=== PATIENT | male | born 1955 | race Caucasian/White ===

== ENCOUNTER → 2019-12-05 08:36 | Outpatient (BNVA) | payer OTHER, SELFPAY | PROVIDERS: PCP Nurse Practitioner Family; Visit Provider Student in an Organized Health Care Education/Training Program | DX: M06.00 Rheumatoid arthritis without rheumatoid factor, unspecified site (principal); E27.40 Unspecified adrenocortical insufficiency; M70.61 Trochanteric bursitis, right hip; M70.62 Trochanteric bursitis, left hip; Z79.899 Other long term (current) drug therapy | CPT/HCPCS: 20610; 99213 ==

== ENCOUNTER 2019-12-22 06:04 | Outpatient (REF) | payer OTHER, SELFPAY ==
[2019-12-22 08:16] LABS: Albumin Level 4.3 g/dL (3.5-5.0)
[2019-12-22 08:46] LABS: Vitamin D 25-OH Total 58.1 ng/mL (>30)
[2019-12-25 12:12] LABS: Calcitonin 9 pg/mL (<=10)
== END 2019-12-22 06:05 | disposition home or self-care (01) ==
LOC: HO.LAB 06:04
PROVIDERS: PCP Nurse Practitioner Family; Visit Provider Internal Medicine Endocrinology, Diabetes & Metabolism
DX: M85.88 Other specified disorders of bone density and structure, other site (principal)
CPT/HCPCS: 82040; 82306; 82308

== ENCOUNTER → 2020-01-21 07:39 | Outpatient (BNVA) | payer OTHER, SELFPAY | PROVIDERS: PCP Nurse Practitioner Family; Referring Provider Nurse Practitioner Family; Visit Provider Internal Medicine Endocrinology, Diabetes & Metabolism | DX: Z13.89 Encounter for screening for other disorder (principal) | CPT/HCPCS: Q3014 ==

== ENCOUNTER 2020-01-25 20:35 | Emergency (ER) | payer OTHER, SELFPAY ==
--- NOTE | 2020-01-25 20:43 | ED_ITS ---
HPI - Allergic Reaction General Chief complaint: Allergic Reaction Stated complaint: Allergic Reaction Time Seen by Provider: 01/25/20 20:41 Source: patient Mode of arrival: ambulatory Limitations: no limitations History of Present Illness HPI narrative: patient's history of frequent allergic reactions from multiple agents today just prior to arrival patient noticed similar allergic reaction with rash on his face difficulty in breathing tingling on his hands and tongue, his gave him 1 epi IM and he took 4 tablets of Benadryl prior to arrival now is feeling better but is still feel short of breath. Patient denies any throat swelling at this time no tongue swelling MD complaint: allergic reaction Onset (ago): minute(s) (30) Exposure: unknown Symptoms: rash, itching, facial swelling and difficulty breathing Severity: moderate Treatment prior to arrival: benadryl and epinephrine Previous Allergic Reaction History: anaphylaxis Related Data Home Medications Medication Instructions Recorded Confirmed denosumab 60 mg/mL subcutaneous 60 mg SUBCUT [id number] 12/03/19 01/21/20 syringe epinephrine 0.3 mg/0.3 mL 0.3 mg IM Q10M PRN 12/03/19 01/21/20 injection, auto-injector folic acid 1 mg tablet 1 mg PO DAILY 12/03/19 01/21/20 pravastatin 40 mg tablet 40 mg PO DAILY 12/03/19 01/21/20 blood sugar diagnostic #10 ea 01/21/20 01/21/20 lancets 28 gauge #100 ea 01/21/20 01/21/20 ropinirole 0.5 mg tablet 0.5 mg PO BEDTIME 01/21/20 01/21/20 Previous Rx's Medication Instructions Recorded aspirin 81 mg tablet,delayed 81 mg PO DAILY #90 tab 12/09/19 release methotrexate sodium 2.5 mg tablet See Rx Instructions PO QWEEK #120 12/18/19 tab tamsulosin 0.4 mg capsule 0.4 mg PO DAILY #90 cap 01/12/20 venlafaxine 75 mg capsule,extended 75 mg PO DAILY #90 cap 01/12/20 release 24 hr ketoconazole 2 % shampoo 1 applic TOPICAL 2XW 30 Days #120 01/14/20 ml cholecalciferol (vitamin D3) 50 50 mcg PO DAILY 90 Days #90 cap 01/21/20 mcg (2,000 unit) capsule metformin 500 mg tablet 500 mg PO BID 90 Days #180 tab 01/21/20 prednisone 1 mg tablet 5 mg PO DAILY 90 Days #450 tab 01/21/20 prednisone 5 mg tablet 5 mg PO DAILY 90 Days #90 tab 01/21/20 Allergies Allergy/AdvReac Type Severity Reaction Status Date / Time ibuprofen [From MOTRIN] Allergy Unknown ANAPHYLAXIS Unverified 11/20/19 15:38 methadone Allergy Unknown Verified 07/15/19 00:00 dogs/cats Allergy Unknown Uncoded 11/11/19 00:00 dust mites Allergy Unknown Uncoded 11/11/19 00:00 mice Allergy Unknown Uncoded 11/11/19 00:00 Motrin Allergy Unknown anaphylaxis Uncoded 07/15/19 00:00 NSAID Allergy Unknown Uncoded 11/11/19 00:00 NSAIDS Allergy Unknown Uncoded 07/15/19 00:00 Review of Systems Review of Systems: REVIEW OF SYSTEMS: Pertinent positives and negatives are stated above in the history. GEN: no fevers, chills, fatigue HEENT: no nasal congestion, sore throat, ear pain NEURO: no headache, dizziness, focal weakness PULM: no cough, shortness of breath CV: no chest pain, palpitations, LE edema ABD: no abdominal pain, nausea, vomiting, diarrhea : no dysuria, urgency, frequency SKIN: rash on the face and upper chest ROS otherwise negative x 10 PMFSH Past Medical History Medical History Adrenal 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 Diabetes type 2, controlled Obesity (BMI 30-39.9) Osteopenia Painful total knee replacement, right Vitamin D deficiency Surgical History History of knee replacement procedure of left knee History of knee replacement procedure of right knee Hx of cardiac cath Social History Social History Household Members: Spouse Housing: House Alcohol intake: current Alcohol intake frequency: a few times a month Alcohol type: beer and hard liquor Smoking Status: Former smoker Advance Directives: No Advance Directives Information Provided: No service: No Current occupational status: retired Physical Exam 2 Vital Signs: Vital Signs: Last Vital Signs Temp 98 F 01/25/20 20:45 Pulse 74 01/25/20 21:30 Resp 16 01/25/20 21:30 BP 136/62 01/25/20 21:30 Pulse Ox 95 01/25/20 20:45 Body Mass Index 39.0 Appearance: Alert. Oriented X3. No acute distress. anxious Eyes: Pupils equal, round and reactive to light. ENT: Pharynx normal. no swelling of tongue uvula or lips Neck: Normal inspection. Neck supple. CVS: Normal heart rate and rhythm. Pulses normal. Respiratory: No respiratory distress. decreased air entry bilateral Abdomen: Soft and nontender. Skin: Skin warm and dry. Normal skin color. Normal skin turgor. Extremities: No lower extremity edema. Good range of movement Neuro: Oriented X 3. No motor deficit. No sensory deficit. Course Reevaluation(s) Reevaluation #1: patient feeling much better now tingling since she has since gone no shortness of breath no rash at this time will discharge him home patient received IV Solu-Medrol IV Pepcid and albuterol treatment in the ER and already had EpiPen at home and took 4 Benadryl at home prior to arrival Time: 21:36 Discharge Plan Discharge Clinical Impression: Allergic reaction Patient Disposition: Home, Self-Care Instructions: Anaphylaxis (ED) Additional Instructions: continue your EpiPen as needed for severe allergic reactions, take Benadryl as advised. Prescriptions: No Action aspirin 81 mg tablet,delayed release (DR/EC) 81 mg PO DAILY Qty: 90 RF: 4 methotrexate sodium 2.5 mg tablet See Rx Instructions PO QWEEK Qty: 120 RF: 0 venlafaxine 75 mg capsule,extended release 24hr 75 mg PO DAILY Qty: 90 RF: 0 tamsulosin 0.4 mg capsule 0.4 mg PO DAILY Qty: 90 RF: 0 ketoconazole 2 % shampoo 1 applic topical 2XW 30 Days Qty: 120 RF: 0 epinephrine [EpiPen] 0.3 mg/0.3 mL auto-injector 0.3 mg IM Q10M PRNRF: 0 folic acid 1 mg tablet 1 mg PO DAILY RF: 0 pravastatin 40 mg tablet 40 mg PO DAILY RF: 0 Prolia 60 mg/mL syringe 60 mg subcut [id number] RF: 0 (DME) FreeStyle Lite Strips Strip See Rx Instructions ea Not Applicable .MEDSUPPLY Qty: 10 RF: 0 ropinirole 0.5 mg tablet 0.5 mg PO BEDTIME RF: 0 (DME) lancets 28 gauge misc See Rx Instructions ea topical DAILY Qty: 100 RF: 0 prednisone 5 mg tablet 5 mg PO DAILY 90 Days Qty: 90 RF: 1 prednisone 1 mg tablet 5 mg PO DAILY 90 Days Qty: 450 RF: 1 cholecalciferol (vitamin D3) 50 mcg (2,000 unit) capsule 50 mcg PO DAILY 90 Days Qty: 90 RF: 1 metformin 500 mg tablet 500 mg PO BID 90 Days Qty: 180 RF: 1 Interventions: ED Discharge Assessment Last Done: 01/25/20 21:50 Discharge Date/Time: 01/25/20 21:52
[2020-01-25 20:45] VITALS: BP 181/86; PULSE 70; RESP 16; TEMP 36.6; O2SAT 95; BMI 39.0
[2020-01-25] MEDS: Albuterol Sulfate 90 MCG 8 GM INHALER 4 PUFF INHALE (20:54)
[2020-01-25] MEDS: methylPREDNISolone Sod Succ/PF 125 MG/2 ML VIAL IVPUSH ×2 (20:54)
[2020-01-25] MEDS: Famotidine/PF 20 MG/2 ML VIAL IVPUSH (20:55)
--- NOTE | 2020-01-25 21:29 | PC.NURSE ---
SPOKE WITH IN WR FOR UPDATE. PT STATES IM FEELING BETTER . PT REMAINS ALERT, RESPIRATIONS EASY, N/L. SKIN W/D.
[2020-01-25 21:30] VITALS: BP 136/62; PULSE 74; RESP 16
--- NOTE | 2020-01-25 21:34 | PC.NURSE ---
IN ROOM FOR RE-EVAL.
== END 2020-01-25 21:52 | disposition home or self-care (01) ==
PROVIDERS: Emergency Provider Internal Medicine; PCP Nurse Practitioner Family
DX: L23.9 Allergic contact dermatitis, unspecified cause (principal); Z79.899 Other long term (current) drug therapy; Z87.891 Personal history of nicotine dependence
CPT/HCPCS: 96374; 96375; 99284; J2930

== ENCOUNTER → 2020-03-11 09:26 | Outpatient (BNVA) | payer OTHER, SELFPAY | PROVIDERS: PCP Nurse Practitioner Family; Visit Provider Student in an Organized Health Care Education/Training Program | DX: M06.00 Rheumatoid arthritis without rheumatoid factor, unspecified site (principal); M70.61 Trochanteric bursitis, right hip; M70.62 Trochanteric bursitis, left hip; E27.3 Drug-induced adrenocortical insufficiency; Z79.899 Other long term (current) drug therapy | CPT/HCPCS: 20610; 99212 ==

== ENCOUNTER 2020-03-11 10:24 | Outpatient (REF) | payer OTHER, SELFPAY ==
[2020-03-11 14:27] LABS: MANUAL DIFF FLAG NO
[2020-03-11 14:32] LABS: Basophils Percent Auto 0.5 % (0-2); Eosinophils Absolute Auto 0.2 X10*3/uL (0.0-0.4); Eosinophils Percent Auto 2.1 % (0-4); Hematocrit 42.2 % (42-52); Imm Gran Abs Auto 0.07 X10*3/uL (0.00-0.03); Imm Gran Pct Auto 0.8 % (0.0-0.4); Lymphocytes Percent Auto 22.7 % (20-40); Mean Corpuscular HGB Conc 33.2 g/dl (31.0-36.0); Mean Corpuscular Hemoglobin 33.1 pg (27.0-33.0); Mean Corpuscular Volume 99.8 fL (80-98); Mean Platelet Volume 10.6 fL (9.4-12.4); Monocytes Absolute Auto 0.8 X10*3/uL (0.1-1.2); Monocytes Percent Auto 9.5 % (2-11); Neutrophils Absolute Auto 5.7 X10*3/uL (2.0-8.3); Neutrophils Percent Auto 64.4 % (45-73); Platelet Count 154 X10*3/uL (160-400); Red Blood Count 4.23 X10*6/uL (4.60-5.80); Red Cell Distribution Width 13.8 % (11.0-16.0); White Blood Count 8.8 X10*3/uL (4.8-10.8)
[2020-03-11 15:07] LABS: Alanine Aminotransferase 23 U/L (0-40); Albumin Level 4.2 g/dL (3.5-5.0); Alkaline Phosphatase 44 U/L (39-117); Anion Gap 15 (12-20); Aspartate Amino Transferase 14 U/L (5-37); Bilirubin Total 0.8 mg/dL (0.0-1.0); Blood Urea Nitrogen 16 mg/dL (9-16); C Reactive Protein 0.38 mg/dL (< or = 0.50); Carbon Dioxide 25 mmol/L (22-29); Chloride 104 mmol/L (96-108); Estimated Glomerular Filt Rate > 60; Glucose Random 97 mg/dL (60-115); Potassium 3.9 mmol/l (3.3-5.1); Sodium 140 mmol/L (135-145); Total Protein 6.2 g/dL (6.5-8.0)
[2020-03-11 15:42] LABS: Erythrocyte Sedimentation Rate 7 MM/HR (0-15)
== END 2020-03-11 10:25 | disposition home or self-care (01) ==
LOC: HO.10HDL 10:24
PROVIDERS: Visit Provider Student in an Organized Health Care Education/Training Program
DX: M06.00 Rheumatoid arthritis without rheumatoid factor, unspecified site (principal)
CPT/HCPCS: 36415; 80053; 85025; 85652; 86140

== ENCOUNTER 2020-05-19 10:04 | Outpatient (REF) | payer OTHER, SELFPAY ==
[2020-05-19 10:27] LABS: Basophils Percent Auto 0.4 % (0-2); Eosinophils Absolute Auto 0.1 X10*3/uL (0.0-0.4); Eosinophils Percent Auto 1.2 % (0-4); Hematocrit 41.4 % (42-52); Hemoglobin 13.9 g/dl (14.0-18.0); Imm Gran Abs Auto 0.07 X10*3/uL (0.00-0.03); Lymphocytes Absolute Auto 0.8 X10*3/uL (1.2-4.9); Lymphocytes Percent Auto 12.6 % (20-40); MANUAL DIFF FLAG NO; Mean Corpuscular HGB Conc 33.6 g/dl (31.0-36.0); Mean Corpuscular Hemoglobin 32.2 pg (27.0-33.0); Mean Corpuscular Volume 95.8 fL (80-98); Mean Platelet Volume 9.2 fL (9.4-12.4); Monocytes Absolute Auto 0.5 X10*3/uL (0.1-1.2); Monocytes Percent Auto 7.2 % (2-11); Neutrophils Absolute Auto 5.2 X10*3/uL (2.0-8.3); Neutrophils Percent Auto 77.6 % (45-73); Platelet Count 186 X10*3/uL (160-400); Red Blood Count 4.32 X10*6/uL (4.60-5.80); Red Cell Distribution Width 13.2 % (11.0-16.0); White Blood Count 6.7 X10*3/uL (4.8-10.8)
[2020-05-19 11:11] LABS: Alanine Aminotransferase 27 U/L (0-40); Albumin Level 4.3 g/dL (3.5-5.0); Alkaline Phosphatase 49 U/L (39-117); Anion Gap 13 (12-20); Aspartate Amino Transferase 19 U/L (5-37); Blood Urea Nitrogen 16 mg/dL (9-16); C Reactive Protein 0.44 mg/dL (< or = 0.50); Calcium 9.2 mg/dL (8.4-10.2); Carbon Dioxide 24 mmol/L (22-29); Chloride 104 mmol/L (96-108); Estimated Glomerular Filt Rate > 60; Glucose Fasting 127 mg/dL (60-99); Potassium 4.2 mmol/L (3.3-5.1); Sodium 137 mmol/L (135-145); Total Protein 6.4 g/dL (6.5-8.0)
[2020-05-19 11:18] LABS: Vitamin D 25-OH Total 42.3 ng/mL (>30)
[2020-05-25 14:47] LABS: N-Telopeptide 21 (see note); NTXCreaRU 70 mg/dL (20-320)
== END 2020-05-19 10:05 | disposition home or self-care (01) ==
LOC: HO.10HDL 10:04
PROVIDERS: Absent Provider Student in an Organized Health Care Education/Training Program; Visit Provider Internal Medicine Endocrinology, Diabetes & Metabolism
DX: E27.3 Drug-induced adrenocortical insufficiency (principal); T38.0X5A Adverse effect of glucocorticoids and synthetic analogues, initial encounter; M13.80 Other specified arthritis, unspecified site; Z79.899 Other long term (current) drug therapy
CPT/HCPCS: 36415; 80053; 82306; 82523; 85025; 86140

== ENCOUNTER → 2020-06-02 07:26 | Outpatient (BNVA) | payer OTHER, SELFPAY | PROVIDERS: PCP Nurse Practitioner Family; Visit Provider Internal Medicine Endocrinology, Diabetes & Metabolism | DX: E27.3 Drug-induced adrenocortical insufficiency (principal); M85.80 Other specified disorders of bone density and structure, unspecified site; E11.9 Type 2 diabetes mellitus without complications; E55.9 Vitamin D deficiency, unspecified; E66.9 Obesity, unspecified; E11.40 Type 2 diabetes mellitus with diabetic neuropathy, unspecified | CPT/HCPCS: 96402; 99212; J0897 ==

== ENCOUNTER 2020-06-17 10:16 | Outpatient (REF) | payer OTHER, SELFPAY ==
--- NOTE | ~2020-06-17 | XR_ITS ---
EXAMINATION: XR CHEST CLINICAL INFORMATION: Shortness of breath COMPARISON: None TECHNIQUE: 2 views of the chest were obtained. FINDINGS: The lungs are well-expanded and clear of acute process. The heart size and pulmonary vascularity is normal. There is mild ventral spondylosis dorsal spine. No lytic process. XR/XR chest 2V IMPRESSION: Unremarkable chest exam.
== END 2020-06-17 10:17 | disposition home or self-care (01) ==
LOC: HO.HMGCX 10:16
PROVIDERS: PCP Nurse Practitioner Family; Visit Provider Nurse Practitioner Family
DX: R06.02 Shortness of breath (principal)
CPT/HCPCS: 71046

== ENCOUNTER 2020-06-22 07:33 | Outpatient (REF) | payer OTHER, SELFPAY ==
[2020-06-22 10:42] LABS: Alanine Aminotransferase 28 U/L (0-40); Albumin Level 4.6 g/dL (3.5-5.0); Alkaline Phosphatase 45 U/L (39-117); Anion Gap 15 (12-20); Aspartate Amino Transferase 18 U/L (5-37); Bilirubin Total 1.4 mg/dL (0.0-1.0); Blood Urea Nitrogen 20 mg/dL (9-16); Calcium 9.1 mg/dL (8.4-10.2); Carbon Dioxide 25 mmol/L (22-29); Chloride 105 mmol/L (96-108); Cholesterol 179 mg/dL; Estimated Glomerular Filt Rate > 60; Glucose Fasting 96 mg/dL (60-99); HDL Cholesterol 57 mg/dL; LDL Cholesterol Calculated 95 mg/dl; Potassium 4.3 mmol/L (3.3-5.1); Sodium 141 mmol/L (135-145); Total Protein 6.7 g/dL (6.5-8.0); Triglycerides 137 mg/dL
[2020-06-22 10:43] LABS: Estimated Average Glucose 126 mg/dL
[2020-06-22 10:53] LABS: Prostate Specific Antigen Scr 2.22 ng/mL (<0.05-4.0); TSH reflex Free T4 0.99 uIU/mL (0.32-4.0)
[2020-06-22 11:08] LABS: Vitamin B12 337 pg/mL (200-900)
[2020-06-22 12:29] LABS: Creatinine Urine 178.88 mg/dL; Microalbum/Creatinine Ratio Ur 12.2 ug/mg cr
== END 2020-06-22 07:34 | disposition home or self-care (01) ==
LOC: HO.10HDL 07:33
PROVIDERS: Absent Provider Nurse Practitioner Family; Referring Provider Internal Medicine; Visit Provider Internal Medicine Endocrinology, Diabetes & Metabolism
DX: Z00.00 Encounter for general adult medical examination without abnormal findings (principal); E11.40 Type 2 diabetes mellitus with diabetic neuropathy, unspecified; Z12.5 Encounter for screening for malignant neoplasm of prostate; M85.80 Other specified disorders of bone density and structure, unspecified site
CPT/HCPCS: 36415; 80053; 80061; 82043; 82607; 83036; 84153; 84443

== ENCOUNTER → 2020-07-05 12:57 | Outpatient (BNVA) | payer OTHER, SELFPAY | PROVIDERS: PCP Nurse Practitioner Family; Referring Provider Nurse Practitioner Family; Visit Provider Internal Medicine | DX: I25.10 Atherosclerotic heart disease of native coronary artery without angina pectoris (principal); R06.02 Shortness of breath; E66.01 Morbid (severe) obesity due to excess calories; Z68.41 Body mass index [BMI] 40.0-44.9, adult; Z71.3 Dietary counseling and surveillance; Z87.891 Personal history of nicotine dependence; Z79.899 Other long term (current) drug therapy | CPT/HCPCS: 99212 ==

== ENCOUNTER → 2020-07-08 09:46 | Outpatient (BNVA) | payer OTHER, SELFPAY | PROVIDERS: PCP Nurse Practitioner Family; Visit Provider Student in an Organized Health Care Education/Training Program | DX: M06.00 Rheumatoid arthritis without rheumatoid factor, unspecified site (principal); M70.61 Trochanteric bursitis, right hip; M70.62 Trochanteric bursitis, left hip; Z79.899 Other long term (current) drug therapy; E27.3 Drug-induced adrenocortical insufficiency | CPT/HCPCS: 20610; 99212 ==

== ENCOUNTER → 2020-08-06 07:36 | Outpatient (REF) | payer OTHER, SELFPAY ==
--- NOTE | 2020-08-06 07:38 | CA_ITS ---
Transthoracic Echocardiogram Patient (Last, First, Middle): Lino Nayak K Gender: Male Date of : 1955 Age: 65 Procedure Date: 08/06/2020 Procedure Type: Transthoracic Echocardiogram Location: OP Height: 175.26 cm Weight: 125.19 kg BSA: 2.37 m2 Heart Rate: bpm BP: 130 / 80 mmHg Assistant Teaching Professor: ANIBAL Referring MD: Ari Orta MD Symptoms: R06.02 - Shortness of breath Study Quality: Technically Difficult/contrast Conclusions: - Normal left ventricular size and systolic function. - Diastolic function is normal for age. - Normal right ventricular cavity size and systolic function. - The left atrium is mildly dilated. - Mildly elevated right atrial pressure. - There is mild dilatation of the ascending aorta. Findings Procedure Information Contrast agent, definity, is being given per protocol without apparent complications. Left Ventricle Normal left ventricular size and systolic function. There is mildly increased left ventricular wall thickness. The visually estimated ejection fraction is between 55-60%. There is no evidence of regional wall motion abnormalities. Diastolic function is normal for age. Right Ventricle Normal right ventricular cavity size and systolic function. Atria The left atrium is mildly dilated. The right atrium is normal in size. Aortic Valve There is a normal trileaflet aortic valve. There is mild calcification of the aortic valve. There is no aortic valve stenosis. There is no aortic valve regurgitation. Mitral Valve Normal mitral valve structure and function. There is trace mitral valve regurgitation. There is no mitral valve stenosis. Pulmonic Valve The pulmonic valve is likely normal. Tricuspid Valve Normal tricuspid valve structure and function. There is trace tricuspid valve regurgitation. Mildly elevated right atrial pressure. There is no evidence of pulmonary hypertension. Great Vessels There is mild dilatation of the ascending aorta. Venous The inferior vena cava is dilated and collapses greater than 50% with inspiration. Pericardium/Pleural There is no evidence of pericardial effusion. Prior Study Comparison No significant change compared to prior study dated: 08/27/2018. Measurements 2D Linear Measurements IVSd: 1.17 0.6-0.9/0.6-1.0 cm LVIDd: 5.89 3.9-5.3/4.2-5.9 cm LVIDd Index: 2.49 2.4-3.2/2.2-3.1 cm/m2 LVIDs: 4.14 2.0-3.6 cm LVPWd: 1.14 0.7-1.1 cm Ao Root: 3.30 2.1-3.5 cm LA Diam: 4.50 2.7-3.8/3.0-4.0 cm LAIDs Index: 1.90 1.5-2.3 cm/m2 LV Mass: 360.91 67-162/88-224 g LV Mass Index: 152.28 43-95/49-115 g/m2 LVOT Diam: 2.50 3.0+(-)1.3 cm 2D Systolic Function EF 4C: 58.50 >55% EF 2C: 62.20 >55% EF BiP: 58.80 >55% Mitral Valve MV Pk E: 0.79 MV PK A: 0.56 MV Decel Time: 248.00 E/A: 1.40 E'Lateral: 10.40 E'Medial: 8.70 E/E' Med: 9.10 E/E' Lat: 7.60 PHT: 73.00 MVA PHT: 3.01 Decel [place]: 3.18 Aortic Valve AoV Pk [place]: 1.82 AoV Mn [place]: 1.19 AoV VTI: 0.44 AoV Pk Grad: 13.00 Aov Mn Grad: 7.00 CALEB Cont.VTI: 2.99 LVOT LVOT Pk [place]: 1.01 LVOT Mn [place]: 0.67 LVOT VTI: 0.27 LVOT Pk Grad: 4.00 LVOT Mn Grad: 2.00 LVOT Diam: 2.50 LVOT Area: 4.91 Diastolic Function MV Pk E: 0.79 MV Pk A: 0.56 E/A: 1.40 E'Medial: 8.70 E/E' Med: 9.10 E' Laterial: 10.40 E/E' Lat: 7.60 Tricuspid Valve TR Pk [place]: 1.72 TR Pk Grad: 12.00 RA Press: 8.00 RVSP: 20.00 Great Vessels Aorta Ao Root-2D: 3.30 2.0-3.7 cm Ao Asc: 3.90 2.1-3.4 cm Updated in Other Vendor System with Status of Final Rohith Escamilla MD electronically signed on 08/08/2020 9:28:57 PM with status of Final
== END ==
LOC: HO.CARD 07:36
PROVIDERS: Visit Provider Internal Medicine
DX: R06.02 Shortness of breath (principal)
CPT/HCPCS: 93306; Q9957

== ENCOUNTER 2020-08-25 07:35 | Outpatient (REF) | payer OTHER, SELFPAY ==
[2020-08-25 10:43] LABS: Bilirubin Direct 0.2 mg/dL (0.0-0.5); Bilirubin Total 0.8 mg/dL (0.0-1.0)
== END 2020-08-25 07:36 | disposition home or self-care (01) ==
LOC: HO.10HDL 07:35
PROVIDERS: Visit Provider Nurse Practitioner Family
DX: R17 Unspecified jaundice (principal)
CPT/HCPCS: 36415; 82247; 82248

== ENCOUNTER 2020-09-02 09:18 | Outpatient (REF) | payer OTHER, SELFPAY ==
--- NOTE | ~2020-09-02 | XR_ITS ---
EXAMINATION: XR BILATERAL HIPS CLINICAL INFORMATION: Prior radiographs, most recently 05/08/2019. COMPARISON: None TECHNIQUE: AP and frog-leg lateral views of each hip were obtained. FINDINGS: There is bony demineralization. The bilateral acetabular joint spaces are well-maintained. There is mild subchondral sclerosis and peripheral osteophyte formation of the bilateral acetabular roofs. The femoral heads appear smooth. This no fracture or dislocation. Multiple pelvic phleboliths are seen. There is no foreign body or soft tissue gas. XR/XR hips BRYNN min 3V IMPRESSION: Mild osteoarthritic change is seen of the bilateral hips. There is no fracture or dislocation seen.
== END 2020-09-02 09:19 | disposition home or self-care (01) ==
LOC: HO.HMGCX 09:18
PROVIDERS: PCP Nurse Practitioner Family; Visit Provider Nurse Practitioner Family
DX: M25.551 Pain in right hip (principal); M25.552 Pain in left hip
CPT/HCPCS: 73522

== ENCOUNTER 2020-09-30 10:34 | Outpatient (REF) | payer OTHER, SELFPAY ==
[2020-09-30 13:41] LABS: MANUAL DIFF FLAG NO
[2020-09-30 13:59] LABS: Alanine Aminotransferase 25 U/L (0-40); Albumin Level 4.2 g/dL (3.5-5.0); Alkaline Phosphatase 40 U/L (39-117); Anion Gap 13 (12-20); Aspartate Amino Transferase 17 U/L (5-37); Bilirubin Total 1.2 mg/dL (0.0-1.0); Blood Urea Nitrogen 14 mg/dL (9-16); C Reactive Protein 0.27 mg/dL (< or = 0.50); Calcium 9.3 mg/dL (8.4-10.2); Carbon Dioxide 25 mmol/L (22-29); Chloride 107 mmol/L (96-108); Estimated Glomerular Filt Rate > 60; Glucose Random 101 mg/dL (60-115); Potassium 4.1 mmol/L (3.3-5.1); Sodium 141 mmol/L (135-145); Total Protein 6.1 g/dL (6.5-8.0)
[2020-09-30 14:00] LABS: Basophils Percent Auto 0.3 % (0-2); Eosinophils Absolute Auto 0.2 X10*3/uL (0.0-0.4); Eosinophils Percent Auto 2.7 % (0-4); Hematocrit 42.2 % (42-52); Hemoglobin 13.8 g/dl (14.0-18.0); Imm Gran Abs Auto 0.05 X10*3/uL (0.00-0.03); Imm Gran Pct Auto 0.7 % (0.0-0.4); Lymphocytes Absolute Auto 1.5 X10*3/uL (1.2-4.9); Lymphocytes Percent Auto 20.4 % (20-40); Mean Corpuscular HGB Conc 32.7 g/dl (31.0-36.0); Mean Corpuscular Hemoglobin 32.5 pg (27.0-33.0); Mean Corpuscular Volume 99.3 fL (80-98); Mean Platelet Volume 10.1 fL (9.4-12.4); Monocytes Absolute Auto 0.8 X10*3/uL (0.1-1.2); Monocytes Percent Auto 11.1 % (2-11); Neutrophils Absolute Auto 4.6 X10*3/uL (2.0-8.3); Neutrophils Percent Auto 64.8 % (45-73); Platelet Count 185 X10*3/uL (160-400); Red Blood Count 4.25 X10*6/uL (4.60-5.80); Red Cell Distribution Width 14.3 % (11.0-16.0); White Blood Count 7.1 X10*3/uL (4.8-10.8)
== END 2020-09-30 10:35 | disposition home or self-care (01) ==
LOC: HO.10HDL 10:34
PROVIDERS: Visit Provider Student in an Organized Health Care Education/Training Program
DX: M06.00 Rheumatoid arthritis without rheumatoid factor, unspecified site (principal)
CPT/HCPCS: 36415; 80053; 85025; 86140

== ENCOUNTER 2020-10-08 10:46 | Outpatient (REF) | payer OTHER, SELFPAY ==
[2020-10-08 12:08] LABS: MANUAL DIFF FLAG NO
[2020-10-08 12:17] LABS: Basophils Percent Auto 0.4 % (0-2); Eosinophils Absolute Auto 0.1 X10*3/uL (0.0-0.4); Eosinophils Percent Auto 0.7 % (0-4); Hematocrit 43.5 % (42-52); Hemoglobin 14.4 g/dl (14.0-18.0); Imm Gran Abs Auto 0.05 X10*3/uL (0.00-0.03); Imm Gran Pct Auto 0.6 % (0.0-0.4); Lymphocytes Absolute Auto 0.7 X10*3/uL (1.2-4.9); Lymphocytes Percent Auto 8.1 % (20-40); Mean Corpuscular HGB Conc 33.1 g/dl (31.0-36.0); Mean Corpuscular Volume 99.5 fL (80-98); Mean Platelet Volume 9.4 fL (9.4-12.4); Monocytes Absolute Auto 0.5 X10*3/uL (0.1-1.2); Monocytes Percent Auto 6.6 % (2-11); Neutrophils Absolute Auto 6.8 X10*3/uL (2.0-8.3); Neutrophils Percent Auto 83.6 % (45-73); Platelet Count 187 X10*3/uL (160-400); Red Blood Count 4.37 X10*6/uL (4.60-5.80); Red Cell Distribution Width 14.2 % (11.0-16.0); White Blood Count 8.1 X10*3/uL (4.8-10.8)
[2020-10-08 12:30] LABS: Alanine Aminotransferase 28 U/L (0-40); Albumin Level 4.3 g/dL (3.5-5.0); Alkaline Phosphatase 48 U/L (39-117); Anion Gap 13 (12-20); Aspartate Amino Transferase 20 U/L (5-37); Bilirubin Total 1.2 mg/dL (0.0-1.0); Blood Urea Nitrogen 14 mg/dL (9-16); C Reactive Protein 0.34 mg/dL (< or = 0.50); Calcium 10.3 mg/dL (8.4-10.2); Carbon Dioxide 30 mmol/L (22-29); Chloride 104 mmol/L (96-108); Estimated Glomerular Filt Rate > 60; Glucose Random 135 mg/dL (60-115); Potassium 5.2 mmol/L (3.3-5.1); Sodium 142 mmol/L (135-145); Total Protein 6.6 g/dL (6.5-8.0)
[2020-10-08 12:55] LABS: HBS Num1 0.26 mIU/mL (0-7.99); ~Hepatitis B Surface Antibody NONREACTIVE (Nonreactive)
[2020-10-08 13:01] LABS: HBc Num1 0.05 S/CO (0.00-0.79); HBsAGNum1 0.16 S/CO (0.00-0.99); Hepatitis A Antibody IgM 0.13 Index (0-0.79); Hepatitis B Core Antibody Nonreactive (Nonreactive); Hepatitis B Surface Antigen Negative (Negative); ~HepC Num1 0.07 S/CO (0.00-0.79); ~Hepatitis A Antibody IgM Nonreactive (Nonreactive); ~Hepatitis C Antibody Nonreactive (Nonreactive)
[2020-10-08 13:02] LABS: Erythrocyte Sedimentation Rate 2 MM/HR (0-15)
[2020-10-10 18:51] LABS: TS Negative Control Passed; TS Panel A 1; TS Panel B 0; TS Positive Control Passed; TSpotTB Negative (SeeBelow)
== END 2020-10-08 10:47 | disposition home or self-care (01) ==
LOC: HO.LAB 10:46
PROVIDERS: PCP Nurse Practitioner Family; Visit Provider Student in an Organized Health Care Education/Training Program
DX: M70.61 Trochanteric bursitis, right hip (principal); M70.62 Trochanteric bursitis, left hip; M06.00 Rheumatoid arthritis without rheumatoid factor, unspecified site; E27.3 Drug-induced adrenocortical insufficiency; T38.0X5A Adverse effect of glucocorticoids and synthetic analogues, initial encounter; Z79.899 Other long term (current) drug therapy
CPT/HCPCS: 20610; 36415; 80053; 85025; 85652; 86140; 86481; 86704; 86706; 86709; 86803; 87340; 99212

== ENCOUNTER 2020-10-26 10:49 | Outpatient (REF) | payer OTHER, SELFPAY ==
[2020-10-26 13:16] LABS: Hematocrit 42.8 % (42-52); Hemoglobin 14.1 g/dl (14.0-18.0); Mean Corpuscular HGB Conc 32.9 g/dl (31.0-36.0); Mean Corpuscular Hemoglobin 32.7 pg (27.0-33.0); Mean Corpuscular Volume 99.3 fL (80-98); Platelet Count 177 X10*3/uL (160-400); Red Blood Count 4.31 X10*6/uL (4.60-5.80); Red Cell Distribution Width 13.9 % (11.0-16.0); White Blood Count 8.7 X10*3/uL (4.8-10.8)
[2020-10-26 13:47] LABS: Alanine Aminotransferase 21 U/L (0-40); Albumin Level 4.4 g/dL (3.5-5.0); Alkaline Phosphatase 45 U/L (39-117); Anion Gap 13 (12-20); Aspartate Amino Transferase 12 U/L (5-37); Bilirubin Total 0.9 mg/dL (0.0-1.0); Blood Urea Nitrogen 10 mg/dL (9-16); Calcium 9.7 mg/dL (8.4-10.2); Carbon Dioxide 26 mmol/L (22-29); Chloride 105 mmol/L (96-108); Estimated Glomerular Filt Rate > 60; Glucose Random 128 mg/dL (60-115); Iron 70 mcg/dL (45-160); Potassium 4.3 mmol/L (3.3-5.1); Sodium 140 mmol/L (135-145); Total Protein 6.4 g/dL (6.5-8.0)
[2020-10-26 14:10] LABS: TSH reflex Free T4 0.64 uIU/mL (0.32-4.0)
[2020-10-26 14:21] LABS: Ferritin 151 ng/mL (20-250)
[2020-10-26 14:26] LABS: Folate > 20.0 ng/mL (> or = 4.0); Vitamin B12 302 pg/mL (200-900)
[2020-10-27 14:58] LABS: Percent Iron Saturation 22 % (15-50); Total Iron Binding Capacity 319 mcg/dL (228-428); Unsaturated Iron Binding 249 ug/dL
[2020-10-27 21:21] LABS: Lyme Abs Screen <0.90 index
[2020-11-02 14:57] LABS: Testosterone, Free 42.1 pg/mL (35.0-155.0); Testosterone, Total 290 ng/dL (250-1100)
== END 2020-10-26 10:50 | disposition home or self-care (01) ==
LOC: HO.10HDL 10:49
PROVIDERS: Visit Provider Nurse Practitioner Family
DX: Z01.84 Encounter for antibody response examination (principal); R53.83 Other fatigue
CPT/HCPCS: 36415; 80053; 82607; 82728; 82746; 83540; 84402; 84403; 84443; 85027; 86617; 86618

== ENCOUNTER → 2020-11-10 12:51 | Outpatient (BNVA) | payer OTHER, SELFPAY | PROVIDERS: PCP Nurse Practitioner Family; Referring Provider Nurse Practitioner Family; Visit Provider Internal Medicine | DX: I25.10 Atherosclerotic heart disease of native coronary artery without angina pectoris (principal); E66.01 Morbid (severe) obesity due to excess calories; E11.8 Type 2 diabetes mellitus with unspecified complications | CPT/HCPCS: 99212 ==

== ENCOUNTER → 2020-12-06 09:18 | Outpatient (BNVA) | payer OTHER, SELFPAY | PROVIDERS: PCP Nurse Practitioner Family; Visit Provider Internal Medicine | DX: E27.3 Drug-induced adrenocortical insufficiency (principal); T38.0X5A Adverse effect of glucocorticoids and synthetic analogues, initial encounter; E24.2 Drug-induced Cushing's syndrome; E55.9 Vitamin D deficiency, unspecified | CPT/HCPCS: 99212 ==

== ENCOUNTER 2020-12-06 10:20 | Outpatient (REF) | payer OTHER, SELFPAY ==
[2020-12-06 11:49] LABS: Estimated Average Glucose 123 mg/dL; Hemoglobin A1c % 5.9 %
[2020-12-06 11:59] LABS: Alanine Aminotransferase 33 U/L (0-40); Albumin Level 4.3 g/dL (3.5-5.0); Alkaline Phosphatase 40 U/L (39-117); Anion Gap 11 (12-20); Aspartate Amino Transferase 19 U/L (5-37); Bilirubin Total 0.8 mg/dL (0.0-1.0); Blood Urea Nitrogen 13 mg/dL (9-16); Calcium 9.7 mg/dL (8.4-10.2); Carbon Dioxide 26 mmol/L (22-29); Chloride 106 mmol/L (96-108); Cholesterol 174 mg/dL; Estimated Glomerular Filt Rate > 60; Glucose Random 128 mg/dL (60-115); HDL Cholesterol 60 mg/dL; LDL Cholesterol Calculated 87 mg/dl; Potassium 4.1 mmol/L (3.3-5.1); Sodium 139 mmol/L (135-145); Total Protein 6.3 g/dL (6.5-8.0); Triglycerides 138 mg/dL
[2020-12-06 12:21] LABS: Vitamin D 25-OH Total 49.7 ng/mL (>30)
[2020-12-06 12:57] LABS: Creatinine Urine 139.21 mg/dL; Microalbum/Creatinine Ratio Ur 12.9 ug/mg cr
[2020-12-07 10:12] LABS: LDL Cholesterol Direct 94 mg/dL (<100)
[2020-12-08 18:25] LABS: Adrenocorticotropic Hormone <5 pg/mL (6-50)
== END 2020-12-06 10:21 | disposition home or self-care (01) ==
LOC: HO.10HDL 10:20
PROVIDERS: Visit Provider Internal Medicine
DX: E24.2 Drug-induced Cushing's syndrome (principal); E55.9 Vitamin D deficiency, unspecified
CPT/HCPCS: 36415; 80053; 80061; 82043; 82306; 82533; 83036; 83721

== ENCOUNTER 2020-12-07 08:04 | Outpatient (REF) | payer OTHER, SELFPAY | END 2020-12-07 08:05 | disposition home or self-care (01) | LOC: HO.LAB 08:04 | PROVIDERS: PCP Nurse Practitioner Family; Visit Provider Internal Medicine | DX: E24.2 Drug-induced Cushing's syndrome (principal) | CPT/HCPCS: 82024 ==

== ENCOUNTER → 2021-01-10 13:30 | Outpatient (BNVA) | payer OTHER, SELFPAY | PROVIDERS: PCP Nurse Practitioner Family; Visit Provider Internal Medicine | DX: E24.2 Drug-induced Cushing's syndrome (principal); E55.9 Vitamin D deficiency, unspecified; E27.3 Drug-induced adrenocortical insufficiency; T38.0X5A Adverse effect of glucocorticoids and synthetic analogues, initial encounter; Z79.899 Other long term (current) drug therapy | CPT/HCPCS: 82947; 99212 ==

== ENCOUNTER 2021-01-24 07:05 | Outpatient (REF) | payer OTHER, SELFPAY ==
[2021-01-24 07:53] LABS: Alanine Aminotransferase 24 U/L (0-40); Albumin Level 4.1 g/dL (3.5-5.0); Alkaline Phosphatase 41 U/L (39-117); Anion Gap 12 (12-20); Aspartate Amino Transferase 15 U/L (5-37); Bilirubin Total 1.2 mg/dL (0.0-1.0); Blood Urea Nitrogen 17 mg/dL (9-16); Calcium 9.3 mg/dL (8.4-10.2); Carbon Dioxide 26 mmol/L (22-29); Chloride 106 mmol/L (96-108); Estimated Glomerular Filt Rate > 60; Glucose Fasting 106 mg/dL (60-99); Potassium 4.2 mmol/L (3.3-5.1); Sodium 140 mmol/L (135-145); Total Protein 6.3 g/dL (6.5-8.0)
[2021-01-24 08:15] LABS: Thyroid Stimulating Hormone 1.16 uIU/mL (0.32-4.0); Vitamin D 25-OH Total 39.8 ng/mL (>30)
[2021-01-24 08:59] LABS: Cortisol Random 2.5 ug/dL
[2021-01-26 15:16] LABS: Adrenocorticotropic Hormone 6 pg/mL (6-50)
[2021-01-27 13:01] LABS: N-Telopeptide 17 (see note); NTXCreaRU 142 mg/dL (20-320)
== END 2021-01-24 07:06 | disposition home or self-care (01) ==
LOC: HO.LAB 07:05
PROVIDERS: Internal Medicine Endocrinology, Diabetes & Metabolism; PCP Nurse Practitioner Family; Visit Provider Internal Medicine
DX: E24.2 Drug-induced Cushing's syndrome (principal); E55.9 Vitamin D deficiency, unspecified; E27.3 Drug-induced adrenocortical insufficiency; T38.0X5A Adverse effect of glucocorticoids and synthetic analogues, initial encounter
CPT/HCPCS: 36415; 80048; 80053; 82024; 82306; 82523; 82533; 84439; 84443

== ENCOUNTER 2021-03-10 10:28 | Outpatient (REF) | payer OTHER, SELFPAY ==
--- NOTE | ~2021-03-10 | MR_ITS ---
EXAMINATION: MR FOOT WITHOUT AND WITH CONTRAST, LEFT CLINICAL INFORMATION: Dorsal left foot pain across the metatarsals and forefoot. Evaluate for synovitis, tenosynovitis. COMPARISON: Most recent left foot radiographs dated 05/08/2019. TECHNIQUE: Multisequence MR imaging of the left foot was obtained before and after the administration of 10 mL Gadavist IV contrast on a high-field strength scanner. FINDINGS: BONE: Articular cartilage thinning with areas of full-thickness loss and subchondral cystic change at the second tarsometatarsal joint as well as to a lesser degree at the third tarsometatarsal joint. There is adjacent edema within the proximal diaphyses, which may be degenerative or represent stress reactions. No associated fracture line. Mild articular cartilage thinning with small marginal osteophytes at the first metatarsophalangeal joint. MUSCLES/TENDONS: The visualized flexor and extensor tendons are intact. Minimal edema within the intrinsic musculature of the foot without a measurable defect. LIGAMENTS: Intact Lisfranc ligament. The plantar plates are intact. SOFT TISSUES: Small second and third tarsometatarsal joint effusions with mild adjacent soft tissue edema and postcontrast enhancement. Dorsal subcutaneous edema without organized fluid collection or abscess formation. MR/MR foot LT wo/w con IMPRESSION: 1. 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 Small joint effusions with mild soft tissue edema and postcontrast enhancement. Findings may be degenerative or represent a superimposed inflammatory arthropathy. 2. Mild edema within the proximal diaphysis of the second and third metatarsals which could be related to the adjacent arthropathy or indicate mild stress reactions. No associated fracture line. 3. No acute tendon or ligamentous injury. 4. Dorsal subcutaneous edema.
== END 2021-03-10 10:29 | disposition home or self-care (01) ==
LOC: HO.MRI 10:28
PROVIDERS: Visit Provider Internal Medicine
DX: M79.672 Pain in left foot (principal)
CPT/HCPCS: 73720; A9585

== ENCOUNTER 2021-04-05 07:35 | Outpatient (REF) | payer OTHER, SELFPAY ==
[2021-04-05 08:30] LABS: Anion Gap 9 (12-20); Blood Urea Nitrogen 18 mg/dL (9-16); Calcium 9.4 mg/dL (8.4-10.2); Carbon Dioxide 31 mmol/L (22-29); Chloride 106 mmol/L (96-108); Estimated Glomerular Filt Rate > 60; Glucose Random 110 mg/dL (60-115); Potassium 4.6 mmol/L (3.3-5.1); Sodium 141 mmol/L (135-145)
[2021-04-05 08:50] LABS: Vitamin D 25-OH Total 31.5 ng/mL (>30)
[2021-04-06 20:37] LABS: Adrenocorticotropic Hormone 16 pg/mL (6-50)
== END 2021-04-05 07:36 | disposition home or self-care (01) ==
LOC: HO.LAB 07:35
PROVIDERS: Internal Medicine Endocrinology, Diabetes & Metabolism; PCP Nurse Practitioner Family; Visit Provider Internal Medicine
DX: E24.2 Drug-induced Cushing's syndrome (principal); E27.3 Drug-induced adrenocortical insufficiency; T38.0X5A Adverse effect of glucocorticoids and synthetic analogues, initial encounter; M85.80 Other specified disorders of bone density and structure, unspecified site
CPT/HCPCS: 36415; 80048; 82024; 82040; 82306; 82533

== ENCOUNTER → 2021-04-14 11:07 | Outpatient (BNVA) | payer OTHER, SELFPAY | PROVIDERS: PCP Nurse Practitioner Family; Visit Provider Internal Medicine | DX: E24.2 Drug-induced Cushing's syndrome (principal); E55.9 Vitamin D deficiency, unspecified; E27.3 Drug-induced adrenocortical insufficiency; T38.0X5D Adverse effect of glucocorticoids and synthetic analogues, subsequent encounter | CPT/HCPCS: 99212 ==

== ENCOUNTER → 2021-04-28 09:47 | Outpatient (BNVA) | payer OTHER, SELFPAY | PROVIDERS: PCP Nurse Practitioner Family; Visit Provider Nurse Practitioner Family | DX: M96.1 Postlaminectomy syndrome, not elsewhere classified (principal); E11.40 Type 2 diabetes mellitus with diabetic neuropathy, unspecified; M13.80 Other specified arthritis, unspecified site; M35.3 Polymyalgia rheumatica; M47.26 Other spondylosis with radiculopathy, lumbar region | CPT/HCPCS: 99202 ==

== ENCOUNTER → 2021-05-12 09:48 | Outpatient (BNVA) | payer OTHER, SELFPAY | PROVIDERS: PCP Nurse Practitioner Family; Visit Provider Nurse Practitioner Family | DX: M96.1 Postlaminectomy syndrome, not elsewhere classified (principal); M35.3 Polymyalgia rheumatica; M47.26 Other spondylosis with radiculopathy, lumbar region; I25.10 Atherosclerotic heart disease of native coronary artery without angina pectoris; E11.40 Type 2 diabetes mellitus with diabetic neuropathy, unspecified; I73.9 Peripheral vascular disease, unspecified; E66.01 Morbid (severe) obesity due to excess calories; Z79.891 Long term (current) use of opiate analgesic; Z68.41 Body mass index [BMI] 40.0-44.9, adult | CPT/HCPCS: 99212 ==

== ENCOUNTER → 2021-06-09 12:57 | Outpatient (BNVA) | payer OTHER, SELFPAY | PROVIDERS: PCP Nurse Practitioner Family; Visit Provider Nurse Practitioner Family | DX: Z51.81 Encounter for therapeutic drug level monitoring (principal); M79.672 Pain in left foot; M47.26 Other spondylosis with radiculopathy, lumbar region; I73.9 Peripheral vascular disease, unspecified; M35.3 Polymyalgia rheumatica; M96.1 Postlaminectomy syndrome, not elsewhere classified; M06.00 Rheumatoid arthritis without rheumatoid factor, unspecified site; Z79.891 Long term (current) use of opiate analgesic | CPT/HCPCS: 99212 ==

== ENCOUNTER → 2021-06-13 08:43 | Outpatient (BNVA) | payer OTHER, SELFPAY | PROVIDERS: PCP Nurse Practitioner Family; Visit Provider Surgery Vascular Surgery | DX: I73.9 Peripheral vascular disease, unspecified (principal) | CPT/HCPCS: 99202 ==

== ENCOUNTER 2021-06-30 13:46 | Outpatient (REF) | payer OTHER, SELFPAY ==
--- NOTE | ~2021-06-30 | US_ITS ---
EXAMINATION: NONINVASIVE ASSESSMENT OF THE ARTERIES OF BOTH LOWER EXTREMITIES INCLUDING PVR EXAM AND BILATERAL LOWER EXTREMITY DUPLEX CLINICAL INFORMATION: Peripheral vascular disease, unspecified COMPARISON: 02/12/2014 TECHNIQUE: Ankle pulse volume recordings, ankle pressure measurements and ankle brachial indices were obtained of the lower extremity arterial system bilaterally in addition to duplex Doppler techniques with wave form analysis and measurement of velocities in the common femoral, profunda femoral, superficial femoral, popliteal, tibial and peroneal arteries. The study was performed only at rest. FINDINGS: RIGHT LEG 1. Right Ankle-Brachial Index: 1.14 (higher of the DP/PT) >0.97-1.25 = normal - no significant arterial disease 0.75-0.96 = mild peripheral arterial disease 0.5-0.74 = moderate peripheral arterial disease <0.50 = severe peripheral arterial disease <0.30 = critical arterial disease 2. Segmental Pressures (mmHg): Brachial: 167 Ankle: PT 200, DP 200 3. PVR Waveforms: Ankle: Abnormal, low amplitude, no dicrotic notch 4. Direct Duplex: Common femoral artery: There is plaque within the common femoral artery. At/just proximal to the plaque. Systolic velocity is 154 cm/s and flow is multiphasic. Just beyond the region of plaque peak systolic velocity is 179 cm/s with subtle, though preserved diastolic flow reversal Profunda femoris artery: 259 cm/s, Multiphasic Superficial femoral artery (proximal): 225 cm/s, monophasic Superficial femoral artery (mid): There is occlusion of the mid and distal portion of the superficial femoral artery. Several collateral vessels are visualized. Proximal Popliteal artery: 54.5 cm/s, monophasic tardus parvus Distal popliteal artery: 60.4 cm/s, monophasic Distal posterior tibial artery: 46 cm/s, monophasic Peroneal artery: 51.9 cm/s, monophasic LEFT LE. Left Ankle-Brachial Index: 1.14 (higher of the DP/PT) >0.97-1.25 = normal - no significant arterial disease 0.75-0.96 = mild peripheral arterial disease 0.5-0.74 = moderate peripheral arterial disease <0.50 = severe peripheral arterial disease <0.30 = critical arterial disease 2. Segmental Pressures: Brachial: 176 Ankle: PT 200, DP 50 3. PVR Waveforms: Ankle: Abnormal, low ankle. Comment of dicrotic notch 4. Direct Duplex: Common femoral artery: 60.9 cm/s, monophasic Profunda femoris artery: 55 cm/s, monophasic Superficial femoral artery (proximal): 96.7 cm/s, monophasic Superficial femoral artery (mid): Occluded Superficial femoral artery (distal): 34.3 cm/s, monophasic Proximal Popliteal artery: 28.3 cm/s, monophasic Distal popliteal artery: 42.6 cm/s, monophasic Distal posterior tibial artery: 38.6 cm/s, monophasic Peroneal artery: 53.4 cm/s, monophasic US/US LAUREN complete IMPRESSION: ABIs are unreliable secondary to calcified, noncompressible vessels. Nevertheless, the right LAUREN is 1.14 and the left is 1.14. On the right there is monophasic flow within the proximal SFA suggesting disease at the level of the common femoral and there is occlusion at the mid and distal SFA with restorationism of flow distally via collaterals. The runoff vessels have monophasic flow. On the left there is monophasic flow throughout suggesting inflow disease at the iliacs. There is occlusion at the midportion of the SFA with restorationism of flow distally.
--- NOTE | ~2021-06-30 | US_ITS ---
EXAMINATION: NONINVASIVE ASSESSMENT OF THE ARTERIES OF BOTH LOWER EXTREMITIES INCLUDING PVR EXAM AND BILATERAL LOWER EXTREMITY DUPLEX CLINICAL INFORMATION: Peripheral vascular disease, unspecified COMPARISON: 02/12/2014 TECHNIQUE: Ankle pulse volume recordings, ankle pressure measurements and ankle brachial indices were obtained of the lower extremity arterial system bilaterally in addition to duplex Doppler techniques with wave form analysis and measurement of velocities in the common femoral, profunda femoral, superficial femoral, popliteal, tibial and peroneal arteries. The study was performed only at rest. FINDINGS: RIGHT LEG 1. Right Ankle-Brachial Index: 1.14 (higher of the DP/PT) >0.97-1.25 = normal - no significant arterial disease 0.75-0.96 = mild peripheral arterial disease 0.5-0.74 = moderate peripheral arterial disease <0.50 = severe peripheral arterial disease <0.30 = critical arterial disease 2. Segmental Pressures (mmHg): Brachial: 167 Ankle: PT 200, DP 200 3. PVR Waveforms: Ankle: Abnormal, low amplitude, no dicrotic notch 4. Direct Duplex: Common femoral artery: There is plaque within the common femoral artery. At/just proximal to the plaque. Systolic velocity is 154 cm/s and flow is multiphasic. Just beyond the region of plaque peak systolic velocity is 179 cm/s with subtle, though preserved diastolic flow reversal Profunda femoris artery: 259 cm/s, Multiphasic Superficial femoral artery (proximal): 225 cm/s, monophasic Superficial femoral artery (mid): There is occlusion of the mid and distal portion of the superficial femoral artery. Several collateral vessels are visualized. Proximal Popliteal artery: 54.5 cm/s, monophasic tardus parvus Distal popliteal artery: 60.4 cm/s, monophasic Distal posterior tibial artery: 46 cm/s, monophasic Peroneal artery: 51.9 cm/s, monophasic LEFT LE. Left Ankle-Brachial Index: 1.14 (higher of the DP/PT) >0.97-1.25 = normal - no significant arterial disease 0.75-0.96 = mild peripheral arterial disease 0.5-0.74 = moderate peripheral arterial disease <0.50 = severe peripheral arterial disease <0.30 = critical arterial disease 2. Segmental Pressures: Brachial: 176 Ankle: PT 200, DP 50 3. PVR Waveforms: Ankle: Abnormal, low ankle. Comment of dicrotic notch 4. Direct Duplex: Common femoral artery: 60.9 cm/s, monophasic Profunda femoris artery: 55 cm/s, monophasic Superficial femoral artery (proximal): 96.7 cm/s, monophasic Superficial femoral artery (mid): Occluded Superficial femoral artery (distal): 34.3 cm/s, monophasic Proximal Popliteal artery: 28.3 cm/s, monophasic Distal popliteal artery: 42.6 cm/s, monophasic Distal posterior tibial artery: 38.6 cm/s, monophasic Peroneal artery: 53.4 cm/s, monophasic US/US arterial duplex LE BI IMPRESSION: ABIs are unreliable secondary to calcified, noncompressible vessels. Nevertheless, the right LAUREN is 1.14 and the left is 1.14. On the right there is monophasic flow within the proximal SFA suggesting disease at the level of the common femoral and there is occlusion at the mid and distal SFA with methodist of flow distally via collaterals. The runoff vessels have monophasic flow. On the left there is monophasic flow throughout suggesting inflow disease at the iliacs. There is occlusion at the midportion of the SFA with methodist of flow distally.
== END 2021-06-30 13:47 | disposition home or self-care (01) ==
LOC: HO.US 13:46
PROVIDERS: PCP Nurse Practitioner Family; Visit Provider Surgery Vascular Surgery
DX: I73.9 Peripheral vascular disease, unspecified (principal)
CPT/HCPCS: 93923; 93925

== ENCOUNTER → 2021-07-05 13:57 | Outpatient (BNVA) | payer OTHER, SELFPAY | PROVIDERS: PCP Nurse Practitioner Family; Visit Provider Surgery Vascular Surgery | DX: I73.9 Peripheral vascular disease, unspecified (principal) | CPT/HCPCS: 99212 ==

== ENCOUNTER 2021-07-06 05:52 | Outpatient (REF) | payer OTHER, SELFPAY | END 2021-07-06 05:53 | disposition home or self-care (01) | LOC: HO.RADIR 05:52 | PROVIDERS: Visit Provider Internal Medicine | DX: M79.672 Pain in left foot (principal) | CPT/HCPCS: 20600; J1020 ==

== ENCOUNTER → 2021-07-07 12:53 | Outpatient (BNVA) | payer OTHER, SELFPAY | PROVIDERS: PCP Nurse Practitioner Family; Visit Provider Nurse Practitioner Family | DX: Z51.81 Encounter for therapeutic drug level monitoring (principal); F11.20 Opioid dependence, uncomplicated | CPT/HCPCS: 99211 ==

== ENCOUNTER 2021-07-13 06:06 | Day surgery (SDC) | payer OTHER, SELFPAY ==
[2021-07-13] VITALS (10 sets, daily range): BP systolic 107–156; BP diastolic 44–81; PULSE 55–66; RESP 11–18; TEMP 36.4–36.5; O2SAT 95–98; BMI 44.3
[2021-07-13] MEDS: 0.9 % Sodium Chloride 1,000 ML 100 ML IVCONT (06:54)
[2021-07-13 07:07] LABS: MANUAL DIFF FLAG NO
[2021-07-13 07:09] LABS: Basophils Percent Auto 0.4 % (0-2); Eosinophils Absolute Auto 0.2 X10*3/uL (0.0-0.4); Eosinophils Percent Auto 4.6 % (0-4); Hematocrit 39.1 % (42.0-52.0); Hemoglobin 13.3 g/dl (14.0-18.0); Imm Gran Abs Auto 0.03 X10*3/uL (0.00-0.03); Imm Gran Pct Auto 0.7 % (0.0-0.4); Lymphocytes Absolute Auto 1.5 X10*3/uL (1.2-4.9); Lymphocytes Percent Auto 32.5 % (20-40); Mean Corpuscular Hemoglobin 32.7 pg (27.0-33.0); Mean Corpuscular Volume 96.1 fL (80.0-98.0); Mean Platelet Volume 9.1 fL (9.4-12.4); Monocytes Absolute Auto 0.6 X10*3/uL (0.1-1.2); Monocytes Percent Auto 13.3 % (2-11); Neutrophils Absolute Auto 2.2 x10*3/uL (2.0-8.3); Neutrophils Percent Auto 48.5 % (45-73); Platelet Count 164 X10*3/uL (160-400); Red Blood Count 4.07 X10*6/uL (4.60-5.80); Red Cell Distribution Width 13.3 % (11.0-16.0); White Blood Count 4.5 X10*3/uL (4.8-10.8)
[2021-07-13 07:25] LABS: Anion Gap 11 (12-20); Blood Urea Nitrogen 21 mg/dL (9-16); Calcium 9.4 mg/dL (8.4-10.2); Carbon Dioxide 26 mmol/L (22-29); Chloride 106 mmol/L (96-108); Creatinine Clr Calc Pharmacy 106.4; Estimated Glomerular Filt Rate > 60; Glucose Random 131 mg/dL (60-115); Potassium 4.2 mmol/L (3.3-5.1); Sodium 139 mmol/L (135-145)
--- NOTE | 2021-07-13 09:26 | W.PM.OPN ---
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 Ultrasound-guided right common femoral access 2. Aortogram with bilateral lower extremity runoff Surgeon:Chiki Cortes M.D., FACS, RPVI Microfiche Camera Operator:None Anesthesia: Local with moderate conscious sedation. Total intraservice moderate sedation time was 53 minutes. I monitored the patient's level of consciousness and physiologic status continuously throughout the procedure. Specimens:none Drains:none Estimated blood loss: Less than 10 ml Implant: None Indications: Complex 66 year old gentleman with a history activity limiting claudication. It has progressed for some some time and has been causing him pain and discomfort. He has had noninvasive testing which was concerning for SFA disease. He now presents to us for endovascular intervention. The patient has signed the informed consent after reviewing risks, complications, benefits, and alternatives previously discussed with the patient. The patient was given the opportunity to ask any additional questions or voice any concerns. All questions were answered to the patient's satisfaction. Procedure in detail: Patient was brought to the angiography suite prior to which a time-out was called for patient identification and site verification. Bilateral groins were prepped and draped in the standard surgical fashion. Under ultrasound guidance right common femoral was punctured with micro puncture needle and wire. Subsequently a precision 5 Swedish sheath was then placed. Bentson wire was advanced to the level of the aorta. 5 Swedish Flush catheter was brought up and parked at the level of the renal arteries. Aortogram was then undertaken. Catheter was brought down to the level of the iliac bifurcation. Iliacs were subsequently imaged. Catheter was then brought in up and over to the left side SFA. Runoff study was then undertaken. There was an occlusion noted into the mid to distal SFA. We tried to traverse this with an 035 glidewire Advantage. We subsequently downsized to an 014 advantage wire. We tried to follow with a now be cross and trail Blazer catheter. We were on able to traverse this lesion. Cath catheter and wire were removed. Through the 5 Swedish sheath we shot down the right lower extremity which was the ipsilateral side. At this point no intervention was possible. Catheter wire sheath were removed. 10 minutes of direct pressure was held. Patient tolerated the procedure well. Returned to recovery with stable vitals Interpretation of films: 1. Ultrasound demonstrates appropriate femoral puncture. Image of which was saved. 2. Aortogram demonstrates appropriate caliber aorta. Minimal disease. Appropriate take-off of the renals. 3. Iliac images demonstrate some disease at the origin. Disease at the left iliac origin as well. 4. Left Leg Common femoral artery: No significant disease Profundus Femoris: No significant disease Superficial femoral artery: Disease noted at the origin of the SFA and extremely calcific disease total occlusion at Misael's canal reconstitution at the above knee popliteal Popliteal artery (p1,p2,p3): Patent with no significant disease Anterior tibial artery: Patent Peroneal artery: Patent Posterior tibial artery: Patent Dorsalis pedis/plantar arch: Appears to be complete was difficult to visualize 5. Right Leg Common femoral artery: No significant disease Profundus Femoris: No significant disease Superficial femoral artery: Near occlusion at Misael's canal calcified Popliteal artery (p1,p2,p3): Patent with no significant disease Anterior tibial artery: Patent Peroneal artery: Patent Posterior tibial artery: Patent Dorsalis pedis/plantar arch: Near complete arch Conclusion: 1. Successful diagnostic angiogram with bilateral runoff 2. Anticoagulation status: No change This note is constructed using voice recognition software. While every effort has been made to ensure accuracy, station installation supervisor errors may have been included. Thank you for allowing me to participate in the care of your patient. Yours sincerely, Chiki Cortes MD, FACS, R.P.V.I.
== END 2021-07-13 13:53 | disposition home or self-care (01) ==
PROVIDERS: PCP Nurse Practitioner Family; Visit Provider Surgery Vascular Surgery
DX: E11.51 Type 2 diabetes mellitus with diabetic peripheral angiopathy without gangrene (principal); E11.40 Type 2 diabetes mellitus with diabetic neuropathy, unspecified; I70.213 Atherosclerosis of native arteries of extremities with intermittent claudication, bilateral legs; E27.3 Drug-induced adrenocortical insufficiency; T38.0X5A Adverse effect of glucocorticoids and synthetic analogues, initial encounter; Y92.9 Unspecified place or not applicable; E66.01 Morbid (severe) obesity due to excess calories; Z68.41 Body mass index [BMI] 40.0-44.9, adult; Z79.84 Long term (current) use of oral hypoglycemic drugs; Z79.52 Long term (current) use of systemic steroids; Z88.8 Allergy status to other drugs, medicaments and biological substances; Z87.891 Personal history of nicotine dependence
CPT/HCPCS: 36247; 36415; 75630; 76937; 80048; 85025; 99152; 99153; C1769; C1887; J2250; J3010; Q9967

== ENCOUNTER 2021-07-19 07:26 | Outpatient (REF) | payer OTHER, SELFPAY ==
[2021-07-19 08:01] LABS: Basophils Percent Auto 0.5 % (0-2); Eosinophils Absolute Auto 0.2 X10*3/uL (0.0-0.4); Eosinophils Percent Auto 4.6 % (0-4); Hematocrit 39.9 % (42.0-52.0); Hemoglobin 13.4 g/dl (14.0-18.0); Imm Gran Abs Auto 0.02 X10*3/uL (0.00-0.03); Imm Gran Pct Auto 0.5 % (0.0-0.4); Lymphocytes Absolute Auto 1.3 X10*3/uL (1.2-4.9); Lymphocytes Percent Auto 30.3 % (20-40); MANUAL DIFF FLAG SCAN; Mean Corpuscular HGB Conc 33.6 g/dl (31.0-36.0); Mean Corpuscular Hemoglobin 32.2 pg (27.0-33.0); Mean Corpuscular Volume 95.9 fL (80.0-98.0); Mean Platelet Volume 9.1 fL (9.4-12.4); Monocytes Absolute Auto 0.9 X10*3/uL (0.1-1.2); Monocytes Percent Auto 20.4 % (2-11); Neutrophils Absolute Auto 1.9 x10*3/uL (2.0-8.3); Neutrophils Percent Auto 43.7 % (45-73); Platelet Count 161 X10*3/uL (160-400); Red Blood Count 4.16 X10*6/uL (4.60-5.80); Red Cell Distribution Width 13.4 % (11.0-16.0); SCAN SMEAR FLAG 1; White Blood Count 4.3 X10*3/uL (4.8-10.8)
[2021-07-19 08:21] LABS: Alanine Aminotransferase 40 U/L (0-40); Alkaline Phosphatase 58 U/L (39-117); Anion Gap 10 (12-20); Aspartate Amino Transferase 26 U/L (5-37); Blood Urea Nitrogen 16 mg/dL (9-16); Calcium 9.5 mg/dL (8.4-10.2); Carbon Dioxide 26 mmol/L (22-29); Chloride 108 mmol/L (96-108); Cholesterol 163 mg/dL; Estimated Glomerular Filt Rate > 60; Glucose Fasting 115 mg/dL (60-99); HDL Cholesterol 48 mg/dL; LDL Cholesterol Calculated 95 mg/dl; Potassium 4.4 mmol/L (3.3-5.1); Sodium 140 mmol/L (135-145); Total Protein 6.3 g/dL (6.5-8.0); Triglycerides 101 mg/dL
[2021-07-19 08:22] LABS: Estimated Average Glucose 128 mg/dL; Hemoglobin A1c % 6.1 %; SLIDE REVIEW VERIFIED
[2021-07-19 08:41] LABS: Vitamin D 25-OH Total 36.3 ng/mL (>30)
[2021-07-19 08:42] LABS: Prostate Specific Antigen Scr 1.27 ng/mL (<0.05-4.0); TSH reflex Free T4 1.55 uIU/mL (0.32-4.0)
[2021-07-19 08:54] LABS: Appearance Urine CLEAR; Color Urine YELLOW; Glucose Urine UA NEG (NEG); Leukocyte Esterase Urine NEG (NEG); Nitrite Urine NEG (NEG); PH 5.5 (5.0-8.0); Specific Gravity - Urine 1.025 (1.005-1.025); Urine Blood NEG (NEG); Urine Ketones NEG (NEG); Urine Protein NEG (NEG-TRACE)
[2021-07-19 09:15] LABS: Cortisol Random 21.9 ug/dL
[2021-07-20 19:35] LABS: Adrenocorticotropic Hormone 9 pg/mL (6-50)
== END 2021-07-19 07:27 | disposition home or self-care (01) ==
LOC: HO.LAB 07:26
PROVIDERS: Absent Provider Internal Medicine; PCP Nurse Practitioner Family; Visit Provider Nurse Practitioner Family
DX: Z00.00 Encounter for general adult medical examination without abnormal findings (principal); Z12.5 Encounter for screening for malignant neoplasm of prostate; E24.2 Drug-induced Cushing's syndrome; E55.9 Vitamin D deficiency, unspecified; E11.8 Type 2 diabetes mellitus with unspecified complications
CPT/HCPCS: 36415; 80053; 80061; 81003; 82024; 82306; 82533; 83036; 84153; 84443; 85025

== ENCOUNTER → 2021-07-27 09:43 | Outpatient (BNVA) | payer OTHER, SELFPAY | PROVIDERS: PCP Nurse Practitioner Family; Visit Provider Internal Medicine | DX: E24.2 Drug-induced Cushing's syndrome (principal); E55.9 Vitamin D deficiency, unspecified; E27.3 Drug-induced adrenocortical insufficiency; T38.0X5D Adverse effect of glucocorticoids and synthetic analogues, subsequent encounter | CPT/HCPCS: Q3014 ==

== ENCOUNTER → 2021-08-11 08:54 | Outpatient (BNVA) | payer OTHER, SELFPAY | PROVIDERS: PCP Nurse Practitioner Family; Visit Provider Nurse Practitioner Family | DX: M47.26 Other spondylosis with radiculopathy, lumbar region (principal); M35.3 Polymyalgia rheumatica; M96.1 Postlaminectomy syndrome, not elsewhere classified; M79.672 Pain in left foot; I73.9 Peripheral vascular disease, unspecified; E11.40 Type 2 diabetes mellitus with diabetic neuropathy, unspecified; E66.01 Morbid (severe) obesity due to excess calories; Z79.891 Long term (current) use of opiate analgesic; Z68.41 Body mass index [BMI] 40.0-44.9, adult | CPT/HCPCS: 99212 ==

== ENCOUNTER → 2021-09-01 08:48 | Outpatient (BNVA) | payer OTHER, SELFPAY | PROVIDERS: PCP Nurse Practitioner Family; Visit Provider Nurse Practitioner Family | DX: E11.40 Type 2 diabetes mellitus with diabetic neuropathy, unspecified (principal); M35.3 Polymyalgia rheumatica; M96.1 Postlaminectomy syndrome, not elsewhere classified; M47.26 Other spondylosis with radiculopathy, lumbar region; M06.00 Rheumatoid arthritis without rheumatoid factor, unspecified site; I73.9 Peripheral vascular disease, unspecified; E66.01 Morbid (severe) obesity due to excess calories; Z68.41 Body mass index [BMI] 40.0-44.9, adult; Z79.891 Long term (current) use of opiate analgesic; Z79.899 Other long term (current) drug therapy | CPT/HCPCS: 99212 ==

== ENCOUNTER 2021-09-20 07:08 | Outpatient (REF) | payer OTHER, SELFPAY ==
[2021-09-20 07:54] LABS: Anion Gap 11 (12-20); Blood Urea Nitrogen 19 mg/dL (9-16); Calcium 9.3 mg/dL (8.4-10.2); Carbon Dioxide 27 mmol/L (22-29); Chloride 106 mmol/L (96-108); Estimated Glomerular Filt Rate > 60; Glucose Random 118 mg/dL (60-115); Potassium 4.5 mmol/L (3.3-5.1); Sodium 139 mmol/L (135-145)
[2021-09-20 13:17] LABS: Cortisol Random 8.2 ug/dL
[2021-09-21 19:21] LABS: Adrenocorticotropic Hormone 21 pg/mL (6-50)
== END 2021-09-20 07:09 | disposition home or self-care (01) ==
LOC: HO.LAB 07:08
PROVIDERS: PCP Nurse Practitioner Family; Visit Provider Internal Medicine
DX: E24.2 Drug-induced Cushing's syndrome (principal)
CPT/HCPCS: 36415; 80048; 82024; 82533

== ENCOUNTER 2021-09-21 12:22 | Outpatient (REF) | payer OTHER, SELFPAY ==
[2021-09-21 13:37] LABS: MANUAL DIFF FLAG NO
[2021-09-21 13:40] LABS: Basophils Percent Auto 0.7 % (0-2); Eosinophils Absolute Auto 0.2 X10*3/uL (0.0-0.4); Eosinophils Percent Auto 5.6 % (0-4); Hematocrit 38.5 % (42.0-52.0); Hemoglobin 13.1 g/dl (14.0-18.0); Imm Gran Abs Auto 0.02 X10*3/uL (0.00-0.03); Imm Gran Pct Auto 0.5 % (0.0-0.4); Lymphocytes Absolute Auto 1.4 X10*3/uL (1.2-4.9); Lymphocytes Percent Auto 31.3 % (20-40); Mean Corpuscular Hemoglobin 33.3 pg (27.0-33.0); Mean Platelet Volume 9.3 fL (9.4-12.4); Monocytes Absolute Auto 0.6 X10*3/uL (0.1-1.2); Monocytes Percent Auto 13.4 % (2-11); Neutrophils Absolute Auto 2.1 x10*3/uL (2.0-8.3); Neutrophils Percent Auto 48.5 % (45-73); Platelet Count 197 X10*3/uL (160-400); Red Blood Count 3.93 X10*6/uL (4.60-5.80); Red Cell Distribution Width 14.8 % (11.0-16.0); White Blood Count 4.3 X10*3/uL (4.8-10.8)
[2021-09-21 13:57] LABS: Alanine Aminotransferase 30 U/L (0-40); Aspartate Amino Transferase 22 U/L (5-37); C Reactive Protein 0.22 mg/dL (< or = 0.50); Estimated Glomerular Filt Rate > 60
[2021-09-21 14:13] LABS: Erythrocyte Sedimentation Rate 4 MM/HR (0-15)
== END 2021-09-21 12:23 | disposition home or self-care (01) ==
LOC: HO.10HDL 12:22
PROVIDERS: Visit Provider Internal Medicine Rheumatology
DX: M70.61 Trochanteric bursitis, right hip (principal); M70.62 Trochanteric bursitis, left hip; M19.041 Primary osteoarthritis, right hand; M19.042 Primary osteoarthritis, left hand; M06.00 Rheumatoid arthritis without rheumatoid factor, unspecified site; M47.26 Other spondylosis with radiculopathy, lumbar region; E27.40 Unspecified adrenocortical insufficiency; E11.40 Type 2 diabetes mellitus with diabetic neuropathy, unspecified; Z79.899 Other long term (current) drug therapy
CPT/HCPCS: 20610; 36415; 82565; 84450; 84460; 85025; 85652; 86140; 99212

== ENCOUNTER → 2021-09-29 08:58 | Outpatient (BNVA) | payer OTHER, SELFPAY | PROVIDERS: PCP Nurse Practitioner Family; Visit Provider Nurse Practitioner Family | DX: M96.1 Postlaminectomy syndrome, not elsewhere classified (principal); E11.40 Type 2 diabetes mellitus with diabetic neuropathy, unspecified; M35.3 Polymyalgia rheumatica; M47.26 Other spondylosis with radiculopathy, lumbar region; E66.01 Morbid (severe) obesity due to excess calories; Z68.41 Body mass index [BMI] 40.0-44.9, adult; Z79.891 Long term (current) use of opiate analgesic | CPT/HCPCS: 99212 ==

== ENCOUNTER → 2021-10-03 09:52 | Outpatient (BNVA) | payer OTHER, SELFPAY | PROVIDERS: PCP Nurse Practitioner Family; Visit Provider Internal Medicine | DX: E24.2 Drug-induced Cushing's syndrome (principal); T38.0X5A Adverse effect of glucocorticoids and synthetic analogues, initial encounter; E27.3 Drug-induced adrenocortical insufficiency; E55.9 Vitamin D deficiency, unspecified | CPT/HCPCS: 99212 ==

== ENCOUNTER → 2021-10-27 09:24 | Outpatient (BNVA) | payer OTHER, SELFPAY | PROVIDERS: PCP Nurse Practitioner Family; Visit Provider Nurse Practitioner Family | DX: M35.3 Polymyalgia rheumatica (principal); M96.1 Postlaminectomy syndrome, not elsewhere classified; M47.26 Other spondylosis with radiculopathy, lumbar region; E11.40 Type 2 diabetes mellitus with diabetic neuropathy, unspecified; E66.01 Morbid (severe) obesity due to excess calories; Z68.41 Body mass index [BMI] 40.0-44.9, adult; Z79.891 Long term (current) use of opiate analgesic | CPT/HCPCS: 99212 ==

== ENCOUNTER 2021-11-03 07:36 | Outpatient (REF) | payer OTHER, SELFPAY ==
[2021-11-03 07:48] LABS: MANUAL DIFF FLAG NO
[2021-11-03 08:11] LABS: Basophils Percent Auto 0.8 % (0-2); Eosinophils Absolute Auto 0.4 X10*3/uL (0.0-0.4); Eosinophils Percent Auto 6.6 % (0-4); Hematocrit 40.9 % (42.0-52.0); Hemoglobin 14.3 g/dl (14.0-18.0); Imm Gran Abs Auto 0.05 X10*3/uL (0.00-0.03); Imm Gran Pct Auto 0.9 % (0.0-0.4); Lymphocytes Absolute Auto 1.7 X10*3/uL (1.2-4.9); Lymphocytes Percent Auto 31.3 % (20-40); Monocytes Absolute Auto 0.8 X10*3/uL (0.1-1.2); Monocytes Percent Auto 14.1 % (2-11); Neutrophils Absolute Auto 2.5 x10*3/uL (2.0-8.3); Neutrophils Percent Auto 46.3 % (45-73); Platelet Count 160 X10*3/uL (160-400); Red Blood Count 4.09 X10*6/uL (4.60-5.80); Red Cell Distribution Width 14.4 % (11.0-16.0); White Blood Count 5.3 X10*3/uL (4.8-10.8)
[2021-11-03 08:35] LABS: Alanine Aminotransferase 37 U/L (0-40); Anion Gap 14 (12-20); Aspartate Amino Transferase 18 U/L (5-37); Blood Urea Nitrogen 22 mg/dL (9-16); C Reactive Protein 0.26 mg/dL (< or = 0.50); Calcium 9.2 mg/dL (8.4-10.2); Carbon Dioxide 24 mmol/L (22-29); Chloride 106 mmol/L (96-108); Estimated Glomerular Filt Rate > 60; Glucose Random 115 mg/dL (60-115); Potassium 4.3 mmol/L (3.3-5.1); Sodium 140 mmol/L (135-145)
[2021-11-03 08:49] LABS: Erythrocyte Sedimentation Rate 2 MM/HR (0-15)
[2021-11-03 09:58] LABS: Cortisol Random 2.7 ug/dL
[2021-11-04 21:12] LABS: Adrenocorticotropic Hormone 6 pg/mL (6-50)
== END 2021-11-03 07:37 | disposition home or self-care (01) ==
LOC: HO.LAB 07:36
PROVIDERS: Internal Medicine Rheumatology; PCP Nurse Practitioner Family; Visit Provider Internal Medicine
DX: E24.2 Drug-induced Cushing's syndrome (principal); M06.00 Rheumatoid arthritis without rheumatoid factor, unspecified site; Z79.899 Other long term (current) drug therapy
CPT/HCPCS: 36415; 80048; 82024; 82533; 84450; 84460; 85025; 85652; 86140

== ENCOUNTER → 2021-11-14 08:50 | Outpatient (BNVA) | payer OTHER, SELFPAY | PROVIDERS: PCP Nurse Practitioner Family; Referring Provider Nurse Practitioner Family; Visit Provider Internal Medicine | DX: I25.10 Atherosclerotic heart disease of native coronary artery without angina pectoris (principal); E11.8 Type 2 diabetes mellitus with unspecified complications; E66.01 Morbid (severe) obesity due to excess calories; Z68.41 Body mass index [BMI] 40.0-44.9, adult | CPT/HCPCS: 93005; 99212 ==

== ENCOUNTER → 2021-11-23 09:20 | Outpatient (BNVA) | payer OTHER, SELFPAY | PROVIDERS: PCP Nurse Practitioner Family; Visit Provider Nurse Practitioner Family | DX: M06.00 Rheumatoid arthritis without rheumatoid factor, unspecified site (principal); M19.041 Primary osteoarthritis, right hand; M19.042 Primary osteoarthritis, left hand; E11.40 Type 2 diabetes mellitus with diabetic neuropathy, unspecified; Z79.899 Other long term (current) drug therapy | CPT/HCPCS: 99211; 99212 ==

== ENCOUNTER → 2021-12-06 08:52 | Outpatient (BNVA) | payer OTHER, SELFPAY | PROVIDERS: PCP Nurse Practitioner Family; Visit Provider Nurse Practitioner Family | DX: M96.1 Postlaminectomy syndrome, not elsewhere classified (principal); M35.3 Polymyalgia rheumatica; M47.26 Other spondylosis with radiculopathy, lumbar region; E11.40 Type 2 diabetes mellitus with diabetic neuropathy, unspecified; M79.671 Pain in right foot; M79.672 Pain in left foot | CPT/HCPCS: 99212; J7336 ==

== ENCOUNTER → 2021-12-27 09:56 | Outpatient (BNVA) | payer OTHER, SELFPAY | PROVIDERS: PCP Nurse Practitioner Family; Visit Provider Nurse Practitioner Family | DX: Z51.81 Encounter for therapeutic drug level monitoring (principal) | CPT/HCPCS: 99211 ==

== ENCOUNTER 2022-01-03 10:38 | Outpatient (REF) | payer OTHER, SELFPAY ==
[2022-01-03 14:13] LABS: MANUAL DIFF FLAG NO
[2022-01-03 14:20] LABS: Basophils Absolute Auto 0.1 X10*3/uL (0.0-0.2); Basophils Percent Auto 0.9 % (0-2); Eosinophils Absolute Auto 0.2 X10*3/uL (0.0-0.4); Hematocrit 39.7 % (42.0-52.0); Hemoglobin 13.5 g/dl (14.0-18.0); Imm Gran Abs Auto 0.02 X10*3/uL (0.00-0.03); Imm Gran Pct Auto 0.3 % (0.0-0.4); Lymphocytes Absolute Auto 1.6 X10*3/uL (1.2-4.9); Lymphocytes Percent Auto 27.2 % (20-40); Mean Corpuscular Hemoglobin 33.3 pg (27.0-33.0); Mean Platelet Volume 11.2 fL (9.4-12.4); Monocytes Absolute Auto 0.6 X10*3/uL (0.1-1.2); Neutrophils Absolute Auto 3.3 x10*3/uL (2.0-8.3); Neutrophils Percent Auto 57.6 % (45-73); Platelet Count 131 X10*3/uL (160-400); Red Blood Count 4.05 X10*6/uL (4.60-5.80); Red Cell Distribution Width 13.2 % (11.0-16.0); White Blood Count 5.7 X10*3/uL (4.8-10.8)
[2022-01-03 14:46] LABS: Alanine Aminotransferase 35 U/L (0-40); Aspartate Amino Transferase 22 U/L (5-37); C Reactive Protein 0.13 mg/dL (< or = 0.50)
[2022-01-03 14:52] LABS: TSH reflex Free T4 0.47 uIU/mL (0.32-4.0)
[2022-01-03 14:58] LABS: Erythrocyte Sedimentation Rate 2 MM/HR (0-15)
[2022-01-06 12:47] LABS: TS Negative Control Passed; TS Panel A 0; TS Panel B 2; TS Positive Control Passed; TSpotTB Negative (Negative)
== END 2022-01-03 10:39 | disposition home or self-care (01) ==
LOC: HO.10HDL 10:38
PROVIDERS: Visit Provider Internal Medicine Rheumatology
DX: Z11.1 Encounter for screening for respiratory tuberculosis (principal); E11.40 Type 2 diabetes mellitus with diabetic neuropathy, unspecified; M06.00 Rheumatoid arthritis without rheumatoid factor, unspecified site; R53.83 Other fatigue; Z79.899 Other long term (current) drug therapy
CPT/HCPCS: 36415; 84443; 84450; 84460; 85025; 85652; 86140; 86481; 99212

== ENCOUNTER 2022-01-19 13:09 | Outpatient (REF) | payer OTHER, SELFPAY ==
--- NOTE | 2022-01-19 09:00 | EMG_ITS ---
Right tibial and peroneal motor studies were performed. Right superficial peroneal and sural sensory studies were performed. Tibial H-reflex was obtained and paraspinal muscles were tested with a needle. IMPRESSION: Moderately severe axonal sensory motor peripheral neuropathy. MD RIYA Camarillo/MIKAYLA / [id number]
== END 2022-01-19 13:10 | disposition home or self-care (01) ==
LOC: HO.NEURO 13:09
PROVIDERS: PCP Nurse Practitioner Family; Visit Provider Nurse Practitioner Family
DX: E11.40 Type 2 diabetes mellitus with diabetic neuropathy, unspecified (principal)
CPT/HCPCS: 95886; 95909

== ENCOUNTER → 2022-01-31 14:38 | Outpatient (BNVA) | payer OTHER, SELFPAY | PROVIDERS: PCP Nurse Practitioner Family; Visit Provider Nurse Practitioner Family | DX: Z51.81 Encounter for therapeutic drug level monitoring (principal); F11.20 Opioid dependence, uncomplicated | CPT/HCPCS: 99211 ==

== ENCOUNTER → 2022-02-01 08:32 | Outpatient (BNVA) | payer OTHER, SELFPAY | PROVIDERS: PCP Nurse Practitioner Family; Visit Provider Internal Medicine Rheumatology | DX: M35.3 Polymyalgia rheumatica (principal); M96.1 Postlaminectomy syndrome, not elsewhere classified; M19.041 Primary osteoarthritis, right hand; M19.042 Primary osteoarthritis, left hand; E11.40 Type 2 diabetes mellitus with diabetic neuropathy, unspecified; Z79.899 Other long term (current) drug therapy | CPT/HCPCS: 99202 ==

== ENCOUNTER 2022-03-07 07:21 | Outpatient (REF) | payer OTHER, SELFPAY ==
[2022-03-07 07:34] LABS: MANUAL DIFF FLAG NO
[2022-03-07 07:52] LABS: Basophils Percent Auto 0.5 % (0-2); Eosinophils Absolute Auto 0.1 X10*3/uL (0.0-0.4); Hematocrit 43.6 % (42.0-52.0); Hemoglobin 14.6 g/dl (14.0-18.0); Imm Gran Abs Auto 0.05 X10*3/uL (0.00-0.03); Imm Gran Pct Auto 0.8 % (0.0-0.4); Lymphocytes Absolute Auto 1.9 X10*3/uL (1.2-4.9); Lymphocytes Percent Auto 28.3 % (20-40); Mean Corpuscular HGB Conc 33.5 g/dl (31.0-36.0); Mean Corpuscular Hemoglobin 33.3 pg (27.0-33.0); Mean Corpuscular Volume 99.5 fL (80.0-98.0); Mean Platelet Volume 9.4 fL (9.4-12.4); Monocytes Absolute Auto 0.7 X10*3/uL (0.1-1.2); Monocytes Percent Auto 10.1 % (2-11); Neutrophils Absolute Auto 3.9 x10*3/uL (2.0-8.3); Neutrophils Percent Auto 58.3 % (45-73); Platelet Count 167 X10*3/uL (160-400); Red Blood Count 4.38 X10*6/uL (4.60-5.80); Red Cell Distribution Width 13.2 % (11.0-16.0); White Blood Count 6.7 X10*3/uL (4.8-10.8)
[2022-03-07 08:18] LABS: Alanine Aminotransferase 32 U/L (0-40); Anion Gap 14 (12-20); Aspartate Amino Transferase 17 U/L (5-37); Blood Urea Nitrogen 19 mg/dL (9-16); C Reactive Protein 0.11 mg/dL (< or = 0.50); Calcium 9.5 mg/dL (8.4-10.2); Carbon Dioxide 27 mmol/L (22-29); Chloride 104 mmol/L (96-108); Estimated Glomerular Filt Rate > 60; Glucose Random 107 mg/dL (60-115); Potassium 4.8 mmol/L (3.3-5.1); Sodium 140 mmol/L (135-145)
[2022-03-07 08:37] LABS: Cortisol Random 3.9 ug/dL
[2022-03-07 08:38] LABS: Erythrocyte Sedimentation Rate 3 MM/HR (0-15)
[2022-03-08 21:43] LABS: Adrenocorticotropic Hormone 6 pg/mL (6-50)
== END 2022-03-07 07:22 | disposition home or self-care (01) ==
LOC: HO.LAB 07:21
PROVIDERS: Internal Medicine; Internal Medicine Rheumatology; PCP Nurse Practitioner Family; Visit Provider Nurse Practitioner Family
DX: E24.2 Drug-induced Cushing's syndrome (principal); M35.3 Polymyalgia rheumatica; Z79.899 Other long term (current) drug therapy
CPT/HCPCS: 36415; 80048; 82024; 82533; 84450; 84460; 85025; 85652; 86140

== ENCOUNTER → 2022-03-09 08:57 | Outpatient (BNVA) | payer OTHER, SELFPAY | PROVIDERS: PCP Nurse Practitioner Family; Visit Provider Nurse Practitioner Family | DX: E11.42 Type 2 diabetes mellitus with diabetic polyneuropathy (principal); M79.671 Pain in right foot; M79.672 Pain in left foot; M96.1 Postlaminectomy syndrome, not elsewhere classified; M35.3 Polymyalgia rheumatica; M47.26 Other spondylosis with radiculopathy, lumbar region; Z79.899 Other long term (current) drug therapy | CPT/HCPCS: 99212; J7336 ==

== ENCOUNTER → 2022-04-05 10:27 | Outpatient (BNVA) | payer OTHER, SELFPAY | PROVIDERS: PCP Nurse Practitioner Family; Visit Provider Nurse Practitioner Family | DX: Z13.89 Encounter for screening for other disorder (principal) ==

== ENCOUNTER → 2022-05-04 10:28 | Outpatient (BNVA) | payer OTHER, SELFPAY | PROVIDERS: PCP Nurse Practitioner Family; Visit Provider Nurse Practitioner Family | DX: Z51.81 Encounter for therapeutic drug level monitoring (principal); F11.20 Opioid dependence, uncomplicated; E11.42 Type 2 diabetes mellitus with diabetic polyneuropathy; E11.40 Type 2 diabetes mellitus with diabetic neuropathy, unspecified; E08.40 Diabetes mellitus due to underlying condition with diabetic neuropathy, unspecified; M79.671 Pain in right foot; M79.672 Pain in left foot; M35.3 Polymyalgia rheumatica; M96.1 Postlaminectomy syndrome, not elsewhere classified; Z79.891 Long term (current) use of opiate analgesic | CPT/HCPCS: 99212 ==

== ENCOUNTER → 2022-06-08 09:38 | Outpatient (BNVA) | payer OTHER, SELFPAY | PROVIDERS: PCP Nurse Practitioner Family; Visit Provider Nurse Practitioner Family | DX: E11.40 Type 2 diabetes mellitus with diabetic neuropathy, unspecified (principal); Z51.81 Encounter for therapeutic drug level monitoring; F11.20 Opioid dependence, uncomplicated; M79.671 Pain in right foot; M79.672 Pain in left foot | CPT/HCPCS: 99212; J7336 ==

== ENCOUNTER → 2022-06-12 12:52 | Outpatient (BNVA) | payer OTHER, SELFPAY | PROVIDERS: PCP Nurse Practitioner Family; Visit Provider Urology | DX: N40.1 Benign prostatic hyperplasia with lower urinary tract symptoms (principal); N13.8 Other obstructive and reflux uropathy; R33.8 Other retention of urine; R39.15 Urgency of urination; R39.198 Other difficulties with micturition; N32.81 Overactive bladder | CPT/HCPCS: 51798; 99202 ==

== ENCOUNTER → 2022-07-06 10:00 | Outpatient (BNVA) | payer OTHER, SELFPAY | PROVIDERS: PCP Nurse Practitioner Family; Visit Provider Nurse Practitioner Family ==

== ENCOUNTER 2022-07-25 07:49 | Outpatient (REF) | payer OTHER, SELFPAY ==
[2022-07-25 10:42] LABS: MANUAL DIFF FLAG NO
[2022-07-25 10:49] LABS: Basophils Percent Auto 0.6 % (0-2); Eosinophils Absolute Auto 0.1 X10*3/uL (0.0-0.4); Eosinophils Percent Auto 1.5 % (0-4); Hematocrit 40.6 % (42.0-52.0); Hemoglobin 13.6 g/dl (14.0-18.0); Imm Gran Abs Auto 0.06 X10*3/uL (0.00-0.03); Imm Gran Pct Auto 0.9 % (0.0-0.4); Lymphocytes Absolute Auto 0.9 X10*3/uL (1.2-4.9); Lymphocytes Percent Auto 13.1 % (20-40); Mean Corpuscular HGB Conc 33.5 g/dl (31.0-36.0); Mean Corpuscular Hemoglobin 33.6 pg (27.0-33.0); Mean Corpuscular Volume 100.2 fL (80.0-98.0); Monocytes Absolute Auto 0.5 X10*3/uL (0.1-1.2); Monocytes Percent Auto 7.2 % (2-11); Neutrophils Absolute Auto 5.2 x10*3/uL (2.0-8.3); Neutrophils Percent Auto 76.7 % (45-73); Platelet Count 165 X10*3/uL (160-400); Red Blood Count 4.05 X10*6/uL (4.60-5.80); Red Cell Distribution Width 13.6 % (11.0-16.0); White Blood Count 6.8 X10*3/uL (4.8-10.8)
[2022-07-25 10:57] LABS: Estimated Average Glucose 128 mg/dL; Hemoglobin A1c % 6.1 %
[2022-07-25 11:08] LABS: Alanine Aminotransferase 35 U/L (0-40); Aspartate Amino Transferase 18 U/L (5-37); C Reactive Protein 0.22 mg/dL (< or = 0.50); Cholesterol 169 mg/dL; Estimated Glomerular Filt Rate > 60; HDL Cholesterol 60 mg/dL; LDL Cholesterol Calculated 84 mg/dl; Triglycerides 125 mg/dL
[2022-07-25 11:16] LABS: Creatinine Urine 250.87 mg/dL; Microalbum/Creatinine Ratio Ur 8.3 ug/mg cr
[2022-07-25 11:22] LABS: PSA,Total (Free>4and<10) 2.11 ng/mL (0.00-4.00)
[2022-07-25 11:30] LABS: Erythrocyte Sedimentation Rate 3 MM/HR (0-15)
== END 2022-07-25 07:50 | disposition home or self-care (01) ==
LOC: HO.10HDL 07:49
PROVIDERS: Internal Medicine Rheumatology; Urology; Visit Provider Nurse Practitioner Family
DX: E11.8 Type 2 diabetes mellitus with unspecified complications (principal); M35.3 Polymyalgia rheumatica; Z12.5 Encounter for screening for malignant neoplasm of prostate; Z79.899 Other long term (current) drug therapy
CPT/HCPCS: 36415; 80061; 82043; 82565; 83036; 84153; 84443; 84450; 84460; 85025; 85652; 86140

== ENCOUNTER 2022-07-27 12:28 | Outpatient (REF) | payer OTHER, SELFPAY ==
--- NOTE | ~2022-07-27 | US_ITS ---
EXAMINATION: US RETROPERITONEAL LIMITED (RENAL ONLY) CLINICAL INFORMATION: Benign prostatic hyperplasia. COMPARISON: None available. TECHNIQUE: Real-time imaging of the kidneys. FINDINGS: RIGHT KIDNEY: 12.3 x 7.6 x 5.4 cm (SAG x AP x TRV). The kidney is normal in size, contour, and echogenicity. Renal cortical thickness is normal. No renal calculi or hydronephrosis. 5 mm benign-appearing renal cyst, no imaging follow-up recommended. LEFT KIDNEY: 12.0 x 6.2 x 4.9 cm (SAG x AP x TRV). The kidney is normal in size, contour, and echogenicity. Renal cortical thickness is normal. No focal parenchymal lesions or hydronephrosis. 4 mm nonobstructing lower pole renal stone. US/US renal BI IMPRESSION: 4 mm nonobstructing left lower pole renal stone.
== END 2022-07-27 12:29 | disposition home or self-care (01) ==
LOC: HO.US 12:28
PROVIDERS: PCP Nurse Practitioner Family; Visit Provider Urology
DX: N40.1 Benign prostatic hyperplasia with lower urinary tract symptoms (principal)
CPT/HCPCS: 76775

== ENCOUNTER → 2022-08-03 09:26 | Outpatient (BNVA) | payer OTHER, SELFPAY | PROVIDERS: PCP Nurse Practitioner Family; Visit Provider Urology | DX: R39.15 Urgency of urination (principal); R33.9 Retention of urine, unspecified; N32.81 Overactive bladder; N20.0 Calculus of kidney | CPT/HCPCS: 52000; 99212 ==

== ENCOUNTER → 2022-08-10 10:24 | Outpatient (BNVA) | payer OTHER, SELFPAY | PROVIDERS: PCP Nurse Practitioner Family; Visit Provider Nurse Practitioner Family | DX: M96.1 Postlaminectomy syndrome, not elsewhere classified (principal); M47.26 Other spondylosis with radiculopathy, lumbar region; M35.3 Polymyalgia rheumatica; E11.40 Type 2 diabetes mellitus with diabetic neuropathy, unspecified; M79.671 Pain in right foot; M79.672 Pain in left foot; Z79.891 Long term (current) use of opiate analgesic | CPT/HCPCS: 99212 ==

== ENCOUNTER 2022-08-10 11:08 | Outpatient (REF) | payer OTHER, SELFPAY ==
[2022-08-10 13:10] LABS: MANUAL DIFF FLAG NO
[2022-08-10 13:28] LABS: Basophils Percent Auto 0.2 % (0-2); Eosinophils Absolute Auto 0.1 X10*3/uL (0.0-0.4); Eosinophils Percent Auto 0.7 % (0-4); Hematocrit 42.7 % (42.0-52.0); Hemoglobin 14.3 g/dl (14.0-18.0); Imm Gran Abs Auto 0.09 X10*3/uL (0.00-0.03); Imm Gran Pct Auto 1.1 % (0.0-0.4); Lymphocytes Absolute Auto 0.9 X10*3/uL (1.2-4.9); Lymphocytes Percent Auto 10.8 % (20-40); Mean Corpuscular HGB Conc 33.5 g/dl (31.0-36.0); Mean Corpuscular Hemoglobin 34.3 pg (27.0-33.0); Mean Corpuscular Volume 102.4 fL (80.0-98.0); Monocytes Absolute Auto 0.6 X10*3/uL (0.1-1.2); Monocytes Percent Auto 7.3 % (2-11); Neutrophils Absolute Auto 6.7 x10*3/uL (2.0-8.3); Neutrophils Percent Auto 79.9 % (45-73); Platelet Count 152 X10*3/uL (160-400); Red Blood Count 4.17 X10*6/uL (4.60-5.80); White Blood Count 8.4 X10*3/uL (4.8-10.8)
[2022-08-10 14:21] LABS: Folate > 20.0 ng/mL (> or = 4.0); Vitamin B12 445 pg/mL (200-900)
[2022-08-11 08:12] LABS: HBS Num1 0.36 mIU/mL (0-7.99); HBc Num1 0.05 S/CO (0.00-0.79); HBsAGNum1 0.28 S/CO (0.00-0.99); Hepatitis A Antibody IgM 0.15 Index (0-0.79); Hepatitis B Core Antibody Nonreactive (Nonreactive); Hepatitis B Surface Antigen Negative (Negative); ~HepC Num1 0.05 S/CO (0.00-0.79); ~Hepatitis A Antibody IgM Nonreactive (Nonreactive); ~Hepatitis B Surface Antibody NONREACTIVE (Nonreactive); ~Hepatitis C Antibody Nonreactive (Nonreactive)
[2022-08-12 16:08] LABS: TS Negative Control Passed; TS Panel A 2; TS Panel B 0; TS Positive Control Passed; TSpotTB Negative (Negative)
== END 2022-08-10 11:09 | disposition home or self-care (01) ==
LOC: HO.10HDL 11:08
PROVIDERS: Internal Medicine Rheumatology; Visit Provider Nurse Practitioner Family
DX: M35.3 Polymyalgia rheumatica (principal); M19.041 Primary osteoarthritis, right hand; M19.042 Primary osteoarthritis, left hand; E11.42 Type 2 diabetes mellitus with diabetic polyneuropathy; D64.9 Anemia, unspecified; Z79.899 Other long term (current) drug therapy; Z79.60 Long term (current) use of unspecified immunomodulators and immunosuppressants
CPT/HCPCS: 36415; 82607; 82746; 85025; 86481; 86704; 86706; 86709; 86803; 87340; 99212

== ENCOUNTER → 2022-09-07 08:47 | Outpatient (BNVA) | payer OTHER, SELFPAY | PROVIDERS: Visit Provider Nurse Practitioner Family | DX: E11.40 Type 2 diabetes mellitus with diabetic neuropathy, unspecified (principal); M79.671 Pain in right foot; M79.672 Pain in left foot; M35.3 Polymyalgia rheumatica; M96.1 Postlaminectomy syndrome, not elsewhere classified; Z79.891 Long term (current) use of opiate analgesic | CPT/HCPCS: 17999; 99212; J7336 ==

== ENCOUNTER 2022-09-11 09:42 | Emergency (ER) | payer OTHER, SELFPAY ==
--- NOTE | ~2022-09-11 | XR_ITS ---
EXAMINATION: XR CHEST CLINICAL INFORMATION: Recurrent vomiting COMPARISON: 06/17/2020 TECHNIQUE: 2 views of the chest were obtained. FINDINGS: Lungs are well-inflated and clear. Trachea is midline in position. No interstitial disease, consolidation or mass. No pleural effusion or pneumothorax. Cardiac silhouette and pulmonary vessels are normal in size. The mediastinum and shayy have normal contour. There is mild spondylosis of the thoracic spine. XR/XR chest 2V IMPRESSION: No acute cardiopulmonary abnormality.
[2022-09-11 10:53] VITALS: BP 139/78; PULSE 62; RESP 14; O2SAT 95; BMI 44.3
--- NOTE | 2022-09-11 13:49 | ED.GENADULT ---
HPI - General Adult General Chief complaint: General Medical Stated complaint: UNABLE TO SWALLOW Time Seen by Provider: 09/11/22 13:39 Source: patient and family Mode of arrival: ambulatory Limitations: no limitations History of Present Illness HPI narrative: 67-year-old presents to the emergency department complaining difficulty swallowing. He states this is going for several weeks he had his worst episode 3 days ago and since has been spitting up everything. He states he was able to take his pills this morning. He states he has [place]'s disease and was out in [place] when he had the episode. Patient states that he came here for further evaluation he denies any fevers chills he denies cough or shortness of breath. Patient states he has no history of acid reflux is not take anything for GERD or gastritis. He and his are expecting to get emergent endoscopy to look at the reason also want to understand why he has a diastasis recti. He has been told it was due to stretching of his abdominal muscles which I explained to him as well. It is non tender and only there when he sits up. Related Data Home Medications Medication Instructions Recorded Confirmed olopatadine 0.1 % eye drops 0 drp ophthalmic (eye) 09/01/21 08/10/22 capsaicin-skin cleanser 8 % See Rx Instructions topical 12/06/21 08/10/22 topical kit (Qutenza) .COMPLEX ketoconazole 2 % shampoo topical 2XW 09/07/22 Previous Rx's Medication Instructions Recorded blood sugar diagnostic (FreeStyle 1 strip miscellaneous DAILY 30 04/07/20 Lite Strips) days #50 strips lancets 28 gauge (FreeStyle 1 gauge topical DAILY 90 days #100 05/11/20 Lancets) ea epinephrine 0.3 mg/0.3 mL 0.3 mg (0.3 mL) IM Q10M PRN 04/20/21 injection, auto-injector (EpiPen) anaphylaxis #2 ea naloxone 4 mg/actuation nasal 4 mg intranasal Q2M PRN opioid 05/12/21 spray (Narcan) overdose #2 ea aspirin 81 mg tablet,delayed 81 mg PO DAILY #90 tabs 12/28/21 release pravastatin 40 mg tablet 40 mg PO DAILY #90 tabs 01/16/22 gabapentin 100 mg capsule 100 mg PO TID 30 days #90 caps 02/08/22 venlafaxine 150 mg 150 mg PO DAILY 90 days #90 caps 03/29/22 capsule,extended release 24 hr CPAP Machine/Device (CPAP) #1 ea 04/11/22 cholecalciferol (vitamin D3) 50 50 mcg PO DAILY 90 days #90 caps 05/08/22 mcg (2,000 unit) capsule diclofenac sodium 1 % topical gel 4 g topical QID PRN for pain #100 05/08/22 grams oxybutynin chloride 5 mg 5 mg PO DAILY 30 days #30 tabs 06/13/22 tablet,extended release 24 hr tamsulosin 0.4 mg capsule 0.4 mg PO BID 30 days #60 caps 06/13/22 ropinirole 0.5 mg tablet 0.5 mg PO BEDTIME #90 tabs 07/17/22 amoxicillin 500 mg capsule 2,000 mg PO ONCE 1 day #4 caps 08/02/22 methotrexate sodium 2.5 mg tablet 25 mg PO QWEEK #120 tabs 08/02/22 folic acid 1 mg tablet 1 mg PO DAILY #90 tabs 08/10/22 prednisone 2.5 mg tablet See Rx Instructions .Route 08/11/22 .COMPLEX #180 tabs oxybutynin chloride 10 mg 10 mg PO DAILY #30 tabs 08/15/22 tablet,extended release 24 hr metformin 500 mg tablet,extended 500 mg PO BID 90 days #180 tabs 08/24/22 release 24 hr metoprolol succinate 25 mg 25 mg PO DAILY #90 tabs 09/01/22 tablet,extended release 24 hr sarilumab 200 mg/1.14 mL 200 mg (1.14 mL) subcut Q2W #2.28 09/01/22 subcutaneous pen injector (Flaco) mL acetaminophen 300 mg-codeine 30 mg 1 tab PO QID PRN pain 30 days #120 09/07/22 tablet tabs famotidine 20 mg tablet (Pepcid) 20 mg PO BID PRN GERD #60 tabs 09/11/22 omeprazole 20 mg capsule,delayed 20 mg PO BID #60 caps 09/11/22 release Allergies Allergy/AdvReac Type Severity Reaction Status Date / Time methadone Allergy Intermediate Vomiting Verified 09/07/22 09:23 ibuprofen [From MOTRIN] AdvReac Severe ANAPHYLAXIS Verified 09/07/22 09:23 NSAID AdvReac Severe Anaphylaxis Uncoded 08/10/22 11:25 Review of Systems Review of Systems: Review of systems: General: Patient denies any fever chills recent illness or falls Musculoskeletal: Denies back pain or body aches or other injuries HEENT: denies headache, runny nose, ear pain Respiratory: denies shortness of breath, cough Cardiovascular: no chest pain or palpitations : denies dysuria, frequency Abdomen: no nausea vomiting denies abdominal pain Extremities: no swelling, no pain Skin: no diaphoresis Yes all other systems are reviewed and are negative [facility] Past Medical History Medical History Adrenal 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 Arterial insufficiency Atherosclerotic cardiovascular disease Diabetes mellitus due to underlying condition with diabetic neuropathy, without long-term current use of insulin Diabetes type 2, controlled 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 Morbid obesity Obesity (BMI 30-39.9) Osteopenia Painful total knee replacement, right Seronegative rheumatoid arthritis Type 2 diabetes mellitus with peripheral neuropathy Vitamin D deficiency Surgical History History of back surgery History of knee replacement procedure of left knee History of knee replacement procedure of right knee Hx of cardiac cath Hx of coronary angiogram Family History Family History Father Angina pectoris Mother Stroke Social History Social History Household Members: Spouse Housing: House Are you a primary manager home healthcare to a significant other at home: No Do you presently have visiting nurse or other home services: No Alcohol intake: current Alcohol intake frequency: holidays/special occasions only Alcohol type: beer and hard liquor Patient Tobacco Use Status: Former Tobacco user Quit Date: 1998 Years Smoked: 20 years ago Smoked in Last 30 Days: No e-Cigarette/Vaping Use: Never Used Second Hand Smoke Exposure: No Use of substances other than those prescribed or required for medical reasons: Yes Substance Use Type: Marijuana Substance Use Frequency: Occasionally Advance Directives: No Advance Directives Information Provided: No service: No Current occupational status: retired Cognitive needs: No Hearing needs: No Vision needs: No Physical Exam ED Vital Signs: Vital Signs - 24 hr 09/11/22 10:53 09/11/22 14:07 09/11/22 14:54 Temperature 98.6 F 98.1 F Pulse Rate 62 71 60 Respiratory Rate 14 16 18 Blood Pressure 139/78 179/76 H 171/87 H Pulse Oximetry 95 93 96 Oxygen Delivery Method Room Air Room Air Room Air BMI result Body Mass Index 44.3 General: Well-appearing well-nourished in no signs of distress HEENT: Normocephalic atraumatic Neck: No signs of JVD, no masses no tenderness or lymphadenopathy Cardiovascular: Regular rate and rhythm Respiratory: Clear to auscultation bilaterally Abdomen: Soft nontender no masses distasis recti non tender Extremities: Normal pedal pulses no signs of edema Skin: Dry warm no rashes Back: No tenderness full ROM Course Reevaluation(s) Reevaluation #1: 1520 patient was reassessed after getting medicated the patient is feeling much better I will send patient home with [facility] and have the patient follow up his doctor. Medications Administered Discontinued Medications Generic Name Dose Route Start Last Admin Trade Name Jennifer PRN Reason Stop Dose Admin Famotidine 20 mg 09/11/22 13:48 09/11/22 14:30 Famotidine/Pf 20 Mg/2 Ml Vial IVPUSH 09/11/22 13:49 20 mg ONCE ONE Administration Sodium Chloride 1,000 mls @ 999 mls/hr 09/11/22 13:45 09/11/22 14:30 Ns IV 09/11/22 14:45 999 mls/hr .Q1H1M ASHLEY Administration Omeprazole 20 mg 09/11/22 13:48 09/11/22 14:30 Omeprazole 20 Mg Capsule.Dr PO 09/11/22 13:49 20 mg ONCE ONE Administration Medical Decision Making Medical Decision Making [facility] Narrative: Patient here with likely onset gastritis I did educate the patient on smaller meals as well as fluid replacement therapies he continues have issues eating drinking I will check electrolytes to make sure there is other concerning signs the duration the patient up outpatient likely endoscopy in the future I will start patient on omeprazole Pepcid here. Differential Diagnosis Differential Diagnoses: The differential diagnosis associated with the presentation includes Gastritis acid reflux esophageal spasm Admission/Observation Consideration of admission/observation: Escalation of care including admission/observation considered Lab Data [facility] Lab Attestation statement: I reviewed the patient's lab results. 09/11/22 14:20 09/11/22 14:20 Labs: Lab Results 09/11/22 09/11/22 Range/Units 14:20 14:20 WBC 7.7 (4.8-10.8) X10*3/uL RBC 4.32 L (4.60-5.80) X10*6/uL Hgb 14.7 (14.0-18.0) g/dl Hct 43.2 (42.0-52.0) % MCV 100.0 H (80.0-98.0) fL MCH 34.0 H (27.0-33.0) pg MCHC 34.0 (31.0-36.0) g/dl RDW 13.7 (11.0-16.0) % Plt Count 177 (160-400) X10*3/uL MPV 9.0 L (9.4-12.4) fL Immature Gran % (Auto) 0.8 H (0.0-0.4) % Neut % (Auto) 78.2 H (45-73) % Lymph % (Auto) 11.7 L (20-40) % Kerr % (Auto) 7.2 (2-11) % Eos % (Auto) 1.8 (0-4) % Baso % (Auto) 0.3 (0-2) % Lymph # (Auto) 0.9 L (1.2-4.9) X10*3/uL Kerr # (Auto) 0.6 (0.1-1.2) X10*3/uL Eos # (Auto) 0.1 (0.0-0.4) X10*3/uL Baso # (Auto) 0.0 (0.0-0.2) X10*3/uL Abs Immat Gran (auto) 0.06 H (0.00-0.03) X10*3/uL Absolute Neuts (auto) 6.0 (2.0-8.3) x10*3/uL Absolute Nucleated RBC 0.000 (0.0-0.012) X10*3/uL Nucleated RBC % (auto) 0.0 (0.0-0.2) /100WBC Sodium 138 (135-145) mmol/L Potassium 4.2 (3.3-5.1) mmol/L Chloride 104 (96-108) mmol/L Carbon Dioxide 23 (22-29) mmol/L Anion Gap 15 (12-20) BUN 13 (9-16) mg/dL Creatinine 0.90 (0.5-1.4) mg/dL Estim Creat Clear Calc 106.1 Estimated GFR > 60 Random Glucose 156 H (60-115) mg/dL Calcium 9.7 (8.4-10.2) mg/dL Magnesium 2.0 (1.6-2.6) mg/dL Total Bilirubin 1.9 H (0.0-1.0) mg/dL Direct Bilirubin 0.5 (0.0-0.5) mg/dL AST 16 (5-37) U/L ALT 30 (0-40) U/L Alkaline Phosphatase 46 (39-117) U/L Total Protein 7.0 (6.5-8.0) g/dL Albumin 4.4 (3.5-5.0) g/dL Lipase 15 (8-78) U/L Independent Historian Clinical information obtained from an independent historian. History obtained from or confirmed by: Spouse External Record Review External record reviewed: Inpatient record Discharge Plan Discharge Clinical Impression: Gastritis, Persistent recurrent vomiting Patient Disposition: Home, Self-Care Instructions: Gastritis (ED), Diet for Stomach Ulcers and Gastritis (ED) Additional Instructions: He was seen today for current vomiting and gastritis. Please call follow-up with GI if you have worsening trouble swallowing worsening pain or any other concerns please do not hesitate to come back to the emergency department. Prescriptions: New omeprazole 20 mg capsule,delayed release(DR/EC) 20 mg PO BID Qty: 60 0RF famotidine [Pepcid] 20 mg tablet 20 mg PO BID PRN (Reason: GERD) Qty: 60 0RF No Action blood sugar diagnostic [FreeStyle Lite Strips] Strip 1 strip miscellaneous DAILY 30 Days Qty: 50 6RF lancets [FreeStyle Lancets] 28 gauge misc 1 gauge topical DAILY 90 Days Qty: 100 1RF epinephrine [EpiPen] 0.3 mg/0.3 mL auto-injector 0.3 mg IM Q10M PRN (Reason: anaphylaxis) Qty: 2 3RF Rx Instructions: for 2 doses aspirin 81 mg tablet,delayed release (DR/EC) 81 mg PO DAILY Qty: 90 3RF pravastatin 40 mg tablet 40 mg PO DAILY Qty: 90 3RF gabapentin 100 mg capsule 100 mg PO TID 30 Days Qty: 90 0RF Rx Instructions: first day take 1 tab only. Second day go to 1 tab twice a day, third day, and thereafter, go to 1 tab three times a day venlafaxine 150 mg capsule,extended release 24hr 150 mg PO DAILY 90 Days Qty: 90 2RF (DME) CPAP Machine/Device Device See Rx Instructions .Route Qty: 1 0RF Rx Instructions: use daily cholecalciferol (vitamin D3) 50 mcg (2,000 unit) capsule 50 mcg PO DAILY 90 Days Qty: 90 2RF diclofenac sodium 1 % gel 4 g topical QID PRN (Reason: for pain) Qty: 100 3RF oxybutynin chloride 5 mg tablet extended release 24hr 5 mg PO DAILY 30 Days Qty: 30 1RF tamsulosin 0.4 mg capsule 0.4 mg PO BID 30 Days Qty: 60 1RF ropinirole 0.5 mg tablet 0.5 mg PO BEDTIME Qty: 90 1RF Rx Instructions: administer 1-3 hours before bedtime methotrexate sodium 2.5 mg tablet 25 mg PO QWEEK Qty: 120 0RF folic acid 1 mg tablet 1 mg PO DAILY Qty: 90 3RF prednisone 2.5 mg tablet See Rx Instructions .ROUTE .COMPLEX Qty: 180 2RF Rx Instructions: take 4 tab in AM and 2 tab in PM daily oxybutynin chloride 10 mg tablet extended release 24hr 10 mg PO DAILY Qty: 30 1RF metformin 500 mg tablet extended release 24 hr 500 mg PO BID 90 Days Qty: 180 1RF metoprolol succinate 25 mg tablet extended release 24 hr 25 mg PO DAILY Qty: 90 1RF Kevzara 200 mg/1.14 mL pen injector 200 mg subcut Q2W Qty: 2.28 4RF amoxicillin 500 mg capsule 2,000 mg PO ONCE 1 Days Qty: 4 2RF Rx Instructions: take 1 hr before dental procedure naloxone [Narcan] 4 mg/actuation spray,non-aerosol 4 mg intranasal Q2M PRN (Reason: opioid overdose) Qty: 2 0RF Rx Instructions: spray 1 dose into ONE nostril; alternate nostrils w each dose until help arrives Qutenza 8 % kit See Rx Instructions topical .COMPLEX Rx Instructions: apply up to 4 (four) CAPSAICIN PATCHES to affected area; remove patch(es) after 30-60 minutes and apply SKIN CLEANSER gel as directed topical olopatadine 0.1 % drops 0 drp ophthalmic (eye) ketoconazole 2 % shampoo topical 2XW acetaminophen-codeine 300-30 mg tablet 1 tab PO QID PRN (Reason: pain) 30 Days Qty: 120 0RF Rx Instructions: Partial Fill upon patient request. ciprofloxacin HCl 500 mg tablet 500 mg PO ONCE Qty: 1 0RF
[2022-09-11 14:07] VITALS: BP 179/76; PULSE 71; RESP 16; TEMP 37; O2SAT 93
[2022-09-11 14:44] LABS: Alanine Aminotransferase 30 U/L (0-40); Albumin Level 4.4 g/dL (3.5-5.0); Alkaline Phosphatase 46 U/L (39-117); Anion Gap 15 (12-20); Aspartate Amino Transferase 16 U/L (5-37); Bilirubin Direct 0.5 mg/dL (0.0-0.5); Bilirubin Total 1.9 mg/dL (0.0-1.0); Blood Urea Nitrogen 13 mg/dL (9-16); Calcium 9.7 mg/dL (8.4-10.2); Carbon Dioxide 23 mmol/L (22-29); Chloride 104 mmol/L (96-108); Creatinine Clr Calc Pharmacy 106.1; Estimated Glomerular Filt Rate > 60; Glucose Random 156 mg/dL (60-115); Lipase 15 U/L (8-78); Potassium 4.2 mmol/L (3.3-5.1); Sodium 138 mmol/L (135-145)
--- NOTE | 2022-09-11 14:50 | PC.NURSE ---
pt a&ox3, respirations equal and unlabored. skin warm pink and dry. pt reporting hard time swallowing water and food since sunday,, no n/v reported. upper epigastric pain reported. pt speaking in full clear sentences, able to tolerate prilosec orally without difficulty.
[2022-09-11 14:54] VITALS: BP 171/87; PULSE 60; RESP 18; TEMP 36.7; O2SAT 96
== END 2022-09-11 16:37 | disposition home or self-care (01) ==
PROVIDERS: Emergency Provider Student in an Organized Health Care Education/Training Program; PCP Nurse Practitioner Family
DX: R13.10 Dysphagia, unspecified (principal); K29.70 Gastritis, unspecified, without bleeding; R11.2 Nausea with vomiting, unspecified; R07.89 Other chest pain; Z87.891 Personal history of nicotine dependence; Z79.899 Other long term (current) drug therapy
CPT/HCPCS: 36415; 71046; 80048; 80076; 83690; 83735; 85025; 96374; 99284

== ENCOUNTER 2022-09-18 12:54 | Outpatient (AMB) | payer OTHER, SELFPAY ==
[2022-09-18 13:03] VITALS: BP 137/66; PULSE 58; BMI 43.7
--- NOTE | 2022-09-18 13:03 | A.OFFVIS_ITS ---
Intake Vital Signs 09/18/22 13:03 Height 5 ft 8 in Weight 287 lb 7.724 oz BMI 43.7 BP 137/66 Blood Pressure Location Lt brachial Position Sitting Pulse 58 Intake Visit Reasons: Dysphagia Intake Note: Patient presents to in office visit today as a new patient for dysphasia. CC: Patient reports that he feels that his food does not go all the way down to his stomach and builds up until it comes up. He was seen in the ER last weekend. Denies other GI symptoms. Coil Inspector Required: No Allergies methadone Allergy (Intermediate, Verified 09/18/22 13:06) Vomiting ibuprofen [From MOTRIN] Adverse Reaction (Severe, Verified 09/18/22 13:06) ANAPHYLAXIS NSAID Adverse Reaction (Severe, Uncoded 08/10/22 11:25) Anaphylaxis Medication List - Last Reconciled 09/18/22 by Chiara Carson PA-C acetaminophen-codeine 300-30 mg 1 tab PO QID PRN 30 days amoxicillin 2,000 mg (4 x 500 mg) PO ONCE 1 day aspirin 81 mg PO DAILY blood sugar diagnostic (FreeStyle Lite Strips) 1 strip miscellaneous DAILY 30 days capsaicin-skin cleanser 8 % (Qutenza) apply up to 4 (four) CAPSAICIN PATCHES to affected area; remove patch(es) after 30-60 minutes and apply SKIN CLEANSER gel as directed topical cholecalciferol (vitamin D3) 50 mcg PO DAILY 90 days CPAP Machine/Device (CPAP) use daily NS diclofenac sodium 1% 4 grams topical QID PRN epinephrine (EpiPen) 0.3 mg (0.3 mL) IM Q10M PRN famotidine (Pepcid) 20 mg PO BID PRN folic acid 1 mg PO DAILY ketoconazole 2% topical 2XW lancets (FreeStyle Lancets) 1 gauge topical DAILY 90 days metformin ER 500 mg PO BID 90 days methotrexate sodium 10 mg PO QWEEK metoprolol succinate ER 25 mg PO DAILY naloxone 4 mg/actuation (Narcan) 4 mg intranasal Q2M PRN olopatadine 0.1% 0 drps ophthalmic (eye) omeprazole 20 mg PO BID oxybutynin chloride ER 10 mg PO BID Pepcid (famotidine) 20 mg PO BID PRN NS pravastatin 40 mg PO DAILY prednisone take 4 tab in AM and 2 tab in PM daily ropinirole 0.5 mg PO BEDTIME sarilumab (Kevzara) 200 mg (1.14 mL) subcut Q2W tamsulosin 0.4 mg PO BID 30 days venlafaxine ER 150 mg PO DAILY 90 days HPI HPI Comments History of Present Illness Details present- A 67 y/o male intermittent dysphagia to solids- he does not have a hx of acid reflux-however he does describe symptoms of acid reflux-ongoing for years. He had not been taking any acid suppression Seems at the end of the meal food seems to get caught up - not frequently-he has not show See cardioology anually- due Sept Vascular- [place]- Annually Cpap- pcp- Normal bowel pattern up to date on colonoscopy due next year Is not having any nausea, vomiting hematemesis, hematochezia fevers PFSH Medical History Adrenal 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 Arterial insufficiency Atherosclerotic cardiovascular disease Diabetes mellitus due to underlying condition with diabetic neuropathy, without long-term current use of insulin Diabetes type 2, controlled Diabetic neuropathy associated with type 2 diabetes mellitus 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 Morbid obesity Obesity (BMI 30-39.9) Osteopenia Painful total knee replacement, right Seronegative rheumatoid arthritis Type 2 diabetes mellitus with peripheral neuropathy Vitamin D deficiency Surgical History H/O colonoscopy History of back surgery History of knee replacement procedure of left knee History of knee replacement procedure of right knee Hx of cardiac cath Hx of coronary angiogram Family History Father Angina pectoris Mother Stroke Social History Household Members: Spouse Housing: House Are you a primary animal caretaker to a significant other at home: No Do you presently have visiting nurse or other home services: No Alcohol intake: current Alcohol intake frequency: holidays/special occasions only Alcohol type: beer and hard liquor Patient Tobacco Use Status: Former Tobacco user Quit Date: 1998 Years Smoked: 20 years ago e-Cigarette/Vaping Use: Never Used Second Hand Smoke Exposure: No Substance Use Type: Marijuana service: No Current occupational status: retired Cognitive needs: No Hearing needs: No Vision needs: No Review of Systems Const All systems reviewed & are unremarkable except as noted in HPI and below ENT Reports dysphagia Card Denies chest pain and Denies dyspnea Resp Denies dyspnea GI Reports dysphagia and Denies heartburn Physical Exam Vital Signs: Last Vital Signs Pulse 58 09/18/22 13:03 BP 137/66 09/18/22 13:03 BMI result Body Mass Index 43.7 Const General: cooperative, comfortable and no acute distress Nutritional Appearance: obese Orientation/consciousness: patient oriented x3 Limitations: no limitations Eyes Sclerae: sclerae normal Resp Effort & Inspection: normal respiratory effort and able to speak in complete sentences Auscultation: clear to auscultation bilaterally and no wheezes Cardio Rate: regular rate Rhythm: regular rhythm Heart sounds: S1 normal heart sound present and S2 normal heart sound present GI Palpation (GI): Soft to palpation and nontender Auscultation: normal bowel sounds Skin General skin exam: no rashes or lesions noted Neuro General: patient oriented x3 Extrem General: Yes full ROM Psych Appearance: grossly normal Mental Status: mental status grossly normal Speech and movement: Normal speech and movement present and Clear speech present Affect: normal affect Attitude: cooperative Thought process: Normal thought process present Thought content: Normal thought content present Results Reviewed Results Reviewed: 2014-Nigel- hyperplastic polyp= Assessment & Plan Assessment & Plan (1) Dysphagia: Comment: EGD r/o stricture, pud, nonulcer dyspepsia, esophagitis other endoscopic findings to come for symptom Acid reflux, reviewed precautions, not previously been taking acid suppression- encouraged Code(s): R13.10 - Dysphagia, unspecified Plan: EGD, Chew well eat slow (2) Long-term use of immunosuppressant medication: Code(s): Z79.60 - [facility] (current) use of unspecified immunomodulators and immunosuppressants Plan EGD anesthesia consult multiple comorbidities Orders: Orders FL barium swallow 09/18/22 R13.10 - Dysphagia, unspecified EDG - GI Use Only 09/18/22 R13.10 - Dysphagia, unspecified Patient Instructions: 67-year-old obese, male multiple comorbidities referred with dysphagia to solids-symptoms of acid reflux encourage PPI Depending on scheduling Ordered for barium swallow to assess for stricture, as well EGD recommended , depends on where they are scheduling out-he will need anesthesia consult. Discussed procedure, risks, medications, need for escort due to anesthesia Reflux precautions reviewed He is agreeable with the plan Recommend he Eat slowly, chew well Coding Level of Care Code New Pt Level 4 (49500) Diagnoses Dysphagia R13.10 Long-term use of immunosuppressant medication Z79.60 Time Spent (min) 35
== END 2022-09-18 14:47 | disposition home or self-care (01) ==
PROVIDERS: PCP Nurse Practitioner Family; Visit Provider Physician Assistant
DX: R13.10 Dysphagia, unspecified (principal); Z79.60 Long term (current) use of unspecified immunomodulators and immunosuppressants
CPT/HCPCS: 99204

== ENCOUNTER → 2022-09-18 12:54 | Outpatient (BNVA) | payer OTHER, SELFPAY | PROVIDERS: PCP Nurse Practitioner Family; Visit Provider Physician Assistant | DX: R13.10 Dysphagia, unspecified (principal); Z79.60 Long term (current) use of unspecified immunomodulators and immunosuppressants | CPT/HCPCS: 99202 ==

== ENCOUNTER 2022-10-03 11:22 | Outpatient (AMB) | payer OTHER, SELFPAY ==
--- NOTE | 2022-10-03 11:40 | A.OFFVIS_ITS ---
Intake Vital Signs 10/03/22 11:57 Height 5 ft 8 in Weight 287 lb BMI 43.6 BP 140/73 H Blood Pressure Location Lt brachial Position Sitting Pulse 59 Pulse Source Pulse Oximeter Pulse Oximetry (%) 97 Oxygen Delivery Method Room Air Intake Visit Reasons: Pill count Intake Note: Lino comes in today for a pill count to tylenol #3, patient should have 104 tablets and presents with a total of 131.5 tablet, 11.5 tablets from last script and 120 tablets that was just picked up. Patient last took today 10/03/22 at 10am. Pain today 5.10 Casework Manager Required: No Accompanied by: Spouse Allergies methadone Allergy (Intermediate, Verified 10/03/22 11:58) Vomiting ibuprofen [From MOTRIN] Adverse Reaction (Severe, Verified 10/03/22 11:58) ANAPHYLAXIS NSAID Adverse Reaction (Severe, Uncoded 08/10/22 11:25) Anaphylaxis HPI HPI Comments History of Present Illness Details Patient presents for pill count. He is supposed to have #104 pills, in his possession has #131.5 pills. This demonstrates a responsible attitude in regards to the medication regimen. Patient reports adequate pain relief without noted side effects on his regime of acetaminophen-codeine 300-30 mg 1 tab QID prn and reports using medication only for severe pain. Denies any fever, chills, headache, dyspnea, constipation, nausea, sedation, dizziness, bowel/bladder dysfunction or saddle anesthesia. Patient reports anterior and lateral shoulder tenderness and is interested to receive subacromial bursa injection with steroid. He attributes pain due to recent heavy lifting and moving objects. His range of motions of both shoulders are preserved but has pain with overhead reaches or reaching his back side pocket. Denies numbness or tingling in his left upper extremity. 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 Morbid obesity Obesity (BMI 30-39.9) Osteopenia Painful total knee replacement, right Seronegative rheumatoid arthritis Type 2 diabetes mellitus with peripheral neuropathy Vitamin D deficiency Surgical History H/O colonoscopy History of back surgery History of knee replacement procedure of left knee History of knee replacement procedure of right knee Hx of cardiac cath Hx of coronary angiogram Family History Father Angina pectoris Mother Stroke Social History Household Members: Spouse Housing: House Are you a primary laboratory animal care veterinarian to a significant other at home: No Do you presently have visiting nurse or other home services: No 75 years or older and lives alone: No Alcohol intake: current Alcohol intake frequency: holidays/special occasions only Alcohol type: beer and hard liquor Patient Tobacco Use Status: Former Tobacco user Quit Date: 1998 Years Smoked: 20 years ago e-Cigarette/Vaping Use: Never Used Second Hand Smoke Exposure: No Substance Use Type: Marijuana service: No Current occupational status: retired Cognitive needs: No Hearing needs: No Vision needs: No Review of Systems Const All systems reviewed & are unremarkable except as noted in HPI and below Physical Exam Vital Signs: Last Vital Signs Pulse 59 10/03/22 11:57 BP 140/73 H 10/03/22 11:57 Pulse Ox 97 10/03/22 11:57 Oxygen Delivery Method Room Air 10/03/22 11:57 BMI result Body Mass Index 43.6 General: Appears afebrile. Alert and oriented. Mood and affect appropriate. Follows and participates in conversation appropriately. Respiratory effort is unlabored. Able to transition from sit to stand unassisted. Neck Neck: Yes full ROM, Yes no lymphadenopathy, Yes supple and No anterior neck swelling Extrem General: Yes capillary refill normal, Yes no clubbing, cyanosis or edema and Yes no pedal edema Left upper extremity: shoulder/upper arm Details: tenderness Location: over the subacromial bursa, normal ROM (pain with overhead and backside pocket reaches) and crepitus; no swelling, no ecchymosis and no unsual warmth Assessment & Plan Assessment & Plan (1) Chronic painful diabetic neuropathy: Code(s): E11.40 - Type 2 diabetes mellitus with diabetic neuropathy, unspecified (2) Bilateral foot pain: Code(s): M79.671 - Pain in right foot; M79.672 - Pain in left foot (3) Failed back syndrome of lumbar spine: Code(s): M96.1 - Postlaminectomy syndrome, not elsewhere classified (4) Subacromial bursitis of left shoulder joint: Code(s): M75.52 - Bursitis of left shoulder Plan Patient has shown accountability for his medication regimen and the pill count was accurate. There is no evidence of misuse, abuse or diversion at this time. MassPat reviewed. I will hold off on refilling his opioid medication due to surplus medication. Patient will call us to let us know when he is down to 10 pills, and I will send a refill at that time. Will try to arrange left shoulder subacromial bursa injection with Dr. Mead. Follow up for a pill count as scheduled and sooner if needed. Coding Level of Care Code Est Pt Level 4 (98508) Diagnoses Chronic painful diabetic neuropathy E11.40 Bilateral foot pain M79.671; M79.672 Failed back syndrome of lumbar spine M96.1 Subacromial bursitis of left shoulder joint M75.52
[2022-10-03 11:57] VITALS: BP 140/73; PULSE 59; O2SAT 97; BMI 43.6
== END 2022-10-03 12:14 | disposition home or self-care (01) ==
PROVIDERS: PCP Nurse Practitioner Family; Visit Provider Nurse Practitioner Family
DX: E11.40 Type 2 diabetes mellitus with diabetic neuropathy, unspecified (principal); M79.671 Pain in right foot; M79.672 Pain in left foot; M96.1 Postlaminectomy syndrome, not elsewhere classified; M75.52 Bursitis of left shoulder
CPT/HCPCS: 99214

== ENCOUNTER → 2022-10-03 11:22 | Outpatient (BNVA) | payer OTHER, SELFPAY | PROVIDERS: PCP Nurse Practitioner Family; Visit Provider Nurse Practitioner Family | DX: M75.52 Bursitis of left shoulder (principal); M79.672 Pain in left foot; M79.671 Pain in right foot; M35.3 Polymyalgia rheumatica; M96.1 Postlaminectomy syndrome, not elsewhere classified; E11.40 Type 2 diabetes mellitus with diabetic neuropathy, unspecified; Z79.899 Other long term (current) drug therapy | CPT/HCPCS: 99212 ==

== ENCOUNTER 2022-10-11 12:28 | Day surgery (SDC) | payer OTHER, SELFPAY ==
--- NOTE | 2022-10-10 11:01 | HO.ANESPROP2 ---
Documented by User: Donna Chow NP 10/10/22 11:05 HPI - Anesthesia Eval Consult details Narrative: 67yo M for Upper Endoscopy PMR and RA on chronic steroids 11/2021 cardiac office visit - stable CAD with 1 year f/u. [facility] Active Problems Active Problems: All Active Problems (Updated 10/03/22 @ 12:50 by LOUIS Aden) Subacromial bursitis of left shoulder joint (Acute) Dysphagia (Acute) Long-term use of immunosuppressant medication (Acute) Kidney stone on left side (Acute) Enlarged prostate (Acute) Anemia (Acute) OAB (overactive bladder) (Acute) Urinary urgency (Acute) Slowing of urinary stream (Acute) BPH loc w urin obs/LUTS (Acute) Incomplete bladder emptying (Acute) Sleep apnea (Acute) HTN (hypertension) (Acute) Type 2 diabetes mellitus with peripheral neuropathy (Acute) Diabetes mellitus due to underlying condition with diabetic neuropathy, without long-term current use of insulin (Acute) Polymyalgia rheumatica (Acute) Osteoarthritis of hands, bilateral (Acute) Chronic painful diabetic neuropathy (Acute) PAD (peripheral artery disease) (Acute) Opioid use agreement exists (Acute) Other spondylosis with radiculopathy, lumbar region (Acute) Failed back syndrome of lumbar spine (Acute) Iatrogenic Dennys's disease (Acute) Type 2 diabetes mellitus with unspecified complications (Acute) Bilateral hip pain (Acute) Morbid obesity (Acute) Atherosclerotic cardiovascular disease (Acute) 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 (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) Seronegative rheumatoid arthritis (Acute) Vitamin D deficiency (Acute) Osteopenia (Acute) Trochanteric bursitis of both hips (Acute) 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 (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) Adrenal insufficiency (Acute) Past Medical History Medical History Adrenal 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 Arterial insufficiency Atherosclerotic cardiovascular disease Diabetes mellitus due to underlying condition with diabetic neuropathy, without long-term current use of insulin Diabetes type 2, controlled 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 [facility] methotrexate user Morbid obesity Obesity (BMI 30-39.9) Osteopenia Painful total knee replacement, right Seronegative rheumatoid arthritis Type 2 diabetes mellitus with peripheral neuropathy Vitamin D deficiency Family History Family History Father Angina pectoris Mother Stroke Surgical History Surgical History H/O colonoscopy History of back surgery History of knee replacement procedure of left knee History of knee replacement procedure of right knee Hx of cardiac cath Hx of coronary angiogram Social History Social History Household Members: Spouse Housing: House Are you a primary personal care assistant to a significant other at home: No Do you presently have visiting nurse or other home services: No Alcohol intake: current Alcohol intake frequency: holidays/special occasions only Alcohol type: beer and hard liquor Patient Tobacco Use Status: Former Tobacco user Quit Date: 1998 Years Smoked: 20 years ago e-Cigarette/Vaping Use: Never Used Second Hand Smoke Exposure: No Use of substances other than those prescribed or required for medical reasons: No Substance Use Type: Marijuana Are you DNR?: No Advance Directives: No Advance Directives Information Provided: Yes Advance Directives on File: No service: No Current occupational status: retired Cognitive needs: No Hearing needs: No Vision needs: No Meds Allergies Allergy/AdvReac Type Severity Reaction Status Date / Time methadone Allergy Intermediate Vomiting Verified 10/03/22 11:58 ibuprofen [From MOTRIN] AdvReac Severe ANAPHYLAXIS Verified 10/03/22 11:58 NSAID AdvReac Severe Anaphylaxis Uncoded 08/10/22 11:25 Home Medications Medication Instructions Recorded Confirmed Last Taken Type olopatadine 0.1 % eye drops 0 drp ophthalmic (eye) 09/01/21 08/10/22 Unknown History capsaicin-skin cleanser 8 % See Rx Instructions topical 12/06/21 10/11/22 Unknown History topical kit (Qutenza) .COMPLEX ketoconazole 2 % shampoo topical 2XW 09/07/22 Unknown History oxybutynin chloride 10 mg 10 mg PO BID 09/18/22 10/11/22 Unknown History tablet,extended release 24 hr Exam Exam Date and Time: October 10, 2022 1101 Pertinent Lab Results Pertinent Lab Results: Laboratory Tests 09/11/22 09/11/22 14:20 14:20 WBC 7.7 Hgb 14.7 Hct 43.2 Plt Count 177 Sodium 138 Potassium 4.2 Chloride 104 Carbon Dioxide 23 BUN 13 Creatinine 0.90 Narrative Narrative: EKG 11/2021 sinus rhythm at 65/Min; no significant ST-T changes and otherwise unremarkable.? Normal GA and corrected QT.? Isolated PVC Echocardiogram with normal LVEF, 55-60% and no significant valvular pathology.? No evidence of pulmonary hypertension. Myocardial perfusion imaging showed no definitive ischemia or infarction, but there was a small inferior apical fixed defect.? Calcium scoring was very high at 1835.? There was dense calcification in the LAD.? CT angio portion was not performed.? Cardiac catheterization then showed 50% stenosis in the mid LAD, but IFR itself was not significant.? Minor irregularities in the circumflex and right coronary arteries and left main was normal. Assessment and Plan Assessment Anesthesia Assessment: Chart Reviewed Documented by User: Emperatriz Rodriguez MD 10/11/22 13:26 [facility] Active Problems Active Problems: All Active Problems (Updated 10/11/22 @ 12:55 by Emperatriz Rodriguez MD Subacromial bursitis of left shoulder joint (Acute) Dysphagia (Acute) Long-term use of immunosuppressant medication (Acute) Kidney stone on left side (Acute) Enlarged prostate (Acute) Anemia (Acute) OAB (overactive bladder) (Acute) Urinary urgency (Acute) Slowing of urinary stream (Acute) BPH loc w urin obs/LUTS (Acute) Incomplete bladder emptying (Acute) Sleep apnea (Acute). On CPAP HTN (hypertension) (Acute) Type 2 diabetes mellitus with peripheral neuropathy (Acute) feet and sometimes with numbness in hands Diabetes mellitus due to underlying condition with diabetic neuropathy, without long-term current use of insulin (Acute) Polymyalgia rheumatica (Acute) Osteoarthritis of hands, bilateral (Acute) Chronic painful diabetic neuropathy (Acute) PAD (peripheral artery disease) (Acute) Opioid use agreement exists (Acute) Other spondylosis with radiculopathy, lumbar region (Acute) Failed back syndrome of lumbar spine (Acute) Iatrogenic Dennys's disease (Acute) Type 2 diabetes mellitus with unspecified complications (Acute) Bilateral hip pain (Acute) Morbid obesity (Acute) Atherosclerotic cardiovascular disease (Acute) 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 (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) Seronegative rheumatoid arthritis (Acute) Vitamin D deficiency (Acute) Osteopenia (Acute) Trochanteric bursitis of both hips (Acute) 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 (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) Adrenal insufficiency (Acute) Past Medical History Medical History Adrenal 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 Arterial insufficiency Atherosclerotic cardiovascular disease Diabetes mellitus due to underlying condition with diabetic neuropathy, without long-term current use of insulin Diabetes type 2, controlled 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 Morbid obesity Obesity (BMI 30-39.9) Osteopenia Painful total knee replacement, right Seronegative rheumatoid arthritis Type 2 diabetes mellitus with peripheral neuropathy Vitamin D deficiency Family History Family History Father Angina pectoris Mother Stroke Family history of problems with anesthesia: No Surgical History Surgical History H/O colonoscopy History of back surgery History of knee replacement procedure of left knee History of knee replacement procedure of right knee Hx of cardiac cath Hx of coronary angiogram History of Problems with Anesthesia: No Social History Social History Household Members: Spouse Housing: House Are you a primary personal care assistant to a significant other at home: No Do you presently have visiting nurse or other home services: No Alcohol intake: current Alcohol intake frequency: holidays/special occasions only Alcohol type: beer and hard liquor Patient Tobacco Use Status: Former Tobacco user Quit Date: 1998 Years Smoked: 20 years ago e-Cigarette/Vaping Use: Never Used Second Hand Smoke Exposure: No Use of substances other than those prescribed or required for medical reasons: No Substance Use Type: Marijuana Are you DNR?: No Advance Directives: No Advance Directives Information Provided: Yes Advance Directives on File: No service: No Current occupational status: retired Cognitive needs: No Hearing needs: No Vision needs: No Meds Allergies Allergy/AdvReac Type Severity Reaction Status Date / Time methadone Allergy Intermediate Vomiting Verified 10/03/22 11:58 ibuprofen [From MOTRIN] AdvReac Severe ANAPHYLAXIS Verified 10/03/22 11:58 NSAID AdvReac Severe Anaphylaxis Uncoded 08/10/22 11:25 Home Medications Medication Instructions Recorded Confirmed Last Taken Type olopatadine 0.1 % eye drops 0 drp ophthalmic (eye) 09/01/21 08/10/22 Unknown History capsaicin-skin cleanser 8 % See Rx Instructions topical 12/06/21 10/11/22 Unknown History topical kit (Qutenza) .COMPLEX ketoconazole 2 % shampoo topical 2XW 09/07/22 Unknown History oxybutynin chloride 10 mg 10 mg PO BID 09/18/22 10/11/22 Unknown History tablet,extended release 24 hr Exam Height,Weight and Vital Signs: Height 5 ft 8 in Weight 130.181 kg Vital Signs Temp Pulse Resp BP Pulse Ox O2 Del Method 10/11/22 12:53 97.9 F 52 18 162/70 H 95 Room Air Narrative Narrative: EKG 11/2021 Sinus rhythm at 65/Min; no significant ST-T changes and otherwise unremarkable.? Normal GA and corrected QT.? Isolated PVC Echocardiogram with normal LVEF, 55-60% and no significant valvular pathology.? No evidence of pulmonary hypertension. Myocardial perfusion imaging showed no definitive ischemia or infarction, but there was a small inferior apical fixed defect.? Calcium scoring was very high at 1835.? There was dense calcification in the LAD.? CT angio portion was not performed.? Cardiac catheterization then showed 50% stenosis in the mid LAD, but IFR itself was not significant.? Minor irregularities in the circumflex and right coronary arteries and left main was normal. Airway Mallampati Class: II TM Dist: >3cm Neck ROM: Full Loose/Missing/Broken Teeth: Yes (Missing tooth bottom left) Heart: RRR Lungs: CTAB Assessment and Plan Assessment Anesthesia Assessment: Anesthesia Plan Discussed Final Anesthetic Review Family History of Problems with Anesthesia: No History of Problems with Anesthesia: No NPO: Yes ASA Class: III Final Preanesthetic Review: No Changes in Pt Med Stat, Meds/Allgs Chart Reviewed, Consent Obtained/Reviewed and Anes Risks/Benef Reviewed Patient Risk: Intermediate Procedure Risk: Low Assessment/Block/Sedation in SS: Assess/Block/Sedation-SS Anesthetic Plan Anesthetic Plan: GA and MAC: Disposition: Standard PACU
[2022-10-11] VITALS (7 sets, daily range): BP systolic 120–162; BP diastolic 62–89; PULSE 52–94; RESP 14–18; TEMP 36.1–36.6; O2SAT 94–98; BMI 43.6
[2022-10-11] MEDS: Lactated Ringers 1,000 ML 100 ML IVCONT (12:59)
[2022-10-11 13:12] LABS: Glucose, Whole Blood 159 mg/dL (60-115)
--- NOTE | 2022-10-11 14:09 | P.OP_ITS ---
Operative Note Operative Note Date of Service: 10/11/22 Narrative: Procedure: Esophagogastroduodenoscopy Endoscopist: Jacklyn Rivas MD Indication: Dysphagia Anesthesia Provider: Maribel Lockhart CRNA Anesthesia Type: GEA ?? EGD Procedure:?? The procedure, indications, preparation and potential complications were rev iewed with the patient, who indicated understanding and gave written informed consent to proceed. A physical exam was performed. The patient was electively intubated for airway protection the anesthesiologist. The endoscope was introduced through the mouth, and advanced to the second part of duodenum. The mucosa was carefully examined on slow withdrawal of the endoscope. The patient tolerated the procedure well. There were no immediate complications.? ? EGD Findings:? * Larynx: Small pale nodule on epiglottis * Esophagus:? Normal mucosa noted in the entire esophagus. The Z line was at 46 cm. No obvious narrowing or stricture was noted. Middle and lower esophagus forceps biopsies were obtained to rule out eosinophilic esophagitis. * Stomach:? Normal mucosa was noted in the stomach. * Duodenum:? Normal mucosa was noted in the whole of the examined duodenum. Additional interventions: A Soft tipped Savary wire was introduced through the biopsy channel and advanced to the antrum. Esophagus was incrementally dilated from 17-18 mm without any resistance. On relook, no tear or heme was noted. ? EGD Impressions:? * Normal esophagus (biopsy, dilation) * Normal stomach * Normal duodenum ?? Recommendations:?? * Follow biopsy results. Our office will call or send a letter with results with in 7-10 days. * If negative for eosinophilic esophagitis, consider testing for alpha gal syndrome as sx are mostly with red meat. * Barium swallow pending * Consider ENT referral for incidental nodule seen on epiglottis * Avoid NSAIDs.
== END 2022-10-11 15:28 | disposition home or self-care (01) ==
PROVIDERS: PCP Nurse Practitioner Family; Visit Provider Internal Medicine
PROC: 0DJ08ZZ Inspection of Upper Intestinal Tract, Via Natural or Artificial Opening Endoscopic (ICD-10-PCS; CPT 43235; principal; 2022-10-11 14:10)
DX: K22.9 Disease of esophagus, unspecified (principal); R13.10 Dysphagia, unspecified; K21.9 Gastro-esophageal reflux disease without esophagitis; E11.9 Type 2 diabetes mellitus without complications; I10 Essential (primary) hypertension; D64.9 Anemia, unspecified; F12.90 Cannabis use, unspecified, uncomplicated; E66.9 Obesity, unspecified; Z68.41 Body mass index [BMI] 40.0-44.9, adult; G47.33 Obstructive sleep apnea (adult) (pediatric); Z99.89 Dependence on other enabling machines and devices; Z87.891 Personal history of nicotine dependence; Z79.82 Long term (current) use of aspirin; Z79.60 Long term (current) use of unspecified immunomodulators and immunosuppressants; Z79.891 Long term (current) use of opiate analgesic; Z79.899 Other long term (current) drug therapy
CPT/HCPCS: 43239; 43249; 82947; 88305; C1769; J0330

== ENCOUNTER → 2022-10-11 12:28 | Outpatient (BNV) | payer OTHER, SELFPAY | PROVIDERS: PCP Nurse Practitioner Family; Visit Provider Internal Medicine | DX: R13.10 Dysphagia, unspecified (principal) | CPT/HCPCS: 43239; 43248 ==

== ENCOUNTER 2022-10-16 09:26 | Outpatient (AMB) | payer OTHER, SELFPAY ==
[2022-10-16 09:36] VITALS: BP 147/90; PULSE 70; RESP 14; BMI 42.1
--- NOTE | 2022-10-16 09:36 | A.OFFVIS_ITS ---
Intake Vital Signs 10/16/22 09:36 Height 5 ft 9 in Weight 285 lb BMI 42.1 BP 147/90 H Blood Pressure Location Lt brachial Position Sitting Respiration 14 Pulse 70 Pulse Source Pulse Oximeter Intake Visit Reasons: Left subacromial bursa injection Allergies methadone Allergy (Intermediate, Verified 10/03/22 11:58) Vomiting ibuprofen [From MOTRIN] Adverse Reaction (Severe, Verified 10/03/22 11:58) ANAPHYLAXIS NSAID Adverse Reaction (Severe, Uncoded 08/10/22 11:25) Anaphylaxis HPI Left subacromial bursa injection HPI Details 67-year-old male presenting today for a left subacromial bursa injection. The patient was referred by LOUIS Aden. Denies any recent cough, cold, infection, fever or other significant changes in medical history since last office visit. 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 Morbid obesity Obesity (BMI 30-39.9) Osteopenia Painful total knee replacement, right Seronegative rheumatoid arthritis Type 2 diabetes mellitus with peripheral neuropathy Vitamin D deficiency Surgical History H/O colonoscopy History of back surgery History of knee replacement procedure of left knee History of knee replacement procedure of right knee Hx of cardiac cath Hx of coronary angiogram Family History Father Angina pectoris Mother Stroke Social History Household Members: Spouse Housing: House Are you a primary infant caregiver to a significant other at home: No Do you presently have visiting nurse or other home services: No 75 years or older and lives alone: No Alcohol intake: current Alcohol intake frequency: holidays/special occasions only Alcohol type: beer and hard liquor Patient Tobacco Use Status: Former Tobacco user Quit Date: 1998 Years Smoked: 20 years ago e-Cigarette/Vaping Use: Never Used Second Hand Smoke Exposure: No Substance Use Type: Marijuana service: No Current occupational status: retired Cognitive needs: No Hearing needs: No Vision needs: No Review of Systems Const All systems reviewed & are unremarkable except as noted in HPI and below Physical Exam Vital Signs: Last Vital Signs Pulse 70 10/16/22 09:36 Resp 14 10/16/22 09:36 BP 147/90 H 10/16/22 09:36 BMI result Body Mass Index 42.1 General: Appears afebrile. Alert and oriented. Mood and affect appropriate. Follows and participates in conversation appropriately. Respiratory effort is unlabored. Able to transition from sit to stand unassisted. Ambulates with bilaterally normal heel strike and toe off. Office Procedures Joint Injection/Drain Joint Injection/Drain Details: Left subacromial bursa injection. Primary Site: left shoulder Prep: site was prepped using aseptic technique and site was prepped using sterile technique Injected: 40 mg of, Kenalog, with 3 mL of, 0.25% bupivacaine and in the subcromial space (on left side) Approach Used: posterolateral Procedure: The patient tolerated the procedure well Coding 53015 - Acromioclavicular with ultrasound guidance Procedure code (CPT) selection complete Results Reviewed Results Reviewed: No imaging is available for review. Assessment & Plan Assessment & Plan (1) Subacromial bursitis of left shoulder joint: Code(s): M75.52 - Bursitis of left shoulder Plan Patient is status post left subacromial bursa injection. Patient tolerated procedure well and was discharged home in stable condition with discharge instructions. All questions were answered. We will follow-up in two weeks via telephone or in clinic to assess response to therapy. A follow-up appointment was made during today's visit. Scribed for Dr. Mead by Jan Up, medical information officer, on 10/16/2022. I, Dr. Mead, have personally reviewed and agree with the information entered by the scribe. Coding Level of Care Code Procedure Only Diagnoses Subacromial bursitis of left shoulder joint M75.52 CPT Codes Coding - Joint 6: 62817 - Acromioclavicular with ultrasound guidance ([id number])
== END 2022-10-16 09:54 | disposition home or self-care (01) ==
PROVIDERS: PCP Nurse Practitioner Family; Visit Provider Internal Medicine
DX: M75.52 Bursitis of left shoulder (principal)
CPT/HCPCS: 20610

== ENCOUNTER → 2022-10-16 09:26 | Outpatient (BNVA) | payer OTHER, SELFPAY | PROVIDERS: PCP Nurse Practitioner Family; Visit Provider Internal Medicine | DX: M75.52 Bursitis of left shoulder (principal); M35.3 Polymyalgia rheumatica; Z79.899 Other long term (current) drug therapy | CPT/HCPCS: 20606; 20610; J3301 ==

== ENCOUNTER 2022-10-18 13:25 | Outpatient (AMB) | payer OTHER, SELFPAY ==
--- NOTE | 2022-10-18 14:04 | MHC.OFFVIS ---
Intake Intake Visit Reasons: cysto Intake Note: Patient is present for Cystoscopy Urology Med: Oxybutynin, Tamsulosin Antibiotic Allergy: None Blood Thinner: Aspirin Pharmacy: [email or web address] Disposable Cystoscope used during Procedure LOT#: [id number] EXP: 07/24/2024 Allergies methadone Allergy (Intermediate, Verified 10/18/22 14:07) Vomiting ibuprofen [From MOTRIN] Adverse Reaction (Severe, Verified 10/18/22 14:07) ANAPHYLAXIS NSAID Adverse Reaction (Severe, Uncoded 10/18/22 14:07) Anaphylaxis HPI HPI Comments History of Present Illness Details Lino is a pleasant male. He is a patient of Dr. Modesto duenas. He seen for the following urologic conditions - lower urinary tract symptoms - detrusor hyperactivity Cystoscopy today Grade 2 trabeculation. Incomplete bladder emptying. Trial evening bethanechol to assist bladder emptying Good response to combination oxybutynin tamsulosin Recommend pelvic floor exercise for leakage Lower urinary tract symptoms Good response to urgency with oxybutynin Detrusor hyperactivity with impaired contractility - good stabilization with oxybutynin, and bethanechol Cystoscopy 10/2523 grade 2 trabeculation PFSH Medical History Adrenal 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 Arterial insufficiency Atherosclerotic cardiovascular disease Diabetes mellitus due to underlying condition with diabetic neuropathy, without long-term current use of insulin Diabetes type 2, controlled 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 Morbid obesity Obesity (BMI 30-39.9) Osteopenia Painful total knee replacement, right Seronegative rheumatoid arthritis Type 2 diabetes mellitus with peripheral neuropathy Vitamin D deficiency Surgical History H/O colonoscopy History of back surgery History of knee replacement procedure of left knee History of knee replacement procedure of right knee Hx of cardiac cath Hx of coronary angiogram Family History Father Angina pectoris Mother Stroke Social History Household Members: Spouse Housing: House Are you a primary manager intensive care unit to a significant other at home: No Do you presently have visiting nurse or other home services: No 75 years or older and lives alone: No Alcohol intake: current Alcohol intake frequency: holidays/special occasions only Alcohol type: beer and hard liquor Patient Tobacco Use Status: Former Tobacco user Quit Date: 1998 Years Smoked: 20 years ago e-Cigarette/Vaping Use: Never Used Second Hand Smoke Exposure: No Substance Use Type: Marijuana service: No Current occupational status: retired Cognitive needs: No Hearing needs: No Vision needs: No Review of Systems Const Denies chills and Denies fever(s) Card Reports no additional complaints and Denies syncope Resp Denies cough GI Denies abdominal pain and Denies heartburn Reports as per HPI and Denies change in libido Neuro Denies syncope Psych Denies change in libido Endo Denies change in libido Physical Exam Const General: cooperative, healthy appearing, comfortable and no acute distress Orientation/consciousness: patient oriented x3 HEENT Face and sinus: Yes normal facial exam Mouth: moist mucous membranes Neck Neck: Yes normal visual inspection, Yes full ROM and Yes trachea midline Chest Chest palpation & inspection: normal inspection of the chest Resp Effort & Inspection: normal respiratory effort, able to speak in complete sentences and no respiratory distress GI Inspection: Yes normal to inspection Back/Spine/Pelvis Cervical Spine: normal cervical lordosis Thoracic/Lumbar Spine: thoracic and lumbar spine normal to inspection Skin General skin exam: no rashes or lesions noted Neuro General: patient oriented x3, gait normal, tone normal and moves all extremities Extrem General: Yes normal to inspection and Yes capillary refill normal Office Procedures Cystoscopy Consent Discussed risk and benefit or proposed procedure with the patient. Information consent for procedure given to the patient. Discussed technical aspects, risks, benefits and alternatives in full. Addressed all of the patient's questions and concerns regarding the procedure. The patient demonstrated knowledge and understanding. They wish to proceed with this procedure. Preparation The patient was prepped in the usual manner. A professional sports scout was present and in the room. Genitalia was prepped with betadine solution in a sterile manner. Lidocaine Jelly 2% was placed into the urethra and 16Fr flexible Olympus cystoscope was inserted into the meatus after adequate lubrication. Procedure Meatus circumcised Urethra anterior posterior urethra normal Prostatic Urethra unremarkable Bladder examination with retroflexion of cystoscope Bladder Orifices normal shape and position Bladder Capacity medium Trabeculations grade 2 trabeculation Cellule Formation - Diverticulum Formation - Mucosal Erythema - Bladder Tumor - 15682-[id number] DISPOSABLE SCOPE URO-G FLEXIBLE SCOPE Procedure code (CPT) selection complete Office Meds lidocaine HCl Performing Provider: Bishop Uribe MD Administered by: FELIPA Martino on 10/18/22 14:18 Dose Route Admin Location Lot Number Expiration Date [place] Hvac Project Engineer 10 mL intra-urethral Comments: Administered by Dr Uribe nitrofurantoin monohyd/m-cryst 100 mg Performing Provider: Bishop Uribe MD Administered by: FELIPA Martino on 10/18/22 14:18 Dose Route Admin Location Lot Number Expiration Date [place] Hvac Project Engineer 100 mg PO Comments: Administered by Dr Uribe Results AMB Urinalysis, Automated UA Leukoctes 0 Eddie/uL Last Edit by FELIPA Martino on 10/18/22 14:14 UA Nitrite Negative Last Edit by Raquel Onofre A on 10/18/22 14:14 UA Urobilinogen 0.2 mg/dL Last Edit by Raquel Onofre A on 10/18/22 14:14 UA Protein 15 mg/dL Last Edit by Raquel Onofre [facility] on 10/18/22 14:14 UA pH 5.5 Last Edit by Raquel Onofre A on 10/18/22 14:14 UA Blood 0 Jason/uL Last Edit by Raquel Onofre [facility] on 10/18/22 14:14 UA Specific [place] 1.025 Last Edit by Raquel Onofre A on 10/18/22 14:14 UA Ketone Negative Last Edit by Raquel Onofre [facility] on 10/18/22 14:14 UA Bilirubin 0 mg/dL Last Edit by Raquel Onofre [facility] on 10/18/22 14:14 UA Glucose 15 mg/dL Last Edit by Raquel Onofre [facility] on 10/18/22 14:14 Results Reviewed Results Reviewed: Laboratory Last Values Urine pH (Auto) 5.5 10/18/22 14:08 Specific [place] (Auto) 1.025 10/18/22 14:08 Urine Protein (Auto) 15 mg/dL 10/18/22 14:08 Glucose (UA)(Auto) 15 mg/dL 10/18/22 14:08 Urine Ketones (Auto) Negative 10/18/22 14:08 Urine Blood (Auto) 0 Jason/uL 10/18/22 14:08 Urine Nitrite (Auto) Negative 10/18/22 14:08 Urine Bilirubin (Auto) 0 mg/dL 10/18/22 14:08 Urine Urobilinogen (Auto) 0.2 mg/dL 10/18/22 14:08 Leukocyte Esterase (Auto) 0 Eddie/uL 10/18/22 14:08 Assessment & Plan Assessment & Plan (1) Diabetes mellitus due to underlying condition with diabetic neuropathy, without long-term current use of insulin: Code(s): E08.40 - Diabetes mellitus due to underlying condition with diabetic neuropathy, unspecified (2) OAB (overactive bladder): Code(s): N32.81 - Overactive bladder (3) Incomplete bladder emptying: Code(s): R33.9 - Retention of urine, unspecified Plan Bethanechol trial Orders: Orders AMB Cystoscopy Today N40.1 - Benign prostatic hyperplasia with lower urinary tract symptoms AMB Urinalysis Automated Today Z13.9 - Encounter for screening, unspecified Medications: New bethanechol chloride 50 mg PO BEDTIME 30 tabs 2RF 30 days R33.9 - Retention of urine, unspecified Patient Instructions: Imaging studies, laboratory and physical exam results were discussed and reviewed in detail. No major barriers to patient understanding were identified. An opportunity to ask questions regarding the treatment plan was provided. All questions were answered. The patient expressed understanding and agreement with the above treatment plan. The patient is aware they should contact our office by phone for worsening of their current condition or the appearance of new urologic symptoms. Compliance is encouraged with any medications and followup testing that is ordered. It is a privilege to participate in the urologic care of your patient. If you have any questions or concerns regarding treatment for the above conditions, or other urologic issues, please do not hesitate to contact me. The office telephone contact is [phone]. This note is constructed using voice recognition software. While every effort has been made to ensure accuracy office system analyst errors may have been included. Yours sincerely, Dr Bishop Uribe MD, [facility] - Urology Providers of Expert, Compassionate Care for the Genitourinary System Coding Level of Care Code Est Pt Level 4 (73499) Diagnoses Diabetes mellitus due to underlying condition with diabetic neuropathy, without long-term current use of insulin E08.40 OAB (overactive bladder) N32.81 Incomplete bladder emptying R33.9 CPT Codes Cystoscopy - CPT: 77722-[id number] ([id number]) Cystoscopy - CPT: DISPOSABLE SCOPE URO-G FLEXIBLE SCOPE ([id number])
== END 2022-10-18 14:48 | disposition home or self-care (01) ==
PROVIDERS: Visit Provider Urology
DX: N32.81 Overactive bladder (principal); E08.40 Diabetes mellitus due to underlying condition with diabetic neuropathy, unspecified; R33.9 Retention of urine, unspecified; N40.1 Benign prostatic hyperplasia with lower urinary tract symptoms
CPT/HCPCS: 52000

== ENCOUNTER → 2022-10-18 13:25 | Outpatient (BNVA) | payer OTHER, SELFPAY | PROVIDERS: Visit Provider Urology | DX: R33.9 Retention of urine, unspecified (principal); E08.40 Diabetes mellitus due to underlying condition with diabetic neuropathy, unspecified; N32.81 Overactive bladder | CPT/HCPCS: 52000; 81003; C1747 ==

== ENCOUNTER 2022-10-19 08:42 | Outpatient (REF) | payer OTHER, SELFPAY ==
[2022-10-19 08:56] LABS: MANUAL DIFF FLAG NO
[2022-10-19 10:03] LABS: Basophils Percent Auto 0.4 % (0-2); Eosinophils Absolute Auto 0.5 X10*3/uL (0.0-0.4); Eosinophils Percent Auto 9.6 % (0-4); Hematocrit 46.4 % (42.0-52.0); Hemoglobin 15.8 g/dl (14.0-18.0); Imm Gran Abs Auto 0.03 X10*3/uL (0.00-0.03); Imm Gran Pct Auto 0.6 % (0.0-0.4); Lymphocytes Percent Auto 20.2 % (20-40); Mean Corpuscular HGB Conc 34.1 g/dl (31.0-36.0); Mean Corpuscular Hemoglobin 34.1 pg (27.0-33.0); Mean Platelet Volume 10.5 fL (9.4-12.4); Monocytes Absolute Auto 0.7 X10*3/uL (0.1-1.2); Monocytes Percent Auto 15.2 % (2-11); Neutrophils Absolute Auto 2.6 x10*3/uL (2.0-8.3); Platelet Count 140 X10*3/uL (160-400); Red Blood Count 4.64 X10*6/uL (4.60-5.80); White Blood Count 4.8 X10*3/uL (4.8-10.8)
[2022-10-19 10:49] LABS: Erythrocyte Sedimentation Rate 1 MM/HR (0-15)
[2022-10-19 11:03] LABS: Alanine Aminotransferase 41 U/L (0-40); Aspartate Amino Transferase 20 U/L (5-37); C Reactive Protein < 0.10 mg/dL (< or = 0.50); Estimated Glomerular Filt Rate > 60
== END 2022-10-19 08:43 | disposition home or self-care (01) ==
LOC: HO.LAB 08:42
PROVIDERS: PCP Nurse Practitioner Family; Visit Provider Internal Medicine Rheumatology
DX: M35.3 Polymyalgia rheumatica (principal); Z79.899 Other long term (current) drug therapy
CPT/HCPCS: 36415; 82565; 84450; 84460; 85025; 85652; 86140

== ENCOUNTER 2022-10-23 10:52 | Outpatient (AMB) | payer OTHER, SELFPAY ==
--- NOTE | 2022-10-23 10:56 | A.OFFVIS_ITS ---
Intake Vital Signs 10/23/22 11:09 Height 5 ft 9 in Weight 280 lb BMI 41.3 BP 141/82 H Blood Pressure Location Lt brachial Position Sitting Pulse 62 Intake Visit Reasons: S/p egd- Rob Intake Note: Patient follow up for EGD results. Patient denies any GI issues. Semaphore Operator Required: No Accompanied by: Self / Same As Patient Allergies methadone Allergy (Intermediate, Verified 10/23/22 11:07) Vomiting ibuprofen [From MOTRIN] Adverse Reaction (Severe, Verified 10/23/22 11:07) ANAPHYLAXIS NSAID Adverse Reaction (Severe, Uncoded 10/18/22 14:07) Anaphylaxis Medication List - Last Reconciled 10/23/22 by Chiara Carson PA-C acetaminophen-codeine 300-30 mg 1 tab PO QID PRN 30 days amoxicillin 2,000 mg (4 x 500 mg) PO ONCE 1 day aspirin 81 mg PO DAILY bethanechol chloride 50 mg PO BEDTIME 30 days blood sugar diagnostic (FreeStyle Lite Strips) 1 strip miscellaneous DAILY 30 days capsaicin-skin cleanser 8 % (Qutenza) apply up to 4 (four) CAPSAICIN PATCHES to affected area; remove patch(es) after 30-60 minutes and apply SKIN CLEANSER gel as directed topical cholecalciferol (vitamin D3) 50 mcg PO DAILY 90 days CPAP Machine/Device (CPAP) use daily NS diclofenac sodium 1% 4 grams topical QID PRN epinephrine (EpiPen) 0.3 mg (0.3 mL) IM Q10M PRN famotidine (Pepcid) 20 mg PO BID PRN folic acid 1 mg PO DAILY ketoconazole 2% topical 2XW lancets (FreeStyle Lancets) 1 gauge topical DAILY 90 days metformin ER 500 mg PO BID 90 days methotrexate sodium 25 mg (10 x 2.5 mg) PO QWEEK metoprolol succinate ER 25 mg PO DAILY naloxone 4 mg/actuation (Narcan) 4 mg intranasal Q2M PRN olopatadine 0.1% 0 drps ophthalmic (eye) omeprazole 20 mg PO BID oxybutynin chloride ER 10 mg PO DAILY Pepcid (famotidine) 20 mg PO BID PRN NS pravastatin 40 mg PO DAILY prednisone take 4 tab in AM and 2 tab in PM daily ropinirole 0.5 mg PO BEDTIME sarilumab (Kevzara) 200 mg (1.14 mL) subcut Q2W tamsulosin 0.4 mg PO BID venlafaxine ER 150 mg PO DAILY 90 days HPI HPI Comments History of Present Illness Details A 67-year-old male follows up after recent EGD for dysphagia. He is accompanied by his . His says issues probably are because he eats fast, has kind of been an issue ongoing Patient states he tolerated procedure well however few days after he did have a lot of gas however symptoms have completely resolved. He has not had any difficulty swallowing. He has no GI complaints today. 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 Morbid obesity Obesity (BMI 30-39.9) Osteopenia Painful total knee replacement, right Seronegative rheumatoid arthritis Type 2 diabetes mellitus with peripheral neuropathy Vitamin D deficiency Surgical History H/O colonoscopy History of back surgery History of esophagogastroduodenoscopy (EGD) History of knee replacement procedure of left knee History of knee replacement procedure of right knee Hx of cardiac cath Hx of coronary angiogram Family History Father Angina pectoris Mother Stroke Social History Household Members: Spouse Housing: House Are you a primary ambulatory care to a significant other at home: No Do you presently have visiting nurse or other home services: No 75 years or older and lives alone: No Alcohol intake: current Alcohol intake frequency: holidays/special occasions only Alcohol type: beer and hard liquor Patient Tobacco Use Status: Former Tobacco user Quit Date: 1998 Years Smoked: 20 years ago e-Cigarette/Vaping Use: Never Used Second Hand Smoke Exposure: No Substance Use Type: Marijuana service: No Current occupational status: retired Cognitive needs: No Hearing needs: No Vision needs: No Review of Systems Const All systems reviewed & are unremarkable except as noted in HPI and below ENT Denies dysphagia Card Denies chest pain and Denies dyspnea Resp Denies dyspnea GI Denies abdominal pain, Denies hematochezia, Denies change in bowel habits, Denies dysphagia, Denies dyspepsia, Denies heartburn, Denies diarrhea, Denies nausea and Denies vomiting Physical Exam Vital Signs: Last Vital Signs Pulse 62 10/23/22 11:09 BP 141/82 H 10/23/22 11:09 BMI result Body Mass Index 41.3 Const General: cooperative and healthy appearing Nutritional Appearance: obese Orientation/consciousness: patient oriented x3 Limitations: no limitations Eyes Sclerae: sclerae normal Resp Effort & Inspection: normal respiratory effort and able to speak in complete sentences Neuro General: patient oriented x3 Extrem General: Yes full ROM Psych Speech and movement: Normal speech and movement present and Clear speech present Affect: normal affect Attitude: cooperative Thought process: Normal thought process present Thought content: Normal thought content present Insight: Good insight present (Psych) Judgement: Good judgement present (Psych) Results Reviewed Results Reviewed: EGD Impressions:? * Normal esophagus (biopsy, dilation) * Normal stomach * Normal duodenum?? Recommendations:?? * Follow biopsy results. Our office will call or send a letter with results within 7-10 days. * If negative for eosinophilic esophagitis, consider testing for alpha gal syndrome as sx are mostly with red meat. * Barium swallow pending * Consider ENT referral for incidental nodule seen on epiglottis * Avoid NSAIDs. * * Name:?Lino Nayak Age/Sex: 67/MAttending: Jacklyn Rivas MD : 1955Submitted by: Jacklyn Rivas MD to: Jas Casarez [facility] MR #: [id number]? Status: DEP SDCCollected: 10/11/22 [facility]: [facility] Diagnosis A.? Esophagus, lower, biopsy:? Squamous mucosa with no specific change; no columnar mucosa present; no evidence of eosinophilic esophagitis.? B.? Esophagus, middle, biopsy:? Squamous mucosa with no specific change; no columnar mucosa present; no evidence of eosinophilic esophagitis.? Clinical History Pre-Op Dx:? Dysphagia Post-Op Dx: Nodule epiglottis Assessment & Plan Assessment & Plan (1) Disorder of epiglottis: Comment: will call after 03/2023 to schedule screening colon- Code(s): J38.7 - Other diseases of larynx Plan: ENT referral placed- Pt agrees (2) Dysphagia: Comment: EGD with dilation, no further dysphagia-no issues with solids or liquids No heartburn, not using H2 jordan or PPI Code(s): R13.10 - Dysphagia, unspecified Plan: Monitor for any change in symptoms Plan Continue to monitor for any change in symptoms any further dysphagia he will notify us ENT referral placed Will be due for screening colonoscopy Orders: Referrals Ear/Nose/Throat Referral J38.7 - Other diseases of larynx Patient Instructions: Pleasant 67-year-old Gent seeing after EGD for dysphagia-reviewed procedure report and pathology EGD with dilation he has had no further dysphagia-encouraged to eat slower ENT referral for nodule on epiglottis Reviewed reflux precautions however he denies any symptoms he has discontinued PPI as well as H2 jordan Coding Level of Care Code Est Pt Level 3 (52628) Diagnoses Disorder of epiglottis J38.7 Dysphagia R13.10 Time Spent (min) 30
[2022-10-23 11:09] VITALS: BP 141/82; PULSE 62; BMI 41.3
== END 2022-10-23 12:08 | disposition home or self-care (01) ==
PROVIDERS: PCP Nurse Practitioner Family; Visit Provider Physician Assistant
DX: J38.7 Other diseases of larynx (principal); R13.10 Dysphagia, unspecified
CPT/HCPCS: 99213

== ENCOUNTER → 2022-10-23 10:52 | Outpatient (BNVA) | payer OTHER, SELFPAY | PROVIDERS: PCP Nurse Practitioner Family; Visit Provider Physician Assistant | DX: R13.10 Dysphagia, unspecified (principal); J38.7 Other diseases of larynx | CPT/HCPCS: 99212 ==

== ENCOUNTER 2022-10-25 10:25 | Outpatient (AMB) | payer OTHER, SELFPAY ==
--- NOTE | 2022-10-25 10:35 | MHC.OFFVIS ---
Intake Vital Signs 10/25/22 10:36 Height 5 ft 9 in Weight 286 lb 13.142 oz BMI 42.4 BP 148/84 H Blood Pressure Location Lt brachial Position Sitting Pulse 69 Pulse Source Pulse Oximeter Temp 97.4 F Temp Source Skin Pulse Oximetry (%) 96 Oxygen Delivery Method Room Air Intake Visit Reasons: PMR Intake Note: Here for PMR follow up. Portable Irrigation Operator Required: No Accompanied by: Spouse Allergies methadone Allergy (Intermediate, Verified 10/25/22 10:42) Vomiting ibuprofen [From MOTRIN] Adverse Reaction (Severe, Verified 10/25/22 10:42) ANAPHYLAXIS NSAID Adverse Reaction (Severe, Uncoded 10/25/22 10:42) Anaphylaxis HPI HPI Comments History of Present Illness Details The patient presents with his for evaluation of his PMR. We had started him on Kevzara 200 mg every 2 weeks. He has taken about 4 doses so far. There have been no adverse effects. He remains on 25 mg weekly methotrexate, folic acid 1 mg daily, prednisone 10 mg in the morning and 5 mg in the afternoon. He says he feels pretty good in terms of his muscle and bone pains. He did do some home repairs this past week spending 9 hours each day working on a floor. That resulted in some increased muscle pain. He does not have any headache, jaw claudication or visual disturbance. He did have a left shoulder injection for tendinitis a few weeks ago and that has improved. He did see urology about frequent urination and is on another medicine for his bladder, bethanecol. 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 Morbid obesity Obesity (BMI 30-39.9) Osteopenia Painful total knee replacement, right Seronegative rheumatoid arthritis Type 2 diabetes mellitus with peripheral neuropathy Vitamin D deficiency Surgical History H/O colonoscopy History of back surgery History of esophagogastroduodenoscopy (EGD) History of knee replacement procedure of left knee History of knee replacement procedure of right knee Hx of cardiac cath Hx of coronary angiogram Family History Father Angina pectoris Mother Stroke Social History Household Members: Spouse Housing: House Are you a primary adult care provider to a significant other at home: No Do you presently have visiting nurse or other home services: No 75 years or older and lives alone: No Alcohol intake: current Alcohol intake frequency: holidays/special occasions only Alcohol type: beer and hard liquor Patient Tobacco Use Status: Former Tobacco user Quit Date: 1998 Years Smoked: 20 years ago e-Cigarette/Vaping Use: Never Used Second Hand Smoke Exposure: No Substance Use Type: Marijuana service: No Current occupational status: retired Cognitive needs: No Hearing needs: No Vision needs: No Review of Systems Const Details: Negative for appetite change, weight change, fever, chills, malaise and fatigue Eyes Details: Negative for vision change, dry eyes,headaches and dizziness ENT Details: Negative for hearing change, tinnitus, oral ulcer, nose bleeds and oral dryness. Card Details: Negative chest pain, edema and syncope Resp Details: Negative for SOB, cough and wheezing GI Details: He recently had some dilation of his esophagus because of some dysphagia. That did improve his symptoms. Negative indigestion/heartburn, nausea, abdominal pain, bowel changes, diarrhea, constipation and bloody stool. Details: Urinary frequency is a bit less bothersome with recent addition of medications. Negative for dysuria, hematuria, nocturia, decreased force/flow and genital discharge Skin/Breast Details: Negative for itching, rash, hives, Raynaud's symptoms, sun sensitivity, and skin cancer Endo Details: Negative for polyuria and polydypsia Memo/Lymph Details: Negative for excessive bruising or bleeding. Physical Exam Vital Signs: Last Vital Signs Temp 97.4 F 10/25/22 10:36 Pulse 69 10/25/22 10:36 BP 148/84 H 10/25/22 10:36 Pulse Ox 96 10/25/22 10:36 Oxygen Delivery Method Room Air 10/25/22 10:36 BMI result Body Mass Index 42.4 APPEARANCE: Patient in no acute distress EYES no redness, pupils equal and reactive to light, eyelids normal; no temporal artery tenderness, redness or swelling. EXTREMITIES:? no?edema.?no calf tenderness JOINT EXAM: Cervical Spine:.? Full range of motion without pain; no tenderness. Thoracic Spine:.? No scoliosis.? No tenderness on palpation. Lumbar Spine:.? Alignment normal.? Slight pain with flexion of 60 degrees.? There is no paraspinal muscle tenderness. Chest Wall:.? No tenderness, swelling, increased warmth or erythema. Hands:.? Both hands have moderate bony enlargement at the thumb IP and in all the PIP joints.? Today the PIP are not tender.? There is also no? soft tissue swelling, redness or warmth.? There is also nontender bony enlargement at the 2nd through 5th DIP? bilaterally.? There is no thenar atrophy or sensory loss.? Normal pain-free range of motion without soft tissue swelling, increased warmth or erythema. Wrists:.? pain-free range of motion with flexion extension to about 60 degrees.? There is no tenderness, swelling, increased warmth or erythema. Elbows:. Normal pain-free range of motion without tenderness, swelling, increased warmth or erythema. Shoulders:.? Right:? Slight discomfort with extremes of range of motion and some minimal anterior tenderness.? No abductor weakness or adenopathy.? Left:? Full range of motion with no discomfort at the extremes.? No tenderness, weakness, swelling, increased warmth or erythema. Hips:.? Full range of motion with some lumbar pain at the extremes of normal internal external rotation.? No groin pain with motion.. Hip bursa:.? Bilateral trochanteric tenderness. Knees:.?? Normal pain-free range of motion with evidence for well-healed anterior scars from his knee replacements.? No tenderness, swelling, increased warmth or erythema.? Ankles:.? Normal pain-free range of motion without tenderness, swelling, increased warmth or erythema. Feet:.? There is mild bony enlargement at the 1st MTP joints bilaterally.? The right is slightly tender.? There is also some bony prominence over the dorsum of the feet in the instep regions.? This is mildly tender on the left.? However I do not see any soft tissue swelling, redness or warmth.? There is decreased sensation over the soles of the feet and the toes.? No breaks in the skin. Tender points: Slight tenderness to digital palpation at the trapezius, greater trochanter area bilaterally. ? ? 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 Acute phase reactants remain normal. Now that he has been on the Actemra for a couple of months we could attempt another taper of the prednisone. He will cut down to 12.5 mg in the morning and 5 mg in the evening for one week and then 10 mg the morning and 5 mg in the evening for a week then 2 weeks later go to 7.5 mg in the morning and 5 mg in the evening. I told in if those tapers go okay he could go to 5 mg twice a day two weeks after the 7.5 mg dose has started. We will recheck his liver enzymes before his next visit as he had some elevation of the transaminase. This could have been due to the methotrexate so we will have to keep an eye on that. I told him that as he tapers the prednisone he may feel some fatigue and decreased stamina but that would not be a reason to push the dose of prednisone dose higher. We will aim for follow-up in 2 months. Review his recent medical evaluation, today's history, today's exam and treatment planning took 32 minutes. Orders: Orders Alanine Aminotransferase Today M35.3 - Polymyalgia rheumatica, Z79.899 - Other prison (current) drug therapy Aspartate Amino Transferase Today M35.3 - Polymyalgia rheumatica, Z79.899 - Other voice over artist (current) drug therapy Creatinine Today M35.3 - Polymyalgia rheumatica, Z79.899 - Other prison (current) drug therapy C Reactive Protein Today M35.3 - Polymyalgia rheumatica Complete Blood Count Auto Diff Today M35.3 - Polymyalgia rheumatica, Z79.899 - Other voice over artist (current) drug therapy Erythrocyte Sedimentation Rate Today M35.3 - Polymyalgia rheumatica Coding Level of Care Code Est Pt Level 4 (37964) Diagnoses Osteoarthritis of hands, bilateral M19.041; M19.042 Other spondylosis with radiculopathy, lumbar region M47.26 clothes marker 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
[2022-10-25 10:36] VITALS: BP 148/84; PULSE 69; TEMP 36.3; O2SAT 96; BMI 42.4
== END 2022-10-25 11:23 | disposition home or self-care (01) ==
PROVIDERS: PCP Nurse Practitioner Family; Visit Provider Internal Medicine Rheumatology
DX: M19.041 Primary osteoarthritis, right hand (principal); M19.042 Primary osteoarthritis, left hand; M47.26 Other spondylosis with radiculopathy, lumbar region; Z79.899 Other long term (current) drug therapy; M35.3 Polymyalgia rheumatica
CPT/HCPCS: 99214

== ENCOUNTER → 2022-10-25 10:25 | Outpatient (BNVA) | payer OTHER, SELFPAY | PROVIDERS: PCP Nurse Practitioner Family; Visit Provider Internal Medicine Rheumatology | DX: M19.041 Primary osteoarthritis, right hand (principal); M19.042 Primary osteoarthritis, left hand; M47.26 Other spondylosis with radiculopathy, lumbar region; M35.3 Polymyalgia rheumatica; Z79.899 Other long term (current) drug therapy | CPT/HCPCS: 99212 ==

== ENCOUNTER 2022-11-07 08:56 | Outpatient (AMB) | payer OTHER, SELFPAY ==
--- NOTE | 2022-11-07 08:58 | MHC.OFFVIS ---
Intake Vital Signs 11/07/22 09:11 Height 5 ft 9 in Weight 286 lb 4 oz BMI 42.3 BP 157/78 H Blood Pressure Location Lt brachial Position Sitting Pulse 66 Pulse Source Pulse Oximeter Pulse Oximetry (%) 97 Oxygen Delivery Method Room Air Intake Visit Reasons: Pill count/F.U. Left shoulder injection Intake Note: Lino comes in today for a pill count to acetaminophen-cod #3. Patient should have 92 tablets and presents with 130 tablets, 120 from this script plus 10 from last script. Lino last took 2 days ago sunday11/05/22, pain today 4/10. 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 He is supposed to have #92 pills, in his possession has #130 pills. This demonstrates a responsible attitude in regards to the medication regimen. Patient reports adequate pain relief without noted side effects on his regime of acetaminophen-codeine 300-30 mg 1 tab QID prn and reports using medication only for moderate to severe pain, mostly bilateraly foot pain, left worse than right. Patient denies any back pain or radicular symptoms. He reports seeing Dr. Hernández at [facility] and was told his back ok and previous back surgery was successful. Patient attributes chronic foot pain to neuropathy and is scheduled for another round of Qutenza application on 12/05/22. We also returned briefly to topic of neuromodulation with Nevro SCS trial if patient continues with minimal effects from current treatments. Patient reports he is titrating down on Prednisone per Rheumatology and continues to take Methotrexate 25 mg weekly, folic acid 1 mg daily, prednisone 10 mg daily, and Kevzara 200 mg every 2 weeks without any side effects. Patient also underwent recent left subacromial bursa steroid injection on 10/16/[address] Mead and denies any shoulder pain today. Denies any fever, chills, headache, dyspnea, visual disturbances, constipation, nausea, sedation, dizziness, bowel/bladder dysfunction or saddle anesthesia. 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 Morbid obesity Obesity (BMI 30-39.9) Osteopenia Painful total knee replacement, right Seronegative rheumatoid arthritis Type 2 diabetes mellitus with peripheral neuropathy Vitamin D deficiency Surgical History H/O colonoscopy History of back surgery History of esophagogastroduodenoscopy (EGD) History of knee replacement procedure of left knee History of knee replacement procedure of right knee Hx of cardiac cath Hx of coronary angiogram Family History Father Angina pectoris Mother Stroke Social History Household Members: Spouse Housing: House Are you a primary healthcare management consultant to a significant other at home: No Do you presently have visiting nurse or other home services: No 75 years or older and lives alone: No Alcohol intake: current Alcohol intake frequency: holidays/special occasions only Alcohol type: beer and hard liquor Patient Tobacco Use Status: Former Tobacco user Quit Date: 1998 Years Smoked: 20 years ago e-Cigarette/Vaping Use: Never Used Second Hand Smoke Exposure: No Substance Use Type: Marijuana service: No Current occupational status: retired Cognitive needs: No Hearing needs: No Vision needs: No Review of Systems Const All systems reviewed & are unremarkable except as noted in HPI and below Physical Exam General: Appears afebrile. Alert and oriented. Mood and affect appropriate. Follows and participates in conversation appropriately. Respiratory effort is unlabored. Able to transition from sit to stand unassisted. Neck Neck: Yes full ROM, Yes no lymphadenopathy, Yes supple and No anterior neck swelling Back/Spine/Pelvis Other: Lumbar extension is intact and does not reproduce pain. Flexion reproduces mild pain. Cervical Spine: cervical ROM normal and No Cervical spine tenderness Thoracic/Lumbar Spine: Thoracic/lumbar spine scar(s), Lasegue's sign negative, pain with thoraco-lumbar ROM, thoraco-lumbar ROM limited, No Thoracic/lumbar scoliosis, No thoracic spinal tenderness and No lumbar spinal tenderness Extrem General: Yes capillary refill normal, Yes no clubbing, cyanosis or edema and Yes no pedal edema Psych Appearance: grossly normal Mental Status: mental status grossly normal Speech and movement: Normal speech and movement present and Clear speech present Affect: normal affect Attitude: cooperative Thought process: Normal thought process present Thought content: Normal thought content present, suicidality (none), no hallucinations and No Depressive thoughts present Insight: Good insight present (Psych) Judgement: Good judgement present (Psych) Results Reviewed Results Reviewed: [facility] 02/07/22 EMG and Nerve Conduction study 01/19/22 Assessment & Plan Assessment & Plan (1) Chronic painful diabetic neuropathy: Code(s): E11.40 - Type 2 diabetes mellitus with diabetic neuropathy, unspecified (2) Bilateral foot pain: Code(s): M79.671 - Pain in right foot; M79.672 - Pain in left foot (3) Polymyalgia rheumatica: Code(s): M35.3 - Polymyalgia rheumatica (4) Opioid use agreement exists: Code(s): Z79.891 - long term care phlebotomist (current) use of opiate analgesic (5) Chronic pain syndrome: Code(s): G89.4 - Chronic pain syndrome Plan Patient has shown accountability for his medication regimen and the pill count was accurate. There is no evidence of misuse, abuse or diversion at this time. [employer] reviewed. I will hold off on refilling his opioid medication due to surplus medication today. Patient will call us to let us know when he is down to 10 pills, and I will send a refill at that time. EMLA cream is sent to patient's pharmacy for upcoming Qutenza application on 12/05/22. Script for diclofenac gel provided as well at patient's request. Follow up for a pill count/Qutenza as scheduled and sooner if needed. Medications: New lidocaine-prilocaine 2.5-2.5 % Apply 15-30 min prior to Qutenza application in office 1 appl topical ONCE 1 day 30 grams 1RF neuropathy E11.40 - Type 2 diabetes mellitus with diabetic neuropathy, unspecified Refilled diclofenac sodium 1% 4 grams topical QID PRN 100 grams 3RF for pain M79.671 - Pain in right foot, M79.672 - Pain in left foot Coding Level of Care Code Est Pt Level 4 (42094) Diagnoses Chronic painful diabetic neuropathy E11.40 Bilateral foot pain M79.671; M79.672 Polymyalgia rheumatica M35.3 Opioid use agreement exists Z79.891 Chronic pain syndrome G89.4
[2022-11-07 09:11] VITALS: BP 157/78; PULSE 66; O2SAT 97; BMI 42.3
== END 2022-11-07 09:43 | disposition home or self-care (01) ==
PROVIDERS: PCP Nurse Practitioner Family; Visit Provider Nurse Practitioner Family
DX: E11.40 Type 2 diabetes mellitus with diabetic neuropathy, unspecified (principal); M79.671 Pain in right foot; M79.672 Pain in left foot; M35.3 Polymyalgia rheumatica; Z79.891 Long term (current) use of opiate analgesic; G89.4 Chronic pain syndrome
CPT/HCPCS: 99214

== ENCOUNTER → 2022-11-07 08:56 | Outpatient (BNVA) | payer OTHER, SELFPAY | PROVIDERS: PCP Nurse Practitioner Family; Visit Provider Nurse Practitioner Family | DX: G89.4 Chronic pain syndrome (principal); E11.40 Type 2 diabetes mellitus with diabetic neuropathy, unspecified; M35.3 Polymyalgia rheumatica; Z79.891 Long term (current) use of opiate analgesic | CPT/HCPCS: 99212 ==

== ENCOUNTER 2022-12-05 09:03 | Outpatient (AMB) | payer OTHER, SELFPAY ==
--- NOTE | 2022-12-05 09:04 | MHC.OFFVIS ---
Intake Vital Signs 12/05/22 09:18 12/05/22 09:31 12/05/22 10:17 12/05/22 10:47 Height 5 ft 9 in Weight 287 lb 6 oz BMI 42.4 BP 192/89 H 176/66 H 142/80 H 142/80 H Blood Pressure Location Lt brachial Rt brachial Lt brachial Lt brachial Position Sitting Sitting Sitting Sitting Pulse 56 Pulse Source Pulse Oximeter Pulse Oximetry (%) 97 Oxygen Delivery Method Room Air Comment Manual BP cuff 20 mins after qutenza application Intake Visit Reasons: Qutenza/ Medication Count/Confirmed Intake Note: Lino comes in today for a pill count to acetaminophen-cod #3, patient should have 0 tablets and presents with 19 tablets which he last took today 12/05/22 at 7:30am. Pain today 07/12. Qutenza application to bilateral feet Lot # [id number], exp Mixing Technician Required: No Accompanied by: Spouse Allergies methadone Allergy (Intermediate, Verified 12/05/22 09:17) Vomiting ibuprofen [From MOTRIN] Adverse Reaction (Severe, Verified 12/05/22 09:17) ANAPHYLAXIS NSAID Adverse Reaction (Severe, Uncoded 10/25/22 10:42) Anaphylaxis HPI HPI Comments History of Present Illness Details Patient presents for application of Qutenza (capsaicin 8%) topical patch for his ongoing chronic painful diabetic neuropathy in both of his feet and pill count. Patient is supposed to have #0 pills, in his possession has #19 pills. This demonstrates a responsible attitude in regards to the medication regimen. Patient reports mild to moderate pain relief without noted side effects on his regime of acetaminophen-codeine 300-30 mg 1 tab QID prn and reports using medication only for severe pain. Patient reports increase in his pain levels as his prednisone has been decreased to 2.5 mg BID. Denies any fever, chills, headache, dyspnea, chest pain, shortness of breaths, headaches, visual changes, constipation, nausea, sedation, dizziness, bowel/bladder dysfunction or saddle anesthesia. 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 Seronegative rheumatoid arthritis Obesity (BMI 30-39.9) Vitamin D deficiency Diabetes type 2, controlled Osteopenia Adrenal 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 Painful total knee replacement, right Surgical History History of esophagogastroduodenoscopy (EGD) H/O colonoscopy Hx of coronary angiogram History of back surgery History of knee replacement procedure of right knee History of knee replacement procedure of left knee Hx of cardiac cath Family History Father Angina pectoris Mother Stroke Social History Household Members: Spouse Housing: House Are you a primary home care attendant to a significant other at home: No Do you presently have visiting nurse or other home services: No 75 years or older and lives alone: No Alcohol intake: current Alcohol intake frequency: holidays/special occasions only Alcohol type: beer and hard liquor Patient Tobacco Use Status: Former Tobacco user Quit Date: 1998 Years Smoked: 20 years ago e-Cigarette/Vaping Use: Never Used Second Hand Smoke Exposure: No Substance Use Type: Marijuana service: No Current occupational status: retired Cognitive needs: No Hearing needs: No Vision needs: No Review of Systems Const All systems reviewed & are unremarkable except as noted in HPI and below Physical Exam Vital Signs: Last Vital Signs Pulse 56 12/05/22 09:18 BP 142/80 H 12/05/22 10:47 Pulse Ox 97 12/05/22 09:18 Oxygen Delivery Method Room Air 12/05/22 09:18 BMI result Body Mass Index 42.4 General: Appears afebrile. Alert and oriented. Mood and affect appropriate. Follows and participates in conversation appropriately. Respiratory effort is unlabored. Able to transition from sit to stand unassisted. Ambulates with bilaterally normal heel strike and toe off. Bilateral feet: Skin intact, no calluses, no redness, swelling or erythema. Decreased sensation over soles of feet and toes bilaterally, numbness left great toe. Right foot pale comparing to left foot, skin temperature is warm to touch and equal bilaterally. Affected areas were identified and marked in the distribution of the bilateral dorsal and plantar surfaces of both feet based on patient report and palpation. Cardio Jugular venous distension: no JVD Rate: regular rate Bruits: no carotid bruits Peripheral pulses: radial pulses present, posterior tibial pulses present (+2 left, +1 right) bilateral and dorsalis pedis present (+2) bilateral Extrem General: Yes capillary refill normal, Yes no clubbing, cyanosis or edema and Yes no pedal edema Psych Appearance: grossly normal Mental Status: mental status grossly normal Speech and movement: Normal speech and movement present Affect: normal affect Attitude: cooperative Thought process: Normal thought process present Thought content: Normal thought content present, suicidality (none), no hallucinations and No Depressive thoughts present Insight: Good insight present (Psych) Judgement: Good judgement present (Psych) Office Procedures Topical Capsaicin Date 1:: 12/06/21 Date 2:: 03/09/22 Date 3:: 06/08/22 Date 4:: 09/07/22 Laterality: Bilateral Location of left foot pain: Plantar and Dorsal Location of right foot pain: Plantar and Dorsal Quality of pain: Aching, Stabbing, Burning, Numb-like and Tiring Details:: Two patches, 560 cm2 were utilized per each foot. Patient apply lidocaine cream prior to arriving for application of the patch and reports good tolerance of Qutenza patch previously. The patient tolerated the procedure well. His vitals signs remained stable throughout the procedure. Patient was able to complete the stipulated 30 minutes of the therapeutic application without any discomfort. Office Meds capsaicin-skin cleanser 8 % topical kit Performing Provider: LOUIS Aden Performing Location: [facility] Administered by: LOUIS Aden on 12/05/22 09:42 Dose Route Admin Location Dispensed Lot Number Expiration Date [facility] Testboard Operator 4 ea topical [facility] 4 ea [id number] 03/05/25 61727-069-87 [employer] Assessment & Plan Assessment & Plan (1) Chronic painful diabetic neuropathy: Code(s): E11.40 - Type 2 diabetes mellitus with diabetic neuropathy, unspecified (2) Diabetes mellitus due to underlying condition with diabetic neuropathy, without long-term current use of insulin: Code(s): E08.40 - Diabetes mellitus due to underlying condition with diabetic neuropathy, unspecified (3) Bilateral foot pain: Code(s): M79.671 - Pain in right foot; M79.672 - Pain in left foot (4) Polymyalgia rheumatica: Code(s): M35.3 - Polymyalgia rheumatica (5) Failed back syndrome of lumbar spine: Code(s): M96.1 - Postlaminectomy syndrome, not elsewhere classified Plan Patient is status post 5th round of application of Qutenza, topical capsaicin 8% for diabetic neuropathy in bilateral feet. He is also suffering from PMR and failed back syndrome. Reports increase in his pain with recent decrease in prednisone intake to 2.5 mg BID. Patient tolerated the procedure without significant discomfort without application of EMLA cream prior to the procedure. He was discharged home in stable condition with discharge instructions. Next Qutenza application procedure scheduled in 3 months. Patient has shown accountability for his medication regimen and the pill count was accurate. There is no evidence of misuse, abuse or diversion at this time. [facility] reviewed. Next script sent with advanced date of 12/09/22. Follow up for a pill count as scheduled and sooner if needed. Greater than 45 minutes were spent in therapeutic application and in coordination of the care. Orders: Orders AMB Capsaicin Patch - Practice Supplied Today E11.40 - Type 2 diabetes mellitus with diabetic neuropathy, unspecified Medications: Refilled acetaminophen-codeine 300-30 mg Partial Fill upon patient request. 1 tab PO QID PRN 120 tabs 0RF pain 30 days M35.3 - Polymyalgia rheumatica, M47.26 - Other spondylosis with radiculopathy, lumbar region, M96.1 - Postlaminectomy syndrome, not elsewhere classified Coding Level of Care Code Est Pt Level 5 (90333) Diagnoses Chronic painful diabetic neuropathy E11.40 Diabetes mellitus due to underlying condition with diabetic neuropathy, without long-term current use of insulin E08.40 Bilateral foot pain M79.671; M79.672 Polymyalgia rheumatica M35.3 Failed back syndrome of lumbar spine M96.1
[2022-12-05 09:18] VITALS: BP 192/89; PULSE 56; O2SAT 97; BMI 42.4
[2022-12-05 09:31] VITALS: BP 176/66
[2022-12-05 10:17] VITALS: BP 142/80
[2022-12-05 10:47] VITALS: BP 142/80
== END 2022-12-05 10:35 | disposition home or self-care (01) ==
PROVIDERS: PCP Nurse Practitioner Family; Visit Provider Nurse Practitioner Family
DX: E11.40 Type 2 diabetes mellitus with diabetic neuropathy, unspecified (principal); M79.671 Pain in right foot; M79.672 Pain in left foot; M35.3 Polymyalgia rheumatica; M96.1 Postlaminectomy syndrome, not elsewhere classified
CPT/HCPCS: 17999; 99215

== ENCOUNTER → 2022-12-05 09:03 | Outpatient (BNVA) | payer OTHER, SELFPAY | PROVIDERS: PCP Nurse Practitioner Family; Visit Provider Nurse Practitioner Family | DX: E11.40 Type 2 diabetes mellitus with diabetic neuropathy, unspecified (principal); M79.671 Pain in right foot; M79.672 Pain in left foot; M35.3 Polymyalgia rheumatica; M96.1 Postlaminectomy syndrome, not elsewhere classified | CPT/HCPCS: 17999; 99212; J7336 ==

== ENCOUNTER 2022-12-05 10:38 | Outpatient (REF) | payer OTHER, SELFPAY ==
[2022-12-05 13:14] LABS: MANUAL DIFF FLAG NO
[2022-12-05 13:39] LABS: Basophils Percent Auto 0.8 % (0-2); Eosinophils Absolute Auto 0.1 X10*3/uL (0.0-0.4); Eosinophils Percent Auto 2.8 % (0-4); Hematocrit 41.9 % (42.0-52.0); Hemoglobin 14.5 g/dl (14.0-18.0); Imm Gran Abs Auto 0.02 X10*3/uL (0.00-0.03); Imm Gran Pct Auto 0.6 % (0.0-0.4); Lymphocytes Absolute Auto 1.3 X10*3/uL (1.2-4.9); Mean Corpuscular HGB Conc 34.6 g/dl (31.0-36.0); Mean Corpuscular Hemoglobin 35.1 pg (27.0-33.0); Mean Corpuscular Volume 101.5 fL (80.0-98.0); Mean Platelet Volume 11.4 fL (9.4-12.4); Monocytes Absolute Auto 0.6 X10*3/uL (0.1-1.2); Monocytes Percent Auto 17.4 % (2-11); Neutrophils Absolute Auto 1.5 x10*3/uL (2.0-8.3); Neutrophils Percent Auto 42.4 % (45-73); Red Blood Count 4.13 X10*6/uL (4.60-5.80); Red Cell Distribution Width 13.7 % (11.0-16.0); White Blood Count 3.6 X10*3/uL (4.8-10.8)
[2022-12-05 13:53] LABS: Alanine Aminotransferase 42 U/L (0-40); Aspartate Amino Transferase 22 U/L (5-37); C Reactive Protein < 0.10 mg/dL (< or = 0.50); Estimated Glomerular Filt Rate > 60
[2022-12-05 14:26] LABS: Erythrocyte Sedimentation Rate 1 MM/HR (0-15)
== END 2022-12-05 10:39 | disposition home or self-care (01) ==
LOC: HO.10HDL 10:38
PROVIDERS: Visit Provider Internal Medicine Rheumatology
DX: M35.3 Polymyalgia rheumatica (principal); Z79.899 Other long term (current) drug therapy
CPT/HCPCS: 36415; 82565; 84450; 84460; 85025; 85652; 86140

== ENCOUNTER 2022-12-14 11:01 | Outpatient (AMB) | payer OTHER, SELFPAY ==
--- NOTE | 2022-12-14 11:02 | MHC.OFFVIS ---
Intake Vital Signs 12/14/22 11:03 Height 5 ft 9 in Weight 287 lb 0.67 oz BMI 42.4 BP 112/60 Blood Pressure Location Lt brachial Position Sitting Pulse 73 Pulse Source Pulse Oximeter Temp 97.2 F Temp Source Skin Pulse Oximetry (%) 96 Oxygen Delivery Method Room Air Intake Visit Reasons: PMR Intake Note: Patient presents today to follow up on PMR. c/o fare up for last 4 days. Currentl on Prednisone 2.5 mg BID. Supply And Distribution Manager Required: No Accompanied by: Spouse Allergies methadone Allergy (Intermediate, Verified 12/14/22 11:07) Vomiting ibuprofen [From MOTRIN] Adverse Reaction (Severe, Verified 12/14/22 11:07) ANAPHYLAXIS NSAID Adverse Reaction (Severe, Uncoded 12/14/22 11:07) Anaphylaxis Medication List - Last Reconciled 12/14/22 by Moy Bustillo MD acetaminophen-codeine 300-30 mg 1 tab PO QID PRN 30 days amoxicillin 2,000 mg (4 x 500 mg) PO ONCE 1 day aspirin 81 mg PO DAILY bethanechol chloride 50 mg PO BEDTIME 30 days blood sugar diagnostic (FreeStyle Lite Strips) 1 strip miscellaneous DAILY 30 days capsaicin-skin cleanser 8 % (Qutenza) apply up to 4 (four) CAPSAICIN PATCHES to affected area; remove patch(es) after 30-60 minutes and apply SKIN CLEANSER gel as directed topical cholecalciferol (vitamin D3) 50 mcg PO DAILY 90 days CPAP Machine/Device (CPAP) use daily NS diclofenac sodium 1% 4 grams topical QID PRN epinephrine (EpiPen) 0.3 mg (0.3 mL) IM Q10M PRN folic acid 1 mg PO DAILY ketoconazole 2% topical 2XW lancets (FreeStyle Lancets) 1 gauge topical DAILY 90 days lidocaine-prilocaine 2.5-2.5 % 1 appl topical ONCE 1 day metformin ER 500 mg PO BID 90 days methotrexate sodium 20 mg PO QWEEK metoprolol succinate ER 25 mg PO DAILY naloxone 4 mg/actuation (Narcan) 4 mg intranasal Q2M PRN olopatadine 0.1% 0 drps ophthalmic (eye) oxybutynin chloride ER 10 mg PO DAILY pravastatin 40 mg PO DAILY prednisone 2.5 mg PO BID prednisone 2.5 mg PO BID ropinirole 0.5 mg PO BEDTIME sarilumab (Josephzara) 200 mg (1.14 mL) subcut Q2W tamsulosin 0.4 mg PO BID venlafaxine ER 150 mg PO DAILY 90 days HPI HPI Comments History of Present Illness Details The patient presents today for evaluation of his PMR. He is here with his . His prednisone dose is down to 2.5 b.i.d. He is also on the 162 mg Actemra every 2 weeks, 25 mg weekly methotrexate, and folic acid 1 mg daily. He takes Tylenol with codeine, mostly for neuropathic pain in the feet. He does say he did fine with recucing the prednisone dose until he got to this 2.5 b.i.d. dose. At the dose of 5 mg in the morning prednisone with 2.5 in the afternoon he was doing okay. This is the lowest he has been on the prednisone dose in quite a long time. He has no headache, jaw claudication or visual disturbance. When he got to this lower dose he felt more pain in the shoulders, knees, hands, as well as overall fatigue and low energy. 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 Seronegative rheumatoid arthritis Obesity (BMI 30-39.9) Vitamin D deficiency Diabetes type 2, controlled Osteopenia Adrenal 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 Painful total knee replacement, right Surgical History History of esophagogastroduodenoscopy (EGD) H/O colonoscopy Hx of coronary angiogram History of back surgery History of knee replacement procedure of right knee History of knee replacement procedure of left knee Hx of cardiac cath Family History Father Angina pectoris Mother Stroke Social History Household Members: Spouse Housing: House Are you a primary home care nurse to a significant other at home: No Do you presently have visiting nurse or other home services: No 75 years or older and lives alone: No Alcohol intake: current Alcohol intake frequency: holidays/special occasions only Alcohol type: beer and hard liquor Patient Tobacco Use Status: Former Tobacco user Quit Date: 1998 Years Smoked: 20 years ago e-Cigarette/Vaping Use: Never Used Second Hand Smoke Exposure: No Substance Use Type: Marijuana service: No Current occupational status: retired Cognitive needs: No Hearing needs: No Vision needs: No Review of Systems Const Details: Some return of fatigue and low energy with the reduction in daily prednisone below 7.5 mg. Negative for appetite change, weight change, fever, chills, malaise Eyes Details: Negative for vision change, dry eyes,headaches and dizziness ENT Details: Negative for hearing change, tinnitus, oral ulcer, nose bleeds and oral dryness. Card Details: Negative chest pain, edema and syncope Resp Details: Negative for SOB, cough and wheezing GI Details: Negative indigestion/heartburn, nausea, abdominal pain, bowel changes, diarrhea, constipation and bloody stool. Endo Details: Negative for polyuria and polydypsia Memo/Lymph Details: Negative for excessive bruising or bleeding. Physical Exam Vital Signs: Last Vital Signs Temp 97.2 F 12/14/22 11:03 Pulse 73 12/14/22 11:03 BP 112/60 12/14/22 11:03 Pulse Ox 96 12/14/22 11:03 Oxygen Delivery Method Room Air 12/14/22 11:03 BMI result Body Mass Index 42.4 APPEARANCE: Patient in no acute distress JOINT EXAM: Cervical Spine:? Full range of motion with mild discomfort; no tenderness. Thoracic Spine: No scoliosis.? No tenderness on palpation. Lumbar Spine:? Alignment normal.? Full range of motion without pain, no tenderness. Hands:? LEFT:? No MCP swelling or tenderness.? There is some thickening and tenderness at the 2nd and 3rd PIP joints.? Otherwise no swelling, tenderness, erythema or warmth throughout the hand.? RIGHT:? No MCP swelling or tenderness.? There is some slight thickening at the 2nd and 3rd PIP joint, the 3rd PIP has mild tenderness.? Otherwise no other swelling, tenderness, erythema or warmth throughout the hand. Wrists:? Right:? Mild pain with flexion or extension at 75 degrees but no tenderness or swelling.? Left:? Slight pain with flexion or extension at 75 degrees.? Mild tenderness without swelling.? Elbows: Normal pain-free range of motion without tenderness, swelling, increased warmth or erythema. Shoulders:? LEFT: Full range of motion, with slight discomfort at the extremes of normal range of motion.? There is no tenderness, weakness, swelling, increased warmth or erythema. ? RIGHT: Full range of motion, slight pain reported with abduction more than 120 degrees, he is able to complete range of motion fully despite slight pain. ? No tenderness, weakness, swelling, increased warmth or erythema. Hips:? Full range of motion with some mild lumbar discomfort with extremes of rotation. No groin pain with motion. Hip bursa: No tenderness. Knees:? Right:? Normal pain-free range of motion without tenderness, swelling, increased warmth or erythema.? There is no effusion or crepitation.? Left:? Pain-free range of motion with no effusion, tenderness, redness or warmth. Ankles:? Normal pain-free range of motion without tenderness, swelling, increased warmth or erythema. Feet:? Normal pain-free range of motion without tenderness, swelling, increased warmth or erythema. ? 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 This presumably is from the PMR. At least at this point we have been able to get his prednisone dose lower with the help of the Actemra. There may be some degree of adrenal insufficiency that is occurring that will limit our the speed of reduction in prednisone dose at this point and/or he could have some flare of his inflammatory disease. We will go back to prednisone 5 mg in the morning and 2.5 mg in the afternoon, his last effective dose. He will start with an extra 5 mg dose this afternoon. We will continue with the methotrexate but reduce the dose to 20 mg in light of the LFT abnormalities. He will also need further monitoring as the white count is a bit lower on the Actemra. We will repeat lab work again before his next visit in about 2 months. Orders: Orders Erythrocyte Sedimentation Rate Today M35.3 - Polymyalgia rheumatica Alanine Aminotransferase Today M35.3 - Polymyalgia rheumatica, Z79.899 - Other intermission coordinator (current) drug therapy Creatinine Today M35.3 - Polymyalgia rheumatica, Z79.899 - Other alf (current) drug therapy Aspartate Amino Transferase Today M35.3 - Polymyalgia rheumatica, Z79.899 - Other intermission coordinator (current) drug therapy C Reactive Protein Today M35.3 - Polymyalgia rheumatica Complete Blood Count Auto Diff Today M35.3 - Polymyalgia rheumatica, Z79.899 - Other intermission coordinator (current) drug therapy Medications: Changed From prednisone 2.5 mg PO BID M35.3 - Polymyalgia rheumatica To prednisone take 2 tab in AM and one in PM; 90 tabs 4RF M35.3 - Polymyalgia rheumatica Coding Level of Care Code Est Pt Level 4 (40431) Diagnoses Osteoarthritis of hands, bilateral M19.041; M19.042 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
[2022-12-14 11:03] VITALS: BP 112/60; PULSE 73; TEMP 36.2; O2SAT 96; BMI 42.4
== END 2022-12-14 11:44 | disposition home or self-care (01) ==
PROVIDERS: PCP Nurse Practitioner Family; Visit Provider Internal Medicine Rheumatology
DX: M19.041 Primary osteoarthritis, right hand (principal); M19.042 Primary osteoarthritis, left hand; Z79.899 Other long term (current) drug therapy; R74.01 Elevation of levels of liver transaminase levels; Z79.60 Long term (current) use of unspecified immunomodulators and immunosuppressants; M35.3 Polymyalgia rheumatica; D72.819 Decreased white blood cell count, unspecified
CPT/HCPCS: 99214

== ENCOUNTER → 2022-12-14 11:01 | Outpatient (BNVA) | payer OTHER, SELFPAY | PROVIDERS: PCP Nurse Practitioner Family; Visit Provider Internal Medicine Rheumatology | DX: M19.041 Primary osteoarthritis, right hand (principal); M19.042 Primary osteoarthritis, left hand; R74.01 Elevation of levels of liver transaminase levels; M35.3 Polymyalgia rheumatica; D72.819 Decreased white blood cell count, unspecified; Z79.60 Long term (current) use of unspecified immunomodulators and immunosuppressants; Z79.899 Other long term (current) drug therapy | CPT/HCPCS: 99212 ==

== ENCOUNTER 2022-12-18 08:53 | Outpatient (REF) | payer OTHER, SELFPAY ==
--- NOTE | ~2022-12-18 | FL_ITS ---
EXAMINATION: FL BARIUM SWALLOW CLINICAL INFORMATION: Dysphagia COMPARISON: None available. TECHNIQUE: Barium swallow examination is performed using fluoroscopic evaluation in addition to multiple fluoroscopic spot views. The patient is imaged both upright and prone and using both thick and thin sulfate along with effervescent granules. Barium tablet was also administered Fluoroscopy time: 49 seconds minutes DAP: [id number] uGym2. Total dose 50 mgy. Images: 27 FINDINGS: There is mild aspiration seen with thick liquid barium. There is a small sliding hiatal hernia. There is gastroesophageal reflux. Esophageal motility is normal. No mass or stricture is seen. Barium tablet passed freely into the stomach. FL/FL barium swallow IMPRESSION: Mild aspiration. Small sliding-type hiatal hernia. Gastroesophageal reflux. Findings will be communicated by the [place] work flow client care representative
== END 2022-12-18 08:54 | disposition home or self-care (01) ==
LOC: HO.XRAY 08:53
PROVIDERS: PCP Nurse Practitioner Family; Visit Provider Physician Assistant
DX: R13.10 Dysphagia, unspecified (principal)
CPT/HCPCS: 74220

== ENCOUNTER 2023-01-02 09:00 | Outpatient (AMB) | payer OTHER, SELFPAY ==
--- NOTE | 2023-01-02 09:00 | A.OFFVIS_ITS ---
Intake Vital Signs 01/02/23 09:15 01/02/23 09:15 Height 5 ft 9 in Weight 288 lb 2 oz BMI 42.5 BP 204/89 H 140/70 H Blood Pressure Location Lt brachial Lt brachial Position Sitting Sitting Pulse 60 Pulse Source Pulse Oximeter Pulse Oximetry (%) 97 Oxygen Delivery Method Room Air Comment bp recheck manually done Intake Visit Reasons: Medication Count/ CONFIRMED Intake Note: Lino comes in today for a pill count to acetaminophen-cod, patient should have 24 tablets and presents with 24 tablets which he last took yesterday 01/01/23 at 6:30am. 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 He is supposed to have #24 pills, in his possession has #24 pills. This demonstrates a responsible attitude in regards to the medication regimen. Patient reports inadequate pain relief without noted side effects on his regime of acetaminophen-codeine 300-30 mg 1 tab QID prn. He suffers from chronic multiple joint pain with PMR and rheumatoid arthritis, post laminectomy syndrome, and significant neuropathy in both his feet. Patient rates his current pain 8/10 with current opioid regime. He is interested in opioid rotation. His prednisone has been recently increased to previous effective dose of 5 mg in am and 2.5 mg in the afternoon. Patient also reports abdominal discomfort due to umbilical hernia and was recently noted to have small hiatal hernia per recent Barium Swallow studies. We returned to the topic of Spinal Cord Stimulator for his chronic neuropathy in his feet and post laminectomy syndrome. Reports previous decompressive surgery at L3-L4 in 2018 by RANJIT Swift. He has gained small benefit of 5 rounds of Qutenza application. Patient would like to proceed with this as pain negatively affects his daily activities, functioning, sleep, social activities and quality of life. I will submit referral for Behavioral Evaluation. Denies any fever, chills, headache, dyspnea, visual disturbances, constipation, nausea, sedation, dizziness, bowel or bladder dysfunction or saddle anesthesia. 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 Seronegative rheumatoid arthritis Obesity (BMI 30-39.9) Vitamin D deficiency Diabetes type 2, controlled Osteopenia Adrenal 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 Painful total knee replacement, right Surgical History (Updated 01/02/23 @ 12:14 by LOUIS Aden) History of esophagogastroduodenoscopy (EGD) H/O colonoscopy Hx of coronary angiogram History of back surgery (~2018) History of knee replacement procedure of right knee History of knee replacement procedure of left knee Hx of cardiac cath Family History Father Angina pectoris Mother Stroke Social History Household Members: Spouse Housing: House Are you a primary healthcare receptionist to a significant other at home: No Do you presently have visiting nurse or other home services: No 75 years or older and lives alone: No Alcohol intake: current Alcohol intake frequency: holidays/special occasions only Alcohol type: beer and hard liquor Patient Tobacco Use Status: Former Tobacco user Quit Date: 1998 Years Smoked: 20 years ago e-Cigarette/Vaping Use: Never Used Second Hand Smoke Exposure: No Substance Use Type: Marijuana service: No Current occupational status: retired Cognitive needs: No Hearing needs: No Vision needs: No Review of Systems Const All systems reviewed & are unremarkable except as noted in HPI and below Physical Exam Vital Signs: Last Vital Signs Pulse 60 01/02/23 09:15 BP 140/70 H 01/02/23 09:15 Pulse Ox 97 01/02/23 09:15 Oxygen Delivery Method Room Air 01/02/23 09:15 BMI result Body Mass Index 42.5 General: Appears afebrile. Alert and oriented. Mood and affect appropriate. Follows and participates in conversation appropriately. Respiratory effort is unlabored. Able to transition from sit to stand unassisted. GI Inspection: Yes normal to inspection, Yes obesity and Yes visible herniation Palpation (GI): Soft to palpation, nontender and no guarding Back/Spine/Pelvis Cervical Spine: cervical ROM normal Thoracic/Lumbar Spine: thoracic and lumbar spine normal to inspection, Thoracic/lumbar spine scar(s), Lasegue's sign negative, pain with thoraco-lumbar ROM, thoraco-lumbar ROM limited, No thoracic spinal tenderness and No lumbar spinal tenderness Extrem General: Yes capillary refill normal and Yes no clubbing, cyanosis or edema Psych Appearance: grossly normal Mental Status: mental status grossly normal Speech and movement: Normal speech and movement present Affect: normal affect Attitude: cooperative Thought process: Normal thought process present Thought content: Normal thought content present, suicidality (none), no hallucinations and No Depressive thoughts present Insight: Good insight present (Psych) Judgement: Good judgement present (Psych) Results Reviewed Results Reviewed: XR LUMBOSACRAL SPINE 05/08/2019 CLINICAL INFORMATION: Lower back pain status-post injury. COMPARISON: MRI lumbar spine dated 02/05/2018 and radiographs dated 03/12/2017. TECHNIQUE: 3 views of the lumbosacral spine were obtained. FINDINGS: Bone mineralization is normal. There is a stable slight anterior wedge compression fracture of the L1 vertebral body. There is a mild disc space narrowing and vacuum disc phenomenon extending from T12-L1 through L5-S1. There is a multilevel mild to moderate lower thoracic and lumbar spondylosis. The posterior elements are intact. There are aortoiliac atherosclerotic calcifications. No foreign body is seen. IMPRESSION: 1. There is a very mild anterior wedge compression fracture of the L1 vertebral body, unchanged from the MRI examination of 02/05/2018. 2. There is multilevel lower thoracic and lumbar degenerative disc disease and spondylosis. MR LUMBAR SPINE WITHOUT CONTRAST 02/05/2018 CLINICAL INFORMATION: Low back pain with bilateral hip soreness. COMPARISON: None TECHNIQUE: MRI of the lumbar spine was obtained using routine sequences without contrast. FINDINGS: VERTEBRAL BODIES AND PARASPINAL STRUCTURES: Marrow signal is mildly heterogeneous. There are no compression fractures or subluxations. Mild to moderate multilevel disc space narrowing noted with degenerative endplate Schmorl's nodes. Mild endplate edematous changes noted at the L1 level superiorly, at L5 superiorly and inferiorly, and superiorly at the S1 level. The paraspinal soft tissues appear normal. There are mild degenerative changes of the SI joints. CONUS MEDULLARIS AND CAUDA EQUINA: Normal, terminating at the level of L1. No lower cord signal abnormality is seen. The cauda equina nerve roots are normal. SPINAL LEVELS: L1-L2: Moderate loss of disc height with a diffuse disc bulge and small central protrusion. No central canal stenosis or foraminal narrowing. L2-L3: Mild loss of disc height with a broad-based right subarticular to right foraminal disc protrusion resulting in moderate encroachment. Diffuse disc bulge and mild central canal stenosis. Moderate left foraminal narrowing. L3-L4: Broad-based disc bulge present with bilateral foraminal disc protrusions distorting the exiting L3 nerve roots, right greater than left side. Additional small central disc protrusion contributing to thecal sac deformity. Severe central canal stenosis and thecal sac compression with a generalized disc bulge and hypertrophic facet arthropathy. L4-L5: Central disc protrusion mildly distorting the ventral thecal sac. Hypertrophic facet arthropathy and disc bulge encroach upon the subarticular zones at the site of the traversing L5 nerve roots. Mild central canal stenosis. Mild to moderate foraminal narrowing, worse on the left side. L5-S1: Focal central disc protrusion with mild mass effect upon the right S1 nerve root. No central canal stenosis. Hypertrophic facet arthropathy present. R ight foraminal disc protrusion distorts the right L5 nerve root with [id number] encroachment. Bulging disc also abuts the left L5 nerve root in the foramen. IMPRESSION: Multilevel, multifactorial degenerative changes in the lumbar spine, most severe at L3-L4 where there is severe central canal stenosis and thecal sac compression with bilateral foraminal disc protrusions distorting the exiting L3 nerve roots. Small central disc protrusion as well. 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 opiate analgesic (5) Chronic pain syndrome: Code(s): G89.4 - Chronic pain syndrome (6) Failed back syndrome of lumbar spine: Code(s): M96.1 - Postlaminectomy syndrome, not elsewhere classified (7) Hiatal hernia: Code(s): K44.9 - Diaphragmatic hernia without obstruction or gangrene (8) Umbilical hernia: Code(s): K42.9 - Umbilical hernia without obstruction or gangrene (9) Diabetes mellitus due to underlying condition with diabetic neuropathy, without long-term current use of insulin: Code(s): E08.40 - Diabetes mellitus due to underlying condition with diabetic neuropathy, unspecified Plan General Surgeon referral for evaluation of umbilical hernia as well as recent findings of small hiatal hernia. Behavioral evaluation for potential Nevro SCS trial for chronic painful neuropathy and post laminectomy syndrome. Patient has shown accountability for his medication regimen and the pill count was accurate. There is no evidence of misuse, abuse or diversion at this time. [employer] reviewed. Will stop Tylenol #3 and start Vicodin 7.5-325 mg TID prn. Patient is aware to monitor for any side effects. Follow up for a pill count as scheduled and sooner if needed. Orders: Referrals General Surgery Referral K42.9 - Umbilical hernia without obstruction or gangrene, K44.9 - Diaphragmatic hernia without obstruction or gangrene Medications: New hydrocodone-acetaminophen 7.5-325 mg Partial Fill upon patient request. 1 tab PO TID PRN 90 tabs 0RF pain 30 days E11.40 - Type 2 diabetes mellitus with diabetic neuropathy, unspecified, G89.4 - Chronic pain syndrome, M35.3 - Polymyalgia rheumatica, M96.1 - Postlaminectomy syndrome, not elsewhere classified, Z79.891 - skilled nursing (current) use of opiate analgesic Discontinued acetaminophen-codeine 300-30 mg Partial Fill upon patient request. Discontinued Reason: Doctor's Order 1 tab PO QID 30 days PRN 120 tabs 0RF pain M35.3 - Polymyalgia rheumatica, M47.26 - Other spondylosis with radiculopathy, lumbar region, M96.1 - Postlaminectomy syndrome, not elsewhere classified Coding Level of Care Code Est Pt Level 4 (82510) Diagnoses Chronic painful diabetic neuropathy E11.40 Bilateral foot pain M79.671; M79.672 Polymyalgia rheumatica M35.3 Opioid use agreement exists Z79.891 Chronic pain syndrome G89.4 Failed back syndrome of lumbar spine M96.1 Hiatal hernia K44.9 Umbilical hernia K42.9 Diabetes mellitus due to underlying condition with diabetic neuropathy, without long-term current use of insulin E08.40
[2023-01-02 09:15] VITALS: BP 140/70; BP 204/89; PULSE 60; O2SAT 97; BMI 42.5
== END 2023-01-02 09:50 | disposition home or self-care (01) ==
PROVIDERS: PCP Nurse Practitioner Family; Visit Provider Nurse Practitioner Family
DX: M35.3 Polymyalgia rheumatica (principal); E11.40 Type 2 diabetes mellitus with diabetic neuropathy, unspecified; Z79.891 Long term (current) use of opiate analgesic; M79.671 Pain in right foot; M79.672 Pain in left foot; G89.4 Chronic pain syndrome; M96.1 Postlaminectomy syndrome, not elsewhere classified; K44.9 Diaphragmatic hernia without obstruction or gangrene; K42.9 Umbilical hernia without obstruction or gangrene; E08.40 Diabetes mellitus due to underlying condition with diabetic neuropathy, unspecified
CPT/HCPCS: 99214

== ENCOUNTER → 2023-01-02 09:00 | Outpatient (BNVA) | payer OTHER, SELFPAY | PROVIDERS: PCP Nurse Practitioner Family; Visit Provider Nurse Practitioner Family | DX: M79.671 Pain in right foot (principal); M79.672 Pain in left foot; M96.1 Postlaminectomy syndrome, not elsewhere classified; M35.3 Polymyalgia rheumatica; G89.4 Chronic pain syndrome; K44.9 Diaphragmatic hernia without obstruction or gangrene; K42.9 Umbilical hernia without obstruction or gangrene; E08.40 Diabetes mellitus due to underlying condition with diabetic neuropathy, unspecified; E11.40 Type 2 diabetes mellitus with diabetic neuropathy, unspecified; Z79.891 Long term (current) use of opiate analgesic | CPT/HCPCS: 99212 ==

== ENCOUNTER 2023-01-10 12:58 | Outpatient (AMB) | payer OTHER, SELFPAY ==
--- NOTE | 2023-01-10 13:07 | MHC.OFFVIS ---
Intake Vital Signs 01/10/23 13:15 Height 5 ft 6.5 in Weight 288 lb 12.889 oz BMI 45.9 BP 148/82 H Blood Pressure Location Rt brachial Position Sitting Pulse 68 Pulse Source Pulse Oximeter Temp 96.9 F Temp Source Tympanic Pulse Oximetry (%) 96 Oxygen Delivery Method Room Air Intake Visit Reasons: diaphragmatic and umbilical hernia Allergies methadone Allergy (Intermediate, Verified 01/10/23 13:15) Vomiting ibuprofen [From MOTRIN] Adverse Reaction (Severe, Verified 01/10/23 13:15) ANAPHYLAXIS NSAID Adverse Reaction (Severe, Uncoded 01/10/23 13:15) Anaphylaxis HPI HPI Comments History of Present Illness Details The patient is a 67-year-old gentleman who is accompanied by his with a complex medical history including adrenal insufficiency, obesity with the presenting weight of 288.8 lb/BMI 45.9 who was having dysphagia related to eating certain foods. He describes rice as the original problem and notes that he seldom choose and has a tendency to eat quickly and gulp unchewed food. 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 The patient had biopsies that were negative for eosinophilic esophagitis and no other significant pathology identified. Patient was sent for an upper GI in a small hiatal hernia was identified. Normal esophageal motility was noted. Patient reports no heartburn symptoms and notes only difficulty with swallowing when he is not showing food, rice or meat. The patient states that he was previously told by his PCP, Dr. Konstantin Reyes, years ago that he has a diastasis recti which is not a hernia, but states that he was told he needed to be evaluated for a possible abdominal wall/umbilical hernia. Patient denies any prior abdominal operations or hernia repairs. Patient notes he is at the heaviest of his adult life secondary to prednisone. He notes that when he is previously cut out carbohydrates, sugar sweetened beverages he has lost 50-60 lb but is not interested in bariatric or weight loss procedures at this time. 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 Seronegative rheumatoid arthritis Obesity (BMI 30-39.9) Vitamin D deficiency Diabetes type 2, controlled Osteopenia Adrenal 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 Painful total knee replacement, right Surgical History History of esophagogastroduodenoscopy (EGD) H/O colonoscopy Hx of coronary angiogram History of back surgery (~2018) History of knee replacement procedure of right knee History of knee replacement procedure of left knee Hx of cardiac cath Family History Father Angina pectoris Mother Stroke Social History Household Members: Spouse Housing: House Are you a primary child care centre manager to a significant other at home: No Do you presently have visiting nurse or other home services: No 75 years or older and lives alone: No Alcohol intake: current Alcohol intake frequency: holidays/special occasions only Alcohol type: beer and hard liquor Patient Tobacco Use Status: Former Tobacco user Quit Date: 1998 Years Smoked: 20 years ago e-Cigarette/Vaping Use: Never Used Second Hand Smoke Exposure: No Substance Use Type: Marijuana service: No Current occupational status: retired Cognitive needs: No Hearing needs: No Vision needs: No Review of Systems Const All systems reviewed & are unremarkable except as noted in HPI and below Reports as per HPI Physical Exam On exam, the patient is elderly but nontoxic He is having no respiratory distress No cervical masses or adenopathy is present Heart is regular but distant, lungs are clear and equal Abdomen is obese but nontender. A prominent diastasis recti is noted on Valsalva with sitting up but no umbilical hernia is present Skin has decreased turgor as to be expected with his age Results Reviewed Results Reviewed: Labs 12/05/2022 Hemoglobin 14.5 with normochromic/normocytic indices White blood cell count is low at 3.6, platelet count 140 ALT elevated at 42, otherwise LFTs are normal EGD report biopsies dated 10/11/2022 demonstrating concern for epiglottic anomaly and recommendation for ENT referral noted; biopsies are negative for eosinophilic esophagitis Upper GI report dated 12/18/2022 shows mild aspiration in a small hiatal hernia with no motility disorders or overt masses. I cannot view the images in the EMR, only the report is reviewed Assessment & Plan Assessment & Plan (1) Diastasis recti: Code(s): M62.08 - Separation of muscle (nontraumatic), other site (2) Morbid obesity: Code(s): E66.01 - Morbid (severe) obesity due to excess calories (3) Adrenal insufficiency: Code(s): E27.40 - Unspecified adrenocortical insufficiency (4) Type 2 diabetes mellitus with unspecified complications: Code(s): E11.8 - Type 2 diabetes mellitus with unspecified complications (5) Polymyalgia rheumatica: Code(s): M35.3 - Polymyalgia rheumatica (6) Diabetes mellitus due to underlying condition with diabetic neuropathy, without long-term current use of insulin: Code(s): E08.40 - Diabetes mellitus due to underlying condition with diabetic neuropathy, unspecified (7) Long-term use of immunosuppressant medication: Code(s): Z79.60 - care home (current) use of unspecified immunomodulators and immunosuppressants (8) Disorder of epiglottis: Comment: will call after 03/2023 to schedule screening colon- Code(s): J38.7 - Other diseases of larynx (9) HTN (hypertension): Code(s): I10 - Essential (primary) hypertension (10) Sleep apnea: Code(s): G47.30 - Sleep apnea, unspecified Plan I reassured the patient and his that the diastasis recti that is present is not a hernia. I alyssa out an explanation regarding the diastasis and I have recommended the patient consider medical weight loss given his ongoing obesity related issues. He was not interested in bariatric surgery discussion because of his comorbidities. Nutritional handouts regarding diet were provided. Patient also notes no GERD and is currently not on any PPI nor H2 jordan regarding the small hiatal hernia diagnosed on upper GI. Given his lack of symptoms as well as operative risk for recurrence given his obesity, I would not recommend operative correction since he is asymptomatic. Patient states he has not heard from ENT regarding the epiglottis concern and consultation. Will make GI aware and have included Dr. Rivas in this note since f/u re: ENT is needed. His spent 51 minutes with the patient and his answering their questions. I will see him again if needed. Coding Level of Care Code New Pt Level 4 (76011) Diagnoses Diastasis recti M62.08 Morbid obesity E66.01 Adrenal insufficiency E27.40 Type 2 diabetes mellitus with unspecified complications E11.8 Polymyalgia rheumatica M35.3 Diabetes mellitus due to underlying condition with diabetic neuropathy, without long-term current use of insulin E08.40 Long-term use of immunosuppressant medication Z79.60 Disorder of epiglottis J38.7 HTN (hypertension) I10 Sleep apnea G47.30
[2023-01-10 13:15] VITALS: BP 148/82; PULSE 68; TEMP 36.1; O2SAT 96; BMI 45.9
== END 2023-01-10 14:00 | disposition home or self-care (01) ==
PROVIDERS: PCP Nurse Practitioner Family; Visit Provider Surgery
DX: M62.08 Separation of muscle (nontraumatic), other site (principal); E66.01 Morbid (severe) obesity due to excess calories; E27.40 Unspecified adrenocortical insufficiency; E11.8 Type 2 diabetes mellitus with unspecified complications; M35.3 Polymyalgia rheumatica; E08.40 Diabetes mellitus due to underlying condition with diabetic neuropathy, unspecified; Z79.60 Long term (current) use of unspecified immunomodulators and immunosuppressants; J38.7 Other diseases of larynx; I10 Essential (primary) hypertension; G47.30 Sleep apnea, unspecified
CPT/HCPCS: 99204

== ENCOUNTER → 2023-01-10 12:58 | Outpatient (BNVA) | payer OTHER, SELFPAY | PROVIDERS: PCP Nurse Practitioner Family; Visit Provider Surgery | DX: M62.08 Separation of muscle (nontraumatic), other site (principal); M35.3 Polymyalgia rheumatica; E27.40 Unspecified adrenocortical insufficiency; E11.8 Type 2 diabetes mellitus with unspecified complications; E08.40 Diabetes mellitus due to underlying condition with diabetic neuropathy, unspecified; G47.30 Sleep apnea, unspecified; J38.7 Other diseases of larynx; I10 Essential (primary) hypertension; Z79.60 Long term (current) use of unspecified immunomodulators and immunosuppressants; E66.01 Morbid (severe) obesity due to excess calories; Z68.42 Body mass index [BMI] 45.0-49.9, adult | CPT/HCPCS: 99202 ==

== ENCOUNTER → 2023-01-11 08:55 | Outpatient (BNVA) | payer OTHER, SELFPAY | PROVIDERS: PCP Nurse Practitioner Family; Visit Provider Nurse Practitioner Family ==

== ENCOUNTER → 2023-01-18 13:01 | Outpatient (BNVA) | payer OTHER, SELFPAY | PROVIDERS: PCP Nurse Practitioner Family; Visit Provider Nurse Practitioner Family | DX: Z01.89 Encounter for other specified special examinations (principal) | CPT/HCPCS: 99211 ==

== ENCOUNTER 2023-01-23 09:11 | Outpatient (AMB) | payer OTHER, SELFPAY ==
--- NOTE | 2023-01-23 09:17 | A.OFFVIS_ITS ---
Intake Intake Visit Reasons: 3m/PVR Intake Note: Patient is Present for Follow Up Urology Medication: Bethenachol, Oxybutynin, Tamsulosin Antibiotic Allergies: None Blood Thinners: Aspirin PVR: 0 Compliants: Patient confirms that he is currently taking bethenachol, Oxybutynin and tamsulosin. He states the medication is working well. He would like to discuss if he should still be on both Bethanechol and Oxybutynin Allergies methadone Allergy (Intermediate, Verified 01/23/23 09:20) Vomiting ibuprofen [From MOTRIN] Adverse Reaction (Severe, Verified 01/23/23 09:20) ANAPHYLAXIS NSAID Adverse Reaction (Severe, Uncoded 01/23/23 09:20) Anaphylaxis HPI HPI Comments History of Present Illness Details Lino is a pleasant male. He is a patient of Dr. Beck. He seen for the following urologic conditions - lower urinary tract symptoms - detrusor hyperactivity Follow-up from trial of bethanechol PVR 0 Good response to combination oxybutynin tamsulosin and bethanechol Happy with current emptying Background diabetes developed secondary to prednisone for p.m. 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 Seronegative rheumatoid arthritis Obesity (BMI 30-39.9) Vitamin D deficiency Diabetes type 2, controlled Osteopenia Adrenal 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 Painful total knee replacement, right Surgical History History of esophagogastroduodenoscopy (EGD) H/O colonoscopy Hx of coronary angiogram History of back surgery (~2017) History of knee replacement procedure of right knee History of knee replacement procedure of left knee Hx of cardiac cath Family History Father Angina pectoris Mother Stroke Household Members: Spouse Housing: House Are you a primary career orientation teacher to a significant other at home: No Do you presently have visiting nurse or other home services: No 75 years or older and lives alone: No Alcohol intake: current Alcohol intake frequency: holidays/special occasions only Alcohol type: beer and hard liquor Patient Tobacco Use Status: Former Tobacco user Quit Date: 1998 Years Smoked: 20 years ago e-Cigarette/Vaping Use: Never Used Second Hand Smoke Exposure: No Substance Use Type: Marijuana service: No Current occupational status: retired Cognitive needs: No Hearing needs: No Vision needs: No Review of Systems Const Denies chills and Denies fever(s) Card Reports no additional complaints and Denies syncope Resp Denies cough GI Denies abdominal pain and Denies heartburn Reports as per HPI and Denies change in libido Neuro Denies syncope Psych Denies change in libido Endo Denies change in libido Physical Exam Const General: cooperative, healthy appearing, comfortable and no acute distress Orientation/consciousness: patient oriented x3 HEENT Face and sinus: Yes normal facial exam Mouth: moist mucous membranes Neck Neck: Yes normal visual inspection, Yes full ROM and Yes trachea midline Chest Chest palpation & inspection: normal inspection of the chest Resp Effort & Inspection: normal respiratory effort, able to speak in complete sentences and no respiratory distress GI Inspection: Yes normal to inspection Back/Spine/Pelvis Cervical Spine: normal cervical lordosis Thoracic/Lumbar Spine: thoracic and lumbar spine normal to inspection Skin General skin exam: no rashes or lesions noted Neuro General: patient oriented x3, gait normal, tone normal and moves all extremities Extrem General: Yes normal to inspection and Yes capillary refill normal Office Procedures Post Void Residual Post Residual Void Post Void Residual (PVR): 0 23168-[id number] Void Residual by ultrasound Assessment & Plan Assessment & Plan (1) Enlarged prostate: Code(s): N40.0 - Benign prostatic hyperplasia without lower urinary tract symptoms (2) Kidney stone on left side: Code(s): N20.0 - Calculus of kidney (3) Urinary urgency: Code(s): R39.15 - Urgency of urination (4) Slowing of urinary stream: Code(s): R39.198 - Other difficulties with micturition (5) BPH loc w urin obs/LUTS: Code(s): N40.1 - Benign prostatic hyperplasia with lower urinary tract symptoms Plan Continue combination medications Orders: Orders AMB Urinalysis Automated Today Z13.9 - Encounter for screening, unspecified AMB Post Void Residual by ultrasound Today N40.1 - Benign prostatic hyperplasia with lower urinary tract symptoms Medications: Changed From oxybutynin chloride ER 10 mg PO DAILY 30 tabs 3RF To oxybutynin chloride ER 10 mg PO DAILY 90 days 90 tabs 1RF From bethanechol chloride 50 mg PO BEDTIME 30 days 30 tabs 2RF R33.9 - Retention of urine, unspecified To bethanechol chloride 50 mg PO BEDTIME 90 days 90 tabs 1RF R33.9 - Retention of urine, unspecified From tamsulosin 0.4 mg PO BID 180 caps 1RF To tamsulosin 0.4 mg PO BID 90 days 180 caps 1RF Patient Instructions: Imaging studies, laboratory and physical exam results were discussed and reviewed in detail. No major barriers to patient understanding were identified. An opportunity to ask questions regarding the treatment plan was provided. All questions were answered. The patient expressed understanding and agreement with the above treatment plan. The patient is aware they should contact our office by phone for worsening of their current condition or the appearance of new urologic symptoms. Compliance is encouraged with any medications and followup testing that is ordered. It is a privilege to participate in the urologic care of your patient. If you have any questions or concerns regarding treatment for the above conditions, or other urologic issues, please do not hesitate to contact me. The office telephone contact is [phone]. This note is constructed using voice recognition software. While every effort has been made to ensure accuracy laminated plastics assembler and gluer errors may have been included. Yours sincerely, Dr Bishop Uribe MD, [facility] - Urology Providers of Expert, Compassionate Care for the Genitourinary System Coding Level of Care Code Est Pt Level 3 (68573) Diagnoses Enlarged prostate N40.0 Kidney stone on left side N20.0 Urinary urgency R39.15 Slowing of urinary stream R39.198 BPH loc w urin obs/LUTS N40.1 CPT Codes Post Residual Void - PVR CPT Code: 09181-Enbc Void Residual by ultrasound ([id number])
== END 2023-01-23 09:41 | disposition home or self-care (01) ==
PROVIDERS: PCP Nurse Practitioner Family; Visit Provider Urology
DX: N40.0 Benign prostatic hyperplasia without lower urinary tract symptoms (principal); N20.0 Calculus of kidney; R39.15 Urgency of urination; R39.198 Other difficulties with micturition; N40.1 Benign prostatic hyperplasia with lower urinary tract symptoms
CPT/HCPCS: 99213

== ENCOUNTER → 2023-01-23 09:11 | Outpatient (BNVA) | payer OTHER, SELFPAY | PROVIDERS: PCP Nurse Practitioner Family; Visit Provider Urology | DX: N40.1 Benign prostatic hyperplasia with lower urinary tract symptoms (principal); N13.8 Other obstructive and reflux uropathy; N20.0 Calculus of kidney; R39.198 Other difficulties with micturition; R39.15 Urgency of urination | CPT/HCPCS: 51798; 99212 ==

== ENCOUNTER 2023-01-30 09:17 | Outpatient (AMB) | payer OTHER, SELFPAY ==
--- NOTE | 2023-01-30 09:23 | A.OFFVIS_ITS ---
Intake Vital Signs 01/30/23 09:37 Height 5 ft 9 in Weight 283 lb BMI 41.8 BP 158/75 H Blood Pressure Location Rt brachial Position Sitting Pulse 63 Pulse Source Pulse Oximeter Pulse Oximetry (%) 97 Oxygen Delivery Method Room Air Intake Visit Reasons: Medication Count/lvm Intake Note: Lino comes in today for a pill count to hydrocodone-acetaminophen, patient should have 6 tablets and presents with 47 tablets which he last took yesterday 01/29/23. Pain today 5/10. Patient also requested to have hydrocodone-acetaminophen destroyed and would l grisel to go back to tylenol #3. #47 tablets destroyed in office today. Insulator Tester Required: No Accompanied by: Spouse Allergies methadone Allergy (Intermediate, Verified 01/30/23 09:37) Vomiting ibuprofen [From MOTRIN] Adverse Reaction (Severe, Verified 01/30/23 09:37) ANAPHYLAXIS NSAID Adverse Reaction (Severe, Uncoded 01/23/23 09:20) Anaphylaxis HPI HPI Comments History of Present Illness Details Patient presents for pill count. He is supposed to have #6 pills, in his possession has #47 pills. This demonstrates a responsible attitude in regards to the medication regimen. Patient reports he stopped taking Vicodin yesterday due to constipation. He is requesting to return back to Tylenol #3. Patient hopes to eventually titrate off opioid medication if he has good r esponse with SCS trial. He passed behavioral evaluation and awaits insurance approval for SCS trial. He suffers from chronic multiple joint pain with PMR and rheumatoid arthritis, post laminectomy syndrome, and significant neuropathy in both his feet. Denies any fever, chills, shortness of breaths, headache, visual disturbances, constipation, nausea, sedation, dizziness, bowel or bladder dysfunction or saddle anesthesia. Patient reports productive cough with yellow secrtions for over one week that has been worsening. 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 Seronegative rheumatoid arthritis Obesity (BMI 30-39.9) Vitamin D deficiency Diabetes type 2, controlled Osteopenia Adrenal 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 Painful total knee replacement, right Surgical History History of esophagogastroduodenoscopy (EGD) H/O colonoscopy Hx of coronary angiogram History of back surgery (~2018) History of knee replacement procedure of right knee History of knee replacement procedure of left knee Hx of cardiac cath Family History Father Angina pectoris Mother Stroke Household Members: Spouse Housing: House Are you a primary critical care cns to a significant other at home: No Do you presently have visiting nurse or other home services: No 75 years or older and lives alone: No Alcohol intake: current Alcohol intake frequency: holidays/special occasions only Alcohol type: beer and hard liquor Patient Tobacco Use Status: Former Tobacco user Quit Date: 1998 Years Smoked: 20 years ago e-Cigarette/Vaping Use: Never Used Second Hand Smoke Exposure: No Substance Use Type: Marijuana service: No Current occupational status: retired Cognitive needs: No Hearing needs: No Vision needs: No Review of Systems Const All systems reviewed & are unremarkable except as noted in HPI and below Denies headache(s) ENT Denies dental pain, Denies dysphagia, Denies dry mouth, Denies headache(s), Denies nasal discharge, Denies post nasal drip, Reports sore throat and Denies throat swelling Card Denies dyspnea on exertion Resp Reports as per HPI, Denies chest congestion, Reports cough, Denies hemoptysis, Denies pain with cough, Denies dyspnea on exertion, Denies stridor and Denies wheezing GI Denies dysphagia Neuro Denies headache(s) Aller/Immun Denies throat swelling and Denies wheezing Physical Exam Vital Signs: Last Vital Signs Pulse 63 01/30/23 09:37 BP 158/75 H 01/30/23 09:37 Pulse Ox 97 01/30/23 09:37 Oxygen Delivery Method Room Air 01/30/23 09:37 BMI result Body Mass Index 41.8 General: Appears afebrile. Alert and oriented. Mood and affect appropriate. Follows and participates in conversation appropriately. Respiratory effort is unlabored. Able to transition from sit to stand unassisted. Resp Effort & Inspection: able to speak in complete sentences, no audible wheezes, Actively coughing and symmetric chest movement GI Inspection: Yes normal to inspection, Yes obesity and Yes visible herniation Palpation (GI): Soft to palpation, nontender and no guarding Back/Spine/Pelvis Cervical Spine: cervical ROM normal and No Cervical spine tenderness Thoracic/Lumbar Spine: thoracic and lumbar spine normal to inspection, Th oracic/lumbar spine scar(s), Lasegue's sign negative, pain with thoraco-lumbar ROM, thoraco-lumbar ROM limited, No thoracic spinal tenderness and No lumbar spinal tenderness Extrem General: Yes capillary refill normal, Yes no clubbing, cyanosis or edema and Yes no calf tenderness Psych Appearance: grossly normal and well kempt Mental Status: mental status grossly normal Speech and movement: Normal speech and movement present and Clear speech present Affect: normal affect Attitude: cooperative Thought process: Normal thought process present Thought content: Normal thought content present, suicidality (none), no hallucinations and No Depressive thoughts present Insight: Good insight present (Psych) Judgement: Good judgement present (Psych) Assessment & Plan Assessment & Plan (1) Pharyngitis: Code(s): J02.9 - Acute pharyngitis, unspecified (2) Chronic painful diabetic neuropathy: Code(s): E11.40 - Type 2 diabetes mellitus with diabetic neuropathy, unspecified (3) Bilateral foot pain: Code(s): M79.671 - Pain in right foot; M79.672 - Pain in left foot (4) Opioid use agreement exists: Code(s): Z79.891 - shelter (current) use of opiate analgesic (5) Chronic pain syndrome: Code(s): G89.4 - Chronic pain syndrome (6) Failed back syndrome of lumbar spine: Code(s): M96.1 - Postlaminectomy syndrome, not elsewhere classified Plan Patient has passed Behavioral evaluation, awaiting insurance approval for [id number] SCS trial for chronic painful neuropathy and post laminectomy syndrome. Patient has shown accountability for his medication regimen and the pill count was accurate. There is no evidence of misuse, abuse or diversion at this time. [employer] reviewed. Will stop Vicodin due to constipation and restart Tylenol #3 today. Vicodin #47 pills were destroyed today per opioid policy. Script provided for Yony for pharyngitis symptoms, patient is aware to follow up with his PCP is cough symptoms worsens. All questions and concerns have been answered and patient agreed with the plan. Follow up for a pill count in one month and sooner if needed. Medications: New azithromycin (Zithromax Z-Melchor) For 250 mg dose pack: take 500 mg today (day 1), then 250 mg for 4 days (days 2-5) PO 18 tabs 0RF J02.9 - Acute pharyngitis, unspecified Refilled acetaminophen-codeine 300-30 mg Partial Fill upon patient request. 1 tab PO QID 30 days PRN 120 tabs 0RF pain M35.3 - Polymyalgia rheumatica, M47.26 - Other spondylosis with radiculopathy, lumbar region, M96.1 - Postlaminectomy syndrome, not elsewhere classified Discontinued hydrocodone-acetaminophen 7.5-325 mg Partial Fill upon patient request. Discontinued Reason: Patient no longer taking 1 tab PO TID 30 days PRN 90 tabs 0RF pain E11.40 - Type 2 diabetes mellitus with diabetic neuropathy, unspecified, G89.4 - Chronic pain syndrome, M35.3 - Polymyalgia rheumatica, M96.1 - Postlaminectomy syndrome, not elsewhere classified, Z79.891 - shelter (current) use of opiate analgesic Coding Level of Care Code Est Pt Level 4 (14466) Diagnoses Pharyngitis J02.9 Chronic painful diabetic neuropathy E11.40 Bilateral foot pain M79.671; M79.672 Opioid use agreement exists Z79.891 Chronic pain syndrome G89.4 Failed back syndrome of lumbar spine M96.1
[2023-01-30 09:37] VITALS: BP 158/75; PULSE 63; O2SAT 97; BMI 41.8
== END 2023-01-30 10:04 | disposition home or self-care (01) ==
PROVIDERS: PCP Nurse Practitioner Family; Visit Provider Nurse Practitioner Family
DX: G89.4 Chronic pain syndrome (principal); E11.40 Type 2 diabetes mellitus with diabetic neuropathy, unspecified; J02.9 Acute pharyngitis, unspecified; Z79.891 Long term (current) use of opiate analgesic; M79.671 Pain in right foot; M79.672 Pain in left foot; M96.1 Postlaminectomy syndrome, not elsewhere classified
CPT/HCPCS: 99214

== ENCOUNTER → 2023-01-30 09:17 | Outpatient (BNVA) | payer OTHER, SELFPAY | PROVIDERS: PCP Nurse Practitioner Family; Visit Provider Nurse Practitioner Family | DX: Z51.81 Encounter for therapeutic drug level monitoring (principal); M79.671 Pain in right foot; M79.672 Pain in left foot; M96.1 Postlaminectomy syndrome, not elsewhere classified; G89.4 Chronic pain syndrome; J02.9 Acute pharyngitis, unspecified; E11.40 Type 2 diabetes mellitus with diabetic neuropathy, unspecified; Z79.891 Long term (current) use of opiate analgesic | CPT/HCPCS: 99212 ==

== ENCOUNTER 2023-02-07 10:32 | Outpatient (REF) | payer OTHER, SELFPAY ==
[2023-02-07 13:43] LABS: Basophils Percent Auto 1.2 % (0-2); Eosinophils Percent Auto 1.2 % (0-4); Hematocrit 42.2 % (42.0-52.0); Hemoglobin 14.2 g/dl (14.0-18.0); Imm Gran Abs Auto 0.02 X10*3/uL (0.00-0.03); Imm Gran Pct Auto 0.8 % (0.0-0.4); Lymphocytes Absolute Auto 0.5 X10*3/uL (1.2-4.9); Lymphocytes Percent Auto 22.2 % (20-40); MANUAL DIFF FLAG SCAN; Mean Corpuscular HGB Conc 33.6 g/dl (31.0-36.0); Mean Corpuscular Hemoglobin 35.1 pg (27.0-33.0); Mean Corpuscular Volume 104.5 fL (80.0-98.0); Monocytes Absolute Auto 0.3 X10*3/uL (0.1-1.2); Monocytes Percent Auto 13.2 % (2-11); Neutrophils Absolute Auto 1.5 x10*3/uL (2.0-8.3); Neutrophils Percent Auto 61.4 % (45-73); Red Blood Count 4.04 X10*6/uL (4.60-5.80); Red Cell Distribution Width 13.1 % (11.0-16.0); SCAN SMEAR FLAG 1; White Blood Count 2.4 X10*3/uL (4.8-10.8)
[2023-02-07 13:46] LABS: Alanine Aminotransferase 45 U/L (0-40); Aspartate Amino Transferase 25 U/L (5-37); C Reactive Protein < 0.04 mg/dL (< or = 0.50); Estimated Glomerular Filt Rate > 60
[2023-02-07 14:15] LABS: Platelet Count 138 X10*3/uL (160-400)
[2023-02-07 14:16] LABS: Mean Platelet Volume 10.3 fL (9.4-12.4); SLIDE REVIEW VERIFIED
[2023-02-07 14:43] LABS: Erythrocyte Sedimentation Rate 1 MM/HR (0-15)
== END 2023-02-07 10:33 | disposition home or self-care (01) ==
LOC: HO.10HDL 10:32
PROVIDERS: Visit Provider Internal Medicine Rheumatology
DX: M35.3 Polymyalgia rheumatica (principal); Z79.899 Other long term (current) drug therapy
CPT/HCPCS: 36415; 82565; 84450; 84460; 85025; 85652; 86140

== ENCOUNTER 2023-02-13 11:06 | Outpatient (AMB) | payer OTHER, SELFPAY ==
[2023-02-13 11:20] VITALS: BP 112/76; PULSE 78; BMI 41.7
--- NOTE | 2023-02-13 11:20 | A.OFFVIS_ITS ---
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 Required: No Accompanied by: Spouse Allergies methadone Allergy (Intermediate, Verified 02/13/23 11:21) Vomiting ibuprofen [From MOTRIN] Adverse Reaction (Severe, Verified 02/13/23 11:21) ANAPHYLAXIS NSAID Adverse Reaction (Severe, Uncoded 02/13/23 11:21) Anaphylaxis Medication List - Last Reconciled 02/13/23 by Ari Orta MD acetaminophen-codeine 300-30 mg 1 tab PO QID PRN 30 days aspirin 81 mg PO DAILY bethanechol chloride 50 mg PO BEDTIME blood sugar diagnostic (FreeStyle Lite Strips) 1 strip miscellaneous DAILY 30 days capsaicin-skin cleanser 8 % (Qutenza) apply up to 4 (four) CAPSAICIN PATCHES to affected area; remove patch(es) after 30-60 minutes and apply SKIN CLEANSER gel as directed topical cholecalciferol (vitamin D3) 50 mcg PO DAILY 90 days CPAP Machine/Device (CPAP) use daily NS diclofenac sodium 1% 4 grams topical QID PRN epinephrine (EpiPen) 0.3 mg (0.3 mL) IM Q10M PRN folic acid 1 mg PO DAILY ketoconazole 2% topical 2XW lancets (FreeStyle Lancets) 1 gauge topical DAILY 90 days lidocaine-prilocaine 2.5-2.5 % 1 appl topical ONCE 1 day metformin ER 500 mg PO BID 90 days methotrexate sodium 20 mg (8 x 2.5 mg) PO QWEEK metoprolol succinate ER 25 mg PO DAILY naloxone 4 mg/actuation (Narcan) 4 mg intranasal Q2M PRN olopatadine 0.1% 0 drps ophthalmic (eye) oxybutynin chloride ER 10 mg PO DAILY pravastatin 40 mg PO DAILY prednisone 10 mg (2 x 5 mg) PO DAILY ropinirole 0.5 mg PO BEDTIME sarilumab (Kevzara) 200 mg (1.14 mL) subcut Q2W tamsulosin 0.4 mg PO BID 90 days venlafaxine ER 150 mg PO DAILY 90 days HPI HPI Comments History of Present Illness Details Lino is here for follow-up regarding coronary artery disease. He has morbid obesity, polymyalgia rheumatica, rheumatoid arthritis on chronic steroids. In the past, he underwent cardiac workup due to shortness of breath. He had nonobstructive disease in the LAD which is being treated medically. Overall, his weight is just about the same as before. He believes that his shortness of breath is a bit more than usual. Otherwise, he does not have any clear-cut angina. Due to some back issues he is going to go for a spinal cord stimulator trial later this month. 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 Seronegative rheumatoid arthritis Obesity (BMI 30-39.9) Vitamin D deficiency Diabetes type 2, controlled Osteopenia Adrenal 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 Painful total knee replacement, right Surgical History History of esophagogastroduodenoscopy (EGD) H/O colonoscopy Hx of coronary angiogram History of back surgery (~2018) History of knee replacement procedure of right knee History of knee replacement procedure of left knee Hx of cardiac cath Family History Father Angina pectoris Mother Stroke Social History Household Members: Spouse Housing: House Are you a primary clinical care coordinator to a significant other at home: No Do you presently have visiting nurse or other home services: No 75 years or older and lives alone: No Alcohol intake: current Alcohol intake frequency: holidays/special occasions only Alcohol type: beer and hard liquor Patient Tobacco Use Status: Former Tobacco user Quit Date: 1998 Years Smoked: 20 years ago e-Cigarette/Vaping Use: Never Used Second Hand Smoke Exposure: No Substance Use Type: Marijuana service: No Current occupational status: retired Cognitive needs: No Hearing needs: No Vision needs: No Review of Systems Const Denies weakness ENT Denies dizziness Card Denies chest pain, Denies chest pain with activity, Denies syncope, Denies rapid heart rate, Denies pedal edema, Denies edema, Denies leg edema, Denies lightheadedness, Denies palpitations, Denies dyspnea and Denies orthopnea Resp Denies cough and Denies dyspnea GI Denies hematochezia and Denies change in stool character Musc Denies abnormal gait, Denies muscle cramps, Denies muscle weakness, Denies numbness, Denies radiating pain into limb and Denies tingling Neuro Denies abnormal gait, Denies dizziness, Denies syncope, Denies numbness, Denies tingling and Denies weakness Endo Denies palpitations Physical Exam Vital Signs: Last Vital Signs Pulse 78 02/13/23 11:20 BP 112/76 02/13/23 11:20 BMI result Body Mass Index 41.7 Const General: comfortable and no acute distress Orientation/consciousness: patient oriented x3 HEENT Other: Unremarkable Head: Yes normal to inspection Neck Neck: Yes normal visual inspection Chest Chest palpation & inspection: normal inspection of the chest Resp Auscultation: clear to auscultation bilaterally Cardio Palpation: normal PMI Heart sounds: S1 normal heart sound present, S2 normal heart sound present, no gallops, no murmurs and no rubs GI Palpation (GI): Soft to palpation Back/Spine/Pelvis Other: unremarkable Skin General skin exam: no rashes or lesions noted Neuro General: patient oriented x3 Extrem General: Yes normal to inspection Psych Mental Status: mental status grossly normal Office Procedures EKG Details: EKG with sinus rhythm at 78/Min; frequent PACs in a bigeminal pattern. [id number], Complete Assessment & Plan Assessment & Plan (1) Atherosclerotic cardiovascular disease: Code(s): I25.10 - Atherosclerotic heart disease of [place] coronary artery without angina pectoris (2) Morbid obesity: Code(s): E66.01 - Morbid (severe) obesity due to excess calories (3) Atrial arrhythmia: Code(s): I49.8 - Other specified cardiac arrhythmias Plan: Frequent PACs on EKG likely from his obesity as well as MAGDALENA. Increased risk of atrial fibrillation in the future. (4) Preoperative cardiovascular examination: Code(s): Z01.810 - Encounter for preprocedural cardiovascular examination Plan Cardiac catheterization from 2019 showed 50% stenosis in the mid LAD, but IFR itself was not significant. Minor irregularities in the circumflex and right coronary arteries and left main was normal. With regard to his perception of more shortness of breath than usual, more likely from body habitus than anything else. However, as it has been many years since his catheterization and he has numerous risk factors, we can reassess ischemic status. We can do an echocardiogram and stress test. With regard to medications, continue aspirin and statins. He has tried high-dose atorvastatin but could not tolerate and hence he is on a smaller dose of pravastatin. LDL cholesterols 70s to 90s. Lot of his issues come from obesity and he is well aware of that. However, has not been able to lose weight. With regard to upcoming procedure, will await the test results before making ad dendum. Orders: Orders CA lexiscan stress w radha Today I20.9 - Angina pectoris, unspecified NM cardiolite stress test Today R07.2 - Precordial pain CA echo transthoracic complete Today I25.10 - Atherosclerotic heart disease of [place] coronary artery without angina pectoris Medications: Changed From bethanechol chloride 50 mg PO BEDTIME 90 days 90 tabs 1RF R33.9 - Retention of urine, unspecified To bethanechol chloride 50 mg PO BEDTIME R33.9 - Retention of urine, unspecified From oxybutynin chloride ER 10 mg PO DAILY 90 days 90 tabs 1RF To oxybutynin chloride ER 10 mg PO DAILY Coding Level of Care Code Est Pt Level 4 (54045) Diagnoses Atherosclerotic cardiovascular disease I25.10 Morbid obesity E66.01 Atrial arrhythmia I49.8 Preoperative cardiovascular examination Z01.810 CPT Codes EKG - CPT: 37690-Rsvtrvezkreccsgvj, Complete ([id number])
== END 2023-02-13 11:52 | disposition home or self-care (01) ==
PROVIDERS: PCP Nurse Practitioner Family; Visit Provider Internal Medicine
DX: I25.10 Atherosclerotic heart disease of native coronary artery without angina pectoris (principal); E66.01 Morbid (severe) obesity due to excess calories; I49.8 Other specified cardiac arrhythmias; Z01.810 Encounter for preprocedural cardiovascular examination
CPT/HCPCS: 93010; 99214

== ENCOUNTER → 2023-02-13 11:06 | Outpatient (BNVA) | payer OTHER, SELFPAY | PROVIDERS: PCP Nurse Practitioner Family; Visit Provider Internal Medicine | DX: Z01.810 Encounter for preprocedural cardiovascular examination (principal); I25.10 Atherosclerotic heart disease of native coronary artery without angina pectoris; I49.8 Other specified cardiac arrhythmias; E66.01 Morbid (severe) obesity due to excess calories; Z68.41 Body mass index [BMI] 40.0-44.9, adult | CPT/HCPCS: 93005; 99212 ==

== ENCOUNTER → 2023-02-14 14:46 | Outpatient (REF) | payer OTHER, SELFPAY ==
--- NOTE | 2023-02-14 14:52 | CA_ITS ---
Transthoracic Echocardiogram Patient (Last, First, Middle): Lino Nayak K Gender: Male Date of : 1955 Age: 67 Procedure Date: 02/14/2023 Procedure Type: Transthoracic Echocardiogram Location: OP Height: 175.26 cm Weight: 127.01 kg BSA: 2.38 m2 Heart Rate: bpm BP: 132 / 80 mmHg Creative Strategist: Referring MD: Ari Orta MD Solid Fiber Paster Operator: Burak Bruce MD Symptoms: I25.10 - Atherosclerotic heart disease of [place] coronary artery without... Study Quality: Adequate w Contrast ECG Rhythm: Sinus Conclusions: - 1. Normal LV ejection fraction 55 his 3% with moderate LVH with grade 1 diastolic dysfunction 2. Early mild aortic stenosis 3. [id number] enlargement of ascending aorta at 4.4 cm 4. Normal RV systolic pressure 5. No gross pericardial effusion Findings Procedure Information Contrast agent, definity, is being given per protocol without apparent complications. Left Ventricle Normal left ventricular size and systolic function. There is moderately increased left ventricular wall thickness. The visually estimated ejection fraction is between 55-60%. Regional wall motion abnormalities can not be excluded due to suboptimal endocardial definition. Spectral Doppler is indicative of an impaired relaxation filling pattern. E/E prime ratio is <8, consistent with normal filling pressures. Evidence suggests grade I (mild) diastolic dysfunction. Right Ventricle The right ventricle was not well visualized. Atria The left atrium is likely dilated. Interatrial shunt cannot be excluded. The right atrium was not well visualized. Aortic Valve The aortic valve was not well visualized. There is mild calcification of the aortic valve. There is mild aortic valve stenosis. The peak aortic gradient is 19 mmHg.The mean gradient is 7 mmHg. The aortic valve area is 2.05 cm2. There is no aortic valve regurgitation. Mitral Valve The mitral valve was not well visualized. There is no mitral valve regurgitation. There is no mitral valve stenosis. Pulmonic Valve The pulmonic valve was not well visualized. Tricuspid Valve Likely normal tricuspid valve structure and function. There is trace tricuspid valve regurgitation. The right ventricular systolic pressure is normal. The right ventricular systolic pressure is 17 mmHg. Normal right atrial pressure. There is no evidence of pulmonary hypertension. Great Vessels The pulmonary artery was not well visualized. There is mild dilatation of the ascending aorta measuring 4.40 cm. Venous The inferior vena cava is normal in size and collapses greater than 50% with inspiration. Pericardium/Pleural There is no evidence of pericardial effusion. Prior Study Comparison No significant change compared to prior study dated: 08/06/2020. Measurements 2D Linear Measurements IVSd: 1.62 0.6-0.9/0.6-1.0 cm LVIDd: 5.30 3.9-5.3/4.2-5.9 cm LVIDd Index: 2.23 2.4-3.2/2.2-3.1 cm/m2 LVIDs: 3.32 2.0-3.6 cm LVPWd: 1.56 0.7-1.1 cm Ao Root: 2.90 2.1-3.5 cm LA Diam: 4.20 2.7-3.8/3.0-4.0 cm LAIDs Index: 1.76 1.5-2.3 cm/m2 LV Mass: 479.36 67-162/88-224 g LV Mass Index: 201.41 43-95/49-115 g/m2 LVOT Diam: 2.30 3.0+(-)1.3 cm 2D Systolic Function EF 4C: 59.10 >55% EF 2C: 51.50 >55% EF BiP: 54.60 >55% Mitral Valve MV Pk E: 0.58 MV PK A: 0.78 MV Decel Time: 309.00 E/A: 0.70 E'Lateral: 9.46 E'Medial: 4.79 E/E' Med: 12.10 E/E' Lat: 6.10 PHT: 90.00 MVA PHT: 2.44 Decel [place]: 1.87 Aortic Valve AoV Pk [place]: 2.19 AoV Mn [place]: 1.18 AoV VTI: 0.50 AoV Pk Grad: 19.00 Aov Mn Grad: 7.00 CALEB Cont.VTI: 2.05 LVOT LVOT Pk [place]: 0.98 LVOT Mn [place]: 0.63 LVOT VTI: 0.24 LVOT Pk Grad: 4.00 LVOT Mn Grad: 2.00 LVOT Diam: 2.30 LVOT Area: 4.15 Diastolic Function MV Pk E: 0.58 MV Pk A: 0.78 E/A: 0.70 E'Medial: 4.79 E/E' Med: 12.10 E' Laterial: 9.46 E/E' Lat: 6.10 Right Ventricle TAPSE (mm): 26.00 TVS' [place]: 16.00 Tricuspid Valve TR Pk [place]: 1.85 TR Pk Grad: 14.00 RA Press: 3.00 RVSP: 17.00 Great Vessels Aorta Ao Root-2D: 2.90 2.0-3.7 cm Ao Asc: 4.40 2.1-3.4 cm Pulmonary Valve PV Pk [place]: 1.07 Peak PV Grad: 5.00 Updated in Other Vendor System with Status of Final Burak Bruce MD electronically signed on 02/14/2023 4:41:47 PM with status of Final
== END ==
LOC: HO.CARD 14:46
PROVIDERS: PCP Nurse Practitioner Family; Visit Provider Internal Medicine
DX: I25.10 Atherosclerotic heart disease of native coronary artery without angina pectoris (principal)
CPT/HCPCS: 93306; Q9957

== ENCOUNTER → 2023-02-14 14:52 | Outpatient (BNV) | payer OTHER, SELFPAY | PROVIDERS: PCP Nurse Practitioner Family; Visit Provider Internal Medicine Cardiovascular Disease | DX: I25.10 Atherosclerotic heart disease of native coronary artery without angina pectoris (principal) | CPT/HCPCS: 93306 ==

== ENCOUNTER 2023-02-19 08:06 | Outpatient (REF) | payer OTHER, SELFPAY ==
[2023-02-19 10:48] LABS: MANUAL DIFF FLAG NO
[2023-02-19 10:51] LABS: Basophils Percent Auto 0.9 % (0-2); Eosinophils Absolute Auto 0.1 X10*3/uL (0.0-0.4); Eosinophils Percent Auto 3.2 % (0-4); Hematocrit 41.4 % (42.0-52.0); Hemoglobin 13.7 g/dl (14.0-18.0); Imm Gran Abs Auto 0.01 X10*3/uL (0.00-0.03); Imm Gran Pct Auto 0.2 % (0.0-0.4); Lymphocytes Absolute Auto 1.5 X10*3/uL (1.2-4.9); Lymphocytes Percent Auto 35.3 % (20-40); Mean Corpuscular HGB Conc 33.1 g/dl (31.0-36.0); Mean Corpuscular Hemoglobin 34.4 pg (27.0-33.0); Mean Platelet Volume 10.4 fL (9.4-12.4); Monocytes Absolute Auto 0.6 X10*3/uL (0.1-1.2); Monocytes Percent Auto 13.8 % (2-11); Neutrophils Percent Auto 46.6 % (45-73); Platelet Count 124 X10*3/uL (160-400); Red Blood Count 3.98 X10*6/uL (4.60-5.80); Red Cell Distribution Width 12.9 % (11.0-16.0); White Blood Count 4.3 X10*3/uL (4.8-10.8)
== END 2023-02-19 08:07 | disposition home or self-care (01) ==
LOC: HO.10HDL 08:06
PROVIDERS: Visit Provider Internal Medicine Rheumatology
DX: Z79.899 Other long term (current) drug therapy (principal)
CPT/HCPCS: 36415; 85025

== ENCOUNTER 2023-02-21 09:54 | Outpatient (AMB) | payer OTHER, SELFPAY ==
--- NOTE | 2023-02-21 10:02 | A.OFFVIS_ITS ---
Intake Vital Signs 02/21/23 10:04 Height 5 ft 9 in Weight 285 lb 11.505 oz BMI 42.2 BP 110/72 Blood Pressure Location Lt brachial Position Sitting Pulse 87 Pulse Source Pulse Oximeter Temp 97.2 F Temp Source Skin Pulse Oximetry (%) 98 Oxygen Delivery Method Room Air Intake Visit Reasons: pmr Intake Note: Patient last seen 12/14/22, presents today for follow up and test results. Shipper Receiver Required: No Accompanied by: Spouse Allergies methadone Allergy (Intermediate, Verified 02/21/23 10:10) Vomiting ibuprofen [From MOTRIN] Adverse Reaction (Severe, Verified 02/21/23 10:10) ANAPHYLAXIS NSAID Adverse Reaction (Severe, Uncoded 02/21/23 10:10) Anaphylaxis HPI HPI Comments History of Present Illness Details The patient returns with his for evaluation of his PMR. He remains on prednisone at 10 mg once a day, methotrexate 20 mg weekly, folic acid 1 mg daily. We had him hold the Kevzara that he was taking 200 mg every 2 weeks because of a low white count. He has not noticed any change in symptoms but I do not think he has missed a dose of the Kevzara yet. We did repeat the blood work and the white count came back to normal. He reports the joints are doing well with current regimen of though he admits that most of the improvement is from the prednisone. He has plans for a nerve stimulator to be implanted in his back for his neuropathic pain in the legs. 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 Seronegative rheumatoid arthritis Obesity (BMI 30-39.9) Vitamin D deficiency Diabetes type 2, controlled Osteopenia Adrenal 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 Painful total knee replacement, right Surgical History History of esophagogastroduodenoscopy (EGD) H/O colonoscopy Hx of coronary angiogram History of back surgery (~2017) History of knee replacement procedure of right knee History of knee replacement procedure of left knee Hx of cardiac cath Family History Father Angina pectoris Mother Stroke Social History Household Members: Spouse Housing: House Are you a primary career services officer to a significant other at home: No Do you presently have visiting nurse or other home services: No 75 years or older and lives alone: No Alcohol intake: current Alcohol intake frequency: holidays/special occasions o nly Alcohol type: beer and hard liquor Patient Tobacco Use Status: Former Tobacco user Quit Date: 1998 Years Smoked: 20 years ago e-Cigarette/Vaping Use: Never Used Second Hand Smoke Exposure: No Substance Use Type: Marijuana service: No Current occupational status: retired Cognitive needs: No Hearing needs: No Vision needs: No Review of Systems Const Details: Negative for appetite change, weight change, fever, chills, malaise and fatigue Eyes Details: Negative for vision change, dry eyes,headaches and dizziness ENT Details: Negative for hearing change, tinnitus, oral ulcer, nose bleeds and oral dryness. Card Details: Negative chest pain, edema and syncope Resp Details: Negative for SOB, cough and wheezing GI Details: Negative indigestion/heartburn, nausea, abdominal pain, bowel changes, diarrhea, constipation and bloody stool. Endo Details: Negative for polyuria and polydypsia Memo/Lymph Details: Negative for excessive bruising or bleeding. Physical Exam Vital Signs: Last Vital Signs Temp 97.2 F 02/21/23 10:04 Pulse 87 02/21/23 10:04 BP 110/72 02/21/23 10:04 Pulse Ox 98 02/21/23 10:04 Oxygen Delivery Method Room Air 02/21/23 10:04 BMI result Body Mass Index 42.2 APPEARANCE: Patient in no acute distress JOINT EXAM: Cervical Spine:? Full range of motion with mild discomfort; no tenderness. Thoracic Spine: No scoliosis.? No tenderness on palpation. Lumbar Spine:? Alignment normal.? Full range of motion without pain, no tenderness. Hands:? LEFT:? No MCP swelling or tenderness.? There is some thickening and tenderness at the 2nd and 3rd PIP joints.? Otherwise no swelling, tenderness, erythema or warmth throughout the hand.? RIGHT:? No MCP swelling or tenderness.? There is some slight thickening at the 2nd and 3rd PIP joint, the 3rd PIP has mild tenderness.? Otherwise no other swelling, tenderness, erythema or warmth throughout the hand. Wrists:? Right:? Mild pain with flexion or extension at 75 degrees but no tenderness or swelling.? Left:? Slight pain with flexion or extension at 75 degrees.? Mild tenderness without swelling.? Elbows: Normal pain-free range of motion without tenderness, swelling, increased warmth or erythema. Shoulders:? LEFT: Full range of motion, with slight discomfort at the extremes of normal range of motion.? There is no tenderness, weakness, swelling, increased warmth or erythema. ? RIGHT: Full range of motion, slight pain reported with abduction more than 120 degrees, he is able to complete range of motion fully despite sl ight pain. ? No tenderness, weakness, swelling, increased warmth or erythema. Hips:? Full range of motion with some mild lumbar discomfort with extremes of rotation. No groin pain with motion. Hip bursa: No tenderness. Knees:? Right:? Normal pain-free range of motion without tenderness, swelling, increased warmth or erythema.? There is no effusion or crepitation.? Left:? Pain-free range of motion with no effusion, tenderness, redness or warmth. Ankles:? Normal pain-free range of motion without tenderness, swelling, increased warmth or erythema. Feet:? Normal pain-free range of motion without tenderness, swelling, increased warmth or erythema. ?? 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 prednisone and eventually methotrexate added. 2020 Humira added with ? improvmenet 10/[address] Humira Code(s): M35.3 - Polymyalgia rheumatica Plan The patient today says he feels pretty good without significant joint pains. The white count did return to normal after about 10 days. The leukopenia could be from the methotrexate, the Kevzara or both. I do not think he had missed a dose of the Kevzara but I think it could restarted and I will decrease the methotrexate to 15 mg weekly. The transaminases were also elevated suggesting that that could be related to methotrexate. We will see him back in about 5 weeks with lab work before that visit. I warned him that a low white count could predispose him to infection and he should promptly seek medical evaluation if he gets fever. He will for now keep with the 10 mg daily prednisone. One might consider further taper the prednisone 1 mg steps in another month or 2. Orders: Orders Erythrocyte Sedimentation Rate Today M35.3 - Polymyalgia rheumatica Comprehensive Met. 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 (current) use of unspecified immunomodulators and immunosuppressants C Reactive Protein Today M35.3 - Polymyalgia rheumatica Medications: Changed From methotrexate sodium 20 mg (8 x 2.5 mg) PO QWEEK 96 tabs 1RF M06.00 - Rheumatoid arthritis without rheumatoid factor, unspecified site To methotrexate sodium 15 mg (6 x 2.5 mg) PO QWEEK 72 tabs 1RF M06.00 - Rh eumatoid arthritis without rheumatoid factor, unspecified site Coding Level of Care Code Est Pt Level 4 (14271) Diagnoses Long-term use of immunosuppressant medication Z79.60 Osteoarthritis of hands, bilateral M19.041; M19.042 Polymyalgia rheumatica M35.3
[2023-02-21 10:04] VITALS: BP 110/72; PULSE 87; TEMP 36.2; O2SAT 98; BMI 42.2
== END 2023-02-21 10:45 | disposition home or self-care (01) ==
PROVIDERS: PCP Nurse Practitioner Family; Visit Provider Internal Medicine Rheumatology
DX: Z79.60 Long term (current) use of unspecified immunomodulators and immunosuppressants (principal); M19.041 Primary osteoarthritis, right hand; M19.042 Primary osteoarthritis, left hand; M35.3 Polymyalgia rheumatica
CPT/HCPCS: 99214

== ENCOUNTER → 2023-02-21 09:54 | Outpatient (BNVA) | payer OTHER, SELFPAY | PROVIDERS: PCP Nurse Practitioner Family; Visit Provider Internal Medicine Rheumatology | DX: M35.3 Polymyalgia rheumatica (principal); M19.041 Primary osteoarthritis, right hand; M19.042 Primary osteoarthritis, left hand; Z79.60 Long term (current) use of unspecified immunomodulators and immunosuppressants | CPT/HCPCS: 99212 ==

== ENCOUNTER → 2023-02-22 07:54 | Outpatient (REF) | payer OTHER, SELFPAY ==
--- NOTE | ~2023-02-22 | NM_ITS ---
Myocardial perfusion study Indication: Precordial chest pain to evaluate for myocardial ischemia Technique: The patient was brought in for a Lexiscan perfusion study on 02/22/2023. Patient performed low-level exercise and was injected 0.4 mg of Lexiscan intravenously. Within a minute of injection, 45 mCi of sestamibi was given intravenously. Images were obtained using the SPECT gamma camera interlaced with the gating device. Images were obtained in supine position. Resting perfusion study was performed on 02/23/2023. Patient was administered 45 mCi of sestamibi intravenously at rest. Images were then obtained in supine position. Images obtained with and without CT attenuation. Total DLP 192 mGy-cm. Images were processed with the software and compared side to side in short axis, horizontal long axis and vertical long axis views. Findings: The stress perfusion study showed non attenuated images show mildly reduced uptake in the basal inferior and apical wall of the LV myocardium. Remainder of the LV myocardium is normally perfused. Attenuation corrected images show moderately reduced uptake in the apex of the LV myocardium.. The gated study shows reduced LV systolic function with calculated LVEF of 39%. LV cavity is mildly dilated size. The gated study shows normal systolic wall thickening and contraction of segments. Resting study shows no change in perfusion pattern compared to stress perfusion. Gating at rest reveals normal systolic wall motion with ejection fraction at 34%. The findings are consistent with no clear reversible defect suggestive of ischemia. NM/NM cardiolite stress test Impression: 1. Myocardial perfusion imaging study shows likely normal myocardial perfusion 2. Gated LVEF is 39% with stress although visually appears to be normal, consider echocardiogram 3. Transient ischemic dilatation not present but LV cavity is dilated EKG is nondiagnostic for ischemia
--- NOTE | 2023-02-22 07:56 | CA_ITS ---
Acquisition Time: 2023-02-22 07:58:15 Total Exercise Time: 00:02:00 Test Indications: Chest Pain Medications: SEE H Protocol: LEXISCAN Max HR: 082 BPM 54% of Pred: 151 BPM Max BP: 154/074 mmHG Max Work Load: 1.0 METS Pharmacological stress test with lexiscan injection while sitting and marching, with mild SOB, no chest discomfort, with isolated PACs, with normotensive response to injection, with nondiagnoisitic EKGs. Aminophylline 75mg IVP given to reverse Lexiscan. Nuclear images pending. Test reviewed with Dr. Bruce Referred By: Ari Orta Overread By: Barb Soto
== END ==
LOC: HO.CARD 07:54
PROVIDERS: PCP Nurse Practitioner Family; Visit Provider Internal Medicine
DX: R07.2 Precordial pain (principal); I20.9 Angina pectoris, unspecified
CPT/HCPCS: 78452; 93017; A9500; J0280; J2785

== ENCOUNTER → 2023-02-22 07:56 | Outpatient (BNV) | payer OTHER, SELFPAY | PROVIDERS: PCP Nurse Practitioner Family; Visit Provider Nurse Practitioner | DX: R07.2 Precordial pain (principal) | CPT/HCPCS: 78452; 93016; 93018 ==

== ENCOUNTER 2023-02-28 11:22 | Day surgery (SDC) | payer OTHER, SELFPAY ==
[2023-02-22 14:19] VITALS: BMI 41.6
--- NOTE | ~2023-02-28 | FL_ITS ---
EXAMINATION: XR FLUOROSCOPY WITH IMAGES CLINICAL INFORMATION: Lumbar spinal cord stim trial. COMPARISON: None available. TECHNIQUE: Fluoroscopy Supervised By: Dr. Shaka Mead. Fluoroscopy Time: 4.7 minutes. Cumulative Dose: 186 mGy. DAP: 23.1 Gycm2. Images: 8. FINDINGS: Images demonstrate leads projecting over the lower thoracic spinal canal FL/FL guidance in OR IMPRESSION: Fluoroscopy guidance for spinal cord stim trial.
[2023-02-28 11:41] VITALS: BP 144/52; PULSE 57; RESP 18; TEMP 36.8; O2SAT 98
[2023-02-28 13:04] LABS: MRSA Nasal PCR NEGATIVE (Negative); SA Nasal PCR NEGATIVE (Negative)
--- NOTE | 2023-02-28 13:42 | P.BOP_ITS ---
Brief Operative Note Date of Service: 02/28/23 Pre-op diagnosis: Painful diabetic neuropathy, post-laminectomy syndrome Post-op diagnosis: same Procedure: Lumbar spinal cord stimulation trial Implants: Nevro SCS trial leads Surgeon: Shaka Mead MD Anesthesia: MAC Was an Singing Telegram Performer used for this Procedure?: No Estimated blood loss (mL): 5 Pathology: none sent Condition: stable Disposition: PACU
--- NOTE | 2023-02-28 13:42 | MHC.SHP ---
Pre-Procedural Eval Section A Date of Service: 02/28/23 The patient is an INPATIENT: No Changes since office visit: Yes Patient answered all questions The History & Physical has been completed within 30 days and I have reviewed it.: Yes Section B Chief Complaint: Type 2 diabetes mellitus,Postlaminectomy syndrome, Relevant Family History (Specify if Yes): No Relevant Social History: None Present Medications: see Short Stay Collaborative assessment Medical History: No relevant PMH History of Previous Operations: No relevant previous surgery Allergies: Allergies Allergy/AdvReac Type Severity Reaction Status Date / Time NSAIDS (Non-Steroidal Allergy Severe Anaphylaxis Verified 02/22/23 14:00 Anti-Inflamma methadone Allergy Intermediate Vomiting Verified 02/21/23 10:10 Review of Systems Sugical H&P ROS: Negative: Constitution, Cardiovascular and Respiratory Exam Surgical H&P Exam: Normal: HEENT, Normal: Heart and Normal: Lungs Plan Diagnosis/Plan: Unchanged I have reviewed the history and physical and performed a pertinent physical examination on my patient. No changes have occurred unless specified. Time Spent With Patient Time: Total time managing care of this patient today ____ minutes.
--- NOTE | 2023-02-28 13:42 | W.PM.OPN ---
Operative Note Operative Note Date of Service: 02/28/23 Narrative: Percutaneous Spinal Cord Stimulator Trial, Thoracolumbar After obtaining written consent, pre-procedure blood pressure and heart rate were recorded and are in the nursing record for review. A peripheral IV was started. Antibiotics, cefazolin 2 gram, were given intraoperatively. The patient was placed in a prone position.? The patient was sedated by the anesthesiologist. The thoracolumbar area was widely prepped with ChloraPrep, allowed to dry and draped in sterile fashion. Fluoroscopy was used to identify the target interlaminar spaces and appropriate needle insertion sites. The skin and subcutaneous tissue was anesthetized with 0.5% lidocaine. Two separate 14 gauge epi med epidural needles were then advanced from this point in a paramedian approach to the epidural space opening at T12/L1 interspace. There was a equivocal loss of resistance in the left parasagittal position so the needle was probed with a flexible guidewire. Upon inserting the guidewire into the epidural space, a pop was felt followed by a retrograde flow of clear fluid likely indicating a potential dural puncture. The wire and the needle was subsequently withdrawn. The loss of resistance to saline in the right parasagittal position was unremarkable. No paresthesias were elicited with needle placement. The 1x8 stimulator lead wire was then threaded to the top of T8 in the right parasagittal position. The lead advanced midline and dorsal.? For the left side, the L1/L2 interspace was then targeted and a 14 gauge epi med needle was advanced using loss of resistance to saline technique. Once successful loss of resistance to saline was achieved without evidence of dural puncture, the 1x8 stimulator lead was threaded to the top of T9 in the left parasagittal position. The lead advanced midline and dorsal. The needles were then completely removed under live fluoroscopy. The stimulator wires were then secured steri strips, gauze and tegaderm for skin dressing. The patient tolerated the procedure well. Following the procedure the patient's vital signs were stable. He denied any abnormal paresthesias in his legs. Lower extremity strength was preserved. The patient was counseled regarding watching for potential postdural puncture headache. He was encouraged to increase oral fluid intake and use caffeine and acetaminophen as needed. The patient was discharged home in good condition after being given discharge instructions. Time Out: Immediately prior to the procedure, the following was verbally confirmed that there is a signed consent form and that the correct patient, planned procedure, site and side are consistent with documentation and that necessary equipment and/or blood products are available prior to the start of the case. Complications: Possible inadvertent lumbar dural puncture EBL: <5 cc
--- NOTE | 2023-02-28 13:50 | P.CONAN_ITS ---
[facility] Active Problems Active Problems: All Active Problems (Updated 02/22/23 @ 14:16 by Thi Sutton RN) Atrial arrhythmia (Acute) Diastasis recti (Acute) Hiatal hernia (Acute) Chronic pain syndrome (Acute) Disorder of epiglottis (Acute) Subacromial bursitis of left shoulder joint (Acute) Dysphagia (Acute) Long-term use of immunosuppressant medication (Acute) Kidney stone on left side (Acute) OAB (overactive bladder) (Acute) BPH loc w urin obs/LUTS (Acute) Sleep apnea (Acute) HTN (hypertension) (Acute) Polymyalgia rheumatica (Acute) Osteoarthritis of hands, bilateral (Acute) Chronic painful diabetic neuropathy (Acute) PAD (peripheral artery disease) (Acute) Opioid use agreement exists (Acute) Other spondylosis with radiculopathy, lumbar region (Acute) Failed back syndrome of lumbar spine (Acute) Type 2 diabetes mellitus with unspecified complications (Acute) Trochanteric bursitis of both hips (Acute) Adrenal insufficiency (Acute) Type 2 diabetes mellitus with peripheral neuropathy (Acute) Diabetes mellitus due to underlying condition with diabetic neuropathy, without long-term current use of insulin (Acute) Iatrogenic [place]'s disease (Acute) Morbid obesity (Acute) Atherosclerotic cardiovascular disease (Acute) 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) Seronegative rheumatoid arthritis (Acute) Vitamin D deficiency (Acute) Osteopenia (Acute) Past Medical History Medical History Polymyalgia rheumatica PAD (peripheral artery disease) Ascending aorta dilatation Sleep apnea Type 2 diabetes mellitus with peripheral neuropathy Diabetes mellitus due to underlying condition with diabetic neuropathy, without long-term current use of insulin Arterial insufficiency Iatrogenic Dennys's disease Morbid obesity Atherosclerotic cardiovascular disease Diabetic neuropathy associated with type 2 diabetes mellitus 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 Seronegative rheumatoid arthritis Obesity (BMI 30-39.9) Vitamin D deficiency Diabetes type 2, controlled Osteopenia Adrenal 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 Painful total knee replacement, right Family History Family History Father Angina pectoris Mother Stroke Family history of problems with anesthesia: No Surgical History Surgical History History of esophagogastroduodenoscopy (EGD) H/O colonoscopy Hx of coronary angiogram History of back surgery (~2018) History of knee replacement procedure of right knee History of knee replacement procedure of left knee Hx of cardiac cath History of Problems with Anesthesia: No Social History Social History Household Members: Spouse Housing: House Are you a primary career and guidance counselor to a significant other at home: No Do you presently have visiting nurse or other home services: No Alcohol intake: current Alcohol intake frequency: does not drink Alcohol type: beer and hard liquor Patient Tobacco Use Status: Former Tobacco user Quit Date: 1998 Years Smoked: 20 years ago e-Cigarette/Vaping Use: Never Used Second Hand Smoke Exposure: No Use of substances other than those prescribed or required for medical reasons: No Substance Use Type: Marijuana Are you DNR?: No Advance Directives: No Advance Directives Information Provided: Yes Advance Directives on File: No service: No Current occupational status: retired Cognitive needs: No Hearing needs: No Vision needs: No Meds Allergies Allergy/AdvReac Type Severity Reaction Status Date / Time NSAIDS (Non-Steroidal Allergy Severe Anaphylaxis Verified 02/22/23 14:00 Anti-Inflamma methadone Allergy Intermediate Vomiting Verified 02/21/23 10:10 Home Medications Medication Instructions Recorded Confirmed Last Taken Type olopatadine 0.1 % eye drops 1 drp ophthalmic (eye) DAILY 09/01/21 02/22/23 Unknown History bethanechol chloride 50 mg tablet 50 mg PO BEDTIME 02/13/23 02/22/23 Unknown History oxybutynin chloride 10 mg 10 mg PO DAILY 02/13/23 02/22/23 Unknown History tablet,extended release 24 hr lidocaine-prilocaine 2.5 %-2.5 % 1 appl topical DAILY neuropathy 02/22/23 02/22/23 Unknown History topical cream Exam Height,Weight and Vital Signs: Height 5 ft 9 in Weight 127.913 kg Last Vital Signs Temp 98.2 F 02/28/23 11:41 Pulse 57 02/28/23 11:41 Resp 18 02/28/23 11:41 BP 144/52 H 02/28/23 11:41 Pulse Ox 98 02/28/23 11:41 O2 Del Method Room Air 02/28/23 11:41 Pertinent Lab Results Pertinent Lab Results: Laboratory Tests 02/28/23 11:31 Nasal Screen MRSA (PCR) NEGATIVE Nasal S. aureus Screen NEGATIVE Nasal MRSA/S.aureus Interp SEE NOTE Airway Mallampati Class: III TM Dist: >3cm Neck ROM: Full Heart: rrr Lungs: cleaar Assessment and Plan Final Anesthetic Review Family History of Problems with Anesthesia: No History of Problems with Anesthesia: No NPO: Yes ASA Class: IV Final Preanesthetic Review: No Changes in Pt Med Stat, Meds/Allgs Chart Reviewed, Consent Obtained/Reviewed and Anes Risks/Benef Reviewed Patient Risk: High Procedure Risk: Low Anesthetic Plan Anesthetic Plan: MAC: Disposition: Standard PACU
[2023-02-28 14:09] LABS: Glucose, Whole Blood 118 mg/dL (60-115)
[2023-02-28 15:33] VITALS: BP 130/63; PULSE 75; RESP 10; TEMP 36.8; O2SAT 96
[2023-02-28 15:48] VITALS: BP 142/61; PULSE 65; RESP 20; TEMP 36.3; O2SAT 96
== END 2023-02-28 16:10 | disposition home or self-care (01) ==
PROVIDERS: Registered Nurse Emergency; PCP Nurse Practitioner Family; Visit Provider Internal Medicine
PROC: (CPT 63650; principal; 2023-02-28 13:10)
DX: M96.1 Postlaminectomy syndrome, not elsewhere classified (principal); E11.40 Type 2 diabetes mellitus with diabetic neuropathy, unspecified; G89.4 Chronic pain syndrome; M79.671 Pain in right foot; M79.672 Pain in left foot; Z79.891 Long term (current) use of opiate analgesic; I10 Essential (primary) hypertension; J02.9 Acute pharyngitis, unspecified; M35.3 Polymyalgia rheumatica; M06.00 Rheumatoid arthritis without rheumatoid factor, unspecified site; I25.10 Atherosclerotic heart disease of native coronary artery without angina pectoris; Z68.41 Body mass index [BMI] 40.0-44.9, adult; E66.01 Morbid (severe) obesity due to excess calories; I77.1 Stricture of artery; Z79.631 Long term (current) use of antimetabolite agent; Z79.899 Other long term (current) drug therapy; Z88.5 Allergy status to narcotic agent; Z87.891 Personal history of nicotine dependence; Z88.8 Allergy status to other drugs, medicaments and biological substances; Z98.890 Other specified postprocedural states
CPT/HCPCS: 63650 ×2; 82947; 87640; 87641; C1897; J0690; J2250; J2704; J2795

== ENCOUNTER → 2023-02-28 11:22 | Outpatient (BNV) | payer OTHER, SELFPAY | PROVIDERS: PCP Nurse Practitioner Family; Visit Provider Internal Medicine | DX: M96.1 Postlaminectomy syndrome, not elsewhere classified (principal); E11.40 Type 2 diabetes mellitus with diabetic neuropathy, unspecified | CPT/HCPCS: 63650 ==

== ENCOUNTER 2023-03-06 09:22 | Outpatient (AMB) | payer OTHER, SELFPAY ==
[2023-03-06 09:29] VITALS: PULSE 58; RESP 12; O2SAT 95; BMI 41.3
--- NOTE | 2023-03-06 09:29 | A.OFFVIS_ITS ---
Intake Vital Signs 03/06/23 09:29 Height 5 ft 9 in Weight 280 lb BMI 41.3 Blood Pressure Location Lt brachial Position Sitting Respiration 12 Pulse 58 Pulse Source Pulse Oximeter Pulse Oximetry (%) 95 Oxygen Delivery Method Room Air Intake Visit Reasons: S/p Nevro SCS Trial 02/28/23/confirmed Allergies NSAIDS (Non-Steroidal Anti-Inflamma Allergy (Severe, Verified 02/22/23 14:00) Anaphylaxis methadone Allergy (Intermediate, Verified 02/21/23 10:10) Vomiting HPI HPI Comments History of Present Illness Details Patient presents today 1 week status post lumbar SCS trial on 02/28/[address] Mead. Patient is accompanied by his . Rickie spring from [facility] is present during this visit as well. Patient reports 100% pain relief for one week of trial with significant improvement in his daily activities and functioning, mobility, and improved tolerance for prolonged standing and walking, better movements and improved sleep. Patient reports he was able to tolerate longer walking and walk faster. He was able to sleep through the night as well. Reports no pain in his bilateral lower legs, no pain in his right foot, and 1.5/10 left foot pain, and no pain in his low back. Reports 50% numbness reductions in his legs and feet and able to curl his toes and feel his arches. Patient's reports patient did not complain of pain for the week of SCS trial at all. Patient was hesitant for SCS leads removal as SCS trial has provided him significant pain relief which he have not had for a very long time and was not able to obtain this much of pain relief with his opioid therapy. Patient would like to proceed with [facility] SCS implant for a permanent pain management of his chronic low back and bilateral leg/foot pain. Denies any recent cough, cold, infection, fever or other significant changes in medical history since last office visit. The tape was removed. The stimulating battery pad was disconnected from the epidural leads. These sites of the insertion were cleansed with ChloraPrep and steri-strips were removed. The epidural leads were removed and the tips were intact. No erythema, swelling, tenderness or pathological discharge was noted. Bacitracin ointment and dry sterile dressing were applied. Patient also had pill count done today. He is supposed to have #0 pills, in his possession has #101 pills. This demonstrates a responsible attitude in regards to the medication regimen. Patient plans to titrate off opiods completely after SCS implant. He reports not taking opiod medication during SCS trial. Past Procedures: 02/28/23: Lumbar SCS trial with Nevro SC S trial-100% pain 12/06/21-12/05/22: Qutenza every 3 month s-minimal pain relief [facility] Medical History Polymyalgia rheumatica PAD (peripheral artery disease) Ascending aorta dilatation Sleep apnea Type 2 diabetes mellitus with peripheral neuropathy Diabetes mellitus due to underlying condition with diabetic neuropathy, without long-term current use of insulin Arterial insufficiency Iatrogenic Dennys's disease Morbid obesity Atherosclerotic cardiovascular disease Diabetic neuropathy associated with type 2 diabetes mellitus 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 Seronegative rheumatoid arthritis Obesity (BMI 30-39.9) Vitamin D deficiency Diabetes type 2, controlled Osteopenia Adrenal 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 Painful total knee replacement, right Surgical History History of esophagogastroduodenoscopy (EGD) H/O colonoscopy Hx of coronary angiogram History of back surgery (~2018) History of knee replacement procedure of right knee History of knee replacement procedure of left knee Hx of cardiac cath Family History Father Angina pectoris Mother Stroke Social History Household Members: Spouse Housing: House Are you a primary neurocritical care physician to a significant other at home: No Do you presently have visiting nurse or other home services: No 75 years or older and lives alone: No Alcohol intake: current Alcohol intake frequency: does not drink Alcohol type: beer and hard liquor Patient Tobacco Use Status: Former Tobacco user Quit Date: 1998 Years Smoked: 20 years ago e-Cigarette/Vaping Use: Never Used Second Hand Smoke Exposure: No Substance Use Type: Marijuana service: No Current occupational status: retired Cognitive needs: No Hearing needs: No Vision needs: No Review of Systems Const All systems reviewed & are unremarkable except as noted in HPI and below Physical Exam Vital Signs: Last Vital Signs Pulse 58 03/06/23 09:29 Resp 12 03/06/23 09:29 Pulse Ox 95 03/06/23 09:29 Oxygen Delivery Method Room Air 03/06/23 09:29 BMI result Body Mass Index 41.3 General: Appears afebrile. Alert and oriented. Mood and affect appropriate. Follows and participates in conversation appropriately. Respiratory effort is unlabored. No cough. Able to transition from sit to stand unassisted. GI Inspection: Yes normal to inspection, Yes obesity and Yes visible herniation Palpation (GI): Soft to palpation, nontender and no guarding Back/Spine/Pelvis Other: Nevro SCS leads removed with tips intact. Cervical Spine: cervical ROM normal and No Cervical spine tenderness Thoracic/Lumbar Spine: thoracic and lumbar spine normal to inspection, Thoracic/lumbar spine scar(s), thoraco-lumbar ROM normal, Lasegue's sign negative, straight leg raise negative bilaterally, No thoracic spinal tenderness and No lumbar spinal tenderness Pelvis: no buttock tenderness Extrem General: Yes capillary refill normal, Yes no clubbing, cyanosis or edema and Yes no calf tenderness Psych Appearance: grossly normal and well kempt Mental Status: mental status grossly normal Speech and movement: Normal speech and movement present and Clear speech present Affect: normal affect Attitude: cooperative Thought process: Normal thought process present Thought content: Normal thought content present, suicidality (none), no hallucinations and No Depressive thoughts present Insight: Good insight present (Psych) Judgement: Good judgement present (Psych) Results Reviewed Results Reviewed: XR LUMBOSACRAL SPINE 05/08/2019 CLINICAL INFORMATION: Lower back pain status-post injury. COMPARISON: MRI lumbar spine dated 02/05/2018 and radiographs dated 03/12/2017. TECHNIQUE: 3 views of the lumbosacral spine were obtained. FINDINGS: Bone mineralization is normal. There is a stable slight anterior wedge compression fracture of the L1 vertebral body. There is a mild disc space narrowing and vacuum disc phenomenon extending from T12-L1 through L5-S1. There is a multilevel mild to moderate lower thoracic and lumbar spondylosis. The posterior elements are intact. There are aortoiliac atherosclerotic calcifications. No foreign body is seen. IMPRESSION: 1. There is a very mild anterior wedge compression fracture of the L1 vertebral body, unchanged from the MRI examination of 02/05/2018. 2. There is multilevel lower thoracic and lumbar degenerative disc disease and spondylosis. MR LUMBAR SPINE WITHOUT CONTRAST 02/05/2018 CLINICAL INFORMATION: Low back pain with bilateral hip soreness. COMPARISON: None TECHNIQUE: MRI of the lumbar spine was obtained using routine sequences without contrast. FINDINGS: VERTEBRAL BODIES AND PARASPINAL STRUCTURES: Marrow signal is mildly heterogeneous. There are no compression fractures or subluxations. Mild to moderate multilevel disc space narrowing noted with degenerative endplate Schmorl's nodes. Mild endplate edematous changes noted at the L1 level superiorly, at L5 superiorly and inferiorly, and superiorly at the S1 level. The paraspinal soft tissues appear normal. There are mild degenerative changes of the SI joints. CONUS MEDULLARIS AND CAUDA EQUINA: Normal, terminating at the level of L1. No lower cord signal abnormality is seen. The cauda equina nerve roots are normal. SPINAL LEVELS: L1-L2: Moderate loss of disc height with a diffuse disc bulge and small central protrusion. No central canal stenosis or foraminal narrowing. L2-L3: Mild loss of disc height with a broad-based right subarticular to right foraminal disc protrusion resulting in moderate encroachment. Diffuse disc bulge and mild central canal stenosis. Moderate left foraminal narrowing. L3-L4: Broad-based disc bulge present with bilateral foraminal disc protrusions distorting the exiting L3 nerve roots, right greater than left side. Additional small central disc protrusion contributing to thecal sac deformity. Severe central canal stenosis and thecal sac compression with a generalized disc bulge and hypertrophic facet arthropathy. L4-L5: Central disc protrusion mildly distorting the ventral thecal sac. Hypertrophic facet arthropathy and disc bulge encroach upon the subarticular zones at the site of the traversing L5 nerve roots. Mild central canal stenosis. Mild to moderate foraminal narrowing, worse on the left side. L5-S1: Focal central disc protrusion with mild mass effect upon the right S1 nerve root. No central canal stenosis. Hypertrophic facet arthropathy present. Right foraminal disc protrusion distorts the right L5 nerve root with [id number] encroachment. Bulging disc also abuts the left L5 nerve root in the foramen. IMPRESSION: Multilevel, multifactorial degenerative changes in the lumbar spine, most severe at L3-L4 where there is severe central canal stenosis and thecal sac compression with bilateral foraminal disc protrusions distorting the exiting L3 nerve roots. Small central disc protrusion as well. 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 Schedule for Nevro SCS Implant with sedation and fluoroscopy given good relief seen from trial. Justification for interventional therapy: ? Patient with average pain > 6/10 ? Patient has exhausted conservative therapy ? Lumbar SCS trial-100% back pain and bilateral leg pain relief for 1 week The risks, consequences, alternatives, and benefits of various treatment options were discussed with the patient in great detail, including conservative management, injections and procedures. 2. Patient has shown accountability for his medication regimen and the pill count was accurate. There is no evidence of misuse, abuse or diversion at this time. MassPat reviewed. I will hold off on refilling his opioid medication for now as patient has been using it infrequently and did not use it all during SCS 1-week trial. Patient will call us to let us know when he is down to 5-10 pills, and I will send a refill at that time depending on his usage if needed. Plan to titrate off opioids once SCS implant procedure. All questions and concerns have been answered and patient agreed with the plan. Follow up for a pill count in one month and sooner if needed. Coding Level of Care Code Est Pt Level 4 (82714) Diagnoses Chronic painful diabetic neuropathy E11.40 Bilateral foot pain M79.671; M79.672 Opioid use agreement exists Z79.891 Chronic pain syndrome G89.4 Failed back syndrome of lumbar spine M96.1
== END 2023-03-06 10:00 | disposition home or self-care (01) ==
PROVIDERS: PCP Nurse Practitioner Family; Visit Provider Nurse Practitioner Family
DX: E11.40 Type 2 diabetes mellitus with diabetic neuropathy, unspecified (principal); M79.671 Pain in right foot; M79.672 Pain in left foot; Z79.891 Long term (current) use of opiate analgesic; G89.4 Chronic pain syndrome; M96.1 Postlaminectomy syndrome, not elsewhere classified
CPT/HCPCS: 99024

== ENCOUNTER → 2023-03-06 09:22 | Outpatient (BNVA) | payer OTHER, SELFPAY | PROVIDERS: PCP Nurse Practitioner Family; Visit Provider Nurse Practitioner Family | DX: E11.40 Type 2 diabetes mellitus with diabetic neuropathy, unspecified (principal); M96.1 Postlaminectomy syndrome, not elsewhere classified; G89.4 Chronic pain syndrome; M79.671 Pain in right foot; M79.672 Pain in left foot; Z79.891 Long term (current) use of opiate analgesic | CPT/HCPCS: 99212 ==

== ENCOUNTER 2023-03-22 09:50 | Outpatient (REF) | payer OTHER, SELFPAY ==
[2023-03-22 10:22] LABS: MANUAL DIFF FLAG NO
[2023-03-22 10:39] LABS: Basophils Percent Auto 0.5 % (0-2); Eosinophils Absolute Auto 0.1 X10*3/uL (0.0-0.4); Hematocrit 42.1 % (42.0-52.0); Hemoglobin 14.2 g/dl (14.0-18.0); Imm Gran Abs Auto 0.01 X10*3/uL (0.00-0.03); Imm Gran Pct Auto 0.3 % (0.0-0.4); Mean Corpuscular HGB Conc 33.7 g/dl (31.0-36.0); Mean Corpuscular Hemoglobin 34.5 pg (27.0-33.0); Mean Corpuscular Volume 102.2 fL (80.0-98.0); Mean Platelet Volume 10.5 fL (9.4-12.4); Monocytes Absolute Auto 0.4 X10*3/uL (0.1-1.2); Monocytes Percent Auto 11.9 % (2-11); Neutrophils Absolute Auto 2.2 x10*3/uL (2.0-8.3); Neutrophils Percent Auto 58.3 % (45-73); Platelet Count 113 X10*3/uL (160-400); Red Blood Count 4.12 X10*6/uL (4.60-5.80); Red Cell Distribution Width 12.7 % (11.0-16.0); White Blood Count 3.7 X10*3/uL (4.8-10.8)
[2023-03-22 11:00] LABS: Alanine Aminotransferase 30 U/L (0-40); Albumin Level 4.2 g/dL (3.5-5.0); Alkaline Phosphatase 41 U/L (39-117); Anion Gap 14 (12-20); Aspartate Amino Transferase 18 U/L (5-37); Bilirubin Total 1.1 mg/dL (0.0-1.0); Blood Urea Nitrogen 19 mg/dL (9-16); C Reactive Protein < 0.04 mg/dL (< or = 0.50); Calcium 9.5 mg/dL (8.4-10.2); Carbon Dioxide 27 mmol/L (22-29); Chloride 104 mmol/L (96-108); Estimated Glomerular Filt Rate > 60; Glucose Random 154 mg/dL (60-115); Potassium 4.1 mmol/L (3.3-5.1); Sodium 141 mmol/L (135-145); Total Protein 6.2 g/dL (6.5-8.0)
[2023-03-22 11:54] LABS: Erythrocyte Sedimentation Rate 1 MM/HR (0-15)
== END 2023-03-22 09:51 | disposition home or self-care (01) ==
LOC: HO.10HDL 09:50
PROVIDERS: Visit Provider Internal Medicine Rheumatology
DX: M35.3 Polymyalgia rheumatica (principal); Z79.60 Long term (current) use of unspecified immunomodulators and immunosuppressants
CPT/HCPCS: 36415; 80053; 85025; 85652; 86140

== ENCOUNTER 2023-03-28 14:21 | Outpatient (AMB) | payer OTHER, SELFPAY ==
--- NOTE | 2023-03-28 14:27 | A.OFFVIS_ITS ---
Intake Vital Signs 03/28/23 14:37 Height 5 ft 9 in Weight 294 lb 12.128 oz BMI 43.5 BP 162/60 H Blood Pressure Location Rt brachial Position Sitting Pulse 57 Pulse Source Pulse Oximeter Temp 97.2 F Temp Source Skin Pulse Oximetry (%) 96 Oxygen Delivery Method Room Air Intake Visit Reasons: PMR Intake Note: Patient last seen by Dr Bustillo on 02/21/23 presents today for follow up and test results. Reports rachael shoulder clicking. Would like shoulder injections today. [facility] Director Required: No Accompanied by: Spouse Allergies NSAIDS (Non-Steroidal Anti-Inflamma Allergy (Severe, Verified 03/28/23 14:38) Anaphylaxis methadone Allergy (Intermediate, Verified 03/28/23 14:38) Vomiting Medication List - Last Reconciled 03/28/23 by Jamir Sandhu MD acetaminophen-codeine 300-30 mg 1 tab PO QID PRN 30 days aspirin 81 mg PO DAILY bethanechol chloride 50 mg PO BEDTIME blood sugar diagnostic (FreeStyle Lite Strips) 1 strip miscellaneous DAILY 30 days cholecalciferol (vitamin D3) 50 mcg PO DAILY 90 days CPAP Machine/Device (CPAP) use daily NS diclofenac sodium 1% 4 grams topical QID PRN epinephrine (EpiPen) 0.3 mg (0.3 mL) IM Q10M PRN folic acid 1 mg PO DAILY ketoconazole 2% 1 appl topical 2XW lancets (FreeStyle Lancets) 1 gauge topical DAILY 90 days lidocaine-prilocaine 2.5-2.5 % 1 appl topical DAILY metformin ER 500 mg PO BID 90 days methotrexate sodium 15 mg (6 x 2.5 mg) PO QWEEK metoprolol succinate ER 25 mg PO DAILY naloxone 4 mg/actuation (Narcan) 4 mg intranasal Q2M PRN olopatadine 0.1% 1 drp ophthalmic (eye) DAILY oxybutynin chloride ER 10 mg PO DAILY pravastatin 40 mg PO DAILY prednisone 10 mg (2 x 5 mg) PO DAILY ropinirole 0.5 mg PO BEDTIME sarilumab (Kevzara) 200 mg (1.14 mL) subcut Q2W tamsulosin 0.4 mg PO BID 90 days venlafaxine ER 150 mg PO DAILY 90 days HPI HPI Comments History of Present Illness Details 68-year-old male with PMR returns to [facility] with his for evaluation of PMR. He is currently on Kevzara every other week, methotrexate 15 mg weekly and prednisone 10 mg daily. States that he has been doing relatively stable overall except for recently has been having bilateral shoulder pain, stiffness and clicking, symptoms are a little worse on the left. Requesting injections. States that he had shoulder injections back in October of 2022 with good results. Recently had a spinal cord stimulator trial that worked quite well. He is scheduled for stimulator placement May 02. Most recent history by Dr. Bustillo 02/2023: The patient returns with his for evaluation of his PMR. He remains on prednisone at 10 mg once a day, methotrexate 20 mg weekly, folic acid 1 mg daily. We had him hold the Kevzara that he was taking 200 mg every 2 weeks because of a low white count. He has not noticed any change in symptoms but I do not think he has missed a dose of the Kevzara yet. We did repeat the blood work and the white count came back to normal. He reports the joints are doing well with current regimen of though he admits that most of the improvement is from the prednisone. He has plans for a nerve stimulator to be implanted in his back for his neuropathic pain in the legs. COUNTS INCLUDE 234 BEDS AT THE [facility] Medical History Polymyalgia rheumatica PAD (peripheral artery disease) Ascending aorta dilatation Sleep apnea Type 2 diabetes mellitus with peripheral neuropathy Diabetes mellitus due to underlying condition with diabetic neuropathy, without long-term current use of insulin Arterial insufficiency Iatrogenic Dennys's disease Morbid obesity Atherosclerotic cardiovascular disease Diabetic neuropathy associated with type 2 diabetes mellitus longterm methotrexate user Seronegative rheumatoid arthritis Obesity (BMI 30-39.9) Vitamin D deficiency Diabetes type 2, controlled Osteopenia Adrenal 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 Painful total knee replacement, right Surgical History History of esophagogastroduodenoscopy (EGD) H/O colonoscopy Hx of coronary angiogram History of back surgery (~2018) History of knee replacement procedure of right knee History of knee replacement procedure of left knee Hx of cardiac cath Family History Father Angina pectoris Mother Stroke Social History Household Members: Spouse Housing: House Are you a primary career discovery teacher to a significant other at home: No Do you presently have visiting nurse or other home services: No 75 years or older and lives alone: No Alcohol intake: current Alcohol intake frequency: does not drink Alcohol type: beer and hard liquor Patient Tobacco Use Status: Former Tobacco user Quit Date: 1998 Years Smoked: 20 years ago e-Cigarette/Vaping Use: Never Used Second Hand Smoke Exposure: No Substance Use Type: Marijuana service: No Current occupational status: retired Cognitive needs: No Hearing needs: No Vision needs: No Review of Systems Musc Reports arthralgias, Reports joint swelling and Reports numbness (Feet) Neuro Reports numbness (Feet) Physical Exam Vital Signs: Last Vital Signs Temp 97.2 F 03/28/23 14:37 Pulse 57 03/28/23 14:37 BP 162/60 H 03/28/23 14:37 Pulse Ox 96 03/28/23 14:37 Oxygen Delivery Method Room Air 03/28/23 14:37 BMI result Body Mass Index 43.5 Const General: cooperative, healthy appearing and comfortable Nutritional Appearance: obese morbidly obese Orientation/consciousness: patient oriented x3 Limitations: no limitations HEENT Head: Yes normocephalic and Yes atraumatic Mouth: moist mucous membranes Resp Effort & Inspection: normal respiratory effort and able to speak in complete sentences Auscultation: clear to auscultation bilaterally Cardio Rate: regular rate Skin General skin exam: dry skin Neuro General: patient oriented x3 Extrem Other: Osteoarthritic changes of both hands with no active synovitis Positive empty can test on the left Office Procedures Joint Injection/Drain Joint Injection/Drain Primary Site: left shoulder Prep: site was prepped using sterile technique and ethochloride spray was applied Injected: 40 mg of, Kenalog and other (2 mL of 1% lidocaine) Approach Used: posterolateral Procedure: The patient tolerated the procedure well Coding Details: With the patient's consent the left shoulder was prepped with ChloraPrep and alcohol. Under a topical ethyl chloride spray the left subacromial space was injected with 40 mg of triamcinolone and 2 cc of 1% lidocaine. The patient tolerated the procedure without any acute adverse effects. 60084 - Large joint Procedure code (CPT) selection complete Assessment & Plan Assessment & Plan (1) Polymyalgia rheumatica: Comment: Initially diagnosed as RA?onset 2019. prednisone and eventually methotrexate added. 2020 Humira added with ? improvmenet 10/[address] of Humira Code(s): M35.3 - Polymyalgia rheumatica Plan: This is a 68-year-old male with PMR who returns for follow-up. On methotrexate 15 mg weekly, prednisone 10 mg daily and Kevzara every other week. Symptoms are rather stable. Has been having bilateral shoulder pain, little worse on the left, which is likely due to subacromial bursitis/glenohumeral osteoarthritis. This was injected in clinic with Kenalog today. Continue with Kevzara the other week, methotrexate 15 mg weekly, prednisone 10 mg daily. Continue with folic acid daily. Patient states that he is going for spinal cord stimulator procedure 05/02 Labs before next visit in 2 months. Will attempt to taper prednisone next visit. (2) Long-term use of immunosuppressant medication: Code(s): Z79.60 - longterm (current) use of unspecified immunomodulators and immunosuppressants Plan: Neutropenia and transaminitis improved with reducing methotrexate dose. His white count could also fluctuate due to Kevzara. Will continue to monitor safety labs periodically. Plan I spent 35 minutes reviewing patient's chart, evaluating patient, ordering diag nostic workup, counseling patient and documenting in the chart Orders: Orders Erythrocyte Sedimentation Rate 2 Months M06.9 - Rheumatoid arthritis, unspecified TITO Reflex Titer and Pattern 2 Months M06.9 - Rheumatoid arthritis, unspecified AMB Joint Injection/Aspiration Today M75.52 - Bursitis of left shoulder Complete Blood Count Auto Diff 2 Months M06.9 - Rheumatoid arthritis, unspecified Comprehensive Met. Panel 2 Months M06.9 - Rheumatoid arthritis, unspecified C Reactive Protein 2 Months M06.9 - Rheumatoid arthritis, unspecified Protein Electrophoresis, Serum 2 Months M06.9 - Rheumatoid arthritis, unspecified Rheumatoid Factor 2 Months M06.9 - Rheumatoid arthritis, unspecified Cyclic Citrullinated Peptide 2 Months M06.9 - Rheumatoid arthritis, unspecified Coding Level of Care Code Est Pt Level 4 (07152) Diagnoses Polymyalgia rheumatica M35.3 Long-term use of immunosuppressant medication Z79.60 CPT Codes Coding - 26885 Large joint: 76066 - Large joint ([id number])
[2023-03-28 14:37] VITALS: BP 162/60; PULSE 57; TEMP 36.2; O2SAT 96; BMI 43.5
== END 2023-03-28 15:16 | disposition home or self-care (01) ==
PROVIDERS: PCP Nurse Practitioner Family; Visit Provider Student in an Organized Health Care Education/Training Program
DX: M35.3 Polymyalgia rheumatica (principal); Z79.60 Long term (current) use of unspecified immunomodulators and immunosuppressants; M25.512 Pain in left shoulder
CPT/HCPCS: 20610; 99214

== ENCOUNTER → 2023-03-28 14:21 | Outpatient (BNVA) | payer OTHER, SELFPAY | PROVIDERS: PCP Nurse Practitioner Family; Visit Provider Student in an Organized Health Care Education/Training Program | DX: M35.3 Polymyalgia rheumatica (principal); Z79.60 Long term (current) use of unspecified immunomodulators and immunosuppressants | CPT/HCPCS: 20610; 99212 ==

== ENCOUNTER 2023-05-02 09:18 | Day surgery (SDC) | payer OTHER, SELFPAY ==
--- NOTE | 2023-05-01 08:53 | HO.ANESPROP2 ---
Documented by User: Donna Chow NP 05/01/23 09:15 HPI - Anesthesia Eval Consult details Narrative: 68yo M for Lumbar Spinal Cord Stimulation Implant s/p trial 02/2023 with MAC Cardiac cleared prior to trial PMR. Prednisone 10mg daily, methotrexate weekly, PMFSH Active Problems Active Problems: All Active Problems (Updated 03/28/23 @ 15:45 by Jamir Sandhu MD) Atrial arrhythmia (Acute) Diastasis recti (Acute) Hiatal hernia (Acute) Chronic pain syndrome (Acute) Disorder of epiglottis (Acute) Subacromial bursitis of left shoulder joint (Acute) Dysphagia (Acute) Long-term use of immunosuppressant medication (Acute) Kidney stone on left side (Acute) OAB (overactive bladder) (Acute) BPH loc w urin obs/LUTS (Acute) Sleep apnea (Acute) HTN (hypertension) (Acute) Polymyalgia rheumatica (Acute) Osteoarthritis of hands, bilateral (Acute) Chronic painful diabetic neuropathy (Acute) PAD (peripheral artery disease) (Acute) Opioid use agreement exists (Acute) Other spondylosis with radiculopathy, lumbar region (Acute) Failed back syndrome of lumbar spine (Acute) Type 2 diabetes mellitus with unspecified complications (Acute) Trochanteric bursitis of both hips (Acute) Adrenal insufficiency (Acute) Type 2 diabetes mellitus with peripheral neuropathy (Acute) Diabetes mellitus due to underlying condition with diabetic neuropathy, without long-term current use of insulin (Acute) Iatrogenic Dennys's disease (Acute) Morbid obesity (Acute) Atherosclerotic cardiovascular disease (Acute) 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 (Acute) Seronegative rheumatoid arthritis (Acute) Vitamin D deficiency (Acute) Osteopenia (Acute) Past Medical History Medical History Polymyalgia rheumatica PAD (peripheral artery disease) Ascending aorta dilatation Sleep apnea Type 2 diabetes mellitus with peripheral neuropathy Diabetes mellitus due to underlying condition with diabetic neuropathy, without long-term current use of insulin Arterial insufficiency Iatrogenic Dennys's disease Morbid obesity Atherosclerotic cardiovascular disease Diabetic neuropathy associated with type 2 diabetes mellitus 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 Seronegative rheumatoid arthritis Obesity (BMI 30-39.9) Vitamin D deficiency Diabetes type 2, controlled Osteopenia Adrenal 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 Painful total knee replacement, right Family History Family History Father Angina pectoris Mother Stroke Family history of problems with anesthesia: No Surgical History Surgical History History of esophagogastroduodenoscopy (EGD) H/O colonoscopy Hx of coronary angiogram History of back surgery (~2018) History of knee replacement procedure of right knee History of knee replacement procedure of left knee Hx of cardiac cath History of Problems with Anesthesia: No Social History Social History Household Members: Spouse Housing: House Are you a primary nurse behavioral health care to a significant other at home: No Do you presently have visiting nurse or other home services: No Alcohol intake: current Alcohol intake frequency: does not drink Alcohol type: beer and hard liquor Patient Tobacco Use Status: Former Tobacco user Quit Date: 1998 Years Smoked: 20 years ago e-Cigarette/Vaping Use: Never Used Second Hand Smoke Exposure: No Substance Use Type: Marijuana Advance Directives: No Advance Directives Information Provided: Yes service: No Current occupational status: retired Cognitive needs: No Hearing needs: No Vision needs: No Meds Allergies Allergy/AdvReac Type Severity Reaction Status Date / Time NSAIDS (Non-Steroidal Allergy Severe Anaphylaxis Verified 03/28/23 14:38 Anti-Inflamma methadone Allergy Intermediate Vomiting Verified 03/28/23 14:38 Home Medications Medication Instructions Recorded Confirmed Last Taken Type olopatadine 0.1 % eye drops 1 drp ophthalmic (eye) DAILY 09/01/21 02/22/23 Unknown History bethanechol chloride 50 mg tablet 50 mg PO BEDTIME 02/13/23 02/22/23 Unknown History oxybutynin chloride 10 mg 10 mg PO DAILY 02/13/23 02/22/23 Unknown History tablet,extended release 24 hr lidocaine-prilocaine 2.5 %-2.5 % 1 appl topical DAILY neuropathy 02/22/23 02/22/23 Unknown History topical cream Exam Pertinent Lab Results Pertinent Lab Results: Laboratory Tests 03/22/23 09:55 WBC 3.7 L Hgb 14.2 Hct 42.1 Plt Count 113 L Sodium 141 Potassium 4.1 Chloride 104 Carbon Dioxide 27 BUN 19 H Creatinine 1.07 Narrative Narrative: EKG 02/2023 sinus rhythm at 78/Min; frequent PACs in a bigeminal pattern ECHO 02/2023 Conclusions: - 1. Normal LV ejection fraction 55 his 3% with moderate LVH with grade 1 diastolic dysfunction 2. Early mild aortic stenosis 3. Sizl-aj-owqiutdi enlargement of ascending aorta at 4.4 cm 4. Normal RV systolic pressure 5. No gross pericardial effusion NM cardiolite stress test 02/2023 Impression: 1. Myocardial perfusion imaging study shows likely normal myocardial perfusion 2. Gated LVEF is 39% with stress although visually appears to be normal, consider echocardiogram 3. Transient ischemic dilatation not present but LV cavity is dilated EKG is nondiagnostic for ischemia Assessment and Plan Assessment Anesthesia Assessment: Chart Reviewed Final Anesthetic Review Family History of Problems with Anesthesia: No History of Problems with Anesthesia: No Documented by User: Mele Lin MD 05/02/23 10:11 [facility] Past Medical History Medical History Polymyalgia rheumatica PAD (peripheral artery disease) Ascending aorta dilatation Sleep apnea Type 2 diabetes mellitus with peripheral neuropathy Diabetes mellitus due to underlying condition with diabetic neuropathy, without long-term current use of insulin Arterial insufficiency Iatrogenic [place]'s disease Morbid obesity Atherosclerotic cardiovascular disease Diabetic neuropathy associated with type 2 diabetes mellitus 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 Seronegative rheumatoid arthritis Obesity (BMI 30-39.9) Vitamin D deficiency Diabetes type 2, controlled Osteopenia Adrenal 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 Painful total knee replacement, right Functional capacity: independent ambulation Family History Family History Father Angina pectoris Mother Stroke Surgical History Surgical History History of esophagogastroduodenoscopy (EGD) H/O colonoscopy Hx of coronary angiogram History of back surgery (~2018) History of knee replacement procedure of right knee History of knee replacement procedure of left knee Hx of cardiac cath Social History Social History Household Members: Spouse Housing: House Are you a primary nurse behavioral health care to a significant other at home: No Do you presently have visiting nurse or other home services: No Alcohol intake: current Alcohol intake frequency: does not drink Alcohol type: beer and hard liquor Patient Tobacco Use Status: Former Tobacco user Quit Date: 1998 Years Smoked: 20 years ago e-Cigarette/Vaping Use: Never Used Second Hand Smoke Exposure: No Substance Use Type: Marijuana Advance Directives: No Advance Directives Information Provided: Yes service: No Current occupational status: retired Cognitive needs: No Hearing needs: No Vision needs: No Meds Allergies Allergy/AdvReac Type Severity Reaction Status Date / Time NSAIDS (Non-Steroidal Allergy Severe Anaphylaxis Verified 03/28/23 14:38 Anti-Inflamma methadone Allergy Intermediate Vomiting Verified 03/28/23 14:38 Home Medications Medication Instructions Recorded Confirmed Last Taken Type olopatadine 0.1 % eye drops 1 drp ophthalmic (eye) DAILY 09/01/21 02/22/23 Unknown History bethanechol chloride 50 mg tablet 50 mg PO BEDTIME 02/13/23 02/22/23 Unknown History oxybutynin chloride 10 mg 10 mg PO DAILY 02/13/23 02/22/23 Unknown History tablet,extended release 24 hr lidocaine-prilocaine 2.5 %-2.5 % 1 appl topical DAILY neuropathy 02/22/23 02/22/23 Unknown History topical cream Exam Airway Mallampati Class: III TM Dist: >3cm Neck ROM: Full Loose/Missing/Broken Teeth: No (rrr) Lungs: ccta b/l Assessment and Plan Final Anesthetic Review NPO: Yes ASA Class: III Final Preanesthetic Review: No Changes in Pt Med Stat, Meds/Allgs Chart Reviewed, Consent Obtained/Reviewed and Anes Risks/Benef Reviewed Patient Risk: Intermediate Procedure Risk: Intermediate Anesthetic Plan Anesthetic Plan: GA Disposition: Standard PACU
[2023-05-02] VITALS (9 sets, daily range): BP systolic 130–178; BP diastolic 65–92; PULSE 61–84; RESP 14–18; TEMP 36.4–36.6; O2SAT 93–99; BMI 43.0
--- NOTE | ~2023-05-02 | FL_ITS ---
EXAMINATION: XR FLUOROSCOPY WITH IMAGES CLINICAL INFORMATION: Fluoroscopic assistance for spinal cord stimulation implant COMPARISON: 02/28/2023 TECHNIQUE: Fluoroscopy Supervised By: Shaka Mead Fluoroscopy Time: 3 minutes. Cumulative Dose: 175 mGy. DAP: 18.3 Gycm2. Images: 4 FINDINGS: 4 images obtained by C-arm camera 4 fluoroscopic assistance during placement of STIM implant by Dr. Shaka Mead FL/FL guidance in OR IMPRESSION: Fluoroscopic assistance
[2023-05-02 10:38] LABS: Glucose, Whole Blood 141 mg/dL (60-115)
[2023-05-02] MEDS: Lactated Ringers 1,000 ML 100 ML IVCONT (10:44)
--- NOTE | 2023-05-02 11:52 | MHC.SHP ---
Pre-Procedural Eval Section A - 24 Hr Update-Section A only Date of Service: 05/02/23 The patient is an INPATIENT: No Changes since office visit: Yes Patient answered all questions The patient has been examined within 24 hours of the surgical procedure. The History & Physical has been completed within 30 days and I have reviewed it.: No Section B - Complete if H&P > 30 days Chief Complaint: Postlaminectomy syndrome,type 2 mellitus Relevant Family History (Specify if Yes): No Relevant Social History: None Present Medications: see Short Stay Collaborative assessment Medical History: No relevant PMH History of Previous Operations: Relevant previous surgery/procedure and date(s) (lumbar surgery) Allergies: Allergies Allergy/AdvReac Type Severity Reaction Status Date / Time NSAIDS (Non-Steroidal Allergy Severe Anaphylaxis Verified 05/02/23 10:14 Anti-Inflamma methadone Allergy Intermediate Vomiting Verified 05/02/23 10:14 Review of Systems Sugical H&P ROS: Negative: Constitution, Cardiovascular and Respiratory Exam Surgical H&P Exam: Normal: HEENT, Normal: Heart and Normal: Lungs Plan Diagnosis/Plan: Unchanged I have reviewed the history and physical and performed a pertinent physical examination on my patient. No changes have occurred unless specified. Time Spent With Patient Time: Total time managing care of this patient today ____ minutes.
[2023-05-02 15:12] LABS: MRSA Nasal PCR NEGATIVE (Negative); SA Nasal PCR NEGATIVE (Negative)
--- NOTE | 2023-05-02 16:24 | PM.OP ---
Brief Operative Note Date of Service: 05/02/23 Pre-op diagnosis: Painful diabetic neuropathy Post-op diagnosis: same Procedure: Spinal cord stimulation implant Implants: Nevro HFX spinal cord stimulation system Surgeon: Shaka Meda MD Anesthesia: GETA Was an Telephone Lines Repairer used for this Procedure?: No Estimated blood loss (mL): 20 Pathology: none sent Condition: stable Disposition: PACU
--- NOTE | 2023-05-02 16:26 | W.PM.OPN ---
Operative Note Operative Note Date of Service: 05/02/23 Narrative: Lumbar SCS Implant After proper identification, the patient was brought to the operating room. After induction of general anesthesia, the patient was placed in the prone position with appropriate support and bolstering. Care was taken during positioning to protect and pad all pressure points. Cefazolin 3 gm was given as preoperative antibiotic prophylaxis. The back was prepped and draped in the usual sterile fashion using Chloroprep. The fluoroscope unit was sterilely draped and brought into field, the vertebral target and the L1/L2 interspace was localized with fluoroscopy. An 8 cm incision was then made in the midline back with a 15 blade between the L2 and L3 spinous processes. Electrocautery was used to dissect down to the prevertebral fascia. Two sets of 0 Tycron sutures per electrode were placed for the anchor stitches. Two 14-gauge introducer epimed needles were then advanced using AP and contralateral oblique fluoroscopy views to the target interspace on either side of the inferior spinous process. Upon loss of resistance, the leads were easily threaded into the dorsal epidural space.?The left electrode was then threaded up to the top of T9 vertebral body. The right electrode was threaded to the top of T8 vertebral body. We then backed out the needle under live fluoroscopy, verifying that the electrodes were in the correct position and we then used the locking anchors to secure the electrodes down to the prevertebral fascia, tying them down with the Tycron sutures. At this point, a pocket for the generator was made in the right iliac fossa. A horizontal 2-inch incision was made using a 15 blade and combination of sharp dissection, blunt dissection and electrocautery was used. A pocket was created about half an inch below the skin. The pocket was then irrigated with normal saline containing vancomycin. Hemostasis was attained with electrocautery. We then tunneled the electrodes from the back into the pocket using the tunneling device. The electrodes were then connected to the generator. A single Tycron suture was thrown across the floor of the pocket and through the medial anchor hold of the generator. After interrogation with impedance check the generator was placed into the subcutaneous pocket and the anchoring suture tied. Care was taken not to get fluid in the generator connector block. The neurostimulator generator was placed parallel to the skin at a depth of half an inch along for successful telemetry and impedence. The pocket was reirrigated and closed with the generator name facing out. Final electronic analysis was performed to ensure proper functioning. Positioning of the leads were rechecked and confirmed with fluoroscopy and images saved. Both incisions were closed with a deep layer of running 2-0 Vicryl sutures, the deep dermal layer with 3-0 Vicryl sutures, simple interrupted and a running 4-0 Monocryl for the subcutaneous layer. We then secured the incision with Dermabond, steristrips and OpSites over both incisions. The patient tolerated the procedure well. The patient was then flipped back into the supine position, woken up and brought to the PACU in stable condition. Complications: None EBL: 20 mL
== END 2023-05-02 17:30 | disposition home or self-care (01) ==
PROVIDERS: Registered Nurse Emergency; PCP Nurse Practitioner Family; Visit Provider Internal Medicine
PROC: (CPT 63685; principal; 2023-05-02 11:30)
DX: M96.1 Postlaminectomy syndrome, not elsewhere classified (principal); E11.40 Type 2 diabetes mellitus with diabetic neuropathy, unspecified; G89.4 Chronic pain syndrome; M79.672 Pain in left foot; M79.671 Pain in right foot; M35.3 Polymyalgia rheumatica; M06.00 Rheumatoid arthritis without rheumatoid factor, unspecified site; E24.2 Drug-induced Cushing's syndrome; E27.49 Other adrenocortical insufficiency; I73.9 Peripheral vascular disease, unspecified; I25.10 Atherosclerotic heart disease of native coronary artery without angina pectoris; E66.01 Morbid (severe) obesity due to excess calories; Z68.41 Body mass index [BMI] 40.0-44.9, adult; Z79.84 Long term (current) use of oral hypoglycemic drugs; Z79.891 Long term (current) use of opiate analgesic; Z79.1 Long term (current) use of non-steroidal anti-inflammatories (NSAID); Z79.899 Other long term (current) drug therapy; Z88.8 Allergy status to other drugs, medicaments and biological substances; Z87.891 Personal history of nicotine dependence
CPT/HCPCS: 63685; 63650 ×2; 82947; 87640; 87641; C1713; C1778; C1787; C1816; J0330; J0690; J2405; J2704; J3010; J3370

== ENCOUNTER → 2023-05-02 09:18 | Outpatient (BNV) | payer OTHER, SELFPAY | PROVIDERS: PCP Nurse Practitioner Family; Visit Provider Internal Medicine | DX: E11.40 Type 2 diabetes mellitus with diabetic neuropathy, unspecified (principal); M96.1 Postlaminectomy syndrome, not elsewhere classified | CPT/HCPCS: 63650; 63685 ==

== ENCOUNTER 2023-05-07 09:24 | Outpatient (AMB) | payer OTHER, SELFPAY ==
--- NOTE | 2023-05-07 09:25 | A.OFFVIS_ITS ---
Intake Vital Signs 05/07/23 09:39 Height 5 ft 9 in Weight 291 lb 8 oz BMI 43.0 BP 192/84 H Blood Pressure Location Rt brachial Position Sitting Pulse 56 Pulse Source Pulse Oximeter Pulse Oximetry (%) 98 Oxygen Delivery Method Room Air Intake Visit Reasons: S/p NEVRO SCS Implant 05/02/23/ pill count Intake Note: Lino comes in today for a pill count to Tylenol #3, patient should have 0 tablets and presents with 66 tablets which he last took yesterday 05/06/23 at 5am. Pain today 2/10. Chief Sales Officer Required: No Accompanied by: Spouse Allergies NSAIDS (Non-Steroidal Anti-Inflamma Allergy (Severe, Verified 05/07/23 09:40) Anaphylaxis methadone Allergy (Intermediate, Verified 05/07/23 09:40) Vomiting HPI HPI Comments History of Present Illness Details Patient presents today 1 week status post lumbar SCS Nevro Implant on 05/02/[address] Mead. Patient is accompanied by his . Patient reports 80% pain relief since procedure with significant improvement in his daily activities and functioning, mobility, and improved tolerance for prolonged standing and walking, better movements and improved sleep. Patient reports his bilateral foot pain is improved but he continues to experience numbness and tingling sensations. Unfortunately, Kailee Damian was not present today but easily reachable via phone to update with patient's current status. Rickie will be in contact with patient later this afternoon to go over device programming that has been already set up in place. Patient reports current pain at 2/10. He reports taking Tylenol #3 post-operatively for few days with good relief. Patient reports he is able to tolerate longer walking and improved sleep. Denies any recent cough, cold, infection, fever or other significant changes in medical history since last office visit. The tape was removed. The wound sites were cleansed with ChloraPrep, dermabond skin glue and Steri-strips are intact. No erythema, swelling, redness, tenderness or pathological discharge was noted. Bacitracin ointment and dry sterile dressing were applied. Patient also had pill count done today. He is supposed to have #0 pills, in his possession has #66 pills. This demonstrates a responsible attitude in regards to the medication regimen. Patient plans to titrate off opiods once SCS device will be adjusted to a full programming. Past Procedures: 05/02/23: Lumbar SCS Implant with Nevro- 80% pain relief, 1st week post op 02/28/23: Lumbar SCS Trial with Nevro-10 0% pain relief 12/06/21-12/05/22: Qutenza every 3 month s-minimal pain relief [facility] Medical History Polymyalgia rheumatica PAD (peripheral artery disease) Ascending aorta dilatation Sleep apnea Type 2 diabetes mellitus with peripheral neuropathy Diabetes mellitus due to underlying condition with diabetic neuropathy, without long-term current use of insulin Arterial insufficiency Iatrogenic Winfield's disease Morbid obesity Atherosclerotic cardiovascular disease Diabetic neuropathy associated with type 2 diabetes mellitus 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 Seronegative rheumatoid arthritis Obesity (BMI 30-39.9) Vitamin D deficiency Diabetes type 2, controlled Osteopenia Adrenal 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 Painful total knee replacement, right Surgical History History of esophagogastroduodenoscopy (EGD) H/O colonoscopy Hx of coronary angiogram History of back surgery (~2017) History of knee replacement procedure of right knee History of knee replacement procedure of left knee Hx of cardiac cath Family History Father Angina pectoris Mother Stroke Social History Household Members: Spouse Housing: House Are you a primary infant childcare provider to a significant other at home: No Do you presently have visiting nurse or other home services: No 75 years or older and lives alone: No Alcohol intake: current Alcohol intake frequency: does not drink Alcohol type: beer and hard liquor Patient Tobacco Use Status: Former Tobacco user Quit Date: 1998 Years Smoked: 20 years ago e-Cigarette/Vaping Use: Never Used Second Hand Smoke Exposure: No Substance Use Type: Marijuana service: No Current occupational status: retired Cognitive needs: No Hearing needs: No Vision needs: No Review of Systems Const All systems reviewed & are unremarkable except as noted in HPI and below Physical Exam Vital Signs: Last Vital Signs Pulse 56 05/07/23 09:39 BP 192/84 H 05/07/23 09:39 Pulse Ox 98 05/07/23 09:39 Oxygen Delivery Method Room Air 05/07/23 09:39 BMI result Body Mass Index 43.0 General: Appears afebrile. Alert and oriented. Mood and affect appropriate. Follows and participates in conversation appropriately. Respiratory effort is unlabored. No cough. Able to transition from sit to stand unassisted. Ambulates with bilaterally normal heel strike and toe off. All incisions are clean dry and intact.?Steri-Strips are intact. Dressings were changed in the office today. Psych Appearance: grossly normal and well kempt Mental Status: mental status grossly normal Speech and movement: Normal speech and movement present and Clear speech present Affect: normal affect Attitude: cooperative Thought process: Normal thought process present Thought content: Normal thought content present, suicidality (none), no hallucinations and No Depressive thoughts present Insight: Good insight present (Psych) Judgement: Good judgement present (Psych) Results Reviewed Results Reviewed: XR LUMBOSACRAL SPINE 05/08/2019 CLINICAL INFORMATION: Lower back pain status-post injury. COMPARISON: MRI lumbar spine dated 02/05/2018 and radiographs dated 03/12/2017. TECHNIQUE: 3 views of the lumbosacral spine were obtained. FINDINGS: Bone mineralization is normal. There is a stable slight anterior wedge compression fracture of the L1 vertebral body. There is a mild disc space narrowing and vacuum disc phenomenon extending from T12-L1 through L5-S1. There is a multilevel mild to moderate lower thoracic and lumbar spondylosis. The posterior elements are intact. There are aortoiliac atherosclerotic calcifications. No foreign body is seen. IMPRESSION: 1. There is a very mild anterior wedge compression fracture of the L1 vertebral body, unchanged from the MRI examination of 02/05/2018. 2. There is multilevel lower thoracic and lumbar degenerative disc disease and spondylosis. MR LUMBAR SPINE WITHOUT CONTRAST 02/05/2018 CLINICAL INFORMATION: Low back pain with bilateral hip soreness. COMPARISON: None TECHNIQUE: MRI of the lumbar spine was obtained using routine sequences without contrast. FINDINGS: VERTEBRAL BODIES AND PARASPINAL STRUCTURES: Marrow signal is mildly heterogeneous. There are no compression fractures or subluxations. Mild to moderate multilevel disc space narrowing noted with degenerative endplate Schmorl's nodes. Mild endplate edematous changes noted at the L1 level superiorly, at L5 superiorly and inferiorly, and superiorly at the S1 level. The paraspinal soft tissues appear normal. There are mild degenerative changes of the SI joints. CONUS MEDULLARIS AND CAUDA EQUINA: Normal, terminating at the level of L1. No lower cord signal abnormality is seen. The cauda equina nerve roots are normal. SPINAL LEVELS: L1-L2: Moderate loss of disc height with a diffuse disc bulge and small central protrusion. No central canal stenosis or foraminal narrowing. L2-L3: Mild loss of disc height with a broad-based right subarticular to right foraminal disc protrusion resulting in moderate encroachment. Diffuse disc bulge and mild central canal stenosis. Moderate left foraminal narrowing. L3-L4: Broad-based disc bulge present with bilateral foraminal disc protrusions distorting the exiting L3 nerve roots, right greater than left side. Additional small central disc protrusion contributing to thecal sac deformity. Severe central canal stenosis and thecal sac compression with a generalized disc bulge and hypertrophic facet arthropathy. L4-L5: Central disc protrusion mildly distorting the ventral thecal sac. Hypertrophic facet arthropathy and disc bulge encroach upon the subarticular zones at the site of the traversing L5 nerve roots. Mild central canal stenosis. Mild to moderate foraminal narrowing, worse on the left side. L5-S1: Focal central disc protrusion with mild mass effect upon the right S1 nerve root. No central canal stenosis. Hypertrophic facet arthropathy present. Right foraminal disc protrusion distorts the right L5 nerve root with [id number] encroachment. Bulging disc also abuts the left L5 nerve root in the foramen. IMPRESSION: Multilevel, multifactorial degenerative changes in the lumbar spine, most severe at L3-L4 where there is severe central canal stenosis and thecal sac compression with bilateral foraminal disc protrusions distorting the exiting L3 nerve roots. Small central disc protrusion as well. 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 The dressings were changed today in the office. The patient will follow up in one week for wound check. Continue abdominal binder. Patient may remove dressing in 48-72 hours and start showering. Activity restrictions and precautions reviewed with patient. 2. Patient has shown accountability for his medication regimen and the pill count was accurate. There is no evidence of misuse, abuse or diversion at this time. MassPat reviewed. I will hold off on refilling his opioid medication for now as patient has been using it infrequently. Patient will call us to let us know when he is down to 5-10 pills, and I will send a refill at that time depending on his usage if needed. Plan to titrate off opioids once SCS implant device will in full program mode. All questions and concerns have been answered and patient agreed with the plan. Follow up in 1 week for wound chekc and pill count in one month and sooner if needed. Coding Level of Care Code Est Pt Level 4 (55580) Diagnoses Chronic painful diabetic neuropathy E11.40 Bilateral foot pain M79.671; M79.672 Opioid use agreement exists Z79.891 Chronic pain syndrome G89.4 Failed back syndrome of lumbar spine M96.1
[2023-05-07 09:39] VITALS: BP 192/84; PULSE 56; O2SAT 98; BMI 43.0
== END 2023-05-07 10:03 | disposition home or self-care (01) ==
PROVIDERS: PCP Nurse Practitioner Family; Visit Provider Nurse Practitioner Family
DX: G89.4 Chronic pain syndrome (principal); E11.40 Type 2 diabetes mellitus with diabetic neuropathy, unspecified; M79.671 Pain in right foot; Z79.891 Long term (current) use of opiate analgesic; M79.672 Pain in left foot; M96.1 Postlaminectomy syndrome, not elsewhere classified
CPT/HCPCS: 99024

== ENCOUNTER → 2023-05-07 09:24 | Outpatient (BNVA) | payer OTHER, SELFPAY | PROVIDERS: PCP Nurse Practitioner Family; Visit Provider Nurse Practitioner Family | DX: Z51.81 Encounter for therapeutic drug level monitoring (principal); M79.671 Pain in right foot; M79.672 Pain in left foot; M96.1 Postlaminectomy syndrome, not elsewhere classified; G89.4 Chronic pain syndrome; E11.40 Type 2 diabetes mellitus with diabetic neuropathy, unspecified; Z79.891 Long term (current) use of opiate analgesic | CPT/HCPCS: 99212 ==

== ENCOUNTER 2023-05-15 09:23 | Outpatient (AMB) | payer OTHER, SELFPAY ==
--- NOTE | 2023-05-15 09:25 | MHC.OFFVIS ---
Intake Vital Signs 05/15/23 09:28 Height 5 ft 9 in Weight 290 lb BMI 42.8 BP 170/80 H Blood Pressure Location Lt brachial Position Sitting Pulse 98 Pulse Source Pulse Oximeter Pulse Oximetry (%) 97 Oxygen Delivery Method Room Air Intake Visit Reasons: S/p NEVRO SCS Implant 05/02/23 Intake Note: Pain today 07/12 Top Frame Maker Required: No Accompanied by: Spouse Allergies NSAIDS (Non-Steroidal Anti-Inflamma Allergy (Severe, Verified 05/15/23 09:29) Anaphylaxis methadone Allergy (Intermediate, Verified 05/15/23 09:29) Vomiting HPI HPI Comments History of Present Illness Details Patient presents today 2 weeks status post lumbar SCS Nevro Implant on 05/02/[address] Mead. Patient is accompanied by his . Kailee Damian fuels sales representative is also present during today's visit. Patient reports ongoing 80% pain relief for his back and hip pain and 50% pain relief for his bilateral foot and lower legs pain since procedure. Patient reports improvement in his daily activities and functioning, mobility, and improved tolerance for prolonged standing and walking, and improved sleep. He continues to experience numbness and tingling sensations in his feet, left worse than right. Denies any recent cough, cold, infection, fever or other significant changes in medical history since last office visit. The wounds were examined today, both are open to air, dry and intact. The wound sites were cleansed with ChloraPrep, dermabond skin glue and Steri-strips are intact. No erythema, swelling, redness, tenderness or pathological discharge was noted. Past Procedures: 05/02/23: Lumbar SCS Implant with Nevro-80% pain relief back/hip, 50% pain relief bilateral feet 02/28/23: Lumbar SCS Trial with Nevro-100% pain relief 12/06/21-12/05/22: Qutenza every 3 months-minimal pain relief [facility] Medical History Polymyalgia rheumatica PAD (peripheral artery disease) Ascending aorta dilatation Sleep apnea Type 2 diabetes mellitus with peripheral neuropathy Diabetes mellitus due to underlying condition with diabetic neuropathy, without long-term current use of insulin Arterial insufficiency Iatrogenic Dennys's disease Morbid obesity Atherosclerotic cardiovascular disease Diabetic neuropathy associated with type 2 diabetes mellitus 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 Seronegative rheumatoid arthritis Obesity (BMI 30-39.9) Vitamin D deficiency Diabetes type 2, controlled Osteopenia Adrenal 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 Painful total knee replacement, right Surgical History History of esophagogastroduodenoscopy (EGD) H/O colonoscopy Hx of coronary angiogram History of back surgery (~2018) History of knee replacement procedure of right knee History of knee replacement procedure of left knee Hx of cardiac cath Family History Father Angina pectoris Mother Stroke Social History Household Members: Spouse Housing: House Are you a primary career development manager to a significant other at home: No Do you presently have visiting nurse or other home services: No 75 years or older and lives alone: No Alcohol intake: current Alcohol intake frequency: does not drink Alcohol type: beer and hard liquor Patient Tobacco Use Status: Former Tobacco user Quit Date: 1998 Years Smoked: 20 years ago e-Cigarette/Vaping Use: Never Used Second Hand Smoke Exposure: No Substance Use Type: Marijuana service: No Current occupational status: retired Cognitive needs: No Hearing needs: No Vision needs: No Review of Systems Const All systems reviewed & are unremarkable except as noted in HPI and below Physical Exam Vital Signs: Last Vital Signs Pulse 98 05/15/23 09:28 BP 170/80 H 05/15/23 09:28 Pulse Ox 97 05/15/23 09:28 Oxygen Delivery Method Room Air 05/15/23 09:28 BMI result Body Mass Index 42.8 General: Appears afebrile. Alert and oriented. Mood and affect appropriate. Follows and participates in conversation appropriately. Respiratory effort is unlabored. No cough. Able to transition from sit to stand unassisted. Ambulates with bilaterally normal heel strike and toe off. All incisions are clean dry and intact.?Steri-Strips are intact. Results Reviewed Results Reviewed: XR LUMBOSACRAL SPINE 05/08/2019 CLINICAL INFORMATION: Lower back pain status-post injury. COMPARISON: MRI lumbar spine dated 02/05/2018 and radiographs dated 03/12/2017. TECHNIQUE: 3 views of the lumbosacral spine were obtained. FINDINGS: Bone mineralization is normal. There is a stable slight anterior wedge compression fracture of the L1 vertebral body. There is a mild disc space narrowing and vacuum disc phenomenon extending from T12-L1 through L5-S1. There is a multilevel mild to moderate lower thoracic and lumbar spondylosis. The posterior elements are intact. There are aortoiliac atherosclerotic calcifications. No foreign body is seen. IMPRESSION: 1. There is a very mild anterior wedge compression fracture of the L1 vertebral body, unchanged from the MRI examination of 02/05/2018. 2. There is multilevel lower thoracic and lumbar degenerative disc disease and spondylosis. MR LUMBAR SPINE WITHOUT CONTRAST 02/05/2018 CLINICAL INFORMATION: Low back pain with bilateral hip soreness. COMPARISON: None TECHNIQUE: MRI of the lumbar spine was obtained using routine sequences without contrast. FINDINGS: VERTEBRAL BODIES AND PARASPINAL STRUCTURES: Marrow signal is mildly heterogeneous. There are no compression fractures or subluxations. Mild to moderate multilevel disc space narrowing noted with degenerative endplate Schmorl's nodes. Mild endplate edematous changes noted at the L1 level superiorly, at L5 superiorly and inferiorly, and superiorly at the S1 level. The paraspinal soft tissues appear normal. There are mild degenerative changes of the SI joints. CONUS MEDULLARIS AND CAUDA EQUINA: Normal, terminating at the level of L1. No lower cord signal abnormality is seen. The cauda equina nerve roots are normal. SPINAL LEVELS: L1-L2: Moderate loss of disc height with a diffuse disc bulge and small central protrusion. No central canal stenosis or foraminal narrowing. L2-L3: Mild loss of disc height with a broad-based right subarticular to right foraminal disc protrusion resulting in moderate encroachment. Diffuse disc bulge and mild central canal stenosis. Moderate left foraminal narrowing. L3-L4: Broad-based disc bulge present with bilateral foraminal disc protrusions distorting the exiting L3 nerve roots, right greater than left side. Additional small central disc protrusion contributing to thecal sac deformity. Severe central canal stenosis and thecal sac compression with a generalized disc bulge and hypertrophic facet arthropathy. L4-L5: Central disc protrusion mildly distorting the ventral thecal sac. Hypertrophic facet arthropathy and disc bulge encroach upon the subarticular zones at the site of the traversing L5 nerve roots. Mild central canal stenosis. Mild to moderate foraminal narrowing, worse on the left side. L5-S1: Focal central disc protrusion with mild mass effect upon the right S1 nerve root. No central canal stenosis. Hypertrophic facet arthropathy present. Right foraminal disc protrusion distorts the right L5 nerve root with [id number] encroachment. Bulging disc also abuts the left L5 nerve root in the foramen. IMPRESSION: Multilevel, multifactorial degenerative changes in the lumbar spine, most severe at L3-L4 where there is severe central canal stenosis and thecal sac compression with bilateral foraminal disc protrusions distorting the exiting L3 nerve roots. Small central disc protrusion as well. Assessment & Plan Assessment & Plan (1) Chronic painful diabetic neuropathy: Code(s): E11.40 - Type 2 diabetes mellitus with diabetic neuropathy, unspecified (2) Bilateral foot pain: Code(s): M79.671 - Pain in right foot; M79.672 - Pain in left foot (3) Chronic pain syndrome: Code(s): G89.4 - Chronic pain syndrome (4) Failed back syndrome of lumbar spine: Code(s): M96.1 - Postlaminectomy syndrome, not elsewhere classified Plan Patient is 2 weeks s/p Nevro SCS Implant with good results for back/hip pain and partial improvement in his bilateral feet neuropathy related pain. Device program adjusted today by Kailee Damian. Continue wearing abdominal binder as needed. Activity restrictions and precautions reviewed with patient. All questions were answered and the patient agreed with the plan. Follow up for pill count/wound check as scheduled and sooner as needed. Coding Level of Care Code Est Pt Level 3 (24122) Diagnoses Chronic painful diabetic neuropathy E11.40 Bilateral foot pain M79.671; M79.672 Chronic pain syndrome G89.4 Failed back syndrome of lumbar spine M96.1
[2023-05-15 09:28] VITALS: BP 170/80; PULSE 98; O2SAT 97; BMI 42.8
== END 2023-05-15 10:11 | disposition home or self-care (01) ==
PROVIDERS: PCP Nurse Practitioner Family; Visit Provider Nurse Practitioner Family
DX: E11.40 Type 2 diabetes mellitus with diabetic neuropathy, unspecified (principal); M79.671 Pain in right foot; M79.672 Pain in left foot; G89.4 Chronic pain syndrome; M96.1 Postlaminectomy syndrome, not elsewhere classified
CPT/HCPCS: 99024

== ENCOUNTER → 2023-05-15 09:23 | Outpatient (BNVA) | payer OTHER, SELFPAY | PROVIDERS: PCP Nurse Practitioner Family; Visit Provider Nurse Practitioner Family | DX: E11.40 Type 2 diabetes mellitus with diabetic neuropathy, unspecified (principal); M79.671 Pain in right foot; M79.672 Pain in left foot; M96.1 Postlaminectomy syndrome, not elsewhere classified | CPT/HCPCS: 99212 ==

== ENCOUNTER 2023-05-22 09:27 | Outpatient (REF) | payer OTHER, SELFPAY ==
[2023-05-22 10:52] LABS: Basophils Percent Auto 1.3 % (0-2); Eosinophils Absolute Auto 0.1 X10*3/uL (0.0-0.4); Hemoglobin 14.5 g/dl (14.0-18.0); Imm Gran Abs Auto 0.01 X10*3/uL (0.00-0.03); Imm Gran Pct Auto 0.4 % (0.0-0.4); Lymphocytes Percent Auto 44.8 % (20-40); MANUAL DIFF FLAG SCAN; Mean Corpuscular HGB Conc 34.5 g/dl (31.0-36.0); Mean Corpuscular Hemoglobin 34.9 pg (27.0-33.0); Mean Corpuscular Volume 101.2 fL (80.0-98.0); Monocytes Absolute Auto 0.3 X10*3/uL (0.1-1.2); Monocytes Percent Auto 12.1 % (2-11); Neutrophils Absolute Auto 0.9 x10*3/uL (2.0-8.3); Neutrophils Percent Auto 38.4 % (45-73); Red Blood Count 4.15 X10*6/uL (4.60-5.80); SCAN SMEAR FLAG 1
[2023-05-22 10:59] LABS: White Blood Count 2.3 X10*3/uL (4.8-10.8)
[2023-05-22 11:08] LABS: Rheumatoid Factor < 13.0 IU/mL (<15.0)
[2023-05-22 11:10] LABS: Alanine Aminotransferase 41 U/L (0-40); Albumin Level 4.1 g/dL (3.5-5.0); Alkaline Phosphatase 45 U/L (39-117); Anion Gap 13 (12-20); Aspartate Amino Transferase 20 U/L (5-37); Blood Urea Nitrogen 17 mg/dL (9-16); C Reactive Protein < 0.10 mg/dL (< or = 0.50); Calcium 9.2 mg/dL (8.4-10.2); Carbon Dioxide 24 mmol/L (22-29); Chloride 106 mmol/L (96-108); Estimated Glomerular Filt Rate > 60; Glucose Random 169 mg/dL (60-115); Potassium 3.8 mmol/L (3.3-5.1); Sodium 139 mmol/L (135-145); Total Protein 6.1 g/dL (6.5-8.0)
[2023-05-22 11:22] LABS: Mean Platelet Volume 11.6 fL (9.4-12.4); Platelet Count 74 X10*3/uL (160-400)
[2023-05-22 11:23] LABS: SLIDE REVIEW VERIFIED
[2023-05-22 11:37] LABS: Erythrocyte Sedimentation Rate 1 MM/HR (0-15)
[2023-05-23 21:38] LABS: Prot Elec - Albumin 4.3 g/dL (3.8-4.8); Prot Elec - Alpha1 0.2 g/dL (0.2-0.3); Prot Elec - Alpha2 0.4 g/dL (0.5-0.9); Prot Elec - Beta 1 0.4 g/dL (0.4-0.6); Prot Elec - Beta 2 0.3 g/dL (0.2-0.5); Prot Elec - Gamma 0.5 g/dL (0.8-1.7); Prot Elec - Total Protein 6.1 g/dL (6.1-8.1)
[2023-05-24 09:49] LABS: IgA 173 mg/dL (70-320); IgG 534 mg/dL (600-1540); IgM 77 mg/dL (50-300)
[2023-05-24 14:04] LABS: Cyclic Citrullinated Peptide <16 UNITS
[2023-05-24 15:18] LABS: Anti Nuclear Antibody Screen NEGATIVE (NEGATIVE)
== END 2023-05-22 09:28 | disposition home or self-care (01) ==
LOC: HO.10HDL 09:27
PROVIDERS: Visit Provider Student in an Organized Health Care Education/Training Program
DX: M06.9 Rheumatoid arthritis, unspecified (principal)
CPT/HCPCS: 36415; 80053; 82784; 84165; 85025; 85652; 86038; 86140; 86200; 86334; 86431

== ENCOUNTER 2023-05-24 10:50 | Outpatient (AMB) | payer OTHER, SELFPAY ==
--- NOTE | 2023-05-24 10:55 | MHC.PC.OV ---
Vital Signs 05/24/23 10:56 05/24/23 11:41 Height 5 ft 9 in Weight 296 lb BMI 43.7 BP 152/86 H 150/82 H Blood Pressure Location Lt brachial Lt brachial Position Sitting Sitting Pulse 80 Pulse Source Pulse Oximeter Pulse Oximetry (%) 97 Oxygen Delivery Method Room Air Intake Visit Reasons: Rescheduled PE Intake Note: pt is here for physical exam, DM Coil Tier Required: No Accompanied by: Self / Same As Patient Allergies NSAIDS (Non-Steroidal Anti-Inflamma Allergy (Severe, Verified 05/24/23 10:56) Anaphylaxis methadone Allergy (Intermediate, Verified 05/24/23 10:56) Vomiting Medication List - Last Reconciled 05/24/23 by LOUIS Ordonez- acetaminophen-codeine 300-30 mg 1 tab PO QID PRN 30 days aspirin 81 mg PO DAILY bethanechol chloride 50 mg PO BEDTIME blood sugar diagnostic (FreeStyle Lite Strips) 1 strip miscellaneous DAILY 30 days cholecalciferol (vitamin D3) 50 mcg PO DAILY 90 days CPAP Machine/Device (CPAP) use daily NS [Diabetic shoes with 3 pair of custom orthotics wear daily] diclofenac sodium 1% 4 grams topical QID PRN epinephrine (EpiPen) 0.3 mg (0.3 mL) IM Q10M PRN folic acid 1 mg PO DAILY ketoconazole 2% 1 appl topical 2XW Kevzara (sarilumab) 200 mg (1.14 mL) subcut Q2W NS lancets (FreeStyle Lancets) 1 gauge topical DAILY 90 days metformin ER 500 mg PO BID 90 days methotrexate sodium 15 mg (6 x 2.5 mg) PO QWEEK metoprolol succinate ER 25 mg PO DAILY naloxone 4 mg/actuation (Narcan) 4 mg intranasal Q2M PRN olopatadine 0.1% 1 drp ophthalmic (eye) DAILY oxybutynin chloride ER 10 mg PO DAILY pravastatin 40 mg PO DAILY prednisone 10 mg (2 x 5 mg) PO DAILY ropinirole 0.5 mg PO BEDTIME tamsulosin 0.4 mg PO BID 90 days venlafaxine ER 150 mg PO DAILY 90 days Tobacco use date assessed: 05/24/23 Fall risk assessment: No Falls in past year Last assessed Fall Risk: 05/24/23 Dental Screening Dental Screen Date: 05/24/23 Did you have a dental visit in the last 12 months?: Yes Did you have a dental problem in the last 6 months where you did not have access to dental care?: No Was dental information given to patient?: Patient has dentist HPI Rescheduled PE HPI Details Pt is here for a PE. Will order labs. Due for colon screen, will refer to GI. Due for PSA is the near future, will order. Denies dribbling with urination, weak stream, and frequent nocturia. Pt is a diabetic, on a statin. A1C in office today is 6.3. Due for microlbumin in the near future, will order. Denies polyuria and polydipsia, does report neuropathy. Pt denies any signs and symptoms of hypoglycemia and does know how to correct it. Will start ozempic 0.25mg for weight loss and diabetes. Pt is following up with rheumatology, urology, cardiology, and pain management. HTN: Blood pressure is managed with metoprolol 25mg. Pt reports that his blood pressure at home is in the upper 130s/70s. Will increase metoprolol from 25mg to 50mg. Pt has a script for orthotics/diabetic shoes, which I HIGHLY recommend he gets (diabetes). [facility] Medical History Polymyalgia rheumatica PAD (peripheral artery disease) Ascending aorta dilatation Sleep apnea Type 2 diabetes mellitus with peripheral neuropathy Diabetes mellitus due to underlying condition with diabetic neuropathy, without long-term current use of insulin Arterial insufficiency Iatrogenic [place]'s disease Morbid obesity Atherosclerotic cardiovascular disease Diabetic neuropathy associated with type 2 diabetes mellitus long-term methotrexate user Seronegative rheumatoid arthritis Obesity (BMI 30-39.9) Vitamin D deficiency Diabetes type 2, controlled Osteopenia Adrenal 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 Painful total knee replacement, right Surgical History History of esophagogastroduodenoscopy (EGD) H/O colonoscopy Hx of coronary angiogram History of back surgery (~2018) History of knee replacement procedure of right knee History of knee replacement procedure of left knee Hx of cardiac cath Family History Father Angina pectoris Mother Stroke Social History (Reviewed 05/24/23 @ 12:[address] [facility] Household Members: Spouse Housing: House Are you a primary career development counselor to a significant other at home: No Do you presently have visiting nurse or other home services: No 75 years or older and lives alone: No Alcohol intake: current Alcohol intake frequency: does not drink Alcohol type: beer and hard liquor Patient Tobacco Use Status: Former Tobacco user Quit Date: 1998 Years Smoked: 20 years ago e-Cigarette/Vaping Use: Never Used Second Hand Smoke Exposure: No Substance Use Type: Marijuana service: No Current occupational status: retired Cognitive needs: No Hearing needs: No Vision needs: No Questionnaire PHQ-9 Over the last 2 weeks, how often have you been bothered by any of the following problems? 1. Little interest or pleasure in doing things: not at all 2. Feeling down, depressed, or hopeless: not at all 3. Trouble falling or staying asleep, or sleeping too much: not at all 4. Feeling tired or having little energy: several days 5. Poor appetite or overeating: not at all 6. Feeling bad about yourself - or that you are a failure or have let yourself or your family down: not at all 7. Trouble concentrating on things, such as reading the newspaper or watching television: not at all 8. Moving or speaking so slowly that other people could have noticed. Or the opposite - being so fidgety or restless that you have been moving around a lot more than usual: not at all 9. Thoughts that you would be better off or of hurting yourself in some way: not at all Total score: 1 Depression Screening Interpretation: Negative Depression Screening Done: Yes 70289 - PHQ-9 Billing: Yes Source: Developed by Drs. Sourav Perez, Cyndi Kim, Tino Alvares and colleagues, with an educational melissa from [employer]. Thrive Questionnaire Date Thrive assessed: 05/24/23 I am a: Patient What is your living situation today?: I have a steady place to live Within the past 12 months, did the food you bought not last and you didn't have the money to get more?: Never true Within the past 12 months, did you worry whether your food would run out before you got money to buy more?: Never true Do you have trouble paying for medicines?: No Do you have trouble getting transportation to medical appointments?: No Do you have trouble paying your heating and electricity bill?: No Do you have trouble taking care of your child, family member or friend?: No Do you have trouble with day-to-day activities such as bathing, preparing meals, shopping, managing finances, etc.?: No Are you currently unemployed and looking for a job?: No Are you interested in more education?: No Please select the resources that you would like help with: None Currently or been in a relationship where the following occur: no concerns reported THRIVE Score: 0 AUDIT C Alcohol Use Questionnaire (AUDIT-C) 1. How often do you have a drink containing alcohol?: 2-3 times a week 2. How many drinks containing alcohol do you have on a typical day when you are drinking?: 5 or 6 3. How often do you have six or more drinks on one occasion?: Weekly Total Score: 8 Score Reviewed/Action Taken: Yes AGUSTINA-7 AMB Questionnaire AGUSTINA-7 Date AGUSTINA - 7 assessed: 05/24/23 Feeling nervous, anxious, or on edge: 0 = Not at all Not being able to stop or control worryin = Not at all Worrying too much about different things: 0 = Not at all Trouble relaxin = Not at all Being so restless that it is hard to sit still: 0 = Not at all Becoming easily annoyed or irritable: 0 = Not at all Feeling afraid as if something awful might happen: 0 = Not at all Total AGUSTINA-7 score (0-4 normal; 5-9 mild; 10-14 moderate; 15-21 severe): 0 Source: Developed by Drs. Sourav Perez, Cyndi Kim, Tino Alvares and colleagues, with an educational melissa from [employer]. AGUSTINA-7 Assessment Billing AGUSTINA-7 Assessment Tool: AGUSTINA-7 Assessment 32709 Review of Systems Const Denies chills and Denies fever(s) Eyes Denies blurry vision ENT Denies vertigo, Denies dizziness and Denies sore throat Card Denies chest pain at rest, Denies chest pain with activity, Denies diaphoresis, Denies dyspnea and Denies dyspnea on exertion Resp Denies cough, Denies dyspnea, Denies dyspnea on exertion and Denies wheezing GI Denies abdominal pain, Denies melena, Denies hematochezia, Denies constipation, Denies diarrhea and Denies loose stools Denies hematuria Musc Denies numbness and Denies tingling Skin/Breast Denies lesions Neuro Denies vertigo, Denies dizziness, Denies numbness and Denies tingling Psych Denies anxiety, Denies depression, Denies homicidal ideation, Denies suicidal ideation and Denies other (substance abuse) Aller/Immun Denies wheezing Physical exam (Primary Care) Vital Signs: Last Vital Signs Pulse 80 05/24/23 10:56 BP 152/86 H 05/24/23 10:56 Pulse Ox 97 05/24/23 10:56 Oxygen Delivery Method Room Air 05/24/23 10:56 BMI result Body Mass Index 43.7 Tobacco/Smoking Status: Tobacco use Status Tobacco use date assessed 05/24/23 05/24/23 11:06 Patient Tobacco Use Status Former Tobacco user 05/24/23 11:06 e-Cigarette/Vaping Use Never Used 05/24/23 11:06 PHQ-9: PHQ-9 Score PHQ-9: Total score 1 05/24/23 11:12 Depression Screening Interpretation: Negative Thrive Assessment: Date of Thrive Assessment Date Thrive assessed 05/24/23 05/24/23 11:06 Currently or been in a relationship where the following occur: no concerns reported Const General: cooperative Nutritional Appearance: obese morbidly obese Orientation/consciousness: patient oriented x3 HENMT Head: Yes normal to inspection, Yes normocephalic and Yes atraumatic Ears: TM's normal bilaterally Eyes General: appearance normal, both eyes and all related structures Alignment and Position: alignment normal and position normal Neck Neck: Yes normal visual inspection and Yes no lymphadenopathy Thyroid: Thyroid normal Resp Effort & Inspection: normal respiratory effort Auscultation: clear to auscultation bilaterally Cardio Rate: regular rate Rhythm: regular rhythm Heart sounds: S1 normal heart sound present, S2 normal heart sound present and Murmur heart sound present (faint systolic) GI Palpation (GI): Soft to palpation and nontender Auscultation: normal bowel sounds Male General Exam: Yes normal external exam Penis: normal penis Skin Rashes: no rashes Neuro General: patient oriented x3, moves all extremities, no focal motor deficits and deep tendon reflexes 2+ bilaterally Romberg Test: Negative Extrem Other: right foot + sensation with use of monofilament, left foot no sensation, feet intact Psych Appearance: grossly normal Mental Status: mental status grossly normal Speech and movement: Normal speech and movement present Affect: normal affect Attitude: cooperative Thought process: Normal thought process present Thought content: Normal thought content present Insight: Good insight present (Psych) Judgement: Good judgement present (Psych) Results AMB Hemoglobin A1c AMB Hemoglobin A1c 6.3 % Last Edit by Lalo Bray CMA on 05/24/23 11:18 Results Reviewed Results Reviewed: Laboratory Last Values Hgb A1c (Clinic) 6.3 % (4.0-6.0) H 05/24/23 11:18 Assessment and Plan Assessment & Plan (1) Type 2 diabetes mellitus with peripheral neuropathy: Code(s): E11.42 - Type 2 diabetes mellitus with diabetic polyneuropathy Plan: Labs ordered, starting ozempic (2) Physical exam: Code(s): Z00.00 - Encounter for general adult medical examination without abnormal findings Plan: Labs ordered (3) Screening PSA (prostate specific antigen): Code(s): Z12.5 - Encounter for screening for malignant neoplasm of prostate Plan: PSA ordered (4) Screening for colon cancer: Code(s): Z12.11 - Encounter for screening for malignant neoplasm of colon Plan: Referred to GI (5) HTN (hypertension): Code(s): I10 - Essential (primary) hypertension Plan: increased metoprolol from 25mg to 50mg Plan The patient agreed to the use of a medical records secretary for this encounter. Scribed for HARINI Arreola by Allyson Matute medical records secretary, on 05/24/2023 at 11:15 EST. Orders: Orders Complete Blood Count Auto Diff Today E11.42 - Type 2 diabetes mellitus with diabetic polyneuropathy, Z00.00 - Encounter for general adult medical examination without abnormal findings UA CC w/rflx Micro + Cult Today E11.42 - Type 2 diabetes mellitus with diabetic polyneuropathy, Z00.00 - Encounter for general adult medical examination without abnormal findings Lipid Panel Today E11.42 - Type 2 diabetes mellitus with diabetic polyneuropathy, Z00.00 - Encounter for general adult medical examination without abnormal findings Microalbumin, Random (w Creat) Today E11.42 - Type 2 diabetes mellitus with diabetic polyneuropathy, Z00.00 - Encounter for general adult medical examination without abnormal findings AMB Hemoglobin A1c Today Z13.9 - Encounter for screening, unspecified Comprehensive [place]. Panel Fast Today E11.42 - Type 2 diabetes mellitus with diabetic polyneuropathy, Z00.00 - Encounter for general adult medical examination without abnormal findings TSH reflex Free T4 Today E11.42 - Type 2 diabetes mellitus with diabetic polyneuropathy, Z00.00 - Encounter for general adult medical examination without abnormal findings Prostate Specific Antigen Scr Today Z12.5 - Encounter for screening for malignant neoplasm of prostate Referrals Gastroenterology Referral Z12.11 - Encounter for screening for malignant neoplasm of colon Medications: New semaglutide (Ozempic) for 4 weeks 0.25 mg (0.368 mL) subcut QWEEK 3 mL 0RF Changed From metoprolol succinate ER 25 mg PO DAILY 90 tabs 1RF To metoprolol succinate ER 50 mg PO DAILY 90 tabs 1RF From [Diabetic shoes with 3 pair of custom orthotics] As directed 1 ea 0RF E08.40 - Diabetes mellitus due to underlying condition with diabetic neuropathy, unspecified To [Diabetic shoes with 3 pair of custom orthotics] wear daily 1 ea 0RF E08.40 - Diabetes mellitus due to underlying condition with diabetic neuropathy, unspecified Coding Level of Care Code Est Pt Prev Care >65y(12743) Diagnoses Type 2 diabetes mellitus with peripheral neuropathy E11.42 Physical exam Z00.00 Screening PSA (prostate specific antigen) Z12.5 Screening for colon cancer Z12.11 HTN (hypertension) I10 Additional Codes AGUSTINA-7 Assessment Billing - AGUSTINA-7 Assessment Tool: AGUSTINA-7 Assessment [id number] ([id number])
[2023-05-24 10:56] VITALS: BP 152/86; PULSE 80; O2SAT 97; BMI 43.7
[2023-05-24 11:41] VITALS: BP 150/82
== END 2023-05-24 12:01 | disposition home or self-care (01) ==
PROVIDERS: PCP Nurse Practitioner Family; Visit Provider Nurse Practitioner Family
DX: E11.42 Type 2 diabetes mellitus with diabetic polyneuropathy (principal); Z00.00 Encounter for general adult medical examination without abnormal findings; Z12.5 Encounter for screening for malignant neoplasm of prostate; Z12.11 Encounter for screening for malignant neoplasm of colon; I10 Essential (primary) hypertension; Z13.9 Encounter for screening, unspecified
CPT/HCPCS: 83036; 99397

== ENCOUNTER 2023-05-28 12:52 | Outpatient (AMB) | payer OTHER, SELFPAY ==
--- NOTE | 2023-05-28 12:53 | MHC.OFFVIS ---
Intake Vital Signs 05/28/23 12:54 Height 5 ft 9 in Weight 293 lb 10.491 oz BMI 43.4 BP 128/72 Blood Pressure Location Lt radial Position Sitting Pulse 85 Pulse Source Pulse Oximeter Temp 97.1 F Temp Source Skin Pulse Oximetry (%) 98 Oxygen Delivery Method Room Air Intake Visit Reasons: PMR Intake Note: Patient last seen 03/28/23 presents today for follow up and test results. Accompanied by: Self / Same As Patient Allergies NSAIDS (Non-Steroidal Anti-Inflamma Allergy (Severe, Verified 05/28/23 12:53) Anaphylaxis methadone Allergy (Intermediate, Verified 05/28/23 12:53) Vomiting Medication List - Last Reconciled 05/28/23 by Jamir Sandhu MD acetaminophen-codeine 300-30 mg 1 tab PO QID PRN 30 days aspirin 81 mg PO DAILY bethanechol chloride 50 mg PO BEDTIME blood sugar diagnostic (FreeStyle Lite Strips) 1 strip miscellaneous DAILY 30 days cholecalciferol (vitamin D3) 50 mcg PO DAILY 90 days CPAP Machine/Device (CPAP) use daily NS [Diabetic shoes with 3 pair of custom orthotics wear daily] diclofenac sodium 1% 4 grams topical QID PRN epinephrine (EpiPen) 0.3 mg (0.3 mL) IM Q10M PRN folic acid 1 mg PO DAILY ketoconazole 2% 1 appl topical 2XW Kevzara (sarilumab) 200 mg (1.14 mL) subcut Q2W NS lancets (FreeStyle Lancets) 1 gauge topical DAILY 90 days metformin ER 500 mg PO BID 90 days methotrexate sodium 15 mg (6 x 2.5 mg) PO QWEEK metoprolol succinate ER 50 mg PO DAILY naloxone 4 mg/actuation (Narcan) 4 mg intranasal Q2M PRN olopatadine 0.1% 1 drp ophthalmic (eye) DAILY oxybutynin chloride ER 10 mg PO DAILY pravastatin 40 mg PO DAILY prednisone 10 mg (2 x 5 mg) PO DAILY ropinirole 0.5 mg PO BEDTIME semaglutide (Ozempic) 0.25 mg (0.368 mL) subcut QWEEK tamsulosin 0.4 mg PO BID 90 days venlafaxine ER 150 mg PO DAILY 90 days HPI HPI Comments History of Present Illness Details 68-year-old male with PMR returns to clinic with his for evaluation of PMR. He is currently on Kevzara every other week, methotrexate 15 mg weekly and prednisone 10 mg daily. He is s/p lumbar spinal called stimulator placement last month with good results. States that it has helped his back pain, has also helped his feet but not as much as his back. Has no complaints today Most recent history by Dr. Bustillo 02/2023: The patient returns with his for evaluation of his PMR. He remains on prednisone at 10 mg once a day, methotrexate 20 mg weekly, folic acid 1 mg daily. We had him hold the Kevzara that he was taking 200 mg every 2 weeks because of a low white count. He has not noticed any change in symptoms but I do not think he has missed a dose of the Kevzara yet. We did repeat the blood work and the white count came back to normal. He reports the joints are doing well with current regimen of though he admits that most of the improvement is from the prednisone. He has plans for a nerve stimulator to be implanted in his back for his neuropathic pain in the legs. [facility] Medical History Spinal cord stimulator status Polymyalgia rheumatica PAD (peripheral artery disease) Ascending aorta dilatation Sleep apnea Type 2 diabetes mellitus with peripheral neuropathy Diabetes mellitus due to underlying condition with diabetic neuropathy, without long-term current use of insulin Arterial insufficiency Iatrogenic [place]'s disease Morbid obesity Atherosclerotic cardiovascular disease Diabetic neuropathy associated with type 2 diabetes mellitus long-term methotrexate user Seronegative rheumatoid arthritis Obesity (BMI 30-39.9) Vitamin D deficiency Diabetes type 2, controlled Osteopenia Adrenal 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 Painful total knee replacement, right Surgical History History of esophagogastroduodenoscopy (EGD) H/O colonoscopy Hx of coronary angiogram History of back surgery (~2018) History of knee replacement procedure of right knee History of knee replacement procedure of left knee Hx of cardiac cath Family History Father Angina pectoris Mother Stroke Social History Household Members: Spouse Housing: House Are you a primary home health care physician to a significant other at home: No Do you presently have visiting nurse or other home services: No 75 years or older and lives alone: No Alcohol intake: current Alcohol intake frequency: does not drink Alcohol type: beer and hard liquor Patient Tobacco Use Status: Former Tobacco user Quit Date: 1998 Years Smoked: 20 years ago e-Cigarette/Vaping Use: Never Used Second Hand Smoke Exposure: No Substance Use Type: Marijuana service: No Current occupational status: retired Cognitive needs: No Hearing needs: No Vision needs: No Review of Systems Musc Denies arthralgias, Denies joint swelling and Denies stiffness Physical Exam Vital Signs: Last Vital Signs Temp 97.1 F 05/28/23 12:54 Pulse 85 05/28/23 12:54 BP 128/72 05/28/23 12:54 Pulse Ox 98 05/28/23 12:54 Oxygen Delivery Method Room Air 05/28/23 12:54 BMI result Body Mass Index 43.4 Const General: cooperative, healthy appearing and comfortable Nutritional Appearance: obese morbidly obese Orientation/consciousness: patient oriented x3 Limitations: no limitations HEENT Head: Yes normocephalic and Yes atraumatic Mouth: moist mucous membranes Resp Effort & Inspection: normal respiratory effort and able to speak in complete sentences Auscultation: clear to auscultation bilaterally Cardio Rate: regular rate Skin Other: Few areas of old superficial bruising General skin exam: dry skin Neuro General: patient oriented x3 Extrem Other: Osteoarthritic changes of both hands with no active synovitis Normal range of motion of both shoulders Assessment & Plan Assessment & Plan (1) Polymyalgia rheumatica: Comment: Initially diagnosed as RA?onset 2018. prednisone and eventually methotrexate added. 2020 Humira added with ? improvmenet 10/[address] of Humira Code(s): M35.3 - Polymyalgia rheumatica Plan: This is a 68-year-old male with PMR who returns for follow-up. On methotrexate 15 mg weekly, prednisone 10 mg daily and Kevzara every other week. Doing well overall with no active synovitis. Inflammatory markers normal Continue current meds but alternate prednisone 10 mg daily with 9 mg daily for a few weeks then remain on 9 mg daily. 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 His white count could also fluctuate due to Kevzara. Today patient has mild thrombocytopenia. No bruising. Will increase folic acid dose. Will continue to monitor safety labs periodically. Plan I spent 25 minutes reviewing patient's chart, evaluating patient, ordering diagnostic workup, counseling patient and documenting in the chart Orders: Orders Comprehensive Met. Panel 3 Months M06.00 - Rheumatoid arthritis without rheumatoid factor, unspecified site, Z79.899 - Other rn long term care (current) drug therapy C Reactive Protein 3 Months M06.00 - Rheumatoid arthritis without rheumatoid factor, unspecified site, Z79.899 - Other prison (current) drug therapy Complete Blood Count Auto Diff 3 Months M06.00 - Rheumatoid arthritis without rheumatoid factor, unspecified site, Z79.899 - Other prison (current) drug therapy Erythrocyte Sedimentation Rate 3 Months M06.00 - Rheumatoid arthritis without rheumatoid factor, unspecified site, Z79.899 - Other prison (current) drug therapy Medications: New prednisone 4 mg (4 x 1 mg) PO DAILY 360 tabs 0RF Changed From folic acid 1 mg PO DAILY 90 tabs 3RF 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
[2023-05-28 12:54] VITALS: BP 128/72; PULSE 85; TEMP 36.2; O2SAT 98; BMI 43.4
== END 2023-05-28 13:28 | disposition home or self-care (01) ==
PROVIDERS: PCP Nurse Practitioner Family; Visit Provider Student in an Organized Health Care Education/Training Program
DX: M35.3 Polymyalgia rheumatica (principal); Z79.60 Long term (current) use of unspecified immunomodulators and immunosuppressants
CPT/HCPCS: 99214

== ENCOUNTER → 2023-05-28 12:52 | Outpatient (BNVA) | payer OTHER, SELFPAY | PROVIDERS: PCP Nurse Practitioner Family; Visit Provider Student in an Organized Health Care Education/Training Program | DX: M35.3 Polymyalgia rheumatica (principal); Z79.60 Long term (current) use of unspecified immunomodulators and immunosuppressants | CPT/HCPCS: 99212 ==

== ENCOUNTER 2023-06-04 10:10 | Outpatient (AMB) | payer OTHER, SELFPAY ==
--- NOTE | 2023-06-04 10:11 | MHC.OFFVIS ---
Intake Vital Signs 06/04/23 10:20 Height 5 ft 9 in Weight 283 lb BMI 41.8 Pulse 88 Pulse Source Pulse Oximeter Pulse Oximetry (%) 98 Oxygen Delivery Method Room Air Intake Visit Reasons: PILL COUNT/WOUND CHECK Intake Note: Lino comes in today for a pill count to acetaminophen-cod, patient should have 0 tablets and presents with 19 tabs which he last took about a week ago. Pain today 04/14. Wash Test Checker Required: No Accompanied by: Self / Same As Patient Allergies NSAIDS (Non-Steroidal Anti-Inflamma Allergy (Severe, Verified 06/04/23 10:19) Anaphylaxis methadone Allergy (Intermediate, Verified 06/04/23 10:19) Vomiting HPI HPI Comments History of Present Illness Details Patient presents today for wound check status post lumbar SCS Nevro Implant on 05/02/23 and pill count. Patient is accompanied by his . Kailee Zambrano student services representative is also present during today's visit. Patient reports ongoing 100% pain relief for his back and hip pain and 50% pain relief for his bilateral foot and lower legs pain since procedure. Patient reports improvement in his daily activities and functioning, mobility, and improved tolerance for prolonged standing and walking, and improved sleep. He continues to experience numbness and tingling sensations in his feet, left worse than right. SCS rep has discussed built in programs in SCS device with patient and family to increase pain coverage in legs and feet. Denies any recent cough, cold, infection, fever or other significant changes in medical history since last office visit. The wounds were examined today, both are open to air, dry and intact. No erythema, swelling, redness, tenderness or pathological discharge was noted. Patient is supposed to have #0 pills, in his possession has #19 pills. This demonstrates a responsible attitude in regards to the medication regimen. Patient reports he takes medication mainly for bilateral foot pain and plans to titrate down once SCS program is extended to cover his foot pain as he reports excellent results of his back pain with SCS device. Denies any fever, chills, abdominal dyspnea, constipation, nausea, sedation, dizziness, bowel/bladder dysfunction or saddle anesthesia. Past Procedures: 05/02/23: Lumbar SCS Implant with Nevro-100% pain relief back/hip, 50% pain relief bilateral feet 02/28/23: Lumbar SCS Trial with Nevro-100% pain relief 12/06/21-12/05/22: Qutenza every 3 months-minimal pain relief [facility] Medical History Spinal cord stimulator status Polymyalgia rheumatica PAD (peripheral artery disease) Ascending aorta dilatation Sleep apnea Type 2 diabetes mellitus with peripheral neuropathy Diabetes mellitus due to underlying condition with diabetic neuropathy, without long-term current use of insulin Arterial insufficiency Iatrogenic Dennys's disease Morbid obesity Atherosclerotic cardiovascular disease Diabetic neuropathy associated with type 2 diabetes mellitus 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 Seronegative rheumatoid arthritis Obesity (BMI 30-39.9) Vitamin D deficiency Diabetes type 2, controlled Osteopenia Adrenal 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 Painful total knee replacement, right Surgical History History of esophagogastroduodenoscopy (EGD) H/O colonoscopy Hx of coronary angiogram History of back surgery (~2018) History of knee replacement procedure of right knee History of knee replacement procedure of left knee Hx of cardiac cath Family History Father Angina pectoris Mother Stroke Social History Household Members: Spouse Housing: House Are you a primary rn intensive care unit to a significant other at home: No Do you presently have visiting nurse or other home services: No 75 years or older and lives alone: No Alcohol intake: current Alcohol intake frequency: does not drink Alcohol type: beer and hard liquor Patient Tobacco Use Status: Former Tobacco user Quit Date: 1998 Years Smoked: 20 years ago e-Cigarette/Vaping Use: Never Used Second Hand Smoke Exposure: No Substance Use Type: Marijuana service: No Current occupational status: retired Cognitive needs: No Hearing needs: No Vision needs: No Review of Systems Const All systems reviewed & are unremarkable except as noted in HPI and below Physical Exam Vital Signs: Last Vital Signs Pulse 88 06/04/23 10:20 Pulse Ox 98 06/04/23 10:20 Oxygen Delivery Method Room Air 06/04/23 10:20 BMI result Body Mass Index 41.8 General: Appears afebrile. Alert and oriented. Mood and affect appropriate. Follows and participates in conversation appropriately. Respiratory effort is unlabored. No cough. Able to transition from sit to stand unassisted. Ambulates with bilaterally normal heel strike and toe off. All incisions are clean dry and intact, well healing, no tenderness, no redness or erythema. Psych Appearance: grossly normal Mental Status: mental status grossly normal Speech and movement: Normal speech and movement present Affect: normal affect Attitude: cooperative Thought process: Normal thought process present Thought content: Normal thought content present, suicidality (none), no hallucinations and No Depressive thoughts present Insight: Good insight present (Psych) Judgement: Good judgement present (Psych) Results Reviewed Results Reviewed: XR LUMBOSACRAL SPINE 05/08/2019 CLINICAL INFORMATION: Lower back pain status-post injury. COMPARISON: MRI lumbar spine dated 02/05/2018 and radiographs dated 03/12/2017. TECHNIQUE: 3 views of the lumbosacral spine were obtained. FINDINGS: Bone mineralization is normal. There is a stable slight anterior wedge compression fracture of the L1 vertebral body. There is a mild disc space narrowing and vacuum disc phenomenon extending from T12-L1 through L5-S1. There is a multilevel mild to moderate lower thoracic and lumbar spondylosis. The posterior elements are intact. There are aortoiliac atherosclerotic calcifications. No foreign body is seen. IMPRESSION: 1. There is a very mild anterior wedge compression fracture of the L1 vertebral body, unchanged from the MRI examination of 02/05/2018. 2. There is multilevel lower thoracic and lumbar degenerative disc disease and spondylosis. MR LUMBAR SPINE WITHOUT CONTRAST 02/05/2018 CLINICAL INFORMATION: Low back pain with bilateral hip soreness. COMPARISON: None TECHNIQUE: MRI of the lumbar spine was obtained using routine sequences without contrast. FINDINGS: VERTEBRAL BODIES AND PARASPINAL STRUCTURES: Marrow signal is mildly heterogeneous. There are no compression fractures or subluxations. Mild to moderate multilevel disc space narrowing noted with degenerative endplate Schmorl's nodes. Mild endplate edematous changes noted at the L1 level superiorly, at L5 superiorly and inferiorly, and superiorly at the S1 level. The paraspinal soft tissues appear normal. There are mild degenerative changes of the SI joints. CONUS MEDULLARIS AND CAUDA EQUINA: Normal, terminating at the level of L1. No lower cord signal abnormality is seen. The cauda equina nerve roots are normal. SPINAL LEVELS: L1-L2: Moderate loss of disc height with a diffuse disc bulge and small central protrusion. No central canal stenosis or foraminal narrowing. L2-L3: Mild loss of disc height with a broad-based right subarticular to right foraminal disc protrusion resulting in moderate encroachment. Diffuse disc bulge and mild central canal stenosis. Moderate left foraminal narrowing. L3-L4: Broad-based disc bulge present with bilateral foraminal disc protrusions distorting the exiting L3 nerve roots, right greater than left side. Additional small central disc protrusion contributing to thecal sac deformity. Severe central canal stenosis and thecal sac compression with a generalized disc bulge and hypertrophic facet arthropathy. L4-L5: Central disc protrusion mildly distorting the ventral thecal sac. Hypertrophic facet arthropathy and disc bulge encroach upon the subarticular zones at the site of the traversing L5 nerve roots. Mild central canal stenosis. Mild to moderate foraminal narrowing, worse on the left side. L5-S1: Focal central disc protrusion with mild mass effect upon the right S1 nerve root. No central canal stenosis. Hypertrophic facet arthropathy present. Right foraminal disc protrusion distorts the right L5 nerve root with [id number] encroachment. Bulging disc also abuts the left L5 nerve root in the foramen. IMPRESSION: Multilevel, multifactorial degenerative changes in the lumbar spine, most severe at L3-L4 where there is severe central canal stenosis and thecal sac compression with bilateral foraminal disc protrusions distorting the exiting L3 nerve roots. Small central disc protrusion as well. Assessment & Plan Assessment & Plan (1) Chronic painful diabetic neuropathy: Code(s): E11.40 - Type 2 diabetes mellitus with diabetic neuropathy, unspecified (2) Bilateral foot pain: Code(s): M79.671 - Pain in right foot; M79.672 - Pain in left foot (3) Chronic pain syndrome: Code(s): G89.4 - Chronic pain syndrome (4) Failed back syndrome of lumbar spine: Code(s): M96.1 - Postlaminectomy syndrome, not elsewhere classified Plan Patient continues to report improving pain since Nevro SCS Implant with good results for back/hip pain and partial improvement in his bilateral feet neuropathy related pain. Continue wearing abdominal binder as needed. Activity restrictions and precautions reviewed with patient. Denies untoward effects with SCS implant. Patient has shown accountability for his medication regimen and the pill count was accurate. There is no evidence of misuse, abuse or diversion at this time. MassPat reviewed. I will hold off on refilling his opioid medication for now as patient has been using it infrequently, mostly for bilateral foot pain. Patient will call us to let us know when he is down to 5-10 pills, and I will send a refill at that time depending on his usage if needed. Plan to titrate off opioids once SCS device improves coverage for bilateral foot pain. All questions and concerns have been answered and patient agreed with the plan. Follow up in 8 weeks for pill count and sooner as needed. Coding Level of Care Code Est Pt Level 4 (31604) Diagnoses Chronic painful diabetic neuropathy E11.40 Bilateral foot pain M79.671; M79.672 Chronic pain syndrome G89.4 Failed back syndrome of lumbar spine M96.1
[2023-06-04 10:20] VITALS: PULSE 88; O2SAT 98; BMI 41.8
== END 2023-06-04 11:00 | disposition home or self-care (01) ==
PROVIDERS: PCP Nurse Practitioner Family; Visit Provider Nurse Practitioner Family
DX: E11.40 Type 2 diabetes mellitus with diabetic neuropathy, unspecified (principal); M79.671 Pain in right foot; M79.672 Pain in left foot; G89.4 Chronic pain syndrome; M96.1 Postlaminectomy syndrome, not elsewhere classified
CPT/HCPCS: 99214

== ENCOUNTER → 2023-06-04 10:10 | Outpatient (BNVA) | payer OTHER, SELFPAY | PROVIDERS: PCP Nurse Practitioner Family; Visit Provider Nurse Practitioner Family | DX: Z51.81 Encounter for therapeutic drug level monitoring (principal); E11.40 Type 2 diabetes mellitus with diabetic neuropathy, unspecified; M79.671 Pain in right foot; M79.672 Pain in left foot; M96.1 Postlaminectomy syndrome, not elsewhere classified; G89.4 Chronic pain syndrome | CPT/HCPCS: 99212 ==

== ENCOUNTER → 2023-06-14 14:31 | Outpatient (BNVA) | payer OTHER, SELFPAY | PROVIDERS: PCP Nurse Practitioner Family; Visit Provider Physician Assistant ==

== ENCOUNTER 2023-07-27 09:27 | Outpatient (AMB) | payer OTHER, SELFPAY ==
--- NOTE | 2023-07-27 09:31 | A.OFFVIS_ITS ---
Vital Signs 07/27/23 09:46 Height 5 ft 9 in Weight 295 lb BMI 43.6 BP 178/83 H Blood Pressure Location Lt brachial Position Sitting Pulse 57 Pulse Source Pulse Oximeter Pulse Oximetry (%) 99 Oxygen Delivery Method Room Air Intake Visit Reasons: PILL COUNT Intake Note: Lino comes in today for a pill count to acetaminophen-cod, patient should have 0 tablets and presents with 32 tablets. 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 He is supposed to have #0 pills, in his possession has #32 pills. This demonstrates a responsible attitude in regards to the medication regimen. Patient is status post lumbar SCS implant in April and has been in regular contact with Kailee Damian to readjust his programming to obtain a better pain coverage for right hip pain and lower legs, especially with prolonged ambulation. He plans to titrate off opiods once SCS device will be adjusted to a full programming. Denies any fever, chills, abdominal dyspnea, constipation, nausea, sedation, dizziness, bowel/bladder dysfunction or saddle anesthesia. Patient reports he recently started low dose Ozempic and have slow but steady weight loss without significant side effects. PRIOR: Patient presents today for wound check status post lumbar SCS Nevro Implant on 05/02/23 and pill count. Patient is accompanied by his . Kailee Zambrano internet sales representative is also present during today's visit. Patient reports ongoing 100% pain relief for his back and hip pain and 50% pain relief for his bilateral foot and lower legs pain since procedure. Patient reports improvement in his daily activities and functioning, mobility, and improved tolerance for prolonged standing and walking, and improved sleep. He continues to experience numbness and tingling sensations in his feet, left worse than right. SCS rep has discussed built in programs in SCS device with patient and family to increase pain coverage in legs and feet. Denies any recent cough, cold, infection, fever or other significant changes in medical history since last office visit. The wounds were examined today, both are open to air, dry and intact. No erythema, swelling, redness, tenderness or pathological discharge was noted. Patient is supposed to have #0 pills, in his possession has #19 pills. This demonstrates a responsible attitude in regards to the medication regimen. Patient reports he takes medication mainly for bilateral foot pain and plans to titrate down once SCS program is extended to cover his foot pain as he reports excellent results of his back pain with SCS device. Denies any fever, chills, abdominal dyspnea, constipation, nausea, sedation, dizziness, bowel/bladder dysfunction or saddle anesthesia. Past Procedures: 05/02/23: Lumbar SCS Implant with Nevro-100% pain relief back/hip, 50% pain relief bilateral feet 02/28/23: Lumbar SCS Trial with Nevro-100% pain relief 12/06/21-12/05/22: Qutenza every 3 months-minimal pain relief [facility] Medical History Spinal cord stimulator status Polymyalgia rheumatica PAD (peripheral artery disease) Ascending aorta dilatation Sleep apnea Type 2 diabetes mellitus with peripheral neuropathy Diabetes mellitus due to underlying condition with diabetic neuropathy, without long-term current use of insulin Arterial insufficiency Iatrogenic [place]'s disease Morbid obesity Atherosclerotic cardiovascular disease Diabetic neuropathy associated with type 2 diabetes mellitus 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 Seronegative rheumatoid arthritis Obesity (BMI 30-39.9) Vitamin D deficiency Diabetes type 2, controlled Osteopenia Adrenal 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 Painful total knee replacement, right Surgical History History of esophagogastroduodenoscopy (EGD) H/O colonoscopy Hx of coronary angiogram History of back surgery (~2017) History of knee replacement procedure of right knee History of knee replacement procedure of left knee Hx of cardiac cath Family History Father Angina pectoris Mother Stroke Social History Household Members: Spouse Housing: House Are you a primary home health care coordinator to a significant other at home: No Do you presently have visiting nurse or other home services: No 75 years or older and lives alone: No Alcohol intake: current Alcohol intake frequency: does not drink Alcohol type: beer and hard liquor Patient Tobacco Use Status: Former Tobacco user Quit Date: 1998 Years Smoked: 20 years ago e-Cigarette/Vaping Use: Never Used Second Hand Smoke Exposure: No Substance Use Type: Marijuana service: No Current occupational status: retired Cognitive needs: No Hearing needs: No Vision needs: No Review of Systems Const All systems reviewed & are unremarkable except as noted in HPI and below Physical Exam Vital Signs: Last Vital Signs Pulse 57 07/27/23 09:46 BP 178/83 H 07/27/23 09:46 Pulse Ox 99 07/27/23 09:46 Oxygen Delivery Method Room Air 07/27/23 09:46 BMI result Body Mass Index 43.6 General: Appears afebrile. Alert and oriented. Mood and affect appropriate. Follows and participates in conversation appropriately. Respiratory effort is unlabored. No cough. Able to transition from sit to stand unassisted. Ambulates with bilaterally normal heel strike and toe off. Back/Spine/Pelvis Cervical Spine: cervical ROM normal and No Cervical spine tenderness Thoracic/Lumbar Spine: thoracic and lumbar spine normal to inspection, Thora cic/lumbar spine scar(s), Lasegue's sign negative, pain with thoraco-lumbar ROM, paraspinal muscle tenderness, thoraco-lumbar ROM limited, No thoracic spinal tenderness and No lumbar spinal tenderness Psych Appearance: grossly normal Mental Status: mental status grossly normal Speech and movement: Normal speech and movement present Affect: normal affect Attitude: cooperative Thought process: Normal thought process present Thought content: Normal thought content present, suicidality (none), no hallucinations and No Depressive thoughts present Insight: Good insight present (Psych) Judgement: Good judgement present (Psych) Assessment & Plan Assessment & Plan (1) Chronic painful diabetic neuropathy: Code(s): E11.40 - Type 2 diabetes mellitus with diabetic neuropathy, unspecified Category: Medical (2) Bilateral foot pain: Code(s): M79.671 - Pain in right foot; M79.672 - Pain in left foot Category: Medical (3) Chronic pain syndrome: Code(s): G89.4 - Chronic pain syndrome Category: Medical (4) Failed back syndrome of lumbar spine: Code(s): M96.1 - Postlaminectomy syndrome, not elsewhere classified Category: Medical (5) Right hip pain: Code(s): M25.551 - Pain in right hip Category: Medical Plan Patient continues to report improving pain since Nevro SCS Implant with good results for back pain and partial improvement in his legs and bilateral feet neuropathy related pain. He has reached to Kailee Damian to obtain a better coverage for right hip and leg pain and had some program readjustments done in the office and over the phone over the past few months. Denies untoward effects with SCS implant. Patient has shown accountability for his medication regimen and the pill count was accurate. There is no evidence of misuse, abuse or diversion at this time. MassPat reviewed. I will hold off on refilling his opioid medication for now as patient has been using it infrequently, mostly for bilateral foot pain. Patient will call us to let us know when he is down to 5-10 pills, and I will send a refill at that time depending on his usage if needed. Plan to titrate off opioids once SCS device improves coverage for bilateral foot pain. All questions and concerns have been answered and patient agreed with the plan. Follow up in 8 weeks for pill count and sooner as needed. Coding Level of Care Code Est Pt Level 3 (16899) Diagnoses Chronic painful diabetic neuropathy E11.40 Bilateral foot pain M79.671; M79.672 Chronic pain syndrome G89.4 Failed back syndrome of lumbar spine M96.1 Right hip pain M25.551
[2023-07-27 09:46] VITALS: BP 178/83; PULSE 57; O2SAT 99; BMI 43.6
== END 2023-07-27 10:08 | disposition home or self-care (01) ==
PROVIDERS: PCP Nurse Practitioner Family; Visit Provider Nurse Practitioner Family
DX: G89.4 Chronic pain syndrome (principal); E11.40 Type 2 diabetes mellitus with diabetic neuropathy, unspecified; M79.671 Pain in right foot; M79.672 Pain in left foot; M96.1 Postlaminectomy syndrome, not elsewhere classified; M25.551 Pain in right hip
CPT/HCPCS: 99213

== ENCOUNTER → 2023-07-27 09:27 | Outpatient (BNVA) | payer OTHER, SELFPAY | PROVIDERS: PCP Nurse Practitioner Family; Visit Provider Nurse Practitioner Family | DX: Z51.81 Encounter for therapeutic drug level monitoring (principal); F11.20 Opioid dependence, uncomplicated; M79.671 Pain in right foot; M79.672 Pain in left foot; M25.551 Pain in right hip; M96.1 Postlaminectomy syndrome, not elsewhere classified; E11.40 Type 2 diabetes mellitus with diabetic neuropathy, unspecified; G89.4 Chronic pain syndrome | CPT/HCPCS: 99212 ==

== ENCOUNTER 2023-08-16 12:51 | Outpatient (AMB) | payer OTHER, SELFPAY ==
[2023-08-16 12:54] VITALS: BP 118/60; PULSE 75; BMI 42.1
--- NOTE | 2023-08-16 12:54 | A.OFFVIS_ITS ---
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 Accompanied by: Spouse Allergies NSAIDS (Non-Steroidal Anti-Inflamma Allergy (Severe, Verified 06/14/23 14:35) Anaphylaxis methadone Allergy (Intermediate, Verified 06/14/23 14:35) Vomiting Medication List - Last Reconciled 08/16/23 by Ari Orta MD acetaminophen-codeine 300-30 mg 1 tab PO QID PRN 30 days aspirin 81 mg PO DAILY bethanechol chloride 50 mg PO BEDTIME 90 days blood sugar diagnostic (FreeStyle Lite Strips) 1 strip miscellaneous DAILY 30 days cholecalciferol (vitamin D3) 50 mcg PO DAILY 90 days CPAP Machine/Device (CPAP) use daily NS [Diabetic shoes with 3 pair of custom orthotics wear daily] diclofenac sodium 1% 4 grams topical QID PRN epinephrine (EpiPen) 0.3 mg (0.3 mL) IM Q10M PRN folic acid 3 mg (3 x 1 mg) PO DAILY ketoconazole 2% 1 appl topical 2XW Kevzara (sarilumab) 200 mg (1.14 mL) subcut Q2W NS lancets (FreeStyle Lancets) 1 gauge topical DAILY 90 days metformin ER 500 mg PO BID 90 days methotrexate sodium 15 mg (6 x 2.5 mg) PO QWEEK metoprolol succinate ER 50 mg PO DAILY naloxone 4 mg/actuation (Narcan) 4 mg intranasal Q2M PRN olopatadine 0.1% 1 drp ophthalmic (eye) DAILY oxybutynin chloride ER 10 mg PO DAILY 90 days pravastatin 40 mg PO DAILY prednisone 10 mg PO DAILY ropinirole 0.5 mg PO BEDTIME semaglutide (Ozempic) 0.25 mg (0.368 mL) subcut QWEEK tamsulosin 0.4 mg PO BID 90 days venlafaxine ER 150 mg PO DAILY 90 days HPI Comments Details: Lino is here for follow-up regarding coronary artery disease. He has morbid obesity, polymyalgia rheumatica, rheumatoid arthritis on chronic steroids. In the past, he underwent cardiac workup due to shortness of breath. He had nonobstructive disease in the LAD which is being treated medically. Recently, it seems that he has been able to lose some weight. On Ozempic and that may be of some help. Otherwise, no clear-cut cardiac complaints. 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 Seronegative rheumatoid arthritis Obesity (BMI 30-39.9) Vitamin D deficiency Diabetes type 2, controlled Osteopenia Adrenal 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 Painful total knee replacement, right Surgical History History of esophagogastroduodenoscopy (EGD) H/O colonoscopy Hx of coronary angiogram History of back surgery (~2018) History of knee replacement procedure of right knee History of knee replacement procedure of left knee Hx of cardiac cath Family History Father Angina pectoris Mother Stroke Social History Household Members: Spouse Housing: House Are you a primary caregiver services home to a significant other at home: No Do you presently have visiting nurse or other home services: No 75 years or older and lives alone: No Alcohol intake: current Alcohol intake frequency: does not drink Alcohol type: beer and hard liquor Patient Tobacco Use Status: Former Tobacco user Years Smoked: 20 years ago e-Cigarette/Vaping Use: Never Used Second Hand Smoke Exposure: No Substance Use Type: Marijuana service: No Current occupational status: retired Cognitive needs: No Hearing needs: No Vision needs: No Review of Systems Const Denies chills, Denies fatigue, Denies fever(s), Denies frequent falls, Denies weakness, Denies weight gain and Denies weight loss ENT Denies dizziness Card Denies chest pain, Denies leg edema, Denies lightheadedness, Denies palpitations, Denies dyspnea and Denies dyspnea on exertion Resp Denies cough, Denies dyspnea and Denies dyspnea on exertion GI Denies hematochezia Musc Denies abnormal gait, Denies muscle weakness, Denies numbness, Denies radiating pain into limb and Denies tingling Neuro Denies abnormal gait, Denies dizziness, Denies frequent falls, Denies numbness, Denies tingling and Denies weakness Endo Denies fatigue and Denies palpitations Physical Exam Vital Signs: Last Vital Signs Pulse 75 08/16/23 12:54 BP 118/60 08/16/23 12:54 BMI result Body Mass Index 42.1 Const General: comfortable and no acute distress Orientation/consciousness: patient oriented x3 HEENT Other: Unremarkable Head: Yes normal to inspection Neck Neck: Yes normal visual inspection Chest Chest palpation & inspection: normal inspection of the chest Resp Auscultation: clear to auscultation bilaterally Cardio Palpation: normal PMI Heart sounds: S1 normal heart sound present, S2 normal heart sound present, no gallops, Murmur heart sound present systolic II/ and at the right sternal border and no rubs GI Palpation (GI): Soft to palpation Back/Spine/Pelvis Other: unremarkable Skin General skin exam: no rashes or lesions noted Neuro General: patient oriented x3 Extrem General: Yes normal to inspection Psych Mental Status: mental status grossly normal Assessment & Plan Assessment & Plan (1) Atherosclerotic cardiovascular disease: Comment: follows with [facility] Code(s): I25.10 - Atherosclerotic heart disease of ramona coronary artery without angina pectoris Category: Medical Plan: Cardiac catheterization from 2019 showed 50% stenosis in the mid LAD, but IFR itself was not significant. Minor irregularities in the circumflex and right c oronary arteries and left main was normal. Unremarkable perfusion imaging from 02/2023. Clinically, no overt symptoms. Mainly risk factor modification. Continue statins. He is only on low dose of Pravastatin as he cannot take high dose Atorvastatin. Acceptable lipids. (2) Morbid obesity: Code(s): E66.01 - Morbid (severe) obesity due to excess calories Category: Medical Plan: He has been losing some weight and if he can lose more, that will be of great benefit. He is well aware of that. (3) Atrial arrhythmia: Code(s): I49.8 - Other specified cardiac arrhythmias Category: Medical Plan: Frequent PACs on EKG likely from his obesity as well as MAGDALENA. Increased risk of atrial fibrillation in the future. (4) Ascending aorta enlargement: Code(s): I77.89 - Other specified disorders of arteries and arterioles Category: Medical Plan: Slight increase in size on echocardiogram. We can recheck before his next appointment. Plan Discussed with significant other. Orders: Orders CA echo transthoracic complete 6 Months I77.89 - Other specified disorders of arteries and arterioles Coding Level of Care Code Est Pt Level 4 (09994) Diagnoses Atherosclerotic cardiovascular disease I25.10 Morbid obesity E66.01 Atrial arrhythmia I49.8 Ascending aorta enlargement I77.89
== END 2023-08-16 13:12 | disposition home or self-care (01) ==
PROVIDERS: PCP Nurse Practitioner Family; Visit Provider Internal Medicine
DX: I25.10 Atherosclerotic heart disease of native coronary artery without angina pectoris (principal); E66.01 Morbid (severe) obesity due to excess calories; I49.8 Other specified cardiac arrhythmias; I77.89 Other specified disorders of arteries and arterioles
CPT/HCPCS: 99214

== ENCOUNTER → 2023-08-16 12:51 | Outpatient (BNVA) | payer OTHER, SELFPAY | PROVIDERS: PCP Nurse Practitioner Family; Visit Provider Internal Medicine | DX: I25.10 Atherosclerotic heart disease of native coronary artery without angina pectoris (principal); I10 Essential (primary) hypertension; I49.8 Other specified cardiac arrhythmias; I77.89 Other specified disorders of arteries and arterioles; M79.7 Fibromyalgia; E66.01 Morbid (severe) obesity due to excess calories; Z68.41 Body mass index [BMI] 40.0-44.9, adult | CPT/HCPCS: 99212 ==

== ENCOUNTER 2023-08-23 10:46 | Outpatient (REF) | payer OTHER, SELFPAY ==
[2023-08-23 13:09] LABS: MANUAL DIFF FLAG NO
[2023-08-23 13:10] LABS: Basophils Percent Auto 0.6 % (0-2); Eosinophils Absolute Auto 0.2 X10*3/uL (0.0-0.4); Eosinophils Percent Auto 5.6 % (0-4); Hematocrit 44.1 % (42.0-52.0); Hemoglobin 15.2 g/dl (14.0-18.0); Imm Gran Abs Auto 0.01 X10*3/uL (0.00-0.03); Imm Gran Pct Auto 0.3 % (0.0-0.4); Lymphocytes Absolute Auto 0.7 X10*3/uL (1.2-4.9); Lymphocytes Percent Auto 19.3 % (20-40); Mean Corpuscular HGB Conc 34.5 g/dl (31.0-36.0); Mean Corpuscular Volume 101.6 fL (80.0-98.0); Mean Platelet Volume 12.6 fL (9.4-12.4); Monocytes Absolute Auto 0.5 X10*3/uL (0.1-1.2); Monocytes Percent Auto 14.3 % (2-11); Neutrophils Absolute Auto 2.1 x10*3/uL (2.0-8.3); Neutrophils Percent Auto 59.9 % (45-73); Red Blood Count 4.34 X10*6/uL (4.60-5.80); Red Cell Distribution Width 13.1 % (11.0-16.0); White Blood Count 3.6 X10*3/uL (4.8-10.8)
[2023-08-23 13:15] LABS: Platelet Count 71 X10*3/uL (160-400)
[2023-08-23 13:37] LABS: Alanine Aminotransferase 34 U/L (0-40); Albumin Level 4.4 g/dL (3.5-5.0); Alkaline Phosphatase 50 U/L (39-117); Anion Gap 15 (12-20); Aspartate Amino Transferase 22 U/L (5-37); Bilirubin Total 0.8 mg/dL (0.0-1.0); Blood Urea Nitrogen 21 mg/dL (9-16); C Reactive Protein < 0.10 mg/dL (< or = 0.50); Calcium 10.4 mg/dL (8.4-10.2); Carbon Dioxide 24 mmol/L (22-29); Chloride 107 mmol/L (96-108); Estimated Glomerular Filt Rate > 60; Glucose Random 132 mg/dL (60-115); Potassium 4.3 mmol/L (3.3-5.1); Sodium 142 mmol/L (135-145); Total Protein 6.6 g/dL (6.5-8.0)
[2023-08-23 13:55] LABS: Erythrocyte Sedimentation Rate 1 MM/HR (0-15)
== END 2023-08-23 10:47 | disposition home or self-care (01) ==
LOC: HO.10HDL 10:46
PROVIDERS: Visit Provider Student in an Organized Health Care Education/Training Program
DX: M06.00 Rheumatoid arthritis without rheumatoid factor, unspecified site (principal); Z79.899 Other long term (current) drug therapy
CPT/HCPCS: 36415; 80053; 85025; 85652; 86140

== ENCOUNTER 2023-08-27 14:06 | Outpatient (AMB) | payer OTHER, SELFPAY ==
[2023-08-27 14:21] VITALS: BP 136/70; PULSE 68; O2SAT 95; BMI 41.7
--- NOTE | 2023-08-27 14:21 | MHC.OFFVIS ---
Vital Signs 08/27/23 14:21 Height 5 ft 9 in Weight 282 lb 3.067 oz BMI 41.7 BP 136/70 Blood Pressure Location Rt brachial Position Sitting Pulse 68 Pulse Source Pulse Oximeter Pulse Oximetry (%) 95 Oxygen Delivery Method Room Air Intake Visit Reasons: PMR/CM Intake Note: Pt seen today for follow up. States Josephzara is not helping much. Grommet Man Required: No Accompanied by: Spouse Allergies NSAIDS (Non-Steroidal Anti-Inflamma Allergy (Severe, Verified 08/27/23 14:23) Anaphylaxis methadone Allergy (Intermediate, Verified 08/27/23 14:23) Vomiting Medication List - Last Reconciled 08/27/23 by Jamir Sandhu MD acetaminophen-codeine 300-30 mg 1 tab PO QID PRN 30 days aspirin 81 mg PO DAILY bethanechol chloride 50 mg PO BEDTIME 90 days blood sugar diagnostic (FreeStyle Lite Strips) 1 strip miscellaneous DAILY 30 days cholecalciferol (vitamin D3) 50 mcg PO DAILY 90 days CPAP Machine/Device (CPAP) use daily NS [Diabetic shoes with 3 pair of custom orthotics wear daily] diclofenac sodium 1% 4 grams topical QID PRN 30 days epinephrine (EpiPen) 0.3 mg (0.3 mL) IM Q10M PRN folic acid 3 mg (3 x 1 mg) PO DAILY ketoconazole 2% 1 appl topical 2XW Kevzara (sarilumab) 200 mg (1.14 mL) subcut Q2W NS lancets (FreeStyle Lancets) 1 gauge topical DAILY 90 days metformin ER 500 mg PO BID 90 days methotrexate sodium 15 mg (6 x 2.5 mg) PO QWEEK metoprolol succinate ER 50 mg PO DAILY naloxone 4 mg/actuation (Narcan) 4 mg intranasal Q2M PRN olopatadine 0.1% 1 drp ophthalmic (eye) DAILY oxybutynin chloride ER 10 mg PO DAILY 90 days pravastatin 40 mg PO DAILY prednisone 10 mg PO DAILY ropinirole 0.5 mg PO BEDTIME semaglutide (Ozempic) 0.25 mg (0.368 mL) subcut QWEEK tamsulosin 0.4 mg PO BID 90 days venlafaxine ER 150 mg PO DAILY 90 days HPI Comments Details: 68-year-old male with PMR returns to clinic with his for evaluation of PMR. He is currently on Kevzara every other week, methotrexate 15 mg weekly and prednisone 10 mg daily. Last visit we attempted to lower his prednisone very slowly, he did well for 2 weeks then he had a tick worsening. We had to increase his prednisone back to 10 mg daily. He was started on Ozempic recently and has lost some weight. He gets tingling and numbness of his feet, usually worse with walking. Improved with sitting down. It's not necessarily worse at night. Most recent history by Dr. Bustillo 02/2023: The patient returns with his for evaluation of his PMR. He remains on prednisone at 10 mg once a day, methotrexate 20 mg weekly, folic acid 1 mg daily. We had him hold the Kevzara that he was taking 200 mg every 2 weeks because of a low white count. He has not noticed any change in symptoms but I do not think he has missed a dose of the Kevzara yet. We did repeat the blood work and the white count came back to normal. He reports the joints are doing well with current regimen of though he admits that most of the improvement is from the prednisone. He has plans for a nerve stimulator to be implanted in his back for his neuropathic pain in the legs. 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 Seronegative rheumatoid arthritis Obesity (BMI 30-39.9) Vitamin D deficiency Diabetes type 2, controlled Osteopenia Adrenal 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 Painful total knee replacement, right Surgical History History of esophagogastroduodenoscopy (EGD) H/O colonoscopy Hx of coronary angiogram History of back surgery (~2018) History of knee replacement procedure of right knee History of knee replacement procedure of left knee Hx of cardiac cath Family History Father Angina pectoris Mother Stroke Social History Household Members: Spouse Housing: House Are you a primary chiropractic care to a significant other at home: No Do you presently have visiting nurse or other home services: No 75 years or older and lives alone: No Alcohol intake: current Alcohol intake frequency: does not drink Alcohol type: beer and hard liquor Patient Tobacco Use Status: Former Tobacco user Years Smoked: 20 years ago e-Cigarette/Vaping Use: Never Used Second Hand Smoke Exposure: No Substance Use Type: Marijuana service: No Current occupational status: retired Cognitive needs: No Hearing needs: No Vision needs: No Review of Systems Musc Denies arthralgias, Denies joint swelling, Reports numbness, Denies stiffness and Reports tingling Neuro Reports numbness and Reports tingling Physical Exam Vital Signs: Last Vital Signs Pulse 68 08/27/23 14:21 BP 136/70 08/27/23 14:21 Pulse Ox 95 08/27/23 14:21 Oxygen Delivery Method Room Air 08/27/23 14:21 BMI result Body Mass Index 41.7 Const General: cooperative, healthy appearing and comfortable Nutritional Appearance: obese morbidly obese Orientation/consciousness: patient oriented x3 Limitations: no limitations HEENT Head: Yes normocephalic and Yes atraumatic Mouth: moist mucous membranes Resp Effort & Inspection: normal respiratory effort and able to speak in complete sentences Auscultation: clear to auscultation bilaterally Cardio Rate: regular rate Skin Other: Few areas of old superficial bruising General skin exam: dry skin Neuro Other: Mildly reduced sensation of his feet bilaterally Intact position since both feet General: patient oriented x3 Extrem Other: Osteoarthritic changes of both hands with no active synovitis Normal range of motion of both shoulders Assessment & Plan Assessment & Plan (1) Polymyalgia rheumatica: Comment: Initially diagnosed as RA?onset 2019. prednisone and eventually methotrexate added. 2020 Humira added with ? improvmenet 10/[address] of Humira Code(s): M35.3 - Polymyalgia rheumatica Category: Medical Plan: This is a 68-year-old male with PMR who returns for follow-up. On methotrexate 15 mg weekly, prednisone 10 mg daily and Kevzara every other week. Doing well overall with no active synovitis. Last visit we attempted to lower his prednisone very slowly, he did reasonably well for 2 weeks then had abrupt worsening with significant fatigue and stiffness Continue Kevzara every other week, prednisone 10 mg daily, reduce methotrexate to 0.5 mg weekly, continue folic acid 3 mg daily Labs before next visit in 4 months (2) Long-term use of immunosuppressant medication: Code(s): Z79.60 - nursing home (current) use of unspecified immunomodulators and immunosuppressants Category: Medical Plan: Will continue to monitor safety labs periodically. (3) Chronic painful diabetic neuropathy: Code(s): E11.40 - Type 2 diabetes mellitus with diabetic neuropathy, unspecified Category: Medical Plan: Patient tried and failed gabapentin, can space in was not helpful. He applies topical Voltaren gel with some relief. He is also on venlafaxine. 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 Will check a bone density scan. 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 Weiner. Plan I spent 45 minutes reviewing patient's chart, evaluating patient, ordering diagnostic workup, counseling patient and documenting in the chart Orders: Orders XR DEXA axial skeleton Today Z79.52 - nursing home (current) use of systemic steroids Complete Blood Count Auto Diff 4 Months M35.3 - Polymyalgia rheumatica, Z79.899 - Other shelter (current) drug therapy Comprehensive Met. Panel 4 Months M35.3 - Polymyalgia rheumatica, Z79.899 - Other shelter (current) drug therapy C Reactive Protein 4 Months M35.3 - Polymyalgia rheumatica, Z79.899 - Other shelter (current) drug therapy Erythrocyte Sedimentation Rate 4 Months M35.3 - Polymyalgia rheumatica, Z79.899 - Other terminal makeup operator (current) drug therapy Medications: New alpha lipoic acid 600 mg PO DAILY 30 caps 3RF G62.9 - Polyneuropathy, unspecified Coding Level of Care Code Est Pt Level 5 (69835) Complex EM visit Add On G2211 Diagnoses Polymyalgia rheumatica M35.3 Long-term use of immunosuppressant medication Z79.60 Chronic painful diabetic neuropathy E11.40 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
== END 2023-08-27 14:44 | disposition home or self-care (01) ==
PROVIDERS: PCP Nurse Practitioner Family; Visit Provider Student in an Organized Health Care Education/Training Program
DX: M35.3 Polymyalgia rheumatica (principal); Z79.60 Long term (current) use of unspecified immunomodulators and immunosuppressants; E11.40 Type 2 diabetes mellitus with diabetic neuropathy, unspecified; Z79.52 Long term (current) use of systemic steroids
CPT/HCPCS: 99215; G2211

== ENCOUNTER → 2023-08-27 14:06 | Outpatient (BNVA) | payer OTHER, SELFPAY | PROVIDERS: PCP Nurse Practitioner Family; Visit Provider Student in an Organized Health Care Education/Training Program | DX: M35.3 Polymyalgia rheumatica (principal); E11.40 Type 2 diabetes mellitus with diabetic neuropathy, unspecified; Z79.52 Long term (current) use of systemic steroids; Z79.631 Long term (current) use of antimetabolite agent | CPT/HCPCS: 99212 ==

== ENCOUNTER 2023-09-05 11:06 | Outpatient (AMB) | payer OTHER, SELFPAY ==
--- NOTE | 2023-09-05 11:54 | MHC.OFFVIS ---
Intake Visit Reasons: 6m/PVR Intake Note: Patient is present for 6M/ PVR Urology Medication:Oxybutynin,tamsulosin,bethanechol Antibiotic Allergy:none Blood Thinner:aspirin Last PVR:0ml's Todays PVR:0ml's Staff Accountant Required: No Allergies NSAIDS (Non-Steroidal Anti-Inflamma Allergy (Severe, Verified 11/12/23 10:07) Anaphylaxis methadone Allergy (Intermediate, Verified 11/12/23 10:07) Vomiting HPI Comments Details: Lino is a pleasant male. He is a patient of Dr. Beck. He seen for the following urologic conditions - lower urinary tract symptoms - detrusor hyperactivity Follow-up from trial of bethanechol PVR 0 Good response to combination oxybutynin tamsulosin and bethanechol Happy with current emptying Background diabetes developed secondary to prednisone for p.m. Lower urinary tract symptoms Good response to urgency with oxybutynin Detrusor hyperactivity with impaired contractility - good stabilization with oxybutynin, and bethanechol Cystoscopy 10/2523 grade 2 trabeculation - incomplete bowel emptying [facility] Medical History Cellulitis Dry gangrene Spinal cord stimulator status Polymyalgia rheumatica PAD (peripheral artery disease) Ascending aorta dilatation Sleep apnea Type 2 diabetes mellitus with peripheral neuropathy Diabetes mellitus due to underlying condition with diabetic neuropathy, without long-term current use of insulin Arterial insufficiency Iatrogenic Dennys's disease Morbid obesity Atherosclerotic cardiovascular disease Diabetic neuropathy associated with type 2 diabetes mellitus 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 Seronegative rheumatoid arthritis Obesity (BMI 30-39.9) Vitamin D deficiency Diabetes type 2, controlled Osteopenia Adrenal 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 Painful total knee replacement, right Surgical History History of esophagogastroduodenoscopy (EGD) H/O colonoscopy Hx of coronary angiogram History of back surgery (~2018) History of knee replacement procedure of right knee History of knee replacement procedure of left knee Hx of cardiac cath Family History Father Angina pectoris Mother Stroke Social History (Updated 11/12/23 @ 11:12 by LOUIS Aden) Household Members: Spouse Housing: House Are you a primary long term care pharmacist to a significant other at home: No Do you presently have visiting nurse or other home services: No 75 years or older and lives alone: No Alcohol intake: former Year quit: 2023 Patient Tobacco Use Status: Former Tobacco user Years Smoked: 20 years ago e-Cigarette/Vaping Use: Never Used Second Hand Smoke Exposure: No Substance Use Type: Marijuana service: No Current occupational status: retired Cognitive needs: No Hearing needs: No Vision needs: No Review of Systems Const Denies chills and Denies fever(s) Card Reports no additional complaints and Denies syncope Resp Denies cough GI Denies abdominal pain and Denies heartburn Reports as per HPI and Denies change in libido Neuro Denies syncope Psych Denies change in libido Endo Denies change in libido Physical Exam Const General: cooperative, healthy appearing, comfortable and no acute distress Orientation/consciousness: patient oriented x3 HEENT Face and sinus: Yes normal facial exam Mouth: moist mucous membranes Neck Neck: Yes normal visual inspection, Yes full ROM and Yes trachea midline Chest Chest palpation & inspection: normal inspection of the chest Resp Effort & Inspection: normal respiratory effort, able to speak in complete sentences and no respiratory distress GI Inspection: Yes normal to inspection Back/Spine/Pelvis Cervical Spine: normal cervical lordosis Thoracic/Lumbar Spine: thoracic and lumbar spine normal to inspection Skin General skin exam: no rashes or lesions noted Neuro General: patient oriented x3, gait normal, tone normal and moves all extremities Extrem General: Yes normal to inspection and Yes capillary refill normal Results AMB Urinalysis, Automated UA Leukoctes 0 Eddie/uL Last Edit by PHILLIP Colvin on 09/05/23 12:09 UA Nitrite Negative Last Edit by PHILLIP Colvin on 09/05/23 12:09 UA Urobilinogen 0.2 mg/dL Last Edit by PHILLIP Colvin on 09/05/23 12:09 UA Protein 30 mg/dL Last Edit by PHILLIP Colvin on 09/05/23 12:09 UA pH 5.5 Last Edit by PHLILIP Colvin on 09/05/23 12:09 UA Blood 0 Jason/uL Last Edit by PHILLIP Colvin on 09/05/23 12:09 UA Specific [place] 1.025 Last Edit by PHILLIP Colvin on 09/05/23 12:09 UA Ketone Positive Last Edit by PHILLIP Colvin on 09/05/23 12:09 UA Bilirubin 1 mg/dL Last Edit by PHILLIP Colvin on 09/05/23 12:09 UA Glucose 0 mg/dL Last Edit by PHILLIP Colvin on 09/05/23 12:09 Results Reviewed Results Reviewed: Laboratory Last Values Urine pH (Auto) 5.5 09/05/23 12:08 Specific [place] (Auto) 1.025 09/05/23 12:08 Urine Protein (Auto) 30 mg/dL 09/05/23 12:08 Glucose (UA)(Auto) 0 mg/dL 09/05/23 12:08 Urine Ketones (Auto) Positive 09/05/23 12:08 Urine Blood (Auto) 0 Jason/uL 09/05/23 12:08 Urine Nitrite (Auto) Negative 09/05/23 12:08 Urine Bilirubin (Auto) 1 mg/dL 09/05/23 12:08 Urine Urobilinogen (Auto) 0.2 mg/dL 09/05/23 12:08 Leukocyte Esterase (Auto) 0 Eddie/uL 09/05/23 12:08 Assessment & Plan Assessment & Plan (1) OAB (overactive bladder): Code(s): N32.81 - Overactive bladder Category: Medical (2) BPH loc w urin obs/LUTS: Code(s): N40.1 - Benign prostatic hyperplasia with lower urinary tract symptoms Category: Medical Plan Six-month follow-up Orders: Orders AMB Urinalysis Automated 09/05/23 Z13.9 - Encounter for screening, unspecified Patient Instructions: Imaging studies, laboratory and physical exam results were discussed and reviewed in detail. No major barriers to patient understanding were identified. An opportunity to ask questions regarding the treatment plan was provided. All questions were answered. The patient expressed understanding and agreement with the above treatment plan. The patient is aware they should contact our office by phone for worsening of their current condition or the appearance of new urologic symptoms. Compliance is encouraged with any medications and followup testing that is ordered. It is a privilege to participate in the urologic care of your patient. If you have any questions or concerns regarding treatment for the above conditions, or other urologic issues, please do not hesitate to contact me. The office telephone contact is [phone]. This note is constructed using voice recognition software. While every effort has been made to ensure accuracy labeling machine operator errors may have been included. Yours sincerely, Dr Bishop Uribe MD, [facility] - Urology Providers of Expert, Compassionate Care for the Genitourinary System Coding Level of Care Code Est Pt Level 3 (66315) Diagnoses OAB (overactive bladder) N32.81 BPH loc w urin obs/LUTS N40.1
== END 2023-09-05 12:17 | disposition home or self-care (01) ==
PROVIDERS: PCP Nurse Practitioner Family; Visit Provider Urology
DX: N32.81 Overactive bladder (principal); N40.1 Benign prostatic hyperplasia with lower urinary tract symptoms
CPT/HCPCS: 99213

== ENCOUNTER → 2023-09-05 11:06 | Outpatient (BNVA) | payer OTHER, SELFPAY | PROVIDERS: PCP Nurse Practitioner Family; Visit Provider Urology | DX: N32.81 Overactive bladder (principal); N40.1 Benign prostatic hyperplasia with lower urinary tract symptoms; N13.8 Other obstructive and reflux uropathy | CPT/HCPCS: 81003; 99212 ==

== ENCOUNTER 2023-09-25 09:46 | Outpatient (AMB) | payer OTHER, SELFPAY ==
--- NOTE | 2023-09-25 09:48 | MHC.OFFVIS ---
Vital Signs 09/25/23 09:58 Height 5 ft 9 in Weight 280 lb BMI 41.3 BP 179/85 H Blood Pressure Location Lt brachial Position Sitting Pulse 71 Pulse Source Pulse Oximeter Pulse Oximetry (%) 100 Oxygen Delivery Method Room Air Intake Visit Reasons: PILL COUNT Intake Note: Lino comes in today for a pill count to acetaminophen-cod #3, patient should have 0 tablets and presents with 5 tablets which he last took yesterday 09/24/23 at 12pm. Pain today 07/12 Cocoa Room Operator Required: No Accompanied by: Spouse Allergies NSAIDS (Non-Steroidal Anti-Inflamma Allergy (Severe, Verified 09/25/23 09:58) Anaphylaxis methadone Allergy (Intermediate, Verified 09/25/23 09:58) Vomiting HPI Comments Details: Patient presents today for a pill count. He is supposed to have #0 pills, in his possession has #5 pills. This demonstrates a responsible attitude in regards to the medication regimen. Patient is status post lumbar SCS implant in April,. [employer] Damian rep is present today to readjust patient's programming to obtain a better pain coverage for right hip pain and lower legs, especially left lower extremity. Patient reports he was recently seen by Vascular provider and was told reoccurence of LLE blockage due to calcification. He has upcoming follow up early next month for potential procedure. At this time, he reports increase left leg pain especially with ambulation. He has been taking opioid medication more regularly due to pain but plans to titrate off opiods once he obtains better pain coverage with SCS device and Vascular procedure. Denies any fever, chills, abdominal dyspnea, constipation, nausea, sedation, dizziness, bowel/bladder dysfunction or saddle anesthesia. PRIOR: Patient presents today for wound check status post lumbar SCS Nevro Implant on 05/02/23 and pill count. Patient is accompanied by his . [employer] Zambrano account representative is also present during today's visit. Patient reports ongoing 100% pain relief for his back and hip pain and 50% pain relief for his bilateral foot and lower legs pain since procedure. Patient reports improvement in his daily activities and functioning, mobility, and improved tolerance for prolonged standing and walking, and improved sleep. He continues to experience numbness and tingling sensations in his feet, left worse than right. SCS rep has discussed built in programs in SCS device with patient and family to increase pain coverage in legs and feet. Denies any recent cough, cold, infection, fever or other significant changes in medical history since last office visit. The wounds were examined today, both are open to air, dry and intact. No erythema, swelling, redness, tenderness or pathological discharge was noted. Patient is supposed to have #0 pills, in his possession has #19 pills. This demonstrates a responsible attitude in regards to the medication regimen. Patient reports he takes medication mainly for bilateral foot pain and plans to titrate down once SCS program is extended to cover his foot pain as he reports excellent results of his back pain with SCS device. Denies any fever, chills, abdominal dyspnea, constipation, nausea, sedation, dizziness, bowel/bladder dysfunction or saddle anesthesia. Past Procedures: 05/02/23: Lumbar SCS Implant with Nevro-100% pain relief back/hip, 50% pain relief bilateral feet 02/28/23: Lumbar SCS Trial with Nevro-100% pain relief 12/06/21-12/05/22: Qutenza every 3 months-minimal pain relief [facility] Medical History Spinal cord stimulator status Polymyalgia rheumatica PAD (peripheral artery disease) Ascending aorta dilatation Sleep apnea Type 2 diabetes mellitus with peripheral neuropathy Diabetes mellitus due to underlying condition with diabetic neuropathy, without long-term current use of insulin Arterial insufficiency Iatrogenic [place]'s disease Morbid obesity Atherosclerotic cardiovascular disease Diabetic neuropathy associated with type 2 diabetes mellitus 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 Seronegative rheumatoid arthritis Obesity (BMI 30-39.9) Vitamin D deficiency Diabetes type 2, controlled Osteopenia Adrenal 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 Painful total knee replacement, right Surgical History History of esophagogastroduodenoscopy (EGD) H/O colonoscopy Hx of coronary angiogram History of back surgery (~2018) History of knee replacement procedure of right knee History of knee replacement procedure of left knee Hx of cardiac cath Family History Father Angina pectoris Mother Stroke Social History Household Members: Spouse Housing: House Are you a primary neonatal intensive care unit nurse to a significant other at home: No Do you presently have visiting nurse or other home services: No 75 years or older and lives alone: No Alcohol intake: current Alcohol intake frequency: does not drink Alcohol type: beer and hard liquor Patient Tobacco Use Status: Former Tobacco user Years Smoked: 20 years ago e-Cigarette/Vaping Use: Never Used Second Hand Smoke Exposure: No Substance Use Type: Marijuana service: No Current occupational status: retired Cognitive needs: No Hearing needs: No Vision needs: No Review of Systems Const All systems reviewed & are unremarkable except as noted in HPI and below Physical Exam Vital Signs: Last Vital Signs Pulse 71 09/25/23 09:58 BP 179/85 H 09/25/23 09:58 Pulse Ox 100 09/25/23 09:58 Oxygen Delivery Method Room Air 09/25/23 09:58 BMI result Body Mass Index 41.3 General: Appears afebrile. Alert and oriented. Mood and affect appropriate. Follows and participates in conversation appropriately. Respiratory effort is unlabored. No cough. Able to transition from sit to stand unassisted. Ambulates with bilaterally normal heel strike and toe off. Back/Spine/Pelvis Cervical Spine: cervical ROM normal and No Cervical spine tenderness Thoracic/Lumbar Spine: thoracic and lumbar spine normal to inspection, Thoracic/lumbar spine scar(s), Lasegue's sign negative, pain with thoraco-lumbar ROM, paraspinal muscle tenderness, thoraco-lumbar ROM limited, No thoracic spinal tenderness and No lumbar spinal tenderness Psych Appearance: grossly normal Mental Status: mental status grossly normal Speech and movement: Normal speech and movement present Affect: normal affect Attitude: cooperative Thought process: Normal thought process present Thought content: Normal thought content present, suicidality (none), no hallucinations and No Depressive thoughts present Insight: Good insight present (Psych) Judgement: Good judgement present (Psych) Results Reviewed Results Reviewed: XR LUMBOSACRAL SPINE 05/08/2019 CLINICAL INFORMATION: Lower back pain status-post injury. COMPARISON: MRI lumbar spine dated 02/05/2018 and radiographs dated 03/12/2017. TECHNIQUE: 3 views of the lumbosacral spine were obtained. FINDINGS: Bone mineralization is normal. There is a stable slight anterior wedge compression fracture of the L1 vertebral body. There is a mild disc space narrowing and vacuum disc phenomenon extending from T12-L1 through L5-S1. There is a multilevel mild to moderate lower thoracic and lumbar spondylosis. The posterior elements are intact. There are aortoiliac atherosclerotic calcifications. No foreign body is seen. IMPRESSION: 1. There is a very mild anterior wedge compression fracture of the L1 vertebral body, unchanged from the MRI examination of 02/05/2018. 2. There is multilevel lower thoracic and lumbar degenerative disc disease and spondylosis. MR LUMBAR SPINE WITHOUT CONTRAST 02/05/2018 CLINICAL INFORMATION: Low back pain with bilateral hip soreness. COMPARISON: None TECHNIQUE: MRI of the lumbar spine was obtained using routine sequences without contrast. FINDINGS: VERTEBRAL BODIES AND PARASPINAL STRUCTURES: Marrow signal is mildly heterogeneous. There are no compression fractures or subluxations. Mild to moderate multilevel disc space narrowing noted with degenerative endplate Schmorl's nodes. Mild endplate edematous changes noted at the L1 level superiorly, at L5 superiorly and inferiorly, and superiorly at the S1 level. The paraspinal soft tissues appear normal. There are mild degenerative changes of the SI joints. CONUS MEDULLARIS AND CAUDA EQUINA: Normal, terminating at the level of L1. No lower cord signal abnormality is seen. The cauda equina nerve roots are normal. SPINAL LEVELS: L1-L2: Moderate loss of disc height with a diffuse disc bulge and small central protrusion. No central canal stenosis or foraminal narrowing. L2-L3: Mild loss of disc height with a broad-based right subarticular to right foraminal disc protrusion resulting in moderate encroachment. Diffuse disc bulge and mild central canal stenosis. Moderate left foraminal narrowing. L3-L4: Broad-based disc bulge present with bilateral foraminal disc protrusions distorting the exiting L3 nerve roots, right greater than left side. Additional small central disc protrusion contributing to thecal sac deformity. Severe central canal stenosis and thecal sac compression with a generalized disc bulge and hypertrophic facet arthropathy. L4-L5: Central disc protrusion mildly distorting the ventral thecal sac. Hypertrophic facet arthropathy and disc bulge encroach upon the subarticular zones at the site of the traversing L5 nerve roots. Mild central canal stenosis. Mild to moderate foraminal narrowing, worse on the left side. L5-S1: Focal central disc protrusion with mild mass effect upon the right S1 nerve root. No central canal stenosis. Hypertrophic facet arthropathy present. Right foraminal disc protrusion distorts the right L5 nerve root with [id number] encroachment. Bulging disc also abuts the left L5 nerve root in the foramen. IMPRESSION: Multilevel, multifactorial degenerative changes in the lumbar spine, most severe at L3-L4 where there is severe central canal stenosis and thecal sac compression with bilateral foraminal disc protrusions distorting the exiting L3 nerve roots. Small central disc protrusion as well. Assessment & Plan Assessment & Plan (1) Chronic painful diabetic neuropathy: Code(s): E11.40 - Type 2 diabetes mellitus with diabetic neuropathy, unspecified Category: Medical (2) Bilateral foot pain: Code(s): M79.671 - Pain in right foot; M79.672 - Pain in left foot Category: Medical (3) Chronic pain syndrome: Code(s): G89.4 - Chronic pain syndrome Category: Medical (4) Failed back syndrome of lumbar spine: Code(s): M96.1 - Postlaminectomy syndrome, not elsewhere classified Category: Medical (5) Right hip pain: Code(s): M25.551 - Pain in right hip Category: Medical Plan [employer] SCS device program has been adjusted today with good results for back pain and partial improvement in his legs and bilateral feet neuropathy related pain. Patient and family has been in regular contact with [employer]ilee Zambrano to obtain a better coverage for right hip and leg pain and had some program readjustments done in the office today as well as over the phone over the past few months. Denies untoward effects with SCS implant. Patient has shown accountability for his medication regimen and the pill count was accurate. There is no evidence of misuse, abuse or diversion at this time. MassPat reviewed. Script sent for Tylenol#3 today and refill for diclofenac topical gel per patient's request. Patient has Narcan at home. All questions and concerns have been answered and patient agreed with the plan. Follow up in 8 weeks for pill count and sooner as needed. Medications: Refilled acetaminophen-codeine 300-30 mg Partial Fill upon patient request. 1 tab PO QID 30 days PRN 90 tabs 0RF pain M35.3 - Polymyalgia rheumatica, M47.26 - Other spondylosis with radiculopathy, lumbar region, M96.1 - Postlaminectomy syndrome, not elsewhere classified diclofenac sodium 1% 4 grams topical QID 30 days PRN 100 grams 4RF for pain M79.671 - Pain in right foot, M79.672 - Pain in left foot Coding Level of Care Code Est Pt Level 4 (96647) Diagnoses Chronic painful diabetic neuropathy E11.40 Bilateral foot pain M79.671; M79.672 Chronic pain syndrome G89.4 Failed back syndrome of lumbar spine M96.1 Right hip pain M25.551
[2023-09-25 09:58] VITALS: BP 179/85; PULSE 71; O2SAT 100; BMI 41.3
== END 2023-09-25 10:28 | disposition home or self-care (01) ==
PROVIDERS: PCP Nurse Practitioner Family; Visit Provider Nurse Practitioner Family
DX: E11.40 Type 2 diabetes mellitus with diabetic neuropathy, unspecified (principal); M79.671 Pain in right foot; M79.672 Pain in left foot; G89.4 Chronic pain syndrome; M96.1 Postlaminectomy syndrome, not elsewhere classified; M25.551 Pain in right hip
CPT/HCPCS: 99214

== ENCOUNTER → 2023-09-25 09:46 | Outpatient (BNVA) | payer OTHER, SELFPAY | PROVIDERS: PCP Nurse Practitioner Family; Visit Provider Nurse Practitioner Family | DX: G89.4 Chronic pain syndrome (principal); E11.40 Type 2 diabetes mellitus with diabetic neuropathy, unspecified; M79.671 Pain in right foot; M79.672 Pain in left foot; M96.1 Postlaminectomy syndrome, not elsewhere classified; M25.551 Pain in right hip | CPT/HCPCS: 99212 ==

== ENCOUNTER 2023-11-12 09:55 | Outpatient (AMB) | payer OTHER, SELFPAY ==
--- NOTE | 2023-11-12 10:00 | A.OFFVIS_ITS ---
Vital Signs 11/12/23 10:07 Height 5 ft 9 in Weight 279 lb BMI 41.2 BP 141/79 H Blood Pressure Location Lt brachial Position Sitting Pulse 66 Pulse Source Pulse Oximeter Pulse Oximetry (%) 97 Oxygen Delivery Method Room Air Intake Visit Reasons: PILL COUNT Intake Note: Lino comes in today for a pill count to acetaminophen-cod #3. Patient should have 0 tablets and presents with 4 tablets which he last took 11/10/23. Pain today 10/12 National Business Director Required: No Accompanied by: Spouse Allergies NSAIDS (Non-Steroidal Anti-Inflamma Allergy (Severe, Verified 11/12/23 10:07) Anaphylaxis methadone Allergy (Intermediate, Verified 11/12/23 10:07) Vomiting HPI Comments Details: Patient presents today for a pill count. He is supposed to have #0 pills, in his possession has #4 pills. This demonstrates a responsible attitude in regards to the medication regimen. Patient reports he recently underwent debridement for gangrenous left great toe with Dr. Cramer and completed Keflex for 20 days. He is scheduled for angiogram at [facility] tomorrow with concerns for potential amputation. Patient has lumbar SCS by [employer] since April this year and will reach out to [employer] team to shut off device prior to procedure tomorrow. Patient denies any fever, chills, abdominal dyspnea, constipation, nausea, sedation, dizziness, bowel/bladder dysfunction or saddle anesthesia. PRIOR: Patient presents today for wound check status post lumbar SCS Nevro Implant on 05/02/23 and pill count. Patient is accompanied by his . [employer] Zambrano outside sales representative is also present during today's visit. Patient reports ongoing 100% pain relief for his back and hip pain and 50% pain relief for his bilateral foot and lower legs pain since procedure. Patient reports improvement in his daily activities and functioning, mobility, and improved tolerance for prolonged standing and walking, and improved sleep. He continues to experience numbness and tingling sensations in his feet, left worse than right. SCS rep has discussed built in programs in SCS device with patient and family to increase pain coverage in legs and feet. Denies any recent cough, cold, infection, fever or other significant changes in medical history since last office visit. The wounds were examined today, both are open to air, dry and intact. No erythema, swelling, redness, tenderness or pathological discharge was noted. Patient is supposed to have #0 pills, in his possession has #19 pills. This demonstrates a responsible attitude in regards to the medication regimen. Patient reports he takes medication mainly for bilateral foot pain and plans to titrate down once SCS program is extended to cover his foot pain as he reports excellent results of his back pain with SCS device. Denies any fever, chills, abdominal dyspnea, constipation, nausea, sedation, dizziness, bowel/bladder dysfunction or saddle anesthesia. Past Procedures: 05/02/23: Lumbar SCS Implant with Nevro-100% pain relief back/hip, 50% pain relief bilateral feet 02/28/23: Lumbar SCS Trial with Nevro-100% pain relief 12/06/21-12/05/22: Qutenza every 3 months-minimal pain relief REPLACED BY [facility] Medical History Cellulitis Dry gangrene Spinal cord stimulator status Polymyalgia rheumatica PAD (peripheral artery disease) Ascending aorta dilatation Sleep apnea Type 2 diabetes mellitus with peripheral neuropathy Diabetes mellitus due to underlying condition with diabetic neuropathy, without long-term current use of insulin Arterial insufficiency Iatrogenic [place]'s disease Morbid obesity Atherosclerotic cardiovascular disease Diabetic neuropathy associated with type 2 diabetes mellitus 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 Seronegative rheumatoid arthritis Obesity (BMI 30-39.9) Vitamin D deficiency Diabetes type 2, controlled Osteopenia Adrenal 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 Painful total knee replacement, right Surgical History History of esophagogastroduodenoscopy (EGD) H/O colonoscopy Hx of coronary angiogram History of back surgery (~2017) History of knee replacement procedure of right knee History of knee replacement procedure of left knee Hx of cardiac cath Family History Father Angina pectoris Mother Stroke Social History (Updated 11/12/23 @ 11:12 by LOUIS Aden) Household Members: Spouse Housing: House Are you a primary care manager to a significant other at home: No Do you presently have visiting nurse or other home services: No 75 years or older and lives alone: No Alcohol intake: former Year quit: 2023 Patient Tobacco Use Status: Former Tobacco user Years Smoked: 20 years ago e-Cigarette/Vaping Use: Never Used Second Hand Smoke Exposure: No Substance Use Type: Marijuana service: No Current occupational status: retired Cognitive needs: No Hearing needs: No Vision needs: No Review of Systems Const All systems reviewed & are unremarkable except as noted in HPI and below Physical Exam Vital Signs: Last Vital Signs Pulse 66 11/12/23 10:07 BP 141/79 H 11/12/23 10:07 Pulse Ox 97 11/12/23 10:07 Oxygen Delivery Method Room Air 11/12/23 10:07 BMI result Body Mass Index 41.2 General: Appears afebrile. Alert and oriented. Mood and affect appropriate. Follows and participates in conversation appropriately. Respiratory effort is unlabored. No cough. Able to transition from sit to stand unassisted. Ambulates with bilaterally normal heel strike and toe off. Back/Spine/Pelvis Cervical Spine: cervical ROM normal and No Cervical spine tenderness Thoracic/Lumbar Spine: thoracic and lumbar spine normal to inspection, Thoracic/lumbar spine scar(s), Lasegue's sign negative, pain with thoraco-lumbar ROM, paraspinal muscle tenderness, thoraco-lumbar ROM limited, No thoracic spinal tenderness and No lumbar spinal tenderness Extrem Other: Left foot in offloading shoe, dressing dry and intact. Reports gangrenous left great toe with throbbing pain. Psych Appearance: grossly normal Mental Status: mental status grossly normal Speech and movement: Normal speech and movement present Affect: normal affect Attitude: cooperative Thought process: Normal thought process present Thought content: Normal thought content present, suicidality (none), no hallucinations and No Depressive thoughts present Insight: Good insight present (Psych) Judgement: Good judgement present (Psych) Results Reviewed Results Reviewed: XR LUMBOSACRAL SPINE 05/08/2019 CLINICAL INFORMATION: Lower back pain status-post injury. COMPARISON: MRI lumbar spine dated 02/05/2018 and radiographs dated 03/12/2017. TECHNIQUE: 3 views of the lumbosacral spine were obtained. FINDINGS: Bone mineralization is normal. There is a stable slight anterior wedge compression fracture of the L1 vertebral body. There is a mild disc space narrowing and vacuum disc phenomenon extending from T12-L1 through L5-S1. There is a multilevel mild to moderate lower thoracic and lumbar spondylosis. The posterior elements are intact. There are aortoiliac atherosclerotic calcifications. No foreign body is seen. IMPRESSION: 1. There is a very mild anterior wedge compression fracture of the L1 vertebral body, unchanged from the MRI examination of 02/05/2018. 2. There is multilevel lower thoracic and lumbar degenerative disc disease and spondylosis. MR LUMBAR SPINE WITHOUT CONTRAST 02/05/2018 CLINICAL INFORMATION: Low back pain with bilateral hip soreness. COMPARISON: None TECHNIQUE: MRI of the lumbar spine was obtained using routine sequences without contrast. FINDINGS: VERTEBRAL BODIES AND PARASPINAL STRUCTURES: Marrow signal is mildly heterogeneous. There are no compression fractures or subluxations. Mild to moderate multilevel disc space narrowing noted with degenerative endplate Schmorl's nodes. Mild endplate edematous changes noted at the L1 level superiorly, at L5 superiorly and inferiorly, and superiorly at the S1 level. The paraspinal soft tissues appear normal. There are mild degenerative changes of the SI joints. CONUS MEDULLARIS AND CAUDA EQUINA: Normal, terminating at the level of L1. No lower cord signal abnormality is seen. The cauda equina nerve roots are normal. SPINAL LEVELS: L1-L2: Moderate loss of disc height with a diffuse disc bulge and small central protrusion. No central canal stenosis or foraminal narrowing. L2-L3: Mild loss of disc height with a broad-based right subarticular to right foraminal disc protrusion resulting in moderate encroachment. Diffuse disc bulge and mild central canal stenosis. Moderate left foraminal narrowing. L3-L4: Broad-based disc bulge present with bilateral foraminal disc protrusions distorting the exiting L3 nerve roots, right greater than left side. Additional small central disc protrusion contributing to thecal sac deformity. Severe central canal stenosis and thecal sac compression with a generalized disc bulge and hypertrophic facet arthropathy. L4-L5: Central disc protrusion mildly distorting the ventral thecal sac. Hypertrophic facet arthropathy and disc bulge encroach upon the subarticular zones at the site of the traversing L5 nerve roots. Mild central canal stenosis. Mild to moderate foraminal narrowing, worse on the left side. L5-S1: Focal central disc protrusion with mild mass effect upon the right S1 nerve root. No central canal stenosis. Hypertrophic facet arthropathy present. Right foraminal disc protrusion distorts the right L5 nerve root with [id number] encroachment. Bulging disc also abuts the left L5 nerve root in the foramen. IMPRESSION: Multilevel, multifactorial degenerative changes in the lumbar spine, most severe at L3-L4 where there is severe central canal stenosis and thecal sac compression with bilateral foraminal disc protrusions distorting the exiting L3 nerve roots. Small central disc protrusion as well. Assessment & Plan Assessment & Plan (1) Chronic painful diabetic neuropathy: Code(s): E11.40 - Type 2 diabetes mellitus with diabetic neuropathy, unspecified Category: Medical (2) Bilateral foot pain: Code(s): M79.671 - Pain in right foot; M79.672 - Pain in left foot Category: Medical (3) Chronic pain syndrome: Code(s): G89.4 - Chronic pain syndrome Category: Medical (4) Failed back syndrome of lumbar spine: Code(s): M96.1 - Postlaminectomy syndrome, not elsewhere classified Category: Medical (5) Right hip pain: Code(s): M25.551 - Pain in right hip Category: Medical Plan Patient has shown accountability for his medication regimen and the pill count was accurate. There is no evidence of misuse, abuse or diversion at this time. [employer]Pat reviewed. Script sent for Tylenol#3 today. Patient has Narcan at home. Patient is scheduled for angiogram at [facility] Endovascular services with concerns for potential left great toe amputation due to gangrenous left great toe. All questions and concerns have been answered and patient agreed with the plan. Follow up in 8 weeks for pill count and sooner as needed. Medications: Refilled acetaminophen-codeine 300-30 mg Partial Fill upon patient request. 1 tab PO QID 30 days PRN 90 tabs 0RF pain M35.3 - Polymyalgia rheumatica, M47.26 - Other spondylosis with radiculopathy, lumbar region, M96.1 - Postlaminectomy syndrome, not elsewhere classified Coding Level of Care Code Est Pt Level 4 (38275) Complex EM visit Add On G2211 Diagnoses Chronic painful diabetic neuropathy E11.40 Bilateral foot pain M79.671; M79.672 Chronic pain syndrome G89.4 Failed back syndrome of lumbar spine M96.1 Right hip pain M25.551
[2023-11-12 10:07] VITALS: BP 141/79; PULSE 66; O2SAT 97; BMI 41.2
== END 2023-11-12 10:40 | disposition home or self-care (01) ==
PROVIDERS: PCP Nurse Practitioner Family; Visit Provider Nurse Practitioner Family
DX: E11.40 Type 2 diabetes mellitus with diabetic neuropathy, unspecified (principal); M79.671 Pain in right foot; M79.672 Pain in left foot; G89.4 Chronic pain syndrome; M96.1 Postlaminectomy syndrome, not elsewhere classified; M25.551 Pain in right hip
CPT/HCPCS: 99214; G2211

== ENCOUNTER → 2023-11-12 09:55 | Outpatient (BNVA) | payer OTHER, SELFPAY | PROVIDERS: PCP Nurse Practitioner Family; Visit Provider Nurse Practitioner Family | DX: Z51.81 Encounter for therapeutic drug level monitoring (principal); F11.20 Opioid dependence, uncomplicated; E11.40 Type 2 diabetes mellitus with diabetic neuropathy, unspecified; M79.671 Pain in right foot; M79.672 Pain in left foot; M96.1 Postlaminectomy syndrome, not elsewhere classified; M25.551 Pain in right hip; G89.4 Chronic pain syndrome | CPT/HCPCS: 99212 ==

== ENCOUNTER 2023-12-06 09:53 | Outpatient (AMB) | payer MEDICARE, SELFPAY ==
--- NOTE | 2023-12-06 10:01 | A.OFFVIS_ITS ---
Vital Signs 12/06/23 10:16 Height 5 ft 9 in BP 161/70 H Blood Pressure Location Lt brachial Position Sitting Pulse 65 Pulse Source Pulse Oximeter Pulse Oximetry (%) 98 Oxygen Delivery Method Room Air Intake Visit Reasons: Pill Count Intake Note: Lino comes in today for a pill count to acetaminophen-cod #3, patient should have 21 tablets and presents with 71 tablets which he last took 12/02/23. Pain today 0/10 First Press Operator Required: No Accompanied by: Spouse Allergies NSAIDS (Non-Steroidal Anti-Inflamma Allergy (Severe, Verified 12/06/23 10:17) Anaphylaxis methadone Allergy (Intermediate, Verified 12/06/23 10:17) Vomiting HPI Comments Details: Patient presents today for a pill count. He is supposed to have #21 pills, in his possession has #71 pills. This demonstrates a responsible attitude in regards to the medication regimen. Patient reports he recently underwent left great toe amputation on 11/21/23 and removed blood clots in his left inner thigh. He was told he also had small blood clot in his left toe as well. He has pending Carotid US study per Vascular provider. Patient reports he had COVID on 10/26/23 and is feeling much better after recent surgery. He reports taking dilaudid and oxycodone for post- operative pain control per [facility] Endovascular services and has not taken Tylenol #3 during that time, thus surplus in pill count today. He continues to use SCS device with good relief. Patient denies any fever, chills, abdominal dyspnea, constipation, nausea, sedation, dizziness, bowel/bladder dysfunction or saddle anesthesia. PRIOR: Patient presents today for wound check status post lumbar SCS Nevro Implant on 05/02/23 and pill count. Patient is accompanied by his . Kailee Zambrano care support representative is also present during today's visit. Patient reports ongoing 100% pain relief for his back and hip pain and 50% pain relief for his bilateral foot and lower legs pain since procedure. Patient reports improvement in his daily activities and functioning, mobility, and improved tolerance for prolonged standing and walking, and improved sleep. He continues to experience numbness and tingling sensations in his feet, left worse than right. SCS rep has discussed built in programs in SCS device with patient and family to increase pain coverage in legs and feet. Denies any recent cough, cold, infection, fever or other significant changes in medical history since last office visit. The wounds were examined today, both are open to air, dry and intact. No erythema, swelling, redness, tenderness or pathological discharge was noted. Patient is supposed to have #0 pills, in his possession has #19 pills. This demonstrates a responsible attitude in regards to the medication regimen. Patient reports he takes medication mainly for bilateral foot pain and plans to titrate down once SCS program is extended to cover his foot pain as he reports excellent results of his back pain with SCS device. Denies any fever, chills, abdominal dyspnea, constipation, nausea, sedation, dizziness, bowel/bladder dysfunction or saddle anesthesia. Past Procedures: 05/02/23: Lumbar SCS Implant with Nevro-100% pain relief back/hip, 50% pain relief bilateral feet 02/28/23: Lumbar SCS Trial with Nevro-100% pain relief 12/06/21-12/05/22: Qutenza every 3 months-minimal pain relief [facility] Medical History Amputation of left great toe Cellulitis Dry gangrene Spinal cord stimulator status Polymyalgia rheumatica PAD (peripheral artery disease) Ascending aorta dilatation Sleep apnea Type 2 diabetes mellitus with peripheral neuropathy Diabetes mellitus due to underlying condition with diabetic neuropathy, without long-term current use of insulin Arterial insufficiency Iatrogenic Dennys's disease Morbid obesity Atherosclerotic cardiovascular disease Diabetic neuropathy associated with type 2 diabetes mellitus 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 Seronegative rheumatoid arthritis Obesity (BMI 30-39.9) Vitamin D deficiency Diabetes type 2, controlled Osteopenia Adrenal 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 Painful total knee replacement, right Surgical History History of endarterectomy History of esophagogastroduodenoscopy (EGD) H/O colonoscopy Hx of coronary angiogram History of back surgery (~2018) History of knee replacement procedure of right knee History of knee replacement procedure of left knee Hx of cardiac cath Family History Father Angina pectoris Mother Stroke Social History Household Members: Spouse Housing: House Are you a primary care partner to a significant other at home: No Do you presently have visiting nurse or other home services: No 75 years or older and lives alone: No Alcohol intake: former Year quit: 2023 Patient Tobacco Use Status: Former Tobacco user Years Smoked: 20 years ago e-Cigarette/Vaping Use: Never Used Second Hand Smoke Exposure: No Substance Use Type: Marijuana service: No Current occupational status: retired Cognitive needs: No Hearing needs: No Vision needs: No Review of Systems Const All systems reviewed & are unremarkable except as noted in HPI and below Physical Exam General: Appears afebrile. Alert and oriented. Mood and affect appropriate. Follows and participates in conversation appropriately. Respiratory effort is unlabored. No cough. Able to transition from sit to stand unassisted. Ambulates with bilaterally normal heel strike and toe off. Back/Spine/Pelvis Cervical Spine: cervical ROM normal and No Cervical spine tenderness Thoracic/Lumbar Spine: thoracic and lumbar spine normal to inspection, Thoracic/lumbar spine scar(s), Lasegue's sign negative, pain with thoraco-lumbar ROM, paraspinal muscle tenderness, thoraco-lumbar ROM limited, No thoracic spinal tenderness and No lumbar spinal tenderness Extrem Other: Left foot in offloading shoe, dressing dry and intact. General: Yes capillary refill normal, Yes no calf tenderness, No clubbing and Yes edema (nonpitting LLE) Psych Appearance: grossly normal Mental Status: mental status grossly normal Speech and movement: Normal speech and movement present Affect: normal affect Attitude: cooperative Thought process: Normal thought process present Thought content: Normal thought content present, suicidality (none), no hallucinations and No Depressive thoughts present Insight: Good insight present (Psych) Judgement: Good judgement present (Psych) Assessment & Plan Assessment & Plan (1) Chronic painful diabetic neuropathy: Code(s): E11.40 - Type 2 diabetes mellitus with diabetic neuropathy, unspecified Category: Medical (2) Bilateral foot pain: Code(s): M79.671 - Pain in right foot; M79.672 - Pain in left foot Category: Medical (3) Chronic pain syndrome: Code(s): G89.4 - Chronic pain syndrome Category: Medical (4) Failed back syndrome of lumbar spine: Code(s): M96.1 - Postlaminectomy syndrome, not elsewhere classified Category: Medical (5) Right hip pain: Code(s): M25.551 - Pain in right hip Category: Medical Plan Patient has shown accountability for his medication regimen and the pill count was accurate. There is no evidence of misuse, abuse or diversion at this time. MassPat reviewed. Will hold off on script refill for Tylenol#3. Patient has Narcan at home. Patient will notify our office when he is down to 5-10 pills. Follow up with [facility] Endovascular services as scheduled. All questions and concerns have been answered and patient agreed with the plan. Follow up in 8 weeks for pill count and sooner as needed. Coding Level of Care Code Est Pt Level 4 (79723) Complex EM visit Add On G2211 Diagnoses Chronic painful diabetic neuropathy E11.40 Bilateral foot pain M79.671; M79.672 Chronic pain syndrome G89.4 Failed back syndrome of lumbar spine M96.1 Right hip pain M25.551
[2023-12-06 10:16] VITALS: BP 161/70; PULSE 65; O2SAT 98
== END 2023-12-06 10:55 | disposition home or self-care (01) ==
PROVIDERS: PCP Nurse Practitioner Family; Visit Provider Nurse Practitioner Family
DX: E11.40 Type 2 diabetes mellitus with diabetic neuropathy, unspecified (principal); M79.671 Pain in right foot; M79.672 Pain in left foot; G89.4 Chronic pain syndrome; M96.1 Postlaminectomy syndrome, not elsewhere classified; M25.551 Pain in right hip
CPT/HCPCS: 99214; G2211

== ENCOUNTER → 2023-12-06 09:53 | Outpatient (BNVA) | payer MEDICARE, SELFPAY | PROVIDERS: PCP Nurse Practitioner Family; Visit Provider Nurse Practitioner Family | DX: M79.671 Pain in right foot (principal); M79.672 Pain in left foot; G89.4 Chronic pain syndrome; M96.1 Postlaminectomy syndrome, not elsewhere classified; M25.551 Pain in right hip; E11.40 Type 2 diabetes mellitus with diabetic neuropathy, unspecified; Z79.891 Long term (current) use of opiate analgesic; Z51.81 Encounter for therapeutic drug level monitoring; Z89.412 Acquired absence of left great toe | CPT/HCPCS: 99212 ==

== ENCOUNTER 2023-12-12 13:40 | Outpatient (AMB) | payer OTHER, SELFPAY ==
[2023-12-12 13:45] VITALS: BP 126/80; PULSE 76; O2SAT 94; BMI 40.6
--- NOTE | 2023-12-12 13:45 | A.OFFPC_ITS ---
Vital Signs 12/12/23 13:45 Height 5 ft 9 in Weight 275 lb BMI 40.6 BP 126/80 Blood Pressure Location Rt brachial Position Sitting Pulse 76 Pulse Source Pulse Oximeter Pulse Oximetry (%) 94 Oxygen Delivery Method Room Air Intake Visit Reasons: Followup HTN Intake Note: pt is here for follow up regarding HTN, a1c done in office today Mallet Cutter Required: No Accompanied by: Self / Same As Patient Allergies NSAIDS (Non-Steroidal Anti-Inflamma Allergy (Severe, Verified 12/12/23 15:03) Anaphylaxis methadone Allergy (Intermediate, Verified 12/12/23 15:03) Vomiting Medication List - Last Reconciled 12/12/23 by Jas Casarez, BOAT JOINER- acetaminophen-codeine 300-30 mg 1 tab PO QID PRN 30 days aspirin 81 mg PO DAILY bethanechol chloride 50 mg PO BEDTIME 90 days blood sugar diagnostic (FreeStyle Lite Strips) 1 strip miscellaneous DAILY 30 days cholecalciferol (vitamin D3) 50 mcg PO DAILY 90 days clopidogrel 75 mg PO DAILY CPAP Machine/Device (CPAP) use daily NS [Diabetic shoes with 3 pair of custom orthotics wear daily] diclofenac sodium 1% 4 grams topical QID PRN 30 days epinephrine (EpiPen) 0.3 mg (0.3 mL) IM Q10M PRN folic acid 3 mg (3 x 1 mg) PO DAILY ketoconazole 2% 1 appl topical 2XW Kevzara (sarilumab) 200 mg (1.14 mL) subcut Q2W NS lancets (FreeStyle Lancets) 1 gauge topical DAILY 90 days metformin ER 500 mg PO ONCE 90 days methotrexate sodium 15 mg (6 x 2.5 mg) PO QWEEK metoprolol succinate ER 50 mg PO DAILY naloxone 4 mg/actuation (Narcan) 4 mg intranasal Q2M PRN olopatadine 0.1% 1 drp ophthalmic (eye) DAILY oxybutynin chloride ER 10 mg PO DAILY 90 days pravastatin 40 mg PO DAILY prednisone 10 mg PO DAILY ropinirole 0.5 mg PO BEDTIME semaglutide (Ozempic) 0.5 mg (0.736 mL) subcut QWEEK tamsulosin 0.4 mg PO BID 90 days venlafaxine ER 150 mg PO DAILY 90 days Tobacco use date assessed: 05/24/23 Fall risk assessment: No Falls in past year Last assessed Fall Risk: 10/09/24 Dental Screening Dental Screen Date: 05/24/23 HPI Followup HTN HPI Details Pt is a diabetic, on a statin. A1C in office today is 5.6. Due for microalbumin. Denies polyuria, polydipsia, does report neuropathy. Pt denies any signs and symptoms of hypoglycemia and does know how to correct it. Will decrease metformin from 500mg bid to 500mg daily. Pt recently underwent a left FEA and great toe amputation. He is following up with vascular for this. He reports that pulses were found via doppler. HTN: Blood pressure is stable currently. Denies chest pain, shortness of breath, headache, and blurred vision. Encouraged pt to have labs drawn. 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 Seronegative rheumatoid arthritis Obesity (BMI 30-39.9) Vitamin D deficiency Diabetes type 2, controlled Osteopenia Adrenal 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 Painful total knee replacement, right Surgical History (Updated 12/12/23 @ 14:22 by HARINI Ordonez) Status post amputation History of endarterectomy History of esophagogastroduodenoscopy (EGD) H/O colonoscopy Hx of coronary angiogram History of back surgery (~2017) History of knee replacement procedure of right knee History of knee replacement procedure of left knee Hx of cardiac cath Family History Father Angina pectoris Mother Stroke Social History Household Members: Spouse Housing: House Are you a primary customer care specialist to a significant other at home: No Do you presently have visiting nurse or other home services: No 75 years or older and lives alone: No Alcohol intake: former Year quit: 2023 Patient Tobacco Use Status: Former Tobacco user Years Smoked: 20 years ago e-Cigarette/Vaping Use: Never Used Second Hand Smoke Exposure: No Substance Use Type: Marijuana service: No Current occupational status: retired Cognitive needs: No Hearing needs: No Vision needs: No Questionnaire PHQ-9 Over the last 2 weeks, how often have you been bothered by any of the following problems? 1. Little interest or pleasure in doing things: not at all 2. Feeling down, depressed, or hopeless: not at all 3. Trouble falling or staying asleep, or sleeping too much: not at all 4. Feeling tired or having little energy: not at all 5. Poor appetite or overeating: not at all 6. Feeling bad about yourself - or that you are a failure or have let yourself or your family down: not at all 7. Trouble concentrating on things, such as reading the newspaper or watching television: not at all 8. Moving or speaking so slowly that other people could have noticed. Or the opposite - being so fidgety or restless that you have been moving around a lot more than usual: not at all 9. Thoughts that you would be better off or of hurting yourself in some way: not at all Total score: 0 Depression Screening Interpretation: Negative Depression Screening Done: Yes [id number] - PHQ-9 Billing: Yes Source: Developed by Drs. Sourav Perez, Cyndi Kim, Tino Alvares and colleagues, with an educational melissa from [employer]. Thrive Questionnaire Date Thrive assessed: 12/12/23 I am a: Patient What is your living situation today?: I have a steady place to live Within the past 12 months, did the food you bought not last and you didn't have the money to get more?: Never true Within the past 12 months, did you worry whether your food would run out before you got money to buy more?: Never true Do you have trouble paying for medicines?: No Do you have trouble getting transportation to medical appointments?: No Do you have trouble paying your heating and electricity bill?: No Do you have trouble taking care of your child, family member or friend?: No Do you have trouble with day-to-day activities such as bathing, preparing meals, shopping, managing finances, etc.?: No Are you interested in more education?: No Please select the resources that you would like help with: None Currently or been in a relationship where the following occur: I choose not to answer THRIVE Score: 0 AUDIT C Alcohol Use Questionnaire (AUDIT-C) 1. How often do you have a drink containing alcohol?: Monthly or less 2. How many drinks containing alcohol do you have on a typical day when you are drinking?: 1 or 2 3. How often do you have six or more drinks on one occasion?: Never Total Score: 1 Score Reviewed/Action Taken: Yes AGUSTINA-7 AMB Questionnaire AGUSTINA-7 Date AGUSTINA - 7 assessed: 12/12/23 Feeling nervous, anxious, or on edge: 0 = Not at all Not being able to stop or control worryin = Not at all Worrying too much about different things: 0 = Not at all Trouble relaxin = Not at all Being so restless that it is hard to sit still: 0 = Not at all Becoming easily annoyed or irritable: 0 = Not at all Feeling afraid as if something awful might happen: 0 = Not at all Total AGUSTINA-7 score (0-4 normal; 5-9 mild; 10-14 moderate; 15-21 severe): 0 Source: Developed by Drs. Sourav Perez, Cyndi Kim, Tino Alvares and colleagues, with an educational melissa from [employer]. AGUSTINA-7 Assessment Billing AGUSTINA-7 Assessment Tool: AGUSTINA-7 Assessment 74938 Review of Systems Const Reports as per HPI Physical exam (Primary Care) Vital Signs: Last Vital Signs Pulse 76 12/12/23 13:45 BP 126/80 12/12/23 13:45 Pulse Ox 94 12/12/23 13:45 Oxygen Delivery Method Room Air 12/12/23 13:45 BMI result Body Mass Index 40.6 Tobacco/Smoking Status: Tobacco use Status Tobacco use date assessed 05/24/23 12/12/23 13:46 Patient Tobacco Use Status Former Tobacco user 12/12/23 13:46 e-Cigarette/Vaping Use Never Used 12/12/23 13:46 PHQ-9: PHQ-9 Score PHQ-9: Total score 0 12/12/23 13:46 Depression Screening Interpretation: Negative Thrive Assessment: Date of Thrive Assessment Date Thrive assessed 12/12/23 12/12/23 13:46 Currently or been in a relationship where the following occur: I choose not to answer Const General: cooperative Nutritional Appearance: obese Orientation/consciousness: patient oriented x3 Resp Other: lungs fairly clear Effort & Inspection: normal respiratory effort Cardio Rate: regular rate Rhythm: regular rhythm Heart sounds: S1 normal heart sound present, S2 normal heart sound present and Murmur heart sound present systolic (faint) Neuro General: patient oriented x3 Extrem Other: left big toe with 3/4 open laceration draining SS fluid, area dressed with gauze, velcro boot on, unable to palpate dorsalis pedis and posterior tibial pulse, no sensation with use of monofilament Psych Appearance: grossly normal Mental Status: mental status grossly normal Speech and movement: Normal speech and movement present Affect: normal affect Attitude: cooperative Thought process: Normal thought process present Thought content: Normal thought content present Insight: Good insight present (Psych) Judgement: Good judgement present (Psych) Results AMB Hemoglobin A1c AMB Hemoglobin A1c 5.6 % Last Edit by Lalo Bray CMA on 12/12/23 14: 04 Coding Level of Care Code Est Pt Level 4 (29367) Diagnoses Type 2 diabetes mellitus with unspecified complications E11.8 Amputation of left great toe S98.112A History of endarterectomy Z98.890 HTN (hypertension) I10 Additional Codes AGUSTINA-7 Assessment Billing - AGUSTINA-7 Assessment Tool: AGUSTINA-7 Assessment [id number] ([id number]) Assessment & Plan Assessment & Plan (1) Type 2 diabetes mellitus with unspecified complications: Code(s): E11.8 - Type 2 diabetes mellitus with unspecified complications Category: Medical Plan: Decreasing metformin from 500mg bid to 500mg daily, stable A1c at 5.6 (2) Amputation of left great toe: Comment: and left metatarsal head 11/2023 Code(s): S98.112A - Complete traumatic amputation of left great toe, initial encounter Category: Medical Plan: Following up with vascular (3) History of endarterectomy: Comment: superficial femoral Code(s): Z98.890 - Other specified postprocedural states Category: Surgical Plan: Following up with vascular, wound looks free from infection, continue to daily dress as instructed by vascular (4) HTN (hypertension): Code(s): I10 - Essential (primary) hypertension Category: Medical Plan: BP is stable currently Plan The patient agreed to the use of a nuclear medicine medical director for this encounter. Scribed for HARINI Arreola by joey Junior scribe, on 12/12/2023 at 14:00 EST. Orders: Orders AMB Hemoglobin A1c Today Z13.9 - Encounter for screening, unspecified Medications: Changed From metformin ER 500 mg PO BID 90 days 180 tabs 1RF E11.9 - Type 2 diabetes mellitus without complications To metformin ER 500 mg PO ONCE 90 days 90 tabs 1RF E11.9 - Type 2 diabetes jose a litus without complications
== END 2023-12-12 17:05 | disposition home or self-care (01) ==
PROVIDERS: PCP Nurse Practitioner Family; Visit Provider Nurse Practitioner Family
DX: E11.8 Type 2 diabetes mellitus with unspecified complications (principal); S98.112A Complete traumatic amputation of left great toe, initial encounter; Z98.890 Other specified postprocedural states; I10 Essential (primary) hypertension; Z13.9 Encounter for screening, unspecified

== ENCOUNTER → 2023-12-12 13:40 | Outpatient (BNVA) | payer MEDICARE, SELFPAY | PROVIDERS: PCP Nurse Practitioner Family; Visit Provider Nurse Practitioner Family | DX: I10 Essential (primary) hypertension (principal); E11.8 Type 2 diabetes mellitus with unspecified complications; S98.112D Complete traumatic amputation of left great toe, subsequent encounter; Z98.890 Other specified postprocedural states | CPT/HCPCS: 83036; 96127; 99212 ==

== ENCOUNTER 2023-12-18 13:48 | Outpatient (REF) | payer MEDICARE, SELFPAY ==
--- NOTE | ~2023-12-18 | MM_ITS ---
EXAMINATION: BONE DENSITOMETRY CLINICAL INDICATION: Long-term, current, use of systemic steroids. COMPARISON: Previous BD dated 10/21/2019 and baseline BD dated 06/04/2014. TECHNIQUE: Using a [employer] DXA System (software version: 13.1) manufactured by [employer], dual-energy x-ray absorptiometry was performed of the lumbar spine and left hip. The images are of good technical quality. Summary results are attached. FINDINGS: LEFT FEMUR, NECK: Current: BMD 1.041 g/cm2, Z-score 0.5, T-score -0.2, normal. Prior: BMD 0.973 g/cm2. Baseline: BMD 1.182 g/cm2. LEFT FEMUR, TOTAL: Current: BMD 1.000 g/cm2, Z-score -0.4, T-score -0.7, normal, 7.9% increase from previous, 18.2% decrease from baseline (<5% change is not significant). Prior: BMD 0.927 g/cm2. Baseline: BMD 1.222 g/cm2. AP SPINE L1-L4: Current: BMD 1.231 g/cm2, Z-score -0.1, T-score 0.1, normal, 13.8% increase from previous, 24.6% increase from baseline (<5% change is not significant). Prior: BMD 1.082 g/cm2. Baseline: BMD 0.988 g/cm2. IDENTIFIED RISK FACTORS: Rheumatoid arthritis, osteoporosis, glucocorticoids. HISTORY OF FRACTURE: None listed. MEDICATIONS: Vitamin D. MM/XR DEXA axial skeleton IMPRESSION: 1. DIAGNOSIS: Normal bone density based on the lowest T-score value of -0.7 in the total femur applying World Health Organization criteria. 2. 10-YEAR FRACTURE RISK PREDICTION, FRAX: According to the guidelines, FRAX calculation should only be performed on patients in the osteopenia bone density category. Therefore, FRAX was not performed on this patient. 3. Treatment Recommendations: NOF guidelines recommend consideration for treatment in postmenopausal women and men age 50 and older presenting with the following: -A hip or vertebral (clinical or morphometric) fracture. -T-score less than or equal to -2.5 at the femoral neck or spine after appropriate evaluation to exclude secondary causes. -Low bone mass at the hip or spine and a 10-year fracture probability by FRAX of greater than or equal to 3% for hip fracture or greater than or equal to 20% for major osteoporotic fracture based on the [place] adapted WHO algorithm. 4. Other Recommendations: All treatment decisions require clinical judgment and consideration of individual patient factors, including patient preferences, comorbidities, previous drug use, risk factors not captured in the FRAX model (e.g. frailty, falls, vitamin D deficiency, increased bone turnover, interval significant decline in bone density) and possible under or overestimation of fracture risk by FRAX. FUTURE SCAN RECOMMENDATION: People with diagnosed cases of osteoporosis or at high risk for fracture should have regular bone mineral density tests. For patients eligible for Medicare, routine testing is allowed once every 2 years. The testing frequency can be increased to one year for patients who have rapidly progressing disease, those who are receiving or discontinuing medical therapy to restore bone mass, or have additional risk factors. Electronically signed by: Yasir Garcia MD 12/20/2023 11:07 AM EDT
== END 2023-12-18 13:49 | disposition home or self-care (01) ==
LOC: HO.MAMMO 13:48
PROVIDERS: PCP Nurse Practitioner Family; Visit Provider Student in an Organized Health Care Education/Training Program
DX: Z13.820 Encounter for screening for osteoporosis (principal); Z79.52 Long term (current) use of systemic steroids
CPT/HCPCS: 77080

== ENCOUNTER 2023-12-26 08:00 | Outpatient (REF) | payer MEDICARE, SELFPAY ==
[2023-12-26 08:38] LABS: MANUAL DIFF FLAG NO
[2023-12-26 09:08] LABS: Basophils Percent Auto 0.7 % (0-2); Eosinophils Absolute Auto 0.2 X10*3/uL (0.0-0.4); Hematocrit 37.6 % (42.0-52.0); Hemoglobin 12.8 g/dl (14.0-18.0); Imm Gran Abs Auto 0.08 X10*3/uL (0.00-0.03); Imm Gran Pct Auto 1.3 % (0.0-0.4); Lymphocytes Absolute Auto 1.5 X10*3/uL (1.2-4.9); Mean Corpuscular Hemoglobin 32.7 pg (27.0-33.0); Mean Corpuscular Volume 96.2 fL (80.0-98.0); Mean Platelet Volume 9.5 fL (9.4-12.4); Monocytes Absolute Auto 0.5 X10*3/uL (0.1-1.2); Monocytes Percent Auto 8.6 % (2-11); Neutrophils Absolute Auto 3.6 x10*3/uL (2.0-8.3); Neutrophils Percent Auto 60.4 % (45-73); Platelet Count 212 X10*3/uL (160-400); Red Blood Count 3.91 X10*6/uL (4.60-5.80)
[2023-12-26 09:34] LABS: Appearance Urine Cloudy; Color Urine Yellow; Glucose Urine UA Negative (Negative); Leukocyte Esterase Urine Negative (Negative); Nitrite Urine Negative (Negative); PH 5.5 (5.0-9.0); Specific Gravity - Urine 1.025 (1.005-1.025); Urine Blood Negative (Negative); Urine Ketones Negative (Negative); Urine Protein Negative (Neg-Trace)
[2023-12-26 09:46] LABS: Creatinine Urine 170.64 mg/dL; Microalbum/Creatinine Ratio Ur 4.1 ug/mg cr (<30)
[2023-12-26 09:47] LABS: Erythrocyte Sedimentation Rate 13 MM/HR (0-15)
[2023-12-26 10:08] LABS: Alanine Aminotransferase 20 U/L (0-40); Albumin Level 3.8 g/dL (3.5-5.0); Alkaline Phosphatase 56 U/L (39-117); Anion Gap 10 (12-20); Aspartate Amino Transferase 17 U/L (5-37); Bilirubin Total 0.7 mg/dL (0.0-1.0); Blood Urea Nitrogen 12 mg/dL (9-16); C Reactive Protein 0.56 mg/dL (< or = 0.50); Calcium 9.1 mg/dL (8.4-10.2); Carbon Dioxide 27 mmol/L (22-29); Chloride 109 mmol/L (96-108); Cholesterol 154 mg/dL (<200); Estimated Glomerular Filt Rate > 60; Glucose Fasting 111 mg/dL (60-99); HDL Cholesterol 51 mg/dL (>40); LDL Cholesterol Calculated 83 mg/dL (<100); Potassium 4.1 mmol/L (3.3-5.1); Sodium 142 mmol/L (135-145); Total Protein 6.3 g/dL (6.5-8.0); Triglycerides 103 mg/dL (<150)
[2023-12-26 10:34] LABS: Prostate Specific Antigen Scr 3.13 ng/mL (<0.05-4.0)
[2023-12-26 10:45] LABS: TSH reflex Free T4 0.31 uIU/mL (0.32-4.0)
[2023-12-26 12:15] LABS: Free T4 (Free Thyroxine) 0.82 ng/dL (0.71-1.85)
== END 2023-12-26 08:01 | disposition home or self-care (01) ==
LOC: HO.LAB 08:00
PROVIDERS: Absent Provider Student in an Organized Health Care Education/Training Program; PCP Nurse Practitioner Family; Visit Provider Nurse Practitioner Family
DX: Z00.00 Encounter for general adult medical examination without abnormal findings (principal); E11.42 Type 2 diabetes mellitus with diabetic polyneuropathy; Z12.5 Encounter for screening for malignant neoplasm of prostate; Z79.899 Other long term (current) drug therapy; M35.3 Polymyalgia rheumatica
CPT/HCPCS: 36415; 80053; 80061; 81003; 82043; 82570; 84153; 84439; 84443; 85025; 85652; 86140

== ENCOUNTER 2023-12-27 14:16 | Outpatient (AMB) | payer MEDICARE, SELFPAY ==
[2023-12-27 14:35] VITALS: BP 134/72; PULSE 45; O2SAT 97; BMI 40.0
--- NOTE | 2023-12-27 14:35 | A.OFFVIS_ITS ---
Vital Signs 12/27/23 14:35 Height 5 ft 9 in Weight 271 lb 2.697 oz BMI 40.0 BP 134/72 Blood Pressure Location Lt brachial Position Sitting Pulse 45 L Pulse Source Pulse Oximeter Pulse Oximetry (%) 97 Oxygen Delivery Method Room Air Intake Visit Reasons: PMR/CM Intake Note: Patient last seen by Doctor Jamir Sandhu on 08/27/23. Presents today for PMR follow up and test results.? Allergies NSAIDS (Non-Steroidal Anti-Inflamma Allergy (Severe, Verified 12/27/23 14:37) Anaphylaxis methadone Allergy (Intermediate, Verified 12/27/23 14:37) Vomiting Medication List - Last Reconciled 12/27/23 by Jamir Sandhu MD acetaminophen-codeine 300-30 mg 1 tab PO QID PRN 30 days aspirin 81 mg PO DAILY bethanechol chloride 50 mg PO BEDTIME 90 days blood sugar diagnostic (FreeStyle Lite Strips) 1 strip miscellaneous DAILY 30 days cholecalciferol (vitamin D3) 50 mcg PO DAILY 90 days clopidogrel 75 mg PO DAILY CPAP Machine/Device (CPAP) use daily NS [Diabetic shoes with 3 pair of custom orthotics wear daily] diclofenac sodium 1% 4 grams topical QID PRN 30 days epinephrine (EpiPen) 0.3 mg (0.3 mL) IM Q10M PRN folic acid 3 mg (3 x 1 mg) PO DAILY ketoconazole 2% 1 appl topical 2XW Kevzara (sarilumab) 200 mg (1.14 mL) subcut Q2W NS lancets (FreeStyle Lancets) 1 gauge topical DAILY 90 days metformin ER 500 mg PO DAILY 90 days methotrexate sodium 15 mg (6 x 2.5 mg) PO QWEEK metoprolol succinate ER 50 mg PO DAILY naloxone 4 mg/actuation (Narcan) 4 mg intranasal Q2M PRN olopatadine 0.1% 1 drp ophthalmic (eye) DAILY oxybutynin chloride ER 10 mg PO DAILY 90 days pravastatin 40 mg PO DAILY prednisone 10 mg PO DAILY ropinirole 0.5 mg PO BEDTIME semaglutide (Ozempic) 0.5 mg (0.736 mL) subcut QWEEK tamsulosin 0.4 mg PO BID 90 days venlafaxine ER 150 mg PO DAILY 90 days HPI Comments Details: 68-year-old male with PMR returns to clinic with his for evaluation of PMR. Patient states that back in October he had a COVID infection, afterwards he was admitted to the hospital as of a gangrene of his left big toe. he was found to have clots in both legs, stated that he was evaluated by vascular surgeon, he had 2 stents placed in the left lower extremity and 1 stent in the right lower extremity. He was told that those clots were precipitated by COVID infection. He was started on antibiotics around that time and he held his Kevzara and methotrexate at that time. He had left big toe amputation. He states that he has been doing quite well. On prednisone 10 mg daily. Denies any joint pain swelling or stiffness. For his neuropathy he took alpha lipoic acid as prescribed for 3 months without relief [facility] Medical History Amputation of left great toe Cellulitis Dry gangrene Spinal cord stimulator status Polymyalgia rheumatica PAD (peripheral artery disease) Ascending aorta dilatation Sleep apnea Type 2 diabetes mellitus with peripheral neuropathy Diabetes mellitus due to underlying condition with diabetic neuropathy, without long-term current use of insulin Arterial insufficiency Iatrogenic [place]'s disease Morbid obesity Atherosclerotic cardiovascular disease Diabetic neuropathy associated with type 2 diabetes mellitus 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 Seronegative rheumatoid arthritis Obesity (BMI 30-39.9) Vitamin D deficiency Diabetes type 2, controlled Osteopenia Adrenal 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 Painful total knee replacement, right Surgical History Status post amputation History of endarterectomy History of esophagogastroduodenoscopy (EGD) H/O colonoscopy Hx of coronary angiogram History of back surgery (~2017) History of knee replacement procedure of right knee History of knee replacement procedure of left knee Hx of cardiac cath Family History Father Angina pectoris Mother Stroke Social History Household Members: Spouse Housing: House Are you a primary clinical manager home care to a significant other at home: No Do you presently have visiting nurse or other home services: No 75 years or older and lives alone: No Alcohol intake: former Year quit: 2023 Patient Tobacco Use Status: Former Tobacco user Years Smoked: 20 years ago e-Cigarette/Vaping Use: Never Used Second Hand Smoke Exposure: No Substance Use Type: Marijuana service: No Current occupational status: retired Cognitive needs: No Hearing needs: No Vision needs: No Review of Systems Musc Denies arthralgias, Denies joint swelling, Reports numbness, Denies stiffness and Reports tingling Neuro Reports numbness and Reports tingling Physical Exam Vital Signs: Last Vital Signs Pulse 45 L 12/27/23 14:35 BP 134/72 12/27/23 14:35 Pulse Ox 97 12/27/23 14:35 Oxygen Delivery Method Room Air 12/27/23 14:35 BMI result Body Mass Index 40.0 Const General: cooperative, healthy appearing and comfortable Nutritional Appearance: obese morbidly obese Limitations: no limitations HEENT Head: Yes normocephalic and Yes atraumatic Mouth: moist mucous membranes Resp Effort & Inspection: normal respiratory effort and able to speak in complete sentences Auscultation: clear to auscultation bilaterally Cardio Rate: regular rate Skin Other: Few areas of old superficial bruising General skin exam: dry skin Extrem Other: Osteoarthritic changes of both hands with no active synovitis No knee pain with flexion-extension bilaterally Normal range of motion of both shoulders Assessment & Plan Assessment & Plan (1) Polymyalgia rheumatica: Comment: Initially diagnosed as RA?onset 2018. prednisone and eventually methotrexate added. 2020 Humira added with ? improvmenet 10/[address] of Humira[address] MTX & Kevzara self DC 10/2023 when he had arterial thrombosis and left big toe gangrene Prednisone continued Code(s): M35.3 - Polymyalgia rheumatica Category: Medical Plan: This is a 68-year-old male with PMR who returns for follow-up. He self- discontinued Kevzara and methotrexate when he had left big toe gangrene 10/2023. He has continued his prednisone 10 mg daily. He stated that he did not notice a difference when he discontinued Kevzara and methotrexate. He feels quite well overall. Denies any joint pain swelling or stiffness. There has been numerous attempts to taper his prednisone down. Last time we reduced his prednisone to 8 mg daily and patient flared up with significant fatigue and stiffness. Multiple DMARDs were added in an attempt to taper down his prednisone but were unsuccessful. I think at this time patient likely has developed adrenal insufficiency. 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 Bone density is normal on DEXA 12/2023. Patient follows up regularly with his rn pool Dr. Weiner to evaluate for development of cataracts or glaucoma Plan I spent 25 minutes reviewing patient's chart, evaluating patient, ordering diagnostic workup, counseling patient and documenting in the chart Orders: Orders Complete Blood Count Auto Diff 4 Months M35.3 - Polymyalgia rheumatica C Reactive Protein 4 Months M35.3 - Polymyalgia rheumatica Comprehensive Met. Panel 4 Months M35.3 - Polymyalgia rheumatica Erythrocyte Sedimentation Rate 4 Months M35.3 - Polymyalgia rheumatica Medications: Refilled prednisone 10 mg PO DAILY 90 tabs 1RF M35.3 - Polymyalgia rheumatica Discontinued Kevzara (sarilumab) Discontinued Reason: Doctor's Order 200 mg (1.14 mL) subcut Q2W 2.28 mL 2RF NS M35.3 - Polymyalgia rheumatica folic acid Discontinued Reason: Doctor's Order 3 mg (3 x 1 mg) PO DAILY 270 tabs 1RF Z79.60 - USP (current) use of unspecified immunomodulators and immunosuppressants methotrexate sodium Discontinued Reason: Doctor's Order 15 mg (6 x 2.5 mg) PO QWEEK 72 tabs 1RF M06.00 - Rheumatoid arthritis without rheumatoid factor, unspecified site Coding Level of Care Code Est Pt Level 4 (60910) Complex EM visit Add On G2211 Diagnoses Polymyalgia rheumatica M35.3 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
== END 2023-12-27 15:04 | disposition home or self-care (01) ==
PROVIDERS: PCP Nurse Practitioner Family; Visit Provider Student in an Organized Health Care Education/Training Program
DX: M35.3 Polymyalgia rheumatica (principal); Z79.52 Long term (current) use of systemic steroids
CPT/HCPCS: 99214; G2211

== ENCOUNTER → 2023-12-27 14:16 | Outpatient (BNVA) | payer OTHER, SELFPAY | PROVIDERS: PCP Nurse Practitioner Family; Visit Provider Student in an Organized Health Care Education/Training Program | DX: M35.3 Polymyalgia rheumatica (principal); M06.00 Rheumatoid arthritis without rheumatoid factor, unspecified site; Z79.52 Long term (current) use of systemic steroids | CPT/HCPCS: 99212 ==

== ENCOUNTER 2024-01-03 11:35 | Outpatient (AMB) | payer MEDICARE, SELFPAY ==
[2024-01-03 11:37] VITALS: BP 128/82; PULSE 60; O2SAT 96; BMI 41.1
--- NOTE | 2024-01-03 11:37 | MHC.PC.OV ---
Vital Signs 01/03/24 11:37 Height 5 ft 9 in Intake Visit Reasons: EP SOB, low pulse 45 last couple of days Allergies NSAIDS (Non-Steroidal Anti-Inflamma Allergy (Severe, Verified 12/27/23 14:37) Anaphylaxis methadone Allergy (Intermediate, Verified 12/27/23 14:37) Vomiting Tobacco use date assessed: 05/24/23 Dental Screening Dental Screen Date: 05/24/23 [facility] Medical History Amputation of left great toe Cellulitis Dry gangrene Spinal cord stimulator status Polymyalgia rheumatica PAD (peripheral artery disease) Ascending aorta dilatation Sleep apnea Type 2 diabetes mellitus with peripheral neuropathy Diabetes mellitus due to underlying condition with diabetic neuropathy, without long-term current use of insulin Arterial insufficiency Iatrogenic [place]'s disease Morbid obesity Atherosclerotic cardiovascular disease Diabetic neuropathy associated with type 2 diabetes mellitus 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 Seronegative rheumatoid arthritis Obesity (BMI 30-39.9) Vitamin D deficiency Diabetes type 2, controlled Osteopenia Adrenal 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 Painful total knee replacement, right Surgical History Status post amputation History of endarterectomy History of esophagogastroduodenoscopy (EGD) H/O colonoscopy Hx of coronary angiogram History of back surgery (~2017) History of knee replacement procedure of right knee History of knee replacement procedure of left knee Hx of cardiac cath Family History Father Angina pectoris Mother Stroke Social History Household Members: Spouse Housing: House Are you a primary resident care aid to a significant other at home: No Do you presently have visiting nurse or other home services: No 75 years or older and lives alone: No Alcohol intake: former Year quit: 2023 Patient Tobacco Use Status: Former Tobacco user Years Smoked: 20 years ago e-Cigarette/Vaping Use: Never Used Second Hand Smoke Exposure: No Substance Use Type: Marijuana service: No Current occupational status: retired Cognitive needs: No Hearing needs: No Vision needs: No Questionnaire Thrive Questionnaire Date Thrive assessed: 12/12/23 AGUSTINA-7 AMB Questionnaire AGUSTINA-7 Date AGUSTINA - 7 assessed: 12/12/23 Source: Developed by Drs. Sourav Perez, Cyndi Kim, Tino Alvares and colleagues, with an educational melissa from [employer]. Physical exam (Primary Care) Tobacco/Smoking Status: Tobacco use Status Tobacco use date assessed 05/24/23 12/12/23 13:46 Patient Tobacco Use Status Former Tobacco user 12/12/23 13:46 e-Cigarette/Vaping Use Never Used 12/12/23 13:46 Thrive Assessment: Date of Thrive Assessment Date Thrive assessed 12/05/23 12/21/23 10:44 Coding
--- NOTE | 2024-01-03 11:39 | MHC.OFFWIV ---
Intake Vital Signs 01/03/24 11:37 Height 5 ft 9 in Weight 278 lb 4 oz BMI 41.1 BP 128/82 Blood Pressure Location Lt brachial Position Sitting Pulse 60 Pulse Source Pulse Oximeter Pulse Oximetry (%) 96 Oxygen Delivery Method Room Air Intake Visit Reasons: EP SOB, low pulse 45 last couple of days Patient Tobacco Use Status: Former Tobacco user Allergies NSAIDS (Non-Steroidal Anti-Inflamma Allergy (Severe, Verified 01/03/24 13:15) Anaphylaxis methadone Allergy (Intermediate, Verified 01/03/24 13:15) Vomiting Do you need a note to return to daycare/school/sports/work: No HPI HPI Comments History of Present Illness Details This is a 68-year-old male with a past medical history of diabetes, hyperlipidemia, hypertension, peripheral artery disease and recent left great toe amputation presenting for evaluation of shortness for breath. Patient states he has been increasingly short of breath over the past 1 month and recently has been feeling lightheaded when bending forward. Patient states any amount of activity at home we will make him feel short of breath. Patient denies having any fevers, chills, chest pain, wheezing, abdominal pain, dark or bloody stools. Patient states his metoprolol dose was decreased by his primary care provider from 50 mg to 25 mg approximately 2 weeks ago and since that time he has noted that his heart rate has decreased to anywhere between 40 and 50 beats per minute. Of note, patient had laboratories performed last week which reveal a low TSH, normal T4 and new anemia with an H&H of 12.8 & 37.6. 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 Seronegative rheumatoid arthritis Obesity (BMI 30-39.9) Vitamin D deficiency Diabetes type 2, controlled Osteopenia Adrenal 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 Painful total knee replacement, right Surgical History Status post amputation History of endarterectomy History of esophagogastroduodenoscopy (EGD) H/O colonoscopy Hx of coronary angiogram History of back surgery (~2018) History of knee replacement procedure of right knee History of knee replacement procedure of left knee Hx of cardiac cath Family History Father Angina pectoris Mother Stroke Social History Household Members: Spouse Housing: House Are you a primary adult care provider to a significant other at home: No Do you presently have visiting nurse or other home services: No Alcohol intake: former Year quit: 2023 Patient Tobacco Use Status: Former Tobacco user Years Smoked: 20 years ago e-Cigarette/Vaping Use: Never Used Second Hand Smoke Exposure: No Substance Use Type: Marijuana Do you have a plan to hurt others: No Plan service: No Current occupational status: retired Cognitive needs: No Hearing needs: No Vision needs: No Review of Systems Const All systems reviewed & are unremarkable except as noted in HPI and below Reports as per HPI Eyes Reports as per HPI ENT Reports no additional complaints Card Reports no additional complaints, Denies chest pain, Denies rapid heart rate, Denies leg edema, Reports dyspnea, Reports dyspnea on exertion and Reports slow heart rate Resp Denies cough, Denies hemoptysis, Reports dyspnea, Reports dyspnea on exertion and Denies wheezing GI Reports no additional complaints, Denies melena, Denies coffee ground emesis and Denies nausea Reports no additional complaints Psych Reports no additional complaints Endo Reports no additional complaints Aller/Immun Reports no additional complaints and Denies wheezing Physical Exam Vital Signs: Last Vital Signs Pulse 60 01/03/24 11:37 BP 128/82 01/03/24 11:37 Pulse Ox 96 01/03/24 11:37 Oxygen Delivery Method Room Air 01/03/24 11:37 BMI result Body Mass Index 41.1 HR 58 bpm on examination. Const General: cooperative, comfortable, well developed, alert, awake and Physically active; No acute distress or lethargic Nutritional Appearance: overweight Orientation/consciousness: patient oriented x3 and No lethargic Limitations: no limitations and other limitations (post op shoe left foot) HEENT Head: Yes normal to inspection Ears: hearing grossly normal bilaterally Face and sinus: Yes normal facial exam Resp Effort & Inspection: normal respiratory effort, able to speak in complete sentences, abnormal respiratory pattern, no audible wheezes, no cough, respiratory effort not decreased and no respiratory distress Auscultation: clear to auscultation bilaterally, no wheezes and diminished lung sounds Cardio Rate: bradycardic Rhythm: regular rhythm Neuro General: patient oriented x3 Psych Appearance: grossly normal Mental Status: mental status grossly normal Speech and movement: Normal speech and movement present Affect: normal affect Attitude: cooperative Thought process: Normal thought process present Thought content: Normal thought content present Insight: Good insight present (Psych) Judgement: Good judgement present (Psych) Results Reviewed Results Reviewed: EKG 59 sinus bradycardia; no ischemic changes. Assessment & Plan Assessment & Plan (1) Bradycardia: Comment: In review of previous records this patient's bradycardia appears to be new which is suspicious in light of a decrease in his metoprolol dose. Code(s): R00.1 - Bradycardia, unspecified Plan: Patient will go to [facility] Emergency Department for further evaluation and care. Expect received by ARNULFO Basurto at 12:16pm. (2) Dyspnea: Comment: Given patient's recent change in H&H, patient warrants more urgent laboratories and imaging as related to his worsening symptomology. Code(s): R06.00 - Dyspnea, unspecified Qualifiers: Dyspnea type: shortness of breath Qualified Code(s): R06.02 - Shortness of breath Plan: Patient will go to [facility] Emergency Department for further evaluation and care. Plan C-ED by private vehicle. Coding Level of Care Code Est Pt Level 3 (44395) Diagnoses Bradycardia R00.1 Shortness of breath R06.02 Dyspnea type: shortness of breath Time Spent (min) 25
== END 2024-01-03 14:34 | disposition home or self-care (01) ==
PROVIDERS: PCP Nurse Practitioner Family; Visit Provider Physician Assistant
DX: R00.1 Bradycardia, unspecified (principal); R06.02 Shortness of breath

== ENCOUNTER → 2024-01-03 11:35 | Outpatient (BNVA) | payer MEDICARE, SELFPAY | PROVIDERS: PCP Nurse Practitioner Family; Visit Provider Physician Assistant ==

== ENCOUNTER 2024-01-03 12:34 | Observation (INO) | payer MEDICARE, SELFPAY ==
--- NOTE | ~2024-01-03 | CT_ITS ---
EXAMINATION: CT ANGIOGRAM CHEST CLINICAL INFORMATION: Shortness of breath. COMPARISON: Chest radiograph dated 01/03/2024. TECHNIQUE: Multiple axial images were obtained through the chest after the administration of 85 mL of Omnipaque 350 intravenous contrast. Extensive vascular post-processing including two-dimensional and three-dimensional reformatted images were created and reviewed on an independent workstation. This CT examination was performed using dose optimization techniques as appropriate, variously including the following: *Automated exposure control *Adjustment of mA and/or kV according to patient size (this includes techniques or standardized protocols for targeted exams where dose is matched to indication/reason for exam; i.e. extremities or head) *Use of iterative reconstruction technique DLP: 244 mGy-cm FINDINGS: QUALITY OF STUDY/CONTRAST BOLUS: Satisfactory. PULMONARY ARTERIES: No pulmonary emboli. THORACIC AORTA: No thoracic aortic dilatation or dissection. LUNG: No airspace consolidation. No pulmonary nodule or mass. The central airways are patent. PLEURA: No pleural effusion or pneumothorax. MEDIASTINUM: Normal heart size. No pericardial effusion. No hilar or mediastinal lymphadenopathy. No evidence of septal bowing or right heart strain. CORONARY ARTERY CALCIFICATION: None visualized on this study. CHEST WALL/AXILLA: No axillary or internal mammary lymphadenopathy. OSSEOUS STRUCTURES: No acute or suspicious osseous abnormality. UPPER ABDOMEN: Unremarkable. No reflux of contrast into the hepatic veins to suggest elevated right heart pressures. CT/CT angio chest PE protocol IMPRESSION: 1. No CT angiographic evidence of acute pulmonary embolism. 2. No pulmonary nodule, mass, or airspace consolidation. The central airways are patent. VTE: Negative. Fleischner guidelines were followed. Electronically signed by: Mitesh Doran MD 01/04/2024 03:14 PM EDT
--- NOTE | ~2024-01-03 | XR_ITS ---
EXAMINATION: XR CHEST CLINICAL INFORMATION: Shortness of breath COMPARISON: X-ray dated September 11, 2022 TECHNIQUE: 2 views of the chest were obtained. FINDINGS: No consolidation, effusion or pneumothorax. Cardiomediastinal silhouette demonstrates a round cardiac apex. Calcified plaque thoracic aortic arch. Intraspinal canal stimulator electrodes extending up to T8. Multilevel thoracic spondylosis. XR/XR chest 2V IMPRESSION: No acute airspace disease. Electronically signed by: Gerber Rowan MD 01/03/2024 02:50 PM EDT
--- NOTE | 2024-01-03 13:07 | ED_ITS ---
HPI - General Adult General Chief complaint: Dyspnea Stated complaint: sob Time Seen by Provider: 01/03/24 21:01 Source: patient and family Mode of arrival: ambulatory Limitations: no limitations History of Present Illness ED Provider: Dr. Pichardo HPI narrative: Patient is a 68 yo male with CAD, PVD, DM, bifembypass, recent great toe ampuation, endarterectomy, mid LAD lesion and thoracic aortic aneurysm, presents with increasing shortness of breath for 3 weeks. Unable to exert without panting. Denies chest pain Related Data Home Medications ?Medication ?Instructions ?Recorded ?Confirmed olopatadine 0.1 % eye drops 1 drp ophthalmic (eye) DAILY 09/01/21 12/12/23 clopidogrel 75 mg tablet 75 mg PO DAILY 12/06/23 12/12/23 metoprolol tartrate 25 mg tablet 25 mg PO DAILY 01/03/24 Previous Rx's ?Medication ?Instructions ?Recorded blood sugar diagnostic (FreeStyle 1 strip miscellaneous DAILY 30 04/07/20 Lite Strips) days #50 strips lancets 28 gauge (FreeStyle 1 gauge topical DAILY 90 days #100 05/11/20 Lancets) ea epinephrine 0.3 mg/0.3 mL 0.3 mg (0.3 mL) IM Q10M PRN 04/20/21 injection, auto-injector (EpiPen) anaphylaxis #2 ea naloxone 4 mg/actuation nasal 4 mg intranasal Q2M PRN opioid 05/12/21 spray (Narcan) overdose #2 ea aspirin 81 mg tablet,delayed 81 mg PO DAILY #90 tabs 12/28/21 release CPAP Machine/Device (CPAP) #1 ea 04/11/22 Diabetic shoes with 3 pair of #1 ea 05/24/23 custom orthotics oxybutynin chloride 10 mg 10 mg PO DAILY 90 days #90 tabs 07/04/23 tablet,extended release 24 hr tamsulosin 0.4 mg capsule 0.4 mg PO BID 90 days #180 caps 08/13/23 bethanechol chloride 50 mg tablet 50 mg PO BEDTIME 90 days #90 tabs 08/16/23 diclofenac sodium 1 % topical gel 4 g topical QID PRN for pain 30 09/25/23 days #100 grams pravastatin 40 mg tablet 40 mg PO DAILY #90 tabs 11/09/23 acetaminophen 300 mg-codeine 30 mg 1 tab PO QID PRN pain 30 days #90 11/12/23 tablet tabs cholecalciferol (vitamin D3) 50 50 mcg PO DAILY 90 days #90 caps 12/13/23 mcg (2,000 unit) capsule ketoconazole 2 % shampoo 1 appl topical 2XW #120 mL 12/13/23 metformin 500 mg tablet,extended 500 mg PO DAILY 90 days #90 tabs 12/13/23 release 24 hr ropinirole 0.5 mg tablet 0.5 mg PO BEDTIME #90 tabs 12/13/23 semaglutide 0.25 mg or 0.5 mg (2 0.5 mg (0.736 mL) subcut QWEEK #9 12/13/23 mg/3 mL) subcutaneous pen injector mL (Ozempic) venlafaxine 150 mg 150 mg PO DAILY 90 days #90 caps 12/13/23 capsule,extended release 24 hr prednisone 10 mg tablet 10 mg PO DAILY #90 tabs 12/27/23 Allergies Allergy/AdvReac Type Severity Reaction Status Date / Time NSAIDS (Non-Steroidal Allergy Severe Anaphylaxis Verified 01/03/24 13:15 Anti-Inflamma methadone Allergy Intermediate Vomiting Verified 01/03/24 13:15 Review of Systems 2 Review of Systems: Yes all other systems are reviewed and are negative Neurologic: Denies Sensory deficit (Neuro) PMFSH Past Medical History Medical History Amputation of left great toe Cellulitis Dry gangrene Spinal cord stimulator status Polymyalgia rheumatica PAD (peripheral artery disease) Ascending aorta dilatation Sleep apnea Type 2 diabetes mellitus with peripheral neuropathy Diabetes mellitus due to underlying condition with diabetic neuropathy, without long-term current use of insulin Arterial insufficiency Iatrogenic Broseley's disease Morbid obesity Atherosclerotic cardiovascular disease Diabetic neuropathy associated with type 2 diabetes mellitus 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 Seronegative rheumatoid arthritis Obesity (BMI 30-39.9) Vitamin D deficiency Diabetes type 2, controlled Osteopenia Adrenal 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 Painful total knee replacement, right Surgical History Status post amputation History of endarterectomy History of esophagogastroduodenoscopy (EGD) H/O colonoscopy Hx of coronary angiogram History of back surgery (~2018) History of knee replacement procedure of right knee History of knee replacement procedure of left knee Hx of cardiac cath Family History Family History Father Angina pectoris Mother Stroke Social History Social History Household Members: Spouse Housing: House Are you a primary care center manager to a significant other at home: No Do you presently have visiting nurse or other home services: No Alcohol intake: former Year quit: 2023 Patient Tobacco Use Status: Former Tobacco user Years Smoked: 20 years ago Smoked in Last 30 Days: No e-Cigarette/Vaping Use: Never Used Second Hand Smoke Exposure: No Use of substances other than those prescribed or required for medical reasons: No Substance Use Type: Marijuana Advance Directives: No Advance Directives Information Provided: Yes Do you have a plan to hurt others: No Plan service: No Current occupational status: retired Cognitive needs: No Hearing needs: No Vision needs: No Physical Exam ED Vital Signs: Vital Signs - 24 hr 01/03/24 13:09 01/03/24 17:08 01/03/24 20:32 Temperature 98 F 96.6 F L Pulse Rate 66 57 58 Respiratory Rate 16 16 16 Blood Pressure 149/87 H 133/82 148/76 H Pulse Oximetry 97 98 97 Oxygen Delivery Method Room Air Room Air Room Air 01/03/24 22:24 Temperature Pulse Rate 55 Respiratory Rate 16 Blood Pressure 146/59 H Pulse Oximetry 96 Oxygen Delivery Method Room Air BMI result Body Mass Index 40.9 Const Other: obese male in no acute distress Orientation/consciousness: oriented to person and patient oriented x3 Limitations: no limitations HENMT Head: Yes normal to inspection Ears: external ears normal General nose exam: Normal external nose present Mouth: Normal oral and palatal mucosa present and oropharynx normal Throat: Yes posterior oropharynx normal Eyes General: appearance normal, both eyes and all related structures Neck Neck: Yes normal visual inspection Chest Chest palpation & inspection: normal inspection of the chest Resp Auscultation: clear to auscultation bilaterally Cardio Jugular venous distension: no JVD Rate: regular rate Rhythm: regular rhythm Heart sounds: S1 normal heart sound present and S2 normal heart sound present GI Inspection: Yes normal to inspection Palpation (GI): Soft to palpation, nontender and No hepatosplenomegaly present Auscultation: normal bowel sounds General: Yes no CVA tenderness Back/Spine/Pelvis Back: no CVA tenderness Skin General skin exam: no rashes or lesions noted Neuro General: oriented to person and patient oriented x3 Cranial nerves: Yes CN's II-XII intact bilaterally Motor exam (neuro): 5/5 motor strength present throughout Sensory Exam: No Sensory deficit (Neuro) Extrem Other: well healing left great toe amputation Psych Appearance: grossly normal Course Course Course Narrative: RME, this is a rapid medical exam performed by Audi Diaz please refer to primary provider for complete H&P- 68-year-old male past medical history significant for type 2 diabetes, Dennys's disease, peripheral artery disease, hypertension, sleep apnea, polymyalgia rheumatica on chronic steroids presents for shortness of breath, specifically dyspnea on exertion that he 1st noticed about 3 weeks ago. He also complains of dizziness. Plan for cardiac workup. Patient reports recent left great toe remove all due to ?blood clots in my leg. ? Reevaluation(s) Reevaluation #1: Patient with known mid LAD lesion 2 years ago, had nuclear stress last year with no obvious ischemia. However his symptoms seem to be anginal equivalent discussed with Dr. Orta who states I should admit to observation Time: 22:31 Medical Decision Making Differential Diagnosis Differential Diagnoses: The differential diagnosis associated with the presentation includes (CAD, chf, pneumonia, COPD exacerbation) Admission/Observation Consideration of admission/observation: Escalation of care including admission/observation considered (upon arrival patient considered for admission) Consult Healthcare Provider Management of the patient was discussed with: Hospitalist and Sole Tacker Lab Data 01/03/24 13:24 01/03/24 13:24 Labs: Lab Results 01/03/24 Range/Units 13:24 WBC 6.4 (4.8-10.8) X10*3/uL RBC 4.21 L (4.60-5.80) X10*6/uL Hgb 13.5 L (14.0-18.0) g/dl Hct 40.4 L (42.0-52.0) % MCV 96.0 (80.0-98.0) fL MCH 32.1 (27.0-33.0) pg MCHC 33.4 (31.0-36.0) g/dl RDW 13.2 (11.0-16.0) % Plt Count 215 (160-400) X10*3/uL MPV 9.0 L (9.4-12.4) fL Immature Gran % (Auto) 0.6 H (0.0-0.4) % Neut % (Auto) 76.6 H (45-73) % Lymph % (Auto) 13.1 L (20-40) % [place] % (Auto) 7.6 (2-11) % Eos % (Auto) 1.6 (0-4) % Baso % (Auto) 0.5 (0-2) % Lymph # (Auto) 0.8 L (1.2-4.9) X10*3/uL [place] # (Auto) 0.5 (0.1-1.2) X10*3/uL Eos # (Auto) 0.1 (0.0-0.4) X10*3/uL Baso # (Auto) 0.0 (0.0-0.2) X10*3/uL Abs Immat Gran (auto) 0.04 H (0.00-0.03) X10*3/uL Absolute Neuts (auto) 4.9 (2.0-8.3) x10*3/uL Absolute Nucleated RBC 0.000 (0.0-0.012) X10*3/uL Nucleated RBC % (auto) 0.0 (0.0-0.2) /100WBC PT 12.0 (10.9-12.4) SEC INR 1.0 (0.9-1.1) Sodium 137 (135-145) mmol/L Potassium 4.6 (3.3-5.1) mmol/L Chloride 109 H (96-108) mmol/L Carbon Dioxide 20 L (22-29) mmol/L Anion Gap 13 (12-20) BUN 14 (9-16) mg/dL Creatinine 0.79 (0.5-1.4) mg/dL Estim Creat Clear Calc 113.9 Estimated GFR > 60 Random Glucose 138 H (60-115) mg/dL Calcium 9.8 D (8.4-10.2) mg/dL Total Bilirubin 0.7 (0.0-1.0) mg/dL AST 24 (5-37) U/L ALT 28 (0-40) U/L Alkaline Phosphatase 62 (39-117) U/L Troponin I High Sens < 2.7 (<3.5-35.0) ng/L B-Natriuretic Peptide 22 (<100) pg/mL Total Protein 6.8 (6.5-8.0) g/dL Albumin 4.1 (3.5-5.0) g/dL Lipase 31 (8-78) U/L TSH 0.26 L (0.32-4.0) uIU/mL Free T4 0.82 (0.71-1.85) ng/dL Influenza Type A (PCR) NEGATIVE (Negative) Influenza Type B (PCR) NEGATIVE (Negative) RSV RNA Qual (PCR) NEGATIVE (Negative) SARS-CoV-2 RNA (RT-PCR) NEGATIVE (Negative) Independent Interpretation I performed an independent interpretation of an: EKG (atrial fibrillation rate 75, no st twave changes, poor r wave progression) and Plain X-Ray (no pneumonia or chf) Independent Historian Clinical information obtained from an independent historian. History obtained from or confirmed by: Spouse External Record Review External record reviewed: Outpatient record, Prior outpatient labs and Prior outpatient radiology Prescription Management I considered prescription management with: Antibiotic (no pneumonia on xray) Chronic Conditions Patient?s care impacted by: Diabetes and Hypertension Discharge Plan Discharge Clinical Impression: Equivalent angina, Shortness of breath Patient Disposition: Admitted as Observation Print Language: [place] Leonean
[2024-01-03 13:09] VITALS: BP 149/87; PULSE 66; RESP 16; TEMP 36.6; O2SAT 97; BMI 40.9
--- NOTE | 2024-01-03 13:10 | ECG_ITS ---
Test Reason : PAIN Blood Pressure : / mmHG Vent. Rate : 068 BPM Atrial Rate : 067 BPM P-R Int : 178 ms QRS Dur : 090 ms QT Int : 414 ms P-R-T Axes : 027 055 056 degrees QTc Int : 440 ms Artifact in tracing Sinus rhythm with Premature atrial complexes Otherwise normal ECG When compared with ECG of 02-APR-2016 00:50, Premature atrial complexes are now Present Referred By: Phillip Diaz Electronically Signed By:JOHANA MASSEY
[2024-01-03 13:30] LABS: MANUAL DIFF FLAG NO
[2024-01-03 13:32] LABS: Basophils Percent Auto 0.5 % (0-2); Eosinophils Absolute Auto 0.1 X10*3/uL (0.0-0.4); Eosinophils Percent Auto 1.6 % (0-4); Hematocrit 40.4 % (42.0-52.0); Hemoglobin 13.5 g/dl (14.0-18.0); Imm Gran Abs Auto 0.04 X10*3/uL (0.00-0.03); Imm Gran Pct Auto 0.6 % (0.0-0.4); Lymphocytes Absolute Auto 0.8 X10*3/uL (1.2-4.9); Lymphocytes Percent Auto 13.1 % (20-40); Mean Corpuscular HGB Conc 33.4 g/dl (31.0-36.0); Mean Corpuscular Hemoglobin 32.1 pg (27.0-33.0); Monocytes Absolute Auto 0.5 X10*3/uL (0.1-1.2); Monocytes Percent Auto 7.6 % (2-11); Neutrophils Absolute Auto 4.9 x10*3/uL (2.0-8.3); Neutrophils Percent Auto 76.6 % (45-73); Platelet Count 215 X10*3/uL (160-400); Red Blood Count 4.21 X10*6/uL (4.60-5.80); Red Cell Distribution Width 13.2 % (11.0-16.0); White Blood Count 6.4 X10*3/uL (4.8-10.8)
[2024-01-03 13:51] LABS: Alanine Aminotransferase 28 U/L (0-40); Albumin Level 4.1 g/dL (3.5-5.0); Alkaline Phosphatase 62 U/L (39-117); Anion Gap 13 (12-20); Aspartate Amino Transferase 24 U/L (5-37); Bilirubin Total 0.7 mg/dL (0.0-1.0); Blood Urea Nitrogen 14 mg/dL (9-16); Calcium 9.8 mg/dL (8.4-10.2); Carbon Dioxide 20 mmol/L (22-29); Chloride 109 mmol/L (96-108); Creatinine Clr Calc Pharmacy 113.9; Estimated Glomerular Filt Rate > 60; Glucose Random 138 mg/dL (60-115); Lipase 31 U/L (8-78); Potassium 4.6 mmol/L (3.3-5.1); Sodium 137 mmol/L (135-145); Total Protein 6.8 g/dL (6.5-8.0)
[2024-01-03 13:55] LABS: B Type Natriuretic Peptide 22 pg/mL (<100); Troponin-I High Sensitivity < 2.7 ng/L (<3.5-35.0)
[2024-01-03 14:09] LABS: TSH reflex Free T4 0.26 uIU/mL (0.32-4.0)
[2024-01-03 14:12] LABS: Influenza A PCR NEGATIVE (Negative); Influenza B PCR NEGATIVE (Negative); Resp Syncy Virus RNA Qual PCR NEGATIVE (Negative); SARS COV2 PCR INHOUSE NEGATIVE (Negative)
[2024-01-03 14:47] LABS: Free T4 (Free Thyroxine) 0.82 ng/dL (0.71-1.85)
[2024-01-03 17:08] VITALS: BP 133/82; PULSE 57; RESP 16; TEMP 35.9; O2SAT 98
[2024-01-03 20:32] VITALS: BP 148/76; PULSE 58; RESP 16; O2SAT 97
[2024-01-03 22:24] VITALS: BP 146/59; PULSE 55; RESP 16; O2SAT 96
--- NOTE | 2024-01-03 22:55 | P.HPHOSP_ITS ---
History of Present Illness Date of Service: 01/03/24 Attending physician on admission: Yeimi Fischer Chief Complaint: SOB, LEUNG Pt is a 68-year-old male with a PMH significant for HTN, HLD, CAD, peripheral artery disease s/p recent left great toe amputation 11/21/2023, bilateral fempop bypass, polymyalgia rheumatica, rheumatoid arthritis on chronic steroids, BPH, and mood disorder?among others who presents to the ED with?exertional shortness a breath x2-3 weeks. Patient reports he feels lightheaded and dizzy whenever he bends over. Also becomes short of breath with any physical activity; states he ?feels like a fish out of water? gasping uncontrollably for air. Patient denies chest pain, pressure, or palpitations. No orthopnea. Denies lower leg edema. No cough. Denies fever, chills, nausea, vomiting, abdominal pain. Patient follows with Dr. Orta and reports last cardiac catheterization 2 years ago which showed 50% LAD stenosis and other smaller occlusions. Nuclear stress test 1 year ago was apparently read as normal. ED provider contacted Cardiology who recommended admitting patient to the hospital under observation for echocardiogram and stress test in the morning. In the ED pt was mildly hypothermic at 96.6 and hypertensive up to 149/87. Not hypoxic, satting at 98% on RA. Labs were grossly unremarkable and baseline for patient. No leukocytosis. Stable H&H. No significant electrolyte abnormalities. Renal and hepatic function WNL. Troponin negative. BNP WNL at 22. Tested negative for flu, RSV, COVID. CXR showed no acute cardiopulmonary findings. EKG demonstrated artifact and tracing otherwise showing sinus rhythm with PACs and no significant acute ischemic changes. Pt will be admitted to the hospital under observation for further evaluation exertional SOB and dyspnea concerning for anginal equivalent. Review of Systems 2 Review of Systems: Yes all other systems are reviewed and are negative [facility] Medical History Amputation of left great toe Cellulitis Dry gangrene Spinal cord stimulator status Polymyalgia rheumatica PAD (peripheral artery disease) Ascending aorta dilatation Sleep apnea Type 2 diabetes mellitus with peripheral neuropathy Diabetes mellitus due to underlying condition with diabetic neuropathy, without long-term current use of insulin Arterial insufficiency Iatrogenic Huntington's disease Morbid obesity Atherosclerotic cardiovascular disease Diabetic neuropathy associated with type 2 diabetes mellitus [facility] methotrexate user Seronegative rheumatoid arthritis Obesity (BMI 30-39.9) Vitamin D deficiency Diabetes type 2, controlled Osteopenia Adrenal 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 Painful total knee replacement, right Family History Father Angina pectoris Mother Stroke Surgical History Status post amputation History of endarterectomy History of esophagogastroduodenoscopy (EGD) H/O colonoscopy Hx of coronary angiogram History of back surgery (~2018) History of knee replacement procedure of right knee History of knee replacement procedure of left knee Hx of cardiac cath Social History Household Members: Spouse Housing: House Are you a primary special needs child caregiver to a significant other at home: No Do you presently have visiting nurse or other home services: No Alcohol intake: former Year quit: 2023 Patient Tobacco Use Status: Former Tobacco user Years Smoked: 20 years ago Smoked in Last 30 Days: No e-Cigarette/Vaping Use: Never Used Second Hand Smoke Exposure: No Use of substances other than those prescribed or required for medical reasons: No Substance Use Type: Marijuana Advance Directives: No Advance Directives Information Provided: Yes Do you have a plan to hurt others: No Plan service: No Current occupational status: retired Cognitive needs: No Hearing needs: No Vision needs: No Meds Allergies Allergy/AdvReac Type Severity Reaction Status Date / Time NSAIDS (Non-Steroidal Allergy Severe Anaphylaxis Verified 01/03/24 13:15 Anti-Inflamma methadone Allergy Intermediate Vomiting Verified 01/03/24 13:15 Home Medications ?Medication ?Instructions ?Recorded ?Confirmed ?Last Taken ?Type olopatadine 0.1 % eye drops 1 drp ophthalmic (eye) DAILY 09/01/21 12/12/23 Unknown History clopidogrel 75 mg tablet 75 mg PO DAILY 12/06/23 12/12/23 Unknown History metoprolol tartrate 25 mg tablet 25 mg PO DAILY 01/03/24 Unknown History Physical Exam 2 Vital Signs and Narrative: Vital Signs: Last Vital Signs Temp 96.6 F L 01/03/24 17:08 Pulse 55 01/03/24 22:24 Resp 16 01/03/24 22:24 BP 146/59 H 01/03/24 22:24 Pulse Ox 96 01/03/24 22:24 O2 Del Method Room Air 01/03/24 22:24 BMI result Body Mass Index 40.9 General: AOx3, no acute distress Resp: CTA bilaterally CVS: S1, S2, RRR, 2/6 murmur GI: +BS, NT, no distention, obese Skin: Warm, dry Neuro: Cranial nerves II-XII grossly intact bilaterally. Motor grossly intact bilaterally Extremities: No edema. Open wound at site of left great toe amputation. Not grossly infected. As pictured below. Psych: Appropriate affect Results Labs 01/03/24 13:24 01/03/24 13:24 Labs: Laboratory Results - last 24 hr 01/03/24 13:24 MCV 96.0 MCH 32.1 MCHC 33.4 RDW 13.2 Plt Count 215 MPV 9.0 L Immature Gran % (Auto) 0.6 H Neut % (Auto) 76.6 H Lymph % (Auto) 13.1 L [place] % (Auto) 7.6 Eos % (Auto) 1.6 Baso % (Auto) 0.5 Lymph # (Auto) 0.8 L [place] # (Auto) 0.5 Eos # (Auto) 0.1 Baso # (Auto) 0.0 Abs Immat Gran (auto) 0.04 H Absolute Neuts (auto) 4.9 Absolute Nucleated RBC 0.000 Nucleated RBC % (auto) 0.0 PT 12.0 INR 1.0 Anion Gap 13 Estim Creat Clear Calc 113.9 Estimated GFR > 60 Random Glucose 138 H Calcium 9.8 D Total Bilirubin 0.7 AST 24 ALT 28 Alkaline Phosphatase 62 Troponin I High Sens < 2.7 B-Natriuretic Peptide 22 Total Protein 6.8 Albumin 4.1 Lipase 31 TSH 0.26 L Free T4 0.82 Influenza Type A (PCR) NEGATIVE Influenza Type B (PCR) NEGATIVE RSV RNA Qual (PCR) NEGATIVE SARS-CoV-2 RNA (RT-PCR) NEGATIVE Imaging Radiologist's Impressions: Impressions Chest X-Ray 01/03/24 13:10 IMPRESSION: No acute airspace disease. Electronically signed by: Gerber Rowan MD 01/03/2024 02:50 PM EDT Assessment and Plan (1) Shortness of breath: Status: Acute (2) Equivalent angina: Status: Acute Plan Pt is a 68-year-old male with a PMH significant for HTN, HLD, CAD, peripheral artery disease s/p recent left great toe amputation 11/21/2023, bilateral fempop bypass, polymyalgia rheumatica, rheumatoid arthritis on chronic steroids, BPH, and mood disorder?among others who presents to the ED with?exertional shortness a breath x2-3 weeks. Pt will be admitted to the hospital under observation for further evaluation exertional SOB and dyspnea concerning for anginal equivalent. Exertional SOB, dyspnea Concerning for angina Denies chest pain, serial troponins negative, BNP WNL, CXR negative, EKG nonischemic Cardiac catheterization 2 years ago showed LAD 50% stenosis Echocardiogram Stress test Cardiology consult Monitor on telemetry Left great toe amputation Surgery on 11/21/2023 Open wound at site amputation, not grossly infected Does not follow with wound clinic Wound care consult PVD/CAD/HLD Continue aspirin, Plavix, statin [id number] type 2 diabetes Hold metformin Sliding-scale insulin Diabetic diet PMR Continue chronic steroids BPH Tamsulosin, finasteride MAGDALENA CPAP at night Full Code Attending:?Dr. Arenas DVT Prophylaxis: Lovenox Patient will be admitted to the hospital under observation for additional workup of exertional shortness a breath and dyspnea concerning for anginal equivalent. Quality Stroke Does the patient have a stroke diagnosis?: No VTE Prior VTE?: No VTE Risk Level:: Medical - moderate - high VTE Device Contraindication: Treatment Not Indicated VTE Drug Contraindication: N/A - Med Ordered
[2024-01-03 23:34] LABS: Troponin-I High Sensitivity < 2.7 ng/L (<3.5-35.0)
[2024-01-04] VITALS (9 sets, daily range): BP systolic 116–164; BP diastolic 62–88; PULSE 51–68; RESP 14–20; TEMP 36.1–37.1; O2SAT 94–99
--- NOTE | 2024-01-04 01:18 | PC.NURSE ---
20G IV access established in right AC. No signs of infiltration, no pain reported, and pt tolerated well.
--- NOTE | 2024-01-04 01:20 | MHC.EDTECH ---
This pct assumed care of Patient at 2300 ,Vitals taken ,patient belongings list done ,Patient was hooked to to night monitor by this pct .
[2024-01-04 01:21] LABS: Glucose, Whole Blood 109 mg/dL (60-115)
--- NOTE | 2024-01-04 07:00 | CA_ITS ---
Transthoracic Echocardiogram Patient (Last, First, Middle): Lino Nayak K Gender: Male Date of : 1955 Age: 68 Procedure Date: 01/04/2024 Procedure Type: Transthoracic Echocardiogram Location: [facility] [place] Height: 175.26 cm Weight: 125.19 kg BSA: 2.37 m2 Heart Rate: 59 bpm BP: 162 / 79 mmHg Beef Pusher: SB Referring MD: Elizabeth NGUYỄN Symptoms: SOB, LEUNG Study Quality: Adequate w contrast ECG Rhythm: Bradycardia Conclusions: - The left ventricular systolic function is normal. The calculated ejection fraction is 55% by biplane method. - There is moderate calcification of the aortic valve. - There is mild dilatation of the ascending aorta measuring 4.00 cm. Findings Procedure Information Contrast agent, definity, is being given per protocol without apparent complications. Left Ventricle Normal left ventricular cavity size. The left ventricular systolic function is normal. The calculated ejection fraction is 55% by biplane method. There is no evidence of regional wall motion abnormalities. Diastolic function is normal for age. E/E prime ratio is <8, consistent with normal filling pressures. There is moderate septal asymmetric hypertrophy. Right Ventricle Normal right ventricular cavity size and systolic function. Atria Both atria are normal in size. Aortic Valve There is moderate calcification of the aortic valve. There is no aortic valve stenosis. There is no aortic valve regurgitation. Mitral Valve The mitral valve appears normal. There is trace mitral valve regurgitation. There is no mitral valve stenosis. Pulmonic Valve The pulmonic valve is likely normal. Tricuspid Valve There is trace tricuspid valve regurgitation. Tricuspid regurgitation envelope is inadequate for calculation of right ventricular systolic pressure. Great Vessels There is mild dilatation of the ascending aorta measuring 4.00 cm. Venous The inferior vena cava is mildly dilated and collapses greater than 50% with inspiration. Pericardium/Pleural There is no evidence of pericardial effusion. Prior Study Comparison Changes noted compared to prior study dated: 02/14/2023. Ascending aortic size smaller. Unclear if changes are technical. Measurements 2D Linear Measurements IVSd: 1.32 0.6-0.9/0.6-1.0 cm LVIDd: 5.91 3.9-5.3/4.2-5.9 cm LVIDd Index: 2.49 2.4-3.2/2.2-3.1 cm/m2 LVIDs: 3.82 2.0-3.6 cm LVPWd: 0.78 0.7-1.1 cm LA Diam: 4.60 2.7-3.8/3.0-4.0 cm LAIDs Index: 1.94 1.5-2.3 cm/m2 LV Mass: 319.00 67-162/88-224 g LV Mass Index: 134.60 43-95/49-115 g/m2 LVOT Diam: 2.40 3.0+(-)1.3 cm 2D Systolic Function EF 4C: 57.50 >55% EF 2C: 54.70 >55% EF BiP: 55.00 >55% Mitral Valve MV Pk E: 0.73 MV PK A: 0.67 MV Decel Time: 183.00 E/A: 1.10 E'Lateral: 8.81 E'Medial: 5.22 E/E' Med: 14.00 E/E' Lat: 8.30 PHT: 54.00 MVA PHT: 4.07 Decel [place]: 4.01 Aortic Valve AoV Pk [place]: 1.75 AoV Pk Grad: 12.00 CALEB: 2.77 LVOT LVOT Pk [place]: 1.03 LVOT Mn [place]: 0.75 LVOT VTI: 0.24 LVOT Pk Grad: 4.00 LVOT Mn Grad: 3.00 LVOT Diam: 2.40 LVOT Area: 4.52 Diastolic Function MV Pk E: 0.73 MV Pk A: 0.67 E/A: 1.10 E'Medial: 5.22 E/E' Med: 14.00 E' Laterial: 8.81 E/E' Lat: 8.30 Right Ventricle TAPSE (mm): 17.80 TVS' [place]: 11.70 Tricuspid Valve RA Press: 8.00 Great Vessels Aorta Sinus of Valsalva: 3.10 2.0-3.5 cm Ao Asc: 4.00 2.1-3.4 cm Pulmonary Valve PV Pk [place]: 0.90 Peak PV Grad: 3.00 Updated in Other Vendor System with Status of Final Ari Orta MD electronically signed on 01/04/2024 12:06:24 PM with status of Final
[2024-01-04 07:25] LABS: Glucose, Whole Blood 117 mg/dL (60-115)
--- NOTE | 2024-01-04 09:25 | MHC.CM.PN ---
Addendum entered by Krystal Martinez 01/05/24 12:01: PT HCP WAS LOCATED IN [facility] AND NOW ON CHART Original Note: Paul 01/04/24, Pt lives with spouse, he is independent, no home health services, DME: CPAP machine. HCP is on file from 2007, not in this chart, pt. was asked if he wanted to do a new form, he declined, will bring copy in from home. Family to transport home at DC, PCP confirmed: Jas Casarez. DCP: home, self care. CM to follow for DC needs.
[2024-01-04] MEDS: 0.9 % Sodium Chloride Flush 3 ML SYRINGE IVFLUSH ×2 (09:44→17:03)
--- NOTE | 2024-01-04 10:19 | PHA.MEDREC ---
Addendum entered by Harper Marcano RPh 01/04/24 10:56: reviewed by [facility]. Original Note: Pharmacy Consult ? Medication Reconciliation Pharmacy has completed the medication reconciliation. Confirmed medications with patient spouse at bedside and patient. Patient spouse confirmed he just went to see his Dr about a week ago and was able to confirm and update the medications that were changed. She confirmed the patient and spouse agreed to hold the Bethanechol 50mg tab until further notice because the patient and don't want him being on so much medications. Patient confirmed his doctor stopped the Folic Acid tab last week, the doctor switched him from taking Tamsulosin 0.4mg tabs BID to daily now so they can ween him off that medication. The confirmed he still has the Acetaminophen 300mg-Codeine 30mg and takes it when absolutely needed. The stated with me that she gave her a Prednisone 10mg tab in the hospital around 0900, patient and state nurse was made aware patient was getting Prednisone dose from . Patient confirmed that patient is taking Ropinerol 0.5mg tabs when needed and usually takes 2 tabs when he needs to take it. The patient confirmed he took his medications last yesterday morning around 0600.
--- NOTE | 2024-01-04 10:44 | P.CONCA_ITS ---
History of Present Illness History of Present Illness Date of Service: 01/04/24 Chief complaint: sob, morrison, ?cad Narrative: This is a cardiology consultation regarding shortness of breath. Last seen by me in clinic in August this year. History obesity, polymyalgia rheumatica, rheumatoid arthritis on chronic steroids. In the past, he underwent cardiac workup for shortness of breath and that showed nonobstructive disease in the LAD. Medically treated. Current admissions because of shortness of breath and that has been ongoing for the last 3 weeks or so. It seems that he underwent vascular surgery in November at [facility]. Per discharge summary, he was admitted for claudication and left great toe gangrene for which he underwent left-sided femoral endarterectomy and great toe amputation. At that time, it seems he had supraventricular ectopy on telemetry and an echocardiogram had been completed which showed LVEF of 55% with mild aortic stenosis. Currently, he states exertional shortness of breath for the last 3 weeks or so which led to this hospitalization. He does not have any angina. Review of Systems 2 Review of Systems: Yes all other systems are reviewed and are negative Constitutional: Constitutional: Reports as per HPI and Reports no additional constitutional complaints Eyes: Eyes: Reports as per HPI and Denies no additional eye complaints ENT: Denies system reviewed and no additional complaints, except as documented and Reports as per HPI Cardiovascular: Cardiovascular: Reports as per HPI, Reports no additional cardiovascular complaints, Denies acrocyanosis, Denies cool extremities, Denies chest pain, Denies leg edema, Denies lightheadedness, Denies palpitations and Reports dyspnea Respiratory: Respiratory: Reports as per HPI, Denies no additional respiratory complaints and Reports dyspnea Gastrointestinal: Gastrointestinal: Reports as per HPI and Denies no additional gastrointestinal complaints Genitourinary: Genitourinary: Reports no additional male genitourinary complaints and Reports as per HPI Musculoskeletal: Musculoskeletal: Reports no additional musculoskeletal complaints and Reports as per HPI Integumentary/Breasts: Skin/Breast: Reports system reviewed and no additional complaints, except as docu Neurologic: Reports system reviewed and no additional complaints, except as documented and Reports as per HPI Psychiatric: Psychiatric: Reports no additional psychiatric complaints and Reports as per HPI Endocrine: Endocrine: Reports no additional endocrine complaints, Reports as per HPI and Denies palpitations Hematologic/Lymphatic: Hematologic/Lymphatic: Reports no additional hematologic/lymphatic complaints and Reports as per HPI Allergic/Immunologic: Allergic/Immunologic: Reports no additional allergic/immunologic complaints and Reports as per HPI [facility] Past Medical History Medical History Amputation of left great toe Cellulitis Dry gangrene Spinal cord stimulator status Polymyalgia rheumatica PAD (peripheral artery disease) Ascending aorta dilatation Sleep apnea Type 2 diabetes mellitus with peripheral neuropathy Diabetes mellitus due to underlying condition with diabetic neuropathy, without long-term current use of insulin Arterial insufficiency Iatrogenic Ackley's disease Morbid obesity Atherosclerotic cardiovascular disease Diabetic neuropathy associated with type 2 diabetes mellitus 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 Seronegative rheumatoid arthritis Obesity (BMI 30-39.9) Vitamin D deficiency Diabetes type 2, controlled Osteopenia Adrenal 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 Painful total knee replacement, right Family History Family History Father Angina pectoris Mother Stroke Surgical History Surgical History Status post amputation History of endarterectomy History of esophagogastroduodenoscopy (EGD) H/O colonoscopy Hx of coronary angiogram History of back surgery (~2017) History of knee replacement procedure of right knee History of knee replacement procedure of left knee Hx of cardiac cath Social History Social History Household Members: Spouse Housing: House Are you a primary home day care provider to a significant other at home: No Do you presently have visiting nurse or other home services: No Alcohol intake: former Year quit: 2023 Patient Tobacco Use Status: Former Tobacco user Years Smoked: 20 years ago Smoked in Last 30 Days: No e-Cigarette/Vaping Use: Never Used Second Hand Smoke Exposure: No Use of substances other than those prescribed or required for medical reasons: No Substance Use Type: Marijuana Advance Directives: No Advance Directives Information Provided: Yes Do you have a plan to hurt others: No Plan service: No Current occupational status: retired Cognitive needs: No Hearing needs: No Vision needs: No Meds Allergies Allergy/AdvReac Type Severity Reaction Status Date / Time NSAIDS (Non-Steroidal Allergy Severe Anaphylaxis Verified 01/03/24 13:15 Anti-Inflamma methadone Allergy Intermediate Vomiting Verified 01/03/24 13:15 Active Medications: Current Medications Acetaminophen (Acetaminophen 325 Mg Tablet) 650 mg PO Q6H PRN PRN Reason: Pain, Mild (Pain Scale 1-3), fever or headache Aspirin (Aspirin Enteric Coated 81 Mg Tablet.Dr) 81 mg PO DAILY [facility] Benzonatate (Benzonatate 100 Mg Capsule) 100 mg PO TID PRN PRN Reason: Cough Calcium Carbonate (Calcium Carbonate 750 Mg Tab.Chew) 750 mg PO Q4H PRN PRN Reason: Heartburn Clopidogrel Bisulfate (Clopidogrel Bisulfate 75 Mg Tablet) 75 mg PO DAILY [facility] Enoxaparin Sodium (Enoxaparin Sodium 40 Mg/0.4 Ml Syringe) 40 mg SUBCUT Q24H [facility] Last Admin: 01/04/24 00:46 Dose: Not Given Glucose (Glucose Gel 15 Gm Gel..Gram.) 15 gm PO Q15M PRN; Protocol PRN Reason: per Hypoglycemia Standing Ord. Dextrose (D10) 250 mls @ 750 mls/hr IV Q15M PRN; Protocol PRN Reason: per Hypoglycemia Standing Ord. Insulin Human Lispro (Insulin Lispro 100 Unit/Ml 3 Ml Vial) 0.1 - 10 unit SUBCUT QIDACHS [facility]; Protocol Last Admin: 01/04/24 09:09 Dose: Not Given Magnesium Hydroxide (Milk Of Magnesia 30 Ml Oral.Susp) 30 ml PO DAILY PRN PRN Reason: Constipation Melatonin (Melatonin 3 Mg Tablet) 6 mg PO BEDTIME PRN PRN Reason: Insomnia Metformin HCl (Metformin Hcl Er 500 Mg Tab.Er.24h) 500 mg PO DAILY [facility] Metoprolol Tartrate (Metoprolol Tartrate 25 Mg Tablet) 25 mg PO DAILY [facility]; Protocol Ondansetron HCl (Ondansetron Hcl 4 Mg/2 Ml Vial) 4 mg IVPUSH Q8H PRN PRN Reason: Nausea and Vomiting Oxybutynin Chloride (Oxybutynin Chloride Er 5 Mg Tab.Er.24) 10 mg PO DAILY [facility] Pravastatin Sodium (Pravastatin Sodium 40 Mg Tablet) 40 mg PO DAILY [facility] Prednisone (Prednisone 10 Mg Tablet) 10 mg PO DAILY [facility] Ropinirole HCl (Ropinirole Hcl 1 Mg Tablet) 1 mg PO BEDTIME PRN PRN Reason: Restless Leg(S) Sodium Chloride (0.9 % Sodium Chloride Flush 3 Ml Syringe) 3 ml IVFLUSH QSHIFT [facility] Last Admin: 01/04/24 09:44 Dose: 3 ml Tamsulosin HCl (Tamsulosin Hcl 0.4 Mg Capsule) 0.4 mg PO DAILY [facility] Venlafaxine HCl (Venlafaxine Hcl Er 150 Mg Cap.Er.24h) 150 mg PO DAILY [facility] Vitamin D (Cholecalciferol (Vitamin D3) 25 Mcg Tablet) 50 mcg PO DAILY [facility] Home Medications ?Medication ?Instructions ?Recorded ?Confirmed ?Last Taken ?Type clopidogrel 75 mg tablet 75 mg PO DAILY 12/06/23 01/04/24 01/03/24 06:00 History metoprolol tartrate 25 mg tablet 25 mg PO DAILY 01/03/24 01/04/24 01/03/24 06:00 History ropinirole 0.5 mg tablet 1 mg PO BEDTIME PRN Restless Leg(S) 01/04/24 01/04/24 Unknown History semaglutide 0.25 mg or 0.5 mg (2 0.5 mg subcut SA 01/04/24 01/04/24 12/29/23 History mg/3 mL) subcutaneous pen injector (Ozempic) tamsulosin 0.4 mg capsule 0.4 mg PO DAILY 01/04/24 01/04/24 01/03/24 06:00 History Physical Exam 2 Vital Signs: Vital Signs: Last Vital Signs Temp 98.0 F 01/04/24 08:00 Pulse 62 01/04/24 08:00 Resp 20 01/04/24 08:00 BP 116/63 01/04/24 08:00 Pulse Ox 96 01/04/24 08:00 O2 Del Method Room Air 01/04/24 08:00 BMI result Body Mass Index 40.9 Const: General: comfortable and no acute distress O rientation/consciousness: patient oriented x3 HEENT: Other: Unremarkable Head: Yes normal to inspection Neck: Neck: Yes normal visual inspection Chest: Chest palpation & inspection: normal inspection of the chest Resp: Auscultation: clear to auscultation bilaterally Cardio: Palpation: normal PMI Heart sounds: S1 normal heart sound present, S2 normal heart sound present, no gallops, Murmur heart sound present systolic II/ and at the right sternal border and no rubs GI: Palpation (GI): Soft to palpation Back/Spine/Pelvis: Other: unremarkable Skin: General skin exam: no rashes or lesions noted Neuro: General: patient oriented x3 Extrem: Other: Left great toe amputation Psych: Mental Status: mental status grossly normal Objective Labs and Meds 01/03/24 13:24 01/03/24 13:24 Lab results: Laboratory Results - last 24 hr 01/03/24 01/03/24 01/04/24 13:24 23:08 01:16 WBC 6.4 RBC 4.21 L Hgb 13.5 L Hct 40.4 L MCV 96.0 MCH 32.1 MCHC 33.4 RDW 13.2 Plt Count 215 MPV 9.0 L Immature Gran % (Auto) 0.6 H Neut % (Auto) 76.6 H Lymph % (Auto) 13.1 L [place] % (Auto) 7.6 Eos % (Auto) 1.6 Baso % (Auto) 0.5 Lymph # (Auto) 0.8 L [place] # (Auto) 0.5 Eos # (Auto) 0.1 Baso # (Auto) 0.0 Abs Immat Gran (auto) 0.04 H Absolute Neuts (auto) 4.9 Absolute Nucleated RBC 0.000 Nucleated RBC % (auto) 0.0 PT 12.0 INR 1.0 Sodium 137 Potassium 4.6 Chloride 109 H Carbon Dioxide 20 L Anion Gap 13 BUN 14 Creatinine 0.79 Estim Creat Clear Calc 113.9 Estimated GFR > 60 POC Glucose 109 Random Glucose 138 H Calcium 9.8 D Total Bilirubin 0.7 AST 24 ALT 28 Alkaline Phosphatase 62 Troponin I High Sens < 2.7 < 2.7 B-Natriuretic Peptide 22 Total Protein 6.8 Albumin 4.1 Lipase 31 TSH 0.26 L Free T4 0.82 Influenza Type A (PCR) NEGATIVE Influenza Type B (PCR) NEGATIVE RSV RNA Qual (PCR) NEGATIVE SARS-CoV-2 RNA (RT-PCR) NEGATIVE 01/04/24 07:13 WBC RBC Hgb Hct MCV MCH MCHC RDW Plt Count MPV Immature Gran % (Auto) Neut % (Auto) Lymph % (Auto) [place] % (Auto) Eos % (Auto) Baso % (Auto) Lymph # (Auto) [place] # (Auto) Eos # (Auto) Baso # (Auto) Abs Immat Gran (auto) Absolute Neuts (auto) Absolute Nucleated RBC Nucleated RBC % (auto) PT INR Sodium Potassium Chloride Carbon Dioxide Anion Gap BUN Creatinine Estim Creat Clear Calc Estimated GFR POC Glucose 117 H Random Glucose Calcium Total Bilirubin AST ALT Alkaline Phosphatase Troponin I High Sens B-Natriuretic Peptide Total Protein Albumin Lipase TSH Free T4 Influenza Type A (PCR) Influenza Type B (PCR) RSV RNA Qual (PCR) SARS-CoV-2 RNA (RT-PCR) ECG Interpretation: Artifact and racing. Underlying rhythm is sinus with supraventricular ectopy. No ischemic findings. Imaging Radiologist's impression: Impressions Chest X-Ray 01/03/24 13:10 IMPRESSION: No acute airspace disease. Electronically signed by: Gerber Rowan MD 01/03/2024 02:50 PM EDT RP Assessment and Plan (1) Shortness of breath: Status: Acute (2) Atherosclerotic cardiovascular disease: Status: Acute Plan Unremarkable EKG. Cardiac BNP and high sensitivity troponins are within range. Cardiac catheterization 2019-mid LAD 50% stenosis but otherwise no significant findings. Myocardial perfusion imaging study from 02/2023 showed likely normal perfusion. Overall, no clear cardiac etiology for his symptoms. Does not appear to be acute coronary syndrome or acute heart failure. We will repeat his echocardiogram to assess for cardiac function. Also consider CTA for pulmonary embolism. If there is still no clear etiology, we will consider ischemic workup but that is less in the differential. Discussed with , daughter, Dr. Reyes. Procedures Date of Service Date of Service: 01/04/24
[2024-01-04] MEDS: Tamsulosin HCL 0.4 MG CAPSULE PO (11:21)
[2024-01-04] MEDS: Cholecalciferol (Vitamin D3) 25 MCG TABLET 50 MCG PO (11:21)
[2024-01-04] MEDS: Metoprolol Succinate ER 50 MG TAB.ER.24H PO (11:21)
[2024-01-04] MEDS: oxyBUTYnin chloride ER 5 MG TAB.ER.24 10 MG PO (11:21)
[2024-01-04] MEDS: Pravastatin Sodium 40 MG TABLET PO (11:21)
[2024-01-04] MEDS: Clopidogrel Bisulfate 75 MG TABLET PO (11:21)
[2024-01-04] MEDS: Aspirin Enteric Coated 81 MG TABLET.DR PO (11:21)
[2024-01-04] MEDS: Venlafaxine HCl ER 150 MG CAP.ER.24H PO (11:21)
[2024-01-04] MEDS: metFORMIN HCl ER 500 MG TAB.ER.24H PO (11:21)
[2024-01-04 11:24] LABS: Glucose, Whole Blood 133 mg/dL (60-115)
[2024-01-04] MEDS: iohexoL 350 MG/ML 75 ML INFUS..BTL 85 ML IV (11:42)
[2024-01-04 13:05] LABS: Appearance Urine Clear; Color Urine Yellow; Glucose Urine UA Negative (Negative); Leukocyte Esterase Urine Negative (Negative); Nitrite Urine Negative (Negative); PH 5.5 (5.0-9.0); Specific Gravity - Urine >= 1.030 (1.005-1.025); Urine Blood Negative (Negative); Urine Ketones Negative (Negative); Urine Protein Negative (Neg-Trace)
[2024-01-04 13:07] LABS: Bacteria Urine None Seen (None Seen); Hyaline Casts Urine 0-2 /LPF (0-2); RBC Urine 0-2 /HPF (0-2); Squamous Epithelial Cell Urine 0-2 /HPF (0-2); WBC Urine 0-5 /HPF (0-5)
--- NOTE | 2024-01-04 15:59 | P.PNIM_ITS ---
Subjective Subjective Date of Service: 01/04/24 Interval History: No acute issues overnight. Review of Systems Denies chest pain Admits shortness of breath with movement Denies nausea vomiting diarrhea Denies fever chills Physical Exam 2 Vital Signs: Vital Signs: Last Vital Signs Temp 97.9 F 01/04/24 12:00 Pulse 66 01/04/24 12:00 Resp 20 01/04/24 12:00 BP 145/78 H 01/04/24 12:00 Pulse Ox 96 01/04/24 12:00 O2 Del Method Room Air 01/04/24 12:00 BMI result Body Mass Index 40.9 Const: Other: No acute distress Resp: Other: Clear but diminished all garcia. No rales rhonchi or wheezes Cardio: Other: No S4; positive S1-S2; no S3 murmurs rubs or gallops GI: Other: Soft nontender nondistended normoactive bowel sounds Extrem: Other: No edema bilaterally Objective Data Active Medications Acetaminophen (Acetaminophen 325 Mg Tablet) 650 mg PO Q6H PRN PRN Reason: Pain, Mild (Pain Scale 1-3), fever or headache Aspirin (Aspirin Enteric Coated 81 Mg Tablet.) 81 mg PO DAILY [facility] Last Admin: 01/04/24 11:21 Dose: 81 mg Documented By: LIN Benzonatate (Benzonatate 100 Mg Capsule) 100 mg PO TID PRN PRN Reason: Cough Calcium Carbonate (Calcium Carbonate 750 Mg Tab.Chew) 750 mg PO Q4H PRN PRN Reason: Heartburn Clopidogrel Bisulfate (Clopidogrel Bisulfate 75 Mg Tablet) 75 mg PO DAILY [facility] Last Admin: 01/04/24 11:21 Dose: 75 mg Documented By: LIN Enoxaparin Sodium (Enoxaparin Sodium 40 Mg/0.4 Ml Syringe) 40 mg SUBCUT Q24H [facility] Last Admin: 01/04/24 00:46 Dose: Not Given Documented By: MARK Non-Admin Reason: Patient Refused Glucose (Glucose Gel 15 Gm Gel..Gram.) 15 gm PO Q15M PRN; Protocol PRN Reason: per Hypoglycemia Standing Ord. Dextrose (D10) 250 mls @ 750 mls/hr IV Q15M PRN; Protocol PRN Reason: per Hypoglycemia Standing Ord. Insulin Human Lispro (Insulin Lispro 100 Unit/Ml 3 Ml Vial) 0.1 - 10 unit SUBCUT QIDACHS [facility]; Protocol Last Admin: 01/04/24 11:23 Dose: Not Given Documented By: LIN Non-Admin Reason: No Insulin Coverage Magnesium Hydroxide (Milk Of Magnesia 30 Ml Oral.Susp) 30 ml PO DAILY PRN PRN Reason: Constipation Melatonin (Melatonin 3 Mg Tablet) 6 mg PO BEDTIME PRN PRN Reason: Insomnia Metformin HCl (Metformin Hcl Er 500 Mg Tab.Er.24h) 500 mg PO DAILY [facility] Last Admin: 01/04/24 11:21 Dose: 500 mg Documented By: LIN Metoprolol Succinate (Metoprolol Succinate Er 50 Mg Tab.Er.24h) 50 mg PO DAILY [facility]; Protocol Last Admin: 01/04/24 11:21 Dose: 50 mg Documented By: LIN Ondansetron HCl (Ondansetron Hcl 4 Mg/2 Ml Vial) 4 mg IVPUSH Q8H PRN PRN Reason: Nausea and Vomiting Oxybutynin Chloride (Oxybutynin Chloride Er 5 Mg Tab.Er.24) 10 mg PO DAILY [facility] Last Admin: 01/04/24 11:21 Dose: 10 mg Documented By: LIN Pravastatin Sodium (Pravastatin Sodium 40 Mg Tablet) 40 mg PO DAILY [facility] Last Admin: 01/04/24 11:21 Dose: 40 mg Documented By: LIN Prednisone (Prednisone 10 Mg Tablet) 10 mg PO DAILY [facility] Ropinirole HCl (Ropinirole Hcl 1 Mg Tablet) 1 mg PO BEDTIME PRN PRN Reason: Restless Leg(S) Sodium Chloride (0.9 % Sodium Chloride Flush 3 Ml Syringe) 3 ml IVFLUSH QSHIFT [facility] Last Admin: 01/04/24 09:44 Dose: 3 ml Documented By: LIN Tamsulosin HCl (Tamsulosin Hcl 0.4 Mg Capsule) 0.4 mg PO DAILY [facility] Last Admin: 01/04/24 11:21 Dose: 0.4 mg Documented By: LIN Venlafaxine HCl (Venlafaxine Hcl Er 150 Mg Cap.Er.24h) 150 mg PO DAILY [facility] Last Admin: 01/04/24 11:21 Dose: 150 mg Documented By: LIN Vitamin D (Cholecalciferol (Vitamin D3) 25 Mcg Tablet) 50 mcg PO DAILY [facility] Last Admin: 01/04/24 11:21 Dose: 50 mcg Documented By: LIN Labs 01/03/24 13:24 01/03/24 13:24 Labs: Laboratory Results - last 24 hr 01/03/24 01/04/24 01/04/24 23:08 01:16 07:13 POC Glucose 109 117 H Troponin I High Sens < 2.7 Urine Color Urine Appearance Urine pH Ur Specific [place] Urine Protein Urine Glucose (UA) Urine Ketones Urine Blood Urine Nitrite Ur Leukocyte Esterase Urine RBC Urine WBC Ur Squamous Epith Cells Urine Bacteria Hyaline Casts 01/04/24 01/04/24 11:17 12:51 POC Glucose 133 H Troponin I High Sens Urine Color Yellow Urine Appearance Clear Urine pH 5.5 Ur Specific [place] >= 1.030 H Urine Protein Negative Urine Glucose (UA) Negative Urine Ketones Negative Urine Blood Negative Urine Nitrite Negative Ur Leukocyte Esterase Negative Urine RBC 0-2 Urine WBC 0-5 Ur Squamous Epith Cells 0-2 Urine Bacteria None Seen Hyaline Casts 0-2 Assessment and Plan (1) Shortness of breath: Status: Acute (2) HTN (hypertension): Status: Acute (3) Type 2 diabetes mellitus with unspecified complications: Status: Acute Plan Pt is a 68-year-old male with a PMH significant for HTN, HLD, CAD, peripheral artery disease s/p recent left great toe amputation 11/21/2023, bilateral fempop bypass, polymyalgia rheumatica, rheumatoid arthritis on chronic steroids, BPH, and mood disorder?among others who presents to the ED with?exertional shortness a breath x2-3 weeks. Pt will be admitted to the hospital under observation for further evaluation exertional SOB and dyspnea concerning for anginal equivalent. 1.Exertional SOB, dyspnea -appreciate cardiology input -CTA of chest negative for PE or consolidation -echo pending -continue telemetry 2.Left great toe amputation -Surgery on 11/21/2023 -wound care consult 4.Xto-[id number] type 2 diabetes -hold metformin after CTA -lispro correctional scale -adjust as indicated 5.PMR -stable and well compensated -continue prednisone as ordered Full Code Lovenox Will require ongoing hospitalization to complete workup for shortness of breath along with specialty consultation Quality Stroke Does the patient have a stroke diagnosis?: No VTE Prior VTE?: No VTE Risk Level:: Medical - moderate - high VTE Device Contraindication: Treatment Not Indicated VTE Drug Contraindication: N/A - Med Ordered
[2024-01-04 16:45] LABS: Glucose, Whole Blood 146 mg/dL (60-115)
[2024-01-04 20:31] LABS: Glucose, Whole Blood 105 mg/dL (60-115)
--- NOTE | 2024-01-05 | ECG_ITS ---
Test Reason : a-fib Blood Pressure : / mmHG Vent. Rate : 089 BPM Atrial Rate : 000 BPM P-R Int : 000 ms QRS Dur : 102 ms QT Int : 374 ms P-R-T Axes : 000 083 025 degrees QTc Int : 455 ms Atrial fibrillation Abnormal ECG When compared with ECG of 03-JAN-2024 13:12, Atrial fibrillation has replaced Sinus rhythm Referred By: Yeimi Fischer Electronically Signed By:JOHANA MASSEY
[2024-01-05] MEDS: 0.9 % Sodium Chloride Flush 3 ML SYRINGE IVFLUSH ×2 (00:08→10:04)
[2024-01-05 02:44] VITALS: PULSE 73; RESP 14
[2024-01-05 03:49] VITALS: BP 144/65; PULSE 83; RESP 18; TEMP 36.6; O2SAT 98
--- NOTE | 2024-01-05 04:32 | PC.NURSE ---
Pt AOx4, independent in room. RT placed on CPAP @ HS, pt tolerating well. Approx 0100 pt flipped into AFIB, HR 70-80. MD walters, ekg ordered and done, showed AFIB. No med changes at this time. Frequent safety checks, call mcknight within reach.
[2024-01-05 06:45] LABS: MANUAL DIFF FLAG NO
[2024-01-05 07:05] LABS: Glucose, Whole Blood 96 mg/dL (60-115)
[2024-01-05 07:05] LABS: Basophils Percent Auto 0.5 % (0-2); Eosinophils Absolute Auto 0.2 X10*3/uL (0.0-0.4); Eosinophils Percent Auto 3.8 % (0-4); Imm Gran Abs Auto 0.07 X10*3/uL (0.00-0.03); Imm Gran Pct Auto 1.2 % (0.0-0.4); Lymphocytes Absolute Auto 1.5 X10*3/uL (1.2-4.9); Lymphocytes Percent Auto 25.8 % (20-40); Mean Corpuscular HGB Conc 33.3 g/dl (31.0-36.0); Mean Corpuscular Hemoglobin 32.3 pg (27.0-33.0); Mean Corpuscular Volume 96.8 fL (80.0-98.0); Mean Platelet Volume 9.2 fL (9.4-12.4); Monocytes Absolute Auto 0.7 X10*3/uL (0.1-1.2); Monocytes Percent Auto 11.3 % (2-11); Neutrophils Absolute Auto 3.4 x10*3/uL (2.0-8.3); Neutrophils Percent Auto 57.4 % (45-73); Platelet Count 199 X10*3/uL (160-400); Red Blood Count 4.34 X10*6/uL (4.60-5.80); White Blood Count 5.9 X10*3/uL (4.8-10.8)
[2024-01-05 07:16] LABS: Alanine Aminotransferase 20 U/L (0-40); Albumin Level 3.7 g/dL (3.5-5.0); Alkaline Phosphatase 57 U/L (39-117); Anion Gap 15 (12-20); Aspartate Amino Transferase 18 U/L (5-37); Bilirubin Total 0.8 mg/dL (0.0-1.0); Blood Urea Nitrogen 13 mg/dL (9-16); Calcium 9.1 mg/dL (8.4-10.2); Carbon Dioxide 24 mmol/L (22-29); Chloride 109 mmol/L (96-108); Creatinine Clr Calc Pharmacy 118.4; Estimated Glomerular Filt Rate > 60; Glucose Fasting 98 mg/dL (60-99); Potassium 4.5 mmol/L (3.3-5.1); Sodium 143 mmol/L (135-145); Total Protein 6.1 g/dL (6.5-8.0)
[2024-01-05 07:23] VITALS: BP 130/65; PULSE 89; RESP 20; TEMP 36.4; O2SAT 99
[2024-01-05] MEDS: Pravastatin Sodium 40 MG TABLET PO (09:45)
[2024-01-05] MEDS: Cholecalciferol (Vitamin D3) 25 MCG TABLET 50 MCG PO (09:45)
[2024-01-05] MEDS: Aspirin Enteric Coated 81 MG TABLET.DR PO (09:45)
[2024-01-05] MEDS: Tamsulosin HCL 0.4 MG CAPSULE PO (09:45)
[2024-01-05] MEDS: oxyBUTYnin chloride ER 5 MG TAB.ER.24 10 MG PO (09:45)
[2024-01-05] MEDS: Clopidogrel Bisulfate 75 MG TABLET PO (09:46)
[2024-01-05] MEDS: metFORMIN HCl ER 500 MG TAB.ER.24H PO (09:46)
[2024-01-05] MEDS: Venlafaxine HCl ER 150 MG CAP.ER.24H PO (09:46)
[2024-01-05] MEDS: predniSONE 10 MG TABLET PO (09:46)
--- NOTE | 2024-01-05 10:33 | PM.PNCARD ---
Subjective Subjective Date of Service: 01/05/24 Interval history: He states he is feeling okay. Overnight, he went into atrial fibrillation. That is a new diagnosis for him. He did feel some palpitations. Currently, still in atrial fibrillation but controlled rate. Review of Systems Review of Systems Yes all other systems are reviewed and are negative Constitutional: Reports as per HPI and Reports no additional constitutional complaints Eyes: Reports as per HPI and Denies no additional eye complaints Denies system reviewed and no additional complaints, except as documented and Reports as per HPI Cardiovascular: Reports as per HPI, Reports no additional cardiovascular complaints, Denies acrocyanosis, Denies cool extremities, Denies chest pain, Denies leg edema, Denies lightheadedness, Reports palpitations and Reports dyspnea Respiratory: Reports as per HPI, Denies no additional respiratory complaints and Reports dyspnea Gastrointestinal: Reports as per HPI and Denies no additional gastrointestinal complaints Genitourinary: Reports no additional male genitourinary complaints and Reports as per HPI Musculoskeletal: Reports no additional musculoskeletal complaints and Reports as per HPI Skin/Breast: Reports system reviewed and no additional complaints, except as docu Reports system reviewed and no additional complaints, except as documented and Reports as per HPI Psychiatric: Reports no additional psychiatric complaints and Reports as per HPI Endocrine: Reports no additional endocrine complaints, Reports as per HPI and Reports palpitations Hematologic/Lymphatic: Reports no additional hematologic/lymphatic complaints and Reports as per HPI Allergic/Immunologic: Reports no additional allergic/immunologic complaints and Reports as per HPI Physical Exam Vital Signs: Last Vital Signs Temp 97.6 F 01/05/24 07:23 Pulse 89 01/05/24 07:23 Resp 20 01/05/24 07:23 BP 130/65 01/05/24 07:23 Pulse Ox 99 01/05/24 07:23 O2 Del Method Room Air 01/05/24 07:23 BMI result Body Mass Index 40.9 Const General: comfortable and no acute distress Orientation/consciousness: patient oriented x3 HEENT Other: Unremarkable Head: Yes normal to inspection Neck Neck: Yes normal visual inspection Chest Chest palpation & inspection: normal inspection of the chest Resp Auscultation: clear to auscultation bilaterally Cardio Palpation: normal PMI Heart sounds: S1 normal heart sound present, S2 normal heart sound present, no gallops, Murmur heart sound present systolic II/ and at the right sternal border and no rubs GI Palpation (GI): Soft to palpation Back/Spine/Pelvis Other: unremarkable Skin General skin exam: no rashes or lesions noted Neuro General: patient oriented x3 Extrem Other: Left great toe amputation Psych Mental Status: mental status grossly normal Objective Labs and Meds 01/05/24 06:00 01/05/24 06:00 Lab results: Laboratory Results - last 24 hr 01/04/24 01/04/24 01/04/24 11:17 12:51 16:21 WBC RBC Hgb Hct MCV MCH MCHC RDW Plt Count MPV Immature Gran % (Auto) Neut % (Auto) Lymph % (Auto) [place] % (Auto) Eos % (Auto) Baso % (Auto) Lymph # (Auto) [place] # (Auto) Eos # (Auto) Baso # (Auto) Abs Immat Gran (auto) Absolute Neuts (auto) Absolute Nucleated RBC Nucleated RBC % (auto) Sodium Potassium Chloride Carbon Dioxide Anion Gap BUN Creatinine Estim Creat Clear Calc Estimated GFR POC Glucose 133 H 146 H Fasting Glucose Calcium Total Bilirubin AST ALT Alkaline Phosphatase Total Protein Albumin Urine Color Yellow Urine Appearance Clear Urine pH 5.5 Ur Specific [place] >= 1.030 H Urine Protein Negative Urine Glucose (UA) Negative Urine Ketones Negative Urine Blood Negative Urine Nitrite Negative Ur Leukocyte Esterase Negative Urine RBC 0-2 Urine WBC 0-5 Ur Squamous Epith Cells 0-2 Urine Bacteria None Seen Hyaline Casts 0-2 01/04/24 01/05/24 01/05/24 20:28 06:00 06:55 WBC 5.9 RBC 4.34 L Hgb 14.0 Hct 42.0 MCV 96.8 MCH 32.3 MCHC 33.3 RDW 13.0 Plt Count 199 MPV 9.2 L Immature Gran % (Auto) 1.2 H Neut % (Auto) 57.4 Lymph % (Auto) 25.8 [place] % (Auto) 11.3 H Eos % (Auto) 3.8 Baso % (Auto) 0.5 Lymph # (Auto) 1.5 [place] # (Auto) 0.7 Eos # (Auto) 0.2 Baso # (Auto) 0.0 Abs Immat Gran (auto) 0.07 H Absolute Neuts (auto) 3.4 Absolute Nucleated RBC 0.000 Nucleated RBC % (auto) 0.0 Sodium 143 Potassium 4.5 Chloride 109 H Carbon Dioxide 24 Anion Gap 15 BUN 13 Creatinine 0.76 Estim Creat Clear Calc 118.4 Estimated GFR > 60 POC Glucose 105 96 Fasting Glucose 98 Calcium 9.1 D Total Bilirubin 0.8 AST 18 ALT 20 Alkaline Phosphatase 57 Total Protein 6.1 L Albumin 3.7 Urine Color Urine Appearance Urine pH Ur Specific [place] Urine Protein Urine Glucose (UA) Urine Ketones Urine Blood Urine Nitrite Ur Leukocyte Esterase Urine RBC Urine WBC Ur Squamous Epith Cells Urine Bacteria Hyaline Casts Imaging Radiologist's impression: Impressions Chest CTA 01/04/24 11:35 IMPRESSION: 1. No CT angiographic evidence of acute pulmonary embolism. 2. No pulmonary nodule, mass, or airspace consolidation. The central airways are patent. VTE: Negative. Fleischner guidelines were followed. Electronically signed by: Mitesh Doran MD 01/04/2024 03:14 PM EDT RP Progress Note: A&P Assessment and plan (1) Shortness of breath: Status: Acute (2) Atherosclerotic cardiovascular disease: Status: Acute (3) PAF (paroxysmal atrial fibrillation): Status: Acute Plan Unremarkable EKG. Cardiac BNP and high sensitivity troponins are within range. Cardiac catheterization 2018-mid LAD 50% stenosis but otherwise no significant findings. Myocardial perfusion imaging study from 02/2023 showed likely normal perfusion. Echocardiogram as today shows LVEF of 55%. Moderately calcified aortic valve. CTA shows no evidence of pulmonary embolism. Overall, shortness of breath could be related to COVID infection from November and also deconditioning from major vascular surgery. Less likely it is cardiac in etiology. Also, even though atrial fibrillation is detected now unlikely that played a major role as he was not having any atrial fibrillation from the time of admission but still complaining of shortness of breath. Most likely, it is an additional issue. Plan would be to stop the metoprolol as there is a history of anaphylaxis in the past. EpiPen will be ineffective in that case. Start diltiazem. Start Eliquis. Stop Plavix. We will get a Holter monitor for further evaluation. It seems that he might be going in and out of atrial fibrillation based on [facility] records and hence hoping that he will just go back into sinus rhythm. If not, may need outpatient cardioversion after 4 weeks. Discussed with in detail. In case symptoms do get worse, advised him to come back to the ER. Follow-up will be arranged. d/w . Time Spent With Patient Time: Total time managing care of this patient today ____ minutes. Progress Note: Quality Stroke Does the patient have a stroke diagnosis?: No Procedures Date of Service Date of Service: 01/05/24
[2024-01-05 10:56] LABS: Glucose, Whole Blood 160 mg/dL (60-115)
[2024-01-05 11:15] VITALS: BP 124/56; PULSE 89; RESP 18; TEMP 36.2; O2SAT 99
--- NOTE | 2024-01-05 11:43 | P.DS_ITS ---
DS: Providers Provider Date of Service: 01/05/24 Date of admission: 01/03/24 23:47 Date of discharge: 01/05/24 Primary care physician: MERLIN Floyd Consults: 01/03/24 23:47 Consult to Cardiology Routine Consulting Provider: [facility] Reason for consultation: XOCHITL MERINO, ?angina/worsening CAD 01/03/24 23:53 Consult to Wound Care Routine Reason for consultation: Left great toe amputation DS: Diagnosis Discharge Diagnosis (1) Shortness of breath: Status: Resolved (2) Atherosclerotic cardiovascular disease: Status: Acute (3) PAF (paroxysmal atrial fibrillation): Status: Acute DS: Summary Hospital Course Hospital Course: History of presenting illness. Date of Service: 01/03/24 Attending physician on admission: Yeimi Fischer Chief Complaint: XOCHITL MERINO Pt is a 68-year-old male with a PMH significant for HTN, HLD, CAD, peripheral artery disease s/p recent left great toe amputation 11/21/2023, bilateral fempop bypass, polymyalgia rheumatica, rheumatoid arthritis on chronic steroids, BPH, and mood disorder?among others who presents to the ED with?exertional shortness a breath x2-3 weeks. Patient reports he feels lightheaded and dizzy whenever he bends over. Also becomes short of breath with any physical activity; states he ?feels like a fish out of water? gasping uncontrollably for air. Patient denies chest pain, pressure, or palpitations. No orthopnea. Denies lower leg edema. No cough. Denies fever, chills, nausea, vomiting, abdominal pain. Patient follows with Dr. Orta and reports last cardiac catheterization 2 years ago which showed 50% LAD stenosis and other smaller occlusions. Nuclear stress test 1 year ago was apparently read as normal. ED provider contacted Cardiology who recommended admitting patient to the hospital under observation for echocardiogram and stress test in the morning. In the ED pt was mildly hypothermic at 96.6 and hypertensive up to 149/87. Not hypoxic, satting at 98% on RA. Labs were grossly unremarkable and baseline for patient. No leukocytosis. Stable H&H. No significant electrolyte abnormalities. Renal and hepatic function WNL. Troponin negative. BNP WNL at 22. Tested negative for flu, RSV, COVID. CXR showed no acute cardiopulmonary findings. EKG demonstrated artifact and tracing otherwise showing sinus rhythm with PACs and no significant acute ischemic changes. Pt will be admitted to the hospital under observation for further evaluation exertional SOB and dyspnea concerning for anginal equivalent. Hospital course: 68-year-old male with a PMH significant for HTN, HLD, CAD, peripheral artery disease s/p recent left great toe amputation 11/21/2023, bilateral fempop bypass, polymyalgia rheumatica, rheumatoid arthritis on chronic steroids, BPH, and mood disorder?among others presented to ED with?exertional shortness a breath x2-3 weeks and admitted to hospital with a diagnosis of Exertional SOB, dyspnea, CT of chest showed no PE or consolidation, BNP and high sensitivity troponins were within normal range, patient seen by cushion mat maker and it was felt that likely shortness of breaths related to COVID infection from November and deconditioning from major vascular surgery, less likely cardiac in etiology, patient did converted into atrial fibrillation during course of hospitalization, but was felt less likely to be contributing symptom, patient started on diltiazem and Eliquis, due to history of anaphylaxis on EpiPen ,metoprolol was not chosen, plavix was discontinued, it was noted that patient had episode of atrial fibrillation and UMass, patient recommended outpatient follow-up with Cardiology in 4 weeks. In regard to recent Left great toe amputation on 11/21/2023 recommend outpatient follow-up with wound care [id number] type 2 diabetes recommend to resume home medications and diabetic diet PMR continue prednisone, no acute flare noted Time Attestation Discharge Coordination Time (in mins): 38 Quality: Safe Use of Opioids Does Pt have an Active Cancer Diagnosis on the Problem List?: No Quality: Stroke Does the patient have a stroke diagnosis?: No Physical Exam Vital Signs: Vital Signs: Last Vital Signs Temp 97.1 F 01/05/24 11:15 Pulse 89 01/05/24 11:15 Resp 18 01/05/24 11:15 BP 124/56 L 01/05/24 11:15 Pulse Ox 99 01/05/24 11:15 O2 Del Method Room Air 01/05/24 11:15 BMI result Body Mass Index 40.9 Const: Other: General awake alert x3, in no acute distress. Neck no JVD. CVS irregular rate rhythm, Respiratory lungs clear to auscultation, no respiratory distress, no wheeze, no rhonchi. Gastrointestinal abdomen soft, non tender, bowel sounds audible. Extremities no edema. Neuro non focal Skin left 2nd toe amputation, dressing in place, no drainage noted DS: Data Data Completed and Pending Labs on day of discharge: Laboratory Results - last 24 hr 01/04/24 01/04/24 01/04/24 12:51 16:21 20:28 WBC RBC Hgb Hct MCV MCH MCHC RDW Plt Count MPV Immature Gran % (Auto) Neut % (Auto) Lymph % (Auto) [place] % (Auto) Eos % (Auto) Baso % (Auto) Lymph # (Auto) [place] # (Auto) Eos # (Auto) Baso # (Auto) Abs Immat Gran (auto) Absolute Neuts (auto) Absolute Nucleated RBC Nucleated RBC % (auto) Sodium Potassium Chloride Carbon Dioxide Anion Gap BUN Creatinine Estim Creat Clear Calc Estimated GFR POC Glucose 146 H 105 Fasting Glucose Calcium Total Bilirubin AST ALT Alkaline Phosphatase Total Protein Albumin Urine Color Yellow Urine Appearance Clear Urine pH 5.5 Ur Specific [place] >= 1.030 H Urine Protein Negative Urine Glucose (UA) Negative Urine Ketones Negative Urine Blood Negative Urine Nitrite Negative Ur Leukocyte Esterase Negative Urine RBC 0-2 Urine WBC 0-5 Ur Squamous Epith Cells 0-2 Urine Bacteria None Seen Hyaline Casts 0-2 01/05/24 01/05/24 01/05/24 06:00 06:55 10:47 WBC 5.9 RBC 4.34 L Hgb 14.0 Hct 42.0 MCV 96.8 MCH 32.3 MCHC 33.3 RDW 13.0 Plt Count 199 MPV 9.2 L Immature Gran % (Auto) 1.2 H Neut % (Auto) 57.4 Lymph % (Auto) 25.8 [place] % (Auto) 11.3 H Eos % (Auto) 3.8 Baso % (Auto) 0.5 Lymph # (Auto) 1.5 [place] # (Auto) 0.7 Eos # (Auto) 0.2 Baso # (Auto) 0.0 Abs Immat Gran (auto) 0.07 H Absolute Neuts (auto) 3.4 Absolute Nucleated RBC 0.000 Nucleated RBC % (auto) 0.0 Sodium 143 Potassium 4.5 Chloride 109 H Carbon Dioxide 24 Anion Gap 15 BUN 13 Creatinine 0.76 Estim Creat Clear Calc 118.4 Estimated GFR > 60 POC Glucose 96 160 H Fasting Glucose 98 Calcium 9.1 D Total Bilirubin 0.8 AST 18 ALT 20 Alkaline Phosphatase 57 Total Protein 6.1 L Albumin 3.7 Urine Color Urine Appearance Urine pH Ur Specific [place] Urine Protein Urine Glucose (UA) Urine Ketones Urine Blood Urine Nitrite Ur Leukocyte Esterase Urine RBC Urine WBC Ur Squamous Epith Cells Urine Bacteria Hyaline Casts Discharge Plan Discharge Anticipated Discharge Date/Time: 01/05/24 11:37 Patient Disposition: Home, Self-Care Discharge Diagnosis: Paroxysmal atrial fibrillation Referrals: Jas Casarez, [facility]- [Primary Care Provider] - 1 Week Discharge Medications: New diltiazem HCl [Cardizem CD] 120 mg capsule,extended release 24hr 120 mg PO DAILY Qty: 30 0RF Eliquis 5 mg Tablet 5 mg PO BID Qty: 60 0RF Continued epinephrine [EpiPen] 0.3 mg/0.3 mL auto-injector 0.3 mg IM Q10M PRN (Reason: anaphylaxis) Qty: 2 3RF Rx Instructions: for 2 doses aspirin 81 mg tablet,delayed release (DR/EC) 81 mg PO DAILY Qty: 90 3RF (DME) CPAP Machine/Device Device See Rx Instructions .Route Qty: 1 0RF Rx Instructions: use daily cholecalciferol (vitamin D3) 50 mcg (2,000 unit) capsule 50 mcg PO DAILY 90 Days Qty: 90 1RF ketoconazole 2 % shampoo 1 appl topical 2XW Qty: 120 1RF Rx Instructions: When patient showers. venlafaxine 150 mg capsule,extended release 24hr 150 mg PO DAILY 90 Days Qty: 90 1RF metformin 500 mg tablet extended release 24 hr 500 mg PO DAILY 90 Days Qty: 90 1RF oxybutynin chloride 10 mg tablet extended release 24hr 10 mg PO DAILY 90 Days Qty: 90 1RF tamsulosin 0.4 mg capsule 0.4 mg PO DAILY ropinirole 0.5 mg tablet 1 mg PO BEDTIME PRN (Reason: Restless Leg(S)) Rx Instructions: administer 1-3 hours before bedtime Ozempic 0.25 mg or 0.5 mg (2 mg/3 mL) pen injector 0.5 mg subcut SA methotrexate sodium 2.5 mg tablet 15 mg PO QWEEK (DME) Diabetic shoes with 3 pair of custom orthotics See Rx Instructions .Route .MEDSUPPLY Qty: 1 0RF Rx Instructions: wear daily naloxone [Narcan] 4 mg/actuation spray,non-aerosol 4 mg intranasal Q2M PRN (Reason: opioid overdose) Qty: 2 0RF Rx Instructions: spray 1 dose into ONE nostril; alternate nostrils w each dose until help arrives prednisone 10 mg tablet 10 mg PO DAILY Qty: 90 1RF diclofenac sodium 1 % gel 4 g topical QID PRN (Reason: for pain) 30 Days Qty: 100 4RF acetaminophen-codeine 300-30 mg tablet 1 tab PO QID PRN (Reason: pain) 30 Days Qty: 90 0RF Rx Instructions: Partial Fill upon patient request. Discontinued metoprolol succinate 50 mg tablet extended release 24 hr 50 mg PO DAILY clopidogrel 75 mg tablet 75 mg PO DAILY No Action pravastatin 40 mg tablet 40 mg PO DAILY Qty: 90 3RF Discharge Orders: Discharge Order (Routine); Ordered 01/05/24 Ordered By: Nikolay Mckeon Diet: Diabetic diet Activity on Discharge: As tolerated Stand Alone Forms: Patient Portal Discharge page Print Language: Greenlandic Care Plan Goals: Take Eliquis 1 tablet twice daily Take Cardizem CD 120 mg by mouth daily Discontinue metoprolol and Plavix Continue all other medications as before Health Concerns: Diabetes mellitus Status post left great toe amputation follow up with outpatient surgeon and ambulatory restrictions as recommended Plan of Treatment: Outpatient follow-up with Dr. Orta call for appointment 1-2 weeks,, o utpatient Holter monitor for further evaluation Assessment: As above Discharge Date/Time: 01/05/24 14:34
[2024-01-05] MEDS: dilTIAZem HCL CD 120 MG CAP.ER.DEG PO (11:57)
--- NOTE | 2024-01-05 12:01 | MHC.CM.PN ---
PT WILL DC HOME TODAY WITH NO SERVICES VIA PRIVATE TRANSPORT
== END 2024-01-05 14:34 | disposition home or self-care (01) ==
LOC: HO.ED 22:36 → HO.EDOVER 01-04 00:12 → HO.IMC 01-04 00:55
PROVIDERS: Hospitalist; Internal Medicine; Physician Assistant; Admitting Provider Student in an Organized Health Care Education/Training Program; Emergency Provider Emergency Medicine; PCP Nurse Practitioner Family; Visit Provider Hospitalist
DX: I48.0 Paroxysmal atrial fibrillation (principal); R06.02 Shortness of breath; I25.10 Atherosclerotic heart disease of native coronary artery without angina pectoris; M35.3 Polymyalgia rheumatica; R42 Dizziness and giddiness; R07.9 Chest pain, unspecified; I10 Essential (primary) hypertension; E11.8 Type 2 diabetes mellitus with unspecified complications; I73.9 Peripheral vascular disease, unspecified; Z89.412 Acquired absence of left great toe; Z95.828 Presence of other vascular implants and grafts; Z03.818 Encounter for observation for suspected exposure to other biological agents ruled out; Z79.899 Other long term (current) drug therapy
CPT/HCPCS: 0241U; 36415; 71046; 71275; 80053; 81001; 82947; 83690; 83880; 84439; 84443; 84484; 85025; 85610; 93005; 93306; 94660; 99212; 99222; 99285; Q9957; Q9967

== ENCOUNTER → 2024-01-03 13:10 | Outpatient (BNV) | payer MEDICARE, SELFPAY | PROVIDERS: PCP Nurse Practitioner Family; Visit Provider Internal Medicine | DX: I49.1 Atrial premature depolarization (principal) | CPT/HCPCS: 93010 ==

== ENCOUNTER → 2024-01-03 13:10 | Outpatient (BNV) | payer MEDICARE, SELFPAY | PROVIDERS: PCP Nurse Practitioner Family; Visit Provider Radiology Diagnostic Radiology | DX: R06.02 Shortness of breath (principal) | CPT/HCPCS: 71046 ==

== ENCOUNTER 2024-01-03 23:47 | Outpatient (BNV) | payer MEDICARE, SELFPAY | END 2024-01-04 07:00 | PROVIDERS: Admitting Provider Student in an Organized Health Care Education/Training Program; Emergency Provider Emergency Medicine; PCP Nurse Practitioner Family; Visit Provider Internal Medicine | DX: I42.2 Other hypertrophic cardiomyopathy (principal); I35.8 Other nonrheumatic aortic valve disorders | CPT/HCPCS: 93306 ==

== ENCOUNTER 2024-01-03 23:47 | Outpatient (BNV) | payer MEDICARE, SELFPAY | END 2024-01-05 03:42 | PROVIDERS: Admitting Provider Student in an Organized Health Care Education/Training Program; Emergency Provider Emergency Medicine; PCP Nurse Practitioner Family; Visit Provider Internal Medicine | DX: R94.31 Abnormal electrocardiogram [ECG] [EKG] (principal) | CPT/HCPCS: 93010 ==

== ENCOUNTER → 2024-01-03 23:47 | Outpatient (BNV) | payer MEDICARE, SELFPAY | PROVIDERS: Admitting Provider Student in an Organized Health Care Education/Training Program; Emergency Provider Emergency Medicine; PCP Nurse Practitioner Family; Visit Provider Hospitalist | DX: R06.02 Shortness of breath (principal); I25.10 Atherosclerotic heart disease of native coronary artery without angina pectoris; I48.0 Paroxysmal atrial fibrillation | CPT/HCPCS: 99222; 99232; 99239 ==

== ENCOUNTER → 2024-01-03 23:47 | Outpatient (BNV) | payer MEDICARE, SELFPAY | PROVIDERS: Admitting Provider Student in an Organized Health Care Education/Training Program; Emergency Provider Emergency Medicine; PCP Nurse Practitioner Family; Visit Provider Internal Medicine | DX: R06.02 Shortness of breath (principal); I25.10 Atherosclerotic heart disease of native coronary artery without angina pectoris; I48.0 Paroxysmal atrial fibrillation | CPT/HCPCS: 99223; 99233 ==

== ENCOUNTER → 2024-01-14 10:05 | Outpatient (REF) | payer MEDICARE, SELFPAY ==
--- NOTE | 2024-01-14 10:08 | HM_ITS ---
Conclusion: 1. Patient was monitored for total period of 6 days and 21 hours 2. Baseline was normal sinus rhythm with average heart of 70 beats per minute. 3. Intermittent episodes of atrial fibrillation noted with total burden of about 13% with a maximum heart rate of 195 beats per minute atrial fibrillation 4. No significant pauses noted next 5. Frequent PACs noted with total burden of 7.2% 5. Frequent PVCs noted with total burden of 1.6% with 3 triplets of nonsustained ventricular salvos, fastest 122 beats per minute 6. Patient marked the counter 2 times with symptoms of fluttering correlated 1 time with PAC MTDD
== END ==
LOC: HO.CARD 10:05
PROVIDERS: PCP Nurse Practitioner Family; Visit Provider Internal Medicine
DX: I48.0 Paroxysmal atrial fibrillation (principal)
CPT/HCPCS: 93242

== ENCOUNTER → 2024-01-14 10:08 | Outpatient (BNV) | payer MEDICARE, SELFPAY | PROVIDERS: PCP Nurse Practitioner Family; Visit Provider Internal Medicine Cardiovascular Disease | DX: I48.91 Unspecified atrial fibrillation (principal) | CPT/HCPCS: 93244 ==

== ENCOUNTER 2024-02-04 09:48 | Outpatient (AMB) | payer MEDICARE, SELFPAY ==
--- NOTE | 2024-02-04 09:48 | A.OFFVIS_ITS ---
Vital Signs 02/04/24 10:00 Height 5 ft 9 in BP 179/79 H Blood Pressure Location Lt brachial Position Sitting Pulse 64 Pulse Source Pulse Oximeter Pulse Oximetry (%) 98 Oxygen Delivery Method Room Air Intake Visit Reasons: PILL COUNT Intake Note: Lino comes in today for a pill count to acetaminophen-Cod #3, patient should have 0 tablets and presents with 10.5 tablets which he last took about 1 week ago, pain today 07/12 Animal Sticker Required: No Accompanied by: Spouse Allergies NSAIDS (Non-Steroidal Anti-Inflamma Allergy (Severe, Verified 02/04/24 10:01) Anaphylaxis methadone Allergy (Intermediate, Verified 02/04/24 10:01) Vomiting HPI Comments Details: Patient presents today for a pill count. He is supposed to have #0 pills, in his possession has #10.5 pills. This demonstrates a responsible attitude in regards to the medication regimen. Patient reports he was recently hospitalized for shortness of breaths and was diagnosed with paroxismal Afib. He underwent Holter monitoring, Echo, EKG, chest xray and CTA and was started on Eliquis and diltiazem. Denies any fever, cough, shortness of breaths or chest pain. Patient reports left foot deformities with right deviation since he underwent left great toe amputation on 11/21/23 and removed blood clots in his left inner thigh. He has follow up with [facility] next week and Podiatry services today. Patient denies any fever, chills, abdominal dyspnea, constipation, nausea, sedation, dizziness, bowel/bladder dysfunction or saddle anesthesia. He continues to use SCS device with good relief. PRIOR: Patient presents today for wound check status post lumbar SCS Nevro Implant on 05/02/23 and pill count. Patient is accompanied by his . Kailee Zambrano sales representative sales manager is also present during today's visit. Patient reports ongoing 100% pain relief for his back and hip pain and 50% pain relief for his bilateral foot and lower legs pain since procedure. Patient reports improvement in his daily activities and functioning, mobility, and improved tolerance for prolonged standing and walking, and improved sleep. He continues to experience numbness and tingling sensations in his feet, left worse than right. SCS rep has discussed built in programs in SCS device with patient and family to increase pain coverage in legs and feet. Denies any recent cough, cold, infection, fever or other significant changes in medical history since last office visit. The wounds were examined today, both are open to air, dry and intact. No erythema, swelling, redness, tenderness or pathological discharge was noted. Patient is supposed to have #0 pills, in his possession has #19 pills. This demonstrates a responsible attitude in regards to the medication regimen. Patient reports he takes medication mainly for bilateral foot pain and plans to titrate down once SCS program is extended to cover his foot pain as he reports excellent results of his back pain with SCS device. Denies any fever, chills, abdominal dyspnea, constipation, nausea, sedation, dizziness, bowel/bladder dysfunction or saddle anesthesia. Past Procedures: 05/02/23: Lumbar SCS Implant with Nevro-100% pain relief back/hip, 50% pain relief bilateral feet 02/28/23: Lumbar SCS Trial with Nevro-100% pain relief 12/06/21-12/05/22: Qutenza every 3 months-minimal pain relief [facility] Medical History Amputation of left great toe Cellulitis Dry gangrene Spinal cord stimulator status Polymyalgia rheumatica PAD (peripheral artery disease) Ascending aorta dilatation Sleep apnea Type 2 diabetes mellitus with peripheral neuropathy Diabetes mellitus due to underlying condition with diabetic neuropathy, without long-term current use of insulin Arterial insufficiency Iatrogenic Dennys's disease Morbid obesity Atherosclerotic cardiovascular disease Diabetic neuropathy associated with type 2 diabetes mellitus 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 Seronegative rheumatoid arthritis Obesity (BMI 30-39.9) Vitamin D deficiency Diabetes type 2, controlled Osteopenia Adrenal 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 Painful total knee replacement, right Surgical History Status post amputation History of endarterectomy History of esophagogastroduodenoscopy (EGD) H/O colonoscopy Hx of coronary angiogram History of back surgery (~2018) History of knee replacement procedure of right knee History of knee replacement procedure of left knee Hx of cardiac cath Family History Father Angina pectoris Mother Stroke Social History Household Members: Spouse Housing: House Are you a primary careers counsellor to a significant other at home: No Do you presently have visiting nurse or other home services: No 75 years or older and lives alone: No Alcohol intake: former Year quit: 2023 Patient Tobacco Use Status: Former Tobacco user Years Smoked: 20 years ago e-Cigarette/Vaping Use: Never Used Second Hand Smoke Exposure: No Substance Use Type: Marijuana service: No Current occupational status: retired Cognitive needs: No Hearing needs: No Vision needs: No Review of Systems Const All systems reviewed & are unremarkable except as noted in HPI and below Physical Exam General: Appears afebrile. Alert and oriented. Mood and affect appropriate. Follows and participates in conversation appropriately. Respiratory effort is unlabored. No cough. Able to transition from sit to stand unassisted. Ambulates with bilaterally normal heel strike and toe off. Back/Spine/Pelvis Cervical Spine: cervical ROM normal and No Cervical spine tenderness Thoracic/Lumbar Spine: thoracic and lumbar spine normal to inspection, Thoracic/lumbar spine scar(s), Lasegue's sign negative, pain with thoraco-lumbar ROM, paraspinal muscle tenderness, thoraco-lumbar ROM limited, No thoracic spinal tenderness and No lumbar spinal tenderness Extrem Other: Left foot in offloading shoe, dressing dry and intact. General: Yes capillary refill normal, Yes no calf tenderness, Yes amputation noted (left great toe), No clubbing and Yes edema (nonpitting LLE) Psych Appearance: grossly normal Mental Status: mental status grossly normal Speech and movement: Normal speech and movement present Affect: normal affect Attitude: cooperative Thought process: Normal thought process present Thought content: Normal thought content present, suicidality (none), no hallucinations and No Depressive thoughts present Insight: Good insight present (Psych) Judgement: Good judgement present (Psych) Results Reviewed Results Reviewed: XR LUMBOSACRAL SPINE 05/08/2019 CLINICAL INFORMATION: Lower back pain status-post injury. COMPARISON: MRI lumbar spine dated 02/05/2018 and radiographs dated 03/12/2017. TECHNIQUE: 3 views of the lumbosacral spine were obtained. FINDINGS: Bone mineralization is normal. There is a stable slight anterior wedge compression fracture of the L1 vertebral body. There is a mild disc space narrowing and vacuum disc phenomenon extending from T12-L1 through L5-S1. There is a multilevel mild to moderate lower thoracic and lumbar spondylosis. The posterior elements are intact. There are aortoiliac atherosclerotic calcifications. No foreign body is seen. IMPRESSION: 1. There is a very mild anterior wedge compression fracture of the L1 vertebral body, unchanged from the MRI examination of 02/05/2018. 2. There is multilevel lower thoracic and lumbar degenerative disc disease and spondylosis. MR LUMBAR SPINE WITHOUT CONTRAST 02/05/2018 CLINICAL INFORMATION: Low back pain with bilateral hip soreness. COMPARISON: None TECHNIQUE: MRI of the lumbar spine was obtained using routine sequences without contrast. FINDINGS: VERTEBRAL BODIES AND PARASPINAL STRUCTURES: Marrow signal is mildly heterogeneous. There are no compression fractures or subluxations. Mild to moderate multilevel disc space narrowing noted with degenerative endplate Schmorl's nodes. Mild endplate edematous changes noted at the L1 level superiorly, at L5 superiorly and inferiorly, and superiorly at the S1 level. The paraspinal soft tissues appear normal. There are mild degenerative changes of the SI joints. CONUS MEDULLARIS AND CAUDA EQUINA: Normal, terminating at the level of L1. No lower cord signal abnormality is seen. The cauda equina nerve roots are normal. SPINAL LEVELS: L1-L2: Moderate loss of disc height with a diffuse disc bulge and small central protrusion. No central canal stenosis or foraminal narrowing. L2-L3: Mild loss of disc height with a broad-based right subarticular to right foraminal disc protrusion resulting in moderate encroachment. Diffuse disc bulge and mild central canal stenosis. Moderate left foraminal narrowing. L3-L4: Broad-based disc bulge present with bilateral foraminal disc protrusions distorting the exiting L3 nerve roots, right greater than left side. Additional small central disc protrusion contributing to thecal sac deformity. Severe central canal stenosis and thecal sac compression with a generalized disc bulge and hypertrophic facet arthropathy. L4-L5: Central disc protrusion mildly distorting the ventral thecal sac. Hypertrophic facet arthropathy and disc bulge encroach upon the subarticular zones at the site of the traversing L5 nerve roots. Mild central canal stenosis. Mild to moderate foraminal narrowing, worse on the left side. L5-S1: Focal central disc protrusion with mild mass effect upon the right S1 nerve root. No central canal stenosis. Hypertrophic facet arthropathy present. Right foraminal disc protrusion distorts the right L5 nerve root with [id number] encroachment. Bulging disc also abuts the left L5 nerve root in the foramen. IMPRESSION: Multilevel, multifactorial degenerative changes in the lumbar spine, most severe at L3-L4 where there is severe central canal stenosis and thecal sac compression with bilateral foraminal disc protrusions distorting the exiting L3 nerve roots. Small central disc protrusion as well. Assessment & Plan Assessment & Plan (1) Chronic painful diabetic neuropathy: Code(s): E11.40 - Type 2 diabetes mellitus with diabetic neuropathy, unspecified Category: Medical (2) Bilateral foot pain: Code(s): M79.671 - Pain in right foot; M79.672 - Pain in left foot Category: Medical (3) Chronic pain syndrome: Code(s): G89.4 - Chronic pain syndrome Category: Medical (4) Failed back syndrome of lumbar spine: Code(s): M96.1 - Postlaminectomy syndrome, not elsewhere classified Category: Medical Plan Patient has shown accountability for his medication regimen and the pill count was accurate. There is no evidence of misuse, abuse or diversion at this time. Mass[employer] reviewed. Script provided for Tylenol#3 with decreased dose to 1 tab BID prn for moderate- severe pain. Patient has Narcan at home. Patient continues to use [employer] SCS device and [facility]. Follow up with [facility] Endovascular services as scheduled next week. Patient also has Podiatry follow up today. All questions and concerns have been answered and patient agreed with the plan. Follow up in 8 weeks for pill count and sooner as needed. Medications: Changed From acetaminophen-codeine 300-30 mg Partial Fill upon patient request. 1 tab PO QID 30 days PRN 90 tabs 0RF pain M35.3 - Polymyalgia rheumatica, M47.26 - Other spondylosis with radiculopathy, lumbar region, M96.1 - Postlaminectomy syndrome, not elsewhere classified To acetaminophen-codeine 300-30 mg Partial Fill upon patient request. 1 tab PO BID 30 days PRN 60 tabs 0RF pain M35.3 - Polymyalgia rheumatica, M47.26 - Other spondylosis with radiculopathy, lumbar region, M96.1 - Postlaminectomy syndrome, not elsewhere classified Refilled diclofenac sodium 1% 4 grams topical QID 30 days PRN 100 grams 4RF for pain M79.671 - Pain in right foot, M79.672 - Pain in left foot Coding Level of Care Code Est Pt Level 4 (14000) Complex EM visit Add On G2211 Diagnoses Chronic painful diabetic neuropathy E11.40 Bilateral foot pain M79.671; M79.672 Chronic pain syndrome G89.4 Failed back syndrome of lumbar spine M96.1
[2024-02-04 10:00] VITALS: BP 179/79; PULSE 64; O2SAT 98
== END 2024-02-04 10:20 | disposition home or self-care (01) ==
PROVIDERS: PCP Nurse Practitioner Family; Visit Provider Nurse Practitioner Family
DX: E11.40 Type 2 diabetes mellitus with diabetic neuropathy, unspecified (principal); M79.671 Pain in right foot; M79.672 Pain in left foot; G89.4 Chronic pain syndrome; M96.1 Postlaminectomy syndrome, not elsewhere classified
CPT/HCPCS: 99214; G2211

== ENCOUNTER → 2024-02-04 09:48 | Outpatient (BNVA) | payer MEDICARE, SELFPAY | PROVIDERS: PCP Nurse Practitioner Family; Visit Provider Nurse Practitioner Family | DX: M79.672 Pain in left foot (principal); M79.671 Pain in right foot; G89.4 Chronic pain syndrome; M96.1 Postlaminectomy syndrome, not elsewhere classified; M35.3 Polymyalgia rheumatica; M47.26 Other spondylosis with radiculopathy, lumbar region; E11.40 Type 2 diabetes mellitus with diabetic neuropathy, unspecified; Z51.81 Encounter for therapeutic drug level monitoring; Z79.891 Long term (current) use of opiate analgesic | CPT/HCPCS: 99212 ==

== ENCOUNTER 2024-02-18 15:09 | Outpatient (AMB) | payer OTHER, SELFPAY ==
--- OUTSIDE RECORDS SUMMARY | 2024-02-18 15:11 | XMS_ITS | Patient Health Record ---
Author Organization [facility] Address [address] [place] [address] Care Team Providers Care Continuity Clerk Name Role Phone Jas Stone Primary Care Provider Unav Bryanna Chavarria Unavailable [phone] Barrington Cramer Unavailable [phone] Tono Skinner Unavailable [phone] Allergies Allergen (clinical drug ingredient) Drug/Non Drug Allergy documented on EMR Reaction Allergy Type Onset Date Status Motrin anaphylaxis Drug Allergy Activ e ibuprofen Ibuprofen anaphylaxis Drug Allergy Activ e methadone Methadone vomiting Drug Allergy Active Non-steroidal anti-inflammatory agent (FN) NSAIDs anaphylaxis Drug Allergy Active Results Component Value Reference Range Notes HEMOGLOBIN A1C (GLYCOHEMOGLO BIN) Reviewed date:10/24/2023 08:09:15 AM Interpretation: Performing Lab: Notes/Report: HEMOGLOBIN A1C % (HH) 6.1 HEMOGLOBIN A1C (GLYCOHEMOGLO BIN) Reviewed date:02/04/2024 11:28:13 AM Interpretation: Performing Lab: Notes/Report: TOTAL HEMOGLOBIN (HGBA1C) 5.4 Reason For Referral No Information Medications Medication SIG (Take, Route, Frequency, Duration) Notes Start Date End Date Status Cardizem Active Ropinirole Hydrochloride Not-Taking Venlafaxine HCl 75 MG 1 tablet with food Orally Once a day for 30 day(s) Not-Taking Amoxicillin Not-Taki ng EpiPen Active Ketoconazole Not-Dipesh ing Effexor Active Lidocaine-Prilocaine 2.5-2.5 % as directed Externally Not-T aking Aspirin 81 MG 1 tablet Orally Once a day for 30 day(s) Active Naloxone HCl 4 MG/0.1ML as directed Nasally Not-Taking Acetaminophen-Codeine 300-30 MG 1 tablet as needed Orally every 6 hrs Active Olopatadine HCl 0.1 % 1 drop into affect ed eye Ophthalmic Twice a day Not-Taking Plavix Not-Taking Humira Pen 40 MG/0.4ML as directed Subcutaneous Not-Taking Cephalexin 500 MG 1 capsule Orally neil ry 8 hrs for 10 days Not-Taking Keflex 500 MG 1 capsule Orally neil ry 12 hrs for 10 day(s) 10/24/2023 Not-Taking Extra Depth Diabetic Shoes with 3 Pair Custom heat-molded multi-density innersoles for 1 year Dx: 12/13/2021 Active Eliquis Active Vitamin D Active Metoprolol Succinate ER Not-Taking Methotrexate 2.5 MG as directed Orally Not-Taking Magnesium 400 MG as directed Orally Not-Taking Custom Orthotics as directed A ctive Prednisone Active Pravastatin Sodium 40 MG 1 tablet Orally Once a day for 30 day(s) Active Diclofenac Not-Takin g metFORMIN HCl ER 500 MG 1 tablet with ev ening meal Orally twice a day Active EPINEPHrine 0.3 MG/0.3ML as directed Injection Not-Taking Folic Acid 1 MG 1 tablet Orally Once a day for 30 day(s) Active Hydrocortisone Not-T aking Tamsulosin HCl 0.4 MG 1 capsule Orally O nce a day for 30 day(s) Active Immunizations Vaccine Route Administration Date Status Comme nts Influenza Unknown 11/02/2023 Refused Social History Tobacco Use: Social History Observation Description Date Details (start date - stop date) Former Smoker NA - NA Tobacco Use/Smoking Question Answer Notes Are you a: former smoker Additional Findings: Tobacco Non-User Current no n-smoker Alcohol Screen Question Answer Notes Did you have a drink containing alcohol in the p ast year? Yes Points 0 Interpretation Negative Tobacco use other than smoking: Question Answer Notes Are you an other tobacco user? No Problems Problem Type SNOMED Code ICD Code Onset Dates Problem Status W/U Status Risk Notes Problem Chronic ulcer of foot (191333682) Non-pressure chronic ulcer of other part of left foot with fat layer exposed (L97.522) Active confirmed Problem Localized, primary osteoarthritis of the ankle and/or foot (287823032) Primary osteoarthritis, right ankle and foot (M19.071) Active confirmed Problem Localized, primary osteoarthritis of the ankle and/or foot (671727627) Primary osteoarthritis, left ankle and foot (M19.072) Active confirmed Problem Polyneuropathy due to type 2 diabetes mellitus (170737112) Type 2 diabetes mellitus with diabetic polyneuropathy (E11.42) Active confirmed Problem Acquired hammer toe of right foot (681739682583843 5) Hammer toe of right foot (M20.41) Active confirmed Problem Acquired hammer toe of left foot (939547102871709 3) Hammer toe of left foot (M20.42) Active confirmed Problem Acquired hammer toe of left foot (932037742011885 3) Hammertoe of left foot (M20.42) Active confirmed Problem 590127830 Dry gangrene (I96) Active confirmed Problem Skin ulcer of toe of right foot with fat layer exposed (L97.512) Active confirmed Response to treatment Problem Skin ulcer of toe of left foot with fat layer exposed (L97.522) Active confirmed Response to treatment Unchanged Vital Signs Blood pressure diastolic 70 mm Hg 02/11/2024 Height 5ft9in in 02/11/2024 Blood pressure systolic 130 mm Hg 02/11/2024 Weight 280 lbs 02/11/2024 BMI 41.34 kg/m2 02/11/2024 Procedures Procedure Date Ordered Date Performed Result Body Sit e 34928-[id number] SKIN/TISSUE 10/24/2023 N/A 09804-[id number] SKIN/TISSUE 11/02/2023 N/A 40424-[id number] SKIN/TISSUE 02/04/2024 N/A 01430-[id number] SKIN/TISSUE 02/11/2024 N/A 46616 - Tenotomy, open flexor 02/11/2024 N/A Encounters [facility] [address] [facility]/24/[facility]23 Barrington Cramer Skin disease L98.9 ; 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 ; Cellulitis of left lower limb L03.116 ; Dry gangrene I96 and Type 2 diabetes mellitus with diabetic polyneuropathy E11.42 [facility] [address] 11/02/2023 Tono Susanne Skin ulcer of toe of left foot with fat layer exposed L97.522 ; Cellulitis of toe of left foot L03.032 and Type 2 diabetes mellitus with diabetic polyneuropathy E11.[address] [address] 11/07/2023 Barrington Cramer Skin disease L98.9 ; 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 ; Cellulitis of left lower limb L03.116 ; Dry gangrene I96 and Type 2 diabetes mellitus with diabetic polyneuropathy E11.[address] [address] 02/04/2024 Bryanna Garcia Skin ulcer of toe of left foot with fat layer exposed L97.522 ; Hammertoe of left foot M20.42 ; Type 2 diabetes mellitus with diabetic polyneuropathy E11.42 ; History of amputation Z89.9 and Peripheral vascular disease of extremity I73.[address] [address] 02/11/2024 Bryanna Garcia Hammer toe of left foot M20.42 ; Skin ulcer of toe of left foot with fat layer exposed L97.522 ; Type 2 diabetes mellitus with diabetic polyneuropathy E11.42 ; History of amputation Z89.9 and Peripheral vascular disease of extremity I73.[address] [address] 10/24/[address] [address] 10/24/[address] [address] 11/02/2023 Tono Skinner [address] [address] 11/07/[address] [address] 11/13/[address] [address] 02/04/2024 Bryanna Garcia Assessments Encounter Date Diagnosis (ICD Code) Assessment Notes Treatment Notes Treatment Clinical Notes Section Notes 10/24/2023 Non-pressure chronic ulcer of other part of left foot with fat layer exposed (ICD-10 - L97.522) 10/24/2023 Skin disease (ICD-10 - L98.9) 11/02/2023 Cellulitis of toe of left foot (ICD-10 - L03.032) 11/02/2023 Skin ulcer of toe of left foot with fat layer exposed (ICD-10 - L97.522) Response to treatment,Unresol светлана Patient Educated with: WOUND CARE INSTRUCTIONS. pdf (WOUND CARE INSTRUCTIONS. pdf) 11/07/2023 Non-pressure chronic ulcer of other part of left foot with fat layer exposed (ICD-10 - L97.522) 11/07/2023 Skin disease (ICD-10 - L98.9) 02/04/2024 Hammertoe of left foot (ICD-10 - M20.42) 02/04/2024 Skin ulcer of toe of left foot with fat layer exposed (ICD-10 - L97.522) Response to treatment Nonapplicable Patient Educated with: WOUND CARE INSTRUCTIONS. pdf (WOUND CARE INSTRUCTIONS. pdf) 02/11/2024 Hammer toe of left foot (ICD-10 - M20.42) 02/11/2024 Skin ulcer of toe of left foot with fat layer exposed (ICD-10 - L97.522) Response to treatment Unchanged Patient Educated with: WOUND CARE INSTRUCTIONS. pdf (WOUND CARE INSTRUCTIONS. pdf) 02/04/2024 Type 2 diabetes mellitus with diabetic polyneuropathy (ICD-10 - E11.42) 11/07/2023 Cellulitis of left lower limb (ICD-10 - L03.116) 11/02/2023 Type 2 diabetes mellitus with diabetic polyneuropathy (ICD-10 - E11.42) 10/24/2023 Cellulitis of left lower limb (ICD-10 - L03.116) 02/11/2024 Type 2 diabetes mellitus with diabetic polyneuropathy (ICD-10 - E11.42) 10/24/2023 Dry gangrene (ICD-10 - I96) 11/07/2023 Dry gangrene (ICD-10 - I96) 02/11/2024 History of amputation (ICD-10 - Z89.9) 02/04/2024 History of amputation (ICD-10 - Z89.9) 02/04/2024 Peripheral vascular disease of extremity (ICD-10 - I73.9) 02/11/2024 Peripheral vascular disease of extremity (ICD-10 - I73.9) 11/07/2023 Type 2 diabetes mellitus with diabetic polyneuropathy (ICD-10 - E11.42) 10/24/2023 Type 2 diabetes mellitus with diabetic polyneuropathy (ICD-10 - E11.42) 11/02/2023 Other 02/04/2024 Other Patient Educated with: WOUND CARE INSTRUCTIONS. pdf (WOUND CARE INSTRUCTIONS. pdf) Plan Of Treatment Pending Test Test Name Order Date X ray : Ankle, left 3V 12/13/2021 X ray : Foot, left 3V 12/13/2021 X ray : Foot, left 3V 11/02/2023 X ray : Foot, right 3V 12/13/2021 [id number] SKIN/TISSUE 02/04/2024 68158-[id number] SKIN/TISSUE 10/24/2023 [id number] SKIN/TISSUE 11/02/2023 87647-[id number] SKIN/TISSUE 02/11/2024 X ray : Ankle, right 3V 12/13/2021 79014 - Tenotomy, open flexor 02/11/2024 Next Appt Details Provider Name:Bryanna Hand ian, 02/20/2024 11:45:00 AM, [address] [place], [address], Insurance Providers Payer Name Payer Address Payer Phone Subscriber Number Group Number Insured Name Patient Relationship to Insured Coverage Start Date Coverage End Date [facility] 65 Medicare Preferred [address] [place] [address] [id number] Lino Nayak Self - patient is the insured Medical (General) History Medical History History ICD Code Adrenal insufficiency due to corticoster oid withdrawal Arterial insufficiency Arthritis Atherosclerotic cardiovascular disease Back,Hip,and Knee pain type II diabetes Diabetic nephropathy Joint implants/screws Iatrogenic cushings disease Measles Mumps Numbness Obesity, morbid Osteopenia Osteoporosis Painful total knee replacement, right Poor circulation Seronegative rheumatoid arthritis Stents Vitamin D deficiency Surgical History Surgery Date(Month/Year) back surgery left knee replacement right knee replacement cardiac catheterization coronary angiogram spinal stenosis surgery 2019 bilateral TKR [id number] Stent Hospitalization History Reason Date(Month/Year) Capsasin treatment x30 minutes/4x year 1 [address] dosw 12/04/2021 Stent Right leg 09/13/2021 Stent Left leg 08/09/2021 Ultrasound Bilateral legs, angiogram Lef t leg 06/30/2021 Injection, [facility] 07/06/2021 MRI Left Foot 03/10/2021 Xray left Foot 03/04/2021
--- OUTSIDE RECORDS SUMMARY | 2024-02-18 15:11 | XMS_ITS ---
Author Organization [facility] Address [address] [facility] [place] [place] [address] Care Team Providers Care Lacquer Mixer Name Role Phone Jas Stone Primary Care Provider Unav Bryanna Chavarria Unavailable [phone] Allergies Allergen (clinical drug ingredient) Drug/Non Drug Allergy documented on EMR Reaction Allergy Type Onset Date Status Motrin anaphylaxis Drug Allergy Activ e ibuprofen Ibuprofen anaphylaxis Drug Allergy Activ e methadone Methadone vomiting Drug Allergy Active Non-steroidal anti-inflammatory agent (FN) NSAIDs anaphylaxis Drug Allergy Active REASON FOR VISIT Open sore - Toe Medications Medication SIG (Take, Route, Frequency, Duration) Notes Start Date End Date Status Aspirin 81 MG 1 tablet Orally Once a day for 30 day(s) Active Effexor Active Folic Acid 1 MG 1 tablet Orally Once a day for 30 day(s) Active EpiPen Active Magnesium 400 MG as directed Orally Not-Taking Cardizem Active Eliquis Active Acetaminophen-Codeine 300-30 MG 1 tablet as needed Orally every 6 hrs Active Diclofenac Not-Takin g EPINEPHrine 0.3 MG/0.3ML as directed Injection Not-Taking Olopatadine HCl 0.1 % 1 drop into affect ed eye Ophthalmic Twice a day Not-Taking Lidocaine-Prilocaine 2.5-2.5 % as directed Externally Not-T aking Naloxone HCl 4 MG/0.1ML as directed Nasally Not-Taking Hydrocortisone Not-T aking Ketoconazole Not-Dipesh ing Amoxicillin Not-Taki ng Plavix Not-Taking Ropinirole Hydrochloride Not-Taking Venlafaxine HCl 75 MG 1 tablet with food Orally Once a day for 30 day(s) Not-Taking Humira Pen 40 MG/0.4ML as directed Subcutaneous Not-Taking Extra Depth Diabetic Shoes with 3 Pair Custom heat-molded multi-density innersoles for 1 year Dx: 12/13/2021 Active Vitamin D Active Keflex 500 MG 1 capsule Orally neil ry 12 hrs for 10 day(s) 10/24/2023 Not-Taking Custom Orthotics as directed A ctive Cephalexin 500 MG 1 capsule Orally neil ry 8 hrs for 10 days Not-Taking Metoprolol Succinate ER Not-Taking Methotrexate 2.5 MG as directed Orally Not-Taking Prednisone Active Pravastatin Sodium 40 MG 1 tablet Orally Once a day for 30 day(s) Active Tamsulosin HCl 0.4 MG 1 capsule Orally O nce a day for 30 day(s) Active metFORMIN HCl ER 500 MG 1 tablet with ev ening meal Orally twice a day Active Social History Tobacco Use: Social History Observation [...] Problem Status W/U Status Risk Notes Problem Skin ulcer of toe of right foot with fat layer exposed (L97.512) Active confirmed Response to treatment Problem Acquired hammer toe of left foot ([id number]) Hammertoe of left foot (M20.42) Active confirmed Vital Signs Blood pressure systolic 130 mm Hg 02/04/20 24 Blood pressure diastolic 70 mm Hg 024 Height 5ft9in in 02/04/2024 Weight 280 lbs 02/04/2024 BMI 41.34 kg/m2 02/04/2024 Procedures Procedure Date Ordered Date Performed Result Body Sit e 07517-[id number] SKIN/TISSUE 02/04/2024 N/A Encounters Encounter Location Date Provider Diagnosis [facility] [place] [address] [place] [address] 02/04/2024 Bryanna Garcia Skin ulcer of toe of left foot with fat layer exposed L97.522 ; Hammertoe of left foot M20.42 ; Type 2 diabetes mellitus with diabetic polyneuropathy E11.42 ; History of amputation Z89.9 and Peripheral vascular disease of extremity I73.9 Assessments Encounter Date Diagnosis (ICD Code) Assessment Notes Treatment Notes Treatment Clinical Notes Section Notes 02/04/2024 Skin ulcer of toe of left foot with fat layer exposed (ICD-10 - L97.522) Response to treatment Nonapplicable Patient Educated with: WOUND CARE INSTRUCTIONS. pdf (WOUND CARE INSTRUCTIONS. pdf) 02/04/2024 Hammertoe of left foot (ICD-10 - M20.42) 02/04/2024 Type 2 diabetes mellitus with diabetic polyneuropathy (ICD-10 - E11.42) 02/04/2024 History of amputation (ICD-10 - Z89.9) 02/04/2024 Peripheral vascular disease of extremity (ICD-10 - I73.9) 02/04/2024 Other Patient Educated with: WOUND CARE INSTRUCTIONS. pdf (WOUND CARE INSTRUCTIONS. pdf) Plan Of Treatment Treatment Notes Assessment Notes Skin ulcer of toe of left fo ot with fat layer exposed Patient Educated with: WOUND CARE INSTRUCTIONS.pdf (WOUND CARE INSTRUCTIONS.pdf) Other Patient Educated wit h: WOUND CARE INSTRUCTIONS.pdf (WOUND CARE INSTRUCTIONS.pdf) Pending Test Test Name Order Date [id number] SKIN/TISSUE 02/04/2024 Next Appt Details Follow Up: 1 Week, Reason: Provider Name:Bryanna Nolascotahir sosa, 02/20/2024 11:45:00 AM, [address] [place] [address], [id number], Procedure Notes * Category Sub-Category Detail Notes Debride skin and subQ Open wound Physician of record performed open wound selective debridement of devitalized necrotic/nonviable soft tissue, fibrin, exudate, epidermis, dermis, thru skin and subcutaneous fat tissue, first 20 sq cm or less, using sharp dissection with sterile 15 blade, and/or tissue nippers. ANESTHESIA- was accomplished TOPICALLY with Lidocaine Hydrochloride Jelly 2 percent, Sterile antibiotic dressing applied. Hemostasis was controlled through direct pressure. Post debridement measurements: 22 mm x _12 mm x 3 mm. Character of the wound post debriement is stable (19293) Progress Notes * Lino OLIVEIRA KDOB: [birth year] (68 yo M)Acc No.[id number]:02/04/2024 Progress Note Patient:?Lino OLIVEIRA Provider:?Bryanna Garcia DPM :1955???Age:68 Y???Sex:Male Wei e:02/04/2024 Address:[address] [place] [address], [place], [id number] Pcp:LADONNA Arreola Subjective: * Chief Complaints: * ???Open sore - Toe * HPI: ???Skin problems:?Duration:?several weeks.?Treatments:?Local care consisting of daily distilled water wound cleanse, topical antibiotic as recommended, application of sterile dressing, offloading/pressure reduction via rest, shoe modification, insert modification, accommodative padding, assisted ambulation via cane/ crutch/ walker/ wheel chair/ knee scooter, and surgical debridement, , states adherence to recommended treatment application.?Toe pain:?Nature:?deformity, hammering of second and third toe following hallux amputation.?Duration:?several weeks.?Course:?worse.? * ROS:?General/Constitutional:?Nausea?denies, denies.?Vomiting?denies, denies.?Hunger Thirst?denies, denies.?Loss appetite?denies, denies.?Chills?denies, denies.?Fatigue?denies, denies.?Fever?denies, denies.?Night Sweats denies, denies.?Unexplained weight loss?denies, denies.?Unexplained weight gain?denies.?Ophthalmologic:?Blurred vision?denies.?Red eye?denies.?HEENTM:?Dentures?denies, denies.?Dizziness?denies, denies.?Glasses/contacts?admits, denies.?Retinopathy?denies, denies.?Blurred/double vision?denies, denies.?TMJ?denies, denies.?Discharge/drainage?denies, denies.?Implants?denies, denies.?Sore throat?denies.?Dental implants?denies.?Hard of hearing ?admits, denies.?Difficulty chewing/swallowing/speaking?denies, denies.?Nose bleeds?denies, denies.?Sore mouth?denies, denies.?Swollen glands?denies.?Respiratory:?On Oxygen?denies, denies.?Pneumonia/pleurisy?denies, denies.?Bronchitis?denies, denies.?Emphysema?denies, denies.?Coughing?denies, denies.?Cough blood?denies, denies.?Shortness of breath?denies, denies.?Wheezing?denies, denies.?Cardiovascular:?Pacemaker?denies, denies.?MVP?denies, denies.?WPW?denies, denies.?CHF?denies, denies.?Heart attack?denies, denies.?Septal defect?denies, denies.?Rapid beat?denies, denies.?Chest pain ?denies, denies.?Atrial Fib.?denies, denies.?Murmur/Palpitations?denies, denies.?Gastrointestinal:?Hemorrhoids?denies, denies.?Stomach/Abdominal pain?denies, denies.?Dark blood stool?denies, denies.?Irritable bowel ?denies, denies.?Constipation?denies, denies.?Diarrhea?denies, denies.?Vomiting?denies.?Hematology:?Swelling?denies, denies.?Clots?denies.?Varicose Veins?denies.?Bruising?on aspirin, denies.?Bleeding problem?denies, denies.?Genitourinary:?Blood urine?denies, denies.?Frequent/Painfu/urination/bladder control?denies, denies.?Kidney stones?denies, denies.?Infection (UTI)?denies, denies.?Nephropathy?admits, denies.?sex trans dis (STD)?denies.?Prostate?denies.?Musculoskeletal:?Hammertoes?denies, denies.?Bunions?denies, denies.?Scoliosis/kyphosis?denies.?Back Pain?denies.?Muscle Cramps/ Resting?denies.?Muscle cramps / walking?denies, denies.?Generalized aches and pains?admits, denies.?Weakness?denies, denies.?Integ.:?White?denies, denies.?Scars?denies, denies.?Corns/calluses?denies, denies.?Ingrown nails?denies, denies.?Painful nails?denies, denies.?Open Sores?denies.?Rashes?denies, denies.?Neurologic:?Difficulty sleeping?denies, denies.?Bipolar?denies.?Brain disorder?denies, denies.?Numbness?admits.?Balance trouble?denies, denies.?Confusion?denies, denies.?Fainting/blackouts?denies, denies.?Headache?denies.?Tingling?admits.?Tremors?denies, denies.? * Medical History:? * Surgical History:?back surge ry left knee replacement right knee replacement cardiac catheterization coronary angiogram spinal stenosis surgery 2019bilateral TKR 2007-2008Stent * Hospitalization/Major Diagno stic Procedure:?Xray left Foot 03/04/2021MRI Left Foot 03/10/2021Injection, [facility] 07/06/2021Ultrasound Bilateral legs, angiogram Left leg 06/30/2021tent Left leg 08/09/2021tent Right leg 2Capsasin treatment x30 minutes/4x year 1st dosw 12/04/2021 * Family History:?Mother: dece ased, stroke, diagnosed with Unspecified essential hypertension, Unspecified heart disease, Family history of arthritis.?Father: , diagnosed with Unspecified cerebral artery occlusion with cerebral infarction.? * Social History:?Tobacco Use:?Tobacco Use/Smoking?Are you a:?former smoker ?Additional Findings: Tobacco Non-User?Current non-smoker ?Tobacco use other than smoking?Are you an other tobacco user??No ???Drugs/Alcohol:?Drugs?Have you used drugs other than those for medical reasons in the past 12 months??No ?Alcohol Screen?Did you have a drink containing alcohol in the past year??Yes ?Points?0 ?Interpretation?Negative ???Miscellaneous:?Caffeine: yes, frequency:, 1-2 cups per day. ?Children: yes. ?Exercise: yes. ?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: . 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 * Medications:?TakingEliquis C ardizem Acetaminophen-Codeine 300-30 MG Tablet 1 tablet as needed Orally every 6 hrs Aspirin 81 MG Tablet Chewable 1 tablet Orally Once a day Effexor EpiPen Folic Acid 1 MG Tablet 1 tablet Orally Once a day metFORMIN HCl ER 500 MG Tablet Extended Release 24 Hour 1 tablet with evening meal Orally twice a day Pravastatin Sodium 40 MG Tablet 1 tablet Orally Once a day Prednisone Tamsulosin HCl 0.4 MG Capsule 1 capsule Orally Once a day Vitamin D Extra Depth Diabetic Shoes with 3 Pair Custom heat-molded multi-density innersoles for 1 year Dx: Custom Orthotics as directed Taking Eliquis Taking Cardizem Taking Acetaminophen-Codeine 300-30 MG Tablet 1 tablet as needed Orally every 6 hrs Taking Aspirin 81 MG Tablet Chewable 1 tablet Orally Once a day Taking Effexor Taking EpiPen Taking Folic Acid 1 MG Tablet 1 tablet Orally Once a day Taking metFORMIN HCl ER 500 MG Tablet Extended Release 24 Hour 1 tablet with evening meal Orally twice a day Taking Pravastatin Sodium 40 MG Tablet 1 tablet Orally Once a day Taking Prednisone Taking Tamsulosin HCl 0.4 MG Capsule 1 capsule Orally Once a day Taking Vitamin D Taking Extra Depth Diabetic Shoes with 3 Pair Custom heat-molded multi-density innersoles for 1 year Dx: Taking Custom Orthotics as directed Not-Taking/PRNMagnesium 400 MG Tablet as directed Orally Methotrexate 2.5 MG Tablet as directed Orally Metoprolol Succinate ER Keflex 500 MG Capsule 1 capsule Orally every 12 hrs Cephalexin 500 MG Capsule 1 capsule Orally every 8 hrs Humira Pen 40 MG/0.4ML Pen-injector Kit as directed Subcutaneous Plavix Amoxicillin Venlafaxine HCl 75 MG Tablet 1 tablet with food Orally Once a day Ropinirole Hydrochloride Olopatadine HCl 0.1 % Solution 1 drop into affected eye Ophthalmic Twice a day Naloxone HCl 4 MG/0.1ML Liquid as directed Nasally Lidocaine-Prilocaine 2.5-2.5 % Cream as directed Externally Ketoconazole Hydrocortisone EPINEPHrine 0.3 MG/0.3ML Solution Prefilled Syringe as directed Injection Diclofenac Medication List reviewed and reconciled with the patientNot-Taking/PRN Magnesium 400 MG Tablet as directed Orally Not-Taking/PRN Methotrexate 2.5 MG Tablet as directed Orally Not-Taking/PRN Metoprolol Succinate ER Not-Taking/PRN Keflex 500 MG Capsule 1 capsule Orally every 12 hrs Not- Taking/PRN Cephalexin 500 MG Capsule 1 capsule Orally every 8 hrs Not-Taking/PRN Humira Pen 40 MG/0.4ML Pen-injector Kit as directed Subcutaneous Not-Taking/PRN Plavix Not-Taking/PRN Amoxicillin Not-Taking/PRN Venlafaxine HCl 75 MG Tablet 1 tablet with food Orally Once a day Not-Taking/PRN Ropinirole Hydrochloride Not-Taking/PRN Olopatadine HCl 0.1 % Solution 1 drop into affected eye Ophthalmic Twice a day Not-Taking/PRN Naloxone HCl 4 MG/0.1ML Liquid as directed Nasally Not-Taking/PRN Lidocaine-Prilocaine 2.5-2.5 % Cream as directed Externally Not-Taking/PRN Ketoconazole Not-Taking/PRN Hydrocortisone Not-Taking/PRN EPINEPHrine 0.3 MG/0.3ML Solution Prefilled Syringe as directed Injection Not-Taking/PRN Diclofenac Medication List reviewed and reconciled with the patient * Allergies:?Methadone: vomiti ngIbuprofen: anaphylaxisMotrin: anaphylaxisNSAIDs: anaphylaxis Objective: * Vitals:?Ht:5ft9in, Wt:280, B KY:41.34, Shoe size:12EE, BP:130/70mm Hg, BS:not taken, Ht-cm: 175.26 cm, Wt-k.01 kg. * ???Past Orders: ???Lab:HEMOGLOBIN A1C (GLYCO HEMOGLOBIN) (Order Date - 02/04/2024) (Collection Date & Time - 12/04/2023 11:27 AM) ? Value Reference Range ?TOTAL HEMOGLOBIN (HGBA1C) 5.4 * Examination: ???Ophthalmology Referral: ?DIABETES EYE EXAM?Dermatologic: ?ULCER:?LOCATION, dorsal proximal IPJ T1 SIZE, 20 mm X 10 mm X 3mm, BASE, fibrotic, RIM, hyperkeratotic, UNDERMINING, noneTRACKING, Sub Q with Fat layer exposed, DRAINAGE, serosanguineous, moderate, NECROTIC TISSUE, loosely-adherent, yellow slough, MALODOR, absent, CALOR, absent, ERYTHEMA, absent.?General Examination: ?GENERAL APPEARANCE:?pleasant, alert, well nourished, well developed, well hydrated, with good attention to hygene/body habitus, and in no acute distress.?ORIENTED:?person,place, and time.?Neurological: ?SENSORY:? Neurological exam demonstrates, reduced vibration sensation, 5.07 monofilament test performed at plantar aspects of 5 varied sites per foot shows sensation, reduced , at Forefoot, at Midfoot, B/L.?Vascular: ?AMPUTATION, NON-TRAUMATIC(A):?Hallux amputation, LEFT.?DP PULSES(B):? 0/4, B/L.?PT PULSES(B):? 0/4, B/L.?CAPILLARY FILL TIME:?3 secs. per digit, B/L.?TEMPERTURE GRADIENT(C):?normal, warm to cool, proximal to distal, B/L, B/L.?Orthopedic: ?MUSCLE STRENGTH:?5/5 all groups in a symmetrical fashion , B/L.?DIGITAL DEFORMITIES:?Digital contracture, PIPJ, 2,3 LEFT, incompl- reducible with WB, or to push-up test, no over, nor underlapping.? Assessment: * Assessment: 1.?Hammertoe of left foot - M20.42???Specify :Acute problem, Uncomplicated (3)???2.?Skin ulcer of toe of left foot with fat layer exposed - L97.522 (Primary)???Notes :Response to treatment Nonapplicable???3.?Type 2 diabetes mellitus with diabetic polyneuropathy - E11.42???4.?History of amputation - Z89.9???5.?Peripheral vascular disease of extremity - I73.9??? Plan: * Treatment: 2.?Others? Notes: Patient Educated with: WOUND CARE INSTRUCTIONS.pdf (WOUND CARE INSTRUCTIONS.pdf)?? * Procedures:?Debride skin and subQ:?Open wound?Physician of record performed open wound selective debridement of devitalized necrotic/nonviable soft tissue, fibrin, exudate, epidermis, dermis, thru skin and subcutaneous fat tissue, first 20 sq cm or less, using sharp dissection with sterile 15 blade, and/or tissue nippers. ANESTHESIA- was accomplished TOPICALLY with Lidocaine Hydrochloride Jelly 2 percent, Sterile antibiotic dressing applied. Hemostasis was controlled through direct pressure. Post debridement measurements: 22 mm x _12 mm x 3 mm. Character of the wound post debriement is stable (88765).? * Procedure Codes:?12215 DEBRI DE SKIN/TISSUE * Preventive Medicine:? ??Counseling:?Discussion:?-13: Office or other outpatient visit for the evaluation and management of an established patient, which required a medically appropriate history and/or examination and LOW level of DECISION MAKING for: 1 STABLE ACUTE UNCOMPLICATED PROBLEM, 2 OR MORE MINOR PROBLEMS, OR 1 STABLE CHRONIC PROBLEM, THAT POSE(S) A LOW RISK FOR MORBIDITY/MORTALITY. The visit on the day of the encounter encompassed interpreting the data and educating the patient as to the nature of their condition, treatment options available according to their individual PMH, meds, allergies, and overall health/living conditions, as well as any potential risks or complications that may occur from a failure to adhere to, and participate in, the recommended course of therapy. The discussion included a complete verbal, and/or written explanation of the examination results, any x-rays taken, the proposed diagnosis, and outline of the treatment plan. A schedule for future care needs was also explained. The patient verbalized an understanding of the instructions at this time and agreed to be an active participant in their treatment. If the patient should think of any questions or concerns after the visit, I have encouraged the patient to call the office.?Digital Surgery:?Digital surgery was discussed with the patient, including the risks of surgery(below), vs not having surgery (persistent pain, deformity, risk for skin ulceration/infection, loss of toe), the potential surg complications, the anesthesia, and the usual post-op course. No guarentees were given. We discussed the potential procedure complications including, but not limited to: pain, swelling, bleeding, scarring, numbness, infection, delayed/non healing, floppy/unstable/shorthened toe, recurrence, failure of the procedure, overcorrection leading to plantarflexed/downward positioned toe, recurrence, need for further surgery, as well as the possibility for loss of the toe itself. We discussed the use of local anesthesia, and the usual post-op course for healing. No guarentees were given. The patient verbally indicated a full understanding of the above conversation, and any other of their questions were answered to their satisfaction. Alternatives to the procedure were also discussed, including conservative care. I also discussed the usual post-operative course and gave no guarantees regarding outcome, We elected to try conservative treatment at the present time, due to the patients age, medical history, and circulatory constraints.?Digital Treatment:?HT- I explained to the patient the possible etiologies of Hammertoes, including genetics/foot type/shoegear/activity level/exercise routine and the risks/benefits of all the different treatment options for their pain including: No treatment at all, Rest, Ice, New/supportive/wider/deeper Shoegear, Digital Padding/Strapping/Taping/Bracing/Gel protective sleeves, Foot/Ankle AFO Bracing, Stretching exercises, Deep Tissue Massage, Arch support/shoe inserts with splay metatarsal padding, and Custom orthoses. I insisted that any digital devices be removed daily and not worn overnight for safety. The patient is to carefully examine the toes daily for any skin irritation while using any splinting or padding device. The advantages and disadvantages of each option were discussed and the patients questions re: shoegear, padding, custom vs prefabricated inserts, activity level, and consistency in home treatment regimens for optimal success were answered to their verbally confirmed satisfaction.?Podiatric Counseling:?Discussed with patient and that patient might benefit from flexor tenotomy to reduce some of the stress on his proximal IPJ, T1. Discussed that due to patient tenuous blood supply and wound care under vascular instruction with hallux incision- would like to discuss with patient Vascular Surgeon. Reached out to patient vascular surgeon for notes. Tentative plan to proceed with Flexor tenotomy next visit pending conversation with vascular surgeon, Dr. Palacios.?Ulcer:?A detailed plan of care was reviewed with the patient. We emphasized the fact that the patient takes on an active participating role in the treatment process and emphasized to them that they are an included, valued, and important member of the wound healing team in order to reach an expedient successful outcome. The patient agreed to follow their medically recommended diet while increasing their protein intake if safely able to do so, maintain proper bodily hydaration, abide by weight-bearing restrictions at all times, quit all current smoking habits if any, and diligently follow any/all dressing change instructions. It was clearly made known to the patient that if they fail to do their part, they will likely extend their course of treatment as well as possibly increase their risk of adverse events including amputation. The patient was instructed on importance of proper wound care consisting of pressure reduction, and proper maintainance of a moist wound environment. The patient is to cleanse the wound with wound cleanser BID based on product availability. The patient is to apply Medihoney to the wound and cover with a DSD as directed. The patient was instructed to change dressings according to orders, or PRN saturation, leaks. The patient was instructed to monitor and report any signs or symptoms of infection or any untoward reactions. Precautions Taken: Offloading/Pressure reduction via rest/ limited activity to essential to daily life only, cane, offloading surgical shoe, accommodative padding, sharp debridement, and take/apply medication as directed. THE GOALS of wound debridement to remove devitilized tissue, decrease risk for infection, promote wound healing and prevent further complication were discussed/reviewed. Debridement frequency as indicated.? * Follow Up:?1 Week * Images: * Sign off status: Completed true * Provider:Kika Garcia DPM Date:?04/06/2023 Generated for Merrick alvarado/Pepe/Jasmeet on:?02/18/2024 03:11 PM EST History and Physical Notes * HPI (History of Present Illness) Category Sub-Category Detail Notes Category Not es Toe pain Nature: deformity, hamme ring of second and third toe following hallux amputation Duration: several weeks Course: worse Skin problems Duration: several weeks Treatments: Local care consistin g of daily distilled water wound cleanse, topical antibiotic as recommended, application of sterile dressing, offloading/pressure reduction via rest, shoe modification, insert modification, accommodative padding, assisted ambulation via cane/ crutch/ walker/ wheel chair/ knee scooter, and surgical debridement, , states adherence to recommended treatment application Examination Category Sub-Category Detail Notes Category Not es Neurological SENSORY: Neurological exa m demonstrates, reduced vibration sensation, 5.07 monofilament test performed at plantar aspects of 5 varied sites per foot shows sensation, reduced , at Forefoot, at Midfoot, B/L Dermatologic ULCER: LOCATION, dorsal proximal IPJ T1 SIZE, 20 mm X 10 mm X 3mm, BASE, fibrotic, RIM, hyperkeratotic, UNDERMINING, noneTRACKING, Sub Q with Fat layer exposed, DRAINAGE, serosanguineous, moderate, NECROTIC TISSUE, loosely-adherent, yellow slough, MALODOR, absent, CALOR, absent, ERYTHEMA, absent Orthopedic DIGITAL DEFORMITIES: Digital con tracture, PIPJ, 2,3 LEFT, incompl-reducible with WB, or to push-up test, no over, nor underlapping MUSCLE STRENGTH: 5/5 all groups in a symmetrical fashion , B/L General Examination GENERAL APPEARANCE: pleasant , alert, well nourished, well developed, well hydrated, with good attention to hygene/body habitus, and in no acute distress ORIENTED: person,place, and ti me Ophthalmology Referral DIABETES EYE EXAM Procedure Perform ed:: No Findings of Diabetic Eye Exam:: no retin opathy Vascular DP PULSES(B): 0/4, B/L PT PULSES(B): 0/4, B/L CAPILLARY FILL TIME: 3 secs. per digit, B/L TEMPERTURE GRADIENT(C): normal, warm to cool, proximal to distal, B/L, B/L AMPUTATION, NON-TRAUMATIC(A): Hallux amp utation, LEFT
--- OUTSIDE RECORDS SUMMARY | 2024-02-18 15:11 | XMS_ITS ---
Author Organization [facility] Address [address] [place] [address] Care Team Providers Care Distribution Manager Name Role Phone Jas Stone Primary Care Provider Unav ailable Bryanna Garcia Unavailable [phone] REASON FOR VISIT [facility] Encounters Encounter Location Date Provider Diagnosis [address] [address] 02/04/2024 Bryanna Garcia Plan Of Treatment Next Appt Details Provider Name:Bryanna sosa, 02/20/2024 11:45:00 AM, [address] [place], [address], Progress Notes * Lino OLIVEIRA KDOB: [birth year] (68 yo M)Acc No.[id number]:02/04/2024 Patient:?Lino OLIVEIRA :1955???Age:68 Y???Sex:Male Address:[address] [place] [address], [facility] [place], [address] * true * Date:? Generated for Printi ng/Faharvinderg/eTransmitting on:?02/18/2024 03:10 PM EST
--- OUTSIDE RECORDS SUMMARY | 2024-02-18 15:11 | XMS_ITS ---
Author Organization [facility] Address [address] [facility] [place] [address] Care Team Providers Care Section Beamer Name Role Phone Jas Stone Primary Care Provider Unav Bryanna Chavarria Unavailable [phone] Allergies Allergen (clinical drug ingredient) Drug/Non Drug Allergy documented on EMR Reaction Allergy Type Onset Date Status Motrin anaphylaxis Drug Allergy Activ e ibuprofen Ibuprofen anaphylaxis Drug Allergy Activ e methadone Methadone vomiting Drug Allergy Active Non-steroidal anti-inflammatory agent (FN) NSAIDs anaphylaxis Drug Allergy Active REASON FOR VISIT Painful Toe, Open sore - Toe Medications Medication SIG (Take, Route, Frequency, Duration) Notes Start Date End Date Status Diclofenac Not-Takin g EPINEPHrine 0.3 MG/0.3ML as directed Injection Not-Taking Hydrocortisone Not-T aking Ketoconazole Not-Dipesh ing Lidocaine-Prilocaine 2.5-2.5 % as directed Externally Not-T aking Ropinirole Hydrochloride Not-Taking Venlafaxine HCl 75 MG 1 tablet with food Orally Once a day for 30 day(s) Not-Taking Amoxicillin Not-Taki ng Naloxone HCl 4 MG/0.1ML as directed Nasally Not-Taking Olopatadine HCl 0.1 % 1 drop into affect ed eye Ophthalmic Twice a day Not-Taking Plavix Not-Taking Humira Pen 40 MG/0.4ML as directed Subcutaneous Not-Taking Cephalexin 500 MG 1 capsule Orally neil ry 8 hrs for 10 days Not-Taking Keflex 500 MG 1 capsule Orally neil ry 12 hrs for 10 day(s) 10/24/2023 Not-Taking Metoprolol Succinate ER Not-Taking Extra Depth Diabetic Shoes with 3 Pair Custom heat-molded multi-density innersoles for 1 year Dx: 12/13/2021 Active Vitamin D Active Methotrexate 2.5 MG as directed Orally Not-Taking Magnesium 400 MG as directed Orally Not-Taking Custom Orthotics as directed A ctive Prednisone Active Pravastatin Sodium 40 MG 1 tablet Orally Once a day for 30 day(s) Active metFORMIN HCl ER 500 MG 1 tablet with ev ening meal Orally twice a day Active Folic Acid 1 MG 1 tablet Orally Once a day for 30 day(s) Active Tamsulosin HCl 0.4 MG 1 capsule Orally O nce a day for 30 day(s) Active Cardizem Active EpiPen Active Effexor Active Aspirin 81 MG 1 tablet Orally Once a day for 30 day(s) Active Acetaminophen-Codeine 300-30 MG 1 tablet as needed Orally every 6 hrs Active Eliquis Active Social History Tobacco Use: Social History [...] Problem Status W/U Status Risk Notes Problem Acquired hammer toe of right foot (4699840106097 105) Hammer toe of right foot (M20.41) Active confirmed Problem Acquired hammer toe of left foot (5671029531257 103) Hammer toe of left foot (M20.42) Active confirmed Vital Signs Blood pressure systolic 130 mm Hg 02/11/20 24 Blood pressure diastolic 70 mm Hg 024 Height 5ft9in in 02/11/2024 Weight 280 lbs 02/11/2024 BMI 41.34 kg/m2 02/11/2024 Procedures Procedure Date Ordered Date Performed Result Body Sit e 73289-HKEPGXP SKIN/TISSUE 02/11/2024 N/A 65215 - Tenotomy, open flexor 02/11/2024 N/A Encounters Encounter Location Date Provider Diagnosis [facility] [place] [address] [place] [address] 02/11/2024 Bryanna Garcia Hammer toe of left foot M20.42 ; Skin ulcer of toe of left foot with fat layer exposed L97.522 ; Type 2 diabetes mellitus with diabetic polyneuropathy E11.42 ; History of amputation Z89.9 and Peripheral vascular disease of extremity I73.9 Assessments Encounter Date Diagnosis (ICD Code) Assessment Notes Treatment Notes Treatment Clinical Notes Section Notes 02/11/2024 Hammer toe of left foot (ICD-10 - M20.42) 02/11/2024 Skin ulcer of toe of left foot with fat layer exposed (ICD-10 - L97.522) Response to treatment Unchanged Patient Educated with: WOUND CARE INSTRUCTIONS. pdf (WOUND CARE INSTRUCTIONS. pdf) 02/11/2024 Type 2 diabetes mellitus with diabetic polyneuropathy (ICD-10 - E11.42) 02/11/2024 History of amputation (ICD-10 - Z89.9) 02/11/2024 Peripheral vascular disease of extremity (ICD-10 - I73.9) Plan Of Treatment Treatment Notes Assessment Notes Skin ulcer of toe of left fo ot with fat layer exposed Patient Educated with: WOUND CARE INSTRUCTIONS.pdf (WOUND CARE INSTRUCTIONS.pdf) Pending Test Test Name Order Date [id number] SKIN/TISSUE 02/11/2024 34125 - Tenotomy, open flexor 02/11/2024 Next Appt Details Follow Up: 1 Week, Reason: Provider Name:Bryanna sosa, 02/20/2024 11:45:00 AM, [address] [place] [address], [id number], Procedure Notes * Category Sub-Category Detail Notes Podiatry Procedure Tenotomy - Flexor (88049) LOC ATION : T1 INDICATIONS : a painful non-rigid toe contrature at the PIPJ/DIPJ, Resistant to previous conservative treatment, ANESTHESIA : 3cc of 2 percent Lidocaine/Epi 1:200,000 local anesthesic utilizing aseptic technique administered to each involved toe, PREP : The incision site was made surgically clean by applying betadine to the involved area, PROCEDURE : Once anesthesia was achieved, an incision was made at the flexor crease of the interphalangeal joint. The tendon was then transected in a medial to lateral sweeping motion. Any contracted plantar joint capsule was released as well. Steri-strips and a sterile bandage were applied while splinting the toe in a rectus/corrected position, DISPOSITION : The patient tolerated the procedure and anesthesia well, and left the exam room awake, alert, and stable. The patient was instructed to take Tylenol or Motrin for discomfort, rest, ice for 10-15 minutes per hour, elevate the foot, and walk minimally until the next office visit. A surgical shoe was dispensed for ambulation. The patient is to maintain a clean surgical site, keeping it dry until the next visit. Patient was advised this is an attempt a limb salvage to reduce the stress at the proximal IPJ of the second digit. He is aware he is at a risk for limb loss Debride skin and subQ Open wound Physician [...] of the wound post debriement is stable (07594) Progress Notes * Lino OLIVEIRA KDOB: [birth year] (68 yo M)Acc No.[id number]:02/11/2024 Progress Notes Patient:?Lino OLIVEIRA Provider:?Bryanna Garcia DPM :1955???Age:68 Y???Sex:Male Wei e:02/11/2024 Address:[address] [place], [place] [address] Pcp:LADONNA Arreola Subjective: * Chief Complaints: * ???Painful ToeOpen sore - To e * HPI: ???Skin problems:?Duration:?several weeks.?Treatments:?Local care consisting [...] ?Exercise: yes. ?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: . 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 * Medications:?TakingEliquis C ardizem Acetaminophen-Codeine 300-30 [...] patient * Allergies:?Methadone: vomiti ngIbuprofen: anaphylaxisMotrin: anaphylaxisNSAIDs: anaphylaxisyes[Allergies Verified] Objective: * Vitals:?Ht:5ft9in, Wt:280, B NC:41.34, Shoe size:12EE, BP:130/70mm Hg, Ht-cm: 175.26 cm, Wt-k.01 kg. * ???Past [...] no over, nor underlapping.? Assessment: * Assessment: 1.?Hammer toe of left foot - M20.42???2.?Skin ulcer of toe of left foot with fat layer exposed - L97.522 (Primary)???Notes :Response to treatment Unchanged???3.?Type 2 diabetes mellitus with diabetic polyneuropathy - E11.42???4.?History of amputation - Z89.9???5.?Peripheral vascular disease of extremity - I73.9??? Plan: * Treatment: 2.?Hammer toe of left foot?Procedure: 64625 - Tenotomy, open flexor * Procedures:?Debride skin and subQ:?Open wound?Physician of [...] of the wound post debriement is stable (23986).?Podiatry Procedure:?Tenotomy - Flexor (73836)?LOCATION : T1 INDICATIONS : a painful non-rigid toe contrature at the PIPJ/DIPJ, Resistant to previous conservative treatment, ANESTHESIA : 3cc of 2 percent Lidocaine/Epi 1:200,000 local anesthesic utilizing aseptic technique administered to each involved toe, PREP : The incision site was made surgically clean by applying betadine to the involved area, PROCEDURE : Once anesthesia was achieved, an incision was made at the flexor crease of the interphalangeal joint. The tendon was then transected in a medial to lateral sweeping motion. Any contracted plantar joint capsule was released as well. Steri-strips and a sterile bandage were applied while splinting the toe in a rectus/corrected position, DISPOSITION : The patient tolerated the procedure and anesthesia well, and left the exam room awake, alert, and stable. The patient was instructed to take Tylenol or Motrin for discomfort, rest, ice for 10-15 minutes per hour, elevate the foot, and walk minimally until the next office visit. A surgical shoe was dispensed for ambulation. The patient is to maintain a clean surgical site, keeping it dry until the next visit. Patient was advised this is an attempt a limb salvage to reduce the stress at the proximal IPJ of the second digit. He is aware he is at a risk for limb loss.? * Procedure Codes:?19810 INCIS ION OF FOOT TENDON(S), Modifiers: XS 66675 DEBRIDE SKIN/TISSUE, Modifiers: XS * Preventive Medicine:? ??Counseling:?Discussion:?Vascular office notes were obtained from Dr. Palacios, and reviewed with patient. Patient has monophasic Dorsalis Pedis to left foot and multiphasic Posterior Tibial pulse to left foot. Patient was advised he does remain at a significant risk of toe loss given circulatory restraints and uncontrolled Type II DM..?Digital Surgery:?FLEXOR : Minimal Incision digital procedure consisting of Percutaneous Flexor Release was discussed with the patient, including the risks of the procedure vs and not having the procedure, the potential procedure complications, the anesthesia, and the usual post-op course. No guarentees were given. We discussed with the patient the complications such as delayed/non healing, excessive scarring, excessive swelling, failure of procedure, floppy toe, infection, numbness, chronic pain, recurrence of the condition, shortened toe, joint stiffness, and possible loss of limb/life. Alternatives to the procedure were also discussed, including conservative care, The patient would like to procede with surgical treatment.? * Follow Up:?1 Week * Images: * Sign off status: Completed true * Provider:?Bryanna Garcia DPM Date:?04/13/2023 Generated for Merrick alvarado/Pepe/Onelitting on:?02/18/2024 03:10 PM EST History and Physical Notes * [...]
[2024-02-18 15:17] VITALS: BP 128/68; PULSE 88; BMI 41.7
--- NOTE | 2024-02-18 15:17 | A.OFFVIS_ITS ---
Vital Signs 02/18/24 15:17 Height 5 ft 9 in Weight 282 lb 3.067 oz BMI 41.7 BP 128/68 Blood Pressure Location Lt brachial Position Sitting Pulse 88 Pulse Source Pulse Oximeter Intake Visit Reasons: 6m follow up/dc [facility] Allergies NSAIDS (Non-Steroidal Anti-Inflamma Allergy (Severe, Verified 02/04/24 10:01) Anaphylaxis methadone Allergy (Intermediate, Verified 02/04/24 10:01) Vomiting Medication List - Last Reconciled 02/18/24 by Ari Orta MD acetaminophen-codeine 300-30 mg 1 tab PO BID PRN 30 days apixaban (Eliquis) 5 mg PO BID aspirin 81 mg PO DAILY blood sugar diagnostic (FreeStyle Test strips) Test blood sugar once a day cholecalciferol (vitamin D3) 50 mcg PO DAILY 90 days CPAP Machine/Device (CPAP) use daily NS [Diabetic shoes with 3 pair of custom orthotics wear daily] diclofenac sodium 1% 4 grams topical QID PRN 30 days diltiazem HCl ER 120 mg PO BID epinephrine (EpiPen) 0.3 mg (0.3 mL) IM Q10M PRN ketoconazole 2% 1 appl topical 2XW metformin ER 500 mg PO DAILY 90 days oxybutynin chloride ER 10 mg PO DAILY 90 days pravastatin 40 mg PO DAILY prednisone 10 mg PO DAILY ropinirole 1 mg PO BEDTIME PRN semaglutide (Ozempic) 0.5 mg subcut SA tamsulosin 0.4 mg PO DAILY venlafaxine ER 150 mg PO DAILY 90 days HPI Comments Details: Lino is here for follow-up regarding coronary artery disease. He has morbid obesity, polymyalgia rheumatica, rheumatoid arthritis on chronic steroids. In the past, he underwent cardiac workup due to shortness of breath. He had nonobstructive disease in the LAD which is being treated medically. Recently, hospitalized with complaints of shortness of breath. Prior to that, he had had vascular surgery in [facility]. Per discharge summary, claudications/left great toe gangrene for which she underwent left-sided femoral endarterectomy/great toe amputation. Any case, no clear findings during hospitalization to explain the shortness of breath. Thought to be possibly from deconditioning after recent surgery. Towards the later part of hospital stay he was also found to be in atrial fibrillation which was new diagnosis. However, would not feel that this was actually causing him shortness of breath as he was clearly in sinus rhythm upon admission. Any case, he states that he actually feels great currently. His shortness of breath is essentially resolved which makes me again believe that the initial issue was mostly deconditioning after major vascular surgery. No other cardiac symptoms at this time. It does not really feel any palpitations from the atrial fibrillation either. He has completed a Holter monitor. 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 Seronegative rheumatoid arthritis Obesity (BMI 30-39.9) Vitamin D deficiency Diabetes type 2, controlled Osteopenia Adrenal 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 Painful total knee replacement, right Surgical History Status post amputation History of endarterectomy History of esophagogastroduodenoscopy (EGD) H/O colonoscopy Hx of coronary angiogram History of back surgery (~2017) History of knee replacement procedure of right knee History of knee replacement procedure of left knee Hx of cardiac cath Family History Father Angina pectoris Mother Stroke Social History Household Members: Spouse Housing: House Are you a primary multi care technician to a significant other at home: No Do you presently have visiting nurse or other home services: No 75 years or older and lives alone: No Alcohol intake: former Year quit: 2023 Patient Tobacco Use Status: Former Tobacco user Years Smoked: 20 years ago e-Cigarette/Vaping Use: Never Used Second Hand Smoke Exposure: No Substance Use Type: Marijuana service: No Current occupational status: retired Cognitive needs: No Hearing needs: No Vision needs: No Review of Systems Const Denies weakness ENT Denies dizziness Card Denies chest pain, Denies chest pain with activity, Denies syncope, Denies rapid heart rate, Denies pedal edema, Denies edema, Denies leg edema, Denies lightheadedness, Denies palpitations, Denies dyspnea, Denies dyspnea on exertion and Denies orthopnea Resp Denies cough, Denies dyspnea and Denies dyspnea on exertion GI Denies hematochezia and Denies change in stool character Musc Denies abnormal gait, Denies muscle cramps, Denies muscle weakness, Denies numbness, Denies radiating pain into limb and Denies tingling Neuro Denies abnormal gait, Denies dizziness, Denies syncope, Denies numbness, Denies tingling and Denies weakness Endo Denies palpitations Physical Exam Vital Signs: Last Vital Signs Pulse 88 02/18/24 15:17 BP 128/68 02/18/24 15:17 BMI result Body Mass Index 41.7 Const General: comfortable and no acute distress Orientation/consciousness: patient oriented x3 HEENT Other: Unremarkable Head: Yes normal to inspection Neck Neck: Yes normal visual inspection Chest Chest palpation & inspection: normal inspection of the chest Resp Auscultation: clear to auscultation bilaterally Cardio Palpation: normal PMI Heart sounds: S1 normal heart sound present, S2 normal heart sound present, no gallops, no murmurs and no rubs GI Palpation (GI): Soft to palpation Back/Spine/Pelvis Other: unremarkable Skin General skin exam: no rashes or lesions noted Neuro General: patient oriented x3 Extrem General: Yes normal to inspection Psych Mental Status: mental status grossly normal Assessment & Plan Assessment & Plan (1) Atherosclerotic cardiovascular disease: Comment: follows with [facility] Code(s): I25.10 - Atherosclerotic heart disease of [place] coronary artery without angina pectoris Category: Medical Plan: Cardiac catheterization from 2019 showed 50% stenosis in the mid LAD, but IFR itself was not significant. Minor irregularities in the circumflex and right coronary arteries and left main was normal. Unremarkable perfusion imaging from 02/2023. Clinically, no overt symptoms. Mainly risk factor modification. Continue statins. He is only on low dose of Pravastatin as he cannot take high dose Atorvastatin. Acceptable lipids. (2) PAF (paroxysmal atrial fibrillation): Code(s): I48.0 - Paroxysmal atrial fibrillation Category: Medical Plan: History of frequent PACs. Atrial fibrillation noted during recent hospitalization. In the Holter monitor, he does have intermittent atrial fi brillation but not high burden. Continue diltiazem/anticoagulation. He does not have any clear symptoms from this. (3) Morbid obesity: Code(s): E66.01 - Morbid (severe) obesity due to excess calories Category: Medical Plan: Long-term issue and not clear how much can change. (4) Ascending aorta enlargement: Code(s): I77.89 - Other specified disorders of arteries and arterioles Category: Medical Plan: Ascending aortic size 4 cm on echocardiogram. Prior to this, 4.4 cm. We can follow this on echocardiogram. Plan Discussed with significant other. Orders: Orders ECG 3 day holter monitor 6 Months I48.0 - Paroxysmal atrial fibrillation Coding Level of Care Code Est Pt Level 4 (79768) Diagnoses Atherosclerotic cardiovascular disease I25.10 PAF (paroxysmal atrial fibrillation) I48.0 Morbid obesity E66.01 Ascending aorta enlargement I77.89
== END 2024-02-18 15:38 | disposition home or self-care (01) ==
PROVIDERS: PCP Nurse Practitioner Family; Visit Provider Internal Medicine
DX: I25.10 Atherosclerotic heart disease of native coronary artery without angina pectoris (principal); I48.0 Paroxysmal atrial fibrillation; E66.01 Morbid (severe) obesity due to excess calories; I77.89 Other specified disorders of arteries and arterioles
CPT/HCPCS: 99214

== ENCOUNTER → 2024-02-18 15:09 | Outpatient (BNVA) | payer OTHER, SELFPAY | PROVIDERS: PCP Nurse Practitioner Family; Visit Provider Internal Medicine | DX: I25.10 Atherosclerotic heart disease of native coronary artery without angina pectoris (principal); I48.0 Paroxysmal atrial fibrillation; E66.01 Morbid (severe) obesity due to excess calories; I77.89 Other specified disorders of arteries and arterioles; Z68.41 Body mass index [BMI] 40.0-44.9, adult | CPT/HCPCS: 99212 ==

== ENCOUNTER 2024-03-18 10:59 | Outpatient (AMB) | payer MEDICARE, SELFPAY ==
--- NOTE | 2024-03-18 11:11 | MHC.OFFVIS ---
Intake Visit Reasons: 6M PSA/PVR(set) Intake Note: Patient is present for 6M PSA/PVR Urology Medication:TAMSULOSIN Antibiotic Allergy:NONE Blood Thinner:ASPIRIN,APIXABAN Last PVR:0ML'S Todays PVR:0ML'S Chicken Stuffer Required: No Allergies NSAIDS (Non-Steroidal Anti-Inflamma Allergy (Severe, Verified 03/18/24 11:12) Anaphylaxis methadone Allergy (Intermediate, Verified 03/18/24 11:12) Vomiting HPI Comments Details: Lino is a pleasant male. He is a patient of Dr. Beck. He seen for the following urologic conditions - lower urinary tract symptoms - detrusor hyperactivity Six-month follow-up PVR 0 cc Good response to combination oxybutynin tamsulosin and bethanechol Happy with current emptying, only waking once at night Background diabetes developed secondary to prednisone for p.m. UA leukocyte positive 12 month follow-up Lower urinary tract symptoms Good response to urgency with oxybutynin Detrusor hyperactivity with impaired contractility - good stabilization with oxybutynin, and bethanechol Cystoscopy 10/2523 grade 2 trabeculation - incomplete bowel emptying PFSH Medical History Amputation of left great toe Cellulitis Dry gangrene Spinal cord stimulator status Polymyalgia rheumatica PAD (peripheral artery disease) Ascending aorta dilatation Sleep apnea Type 2 diabetes mellitus with peripheral neuropathy Diabetes mellitus due to underlying condition with diabetic neuropathy, without long-term current use of insulin Arterial insufficiency Iatrogenic [place]'s disease Morbid obesity Atherosclerotic cardiovascular disease Diabetic neuropathy associated with type 2 diabetes mellitus half-way methotrexate user Seronegative rheumatoid arthritis Obesity (BMI 30-39.9) Vitamin D deficiency Diabetes type 2, controlled Osteopenia Adrenal 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 Painful total knee replacement, right Surgical History Status post amputation History of endarterectomy History of esophagogastroduodenoscopy (EGD) H/O colonoscopy Hx of coronary angiogram History of back surgery (~2017) History of knee replacement procedure of right knee History of knee replacement procedure of left knee Hx of cardiac cath Family History Father Angina pectoris Mother Stroke Social History Household Members: Spouse Housing: House Are you a primary care transitions nurse to a significant other at home: No Do you presently have visiting nurse or other home services: No 75 years or older and lives alone: No Alcohol intake: former Year quit: 2023 Patient Tobacco Use Status: Former Tobacco user Years Smoked: 20 years ago e-Cigarette/Vaping Use: Never Used Second Hand Smoke Exposure: No Substance Use Type: Marijuana service: No Current occupational status: retired Cognitive needs: No Hearing needs: No Vision needs: No Review of Systems Const Denies chills and Denies fever(s) Card Reports no additional complaints and Denies syncope Resp Denies cough GI Denies abdominal pain and Denies heartburn Reports as per HPI and Denies change in libido Neuro Denies syncope Psych Denies change in libido Endo Denies change in libido Physical Exam Const General: cooperative, healthy appearing, comfortable and no acute distress Orientation/consciousness: patient oriented x3 HEENT Face and sinus: Yes normal facial exam Mouth: moist mucous membranes Neck Neck: Yes normal visual inspection, Yes full ROM and Yes trachea midline Chest Chest palpation & inspection: normal inspection of the chest Resp Effort & Inspection: normal respiratory effort, able to speak in complete sentences and no respiratory distress GI Inspection: Yes normal to inspection Back/Spine/Pelvis Cervical Spine: normal cervical lordosis Thoracic/Lumbar Spine: thoracic and lumbar spine normal to inspection Skin General skin exam: no rashes or lesions noted Neuro General: patient oriented x3, gait normal, tone normal and moves all extremities Extrem General: Yes normal to inspection and Yes capillary refill normal Office Procedures Post Void Residual Post Residual Void Post Void Residual (PVR): 0 [id number]-[id number] Void Residual by ultrasound Results AMB Urinalysis, Automated UA Leukoctes 125 Eddie/uL Last Edit by PHILLIP Colvin on 03/18/24 11:29 UA Nitrite Negative Last Edit by PHILLIP Colvin on 03/18/24 11:29 UA Urobilinogen 0.2 mg/dL Last Edit by PHILLIP Colvin on 03/18/24 11:29 UA Protein 0 mg/dL Last Edit by PHILLIP Colvin on 03/18/24 11:29 UA pH 7.5 Last Edit by PHILLIP Colvin on 03/18/24 11:29 UA Blood 0 Jason/uL Last Edit by PHILLIP Colvin on 03/18/24 11:29 UA Specific [place] 1.015 Last Edit by PHILLIP Colvin on 03/18/24 11:29 UA Ketone Negative Last Edit by PHILLIP Colvin on 03/18/24 11:29 UA Bilirubin 0 mg/dL Last Edit by PHILLIP Colvin on 03/18/24 11:29 UA Glucose 0 mg/dL Last Edit by PHILLIP Colvin on 03/18/24 11:29 Results Reviewed Results Reviewed: Laboratory Last Values Urine pH (Auto) 7.5 03/18/24 11:29 Specific [place] (Auto) 1.015 03/18/24 11:29 Urine Protein (Auto) 0 mg/dL 03/18/24 11:29 Glucose (UA)(Auto) 0 mg/dL 03/18/24 11:29 Urine Ketones (Auto) Negative 03/18/24 11:29 Urine Blood (Auto) 0 Jason/uL 03/18/24 11:29 Urine Nitrite (Auto) Negative 03/18/24 11:29 Urine Bilirubin (Auto) 0 mg/dL 03/18/24 11:29 Urine Urobilinogen (Auto) 0.2 mg/dL 03/18/24 11:29 Leukocyte Esterase (Auto) 125 Eddie/uL 03/18/24 11:29 Assessment & Plan Assessment & Plan (1) Kidney stone on left side: Code(s): N20.0 - Calculus of kidney Category: Medical (2) OAB (overactive bladder): Code(s): N32.81 - Overactive bladder Category: Medical (3) BPH loc w urin obs/LUTS: Code(s): N40.1 - Benign prostatic hyperplasia with lower urinary tract symptoms Category: Medical Plan Twelve month follow-up Orders: Orders AMB Urinalysis Automated Today Z13.9 - Encounter for screening, unspecified Prostate Specific Antigen 364 Days N40.1 - Benign prostatic hyperplasia with lower urinary tract symptoms Patient Instructions: Imaging studies, laboratory and physical exam results were discussed and reviewed in detail. No major barriers to patient understanding were identified. An opportunity to ask questions regarding the treatment plan was provided. All questions were answered. The patient expressed understanding and agreement with the above treatment plan. The patient is aware they should contact our office by phone for worsening of their current condition or the appearance of new urologic symptoms. Compliance is encouraged with any medications and followup testing that is ordered. It is a privilege to participate in the urologic care of your patient. If you have any questions or concerns regarding treatment for the above conditions, or other urologic issues, please do not hesitate to contact me. The office telephone contact is [phone]. This note is constructed using voice recognition software. While every effort has been made to ensure accuracy building energy retrofit technician errors may have been included. Yours sincerely, Dr Bishop Uribe MD, [facility] - Urology Providers of Expert, Compassionate Care for the Genitourinary System Coding Level of Care Code Est Pt Level 3 (42526) Diagnoses Kidney stone on left side N20.0 OAB (overactive bladder) N32.81 BPH loc w urin obs/LUTS N40.1 CPT Codes Post Residual Void - PVR CPT Code: 88516-Adlg Void Residual by ultrasound ([id number])
--- OUTSIDE RECORDS SUMMARY | 2024-03-18 13:05 | XMS_ITS ---
Author Organization [facility] Address [address] [place] [address] Care Team Providers Care Transplanter Orchid Name Role Phone Jas Stone Primary Care Provider Unav Bryanna Cahvarria Unavailable [phone] Allergies Allergen (clinical drug ingredient) Drug/Non Drug [...] Duration) Notes Start Date End Date Status Ropinirole Hydrochloride Not-Taking Olopatadine HCl 0.1 % 1 drop into affect ed eye Ophthalmic Twice a day Not-Taking Amoxicillin Not-Taki ng Venlafaxine HCl 75 MG 1 tablet with food Orally Once a day for 30 day(s) Not-Taking Naloxone HCl 4 MG/0.1ML as directed Nasally Not-Taking Metoprolol Succinate ER Not-Taking Keflex 500 MG 1 capsule Orally neil ry 12 hrs for 10 day(s) 10/24/2023 Not-Taking Cephalexin 500 MG 1 capsule Orally neil ry 8 hrs for 10 days Not-Taking Humira Pen 40 MG/0.4ML as directed Subcutaneous Not-Taking Plavix Not-Taking Extra Depth Diabetic Shoes with 3 Pair Custom heat-molded multi-density innersoles for 1 year Dx: 12/13/2021 Active Custom Orthotics as directed A ctive Vitamin D Active Magnesium 400 MG as directed Orally Not-Taking Methotrexate 2.5 MG as directed Orally Not-Taking Tamsulosin HCl 0.4 MG 1 capsule Orally O nce a day for 30 day(s) Active Folic Acid 1 MG 1 tablet Orally Once a day for 30 day(s) Active metFORMIN HCl ER 500 MG 1 tablet with ev ening meal Orally twice a day Active Pravastatin Sodium 40 MG 1 tablet Orally Once a day for 30 day(s) Active Prednisone Active Cardizem Active Acetaminophen-Codeine 300-30 MG 1 tablet as needed Orally every 6 hrs Active EpiPen Active Aspirin 81 MG 1 tablet Orally Once a day for 30 day(s) Active Effexor Active Eliquis Active Ketoconazole Not-Dipesh ing Hydrocortisone Not-T aking Diclofenac Not-Takin g EPINEPHrine 0.3 MG/0.3ML as directed Injection Not-Taking Lidocaine-Prilocaine 2.5-2.5 % as directed Externally Not-T aking Social History Tobacco Use: Social History Observation Description Date Details (start date - stop date) Never Smoker NA - NA Alcohol Screen Question Answer Notes Did you have a drink containing alcohol in the p ast year? Yes Points 0 Interpretation Negative Tobacco use other than smoking: Question Answer Notes Are you an other tobacco user? No Tobacco Control (Standard) Question Answer Notes Tobacco use: Nonsmoker Vital Signs Height 5ft9in in 03/17/2024 Weight 273 lbs 03/17/2024 BMI 40.31 kg/m2 03/17/2024 Blood pressure systolic 120 mm Hg 03/17/19 25 Blood pressure diastolic 81 mm Hg 025 Procedures Procedure Date Ordered Date Performed Result Body Sit e 05795-EHHJPOO SKIN/TISSUE 03/17/2024 N/A Encounters Encounter Location Date Provider Diagnosis [facility] [address] [place] [address] 03/17/2024 Bryanna Garcia Skin ulcer of toe of left foot with fat layer exposed L97.522 ; Type 2 diabetes mellitus with diabetic polyneuropathy E11.42 ; History of amputation Z89.9 ; Peripheral vascular disease of extremity I73.9 and Subacute osteomyelitis of left foot M86.272 Assessments Encounter Date Diagnosis (ICD Code) Assessment Notes Treatment Notes Treatment Clinical Notes Section Notes 03/17/2024 Skin ulcer of toe of left foot with fat layer exposed (ICD-10 - L97.522) Response to treatment Unchanged 03/17/2024 Type 2 diabetes mellitus with diabetic polyneuropathy (ICD-10 - E11.42) 03/17/2024 History of amputation (ICD-10 - Z89.9) 03/17/2024 Peripheral vascular disease of extremity (ICD-10 - I73.9) 03/17/2024 Subacute osteomyelitis of left foot (ICD-10 - M86.272) Plan Of Treatment Pending Test Test Name Order Date [id number]-PLRYGAK SKIN/TISSUE 03/17/2024 Next Appt Details Follow Up: 1 Week, Reason: Provider Name:Bryanna sosa, 03/26/2024 09:30:00 AM, [address] [place], [address], Procedure Notes * Category Sub-Category Detail Notes [...] controlled through direct pressure. Post debridement measurements: 12 mm x _12 mm x 3 mm. Sutures placed in second digit. Character of the wound post debriement is stable (68821) Progress Notes * Lino OLIVEIRA KDOB: [birth year] (69 yo M)Acc No.[id number]:03/17/2024 Progress Notes Patient:?Lino OLIVEIRA Provider:?Bryanna Garcia DPM :1955???Age:69 Y???Sex:Male Wei e:03/17/2024 Address:[address] [place] [address], [facility] Pcp:LADONNA Arreola Subjective: * Chief Complaints: * ???Open sore - Toe * HPI: ???Skin problems:?Duration:?several weeks.?Treatments:?Local care consisting of daily distilled water wound cleanse, application of sterile dressing, offloading via surgical shoe.? * ROS:?General/Constitutional:?Nausea?denies, denies.?Vomiting?denies, denies.?Hunger Thirst?denies, denies.?Loss appetite?denies, denies.?Chills?denies, denies.?Fatigue?denies, denies.?Fever?denies, denies.?Night Sweats denies, denies.?Unexplained weight loss?denies, denies.?Unexplained weight gain?denies.?Ophthalmologic:?Blurred vision?denies.?Red eye?denies.?HEENTM:?Dentures?denies, denies.?Dizziness?denies, denies.?Glasses/contacts?admits.?Retinopathy?denies, denies.?Blurred/double vision?denies, denies.?TMJ?denies, denies.?Discharge/drainage?denies, denies. Implants?denies, denies.?Sore throat?denies.?Dental implants?denies.?Hard of hearing ?admits.?Difficulty chewing/swallowing/speaking?denies, denies.?Nose bleeds?denies, denies.?Sore mouth?denies, denies.?Swollen glands?denies.?Respiratory:?On Oxygen?denies, denies.?Pneumonia/pleurisy?denies, denies.?Bronchitis?denies, denies.?Emphysema?denies, denies.?Coughing?denies, denies.?Cough blood?denies, denies.?Shortness of breath?denies, denies.?Wheezing?denies, denies.?Cardiovascular:?Pacemaker?denies, denies.?MVP?denies, denies.?WPW?denies, denies.?CHF?denies, denies.?Heart attack?denies, denies.?Septal defect?denies, denies.?Rapid beat?denies, denies.?Chest pain ?denies, denies.?Atrial Fib.?denies, denies.?Murmur/Palpitations?denies, denies.?Gastrointestinal:?Hemorrhoids?denies, denies.?Stomach/Abdominal pain?denies, denies.?Dark blood stool?denies, denies.?Irritable bowel ?denies, denies.?Constipation?denies, denies.?Diarrhea?denies, denies.?Vomiting?denies.?Hematology:?Swelling?denies, denies.?Clots?denies.?Varicose Veins?denies.?Bruising?on aspirin, denies.?Bleeding problem?denies, denies.?Genitourinary:?Blood urine?denies, denies.?Frequent/Painfu/urination/bladder control?denies, denies.?Kidney stones?denies, denies.?Infection (UTI)?denies, denies.?Nephropathy?admits.?sex trans dis (STD)?denies.?Prostate?denies.?Musculoskeletal:?Hammertoes?denies, denies.?Bunions?denies, denies.?Scoliosis/kyphosis?denies.?Back Pain?denies.?Muscle Cramps/ Resting?denies.?Muscle cramps / walking?denies, denies.?Generalized aches and pains?admits.?Weakness?denies, denies.?Integ.:?White?denies, denies.?Scars?denies, denies.?Corns/calluses?denies, denies.?Ingrown nails?denies, denies.?Painful nails?denies, [...] leg 06/30/2021tent Left leg 08/09/2021tent Right leg 09/13/2021apsasin treatment x30 minutes/4x year 1st dosw 12/04/2021 * Family History:?Mother: dece ased, stroke, diagnosed with Unspecified essential hypertension, Unspecified heart disease, Family history of arthritis.?Father: , diagnosed with Unspecified cerebral artery occlusion with cerebral infarction.? * Social History:?Tobacco Use:?Tobacco use other than smoking?Are you an other tobacco user??No ?Tobacco Control (Standard)?Tobacco use:?Nonsmoker ???Drugs/Alcohol:?Drugs?Have you used drugs other than those for medical reasons in the past 12 months??No ?Alcohol Screen?Did you have a drink containing alcohol in the past year??Yes ?Points?0 ?Interpretation?Negative ???Miscellaneous:?Caffeine: yes, frequency:, 1-2 cups per day. ?Children: yes. ?Exercise: yes. ?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: . 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 * Medications:?TakingEliquis C ardizem Acetaminophen-Codeine 300-30 [...] anaphylaxisMotrin: anaphylaxisNSAIDs: anaphylaxisyes[Allergies Verified] Objective: * Vitals:?Ht:5ft9in, Wt:273, B MA:40.31, Shoe size:12EEE, BP:120/81mm Hg, BS:108, Ht-cm: 175.26 cm, Wt-k.83 kg. * ???Past Orders: ???Lab:HEMOGLOBIN A1C (GLYCO HEMOGLOBIN) (Order Date - 02/04/2024) (Collection Date & Time - 12/04/2023 11:27 AM) ? Value Reference Range ?TOTAL HEMOGLOBIN (HGBA1C) 5.4 * Examination: ???Dermatologic: ?ULCER:?LOCATION, dorsal proximal IPJ T1 SIZE, NOW 9 mm X 8 mm X 5 mm, BASE, fibrotic, RIM, hyperkeratotic, UNDERMINING, noneTRACKING, Sub Q with Fat layer exposed, DRAINAGE, serosanguineous, moderate, NECROTIC TISSUE, loosely-adherent, yellow slough, MALODOR, absent, CALOR, absent, ERYTHEMA, absent Well healed cicatrix to site of previous partial first ray amputation, LEFT.?General Examination: ?GENERAL APPEARANCE:?pleasant, alert, well nourished, well developed, well hydrated, with good attention to hygene/body habitus, and in no acute distress.?ORIENTED:?person,place, and time.? Assessment: * Assessment: 1.?Type 2 diabetes mellitus with diabetic polyneuropathy - E11.42???2.?Skin ulcer of toe of left foot with fat layer exposed - L97.522 (Primary)???Notes :Response to treatment Unchanged???3.?History of amputation - Z89.9???4.?Peripheral vascular disease of extremity - I73.9???5.?Subacute osteomyelitis of left foot - M86.272???Specify :Differential- Unable to exclude??? Plan: * Treatment: * Procedures:?Debride skin and subQ:?Open wound?Physician of [...] controlled through direct pressure. Post debridement measurements: 12 mm x _12 mm x 3 mm. Sutures placed in second digit.? Character of the wound post debriement is stable (11373).? * Procedure Codes:?74204 DEBRI DE SKIN/TISSUE, Modifiers: XS * Preventive Medicine:? ??Counseling:?Ulcer:?Given recent successful results to treatment, The patient is to cont the local wound care as directed. Daily medihoney/ DSD and ambulation in surgical shoe only..? * Follow Up:?1 Week * Images: * Sign off status: Completed true * Provider:?Bryanna Garcia DPM Date:?0 03/17/2024 Generated for Merrick alvarado/Pepe/eTchante on:?03/18/2024 01:05 PM EST History and Physical Notes * HPI (History of Present Illness) Category Sub-Category Detail Notes Category Not es Skin problems Duration: several weeks Treatments: Local care consistin g of daily distilled water wound cleanse, application of sterile dressing, offloading via surgical shoe Examination Category Sub-Category Detail Notes Category Not es Dermatologic ULCER: LOCATION, dorsal proximal IPJ T1 SIZE, NOW 9 mm X 8 mm X 5 mm, BASE, fibrotic, RIM, hyperkeratotic, UNDERMINING, noneTRACKING, Sub Q with Fat layer exposed, DRAINAGE, serosanguineous, moderate, NECROTIC TISSUE, loosely-adherent, yellow slough, MALODOR, absent, CALOR, absent, ERYTHEMA, absentWell healed cicatrix to site of previous partial first ray amputation, LEFT General Examination GENERAL APPEARANCE: pleasant , alert, well nourished, well developed, well hydrated, with good attention to hygene/body habitus, and in no acute distress ORIENTED: person,place, and ti me
--- OUTSIDE RECORDS SUMMARY | 2024-03-18 13:06 | XMS_ITS ---
Author Organization [facility] Address [address] [facility] [address] [place] [address] Care Team Providers Care Coach Mechanic Name Role Phone Jas Stone Primary Care Provider Unav Bryanna Chavarria Unavailable [phone] Allergies Allergen (clinical drug ingredient) Drug/Non Drug [...] Duration) Notes Start Date End Date Status Pravastatin Sodium 40 MG 1 tablet Orally Once a day for 30 day(s) Active Prednisone Active Tamsulosin HCl 0.4 MG 1 capsule Orally O nce a day for 30 day(s) Active Folic Acid 1 MG 1 tablet Orally Once a day for 30 day(s) Active metFORMIN HCl ER 500 MG 1 tablet with ev ening meal Orally twice a day Active Cardizem Active Acetaminophen-Codeine 300-30 MG 1 tablet as needed Orally every 6 hrs Active Aspirin 81 MG 1 tablet Orally Once a day for 30 day(s) Active Effexor Active EpiPen Active Diclofenac Not-Takin g Eliquis Active Ketoconazole Not-Dipesh ing Hydrocortisone Not-T aking EPINEPHrine 0.3 MG/0.3ML as directed Injection Not-Taking Venlafaxine HCl 75 MG 1 tablet with food Orally Once a day for 30 day(s) Not-Taking Ropinirole Hydrochloride Not-Taking Olopatadine HCl 0.1 % 1 drop into affect ed eye Ophthalmic Twice a day Not-Taking Naloxone HCl 4 MG/0.1ML as directed Nasally Not-Taking Lidocaine-Prilocaine 2.5-2.5 % as directed Externally Not-T aking Humira Pen 40 MG/0.4ML as directed Subcutaneous Not-Taking Plavix Not-Taking Amoxicillin Not-Taki ng Keflex 500 MG 1 capsule Orally neil ry 12 hrs for 10 day(s) 10/24/2023 Not-Taking Cephalexin 500 MG 1 capsule Orally neil ry 8 hrs for 10 days Not-Taking Extra Depth Diabetic Shoes with 3 Pair Custom heat-molded multi-density innersoles for 1 year Dx: 12/13/2021 Active Custom Orthotics as directed A ctive Magnesium 400 MG as directed Orally Not-Taking Methotrexate 2.5 MG as directed Orally Not-Taking Metoprolol Succinate ER Not-Taking Vitamin D Active Social History Tobacco Use: Social History [...] use: Nonsmoker Vital Signs Height 5ft9in in 03/10/2024 Weight 280 lbs 03/10/2024 BMI 41.34 kg/m2 03/10/2024 Blood pressure systolic 120 mm Hg 03/10/19 25 Blood pressure diastolic 80 mm Hg 025 Procedures Procedure Date Ordered Date Performed Result Body Sit e 00294-ATMHDIB SKIN/TISSUE 03/10/2024 N/A Encounters Encounter Location Date Provider Diagnosis [facility] [place] [address] [place] [address] 03/10/2024 Bryanna Garcia Skin ulcer of toe of left foot with fat layer exposed L97.522 ; Type 2 diabetes mellitus with diabetic polyneuropathy E11.42 ; History of amputation Z89.9 ; Peripheral vascular disease of extremity I73.9 and Subacute osteomyelitis of left foot M86.272 Assessments Encounter Date Diagnosis (ICD Code) Assessment Notes Treatment Notes Treatment Clinical Notes Section Notes 03/10/2024 Skin ulcer of toe of left foot with fat layer exposed (ICD-10 - L97.522) Response to treatment Unchanged 03/10/2024 Type 2 diabetes mellitus with diabetic polyneuropathy (ICD-10 - E11.42) 03/10/2024 History of amputation (ICD-10 - Z89.9) 03/10/2024 Peripheral vascular disease of extremity (ICD-10 - I73.9) 03/10/2024 Subacute osteomyelitis of left foot (ICD-10 - M86.272) Plan Of Treatment Pending Test Test Name Order Date 55855-MTSQUVA SKIN/TISSUE 03/10/2024 Next Appt Details Follow Up: 1 Week, Reason: Provider Name:Bryanna sosa, 03/26/2024 09:30:00 AM, [address] [place] [address], [phone], Procedure Notes * Category Sub-Category Detail Notes [...] of the wound post debriement is stable (82039) Progress Notes * Lino OLIVEIRA KDOB: [birth year] (69 yo M)Acc No.[id number]:03/10/2024 Progress Notes Patient:?Lino OLIVEIRA Provider:?Bryanna Garcia DPM :1955???Age:69 Y???Sex:Male Wei e:03/10/2024 Address:[address] [place] [address], [facility] Pcp:LADONNA Arreola Subjective: * Chief Complaints: * ???Open sore - Toe * HPI: ???Skin problems:?Duration:?several weeks.?Treatments:?Local care consisting of daily distilled water wound cleanse,medihoney as recommended, Patient and state significant improvement in erythema application of sterile dressing, offloading via surgical shoe..? * ROS:?General/Constitutional:?Nausea?denies, denies.?Vomiting?denies, denies.?Hunger Thirst?denies, denies.?Loss appetite?denies, [...] ?Exercise: yes. ?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: . 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 * Medications:?TakingEliquis C ardizem Acetaminophen-Codeine 300-30 [...] anaphylaxisyes[Allergies Verified] Objective: * Vitals:?Ht:5ft9in, Wt:280, B OK:41.34, Shoe size:12EEE, BP:120/80mm Hg, Ht-cm: 175.26 cm, Wt-k.01 kg. * ???Past Orders: ???Lab:HEMOGLOBIN A1C (GLYCO HEMOGLOBIN) (Order Date - 02/04/2024) (Collection Date & Time - 12/04/2023 11:27 AM) ? Value Reference Range ?TOTAL HEMOGLOBIN (HGBA1C) 5.4 * Examination: ???Dermatologic: ?ULCER:?LOCATION, dorsal proximal IPJ T1 SIZE, NOW 10 mm X 5 mm X 3mm, BASE, fibrotic, RIM, hyperkeratotic, [...] of the wound post debriement is stable (35083).? * Procedure Codes:?11528 DEBRI DE SKIN/TISSUE, Modifiers: XS * Preventive Medicine:? ??Counseling:?Ulcer:?Given recent successful results to treatment, The patient is to cont the local wound care as directed. Daily medihoney/ DSD and ambulation in surgical shoe only..? * Follow Up:?1 Week * Images: * Sign off status: Completed true * Provider:?Bryanna Garcia DPM Date:?0 03/10/2024 Generated for Merrick alvarado/Pepe/eToctavioitting on:?03/18/2024 01:05 PM EST History and Physical Notes * HPI (History of Present Illness) Category Sub-Category Detail Notes Category Not es Skin problems Duration: several weeks Treatments: Local care consistin g of daily distilled water wound cleanse,medihoney as recommended, Patient and state significant improvement in erythema application of sterile dressing, offloading via surgical shoe. Examination Category Sub-Category Detail Notes Category Not es Dermatologic ULCER: LOCATION, dorsal proximal IPJ T1 SIZE, NOW 10 mm X 5 mm X 3mm, BASE, fibrotic, RIM, hyperkeratotic, [...]
--- OUTSIDE RECORDS SUMMARY | 2024-03-18 13:06 | XMS_ITS | Patient Health Record ---
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 Role Phone Jas Stone Primary Care Provider UnaBryanna Angel Unavailable [phone] Barrington Cramer Unavailable [phone] Tono Skinner Unavailable [phone] Allergies Allergen (clinical drug ingredient) Drug/Non Drug [...] Date Status Cardizem Active Ropinirole Hydrochloride Not-Taking Acetaminophen-Codeine 300-30 MG 1 tablet as needed Orally every 6 hrs Active Olopatadine HCl 0.1 % 1 drop into affect ed eye Ophthalmic Twice a day Not-Taking Amoxicillin Not-Taki ng Eliquis Active Venlafaxine HCl 75 MG 1 tablet with food Orally Once a day for 30 day(s) Not-Taking EpiPen Active Ketoconazole Not-Dipesh ing Folic Acid 1 MG 1 tablet Orally Once a day for 30 day(s) Active Hydrocortisone Not-T aking Aspirin 81 MG 1 tablet Orally Once a day for 30 day(s) Active Naloxone HCl 4 MG/0.1ML as directed Nasally Not-Taking Effexor Active Lidocaine-Prilocaine 2.5-2.5 % as directed Externally Not-T aking metFORMIN HCl ER 500 MG 1 tablet with ev ening meal Orally twice a day Active Pravastatin Sodium 40 MG 1 tablet Orally Once a day for 30 day(s) Active Humira Pen 40 MG/0.4ML as directed Subcutaneous Not-Taking Plavix Not-Taking Extra Depth Diabetic Shoes with 3 Pair Custom heat-molded multi-density innersoles for 1 year Dx: 12/13/2021 Active Custom Orthotics as directed A ctive Tamsulosin HCl 0.4 MG 1 capsule Orally O nce a day for 30 day(s) Active Vitamin D Active Metoprolol Succinate ER Not-Taking Keflex 500 MG 1 capsule Orally neil ry 12 hrs for 10 day(s) 10/24/2023 Not-Taking Magnesium 400 MG as directed Orally Not-Taking Methotrexate 2.5 MG as directed Orally Not-Taking Cephalexin 500 MG 1 capsule Orally neil ry 8 hrs for 10 days Not-Taking Diclofenac Not-Takin g Prednisone Active EPINEPHrine 0.3 MG/0.3ML as directed Injection Not-Taking Immunizations Vaccine Route Administration Date Status Comme [...] (Standard) Question Answer Notes Tobacco use: Nonsmoker Problems Problem Type SNOMED Code ICD Code Onset Dates Problem Status W/U Status Risk Notes Problem Polyneuropathy due to type 2 diabetes mellitus (406854274) Type 2 diabetes mellitus with diabetic polyneuropathy (E11.42) Active confirmed Problem Acquired hammer toe of left foot (405978256662722 3) Hammertoe of left foot (M20.42) Active confirmed Problem Subacute osteomyelitis of left foot (941503458212199 07) Subacute osteomyelitis of left foot (M86.272) Active confirmed Problem Ischemic foot ulcer (895737847) Skin ulcer of toe of left foot with fat layer exposed (L97.522) Active confirmed Response to treatment Unchanged Vital Signs Blood pressure diastolic 81 mm Hg 03/17/2024 Height 5ft9in in 03/17/2024 Blood pressure systolic 120 mm Hg 03/17/2024 Weight 273 lbs 03/17/2024 BMI 40.31 kg/m2 03/17/2024 Procedures Procedure Date Ordered Date Performed Result Body Sit e 29704-EEEFSOI SKIN/TISSUE 10/24/2023 N/A 73048-ACHEJGG SKIN/TISSUE 11/02/2023 N/A 91734-JRALGAH SKIN/TISSUE 02/04/2024 N/A 72771-RZCQPEL SKIN/TISSUE 02/11/2024 N/A 47515 - Tenotomy, open flexor 02/11/2024 N/A 10472-MIQCPMY SKIN/TISSUE 02/20/2024 N/A 48324-GPQHYKK SKIN/TISSUE 03/10/2024 N/A 29593-ACBULBG SKIN/TISSUE 03/17/2024 N/A Encounters Encounter Location Date Provider Diagnosis [address] [address] 10/24/2023 Barrington Cramer Skin disease L98.9 ; 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 ; Cellulitis of left lower limb L03.116 ; Dry gangrene I96 and Type 2 diabetes mellitus with diabetic polyneuropathy E11.[address] [address] 11/02/2023 Tono Susanne Skin ulcer of toe of left foot with fat layer exposed L97.522 ; Cellulitis of toe of left foot L03.032 and Type 2 diabetes mellitus with diabetic polyneuropathy E11.[address] [address] 11/07/2023 Barrington Cramer Skin disease L98.9 ; 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 ; Cellulitis of left lower limb L03.116 ; Dry gangrene I96 and Type 2 diabetes mellitus with diabetic polyneuropathy E11.[address] [address] 02/04/2024 Bryanna Garcia Skin ulcer of toe of left foot with fat layer exposed L97.522 ; Hammertoe of left foot M20.42 ; Type 2 diabetes mellitus with diabetic polyneuropathy E11.42 ; History of amputation Z89.9 and Peripheral vascular disease of extremity I73.[address] [address] 02/11/2024 Bryanna Garcia Hammer toe of left foot M20.42 ; Skin ulcer of toe of left foot with fat layer exposed L97.522 ; Type 2 diabetes mellitus with diabetic polyneuropathy E11.42 ; History of amputation Z89.9 and Peripheral vascular disease of extremity I73.[address] [address] 02/20/2024 Bryanna Garcia Hammer toe of left foot M20.42 ; Skin ulcer of toe of left foot with fat layer exposed L97.522 ; Type 2 diabetes mellitus with diabetic polyneuropathy E11.42 ; History of amputation Z89.9 ; Peripheral vascular disease of extremity I73.9 and Subacute osteomyelitis of left foot M86.[address] [address] 03/10/2024 Bryanna Garcia Skin ulcer of toe of left foot with fat layer exposed L97.522 ; Type 2 diabetes mellitus with diabetic polyneuropathy E11.42 ; History of amputation Z89.9 ; Peripheral vascular disease of extremity I73.9 and Subacute osteomyelitis of left foot M86.[address] [address] 03/17/2024 Bryanna Garcia Skin ulcer of toe of left foot with fat layer exposed L97.522 ; Type 2 diabetes mellitus with diabetic polyneuropathy E11.42 ; History of amputation Z89.9 ; Peripheral vascular disease of extremity I73.9 and Subacute osteomyelitis of left foot M86.[address] [address] 10/24/2023 Barrington Cramer [place] [address] [place] [address] 10/24/2023 [facility] [address] [address] 11/02/2023 [facility] Sk[facility] [address] [place] [address] 11/07/2023 [facility] [address] [address] 11/13/2023 [facility] [address] [address] 02/04/2024 [facility] [address] 02/21/2024 Bryanna Garcia Assessments Encounter Date Diagnosis (ICD [...] CARE INSTRUCTIONS. pdf (WOUND CARE INSTRUCTIONS. pdf) 02/20/2024 Hammer toe of left foot (ICD-10 - M20.42) Improvement 03/10/2024 Type 2 diabetes mellitus with diabetic polyneuropathy (ICD-10 - E11.42) 03/10/2024 Skin ulcer of toe of left foot with fat layer exposed (ICD-10 - L97.522) Response to treatment Unchanged 03/17/2024 Type 2 diabetes mellitus with diabetic polyneuropathy (ICD-10 - E11.42) 03/17/2024 Skin ulcer of toe of left foot with fat layer exposed (ICD-10 - L97.522) Response to treatment Unchanged 03/17/2024 History of amputation (ICD-10 - Z89.9) 03/10/2024 History of amputation (ICD-10 - Z89.9) 02/20/2024 Skin ulcer of toe of left foot with fat layer exposed (ICD-10 - L97.522) Response to treatment Unchanged Patient Educated with: WOUND CARE INSTRUCTIONS. pdf (WOUND CARE INSTRUCTIONS. pdf) 02/11/2024 Type 2 diabetes mellitus with diabetic polyneuropathy (ICD-10 - E11.42) 02/20/2024 Type 2 diabetes mellitus with diabetic polyneuropathy (ICD-10 - E11.42) 02/04/2024 Type 2 diabetes mellitus with diabetic polyneuropathy (ICD-10 - E11.42) 11/07/2023 Cellulitis of left lower limb (ICD-10 - L03.116) 11/02/2023 Type 2 diabetes mellitus with diabetic polyneuropathy (ICD-10 - E11.42) 10/24/2023 Cellulitis of left lower limb (ICD-10 - L03.116) 10/24/2023 Dry gangrene (ICD-10 - I96) 11/07/2023 Dry gangrene (ICD-10 - I96) 02/11/2024 History of amputation (ICD-10 - Z89.9) 02/04/2024 History of amputation (ICD-10 - Z89.9) 02/20/2024 History of amputation (ICD-10 - Z89.9) 03/10/2024 Peripheral vascular disease of extremity (ICD-10 - I73.9) 03/17/2024 Peripheral vascular disease of extremity (ICD-10 - I73.9) 03/17/2024 Subacute osteomyelitis of left foot (ICD-10 - M86.272) 02/20/2024 Peripheral vascular disease of extremity (ICD-10 - I73.9) 03/10/2024 Subacute osteomyelitis of left foot (ICD-10 - M86.272) 02/04/2024 Peripheral vascular disease of extremity (ICD-10 - I73.9) 02/11/2024 Peripheral vascular disease of extremity (ICD-10 - I73.9) 11/07/2023 Type 2 diabetes mellitus with diabetic polyneuropathy (ICD-10 - E11.42) 10/24/2023 Type 2 diabetes mellitus with diabetic polyneuropathy (ICD-10 - E11.42) 02/20/2024 Subacute osteomyelitis of left foot (ICD-10 - M86.272) 11/02/2023 Other 02/04/2024 Other Patient Educated with: WOUND CARE INSTRUCTIONS. pdf (WOUND CARE INSTRUCTIONS. pdf) Plan Of Treatment Pending Test Test Name Order Date X ray : Ankle, left 3V 12/13/2021 CBC 02/20/2024 ESR 02/20/2024 X ray : Foot, left 3V 12/13/2021 X ray : Foot, left 3V 11/02/2023 X ray : Foot, right 3V 12/13/2021 64354-MXVIIWB SKIN/TISSUE 02/04/2024 18409-YDWFHWE SKIN/TISSUE 10/24/2023 74511-SGRHOTX SKIN/TISSUE 11/02/2023 65572-PMWZPXC SKIN/TISSUE 03/10/2024 39161-XFFCDRI SKIN/TISSUE 03/17/2024 48998-SWWAQRW SKIN/TISSUE 02/11/2024 13657-TNSZFOY SKIN/TISSUE 02/20/2024 X ray : Ankle, right 3V 12/13/2021 72219 - Tenotomy, open flexor 02/11/2024 Next Appt Details Provider Name:Bryanna sosa, 03/26/2024 09:30:00 AM, [address] [place] [address], [phone], Insurance Providers Payer Name Payer Address Payer Phone Subscriber Number Group Number Insured Name Patient Relationship to Insured Coverage Start Date Coverage End Date [facility] 65 Medicare Preferred [address] [place] [address] [id number] Lino Nayak Self - patient is the [...] angiogram spinal stenosis surgery 2019 bilateral TKR [id number] Stent Hospitalization History Reason Date(Month/Year) Capsasin treatment x30 minutes/4x year 1 [facility] dosw 12/04/2021 Stent Right leg 09/13/2021 Stent Left leg 08/09/2021 Ultrasound Bilateral legs, angiogram Lef t leg 06/30/2021 Injection, [facility] 07/06/2021 MRI Left Foot 03/10/2021 Xray left Foot 03/04/2021
--- OUTSIDE RECORDS SUMMARY | 2024-03-18 13:06 | XMS_ITS ---
Author Organization [facility] Address [address] [place] [address] Care Team Providers Care Toll Line Repairer Name Role Phone Jas Stone Primary Care Provider Unav ailable Bryanna Garcia [phone] Encounters Encounter Location Date Provider Diagnosis [address] [address] 02/21/2024 Bryanna Garcia Plan Of Treatment Next Appt Details Provider Name:Bryanna sosa, 03/26/2024 09:30:00 AM, [address] [place], [address], Progress Notes * Lino OLIVEIRA KDOB: [birth year] (68 yo M)Acc No.[id number]:02/21/2024 Patient:?Lino OLIVEIRA :1955???Age:68 Y???Sex:Male Address:[address] [place] [address], [place], [address] * true * Date:? Generated for Arleeni jenny/Pepe/eTransmitting on:?03/18/2024 01:05 PM EST
== END 2024-03-18 11:44 | disposition home or self-care (01) ==
PROVIDERS: PCP Nurse Practitioner Family; Visit Provider Urology
DX: N20.0 Calculus of kidney (principal); N32.81 Overactive bladder; N40.1 Benign prostatic hyperplasia with lower urinary tract symptoms; Z13.9 Encounter for screening, unspecified
CPT/HCPCS: 99213

== ENCOUNTER → 2024-03-18 10:59 | Outpatient (BNVA) | payer MEDICARE, SELFPAY | PROVIDERS: PCP Nurse Practitioner Family; Visit Provider Urology | DX: N40.1 Benign prostatic hyperplasia with lower urinary tract symptoms (principal); N20.0 Calculus of kidney; N32.81 Overactive bladder | CPT/HCPCS: 51798; 81003; 99212 ==

== ENCOUNTER 2024-04-07 14:10 | Outpatient (AMB) | payer MEDICARE, SELFPAY ==
[2024-04-07 14:16] VITALS: BP 122/74; PULSE 65; O2SAT 97; BMI 41.0
--- NOTE | 2024-04-07 14:16 | A.OFFPC_ITS ---
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 Accompanied by: Self / Same As Patient Allergies NSAIDS (Non-Steroidal Anti-Inflamma Allergy (Severe, Verified 04/07/24 14:16) Anaphylaxis methadone Allergy (Intermediate, Verified 04/07/24 14:16) Vomiting Medication List - Last Reconciled 04/07/24 by Jas Casarez [facility]- acetaminophen-codeine 300-30 mg 1 tab PO BID PRN 30 days apixaban (Eliquis) 5 mg PO BID 90 days aspirin 81 mg PO DAILY blood sugar diagnostic (FreeStyle Test strips) Test blood sugar once a day cholecalciferol (vitamin D3) 50 mcg PO DAILY 90 days CPAP Machine/Device (CPAP) use daily NS [Diabetic shoes with 3 pair of custom orthotics wear daily] diclofenac sodium 1% 4 grams topical QID PRN 30 days diltiazem HCl ER 120 mg PO BID 90 days epinephrine (EpiPen) 0.3 mg (0.3 mL) IM Q10M PRN ketoconazole 2% 1 appl topical 2XW metformin ER 500 mg PO DAILY 90 days pravastatin 40 mg PO DAILY prednisone 10 mg PO DAILY semaglutide 2 mg (0.75 mL) subcut QWEEK 30 days sildenafil 25 mg PO DAILY PRN 10 days tamsulosin 0.4 mg PO DAILY 90 days venlafaxine ER 150 mg PO DAILY 90 days Tobacco use date assessed: 04/07/24 Fall risk assessment: No Falls in past year Last assessed Fall Risk: 04/07/24 Dental Screening Dental Screen Date: 04/07/24 Did you have a dental visit in the last 12 months?: Yes Did you have a dental problem in the last 6 months where you did not have access to dental care?: No Was dental information given to patient?: Patient has dentist HPI 4m follow up HPI Details Chief Complaint Follow-up for diabetes management and recently amputated left first toe. History of Present Illness The patient is a 69-year-old male presenting with a follow-up for diabetes mellitus and concerns related to the amputation of the first toe on his left foot. The patient has been under regular monitoring for his diabetes, and a monofilament test indicated a lack of sensation in the left foot. Post- amputation, the patient has been managing a non-healing sore on the dorsal aspect of the second toe on the left foot. The sore has been under daily attention without signs of infection, and bacitracin has been applied with regular dressing changes. The patient's diabetes management includes the use of Ozempic, which is being adjusted to control blood glucose levels. The patient has a history of significant weight loss in recent months, which has been associated with improved diabetes control, as evidenced by an A1C level of 6.5. He has regular consultations with rheumatology, endocrinology, urology, cardiology, and podiatry. Social History Health Maintenance - A1C level is 6.5, well within the targ et range for diabetes control. - Regular eye examinations are up to min e. Review of Systems - Neurological: Reports lack of sensatio n to the left foot. - Dermatological: Reports a small non-he aling sore on the second toe of the left foot. Physical Exam General: Cooperative, healthy appearing, comfortable, no acute distress and well developed, obese Orientation: Patient oriented x3 Limitations: No limitations Head: Normal to inspection Ears: Hearing grossly normal bilaterally Nose: Normal external nose present Face and sinus: Normal facial exam Eyes: Appearance normal, both eyes and all related structures Neck: Normal visual inspection and Yes full ROM Respiratory: Normal respiratory effort and able to speak in complete sentences. Clear to auscultation bilaterally Cardiovascular: Regular rate and rhythm. Normal S1 and S2, systolic murmur GI: Normal to inspection. Soft to palpation and nontender Skin: No rashes or lesions noted Neuro: Patient oriented x3 Extremities: Lack of sensation to the left foot with monofilament. Small sore on the dorsal aspect of the second toe of the left foot. First toe amputated on the left foot. Normal to inspection otherwise. Results - Labs: A1C level at 6.5. Plan - Increase Ozempic dosage from 1 mg to 2 mg to improve glycemic control. - Continue monitoring the non-healing so re on the left foot with regular dressing changes and apply bacitracin help to prevent infection. - Arrange for follow-up laboratory tests to assess ongoing diabetes management efficacy. - Encourage continued specialist care [facility] rheumatology, endocrinology, urology, and podiatry for comprehensive management. Patient was informed and verbally consented to the use of an ambient scribe for clinic note documentation during this visit. Discussion Notes During the visit, I discussed with the patient the satisfactory control of diabetes as reflected by the A1C level of 6.5. We agreed on increasing the Ozempic dosage to improve his glycemic control further. I emphasized the importance of regular foot care and monitoring of the sore on the second toe to prevent infection. Additionally, we reviewed the need for ongoing specialist consultations to ensure a multi-faceted approach to his diabetes management. The patient appeared motivated by the weight loss and overall treatment goals. We will plan for repeating labs in the near future to assess the efficacy of the treatment adjustments. Patient Instructions - Increase Ozempic dosage to 2 mg as ins tructed. - Continue with daily wound care on the second toe of the left foot. - Monitor for any signs of infection, connelly ch as redness, swelling, or discharge, and seek medical attention if these occur. - Maintain appointments with specialists for comprehensive diabetes management. - Expect communication regarding upcomin g laboratory tests for diabetes monitoring. 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 Seronegative rheumatoid arthritis Obesity (BMI 30-39.9) Vitamin D deficiency Diabetes type 2, controlled Osteopenia Adrenal 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 Painful total knee replacement, right Surgical History Status post amputation History of endarterectomy History of esophagogastroduodenoscopy (EGD) H/O colonoscopy Hx of coronary angiogram History of back surgery (~2018) History of knee replacement procedure of right knee History of knee replacement procedure of left knee Hx of cardiac cath Family History Father Angina pectoris Mother Stroke Social History Household Members: Spouse Housing: House Are you a primary special needs caregiver to a significant other at home: No Do you presently have visiting nurse or other home services: No 75 years or older and lives alone: No Alcohol intake: former Year quit: 2023 Patient Tobacco Use Status: Former Tobacco user Years Smoked: 20 years ago e-Cigarette/Vaping Use: Never Used Second Hand Smoke Exposure: No Substance Use Type: Marijuana service: No Current occupational status: retired Cognitive needs: No Hearing needs: No Vision needs: No Questionnaire PHQ-9 Over the last 2 weeks, how often have you been bothered by any of the following problems? 1. Little interest or pleasure in doing things: not at all 2. Feeling down, depressed, or hopeless: not at all 3. Trouble falling or staying asleep, or sleeping too much: not at all 4. Feeling tired or having little energy: not at all 5. Poor appetite or overeating: not at all 6. Feeling bad about yourself - or that you are a failure or have let yourself or your family down: not at all 7. Trouble concentrating on things, such as reading the newspaper or watching television: not at all 8. Moving or speaking so slowly that other people could have noticed. Or the opposite - being so fidgety or restless that you have been moving around a lot more than usual: not at all 9. Thoughts that you would be better off or of hurting yourself in some way: not at all Total score: 0 Depression Screening Interpretation: Negative Depression Screening Done: Yes 85168 - PHQ-9 Billing: Yes Source: Developed by Drs. Sourav Perez, Cyndi Kim, Tino Alvares and colleagues, with an educational melissa from [employer]. Thrive Questionnaire Date Thrive assessed: 04/07/24 I am a: Patient What is your living situation today?: I have a steady place to live Within the past 12 months, did the food you bought not last and you didn't have the money to get more?: Never true Within the past 12 months, did you worry whether your food would run out before you got money to buy more?: Never true Do you have trouble paying for medicines?: No Do you have trouble getting transportation to medical appointments?: No Do you have trouble paying your heating and electricity bill?: No Do you have trouble taking care of your child, family member or friend?: No Do you have trouble with day-to-day activities such as bathing, preparing meals, shopping, managing finances, etc.?: No Are you currently unemployed and looking for a job?: No Are you interested in more education?: No Please select the resources that you would like help with: None Currently or been in a relationship where the following occur: No concerns reported THRIVE Score: 0 AUDIT C Alcohol Use Questionnaire (AUDIT-C) 1. How often do you have a drink containing alcohol?: Monthly or less 2. How many drinks containing alcohol do you have on a typical day when you are drinking?: 1 or 2 3. How often do you have six or more drinks on one occasion?: Never Total Score: 1 Score Reviewed/Action Taken: Yes AGUSTINA-7 AMB Questionnaire AGUSTINA-7 Date AGUSTINA - 7 assessed: 04/07/24 Feeling nervous, anxious, or on edge: 0 = Not at all Not being able to stop or control worryin = Not at all Worrying too much about different things: 0 = Not at all Trouble relaxin = Not at all Being so restless that it is hard to sit still: 0 = Not at all Becoming easily annoyed or irritable: 0 = Not at all Feeling afraid as if something awful might happen: 0 = Not at all Total AGUSTINA-7 score (0-4 normal; 5-9 mild; 10-14 moderate; 15-21 severe): 0 Source: Developed by Drs. Sourav Perez, Cyndi Kim, Tino Alvares and colleagues, with an educational melissa from [employer]. AGUSTINA-7 Assessment Billing AGUSTINA-7 Assessment Tool: AGUSTINA-7 Assessment 14065 Physical exam (Primary Care) Vital Signs: Last Vital Signs Pulse 65 04/07/24 14:16 BP 122/74 04/07/24 14:16 Pulse Ox 97 04/07/24 14:16 BMI result Body Mass Index 41.0 Tobacco/Smoking Status: Tobacco use Status Tobacco use date assessed 04/07/24 04/07/24 14:17 Patient Tobacco Use Status Former Tobacco user 04/07/24 14:17 e-Cigarette/Vaping Use Never Used 04/07/24 14:17 PHQ-9: PHQ-9 Score PHQ-9: Total score 0 04/07/24 14:17 Depression Screening Interpretation: Negative Thrive Assessment: Date of Thrive Assessment Date Thrive assessed 04/07/24 04/07/24 14:17 Currently or been in a relationship where the following occur: No concerns reported Results AMB Hemoglobin A1c AMB Hemoglobin A1c 6.5 % Last Edit by Lalo Bray CMA on 04/07/24 14: 37 Results Reviewed Results Reviewed: Laboratory Last Values Hgb A1c (Clinic) 6.5 % (4.0-6.0) H 04/07/24 14:36 Coding Level of Care Code Est Pt Level 3 (13650) Diagnoses Type 2 diabetes mellitus with peripheral neuropathy E11.42 Additional Codes AGUSTINA-7 Assessment Billing - AGUSTINA-7 Assessment Tool: AGUSTINA-7 Assessment 54912 ([id number]) PHQ-9 - 72623 - PHQ-9 Billing: Yes ([id number]) Assessment & Plan Assessment & Plan (1) Type 2 diabetes mellitus with peripheral neuropathy: Code(s): E11.42 - Type 2 diabetes mellitus with diabetic polyneuropathy Category: Medical Plan . Orders: Orders AMB Hemoglobin A1c Today Z13.9 - Encounter for screening, unspecified Comprehensive Met. Panel Today E11.42 - Type 2 diabetes mellitus with diabetic polyneuropathy Medications: New sildenafil administer 30 minutes to 4 hours before activity 25 mg PO DAILY 10 days PRN 10 tabs 0RF sexual activity Changed From semaglutide (Ozempic) 1 mg (0.75 mL) subcut QWEEK 3 mL 5RF To semaglutide 2 mg (0.75 mL) subcut QWEEK 30 days 3.75 mL 5RF
--- OUTSIDE RECORDS SUMMARY | 2024-04-07 15:50 | XMS_ITS | Encounter Summary ---
Author Organization [facility] Address [address] [place] [address] Care Team Providers Care Tool And Die Manager Name Role Phone Jas Casarez Moy Primary Care Provider [phone] Encounter Details Date Type Department Care Team (Late st Contact Info) Description 03/11/2024 11:20 AM EST - 03/11/2024 11:59 PM [facility] Hospital Encounter [facility] [address], [place] [id number] Denton Palacios MD [address] [place] [address] Aftercare following surgery of the circulatory system; Peripheral arterial disease (HCC) Discharge Disposition: Home or Self Care () Social History Tobacco Use Types Packs/Day Years Used Date Smoking Tobacco: Former Cigarettes 1.5 25 1 974 - 1998 Smokeless Tobacco: Former Snuff, Chew Quit: 07/03/2021 Alcohol Use Standard Drinks/Week Comments Not Currently 0 (1 standard drink = 0.6 oz pure alcohol) none for last month and a half, previously drank 9 drinks per week [facility] Utilities Answer Date Recorded In the past 12 months has e electric, gas, oil, or water company threatened to shut off services in your home? No 11/22/2023 Hunger Vital Sign Answer Date Recorded Within the past 12 months, y ou worried that your food would run out before you got the money to buy more. Never true 11/22/19 24 Within the past 12 months, t he food you bought just didn't last and you didn't have money to get more. Never true 11/22/2023 Transportation Answer Date Recorded In the past 12 months, has l ack of reliable transportation kept you from medical appointments, meetings, work or from getting things needed for daily living? No 11/22/2023 Housing Answer Date Recorded Housing Risk Low 2 11/22/2023 Housing Risk Medium Not on file 11/22/2023 Housing Risk High Not on file 11/22/2023 What is your living situation today? [facility] 11/22/2023 Sex and Gender Information Value Date Recorded Sex Assigned at Male 09/07/2021 2:22 PM EDT Legal Sex Male 10:32 AM EDT Gender Identity Male 09/07/2021 2:22 PM EDT Sexual Orientation Straight 09/07/2021 2: 22 PM EDT documented as of this encounter Medications at Time of Discharge acetaminophen-co deine (TYLENOL #3) 300-30 mg tablet Take 1 tablet by mouth 4 times a day as needed for pain. 07/13/2021 alpha lipoic acid 600 mg capsule Take 600 mg by mouth once a day. aspirin 81 mg EC tablet Take 81 mg by mouth once a day. 07/06/2021 bethanechol (URECHOLINE) 50 mg tablet Take 50 mg by mouth nightly. cholecalciferol (VITAMIN D3) 2,000 unit capsule Take 2,000 Units by mouth once a day. 07/06/2021 diclofenac (VOLTAREN) 1% gel Apply topically to the affected area 4 times a day as needed (pain). dilTIAZem CD (CARDIZEM CD) 120 mg 24 hr capsule SMARTSI Capsule(s) By Mouth Daily 01/05/2024 doxycycline hyclate (VIBRAMYCIN) 100 mg capsule Take 100 mg by mouth 2 times a day. For 7 days Eliquis 5 mg tablet SMARTSI Tablet(s) By Mouth Twice Daily 01/05/2024 EPINEPHrine (EPIPEN) 0.3 mg/0.3 mL injection syringe Inject 0.3 mg into the outer thigh muscle as directed as needed for anaphylaxis. 09/30/2021 folic acid (FOLVITE) 1 mg tablet Take 3,000 mcg by mouth once a day. 05/29/2021 HYDROmorphone (DILAUDID) 2 mg tablet Take 1 mg by mouth every 6 hours as needed for pain. ketoconazole (NIZORAL) 2% shampoo Apply topically to the affected area 2 times a week. 11/14/2021 metFORMIN ER (GLUCOPHAGE XR) 500 mg tablet Take 500 mg by mouth 2 times a day with meals. methotrexate (TREXALL) 2.5 mg tablet Take 6 tablets (15 mg total) by mouth once a week. You may restart taking this on 12/05/23 11/26/2023 metoprolol succinate XL (TOPROL XL) 50 mg tablet Take 25 mg by mouth once a day. 01/16/2022 naloxone HCl (NARCAN) 4 mg/actuation nasal spray Administer 4 mg into affected nostril(s). Instill the contents of 1 unit intranasally for suspected opioid overdose. Repeat after 3 minutes if no or minimal response. olopatadine (PATANOL) 0.1 % ophthalmic solution Instill 1 drop into both eyes 2 times a day as needed. 08/15/2021 oxybutynin XL (DITROPAN XL) 10 mg tablet Take 10 mg by mouth once a day. 08/06/2022 pravastatin (PRAVACHOL) 40 mg tablet Take 40 mg by mouth once a day. 07/09/2021 predniSONE (DELTASONE) 10 mg tablet Take 10 mg by mouth once a day. rOPINIRole (REQUIP) 0.5 mg tablet Take 0.5 mg by mouth nightly. 1-3 hours before bedtime 10/25/2021 sarilumab (Kevzara) 200 mg/1.14 mL pen injector Inject 200 mg under the skin every 14 days. semaglutide (Ozempic) 0.25 mg or 0.5 mg (2 mg/3 mL) pen injector Inject 0.5 mg under the skin per week. tamsulosin (FLOMAX) 0.4 mg capsule Take 0.4 mg by mouth 2 times a day. 01/13/2022 venlafaxine XR (EFFEXOR XR) 150 mg capsule Take 150 mg by mouth once a day. 07/17/2021 documented as of this encounter Plan of Treatment Upcoming Encounters Date Type Department Care Team (Late st Contact Info) Description 09/09/2024 1:00 PM EDT Appointment [facility] [address] [place] [address] 09/09/2024 1:45 PM EDT Appointment [facility] [address] [place] [address] 09/09/2024 2:30 PM EDT Appointment [facility] [address] [place] [address] 09/09/2024 3:30 PM EDT Follow-Up [facility] [address] [place] [address] Septic Cleaner: Raman Scruggs NP [address] [place] [address] documented as of this encounter Procedures * Due to [facility] law, this organization might not be sharing negative HIV tests. Procedure Name Priority Date/Time Associated Diagnosis Comments LOWER LIMB ARTERIAL DUPLEX, COMPLETE BILATERAL Routine 03/11/2024 1:01 PM EST Aftercare following surgery of the circulatory system Peripheral arterial disease (HCC) documented in this encounter Results * Due to [facility] law, this organization might not be sharing negative HIV tests. * LOWER LIMB ARTERIAL DUPLEX, COMPLETE BILATERAL (03/11/2024 1:01 PM EST) PSV Popliteal Distal Arterial Left 118 cm/s EDV Popliteal Distal Arterial Left 21.2 cm/s PSV Popliteal Proximal Arterial Left 130 cm/s EDV Popliteal Proximal Arterial Left 26.7 cm/s PSV Popliteal Distal Arterial Right 60.4 cm/s PSV Popliteal Proximal Arterial Right 86.4 cm/s PSV Superficial Femoral Distal Arterial Right 87.6 cm/s EDV Superficial Femoral Middle Arterial Left 27.4 cm/s PSV Superficial Femoral Middle Arterial Right 122 cm/s PSV Profunda Femoris Proximal Arterial Left 99.4 cm/s PSV Profunda Femoris Proximal Arterial Right 156 cm/s PSV Popliteal Middle Arterial Left 68.3 cm/s EDV Popliteal Middle Arterial Left 16.7 cm/s PSV Popliteal Middle Arterial Right 59 cm/s PSV Common Femoral Distal Arterial Left 99.4 cm/s EDV Common Femoral Distal Arterial Left 6 cm/s PSV Common Femoral Distal Arterial Right 177 cm/s PSV Superficial Femoral Proximal Arterial Left 134 cm/s EDV Superficial Femoral Proximal Arterial Left 16.5 cm/s PSV Superficial Femoral Proximal Arterial Right 169 cm/s EDV Superficial Femoral Proximal Arterial Right 17.4 cm/s PSV Common Femoral Proximal Arterial Left 111 cm/s EDV Common Femoral Proximal Arterial Left 14.7 cm/s PSV Common Femoral Proximal Arterial Right 132 cm/s EDV Common Femoral Proximal Arterial Right 0.00 cm/s EDV Common Femoral Distal Arterial Right 0.00 cm/s EDV Profunda Femoris Proximal Arterial Right 0.00 cm/s EDV Superficial Femoral Middle Arterial Right 0.00 cm/s EDV Superficial Femoral Distal Arterial Right 0.00 cm/s EDV Popliteal Proximal Arterial Right 0.00 cm/s EDV Popliteal Middle Arterial Right 0.00 cm/s EDV Popliteal Distal Arterial Right 0.00 cm/s EDV Profunda Femoris Proximal Arterial Left 0.00 cm/s PSV Superficial Femoral Middle Arterial Left 230.00 cm/s PSV Superficial Femoral Distal Arterial Left 106.00 cm/s EDV Superficial Femoral Distal Arterial Left 14.00 cm/s Anatomical Region Laterality Modality Lower Extremities Ultrasound Narrative 03/12/2024 2:49 PM EST ?The right common femoral artery, proximal profunda femoris artery, superficial femoral artery, and popliteal artery were widely patent with no evidence of hemodynamically significant stenosis. ?The left common femoral artery, proximal profunda femoris artery, superficial femoral artery, and popliteal artery were widely patent with no evidence of hemodynamically significant stenosis. ?The bilateral superficial femoral artery stents were not appreciated due to technical limitations. This was a technically limited test due to body habitus and calcification with acoustic shadowing. When compared to the study dated 09/04/2023, the previously identified short segment occlusion of the left proximal superficial femoral artery was not appreciated. 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 L SFA stent (2021), L ASIM stent (2023) Lower Arterial - Right (Duplex) Right Common Femoral Artery, Proximal: patent Right Common Femoral Artery, Distal: patent Right Profunda Femoral Artery, Proximal: patent Right Superficial Femoral Artery, Proximal: patent Right Superficial Femoral Artery, Mid: patent Right Superficial Femoral Artery, Distal: patent Right Popliteal, Proximal: patent Right Popliteal, Mid: patent Right Popliteal, Distal: patent Lower Arterial - Left (Duplex) Left Common Femoral Artery, Proximal: patent Left Common Femoral Artery, Distal: patent Left Profunda Femoral Artery, Proximal: patent Left Superficial Femoral Artery, Proximal: patent Left Superficial Femoral Artery, Mid: patent Left Superficial Femoral Artery, Distal: patent Left Popliteal Artery, Proximal: patent Left Popliteal Artery, Distal: patent Denton Palacios MD CV VASCULAR PROCEDURES Fi nal Result documented in this encounter Visit Diagnoses Diagnosis Aftercare following surgery of the circulatory system Aftercare following surgery of the circulatory system, NEC Peripheral arterial disease (HCC) Unspecified peripheral vascular disease documented in this encounter Care Teams Tool And Die Manager Relationship Specialty Start Date End Date Jas Casarez [address] [place] [address] PCP - General 07/19/21 documented as of this encounter
--- OUTSIDE RECORDS SUMMARY | 2024-04-07 15:50 | XMS_ITS | Clinical Summary ---
Author Organization [facility] Address [address] [place] [address] Care Team Providers Care Retail Tire Sales Manager Name Role Phone MohamudJas villegas Moy Primary Care Provider Allergies Active Allergy Reactions Criticality Noted Date Comments Methadone Vomiting 08/02/2021 Nsaids (Non-Steroidal Anti-I nflammatory Drug) Unknown 08/02/2021 Medications folic acid (FOLVITE) 1 mg tablet Take 3,000 mcg by mouth once a day. 2 Active cholecalciferol (VITAMIN D3) 2,000 unit capsule Take 2,000 Units by mouth once a day. 2 Active venlafaxine XR (EFFEXOR XR) 150 mg capsule Take 150 mg by mouth once a day. 2 Active aspirin 81 mg EC tablet Take 81 mg by mouth once a day. 2 Active pravastatin (PRAVACHOL) 40 mg tablet Take 40 mg by mouth once a day. 2 Active acetaminophen-c odeine (TYLENOL #3) 300-30 mg tablet Take 1 tablet by mouth 4 times a day as needed for pain. 2 Active tamsulosin (FLOMAX) 0.4 mg capsule Take 0.4 mg by mouth 2 times a day. 2 Active rOPINIRole (REQUIP) 0.5 mg tablet Take 0.5 mg by mouth nightly. 1-3 hours before bedtime 2 Active olopatadine (PATANOL) 0.1 % ophthalmic solution Instill 1 drop into both eyes 2 times a day as needed. 2 Active metoprolol succinate XL (TOPROL XL) 50 mg tablet Take 25 mg by mouth once a day. 2 Active ketoconazole (NIZORAL) 2% shampoo Apply topically to the affected area 2 times a week. 2 Active EPINEPHrine (EPIPEN) 0.3 mg/0.3 mL injection syringe Inject 0.3 mg into the outer thigh muscle as directed as needed for anaphylaxis. 2 Active oxybutynin XL (DITROPAN XL) 10 mg tablet Take 10 mg by mouth once a day. 3 Active bethanechol (URECHOLINE) 50 mg tablet Take 50 mg by mouth nightly. Active diclofenac (VOLTAREN) 1% gel Apply topically to the affected area 4 times a day as needed (pain). Active predniSONE (DELTASONE) 10 mg tablet Take 10 mg by mouth once a day. Active clopidogreL (PLAVIX) 75 mg tabletIndicatio ns:peripheral stent Take 1 tablet (75 mg total) by mouth once a day Indications: peripheral stent. 30 tablet 2 4 Active Additional Information Patient not taking.Reported on 03/11/2024 doxycycline hyclate (VIBRAMYCIN) 100 mg capsule Take 100 mg by mouth 2 times a day. For 7 days Active alpha lipoic acid 600 mg capsule Take 600 mg by mouth once a day. Active sarilumab (Kevzara) 200 mg/1.14 mL pen injector Inject 200 mg under the skin every 14 days. Active naloxone HCl (NARCAN) 4 mg/actuation nasal spray Administer 4 mg into affected nostril(s). Instill the contents of 1 unit intranasally for suspected opioid overdose. Repeat after 3 minutes if no or minimal response. Active metFORMIN ER (GLUCOPHAGE XR) 500 mg tablet Take 500 mg by mouth 2 times a day with meals. Active semaglutide (Ozempic) 0.25 mg or 0.5 mg (2 mg/3 mL) pen injector Inject 0.5 mg under the skin per week. Active HYDROmorphone (DILAUDID) 2 mg tablet Take 1 mg by mouth every 6 hours as needed for pain. Active methotrexate (TREXALL) 2.5 mg tablet Take 6 tablets (15 mg total) by mouth once a week. You may restart taking this on 12/05/23 4 Active Additional Information Patient not taking.Reported on 03/11/2024 docusate sodium (COLACE) 100 mg capsule Take 1 capsule (100 mg total) by mouth 2 times a day for 7 days. 14 capsule 4 Active Additional Information Patient not taking.Reported on 03/11/2024 senna (SENOKOT) 8.6 mg tablet Take 1 tablet (8.6 mg total) by mouth 2 times a day for 7 days. 14 tablet 4 Active Additional Information Patient not taking.Reported on 03/11/2024 Eliquis 5 mg tablet SMARTSI Tablet(s) By Mouth Twice Daily Active dilTIAZem CD (CARDIZEM CD) 120 mg 24 hr capsule SMARTSI Capsule(s) By Mouth Daily 4 Active Active Problems Problem Noted Date Diagnosed Date Aftercare following surgery of the circulatory s ystem 03/11/2024 Amputation of left great toe 11/23/2023 Atherosclerosis of arteries 11/23/2023 Lower limb ischemia 11/09/2023 Peripheral arterial disease 08/02/2021 Assessment & Plan (08/02/2021 7:33 PM EDT): Mr. Lino Nayak is a 66-year-old male with a past medical history of PMR, TIIDM, obesity, RA, peripheral vascular disease who presents with complaints of intermittent short distance claudication status post prior endovascular attempt at revascularization at OSH. Patient with ABIs that are noncompressible bilaterally however due to the patient's history of diabetes it is possible that these values are falsely elevated. However, he did have significantly decreased toe pressures suggesting possible intrinsic foot disease. We discussed options for revascularization moving forward endovascular versus bypass surgery with plans for LLE angiogram. The risks and benefits of the procedure were described. Patient gave consent to proceed with planning for LLE peripheral angiogram. Resolved Problems Problem Noted Date Diagnosed Date Resolved Date Atherosclerosis of [place] of extremities with gangrene, left leg 11/21/202311/04 Encounters Date Type Department Care Team Description 03/11/2024 2:00 PM EST Follow-Up [facility] Vascular Surgery [address] [place] [id number] Technician Anatomic Pathology: Denton Zuniga MD Smith, Jeffrey, NP Aftercare following surgery of the circulatory system (Primary Dx) 03/11/2024 11:20 AM EST - 03/11/2024 11:59 PM EST Hospital Encounter [facility] [address] [place] [id number] Denton Palacios MD Aftercare following surgery of the circulatory system; Peripheral arterial disease (HCC) Discharge Disposition: Home or Self Care () 03/11/2024 11:20 AM EST - 03/11/2024 11:59 PM EST Hospital Encounter [facility] [address] [place] [address] Denton Palacios MD Aftercare following surgery of the circulatory system; Peripheral arterial disease (HCC) Discharge Disposition: Home or Self Care () 02/15/2024 1:30 PM EST Follow-Up [facility] Vascular Surgery [address] [place] [address] Technician Anatomic Pathology: Raman Scruggs NP Amputation of left great toe (HCC) (Primary Dx) 02/04/2024 Telephone [facility] Vascular Surgery [address] [place] [address] Technician Anatomic Pathology: Denton Zuniga MD 01/08/2024 3:00 PM EST Follow-Up [facility] Vascular Surgery [address] [place] [address] Technician Anatomic Pathology: Denton Zuniga MD Lower limb ischemia (Primary Dx); Amputation of left great toe (HCC) from Last 3 Months Immunizations Name Administration Dates Next Due Influenza, Trivalent, Adjuva nted, PF 11/23/2023(Deferred: Patient Refused - defer outpatient) Family History Medical History Relation Name Comments Heart disease Father angina Stroke Mother Relation Name Status Comments Father Mother Social History Tobacco Use Types Packs/Day Years Used Date Smoking Tobacco: Former Cigarettes 1.5 25 1 974 - 1998 Smokeless Tobacco: Former Snuff, Chew Quit: 07/03/2021 Tobacco Cessation:Counseling Given: Not Answered Alcohol Use Standard Drinks/Week Comments Not Currently 0 (1 standard drink = 0.6 oz pure alcohol) none for last month and a half, previously drank 9 drinks per week [facility] Utilities Answer Date Recorded In the [...] Orientation Straight 09/07/2021 2: 22 PM EDT Last Filed Vital Signs Vital Sign Reading Time Taken Comments Blood Pressure 131/83 03/11/2024 1:11 PM EST Pulse 68 03/11/2024 1:11 PM EST Temperature 36.7 ??C (98.1 ??F) 03/11/2024 1:11 PM ES T Respiratory Rate 18 03/11/2024 1:11 PM EST Oxygen Saturation 97% 03/11/2024 1:11 PM EST Inhaled Oxygen Concentration - - Weight 126.6 kg (279 lb) 03/11/2024 1:11 PM EST Height 175.3 cm (5' 9 ) 03/11/2024 1:11 PM EST Body Mass Index 41.2 03/11/2024 1:11 PM EST Plan of Treatment Upcoming Encounters Date Type Department Care Team (Late st Contact Info) Description 09/09/2024 1:00 PM EDT Appointment [facility] Vascular Lab [address] [place] [address] 09/09/2024 1:45 PM EDT Appointment [facility]ascular Lab [address] [place] [address] 09/09/2024 2:30 PM EDT Appointment [facility]ascular Lab [address] [place] [address] 09/09/2024 3:30 PM EDT Follow-Up [facility] Building Vascular Surgery [address] [place] [address] Technician Anatomic Pathology: Raman Scruggs NP [address] [place] [address] Health Maintenance Due Date Last Done Comments Cologuard 1955 Colon Cancer Screening 1955 Colonoscopy 1955 FOBT / Fit Test 1955 Hepatitis C Screening 1955 Sigmoidoscopy 1955 Zoster Vaccines (1 of 2) 2003 RSV Vaccine (60+ years old and patients) (1 - Risk 60-74 years 1-dose series) 2013 DTaP,Tdap,and Td Vaccines (1 - Tdap) 11/28/2014 11/27/2014 Abdominal Aortic Aneurysm (AAA) Screening 2018 Pneumococcal Vaccine: 65+ Years (2 of 2 - PPSV23 or PCV20) 12/23/2019 12/22/2018 COVID-19 Vaccine ( - season) 2023 03/10/2021, 10/27/2020, 10/06/2020 Influenza Vaccine (#1) 2023 , 12/22/2018, 12/12/2017, Additional history exists Alcohol/Substance Use Screening 03/05/2024 Depression Screening and Follow-Up 03/05/2024 Health Care Proxy Review 03/05/2024 Social Drivers of Health Annual Screening 03/05/2024 11/22/2023 Hepatitis B Vaccines Aged Out No long er eligible based on patient's age to complete this topic Medical Devices Implanted Type Area Manager Case Management Device Identifier Shelf Expiration Date Model / Serial / Lot System Closure And Repair Suture-Mediate d Perclose Prostyle - [id number] Implanted:Qty: 1 on 08/09/2021 by Denton Palacios MD at [facility] Implant Left: Leg [employer] 01/02/2023 [id number] / / System Closure And Repair Suture-Mediate d Perclose Prostyle - S0 - [id number] Implanted:Qty: 1 on 09/13/2021 by Denton Palacios MD at [facility] Implant Left: Leg [employer] [id number] 07/03/2023 [id number] / 0 / [id number] System Closure And Repair Suture-Mediate d Perclose Prostyle - S0 - [id number] Implanted:Qty: 1 on 11/13/2023 by Denton Palacios MD at [facility] Implant N/A: Groin [employer] [id number] 09/01/2025 [id number] / 0 / [id number] Patch Pericardium Bovine .[id number] Photofix - [id number] Implanted:Qty: 1 on 11/21/2023 by Denton Palacios MD at [facility] Implant Left: Arterial [employer] 06/08/2025 PFP0.8X8 / / [id number] Patch Pericardium Bovine .[id number] Photofix - [id number] Implanted:Qty: 1 on 11/21/2023 by Denton Palacios MD at [facility] Implant Left: Arterial [employer] 05/11/2025 PFP0.8X8 / / [id number] Stent System Vascular 7.8s940sx BiomimKingspoke 3d - S0 - [id number] Implanted:Qty: 1 on 08/09/2021 by Denton Palacios MD at [facility] Stent Left: Leg [employer] [id number] 10/21/2022 [id number] -1 1 / 0 / [id number] Stent System Vascular 6.3i062kr BiomimKingspoke 3d - S0 - [id number] Implanted:Qty: 1 on 09/13/2021 by Denton Palacios MD at [facility] Stent Right: Leg [employer] [id number] 02/09/2023 [id number] -1 0 / 0 / [id number] Stent Icast Covered [id number] - [id number] - [id number] Implanted:Qty: 1 on 11/13/2023 by Denton Palacios MD at [facility] Stent Left: Arterial FieldLens [facility] [id number] 12/13/2025 [id number] / [id number] / Procedures * Due to [employer] law, this organization might not be sharing negative HIV tests. Procedure Name Priority Date/Time Associated Diagnosis Comments LOWER LIMB ARTERIAL DUPLEX, COMPLETE BILATERAL Routine 03/11/2024 1:01 PM EST Aftercare following surgery of the circulatory system Peripheral arterial disease (HCC) TOES PRESSURES AND WAVEFORM ANALYSIS Routine 03/11/2024 12:54 PM EST Aftercare following surgery of the circulatory system Peripheral arterial disease (HCC) XR FOOT 3+ VW LEFT Routine 02/15/2024 2: 04 PM EST Amputation of left great toe (HCC) from Last 3 Months Results * Due to [employer] law, this organization might not be sharing [...] Proximal: patent Left Popliteal Artery, Distal: patent us Denton Palacios MD CV VASCULAR PROCEDURES Fi nal Result * Toes Pressures and Waveform Analysis (03/11/2024 12:54 PM EST) Pressure Brachial Right 166 mmHg Pressure Toe 1 Right 72 mmHg Index Toe 1 Right 0.42 Pressure Brachial Left 173 mmHg Pressure 2 Toe Left 62 mmHg Index Toe 2 Left 0.36 Pressure Brachial all 173.00 mmHg Anatomical Region Laterality Modality Vascular Ultrasound Narrative 03/12/2024 2:49 PM EST ?The right toe/brachial index and absolute toe pressure were consistent with peripheral arterial disease when correlated with relevant clinical symptoms. ?The left toe/brachial index and absolute toe pressure were consistent with peripheral arterial disease when correlated with relevant clinical symptoms. When compared to the study dated 11/20/2023, the right toe pressure has increased from 53 mmHg (TBI 0.37) to 72 mmHg (TBI 0.42). The left toe pressure was previously obtained from the great toe, which was amputated 11/21/2023. DIGITAL PRESSURES AND WAVEFORM ANALYSIS Right Lower Extremity: Doppler waveform: abnormal Left Lower Extremity: Doppler waveform: abnormal 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 L SFA stent (2021), L ASIM stent (2023) L second toe wound us Denton Palacios MD CV VASCULAR PROCEDURES Fi nal Result * X-Ray Foot Left 3+ Views (02/15/2024 2:04 PM EST) Anatomical Region Laterality Modality Lower Extremities, Foot Left Computed Radiography 02/18/2024 6:36 PM EST Impressions 02/18/2024 6:39 PM EST FINDINGS/IMPRESSION: Prior amputation of the great toe at the level of the first metatarsal distal diaphysis. There is mild osseous irregularity involving the amputation margins, for which erosion secondary to osteomyelitis cannot be excluded. MRI may provide more optimal assessment. Superimposed mild periosteal bone formation along the distal aspect of the metatarsal. There is lateral dislocation of the second metatarsophalangeal joint. No radiographic evidence of acute displaced fracture. 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 Small calcaneal spurs. Vascular atherosclerotic calcifications. A(n) Yellow actionable finding has been communicated to the ordering or responsible provider via the JAYS system on 02/18/2024 6:39 PM. ??Receipt of this communication by the responsible provider will be documented in JAYS upon receiving acknowledgement if applicable, Message ID [id number]. If this radiology report contains a blank impression section, it is an incomplete radiology report. ??Please contact the interpreting radiologist or applicable radiology division as soon as possible to obtain the completed interpretation. ? Workstation ID: [id number] Narrative 02/18/2024 6:39 PM EST COMPARISON: There are no prior studies available for comparison at this time. Resulting Agency Comment [id number] Procedure Note Donato Torres MD - 02/18/2024 COMPARISON: There are no prior studies available for comparison at thistime. IMPRESSION: FINDINGS/IMPRESSION: Prior amputation of the great toe at the level of the first metatarsaldistal diaphysis. There is mild osseous irregularity involving theamputation margins, for which erosion secondary to osteomyelitis cannot beexcluded. MRI may provide more optimal assessment. Superimposed mildperiosteal bone formation along the distal aspect of the metatarsal. There is lateral dislocation of the second metatarsophalangeal joint. No radiographic evidence of acute displaced fracture. Congenitalnonsegmentation of the fifth distal interphalangeal joint. Small calcanealspurs. Vascular atherosclerotic calcifications. A(n) Yellow actionable finding has been communicated to the ordering orresponsible provider via the JAYS system on02/18/2024 6:39 PM. Receipt of this communication by the responsibleprovider will be documented in JAYS uponreceiving acknowledgement if applicable, Message ID [id number]. If this radiology report contains a blank impression section, it is anincomplete radiology report. Please contact the interpreting radiologistor applicable radiology division as soon as possible to obtain thecompleted interpretation. Workstation ID: [id number] Raman Lin NP IMG XR PROCEDURES Edited Result - Final from Last 3 Months Insurance [employer] M[employer] REPLACE PPO Advance Directives * Full Code (Latest Code Status on File) Date Activated Date Inactivated Comments 11/21/2023 3:39 PM 11/23/2023 6:01 PM * Full Code Date Activated Date Inactivated Comments 11/13/2023 7:45 AM 11/13/2023 3:15 PM * Full Code Date Activated Date Inactivated Comments 09/13/2021 9:31 AM 09/13/2021 2:20 PM * Full Code Date Activated Date Inactivated Comments 09/13/2021 7:38 AM 09/13/2021 9:31 AM * Full Code Date Activated Date Inactivated Comments 09/06/2021 8:48 AM 09/06/2021 4:36 PM Care Teams Retail Tire Sales Manager Relationship Specialty Start Date End Date Jas Casarez [address] [place] [address] PCP - General 07/19/21
--- OUTSIDE RECORDS SUMMARY | 2024-04-07 15:50 | XMS_ITS | Encounter Summary ---
Author Organization [facility] Address [address] [place] [address] Care Team Providers Care Manager Environmental Health Name Role Phone Jas Casarez Moy Primary Care Provider [phone] Encounter Details Date Type Department Care Team (Late st Contact Info) Description 03/11/2024 11:20 AM EST - 03/11/2024 11:59 PM [facility] Hospital Encounter [facility] Vascular Lab [address] [place], [place] [phone] Denton Palacios MD [address] [place] [address] Aftercare following surgery of the circulatory system; [...] half, previously drank 9 drinks per week [facility] Utilities Answer Date Recorded In the [...] Info) Description 09/09/2024 1:00 PM EDT Appointment [facility] Lab [address] [place] [address] 09/09/2024 1:45 PM EDT Appointment [facility] [address] [place] [address] 09/09/2024 2:30 PM EDT Appointment [facility] [address] [place] [address] 09/09/2024 3:30 PM EDT Follow-Up [facility] Building Vascular Surgery [address] [place] [address] Emu Farmer: Raman Scruggs NP [address] [place] [address] documented as of this encounter Procedures * Due to [facility] law, this organization might not be sharing negative HIV tests. Procedure Name Priority Date/Time Associated Diagnosis Comments TOES PRESSURES AND WAVEFORM ANALYSIS Routine 03/11/2024 12:54 PM EST Aftercare following surgery of the circulatory system Peripheral arterial disease (HCC) documented in this encounter Results * Due to [facility] law, this organization might not be sharing negative HIV tests. * Toes Pressures and Waveform Analysis (03/11/2024 [...] disease documented in this encounter Care Teams Manager Environmental Health Relationship Specialty Start Date End Date Jas Casarez [address] [place] [address] PCP - General 07/19/21 documented as of this encounter
--- OUTSIDE RECORDS SUMMARY | 2024-04-07 15:50 | XMS_ITS | Referral Summary ---
Author Organization [facility] Address [address] [place] [address] Care Team Providers Care Java Swing Developer Name Role Phone Jas Casarez Primary Care Provider Encounters Date Type Department Care Team Description 03/11/2024 2:00 PM EST Follow-Up [facility] ACC Building Vascular Surgery [address] [place] [address] Research Director: Denton Zuniga MD Smith, Jeffrey, NP Aftercare following surgery of the circulatory system (Primary Dx) 03/11/2024 11:20 AM EST - 03/11/2024 11:59 PM EST Hospital Encounter [facility] ACC Vascular Lab [address] [place] [address] Denton Palacios MD Aftercare following surgery of the circulatory system; Peripheral arterial disease (HCC) Discharge Disposition: Home or Self Care () 03/11/2024 11:20 AM EST - 03/11/2024 11:59 PM EST Hospital Encounter [facility] ACC Vascular Lab [address] [place] [address] Denton Palacios MD Aftercare following surgery of the circulatory system; Peripheral arterial disease (HCC) Discharge Disposition: Home or Self Care () 02/15/2024 1:30 PM EST Follow-Up [facility] Vascular Surgery [address] [place] [address] Research Director: Raman Scruggs NP Amputation of left great toe (HCC) (Primary Dx) 02/04/2024 Telephone [facility] Vascular Surgery [address] [place] [address] Research Director: Denton Zuniga MD 01/08/2024 3:00 PM EST Follow-Up [facility] Vascular Surgery [address] [place] [address] Research Director: Denton Zuniga MD Lower limb ischemia (Primary Dx); Amputation of left great toe (HCC) from Last 3 Months Allergies Active Allergy Reactions Criticality Noted Date [...] Date Diagnosed Date Resolved Date Atherosclerosis of [place]ies of extremities with gangrene, left leg 11/21/202311/04 Immunizations Name Administration Dates Next Due Influenza, Trivalent, Adjuva nted, PF 11/23/2023(Deferred: Patient Refused - defer outpatient) Social History Tobacco Use Types Packs/Day Years Used Date Smoking Tobacco: Former Cigarettes 1.5 25 1 974 - 1998 Smokeless Tobacco: Former Snuff, Chew Quit: 07/03/2021 Tobacco Cessation:Counseling Given: Not Answered Alcohol Use Standard Drinks/Week Comments Not Currently 0 (1 standard drink = 0.6 oz pure alcohol) none for last month and a half, previously drank 9 drinks per week [facility] Utilities Answer Date Recorded In the past 12 months has th e [employer], gas, oil, or water [employer] threatened to shut off services in your [...] Info) Description 09/09/2024 1:00 PM EDT Appointment [facility] ACC Vascular Lab [address] [place] [address] 09/09/2024 1:45 PM EDT Appointment [facility] ACC Vascular Lab [address] [place] [address] 09/09/2024 2:30 PM EDT Appointment [facility] ACC Vascular Lab [address] [place] [address] 09/09/2024 3:30 PM EDT Follow-Up [facility] ACC Building Vascular Surgery [address] [place] [address] Research Director: Raman Scruggs NP [address] [place] [address] Medical Devices Implanted Type Area Evp [employer] Experience Strategy Device Identifier Shelf Expiration Date Model / Serial / Lot System Closure And Repair Suture-Mediate d Perclose Prostyle - [id number] Implanted:Qty: 1 on 08/09/2021 by Denton Palacios MD at [facility] Implant Left: Leg [employer] 01/02/2023 [id number] / / System Closure And Repair Suture-Mediate d Perclose Prostyle - S0 - [id number] Implanted:Qty: 1 on 09/13/2021 by Denton Palacios MD at [facility] Implant Left: Leg [employer] [id number] 07/03/2023 [id number] / 0 / [id number] System Closure And Repair Suture-Mediate d Perclose Prostyle - S0 - [id number] Implanted:Qty: 1 on 11/13/2023 by Denton Palacios MD at [facility] Implant N/A: Groin [employer] [id number] 09/01/2025 [id number] / 0 / [id number] Patch Pericardium Bovine .9qse6ae Photofix - [id number] Implanted:Qty: 1 on 11/21/2023 by Denton Palacios MD at [facility] Implant Left: Arterial [employer] 06/08/2025 PFP0.8X8 / / [id number] Patch Pericardium Bovine .8yob1wg Photofix - [id number] Implanted:Qty: 1 on 11/21/2023 by Denton Palacios MD at [facility] Implant Left: Arterial [employer] 05/11/2025 PFP0.8X8 / / [id number] Stent System Vascular [id number] Biomim[employer] Reality 3d - S0 - [id number] Implanted:Qty: 1 on 08/09/2021 by Denton Palacios MD at [facility] Stent Left: Leg [facility] [id number] 10/21/2022 334340 -1 1 / 0 / [id number] Stent System Vascular 6.1r463uu HistoryFile 3d - S0 - [id number] Implanted:Qty: 1 on 09/13/2021 by Denton Palacios MD at [facility] Stent Right: Leg [facility] [id number] 02/09/2023 [id number] -1 0 / 0 / [id number] Stent Icast Covered [id number] - [id number] - [id number] Implanted:Qty: 1 on 11/13/2023 by Denton Palacios MD at [facility] Stent Left: Arterial [employer] [facility] [id number] 12/13/2025 [id number] / [id number] / Procedures * Due to [place] state law, this organization might not be sharing [...] Last 3 Months Results * Due to [place] state law, this organization might not be sharing [...] the ordering or responsible provider via the [employer] system on 02/18/2024 6:39 PM. ??Receipt of this communication by the responsible provider will be documented in [employer] upon receiving acknowledgement if applicable, Message ID [id number]. If this radiology report contains a blank impression section, it is an incomplete radiology report. ??Please contact the interpreting radiologist or applicable radiology division as soon as possible to obtain the completed interpretation. ? Workstation ID: [id number] Narrative 02/18/2024 6:39 PM EST COMPARISON: There are no prior studies available for comparison at this time. Resulting Agency Comment [id number] Procedure Note Donato Torres MD - 02/18/2024 [...] to the ordering orresponsible provider via the [employer] system on02/18/2024 6:39 PM. Receipt of this communication by the responsibleprovider will be documented in [employer] uponreceiving acknowledgement if applicable, Message ID [id number]. If this radiology report contains a blank impression section, it is anincomplete radiology report. Please contact the interpreting radiologistor applicable radiology division as soon as possible to obtain thecompleted interpretation. Workstation ID: [id number] Raman Lin AUTO BODY PAINTER IMG XR PROCEDURES Edited Result - Final [...] 8:48 AM 09/06/2021 4:36 PM Care Teams Java Swing Developer Relationship Specialty Start Date End Date Jas Casarez [address] [place] [address] PCP - General 07/19/21
--- OUTSIDE RECORDS SUMMARY | 2024-04-07 15:50 | XMS_ITS | Encounter Summary ---
Author Organization [facility] Address [address] [place] [address] Care Team Providers Care Advertising Account Executive Name Role Phone Jas Casarez Primary Care Provider [phone] Reason for Visit * Consultation (Routine) - Authorized Specialty Diagnoses / Procedures Referred By Soni atkins Referred To Contact Vascular Surgery Diagnoses 1 week IP F/U Procedures FOLLOW UP Jas Casarez [address] [place] [address] Phone: tel: fax: Fely Freeman NP [address] [place] [address] Phone: tel: fax: Referral ID Status Reason Start Date Expiration Date V isits Requested Visits Authorized [id number] Authorized 11/29/2023 05/30/2025 6 6 Encounter Details Date Type Department Care Team (Late st Contact Info) Description 03/11/2024 2:00 PM EST Follow-Up [facility] Vascular Surgery [address] [place] [address] Crew Director: Denton Zuniga MD [address] [place] [phone] Raman Lin NP [address] [place] [phone] Aftercare following surgery of the circulatory system (Primary Dx) Social History Tobacco Use Types Packs/Day Years Used Date Smoking Tobacco: Former Cigarettes 1.5 25 1 974 - 1998 Smokeless Tobacco: Former Snuff, Chew Quit: 07/03/2021 Alcohol Use Standard Drinks/Week Comments Not Currently 0 (1 standard drink = 0.6 oz pure alcohol) none for last month and a half, previously drank 9 drinks per week [facility] Utilities Answer Date Recorded In the past 12 months has th e electric, gas, oil, or water [employer] threatened to shut off services in your [...] PM EDT documented as of this encounter Last Filed Vital Signs Vital Sign Reading [...] Mass Index 41.2 03/11/2024 1:11 PM EST documented in this encounter Progress Notes * Raman Lin NP - 03/11/2024 1:42 PM EST Subsequent vascular surgery visit Note 03/11/2024 LINO OLIVEIRA [id number] Attending::Sid Palacios MD Subjective Chief Complaint: Follow up s/p L FEA with left great toe amputation on 11/21/[address] Palacios History of present illness: Titus Oliveira is a 68 yo male who comes to clinic for a follow up. PMH significant for HTN, HLD, BPH, PMR, T2DM, morbid obesity, adrenal insufficiency (on chronic steroids),MAGDALENA, CAD, PAD s/p R SFA stent (09/13/2021; Suzanne), L SFA stent (08/09/2021; Suzanne), L ASIM stent (11/13/2023; Suzanne). He presented with worsening LLE claudication and left great toe gangrene ultimately requiring a L FEA with left great toe amputation which was performed on 11/21/[address] Palacios. Unfortunately his left great toe incision dehisced and he had some delayed wound healing. He also recently had a bout of a-fib and was placed on anticoagulation in place of his plavix. He is on aspirin, Eliquis 5mg, and a statin. He was doing daily dressing changes with with the assistance of his . He is followed by a pre billing specialist in [place] (Dr. Bryanna Garcia of [facility]) and was using Medihoney on the openwound on his second toe. He saw his pre billing specialist yesterday who did suture his dorsal left second toe and placed a dressing to be left in place for a week until follow-up. He notes that all of his otherwounds to his left foot have healed up including his great toe tuft and plantar second toe. He notes that all of his other foot wounds have healed. An xray was performed at our last visit andhis pre billing specialist did not feel there was any concerns for osteo at this time so no further intervention or antibiotics were recommended. He has no significant pain due to neuropathy. He denies any claudication-like symptoms, rest pain, night pain. Denies any fevers or chills. Denies any N/V/D. Past Medical History: Diagnosis Date Adrenal insufficiency (Mukilteo's disease) ([facility]) Benign prostatic hyperplasia Cataract monitoring Hyperlipidemia Hypertension Osteomyelitis ([facility]) left great toe, on abx Peripheral artery disease ([facility]) bilateral, s/p bilateral stenting Polymyalgia rheumatica (CMS/HCC) ([facility]) Sleep apnea uses CPAP Type 2 diabetes mellitus ([facility]) Checks BGs intermittently (run 100-120), A1C 6.1 Past Surgical History: Procedure Laterality Date BACK SURGERY 2018 for spinal stenosis, back stimulator implant CARDIAC CATHETERIZATION CARPAL TUNNEL RELEASE COLONOSCOPY INVASIVE VASCULAR PROCEDURE Left 08/09/2021 Procedure: Peripheral Angiogram with possible use of Moderate Sedation; Surgeon: Denton Palacios MD; Location: [facility] Heart Vasc Int Lab; Service: Invasive Vascular INVASIVE VASCULAR PROCEDURE Left 08/09/2021 Procedure: Peripheral Vascular Intervention (Possible); Surgeon: Denton Palacios MD; Location:[facility] Heart Vasc Int Lab; Service: Invasive Vascular INVASIVE VASCULAR PROCEDURE Right 09/06/2021 Procedure: Peripheral Angiogram with possible use of Moderate Sedation; Surgeon: Denton Palacios MD; Location: [facility] Heart Vasc Int Lab; Service: Invasive Vascular INVASIVE VASCULAR PROCEDURE Right 09/13/2021 Procedure: Peripheral Angiogram with possible use of Moderate Sedation; Surgeon: Denton Palacios MD; Location: [facility] Heart Vasc Int Lab; Service: Invasive Vascular INVASIVE VASCULAR PROCEDURE Right 09/13/2021 Procedure: Peripheral Vascular Intervention (Possible); Surgeon: Denton Palacios MD; Location:[facility] Heart Vasc Int Lab; Service: Invasive Vascular INVASIVE VASCULAR PROCEDURE Left 11/13/2023 Procedure: Peripheral Angiogram with possible use of Moderate Sedation; Surgeon: Denton Palacios MD; Location: [facility] Heart Vasc Int Lab; Service: Invasive Vascular INVASIVE VASCULAR PROCEDURE Left 11/13/2023 Procedure: Peripheral Vascular Intervention (Possible); Surgeon: Denton Palacios MD; Location:[facility] Heart Vasc Int Lab; Service: Invasive Vascular JOINT REPLACEMENT bilateral knee replacement UT AMPUTATION TOE,MT-P JT Left 11/21/2023 Procedure: AMPUTATION, TOE AND JOINT, METATARSOPHALANGEAL; Surgeon: Denton Palacios MD; Location: [facility] OR; Service: Vascular UT THROMBOENDARTECTMY SUPERFICIAL FEM ARTERY Left 11/21/2023 Procedure: SUPERFICIAL FEMORAL ENDARTERECTOMY; Surgeon: Denton Palacios MD; Location: [facility] OR; Service: Vascular Current Outpatient Medications on File Prior to Visit Medication Sig Dispense Refill acetaminophen-codeine (TYLENOL #3) 300-30 mg tablet Take 1 tablet by mouth 4 times a day as needed for pain. alpha lipoic acid 600 mg capsule Take 600 mg by mouth once a day. (Patient not taking: Reported on 03/11/2024) aspirin 81 mg EC tablet Take 81 mg by mouth once a day. bethanechol (URECHOLINE) 50 mg tablet Take 50 mg by mouth nightly. (Patient not taking: Reported on03/11/2024) cholecalciferol (VITAMIN D3) 2,000 unit capsule Take 2,000 Units by mouth once a day. clopidogreL (PLAVIX) 75 mg tablet Take 1 tablet (75 mg total) by mouth once a day Indications: peripheral stent. (Patient not taking: Reported on 03/11/2024) 30 tablet 2 diclofenac (VOLTAREN) 1% gel Apply topically to the affected area 4 times a day as needed (pain). dilTIAZem CD (CARDIZEM CD) 120 mg 24 hr capsule SMARTSI Capsule(s) By Mouth Daily docusate sodium (COLACE) 100 mg capsule Take 1 capsule (100 mg total) by mouth 2 times a day for 7 days. (Patient not taking: Reported on 03/11/2024) 14 capsule 0 doxycycline hyclate (VIBRAMYCIN) 100 mg capsule Take 100 mg by mouth 2 times a day. For 7 days (Patient not taking: Reported on 03/11/2024) Eliquis 5 mg tablet SMARTSI Tablet(s) By Mouth Twice Daily EPINEPHrine (EPIPEN) 0.3 mg/0.3 mL injection syringe Inject 0.3 mg into the outer thigh muscle as directed as needed for anaphylaxis. folic acid (FOLVITE) 1 mg tablet Take 3,000 mcg by mouth once a day. (Patient not taking: Reported on 03/11/2024) HYDROmorphone (DILAUDID) 2 mg tablet Take 1 mg by mouth every 6 hours as needed for pain. (Patient not taking: Reported on 03/11/2024) ketoconazole (NIZORAL) 2% shampoo Apply topically to the affected area 2 times a week. (Patient nottaking: Reported on 12/11/2023) metFORMIN ER (GLUCOPHAGE XR) 500 mg tablet Take 500 mg by mouth 2 times a day with meals. methotrexate (TREXALL) 2.5 mg tablet Take 6 tablets (15 mg total) by mouth once a week. You may restart taking this on 12/05/23 (Patient not taking: Reported on 03/11/2024) metoprolol succinate XL (TOPROL XL) 50 mg tablet Take 25 mg by mouth once a day. (Patient not taking: Reported on 03/11/2024) naloxone HCl (NARCAN) 4 mg/actuation nasal spray Administer 4 mg into affected nostril(s). Instill the contents of 1 unit intranasally for suspected opioid overdose. Repeat after 3 minutes if no or minimal response. olopatadine (PATANOL) 0.1 % ophthalmic solution Instill 1 drop into both eyes 2 times a day as needed. (Patient not taking: Reported on 12/11/2023) oxybutynin XL (DITROPAN XL) 10 mg tablet Take 10 mg by mouth once a day. pravastatin (PRAVACHOL) 40 mg tablet Take 40 mg by mouth once a day. predniSONE (DELTASONE) 10 mg tablet Take 10 mg by mouth once a day. rOPINIRole (REQUIP) 0.5 mg tablet Take 0.5 mg by mouth nightly. 1-3 hours before bedtime sarilumab (Kevzara) 200 mg/1.14 mL pen injector Inject 200 mg under the skin every 14 days. (Patient not taking: Reported on 03/11/2024) semaglutide (Ozempic) 0.25 mg or 0.5 mg (2 mg/3 mL) pen injector Inject 0.5 mg under the skin per week. senna (SENOKOT) 8.6 mg tablet Take 1 tablet (8.6 mg total) by mouth 2 times a day for 7 days. (Patient not taking: Reported on 03/11/2024) 14 tablet 0 tamsulosin (FLOMAX) 0.4 mg capsule Take 0.4 mg by mouth 2 times a day. venlafaxine XR (EFFEXOR XR) 150 mg capsule Take 150 mg by mouth once a day. No current facility-administered medications on file prior to visit. Allergies Allergen Reactions Methadone Vomiting Nsaids (Non-Steroidal Anti-Inflammatory Drug) Unknown Review of Systems Skin: Positive for poor wound healing. Objective Vitals: 03/11/24 1311 BP: 131/83 Pulse: 68 Resp: 18 Temp: 36.7 ??C (98.1 ??F) SpO2: 97% Physical Exam Constitutional: Appearance: Normal appearance. HENT: Head: Normocephalic and atraumatic. Nose: Nose normal. Mouth/Throat: Pharynx: Oropharynx is clear. Eyes: Extraocular Movements: Extraocular movements intact. Cardiovascular: Rate and Rhythm: Normal rate. Pulses: Femoral pulses are 2+ on the right side and 2+ on the left side. Dorsalis pedis pulses are 1+ on the right side and 2+ on the left side. Posterior tibial pulses are detected w/ Doppler on the right side and detected w/ Doppler on the left side. Comments: Biphasic right PT, triphasic left PT. Trace edema to LLE Pulmonary: Effort: Pulmonary effort is normal. Abdominal: Palpations: Abdomen is soft. Tenderness: There is no abdominal tenderness. Musculoskeletal: General: Normal range of motion. Cervical back: Normal range of motion and neck supple. Left lower leg: Edema present. Feet: Comments: Left dorsal second toe not assessed due to dressing. All other foot wounds healed. Skin: General: Skin is warm and dry. Neurological: General: No focal deficit present. Mental Status: He is alert and oriented to person, place, and time. Psychiatric: Mood and Affect: Mood normal. Behavior: Behavior normal. Prior Imaging & Non-Invasive Testing: Result Summary The right common femoral artery, proximal profunda femoris artery, superficial femoral artery, and popliteal artery were widely patent with no evidence of hemodynamically significant stenosis. The left common femoral artery, proximal profunda femoris artery, superficial femoral artery, and popliteal artery were widely patent with no evidence of hemodynamically significant stenosis. The bilateral superficial femoral artery stents were not appreciated due to technical limitations. This was a technically limited test due to body habitus and calcification with acoustic shadowing. When compared to the study dated 09/04/2023, the previously identified short segment occlusion of theleft proximal superficial femoral artery was not appreciated. Result Summary The right toe/brachial index and absolute toe pressure were consistent with peripheral arterial disease when correlated with relevant clinical symptoms. The left toe/brachial index and absolute toe pressure were consistent with peripheral arterial disease when correlated with relevant clinical symptoms. When compared to the study dated 11/20/2023, the right toe pressure has increased from 53 mmHg (TBI 0.37) to 72 mmHg (TBI 0.42). Assessment & Plan Problem List Items Addressed This Visit Other Aftercare following surgery of the circulatory system - Primary Relevant Orders Iliac Artery Duplex Lower Limb Arterial Duplex Toes Pressures and Waveform Analysis This is a 69 y.o. year old male with L FEA with left great toe amputation on 11/21/[address] Palacios comes to clinic for a follow up. He notes that all of his wounds have healed and his left dorsal second toe was sutured yesterday by his pre billing specialist Dr. Garcia. He denies any claudication-like symptoms. He does have neuropathy so very little discomfort in his wounds. He is compliant with his flatpostop shoe and should continue to utilize this and follow-up with his pre billing specialist for continued wound care. He does have palpable pulses bilaterally. Vascular studies today showed widely patent bilateral femoral arteries. He will continue on his aspirin, Eliquis, and statin as previously prescribed. He should continue to follow up with his pre billing specialist for continued wound care. He has had improvement on the left with an absolute toe pressure of 62 mmHg. Patient was seen in conjunction with Dr. Palacios. We will plan to see him back in 6 months with repeat vascular studies to image all of his stents and recheck lower extremity perfusion. He may call for any new or concerning symptoms. I have seen and evaluated Titus Oliveira and will be providing ongoing care and management for these medical conditions: PAD Follow up: Plan 1. Continue on Cardioprotective medications 2. Follow up in 6 months with repeat vascular studies 3. Continue to monitor for claudication-like symptoms, rest pain, night pain, fevers or chills, signs or symptoms of infection to left foot wounds, new wounds to right foot and seek sooner evaluation. Signature: Raman Lin NP Electronic Signature Portions of this note were done utilizing voice recognition software and may contain inadvertent errors. documented in this encounter Plan of Treatment Upcoming Encounters Date Type Department Care Team (Late st Contact Info) Description 09/09/2024 1:00 PM EDT Appointment [facility] ACC Vascular Lab [address] [place] [address] 09/09/2024 1:45 PM EDT Appointment [facility] ACC Vascular Lab [address] [place] [address] 09/09/2024 2:30 PM EDT Appointment [facility] ACC Vascular Lab [address] [place] [address] 09/09/2024 3:30 PM EDT Follow-Up [facility] ACC Building Vascular Surgery [address] [place] [address] Crew Director: Raman Scruggs NP [address] [place] [address] Scheduled Orders Name Type Priority Associated Diagnoses Orde r Schedule Iliac Artery Duplex Vascular Ultrasound Routine Aftercare following surgery of the circulatory system Expected: 09/08/2024, Expires: 03/11/2026 Lower Limb Arterial Duplex Vascular Ultrasound Routine Aftercare following surgery of the circulatory system Expected: 09/08/2024, Expires: 03/11/2026 Toes Pressures and Waveform Analysis Vascular Ultrasound Routine Aftercare following surgery of the circulatory system Expected: 09/08/2024, Expires: 03/11/2026 documented as of this encounter Visit Diagnoses Diagnosis Aftercare following surgery of the circulatory system- Primary Aftercare following surgery of the circulatory system, NEC documented in this encounter Care Teams Advertising Account Executive Relationship Specialty Start Date End Date Jas Casarez [address] [place] [address] PCP - General 07/19/21 documented as of this encounter
== END 2024-04-07 15:16 | disposition home or self-care (01) ==
PROVIDERS: PCP Nurse Practitioner Family; Visit Provider Nurse Practitioner Family
DX: Z13.9 Encounter for screening, unspecified (principal); E11.42 Type 2 diabetes mellitus with diabetic polyneuropathy

== ENCOUNTER → 2024-04-07 14:10 | Outpatient (BNVA) | payer MEDICARE, SELFPAY | PROVIDERS: PCP Nurse Practitioner Family; Visit Provider Nurse Practitioner Family | DX: E11.42 Type 2 diabetes mellitus with diabetic polyneuropathy (principal) | CPT/HCPCS: 83036; 96127; 99212 ==

== ENCOUNTER 2024-04-08 09:51 | Outpatient (AMB) | payer MEDICARE, SELFPAY ==
--- NOTE | 2024-04-08 09:52 | MHC.OFFVIS ---
Vital Signs 04/08/24 10:42 Height 5 ft 9 in Weight 276 lb 1 oz BMI 40.8 Intake Visit Reasons: Pill Count Intake Note: Lino comes in today for a pill count to acetaminophen-codeine, patient should have 0 tablets and presents with 6.5 tablets which he last took a few weeks ago. Pain today 010 Patient resigned opioid contract in office today, copy of signed contract was provided to patient. Patient will also go for a random UDS, aware that he will need to go to the lab on the first floor of this building today 04/08/24 before 12pm. Supervisor Carding Required: No Accompanied by: Spouse Allergies NSAIDS (Non-Steroidal Anti-Inflamma Allergy (Severe, Verified 04/07/24 14:16) Anaphylaxis methadone Allergy (Intermediate, Verified 04/07/24 14:16) Vomiting HPI Comments Details: Patient presents today for a pill count. He is supposed to have #0 pills, in his possession has #6.5 pills. This demonstrates a responsible attitude in regards to the medication regimen. He is considering taper off opioids and has not been taking any Tylenol #3 for few weeks. He continues to use SCS device with good relief. Patient has been on Ozempic since last year and has lost about 30 lbs and considers to discontinue this once he reaches his weight goal. Most recent A1C=6.5. He reports feeling better with weight loss. He has non-healing sore of the second toe on the left foot with yellow and brown granulation and has been applying Bacitracin topical with dry dressing. Patient has follow up with Podiatry on 04/22/24. Patient denies any fever, chills, abdominal dyspnea, constipation, nausea, sedation, dizziness, bowel/bladder dysfunction or saddle anesthesia. Past Procedures: 05/02/23: Lumbar SCS Implant with Nevro-100% pain relief back/hip, 50% pain relief bilateral feet 02/28/23: Lumbar SCS Trial with Nevro-100% pain relief 12/06/21-12/05/22: Qutenza every 3 months-minimal pain relief [facility] Medical History Amputation of left great toe Cellulitis Dry gangrene Spinal cord stimulator status Polymyalgia rheumatica PAD (peripheral artery disease) Ascending aorta dilatation Sleep apnea Type 2 diabetes mellitus with peripheral neuropathy Diabetes mellitus due to underlying condition with diabetic neuropathy, without long-term current use of insulin Arterial insufficiency Iatrogenic [place]'s disease Morbid obesity Atherosclerotic cardiovascular disease Diabetic neuropathy associated with type 2 diabetes mellitus 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 Seronegative rheumatoid arthritis Obesity (BMI 30-39.9) Vitamin D deficiency Diabetes type 2, controlled Osteopenia Adrenal 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 Painful total knee replacement, right Surgical History Status post amputation History of endarterectomy History of esophagogastroduodenoscopy (EGD) H/O colonoscopy Hx of coronary angiogram History of back surgery (~2018) History of knee replacement procedure of right knee History of knee replacement procedure of left knee Hx of cardiac cath Family History Father Angina pectoris Mother Stroke Social History Household Members: Spouse Housing: House Are you a primary adult daycare coordinator to a significant other at home: No Do you presently have visiting nurse or other home services: No 75 years or older and lives alone: No Alcohol intake: former Year quit: 2023 Patient Tobacco Use Status: Former Tobacco user Years Smoked: 20 years ago e-Cigarette/Vaping Use: Never Used Second Hand Smoke Exposure: No Substance Use Type: Marijuana service: No Current occupational status: retired Cognitive needs: No Hearing needs: No Vision needs: No Review of Systems Const All systems reviewed & are unremarkable except as noted in HPI and below Physical Exam General: Appears afebrile. Alert and oriented. Mood and affect appropriate. Follows and participates in conversation appropriately. Respiratory effort is unlabored. No cough. Able to transition from sit to stand unassisted. Ambulates with bilaterally normal heel strike and toe off. Back/Spine/Pelvis Cervical Spine: cervical ROM normal and No Cervical spine tenderness Thoracic/Lumbar Spine: thoracic and lumbar spine normal to inspection, Thoracic/lumbar spine scar(s), Lasegue's sign negative, pain with thoraco-lumbar ROM, paraspinal muscle tenderness, thoraco-lumbar ROM limited, No thoracic spinal tenderness and No lumbar spinal tenderness Extrem Other: Left foot in offloading shoe, dressing dry and intact. Non-healing left 2nd toe ulcer with yellow and brown granulation, no odor, no erythema, no bleeding or pathological drainage. General: Yes capillary refill normal, Yes no calf tenderness, Yes amputation noted (left great toe), No clubbing and Yes edema (nonpitting LLE) Left lower extremity: foot Psych Appearance: grossly normal Mental Status: mental status grossly normal Speech and movement: Normal speech and movement present Affect: normal affect Attitude: cooperative Thought process: Normal thought process present Thought content: Normal thought content present, suicidality (none), no hallucinations and No Depressive thoughts present Insight: Good insight present (Psych) Judgement: Good judgement present (Psych) Results Reviewed Results Reviewed: MM/XR DEXA axial skeleton 12/18/23 IMPRESSION: 1. DIAGNOSIS: Normal bone density based on the lowest T-score value of -0.7 in the total femur applying World Health Organization criteria. Assessment & Plan Assessment & Plan (1) Chronic painful diabetic neuropathy: Code(s): E11.40 - Type 2 diabetes mellitus with diabetic neuropathy, unspecified Category: Medical (2) Bilateral foot pain: Code(s): M79.671 - Pain in right foot; M79.672 - Pain in left foot Category: Medical (3) Chronic pain syndrome: Code(s): G89.4 - Chronic pain syndrome Category: Medical (4) Failed back syndrome of lumbar spine: Code(s): M96.1 - Postlaminectomy syndrome, not elsewhere classified Category: Medical (5) Non-healing ulcer of left foot: Code(s): L97.529 - Non-pressure chronic ulcer of other part of left foot with unspecified severity Category: Medical Plan Patient has shown accountability for his medication regimen and the pill count was accurate. There is no evidence of misuse, abuse or diversion at this time. MassPat reviewed. Will obtain UDS today. Will hold off sending refill for Tylenol#3. Patient will notify our office when he has #2-3 tabs. Patient continues to use Nevro SCS device with good pain relief. Considers to stop opioids in the near future. Follow up with Podiatry services as scheduled, patient was encouraged to contact his Foreign Service Officer today to get an earlier appt. All questions and concerns have been answered and patient agreed with the plan. Follow up in 8 weeks for pill count and sooner as needed. Coding Level of Care Code Est Pt Level 4 (76888) Complex EM visit Add On G2211 Diagnoses Chronic painful diabetic neuropathy E11.40 Bilateral foot pain M79.671; M79.672 Chronic pain syndrome G89.4 Failed back syndrome of lumbar spine M96.1 Non-healing ulcer of left foot L97.529
--- OUTSIDE RECORDS SUMMARY | 2024-04-08 10:34 | XMS_ITS | Encounter Summary ---
Author Organization [facility] Address [address] [place] [address] Care Team Providers Care Severity Of Illness Coordinator Name Role Phone Jas Casarez Moy Primary Care Provider [phone] Encounter Details Date Type Department Care Team (Late st Contact Info) Description 03/11/2024 11:20 AM EST - 03/11/2024 11:59 PM [facility] Hospital Encounter [facility] ACC Vascular Lab [address] [place], [place] [phone] Denton Palacios MD [address] [place] [address] Aftercare following surgery of the circulatory system; [...] half, previously drank 9 drinks per week [facility] Utilities Answer Date Recorded In [...] Info) Description 09/09/2024 1:00 PM EDT Appointment [facility] ACC Vascular Lab [address] [place] [address] 09/09/2024 1:45 PM EDT Appointment [facility] ACC Vascular Lab [address] [place] [address] 09/09/2024 2:30 PM EDT Appointment [facility] ACC Vascular Lab [address] [place] [address] 09/09/2024 3:30 PM EDT Follow-Up [facility] Building Vascular Surgery [address] [place] [address] Concreter: Raman Scruggs NP [address] [place] [address] documented as of this encounter Procedures * Due to [facility] law, this organization might not be sharing negative HIV tests. Procedure Name Priority Date/Time Associated Diagnosis Comments LOWER LIMB ARTERIAL DUPLEX, COMPLETE BILATERAL Routine 03/11/2024 1:01 PM EST Aftercare following surgery of the circulatory system Peripheral arterial disease (HCC) documented in this encounter Results * Due to [facility] law, this organization might not be sharing [...] disease documented in this encounter Care Teams Severity Of Illness Coordinator Relationship Specialty Start Date End Date Jas Casarez [address] [place] [address] PCP - General 07/19/21 documented as of this encounter
--- OUTSIDE RECORDS SUMMARY | 2024-04-08 10:34 | XMS_ITS | Referral Summary ---
Author Organization [facility] Address [address] [place] [address] Care Team Providers Care Special Education Resource Teacher Name Role Phone Jas Casarez Primary Care Provider Encounters Date Type Department Care Team Description 03/11/2024 2:00 PM EST Follow-Up [facility] ACC Building Vascular Surgery [address] [place] [address] Account Installer: Denton Zuniga MD Smith, Jeffrey, NP Aftercare following surgery of the circulatory system (Primary Dx) 03/11/2024 11:20 AM EST - 03/11/2024 11:59 PM EST Hospital Encounter [facility] ACC Vascular Lab [address] [place] [address] eDnton Palacios MD Aftercare following surgery of the circulatory system; Peripheral arterial disease (HCC) Discharge Disposition: Home or Self Care () 03/11/2024 11:20 AM EST - 03/11/2024 11:59 PM EST Hospital Encounter [facility] ACC Vascular Lab [address] [place] [address] Denton Palacios MD Aftercare following surgery of the circulatory system; Peripheral arterial disease (HCC) Discharge Disposition: Home or Self Care () 02/15/2024 1:30 PM EST Follow-Up [facility] Vascular Surgery [address] [place] [address] Account Installer: Raman Scruggs NP Amputation of left great toe (HCC) (Primary Dx) 02/04/2024 Telephone [facility] Vascular Surgery [address] [place] [address] Account Installer: Denton Zuniga MD 01/08/2024 3:00 PM EST Follow-Up [facility] Vascular Surgery [address] [place] [address] Account Installer: Denton Zuniga MD Lower limb ischemia (Primary [...] Date Diagnosed Date Resolved Date Atherosclerosis of [place] of extremities with gangrene, left [...] half, previously drank 9 drinks per week [facility] Utilities Answer Date Recorded In the past 12 months has th e AudioName, gas, oil, or water [employer] ? threatened to shut off services in your [...] Info) Description 09/09/2024 1:00 PM EDT Appointment [facility] ACC Vascular Lab [address] [place] [address] 09/09/2024 1:45 PM EDT Appointment [facility] ACC Vascular Lab [address] [place] [address] 09/09/2024 2:30 PM EDT Appointment [facility] ACC Vascular Lab [address] [place] [address] 09/09/2024 3:30 PM EDT Follow-Up [facility] ACC Building Vascular Surgery [address] [place] [address] Account Installer: Raman Scruggs NP [address] [place] [address] Medical Devices Implanted Type Area Rubber Splicer Device Identifier Shelf Expiration Date Model / Serial / Lot System Closure And Repair Suture-Mediate d Perclose Prostyle - [id number] Implanted:Qty: 1 on 08/09/2021 by Denton Palacios MD at [facility] Implant Left: Leg [employer] 01/02/2023 08498-78 / / System Closure And Repair Suture-Mediate d Perclose Prostyle - S0 - [id number] Implanted:Qty: 1 on 09/13/2021 by Denton Palacios MD at [facility] Implant Left: Leg [employer] [id number] 07/03/2023 11025-81 / 0 / [id number] System Closure And Repair Suture-Mediate d Perclose Prostyle - S0 - [id number] Implanted:Qty: 1 on 11/13/2023 by Denton Palacios MD at [facility] Implant N/A: Groin [employer] [id number] 09/01/2025 09385-47 / 0 / [id number] Patch Pericardium Bovine .6cil9zx Photofix - [id number] Implanted:Qty: 1 on 11/21/2023 by Denton Palacios MD at [facility] Implant Left: Arterial [employer] 06/08/2025 PFP0.8X8 / / [id number] Patch Pericardium Bovine .3swv5qs Photofix - [id number] Implanted:Qty: 1 on 11/21/2023 by Denton Palacios MD at [facility] Implant Left: Arterial [employer] 05/11/2025 PFP0.8X8 / / [id number] Stent System Vascular 7.2t798st BiomimFrienditePlus 3d - S0 - [id number] Implanted:Qty: 1 on 08/09/2021 by Denton Palacios MD at [facility] Stent Left: Leg [facility] [id number] 10/21/2022 935604 -1 1 / 0 / [id number] Stent System Vascular 6.5s818tz [employer] 3d - S0 - [id number] Implanted:Qty: 1 on 09/13/2021 by Denton Palacios MD at [facility] Stent Right: Leg [facility] [id number] 02/09/2023 285342 -1 0 / 0 / [id number] Stent Icast Covered [id number] - [id number] - [id number] Implanted:Qty: 1 on 11/13/2023 by Denton Palacios MD at [facility] Stent Left: Arterial [employer] [facility] [id number] 12/13/2025 00720 / [id number] 0 / Procedures * Due to [place] state law, this organization might not be [...] Last 3 Months Results * Due to [place] state law, this organization might not be [...] the ordering or responsible provider via the PinchPoint system on 02/18/2024 6:39 PM. ??Receipt of this communication by the responsible provider will be documented in PinchPoint upon receiving acknowledgement if applicable, Message ID [id number]. If this radiology report contains a blank impression section, it is an incomplete radiology report. ??Please contact the interpreting radiologist or applicable radiology division as soon as possible to obtain the completed interpretation. ? Workstation ID: [id number] Narrative 02/18/2024 6:39 PM EST COMPARISON: There are no prior studies available for comparison at this time. Resulting Agency Comment [id number] Procedure Note Donato Torres MD - 02/18/2024 [...] to the ordering orresponsible provider via the Xconomy Findings system on02/18/2024 6:39 PM. Receipt of this communication by the responsibleprovider will be documented in Xconomy Findings uponreceiving acknowledgement if applicable, Message ID [id number]. If this radiology report contains a blank impression section, it is anincomplete radiology report. Please contact the interpreting radiologistor applicable radiology division as soon as possible to obtain thecompleted interpretation. Workstation ID: [id number] Raman Lin COMPLAINT ANALYST IMG XR PROCEDURES Edited Result - Final [...] 8:48 AM 09/06/2021 4:36 PM Care Teams Special Education Resource Teacher Relationship Specialty Start Date End Date Jas Casarez [address] [place] [address] PCP - General 07/19/21
--- OUTSIDE RECORDS SUMMARY | 2024-04-08 10:34 | XMS_ITS | Encounter Summary ---
Author Organization [facility] Address [address] [place] [address] Care Team Providers Care Air Bag Builder Name Role Phone Jas Casarez Moy Primary Care Provider Encounter Details Date Type Department Care Team (Late st Contact Info) Description 03/11/2024 11:20 AM EST - 03/11/2024 11:59 PM [facility] Hospital Encounter [facility] ACC Vascular Lab [address] [place], [place] [phone] Denton Palacios MD [address] [place] [address] Aftercare following surgery of the circulatory system; [...] half, previously drank 9 drinks per week [facility] Utilities Answer Date Recorded In the [...] Info) Description 09/09/2024 1:00 PM EDT Appointment [facility] ACC Vascular Lab [address] [place] [address] 09/09/2024 1:45 PM EDT Appointment [facility] ACC Vascular Lab [address] [place] [address] 09/09/2024 2:30 PM EDT Appointment [facility] ACC Vascular Lab [address] [place] [address] 09/09/2024 3:30 PM EDT Follow-Up [facility] ACC Building Vascular Surgery [address] [place] [address] Registered Pharmacist: Raman Scruggs NP [address] [place] [address] documented as of this encounter Procedures * Due to [facility] law, this organization might not be sharing negative HIV tests. Procedure Name Priority Date/Time Associated Diagnosis Comments TOES PRESSURES AND WAVEFORM ANALYSIS Routine 03/11/2024 12:54 PM EST Aftercare following surgery of the circulatory system Peripheral arterial disease (HCC) documented in this encounter Results * Due to [facility] law, this organization might not be sharing [...] disease documented in this encounter Care Teams Air Bag Builder Relationship Specialty Start Date End Date Jas Casarez [address] [place] [address] PCP - General 07/19/21 documented as of this encounter
--- OUTSIDE RECORDS SUMMARY | 2024-04-08 10:34 | XMS_ITS | Clinical Summary ---
Author Organization [facility] Address [address] [place] [address] Care Team Providers Care Road Tester Name Role Phone MohamudJas villegas Moy Primary [...] Date Diagnosed Date Resolved Date Atherosclerosis of [place] ar teries of extremities with gangrene, left leg 11/21/202311/04 Encounters Date Type Department Care Team Description 03/11/2024 2:00 PM EST Follow-Up [facility] Vascular Surgery [address] [place] [address] Renal Dialysis Rn: Denton Zuniga MD Smith, Jeffrey, NP Aftercare following surgery of the circulatory system (Primary Dx) 03/11/2024 11:20 AM EST - 03/11/2024 11:59 PM EST Hospital Encounter [facility] Vascular Lab [address] [place] [address] Denton Palacios MD Aftercare following surgery of the circulatory system; Peripheral arterial disease (HCC) Discharge Disposition: Home or Self Care () 03/11/2024 11:20 AM EST - 03/11/2024 11:59 PM EST Hospital Encounter [facility] Vascular Lab [address] [place] [address] Denton Palacios MD Aftercare following surgery of the circulatory system; Peripheral arterial disease (HCC) Discharge Disposition: Home or Self Care () 02/15/2024 1:30 PM EST Follow-Up [facility] Vascular Surgery [address] [place] [address] Renal Dialysis Rn: Raman Scruggs NP Amputation of left great toe (HCC) (Primary Dx) 02/04/2024 Telephone [facility] Vascular Surgery [address] [place] [address] Renal Dialysis Rn: Denton Zuniga MD 01/08/2024 3:00 PM EST Follow-Up [facility] Vascular Surgery [address] [place] [address] Renal Dialysis Rn: Denton Zuniga MD Lower limb ischemia (Primary [...] half, previously drank 9 drinks per week [facility] Utilities Answer Date Recorded In the [...] Info) Description 09/09/2024 1:00 PM EDT Appointment [facility] ACC Vascular Lab [address] [place] [address] 09/09/2024 1:45 PM EDT Appointment [facility] ACC Vascular Lab [address] [place] [address] 09/09/2024 2:30 PM EDT Appointment [facility] ACC Vascular Lab [address] [place] [address] 09/09/2024 3:30 PM EDT Follow-Up [facility] ACC Building Vascular Surgery [address] [place] [address] Renal Dialysis Rn: Raman Scruggs NP [address] [place] [address] Health Maintenance Due Date Last Done Comments [...] this topic Medical Devices Implanted Type Area Internal Control Analyst Device Identifier Shelf Expiration Date Model / Serial / Lot System Closure And Repair Suture-Mediate d Perclose Prostyle - [id number] Implanted:Qty: 1 on 08/09/2021 by Denton Palacios MD at [facility] Implant Left: Leg [employer] 01/02/2023 84751-24 / / System Closure And Repair Suture-Mediate d Perclose Prostyle - S0 - [id number] Implanted:Qty: 1 on 09/13/2021 by Denton Palacios MD at [facility] Implant Left: Leg [employer] [id number] 07/03/2023 19337-30 / 0 / [id number] System Closure And Repair Suture-Mediate d Perclose Prostyle - S0 - [id number] Implanted:Qty: 1 on 11/13/2023 by Denton Palacios MD at [facility] Implant N/A: Groin [employer] [id number] 09/01/2025 89337-22 / 0 / [id number] Patch Pericardium Bovine .5fqr8vm Photofix - [id number] Implanted:Qty: 1 on 11/21/2023 by Denton Palacios MD at [facility] Implant Left: Arterial [employer] 06/08/2025 PFP0.8X8 / / [id number] Patch Pericardium Bovine .7vfm0kn Photofix - [id number] Implanted:Qty: 1 on 11/21/2023 by Denton Palacios MD at [facility] Implant Left: Arterial [employer] 05/11/2025 PFP0.8X8 / / [id number] Stent System Vascular 7.1n049uk BiomimTopDeejays 3d - S0 - [id number] Implanted:Qty: 1 on 08/09/2021 by Denton Palacios MD at [facility] Stent Left: Leg [employer] [id number] 10/21/2022 701935 -1 1 / 0 / [id number] Stent System Vascular 6.7c857bw BiomimTopDeejays 3d - S0 - [id number] Implanted:Qty: 1 on 09/13/2021 by Denton Palacios MD at [facility] Stent Right: Leg [employer] [id number] 02/09/2023 156608 -1 0 / 0 / [id number] Stent Icast Covered [id number] - [id number] - [id number] Implanted:Qty: 1 on 11/13/2023 by Denton Palacios MD at [facility] Stent Left: Arterial [employer] [facility] [id number] 12/13/2025 14679 / [id number] 0 / Procedures * Due to [place] [employer] law, this organization might not be sharing [...] Last 3 Months Results * Due to [place] law, this organization might not be sharing [...] the ordering or responsible provider via the Wizdee system on 02/18/2024 6:39 PM. ??Receipt of this communication by the responsible provider will be documented in Wizdee upon receiving acknowledgement if applicable, Message ID [id number]. If this radiology report contains a blank impression section, it is an incomplete radiology report. ??Please contact the interpreting radiologist or applicable radiology division as soon as possible to obtain the completed interpretation. ? Workstation ID: [id number] Narrative 02/18/2024 6:39 PM EST COMPARISON: There are no prior studies available for comparison at this time. Resulting Agency Comment [id number] Procedure Note Donato Torres MD - 02/18/2024 [...] to the ordering orresponsible provider via the Wizdee system on02/18/2024 6:39 PM. Receipt of this communication by the responsibleprovider will be documented in Wizdee uponreceiving acknowledgement if applicable, Message ID [id number]. If this radiology report contains a blank impression section, it is anincomplete radiology report. Please contact the interpreting radiologistor applicable radiology division as soon as possible to obtain thecompleted interpretation. Workstation ID: [id number] Raman Lin NP IMG XR PROCEDURES Edited [...] 8:48 AM 09/06/2021 4:[address]ester Relationship Specialty Start Date End Date Jas Casarez [address] [place] [address] PCP - General 07/19/21
--- OUTSIDE RECORDS SUMMARY | 2024-04-08 10:34 | XMS_ITS | Encounter Summary ---
Author Organization [facility] Address [address] [place] [address] Care Team Providers Care Liquid Sugar Melter Name Role Phone Jas Casarez Primary Care Provider [phone] Reason for Visit * Consultation (Routine) - Authorized Specialty Diagnoses / Procedures Referred By Soni atkins Referred To Contact Vascular Surgery Diagnoses 1 week IP F/U Procedures FOLLOW UP Jas Casarez [address] [place] [address] Phone: tel: fax: Fely Freeman NP [address] [place] [address] Phone: tel: fax: Referral ID Status Reason Start Date Expiration Date V isits Requested Visits Authorized [id number] Authorized 11/29/2023 05/30/2025 6 6 Encounter Details Date Type Department Care Team (Late st Contact Info) Description 03/11/2024 2:00 PM EST Follow-Up [facility] Vascular Surgery [address] [place] [phone] Curam Developer: Denton Zuniga MD [address] [place] [address] [phone] Raman Lin NP [address] [place] [phone] Aftercare following surgery of the circulatory system [...] half, previously drank 9 drinks per week [facility] Utilities Answer Date Recorded In the past 12 months has th e electric, gas, oil, or water [employer] threatened to shut off services in your [...] vascular surgery visit Note 03/11/2024 LINO OLIVEIRA [id number] Attending::Sid Palacios MD Subjective Chief Complaint: [...] his . He is followed by a nurse informatics educator in [place] (Dr. Bryanna Garcia of [facility]) and was using Medihoney on the openwound on his second toe. He saw his nurse informatics educator yesterday who did suture his dorsal left [...] was performed at our last visit andhis nurse informatics educator did not feel there was any concerns for osteo at this time so no further intervention or antibiotics were recommended. He has no significant pain due to neuropathy. He denies any claudication-like symptoms, rest pain, night pain. Denies any fevers or chills. Denies any N/V/D. Past Medical History: Diagnosis Date Adrenal insufficiency (Whippany's disease) ([facility]) Benign prostatic hyperplasia Cataract monitoring Hyperlipidemia Hypertension Osteomyelitis ([facility]) left great toe, on abx Peripheral artery disease ([facility]) bilateral, s/p bilateral stenting Polymyalgia rheumatica (CMS/HCC) ([facility]) Sleep apnea uses CPAP Type 2 diabetes mellitus ([facility]) Checks BGs intermittently (run 100-120), A1C 6.1 Past Surgical History: Procedure Laterality Date BACK SURGERY 2018 for spinal stenosis, back stimulator implant CARDIAC CATHETERIZATION CARPAL TUNNEL RELEASE COLONOSCOPY INVASIVE VASCULAR PROCEDURE Left 08/09/2021 Procedure: Peripheral Angiogram with possible use of Moderate Sedation; Surgeon: Denton Palacios MD; Location: [facility]; Service: Invasive Vascular INVASIVE VASCULAR PROCEDURE Left 08/09/2021 Procedure: Peripheral Vascular Intervention (Possible); Surgeon: Denton Palacios MD; Location:[facility]; Service: Invasive Vascular INVASIVE VASCULAR PROCEDURE Right 09/06/2021 Procedure: Peripheral Angiogram with possible use of Moderate Sedation; Surgeon: Denton Palaicos MD; Location: [facility]; Service: Invasive Vascular INVASIVE VASCULAR PROCEDURE Right 09/13/2021 Procedure: Peripheral Angiogram with possible use of Moderate Sedation; Surgeon: Denton Palacios MD; Location: [facility]; Service: Invasive Vascular INVASIVE VASCULAR PROCEDURE Right 09/13/2021 Procedure: Peripheral Vascular Intervention (Possible); Surgeon: Denton Palacios MD; Location:[facility]; Service: Invasive Vascular INVASIVE VASCULAR PROCEDURE Left 11/13/2023 Procedure: Peripheral Angiogram with possible use of Moderate Sedation; Surgeon: Denton Palacios MD; Location: [facility]; Service: Invasive Vascular INVASIVE VASCULAR PROCEDURE Left 11/13/2023 Procedure: Peripheral Vascular Intervention (Possible); Surgeon: Denton Palacios MD; Location:[facility]; Service: Invasive Vascular JOINT REPLACEMENT bilateral knee replacement CA AMPUTATION TOE,MT-P JT Left 11/21/2023 Procedure: AMPUTATION, TOE AND JOINT, METATARSOPHALANGEAL; Surgeon: Denton Palacios MD; Location: [facility]; Service: Vascular CA THROMBOENDARTECTMY SUPERFICIAL FEM ARTERY Left 11/21/2023 Procedure: [...] second toe was sutured yesterday by his nurse informatics educator Dr. Garcia. He denies any claudication-like symptoms. He does have neuropathy so very little discomfort in his wounds. He is compliant with his flatpostop shoe and should continue to utilize this and follow-up with his nurse informatics educator for continued wound care. He does have palpable pulses bilaterally. Vascular studies today showed widely patent bilateral femoral arteries. He will continue on his aspirin, Eliquis, and statin as previously prescribed. He should continue to follow up with his nurse informatics educator for continued wound care. He has had [...] right foot and seek sooner evaluation. Signature: aRman Lin NP Electronic Signature Portions of this note were done utilizing voice recognition software and may contain inadvertent errors. documented in this encounter Plan of Treatment Upcoming Encounters Date Type Department Care Team (Late st Contact Info) Description 09/09/2024 1:00 PM EDT Appointment [facility] [address] [place] [address] 09/09/2024 1:45 PM EDT Appointment [facility] [address] [place] [address] 09/09/2024 2:30 PM EDT Appointment [facility] [address] [place] [address] 09/09/2024 3:30 PM EDT Follow-Up [facility] Building Vascular Surgery [address] [place] [address] Curam Developer: Raman Scruggs NP [address] [place] [address] Scheduled Orders Name Type Priority Associated Diagnoses [...] NEC documented in this encounter Care Teams Liquid Sugar Melter Relationship Specialty Start Date End Date Jas Casarez [address] [place] [address] PCP - General 07/19/21 documented as of this encounter
[2024-04-08 10:42] VITALS: BMI 40.8
== END 2024-04-08 10:40 | disposition home or self-care (01) ==
PROVIDERS: PCP Nurse Practitioner Family; Visit Provider Nurse Practitioner Family
DX: E11.40 Type 2 diabetes mellitus with diabetic neuropathy, unspecified (principal); M79.671 Pain in right foot; M79.672 Pain in left foot; G89.4 Chronic pain syndrome; M96.1 Postlaminectomy syndrome, not elsewhere classified; L97.529 Non-pressure chronic ulcer of other part of left foot with unspecified severity
CPT/HCPCS: 99214; G2211

== ENCOUNTER → 2024-04-08 09:51 | Outpatient (BNVA) | payer MEDICARE, SELFPAY | PROVIDERS: PCP Nurse Practitioner Family; Visit Provider Nurse Practitioner Family | DX: Z51.81 Encounter for therapeutic drug level monitoring (principal); F11.20 Opioid dependence, uncomplicated; E11.622 Type 2 diabetes mellitus with other skin ulcer; L97.529 Non-pressure chronic ulcer of other part of left foot with unspecified severity; E11.40 Type 2 diabetes mellitus with diabetic neuropathy, unspecified; M79.671 Pain in right foot; M79.672 Pain in left foot; M96.1 Postlaminectomy syndrome, not elsewhere classified; G89.4 Chronic pain syndrome | CPT/HCPCS: 99212 ==

== ENCOUNTER 2024-05-21 08:44 | Outpatient (REF) | payer MEDICARE, SELFPAY ==
[2024-05-21 11:03] LABS: Alanine Aminotransferase 24 U/L (0-40); Alkaline Phosphatase 57 U/L (39-117); Anion Gap 10 (12-20); Aspartate Amino Transferase 19 U/L (5-37); Blood Urea Nitrogen 17 mg/dL (9-16); Calcium 9.2 mg/dL (8.4-10.2); Carbon Dioxide 24 mmol/L (22-29); Chloride 108 mmol/L (96-108); Estimated Glomerular Filt Rate > 60; Glucose Random 114 mg/dL (60-115); Potassium 4.1 mmol/L (3.3-5.1); Sodium 138 mmol/L (135-145); Total Protein 6.8 g/dL (6.5-8.0)
[2024-05-21 11:09] LABS: TSH reflex Free T4 0.43 uIU/mL (0.32-4.0)
== END 2024-05-21 08:45 | disposition home or self-care (01) ==
LOC: HO.10HDL 08:44
PROVIDERS: Visit Provider Nurse Practitioner Family
DX: E11.42 Type 2 diabetes mellitus with diabetic polyneuropathy (principal); R79.89 Other specified abnormal findings of blood chemistry
CPT/HCPCS: 36415; 80053; 84443

== ENCOUNTER 2024-06-10 10:12 | Outpatient (AMB) | payer MEDICARE, SELFPAY ==
--- NOTE | 2024-06-10 10:13 | MHC.OFFVIS ---
Vital Signs 06/10/24 10:29 Height 5 ft 9 in Weight 265 lb 4 oz BMI 39.2 BP 130/70 Blood Pressure Location Lt brachial Position Sitting Respiration 18 Pulse Oximetry (%) 97 Oxygen Delivery Method Room Air Intake Visit Reasons: pill count/ qutenza application Intake Note: Lino comes in today for a pill count to tyelnol #3, patient should have 0 tablets and presents with 17 tablets which he last took about a week ago. Pain today 2 Reel Assembler Required: No Accompanied by: Spouse Allergies NSAIDS (Non-Steroidal Anti-Inflamma Allergy (Severe, Verified 06/10/24 10:29) Anaphylaxis methadone Allergy (Intermediate, Verified 06/10/24 10:29) Vomiting HPI Comments Details: Patient presents today for a pill count. He is supposed to have #0 pills, in his possession has #17 pills. This demonstrates a responsible attitude in regards to the medication regimen. He has neuropathy predominantly in both feet, with recent intervention including the amputation of the left big toe last year, which has completely healed per patient. Today, the patient reports bilateral foot pain without exacerbation due to diabetic neuropathy, rated as a 2/10. The patient also manages chronic lower back pain with a Nevro spinal cord stimulator, experiencing continued benefit from its use, highlighted by a recent device charge to maintain function. Furthermore, the patient is on a regimen of Ozempic for weight management, successfully reducing weight since April from 276 to 265 pounds, indicative of effective lifestyle changes. While considering additional treatment options for neuropathy, high costs and inadequate insurance coverage for Qutenza patches limit accessibility. His current medication use includes Tylenol#3 on a less frequent, as-needed basis, aligning with a recent pill count check. The focus is to enhance current pain management through precise adjustment of the spinal cord stimulator settings. His functional status is advanced, substantiated by successful weight loss contributing to improvement in his overall health indicators. Patient denies any fever, chills, abdominal dyspnea, constipation, nausea, sedation, dizziness, bowel/bladder dysfunction or saddle anesthesia. - Location: Neuropathy primarily in both feet - Quality: Described as pins and needles, burning, - Severity: Currently rated 2 out of 10 - Onset: Chronic pain, h/o left big toe amputation in 2023 - Timing: Present today, but fluctuates - Aggravating Factors: None detailed today - Alleviating Factors: Nevro spinal cord stimulator usage - Impact: Occasionally interrupts daily activities - Affect: Pain moderately controlled but impacts activity at times - Analgesia: Currently using Tylenol#3; Nevro spinal cord stimulator - Adverse Effects: None reported - Activities of Daily Living: Affected by foot pain; adjustable stimulator settings suggested to improve neuropathic discomfort - Aberrant Drug Related Behaviors: None observed; patient retains 17 pills, indicating responsible use Past Procedures: 05/02/23: Lumbar SCS Implant with Nevro-100% pain relief back/hip, 50% pain relief bilateral feet 02/28/23: Lumbar SCS Trial with Nevro-100% pain relief 12/06/21-12/05/22: Qutenza every 3 months-minimal pain relief [facility] Medical History Amputation of left great toe Cellulitis Dry gangrene Spinal cord stimulator status Polymyalgia rheumatica PAD (peripheral artery disease) Ascending aorta dilatation Sleep apnea Type 2 diabetes mellitus with peripheral neuropathy Diabetes mellitus due to underlying condition with diabetic neuropathy, without long-term current use of insulin Arterial insufficiency Iatrogenic Dennys's disease Morbid obesity Atherosclerotic cardiovascular disease Diabetic neuropathy associated with type 2 diabetes mellitus intermediate frame tender methotrexate user Seronegative rheumatoid arthritis Obesity (BMI 30-39.9) Vitamin D deficiency Diabetes type 2, controlled Osteopenia Adrenal 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 Painful total knee replacement, right Surgical History Status post amputation History of endarterectomy History of esophagogastroduodenoscopy (EGD) H/O colonoscopy Hx of coronary angiogram History of back surgery (~2017) History of knee replacement procedure of right knee History of knee replacement procedure of left knee Hx of cardiac cath Family History Father Angina pectoris Mother Stroke Social History Household Members: Spouse Housing: House Are you a primary client care manager to a significant other at home: No Do you presently have visiting nurse or other home services: No 75 years or older and lives alone: No Alcohol intake: former Year quit: 2023 Patient Tobacco Use Status: Former Tobacco user Years Smoked: 20 years ago e-Cigarette/Vaping Use: Never Used Second Hand Smoke Exposure: No Substance Use Type: Marijuana service: No Current occupational status: retired Cognitive needs: No Hearing needs: No Vision needs: No Review of Systems Const All systems reviewed & are unremarkable except as noted in HPI and below Physical Exam General: Appears afebrile. Alert and oriented. Mood and affect appropriate. Follows and participates in conversation appropriately. Respiratory effort is unlabored. No cough. Able to transition from sit to stand unassisted. Ambulates with bilaterally normal heel strike and toe off. Psych Appearance: grossly normal Mental Status: mental status grossly normal Speech and movement: Normal speech and movement present Affect: normal affect Attitude: cooperative Thought process: Normal thought process present Thought content: Normal thought content present, suicidality (none), no hallucinations and No Depressive thoughts present Insight: Good insight present (Psych) Judgement: Good judgement present (Psych) Results Reviewed Results Reviewed: NE electromyogram (EMG); NE nerve conduction velocity 01/19/22 Right tibial and peroneal motor studies were performed. Right superficial peroneal and sural sensory studies were performed. Tibial H-reflex was obtained and paraspinal muscles were tested with a needle. IMPRESSION: Moderately severe axonal sensory motor peripheral neuropathy. Assessment & Plan Assessment & Plan (1) Chronic painful diabetic neuropathy: Code(s): E11.40 - Type 2 diabetes mellitus with diabetic neuropathy, unspecified Category: Medical (2) Bilateral foot pain: Code(s): M79.671 - Pain in right foot; M79.672 - Pain in left foot Category: Medical (3) Chronic pain syndrome: Code(s): G89.4 - Chronic pain syndrome Category: Medical (4) Failed back syndrome of lumbar spine: Code(s): M96.1 - Postlaminectomy syndrome, not elsewhere classified Category: Medical (5) Non-healing ulcer of left foot: Code(s): L97.529 - Non-pressure chronic ulcer of other part of left foot with unspecified severity Category: Medical Plan The focus was on optimizing pain management for neuropathy using the Nevro spinal cord stimulator. I discussed adjusting the stimulator specifically to target the patient's foot pain, ensuring differentiation from back pain adjustments. Insurance coverage for Qutenza patches was reviewed for potential future use, constrained by cost currently. The significant weight loss progression on Ozempic is acknowledged with plans to maintain this therapeutic route, recognizing its broad beneficial health impacts. Patient has shown accountability for his medication regimen and the pill count was accurate. There is no evidence of misuse, abuse or diversion at this time. [employer] reviewed. Recent UDS was concordant. Refill sent for Tylenol#3 with advanced date of 06/18/24. Patient has Narcan at home. Patient continues to use Nevro SCS device with good pain relief. All questions and concerns have been answered and patient agreed with the plan. Follow up in 2 months for pill count and sooner as needed. Patient was informed and verbally consented to the use of an ambient scribe for clinic note documentation during this visit. Medications: Refilled acetaminophen-codeine 300-30 mg Partial Fill upon patient request. 1 tab PO BID 30 days PRN 60 tabs 1RF pain M35.3 - Polymyalgia rheumatica, M47.26 - Other spondylosis with radiculopathy, lumbar region, M96.1 - Postlaminectomy syndrome, not elsewhere classified Coding Level of Care Code Est Pt Level 4 (21425) Complex EM visit Add On G2211 Diagnoses Chronic painful diabetic neuropathy E11.40 Bilateral foot pain M79.671; M79.672 Chronic pain syndrome G89.4 Failed back syndrome of lumbar spine M96.1 Non-healing ulcer of left foot L97.529
[2024-06-10 10:29] VITALS: BP 130/70; RESP 18; O2SAT 97; BMI 39.2
--- OUTSIDE RECORDS SUMMARY | 2024-06-10 11:56 | XMS_ITS | Referral Summary ---
Author Organization [facility] Address [address] [place] [address] Care Team Providers Care Gym Teacher Name Role Phone Mohamudbakari Jas Winter Primary Care Provider Allergies Active Allergy Reactions [...] Date Diagnosed Date Resolved Date Atherosclerosis of [place] ter[place] of extremities with gangrene, left leg 11/21/202311/04 Immunizations Immunization Administration Dates Next Due Influenza, Trivalent, Adjuvanted, PF (Deferred: Patient Refused - defer outpatient) Social History [...] per week [facility] Utilities Answer Date Recorded In the past 12 months has th e electric, gas, oil, or water [employer] threatened to shut off services in your [...] Info) Description 09/09/2024 1:00 PM EDT Appointment [facility] [address] [place] [address] 09/09/2024 1:45 PM EDT Appointment [facility] [address] [place] [address] 09/09/2024 2:30 PM EDT Appointment [facility] [address] [place] [address] 09/09/2024 3:30 PM EDT Follow-Up [facility] Building Vascular Surgery [address] [place] [address] Child Health Associate: Raman Scruggs NP [address] [place] [address] Medical Devices Implanted Type Area Bookkeeping Teacher Device Identifier Shelf Expiration Date Model / Serial / Lot System Closure And Repair Suture-Mediate d Perclose Prostyle - [id number] Implanted:Qty: 1 on 08/09/2021 by Denton Palacios MD at [facility] Implant Left: Leg [employer] 01/02/2023 [id number] / / System Closure And Repair Suture-Mediate d Perclose Prostyle - S0 - [id number] Implanted:Qty: 1 on 09/13/2021 by Denton Palacios MD at [facility] Implant Left: Leg [employer] [id number] 07/03/2023 [id number] / 0 / [id number] System Closure And Repair Suture-Mediate d Perclose Prostyle - S0 - [id number] Implanted:Qty: 1 on 11/13/2023 by Denton Palacios MD at [facility] Implant N/A: Groin [employer] [id number] 09/01/2025 [id number] / 0 / [id number] Patch Pericardium Bovine .3dep0gf [employer]ix - [id number] Implanted:Qty: 1 on 11/21/2023 by Denton Palacios MD at [facility] Implant Left: Arterial [employer] 06/08/2025 PFP0.8X8 / / [id number] Patch Pericardium Bovine .4oxs5ot [employer] - [id number] Implanted:Qty: 1 on 11/21/2023 by Denton Palacios MD at [facility] Implant Left: Arterial [employer] 05/11/2025 PFP0.8X8 / / [id number] Stent System Vascular [id number] [employer] 3d - S0 - [id number] Implanted:Qty: 1 on 08/09/2021 by Denton Palacios MD at [facility] Stent Left: Leg [employer] [id number] 10/21/2022 [id number] -[id number] 1 / 0 / [id number] Stent System Vascular [id number] [employer] 3d - S0 - [id number] Implanted:Qty: 1 on 09/13/2021 by Denton Palacios MD at [facility] Stent Right: Leg [employer] [id number] 02/09/2023 [id number] -1 0 / 0 / [id number] Stent [employer] [id number] - [id number] - [id number] Implanted:Qty: 1 on 11/13/2023 by Denton Palacios MD at [facility] Stent Left: Arterial [facility] [id number] 12/13/2025 [id number] / [id number] / [place] [address] BCBS MCR REPLACE PPO Advance Directives * [...] 8:48 AM 09/06/2021 4:36 PM Care Teams Gym Teacher Relationship Specialty Start Date End Date Jas Casarez [address] [place] [address] PCP - General 07/19/21
--- OUTSIDE RECORDS SUMMARY | 2024-06-10 11:56 | XMS_ITS ---
Author Organization [facility] Address [address] [place] [address] Care Team Providers Care Van Cdl Driver Name Role Phone Jas Stone Primary Care Provider Unav Bryanna Chavarria Unavailable [phone] Allergies Allergen (clinical drug ingredient) Drug/Non Drug [...] Date End Date Status Diclofenac Not-Takin g Ketoconazole Not-Dipesh ing Lidocaine-Prilocaine 2.5-2.5 % as directed Externally Not-T aking EPINEPHrine 0.3 MG/0.3ML as directed Injection Not-Taking Hydrocortisone Not-T aking Amoxicillin Not-Taki ng Ropinirole Hydrochloride Not-Taking Venlafaxine HCl 75 MG 1 tablet with food Orally Once a day for 30 day(s) Not-Taking Naloxone HCl 4 MG/0.1ML as directed Nasally Not-Taking Olopatadine HCl 0.1 % 1 drop into affect ed eye Ophthalmic Twice a day Not-Taking Plavix Not-Taking Humira Pen 40 MG/0.4ML as directed Subcutaneous Not-Taking Metoprolol Succinate ER Not-Taking Cephalexin 500 MG 1 capsule Orally neil ry 8 hrs for 10 days Not-Taking Keflex 500 MG 1 capsule Orally neil ry 12 hrs for 10 day(s) 10/24/2023 Not-Taking Extra Depth Diabetic Shoes with 3 Pair Custom heat-molded multi-density innersoles for 1 year Dx: 12/13/2021 Active Vitamin D Active Magnesium 400 MG as directed Orally Not-Taking Custom Orthotics as directed A ctive Methotrexate 2.5 MG as directed Orally Not-Taking Folic Acid 1 MG 1 tablet Orally Once a day for 30 day(s) Active Pravastatin Sodium 40 MG 1 tablet Orally Once a day for 30 day(s) Active metFORMIN HCl ER 500 MG 1 tablet with ev ening meal Orally twice a day Active Tamsulosin HCl 0.4 MG 1 capsule Orally O nce a day for 30 day(s) Active Prednisone Active Effexor Active Aspirin 81 MG 1 tablet Orally Once a day for 30 day(s) Active EpiPen Active Cardizem Active Acetaminophen-Codeine 300-30 MG 1 [...] use: Nonsmoker Vital Signs Height 5ft9in in 03/26/2024 Weight 273 lbs 03/26/2024 BMI 40.31 kg/m2 03/26/2024 Blood pressure systolic 117 mm Hg 03/26/19 25 Blood pressure diastolic 70 mm Hg 025 Procedures Procedure Date Ordered Date Performed Result Body Sit e 46742-GUHEXMS SKIN/TISSUE 03/26/2024 N/A Encounters Encounter Location Date Provider Diagnosis [facility] [address] [place] [address] 03/26/2024 Bryanna Garcia Skin ulcer of toe of left foot with fat layer exposed L97.522 ; Type 2 diabetes mellitus with diabetic polyneuropathy E11.42 ; History of amputation Z89.9 ; Peripheral vascular disease of extremity I73.9 and Subacute osteomyelitis of left foot M86.272 Assessments Encounter Date Diagnosis (ICD Code) Assessment Notes Treatment Notes Treatment Clinical Notes Section Notes 03/26/2024 Skin ulcer of toe of left foot with fat layer exposed (ICD-10 - L97.522) Response to treatment Unchanged 03/26/2024 Type 2 diabetes mellitus with diabetic polyneuropathy (ICD-10 - E11.42) 03/26/2024 History of amputation (ICD-10 - Z89.9) 03/26/2024 Peripheral vascular disease of extremity (ICD-10 - I73.9) 03/26/2024 Subacute osteomyelitis of left foot (ICD-10 - M86.272) Plan Of Treatment Pending Test Test Name Order Date 49346-JVJVUQL SKIN/TISSUE 03/26/2024 Next Appt Details Follow Up: 4 Weeks, Reason: Provider Name:Tono Skinner , 07/25/2024 10:30:00 AM, [address] [place] [address], [phone], Procedure Notes * Category Sub-Category Detail Notes [...] controlled through direct pressure. Post debridement measurements: 9 mm x 4 mm x 3 mm. Character of the wound post debriement is stable (81313) Progress Notes * Lino OLIVEIRA KDOB: [birth year] (69 yo M)Acc No.[id number]:03/26/2024 Progress Notes Patient:?Lino OLIVEIRA Provider:?Bryanna Garcia DPM :1955???Age:69 Y???Sex:Male Wei e:03/26/2024 Address:[address] [place] [address], [facility] Pcp:LADONNA Arreola Subjective: * Chief Complaints: [...] ?Exercise: yes. ?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: . 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 * Medications:?TakingEliquis C ardizem Acetaminophen-Codeine [...] HCl 4 MG/0.1ML Liquid as directed Nasally Not- Taking/PRN Lidocaine-Prilocaine 2.5-2.5 % Cream as directed Externally Not-Taking/PRN Ketoconazole Not-Taking/PRN Hydrocortisone Not-Taking/PRN EPINEPHrine 0.3 MG/0.3ML Solution Prefilled Syringe as directed Injection Not-Taking/PRN Diclofenac Medication List reviewed and reconciled with the patient * Allergies:?Methadone: vomiti ngIbuprofen: anaphylaxisMotrin: anaphylaxisNSAIDs: anaphylaxisyes[Allergies Verified] Objective: * Vitals:?Ht:5ft9in, Wt:273, B MN:40.31, Shoe size:12EEE, BP:117/70mm Hg, Ht-cm: 175.26 cm, Wt-k.83 kg. * ???Past Orders: ???Lab:HEMOGLOBIN A1C (GLYCO HEMOGLOBIN) (Order Date - 12/04/2023) (Collection Date & Time - 02/04/2024 09:46 AM) ? Value Reference Range ?HEMOGLOBIN A1C % (HH) 5.4 * Examination: ???Dermatologic: ?ULCER:?LOCATION, dorsal proximal IPJ T1 SIZE, NOW? 8 mm X 4 mm X 2 mm, BASE, fibrotic, RIM, hyperkeratotic, UNDERMINING, noneTRACKING, [...] controlled through direct pressure. Post debridement measurements: 9 mm x 4 mm x 3 mm. Character of the wound post debriement is stable ([address]).? * Procedure Codes:?62329 DEBRI DE SKIN/TISSUE, Modifiers: XS * Preventive Medicine:? ??Counseling:?Ulcer:?Given recent successful results to treatment, The patient is to cont the local wound care as directed. Daily medihoney/ DSD and ambulation in surgical shoe only..? * Follow Up:?4 Weeks * Images: * Sign off status: Completed true * Provider:?Bryanna Garcia DPM Date:?0 03/26/2024 Generated for Merrick alvarado/Pepe/eTransmitting on:?06/10/2024 11:56 AM EDT History and Physical Notes * HPI (History of Present Illness) Category Sub-Category Detail Notes Category Not es Skin problems Duration: several weeks Treatments: Local care consistin g of daily distilled water wound cleanse, application of sterile dressing, offloading via surgical shoe Examination Category Sub-Category Detail Notes Category Not es Dermatologic ULCER: LOCATION, dorsal proximal IPJ T1 SIZE, NOW 8 mm X 4 mm X 2 mm, BASE, fibrotic, RIM, hyperkeratotic, UNDERMINING, noneTRACKING, [...]
--- OUTSIDE RECORDS SUMMARY | 2024-06-10 11:56 | XMS_ITS | Patient Health Record ---
Author [facility] Address [address] [facility] [place] [address] Care Team Providers Care Mines Inspector Name Role Phone Jas Stone Primary Care Provider Unav bentleyable Bryanna Garcia Unavailable [phone] Barrington Cramer Unavailable [phone] Tono Skinner Unavailable [phone] Allergies Allergen (clinical drug ingredient) Drug/Non Drug Allergy documented on EMR Reaction Allergy Type Onset Date Status Motrin anaphylaxis Drug Allergy Activ e ibuprofen Ibuprofen anaphylaxis Drug Allergy Activ e methadone Methadone vomiting Drug Allergy Active Non-steroidal anti-inflammatory agent (FN) NSAIDs anaphylaxis Drug Allergy Active Results Component Value Reference Range Notes HEMOGLOBIN A1C (GLYCOHEMOGLO BIN) Reviewed date:03/26/2024 09:47:57 AM Interpretation: Performing Lab: Notes/Report: HEMOGLOBIN A1C % (HH) 5.4 HEMOGLOBIN A1C (GLYCOHEMOGLO BIN) Reviewed date:03/27/2024 02:26:20 PM Interpretation: Performing Lab: Notes/Report: HEMOGLOBIN A1C % (HH) 5.4 TOTAL HEMOGLOBIN (HGBA1C) 5.4 HEMOGLOBIN A1C (GLYCOHEMOGLO BIN) Reviewed date:04/22/2024 10:35:22 AM Interpretation: Performing Lab: Notes/Report: HEMOGLOBIN A1C % (HH) 5.4 HEMOGLOBIN A1C (GLYCOHEMOGLO BIN) Reviewed date:10/24/2023 08:09:15 AM Interpretation: Performing Lab: Notes/Report: HEMOGLOBIN A1C % (HH) 6.1 Reason For Referral No Information Medications Medication SIG (Take, Route, Frequency, Duration) Notes Start Date End Date Status Keflex 500 MG 1 capsule Orally neil ry 12 hrs for 10 day(s) 10/24/2023 Not-Taking Metoprolol Succinate ER Not-Taking Humira Pen 40 MG/0.4ML as directed Subcutaneous Not-Taking Cephalexin 500 MG 1 capsule Orally neil ry 8 hrs for 10 days Not-Taking Amoxicillin Not-Taki ng Plavix Not-Taking Cardizem Active Ropinirole Hydrochloride Not-Taking Eliquis Active Venlafaxine HCl 75 MG 1 tablet with food Orally Once a day for 30 day(s) Not-Taking Aspirin 81 MG 1 tablet Orally Once a day for 30 day(s) Active Naloxone HCl 4 MG/0.1ML as directed Nasally Not-Taking Acetaminophen-Codeine 300-30 MG 1 tablet as needed Orally every 6 hrs Active Olopatadine HCl 0.1 % 1 drop into affect ed eye Ophthalmic Twice a day Not-Taking EpiPen Active Effexor Active Lidocaine-Prilocaine 2.5-2.5 % as directed Externally Not-T aking Folic Acid 1 MG 1 tablet Orally Once a day for 30 day(s) Active Hydrocortisone Not-T aking Ketoconazole Not-Dipesh ing Pravastatin Sodium 40 MG 1 tablet Orally Once a day for 30 day(s) Active Diclofenac Not-Takin g metFORMIN HCl ER 500 MG 1 tablet with ev ening meal Orally twice a day Active EPINEPHrine 0.3 MG/0.3ML as directed Injection Not-Taking Tamsulosin HCl 0.4 MG 1 capsule Orally O nce a day for 30 day(s) Active Prednisone Active Extra Depth Diabetic Shoes with 3 Pair Custom heat-molded multi-density innersoles for 1 year Dx: 12/13/2021 Active Vitamin D Active Magnesium 400 MG as directed Orally Not-Taking Custom Orthotics as directed A ctive Methotrexate 2.5 MG as directed Orally Not-Taking Immunizations Vaccine Route Administration Date Status Comme nts Influenza Unknown 11/02/2023 Refused Social History Tobacco Use: Social History Observation Description Date Details (start date - stop date) Never Smoker NA - NA Tobacco use other than smoking: Question Answer Notes Are you an other tobacco user? No Tobacco Control (Standard) Question Answer Notes Tobacco use: Nonsmoker AUDIT-C (Standard) Question Answer Notes Did you have a drink containing alcohol in the p ast year? No Points 0 Interpretation Negative Problems Problem Type SNOMED Code ICD Code Onset Dates Problem Status W/U Status Risk Notes Problem Polyneuropathy due to type 2 diabetes mellitus (082454359) Type 2 diabetes mellitus with diabetic polyneuropathy (E11.42) Active confirmed Problem Acquired hammer toe of left foot (940840068761182 3) Hammertoe of left foot (M20.42) Active confirmed Problem Ischemic foot ulcer (420773661) Skin ulcer of toe of left foot with fat layer exposed (L97.522) Active confirmed Acute problem, Stable (1=3) Response to treatment - Improvement Vital Signs Blood pressure diastolic 70 mm Hg 04/22/2024 Height 5ft9in in 04/22/2024 Blood pressure systolic 117 mm Hg 04/22/2024 Weight 273 lbs 04/22/2024 BMI 40.31 kg/m2 04/22/2024 Procedures Procedure Date Ordered Date Performed Result Body Sit e 73132-XTBKYYN SKIN/TISSUE 10/24/2023 N/A 21352-KRWORFG SKIN/TISSUE 02/04/2024 N/A 18418-GIBVLNV SKIN/TISSUE 02/11/2024 N/A 56480 - Tenotomy, open flexor 02/11/2024 N/A 61512-FXTVDAK SKIN/TISSUE 02/20/2024 N/A 82729-IAJKCHI SKIN/TISSUE 03/10/2024 N/A 01328-PYACERX SKIN/TISSUE 03/26/2024 N/A 05497-RUQIIGW SKIN/TISSUE 03/17/2024 N/A 74708-AECJQUF SKIN/TISSUE 11/02/2023 N/A Encounters Encounter Location Date Provider Diagnosis [facility] [address] 10/24/2023 Barrington Cramer Skin disease L98.9 ; 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 ; Cellulitis of left lower limb L03.116 ; Dry gangrene I96 and Type 2 diabetes mellitus with diabetic polyneuropathy E11.[address] [address] 11/02/2023 Tono Susanne Skin ulcer of toe of left foot with fat layer exposed L97.522 ; Cellulitis of toe of left foot L03.032 and Type 2 diabetes mellitus with diabetic polyneuropathy E11.[address] [address] 11/07/2023 Barrington Cramer Skin disease L98.9 ; 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 ; Cellulitis of left lower limb L03.116 ; Dry gangrene I96 and Type 2 diabetes mellitus with diabetic polyneuropathy E11.[address] [address] 02/04/2024 Bryanna Garcia Skin ulcer of toe of left foot with fat layer exposed L97.522 ; Hammertoe of left foot M20.42 ; Type 2 diabetes mellitus with diabetic polyneuropathy E11.42 ; History of amputation Z89.9 and Peripheral vascular disease of extremity I73.[address] [address] 02/11/2024 Bryanna Garcia Hammer toe of left foot M20.42 ; Skin ulcer of toe of left foot with fat layer exposed L97.522 ; Type 2 diabetes mellitus with diabetic polyneuropathy E11.42 ; History of amputation Z89.9 and Peripheral vascular disease of extremity I73.[address] [address] 02/20/2024 Bryanna Garcia Hammer toe of left foot M20.42 ; Skin ulcer of toe of left foot with fat layer exposed L97.522 ; Type 2 diabetes mellitus with diabetic polyneuropathy E11.42 ; History of amputation Z89.9 ; Peripheral vascular disease of extremity I73.9 and Subacute osteomyelitis of left foot M86.[address] [address] 03/10/2024 Bryanna Garcia Skin ulcer of toe of left foot with fat layer exposed L97.522 ; Type 2 diabetes mellitus with diabetic polyneuropathy E11.42 ; History of amputation Z89.9 ; Peripheral vascular disease of extremity I73.9 and Subacute osteomyelitis of left foot M86.[address] [address] 03/17/2024 Bryanna Garcia Skin ulcer of toe of left foot with fat layer exposed L97.522 ; Type 2 diabetes mellitus with diabetic polyneuropathy E11.42 ; History of amputation Z89.9 ; Peripheral vascular disease of extremity I73.9 and Subacute osteomyelitis of left foot M86.[address] [address] 03/26/2024 Bryanna Garcia Skin ulcer of toe of left foot with fat layer exposed L97.522 ; Type 2 diabetes mellitus with diabetic polyneuropathy E11.42 ; History of amputation Z89.9 ; Peripheral vascular disease of extremity I73.9 and Subacute osteomyelitis of left foot M86.[address] [address] 04/22/2024 Tono Susanne Skin ulcer of toe of left foot with fat layer exposed L97.522 ; Type 2 diabetes mellitus with diabetic polyneuropathy E11.42 ; History of amputation Z89.9 and Peripheral vascular disease of extremity I73.[address] [address] 10/24/[address] [address] 10/24/[address] [address] 11/02/2023 Tono Skinner [address] [address] 11/07/[address] [address] 11/13/[address] [address] 02/04/2024 Bryanna Garcia [address] [address] 02/21/2024 Bryanna Garcia Assessments Encounter Date Diagnosis [...] mellitus with diabetic polyneuropathy (ICD-10 - E11.42) 04/22/2024 Type 2 diabetes mellitus with diabetic polyneuropathy (ICD-10 - E11.42) 04/22/2024 Skin ulcer of toe of left foot with fat layer exposed (ICD-10 - L97.522) Acute problem, Stable (1=3) Response to treatment - Improvement 03/26/2024 Skin ulcer of toe of left foot with fat layer exposed (ICD-10 - L97.522) Response to treatment Unchanged 03/26/2024 History of amputation (ICD-10 - Z89.9) 04/22/2024 History of amputation (ICD-10 - Z89.9) 03/17/2024 History of amputation (ICD-10 - Z89.9) [...] vascular disease of extremity (ICD-10 - I73.9) 04/22/2024 Peripheral vascular disease of extremity (ICD-10 - I73.9) 03/26/2024 Peripheral vascular disease of extremity (ICD-10 - I73.9) 03/26/2024 Subacute osteomyelitis of left foot (ICD-10 - M86.272) 03/17/2024 Subacute osteomyelitis of left foot (ICD-10 [...] X ray : Foot, right 3V 12/13/2021 21516-EVJURNA SKIN/TISSUE 02/04/2024 64542-GKRBUOJ SKIN/TISSUE 10/24/2023 29860-GYFBGCL SKIN/TISSUE 11/02/2023 73816-HQWVHVF SKIN/TISSUE 02/11/2024 68853-ZVEIAQG SKIN/TISSUE 02/20/2024 96815-LVRJESR SKIN/TISSUE 03/10/2024 85327-JXNYXGT SKIN/TISSUE 03/17/2024 74094-TOXGMGE SKIN/TISSUE 03/26/2024 X ray : Ankle, right 3V 12/13/2021 70177 - Tenotomy, open flexor 02/11/2024 Next Appt Details Provider Name:Tono Skinner , 07/25/2024 10:30:00 AM, [address] [place] [address], [phone], Insurance Providers Payer Name Payer Address Payer Phone Subscriber Number Group Number Insured Name Patient Relationship to Insured Coverage Start Date Coverage End Date [facility] 63 Medicare Preferred [address] [place] [address] [phone] [id number] Lino Nayak Self - patient is the [...] angiogram spinal stenosis surgery 2019 bilateral TKR 0920-1319 Stent Hospitalization History Reason Date(Month/Year) Capsasin treatment x30 minutes/4x year 1 [facility] dosw 12/04/2021 Stent Right leg 09/13/2021 Stent Left leg 08/09/2021 Ultrasound Bilateral legs, angiogram Lef t leg 06/30/2021 Injection, [facility] 07/06/2021 MRI Left Foot 03/10/2021 Xray left Foot 03/04/2021
--- OUTSIDE RECORDS SUMMARY | 2024-06-10 11:56 | XMS_ITS ---
[facility] Address [address] [facility] [place] [address] Care Team Providers Care Soundscriber Mechanic Name Role Phone aJs Stone Primary Care Provider Bryanna Ley Unavailable [phone] Tono Skinner Unavailable [phone] Allergies Allergen (clinical drug ingredient) Drug/Non Drug [...] ry 8 hrs for 10 days Not-Taking Methotrexate 2.5 MG as directed Orally Not-Taking Tamsulosin HCl 0.4 MG 1 capsule Orally O nce a day for 30 day(s) Active Extra Depth Diabetic Shoes with 3 Pair Custom heat-molded multi-density innersoles for 1 year Dx: 12/13/2021 Active Vitamin D Active Magnesium 400 MG as directed Orally Not-Taking Custom Orthotics as directed A ctive Folic Acid 1 MG 1 tablet Orally Once a day for 30 day(s) Active Pravastatin Sodium 40 MG 1 tablet Orally Once a day for 30 day(s) Active metFORMIN HCl ER 500 MG 1 tablet with ev ening meal Orally twice a day Active Prednisone Active EpiPen Active Cardizem Active Eliquis Active Aspirin 81 MG 1 tablet Orally Once a day for 30 day(s) Active Acetaminophen-Codeine 300-30 MG 1 tablet as needed Orally every 6 hrs Active Effexor Active Lidocaine-Prilocaine 2.5-2.5 % as directed Externally Not-T aking Hydrocortisone Not-T aking Ketoconazole Not-Dipesh ing Diclofenac Not-Takin g EPINEPHrine 0.3 MG/0.3ML as directed Injection Not-Taking Amoxicillin Not-Taki ng Ropinirole Hydrochloride Not-Taking Venlafaxine HCl 75 MG 1 tablet with food Orally Once a day for 30 day(s) Not-Taking Naloxone HCl 4 MG/0.1ML as directed Nasally Not-Taking Olopatadine HCl 0.1 % 1 drop into affect ed eye Ophthalmic Twice a day Not-Taking Plavix Not-Taking Social History Tobacco Use: Social History Observation [...] ast year? No Points 0 Interpretation Negative Vital Signs Height 5ft9in in 04/22/2024 Weight 273 lbs 04/22/2024 BMI 40.31 kg/m2 04/22/2024 Blood pressure systolic 117 mm Hg 04/22/19 25 Blood pressure diastolic 70 mm Hg 025 Encounters Encounter Location Date Provider Diagnosis [facility] [place] [address] [place] [address] 04/22/2024 Tonograbiel MorinSusanne Skin ulcer of toe of left foot with fat layer exposed L97.522 ; Type 2 diabetes mellitus with diabetic polyneuropathy E11.42 ; History of amputation Z89.9 and Peripheral vascular disease of extremity I73.9 Assessments Encounter Date Diagnosis (ICD Code) Assessment Notes Treatment Notes Treatment Clinical Notes Section Notes 04/22/2024 Skin ulcer of toe of left foot with fat layer exposed (ICD-10 - L97.522) Acute problem, Stable (1=3) Response to treatment - Improvement 04/22/2024 Type 2 diabetes mellitus with diabetic polyneuropathy (ICD-10 - E11.42) 04/22/2024 History of amputation (ICD-10 - Z89.9) 04/22/2024 Peripheral vascular disease of extremity (ICD-10 - I73.9) Plan Of Treatment Next Appt Details Follow Up: prn,To see Dr Hanna bryson, Reason: Provider Name:Tono Skinner , 07/25/2024 10:30:00 AM, [address] [place], [address], Progress Notes * TEELino KDOB: [birth year] (69 yo M)Acc No.[id number]:04/22/2024 Progress Notes Patient:?Lino OLIVEIRA Provider:?Tono Skinner DPM :1955???Age:69 Y???Sex:Male Wei e:04/22/2024 Address:[address] [place], [place] [address] Pcp:LADONNA Arreola Subjective: * Chief Complaints: * ???Open sore - Toe * HPI: ???Skin problems:?Duration:?several weeks.?Treatments:?Local care consisting of daily distilled water wound cleanse, application of sterile dressing, offloading via surgical shoe.? * ROS:?General/Constitutional:?Nausea?denies.?Vomiting?denies.?Hunger Thirst?denies.?Loss appetite?denies, denies.?Chills?denies, denies.?Fatigue?denies.?Fever?denies, denies.?Night Sweats?denies, denies.?Unexplained weight loss?denies.?Unexplained weight gain?denies.?Ophthalmologic:?Blurred vision?denies.?Red eye?denies.?HEENTM:?Dentures?denies.?Dizziness?denies.?Glasses/contacts?admits.?Retinopathy?den ies.?Blurred/double vision?denies, denies.?TMJ?denies, denies.?Discharge/drainage?denies, denies.?Implants?denies, denies.?Sore throat?denies.?Dental implants?denies.?Hard of hearing ?admits.?Difficulty chewing/swallowing/speaking?denies.?Nose bleeds?denies.?Sore mouth?denies, denies.?Swollen glands?denies.?Respiratory:?On Oxygen?denies, d enies.?Pneumonia/pleurisy?denies.?Bronchitis?denies.?Emphysema?denies.?Coughing? denies.?Cough blood?denies.?Shortness of breath?denies.?Wheezing?denies, denies.?Cardiovascular:?Pacemaker?denies, denies.?MVP?denies.?WPW?denies, denies.?CHF?denies, denies.?Heart attack?denies.?Septal defect?denies.?Rapid beat?denies.?Chest pain ?denies.?Atrial Fib.?denies.?Murmur/Palpitations?denies.?Gastrointestinal:?Hemorrhoids?denies.?Stomach/Abdominal pain?denies.?Dark blood stool?denies.?Irritable bowel ?denies.?Constipation?denies.?Diarrhea?denies.?Vomiting?denies.?Hematology:?Swelling?denies.?Clots?denies.?Varicose Veins?denies.?Bruising?denies.?Bleeding problem?denies.?Genitourinary:?Blood urine?denies.?Frequent/Painfu/urination/bladder control?denies.?Kidney stones?denies.?Infection (UTI)?denies.?Nephropathy?admits.?sex trans dis (STD)?denies.?Prostate?denies.?Musculoskeletal:?Hammertoes?denies.?Bunions?denies.?Scoliosis/kyphosis?denies.?Back Pain?denies.?Muscle Cramps/ Resting?denies.?Muscle cramps / walking?denies.?Generalized aches and pains?admits.?Weakness?denies, denies.?Integ.:?White?denies, denies.?Scars?denies.?Corns/calluses?denies.?Ingrown nails?denies, denies.?Painful nails?denies.?Open Sores?denies.?Rashes?denies.?Neurologic:?Difficulty sleeping?denies.?Bipolar?denies.?Brain disorder?denies, denies.?Numbness?admits.?Balance trouble?denies, denies.?Confusion?denies.?Fainting/blackouts?denies, denies.?Headache?denies.?Tingling?admits.?Tremors?denies.? * Medical History:? * Surgical History:?back surge [...] Family History:?Mother: dece ased, stroke, diagnosed with Family history of arthritis, Unspecified essential hypertension, Unspecified heart disease.?Father: , diagnosed with Unspecified cerebral artery occlusion with cerebral infarction.? * Social History:?Tobacco Use:?Tobacco use other than smoking?Are you an other tobacco user??No ?Tobacco Control (Standard)?Tobacco use:?Nonsmoker ???Drugs/Alcohol:?Drugs?Have you used drugs other than those for medical reasons in the past 12 months? No.?Miscellaneous:?Caffeine: yes, frequency:, 1-2 cups per day. ?Children: yes. ?Exercise: yes. ?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: . 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 ???Drug/Alcohol:?AUDIT-C (Standard)?Did you have a drink containing alcohol in the past year??No ?Points?0 ?Interpretation?Negative * Medications:?TakingEliquis C ardizem Acetaminophen-Codeine 300-30 MG [...] anaphylaxisyes[Allergies Verified] Objective: * Vitals:?Ht:5ft9in, Wt:273, B PR:40.31, Shoe size:12EEEE, BP:117/70mm Hg, BS:150, Ht-cm: 175.26 cm, Wt-k.83 kg. * ???Past Orders: ???Lab:HEMOGLOBIN A1C (GLYCO HEMOGLOBIN) (Order Date - 02/04/2024) (Collection Date & Time - 04/22/2024 10:34 AM) ? Value Reference Range ?HEMOGLOBIN A1C % (HH) 5.4 * Examination: ???Dermatologic: ?ULCER:?NOW shows complete re-epithelialization, dorsal proximal IPJ T1.?Ophthalmology Referral: ?DIABETES EYE EXAM?Procedure Performed:?Yes ?Date of Exam Performed?10/10/2023 ?Diabetic Retinopathy Screening:?Yes ?Retinal Screening Performed:?Yes ?Findings of Diabetic Eye Exam:?no retinopathy?Neurological: ?SENSORY:? Neurological exam demonstrates, reduced vibration sensation, 5.07 monofilament test performed at plantar aspects of 5 varied sites per foot shows sensation, reduced , at Forefoot, at Midfoot, B/L.?General Examination: ?GENERAL APPEARANCE:?Reveals a pleasant, alert, well nourished, well- developed, well hydrated individual, who demonstrates proper attention to hygiene/body habitus, and is in no acute distress, Pt serves as own historian for office visit today.?ORIENTED:?person, place, and time.?FOOT EXAM:?Lower Extremity Neurological Exam performed:?Yes ?Date?04/22/2024 ?Footwear Evaluation?Footwear Evaluation performed:?Yes?Orthopedic: ?MUSCLE STRENGTH:?5/5 all groups in a symmetrical fashion, B/L.?FOOTWEAR:?good condition.? Assessment: * Assessment: 1.?Type 2 diabetes mellitus with diabetic polyneuropathy - E11.42???2.?Skin ulcer of toe of left foot with fat layer exposed - L97.522 (Primary)???Notes :Acute problem, Stable (1=3) Response to treatment - Improvement???3.?History of amputation - Z89.9???4.?Peripheral vascular disease of extremity - I73.9??? Plan: * Treatment: * Procedure Codes:? * Preventive Medicine:? ??Counseling:?Discussion:?-13: Office or other [...] have encouraged the patient to call the office.?Ulcer:?PREVENTIVE STRATEGIES were reviewed with the patient to avoid recurrent ulceration. A set of verbal and written instructions regarding proper daily diabetic footcare techniques was discussed and dispensed. The patient is to pay close attention to skin hydration by maintaining proper moisturization through correct water consumption and consistent application of skin lotions/creams/ointments. They are also to perform regular visual and tactile foot inspections for any interruption in skin integrity including cracks, open lesions, and immediately report to the office any sign of infection such as redness/malodor/drainage/swelling. We discussed and recommended practices and procedures regarding regular shoe and insert evaluations for the presence of foreign bodies as well as for any irregular shoe or insert wear. We reinforced the importance for the patient to adhere to wearing their orthopedic shoes and pressure accommodative innersoles whenever walking. We stressed the significant value for the patient to remain consistent concerning their medically prescribed diet, participate in regular nonweight-bearing exercise (seated weights, exercise bike, or swimming), and keep their scheduled at risk foot care podiatric appointments. We also reviewed the possible role for additional Rx foot/leg bracing or surgical intervention when/if medically warranted.? ??Screening/Special Tests:?Fall Risk?Screening:?No falls in the past year ?FALLS: Screening for Future Fall Risk?Have you had any falls with injury in the past year??No * Follow Up:?prn,To see Dr Ferreira taker * Images: * Sign off status: Completed true * Provider:?Tono Skinner DPM Date:?2024 Generated for Merrick alvarado/Pepe/Onelitting on:?06/10/2024 11:56 AM EDT History and Physical [...] at Forefoot, at Midfoot, B/L Dermatologic ULCER: NOW shows comple te re-epithelialization, dorsal proximal IPJ T1 Orthopedic FOOTWEAR EVALUATION: good condition MUSCLE STRENGTH: 5/5 all groups in a symmetrical fashion, B/L General Examination GENERAL APPEARANCE: Reveals a pleasant, alert, well nourished, well-developed, well hydrated individual, who demonstrates proper attention to hygiene/body habitus, and is in no acute distress, Pt serves as own historian for office visit today FOOT EXAM: Lower Extremity Neurological Exa m performed:: Yes Date: 04/22/2024 ORIENTED: person, place, and t tamara Footwear Evaluation Footwear Evaluation performe d:: Yes Ophthalmology Referral DIABETES EYE EXAM Procedure Perform ed:: Yes ?Date of Exam Performed: 10/10/2023 Diabetic Retinopathy Screening:: Yes Retinal Screening Performed:: Yes Findings of Diabetic Eye Exam:: no retin opathy
--- OUTSIDE RECORDS SUMMARY | 2024-06-10 11:56 | XMS_ITS | Clinical Summary ---
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, left leg 11/21/202311/04 Immunizations Immunization Administration Dates Next Due Influenza, Trivalent, Adjuvanted, PF (Deferred: Patient Refused - defer outpatient) Family History [...] the past 12 months has th e [employer], gas, oil, or water [employer] threatened to shut off services in your [...] Info) Description 09/09/2024 1:00 PM EDT Appointment [facility] [address] [place] [address] 09/09/2024 1:45 PM EDT Appointment [facility] [address] [place] [address] 09/09/2024 2:30 PM EDT Appointment [facility] [address] [place] [address] 09/09/2024 3:30 PM EDT Follow-Up [facility] [address] [place] [address] Adjunct Professor Of [place]. History: Raman Scruggs, THERESE [address] [place] [address] Health Maintenance Due Date Last Done Comments Cologuard 1955 Colon Cancer Screening 1955 Colonoscopy 1955 FOBT / Fit Test 1955 Hepatitis C Screening 1955 Sigmoidoscopy 1955 Zoster Vaccines (1 of 2) 2003 RSV Vaccine (60+ years old and patients) (1 - Risk 60-74 years 1-dose series) 2013 DTaP,Tdap,and Td Vaccines (1 - Tdap) 11/28/2014 11/27/2014 Abdominal Aortic Aneurysm (AAA) Screening 2018 Pneumococcal Vaccine: 50+ Years (2 of 2 - PPSV23) 12/23/2019 12/22/2018 COVID-19 Vaccine (4 - 2023-25 season) 2023 03/10/2021, 10/27/2020, 10/06/2020 Alcohol/Substance Use Screening 03/05/2024 Depression Screening and Follow-Up 03/05/2024 Health Care Proxy Review 03/05/2024 Social Drivers of Health Annual Screening 03/05/2024 Influenza Vaccine (Season Ended) 2024 01/19/2022, 12/22/2018, 12/12/2017, Additional history exists Hepatitis B Vaccines Aged Out No long er eligible based on patient's age to complete this topic Medical Devices Implanted Type Area Tape Keller Operator Device Identifier Shelf Expiration Date Model / Serial / Lot System Closure And Repair Suture-Mediate d Perclose Prostyle - [id number] Implanted:Qty: 1 on 08/09/2021 by Denton Palacios MD at [facility] Implant Left: Leg [employer] 01/02/2023 [id number] / / System Closure And Repair Suture-Mediate d Perclose Prostyle - S0 - [id number] Implanted:Qty: 1 on 09/13/2021 by Denton Palacios MD at [facility] Implant Left: Leg [employer] [id number] 07/03/2023 25636-80 / 0 / [id number] System Closure And Repair Suture-Mediate d Perclose Prostyle - S0 - [id number] Implanted:Qty: 1 on 11/13/2023 by Denton Palacios MD at [facility] Implant N/A: Groin [employer] [id number] 09/01/2025 99175-93 / 0 / [id number] Patch Pericardium Bovine .3bey5hh Photofix - [id number] Implanted:Qty: 1 on 11/21/2023 by Denton Palacios MD at [facility] Implant Left: Arterial [employer] 06/08/2025 PFP0.8X8 / / [id number] Patch Pericardium Bovine .3kjd5op Photofix - [id number] Implanted:Qty: 1 on 11/21/2023 by Denton Palacios MD at [facility] Implant Left: Arterial [employer] 05/11/2025 PFP0.8X8 / / [id number] Stent System Vascular 7.2w816eh Biomimics 3d - S0 - [id number] Implanted:Qty: 1 on 08/09/2021 by Denton Palacios MD at [facility] Stent Left: Leg [employer] [id number] 10/21/2022 [id number] -1 1 / 0 / [id number] Stent System Vascular 6.2p984gf Biomimics 3d - S0 - [id number] Implanted:Qty: 1 on 09/13/2021 by Denton Palacios MD at [facility] Stent Right: Leg [employer] [id number] 02/09/2023 912792 -1 0 / 0 / [id number] Stent Icast Covered [id number] - [id number] - [id number] Implanted:Qty: 1 on 11/13/2023 by Denton Palacios MD at [facility] Stent Left: Arterial F[employer]a [employer] [facility] [id number] 12/13/2025 19408 / [id number] 0 / Insurance MCR REPLACE PPO Advance Directives * Full [...] 8:48 AM 09/06/2021 4:36 PM Care Teams Model Photographers' Relationship Specialty Start Date End Date Jas Casarez [address] [place] [address] PCP - General 07/19/21
--- OUTSIDE RECORDS SUMMARY | 2024-06-10 11:57 | XMS_ITS ---
Author Organization [facility] Address [address] [facility] [place] [address] Care Team Providers Care Bundle Wrapper Name Role Phone Jas Stone Primary Care Provider Unav Bryanna Chavarria Unavailable [phone] Allergies Allergen (clinical drug ingredient) Drug/Non Drug [...] Ordered Date Performed Result Body Sit e [id number] SKIN/TISSUE 03/17/2024 N/A Encounters Encounter Location Date Provider Diagnosis [facility] [place] [address] [place] [address] 03/17/2024 Bryanna Garcia Skin ulcer of toe [...] Treatment Pending Test Test Name Order Date [id number] SKIN/TISSUE 03/17/2024 Next Appt Details Follow Up: 1 Week, Reason: Provider Name:Tono Skinner , 07/25/2024 10:30:00 AM, [address] [place] [address], [address], Procedure Notes * Category Sub-Category Detail Notes [...] of the wound post debriement is stable (77986) Progress Notes * Lino OLIVEIRA KDOB: [birth year] (69 yo M)Acc No.[id number]:03/17/2024 Progress Notes Patient:?Lino OLIVEIRA Provider:?Bryanna Garcia DPM :1955???Age:69 Y???Sex:Male Wei e:03/17/2024 Address:[address] [place] [address], [facility] Pcp:LADONNA Arreola Subjective: * Chief Complaints: [...] ?Exercise: yes. ?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: . 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 * Medications:?TakingEliquis C ardizem Acetaminophen-Codeine 300-30 [...] anaphylaxisyes[Allergies Verified] Objective: * Vitals:?Ht:5ft9in, Wt:273, B ID:40.31, Shoe size:12EEE, BP:120/81mm Hg, BS:108, Ht-cm: 175.26 cm, Wt-k.83 kg. * ???Past Orders: ???Lab:HEMOGLOBIN A1C (GLYCO HEMOGLOBIN) (Order Date - 02/04/2024) (Collection Date & Time - 12/04/2023 11:27 AM) ? Value Reference Range ?HEMOGLOBIN A1C % (HH) 5.4 ?TOTAL HEMOGLOBIN (HGBA1C) 5.4 * Examination: ???Dermatologic: [...] of the wound post debriement is stable (28113).? * Procedure Codes:?74578 DEBRI DE SKIN/TISSUE, Modifiers: XS * Preventive Medicine:? ??Counseling:?Ulcer:?Given recent successful results to treatment, The patient is to cont the local wound care as directed. Daily medihoney/ DSD and ambulation in surgical shoe only..? * Follow Up:?1 Week * Images: * Sign off status: Completed true * Provider:?Bryanna Garcia DPM Date:?0 03/17/2024 Generated for Merrick alvarado/Pepe/eTransmitting on:?06/10/2024 11:56 AM [...]
== END 2024-06-10 11:09 | disposition home or self-care (01) ==
LOC: HO.PMC 10:12
PROVIDERS: PCP Nurse Practitioner Family; Visit Provider Nurse Practitioner Family
DX: E11.40 Type 2 diabetes mellitus with diabetic neuropathy, unspecified (principal); M79.671 Pain in right foot; M79.672 Pain in left foot; G89.4 Chronic pain syndrome; M96.1 Postlaminectomy syndrome, not elsewhere classified; L97.529 Non-pressure chronic ulcer of other part of left foot with unspecified severity
CPT/HCPCS: 99214; G2211

== ENCOUNTER → 2024-06-10 10:12 | Outpatient (BNVA) | payer MEDICARE, SELFPAY | PROVIDERS: PCP Nurse Practitioner Family; Visit Provider Nurse Practitioner Family | DX: Z51.81 Encounter for therapeutic drug level monitoring (principal); E11.40 Type 2 diabetes mellitus with diabetic neuropathy, unspecified; M79.671 Pain in right foot; M79.672 Pain in left foot; M96.1 Postlaminectomy syndrome, not elsewhere classified; G89.4 Chronic pain syndrome; Z96.82 Presence of neurostimulator; Z79.891 Long term (current) use of opiate analgesic; Z79.899 Other long term (current) drug therapy | CPT/HCPCS: 99212 ==

== ENCOUNTER 2024-06-25 10:56 | Outpatient (AMB) | payer MEDICARE, SELFPAY ==
[2024-06-25 11:04] VITALS: BP 124/64; PULSE 63; RESP 18; TEMP 36.9; O2SAT 96; BMI 39.1
--- NOTE | 2024-06-25 11:04 | A.OFFPC_ITS ---
Vital Signs 06/25/24 11:04 Height 5 ft 9 in Weight 265 lb BMI 39.1 BP 124/64 Blood Pressure Location Rt brachial Position Sitting Respiration 18 Pulse 63 Pulse Source Pulse Oximeter Temp 98.5 F Temp Source Oral Pulse Oximetry (%) 96 Oxygen Delivery Method Room Air Intake Visit Reasons: Rescheduled PE Intake Note: Pt is here today for PE. Allergies NSAIDS (Non-Steroidal Anti-Inflamma Allergy (Severe, Verified 06/25/24 11:05) Anaphylaxis methadone Allergy (Intermediate, Verified 06/25/24 11:05) Vomiting Medication List - Last Reconciled 06/25/24 by Jas Casarez, VP CARDIOVASCULAR SERVICE LINE- acetaminophen-codeine 300-30 mg 1 tab PO BID PRN 30 days apixaban (Eliquis) 5 mg PO BID 90 days aspirin 81 mg PO DAILY bethanechol chloride mg PO blood sugar diagnostic (FreeStyle Test strips) Test blood sugar once a day cholecalciferol (vitamin D3) 50 mcg PO DAILY 90 days CPAP Machine/Device (CPAP) use daily NS [Diabetic shoes with 3 pair of custom orthotics wear daily] diclofenac sodium 1% 4 grams topical QID PRN 30 days diltiazem HCl ER 120 mg PO BID 90 days epinephrine (EpiPen) 0.3 mg (0.3 mL) IM Q10M PRN ketoconazole 2% 1 appl topical 2XW lidocaine-prilocaine 2.5-2.5 % 1 appl topical ONCE metformin ER 500 mg PO DAILY 90 days oxybutynin chloride ER 10 mg PO DAILY pravastatin 40 mg PO DAILY prednisone 10 mg PO DAILY ropinirole mg PO semaglutide 2 mg (0.75 mL) subcut QWEEK 30 days tadalafil 20 mg PO DAILY PRN tamsulosin 0.4 mg PO DAILY 90 days venlafaxine ER 150 mg PO DAILY 90 days Tobacco use date assessed: 06/25/24 Fall risk assessment: No Falls in past year Last assessed Fall Risk: 06/25/24 Dental Screening Dental Screen Date: 06/25/24 Did you have a dental visit in the last 12 months?: Yes Did you have a dental problem in the last 6 months where you did not have access to dental care?: No Was dental information given to patient?: Patient has dentist HPI Rescheduled PE HPI Details History of Present Illness The patient is a 69-year-old male presenting with a request for a physical examination and management of chronic conditions, including diabetes and cardiovascular health. His medical history includes Type 2 Diabetes Mellitus currently being managed with a GLP-1 agonist, resulting in weight loss. He has an amputation of the left first toe and is under regular vascular care. 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 Denials include chest pain, increased shortness of breath, gastrointestinal bleeding, significant changes in bowel habits, and any suicidal ideation, dizziness, or disturbances in vision or cognition. Routine screenings, including colon and eye exams, are current, and further laboratory requisitions are encouraged. Health Maintenance - Colon screening: Up to date - Eye exam: Up to date - Encouraged lab work prior to August t - Weight management: Active weight loss on GLP-1 agonist Social History Review of Systems - Cardiovascular: Denies chest pain; irr egular pulse noted - Respiratory: Denies shortness of breat h; lungs clear bilaterally - Gastrointestinal: Denies blood in stoo l, constipation, diarrhea - Neurological: Denies dizziness, headac hes - Mental Health: Denies suicidal ideatio n - Vision: Denies blurred vision Physical Exam General: Cooperative, healthy appearing, comfortable, no acute distress and well developed, obese Orientation: Patient oriented x3 Limitations: No limitations Head: Normal to inspection Ears: Hearing grossly normal bilaterally Nose: Normal external nose present Face and sinus: Normal facial exam Eyes: Appearance normal, both eyes and all related structures Neck: Normal visual inspection and Yes full ROM Respiratory: Lungs are fairly clear bilaterally Cardiovascular: Irregular, irregular heart rhythm. Normal S1 and S2 GI: Normal to inspection. Soft to palpation and nontender Skin: No rashes or lesions noted Neuro: Patient oriented x3 Extremities: Left first toe amputated. Weak pedal pulse noted bilaterally. Normal to inspection Results Plan The plan involves providing a thorough physical examination and ensuring the patient's chronic conditions, including Type 2 Diabetes Mellitus, atrial fibrillation, and prostate health, remain well-managed. Continued management under a vascular specialist is necessary for post-amputation care. Rheumatology will continue surveillance for PMR management. The patient's weight loss with GLP-1 agonist provides a positive trajectory in diabetes management. Routine screenings, such as those for colon and eye health, confirm preventive care is current. Lab work prior to the August follow-up will serve as an effective means of ongoing monitoring and care management. Discussion Notes During our discussion, I emphasized the importance of ongoing chronic disease management, especially with his diabetes, atrial fibrillation, and prostate health concerns. We reviewed the effectiveness of the GLP-1 agonist in promoting weight loss and encouraged the continuation of this therapy due to its favorable outcomes. The necessity of maintaining monitoring through specialists in vascular health, cardiology, urology, and rheumatology for comprehensive care w as reaffirmed. I have advised him to pursue routine laboratory work prior to our August appointment to better evaluate his health status and make necessary adjustments. Future follow-ups are planned to ensure his overall health management remains optimal. Patient Instructions - Continue using GLP-1 agonist as prescr ibed - Schedule lab work before the P[place] visi t - Attend regular follow-up appointments with specialists - Maintain scheduled screenings, includi ng colon and eye exams - Monitor any concerning changes and rep ort promptly [facility] Medical History Amputation of left great toe Cellulitis Dry gangrene Spinal cord stimulator status Polymyalgia rheumatica PAD (peripheral artery disease) Ascending aorta dilatation Sleep apnea Type 2 diabetes mellitus with peripheral neuropathy Diabetes mellitus due to underlying condition with diabetic neuropathy, without long-term current use of insulin Arterial insufficiency Iatrogenic [place]'s disease Morbid obesity Atherosclerotic cardiovascular disease Diabetic neuropathy associated with type 2 diabetes mellitus 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 Seronegative rheumatoid arthritis Obesity (BMI 30-39.9) Vitamin D deficiency Diabetes type 2, controlled Osteopenia Adrenal 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 Painful total knee replacement, right Surgical History Status post amputation History of endarterectomy History of esophagogastroduodenoscopy (EGD) H/O colonoscopy Hx of coronary angiogram History of back surgery (~2018) History of knee replacement procedure of right knee History of knee replacement procedure of left knee Hx of cardiac cath Family History Father Angina pectoris Mother Stroke Social History Household Members: Spouse Housing: House Are you a primary doggy daycare activities director to a significant other at home: No Do you presently have visiting nurse or other home services: No 75 years or older and lives alone: No Alcohol intake: former Year quit: 2023 Patient Tobacco Use Status: Former Tobacco user Years Smoked: 20 years ago e-Cigarette/Vaping Use: Never Used Second Hand Smoke Exposure: No Substance Use Type: Marijuana service: No Current occupational status: retired Cognitive needs: No Hearing needs: No Vision needs: No Questionnaire Thrive Questionnaire Date Thrive assessed: 04/07/24 Within the past 12 months, did the food you bought not last and you didn't have the money to get more?: I choose not to answer this question THRIVE Score: 0 AUDIT C Alcohol Use Questionnaire (AUDIT-C) 1. How often do you have a drink containing alcohol?: Monthly or less 2. How many drinks containing alcohol do you have on a typical day when you are drinking?: 1 or 2 3. How often do you have six or more drinks on one occasion?: Never Total Score: 1 Score Reviewed/Action Taken: Yes AGUSTINA-7 AMB Questionnaire AGUSTINA-7 Date AGUSTINA - 7 assessed: 04/07/24 Source: Developed by Drs. Sourav Perez, Cyndi Kim, Tino Alvares and colleagues, with an educational melissa from [employer]. Physical exam (Primary Care) Vital Signs: Last Vital Signs Temp 98.5 F 06/25/24 11:04 Pulse 63 06/25/24 11:04 Resp 18 06/25/24 11:04 BP 124/64 06/25/24 11:04 Pulse Ox 96 06/25/24 11:04 Oxygen Delivery Method Room Air 06/25/24 11:04 BMI result Body Mass Index 39.1 Tobacco/Smoking Status: Tobacco use Status Tobacco use date assessed 06/25/24 06/25/24 11:11 Patient Tobacco Use Status Former Tobacco user 06/25/24 11:11 e-Cigarette/Vaping Use Never Used 06/25/24 11:11 Thrive Assessment: Date of Thrive Assessment Date Thrive assessed 04/07/24 06/25/24 11:11 Immunizations pneumoc 20-willis conj-dip cr(PF) 0.5 mL IM syringe Performing Provider: HARINI Ordonez Performing Location: [facility] Administered by: Frances Eden CMA on 06/25/24 11:58 Dose Route Admin Location Dispensed Lot Number Expiration Date NDC Dark Room Attendant 0.5 mL IM Left Deltoid 0.5 mL [id number] 05/02/25 5602-3035-17 WYETH/PFIZER VIS Given Date VIS Provided VIS Publication Date 06/25/24 Single Vaccine 21 Eligibility Eligibility Date Funding Source Not [facility] Eligible 06/25/24 Private Coding Level of Care Code Est Pt Prev Care >65y(03914) Diagnoses Physical exam Z00.00 Type 2 diabetes mellitus with peripheral neuropathy E11.42 Assessment & Plan Assessment & Plan (1) Physical exam: Code(s): Z00.00 - Encounter for general adult medical examination without abnormal findings Category: Medical (2) Type 2 diabetes mellitus with peripheral neuropathy: Code(s): E11.42 - Type 2 diabetes mellitus with diabetic polyneuropathy Category: Medical Plan . Orders: Orders Comprehensive [place]. Panel Fast Today Z00.00 - Encounter for general adult medical examination without abnormal findings Hemoglobin A1c Today E11.42 - Type 2 diabetes mellitus with diabetic polyneuropathy, Z00.00 - Encounter for general adult medical examination without abnormal findings Complete Blood Count Auto Diff Today Z00.00 - Encounter for general adult medical examination without abnormal findings TSH reflex Free T4 Today Z00.00 - Encounter for general adult medical examination without abnormal findings UA CC w/rflx Micro + Cult Today Z00.00 - Encounter for general adult medical examination without abnormal findings Lipid Panel Today Z00.00 - Encounter for general adult medical examination without abnormal findings Pneumococcal 20 Immunization Today Z23 - Encounter for immunization Medications: New pneumoc 20-willis conj-dip cr(PF) 0.5 mL IM ONCE 0.5 mL 0RF Z23 - Encounter for immunization
--- OUTSIDE RECORDS SUMMARY | 2024-06-25 13:10 | XMS_ITS | Referral Summary ---
Author Organization [facility] Address [address] [place] [address] Care Team Providers Care Soap Maker Name Role Phone Mohamudbakari Jas Winter Primary [...] Date Diagnosed Date Resolved Date Atherosclerosis of [place] of extremities with gangrene, left [...] half, previously drank 9 drinks per week [facility] Utilities Answer Date Recorded In the past 12 months has th e electric, gas, oil, or water NPS threatened to shut off services in your [...] Info) Description 09/09/2024 1:00 PM EDT Appointment [facility] Vascular Lab [address] [place] [address] 09/09/2024 1:45 PM EDT Appointment [facility] [address] [place] [address] 09/09/2024 2:30 PM EDT Appointment [facility] [address] [place] [address] 09/09/2024 3:30 PM EDT Follow-Up [facility] ACC Building Vascular Surgery [address] [place] [address] Riprap Man: Raman Scruggs NP [address] [place] [address] Medical Devices Implanted Type Area Automotive Mechanic Device Identifier Shelf Expiration Date Model / Serial / Lot System Closure And Repair Suture-Mediate d Perclose Prostyle - [id number] Implanted:Qty: 1 on 08/09/2021 by Denton Palacios MD at [facility] Implant Left: Leg [employer] 01/02/2023 [id number] / / System Closure And Repair Suture-Mediate d Perclose Prostyle - S0 - [id number] Implanted:Qty: 1 on 09/13/2021 by Denton Palacios MD at [facility] Implant Left: Leg [employer] [id number] 07/03/2023 10879-14 / 0 / [id number] System Closure And Repair Suture-Mediate d Perclose Prostyle - S0 - [id number] Implanted:Qty: 1 on 11/13/2023 by Denton Palacios MD at [facility] Implant N/A: Groin [employer] [id number] 09/01/2025 67795-11 / 0 / [id number] Patch Pericardium Bovine .6tar3yb Photofix - [id number] Implanted:Qty: 1 on 11/21/2023 by Dentno Palacios MD at [facility] Implant Left: Arterial [employer] 06/08/2025 PFP0.8X8 / / [id number] Patch Pericardium Bovine .6xqm0hh Photofix - [id number] Implanted:Qty: 1 on 11/21/2023 by Denton Palacios MD at [facility] Implant Left: Arterial [employer] 05/11/2025 PFP0.8X8 / / [id number] Stent System Vascular 7.5u270bd BiomimJob App Plus 3d - S0 - [id number] Implanted:Qty: 1 on 08/09/2021 by Denton Palacios MD at [facility] Stent Left: Leg [employer] [id number] 10/21/2022 786019 -1 1 / 0 / [id number] Stent System Vascular 6.2g596cv BiomimJob App Plus 3d - S0 - [id number] Implanted:Qty: 1 on 09/13/2021 by Denton Palacios MD at [facility] Stent Right: Leg [employer] [id number] 02/09/2023 234944 -1 0 / 0 / [id number] Stent Icast Covered [id number] - [id number] - [id number] Implanted:Qty: 1 on 11/13/2023 by Denton Palacios MD at [facility] Stent Left: Arterial CloudOpt [facility] [id number] 12/13/2025 69116 / [id number] 0 / [place] [address] BCBS MCR REPLACE PPO Advance Directives * [...] 8:48 AM 09/06/2021 4:36 PM Care Teams Soap Maker Relationship Specialty Start Date End Date Jas Casarez [address] [place] [address] PCP - General 07/19/21
--- OUTSIDE RECORDS SUMMARY | 2024-06-25 13:10 | XMS_ITS ---
Author Organization [facility] Address [address] [place] [address] Care Team Providers Care Brick Burner Name Role Phone Jas Stone Primary Care Provider Unav Bryanna Chavarria Unavailable [phone] Allergies Allergen (clinical drug ingredient) Drug/Non Drug [...] Ordered Date Performed Result Body Sit e 73050-OZONJXI SKIN/TISSUE 03/17/2024 N/A Encounters Encounter Location Date Provider Diagnosis [facility] [place] [address] [place] [address] 03/17/2024 Bryanna Garcia Skin ulcer of toe [...] Treatment Pending Test Test Name Order Date 05654-DXJEVAL SKIN/TISSUE 03/17/2024 Next Appt Details Follow Up: 1 Week, Reason: Provider Name:Tono Skinner , 07/25/2024 10:30:00 AM, [address] [place] [address], [id number], Procedure Notes * Category Sub-Category Detail Notes [...] of the wound post debriement is stable (28893) Progress Notes * Lino OLIVEIRA KDOB: [birth year] (69 yo M)Acc No.[id number]:03/17/2024 Progress Notes Patient:?Lino OLIVEIRA Provider:?Bryanna Garcia DPM :1955???Age:69 Y???Sex:Male Wei e:03/17/2024 Address:[address] [place] [address], [facility] Pcp:LADONNA Arreola Subjective: * Chief Complaints: [...] ?Exercise: yes. ?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: . 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 * Medications:?TakingEliquis C ardizem Acetaminophen-Codeine 300-30 [...] * Vitals:?Ht:5ft9in, Wt:273, B MN:40.31, Shoe size:12EEE, BP:120/81mm Hg, BS:108, Ht-cm: 175.26 [...] of the wound post debriement is stable (74856).? * Procedure Codes:?86154 DEBRI DE SKIN/TISSUE, Modifiers: XS * Preventive Medicine:? ??Counseling:?Ulcer:?Given recent successful results to treatment, The patient is to cont the local wound care as directed. Daily medihoney/ DSD and ambulation in surgical shoe only..? * Follow Up:?1 Week * Images: * Sign off status: Completed true * Provider:?Bryanna Garcia DPM Date:?0 03/17/2024 Generated for Merrick alvarado/Pepe/eTransmitting on:?06/25/2024 01:10 PM EDT History and Physical Notes * HPI [...]
--- OUTSIDE RECORDS SUMMARY | 2024-06-25 13:10 | XMS_ITS | Clinical Summary ---
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[place] of extremities with gangrene, left [...] half, previously drank 9 drinks per week [facility] Utilities Answer Date Recorded In the past 12 months has th e [employer], gas, oil, or water [employer] threatened to shut off services in your [...] Info) Description 09/09/2024 1:00 PM EDT Appointment [facility] ACC Vascular Lab [address] [place] [address] 09/09/2024 1:45 PM EDT Appointment [facility]ascular Lab [address] [place] [address] 09/09/2024 2:30 PM EDT Appointment [facility]ascular Lab [address] [place] [address] 09/09/2024 3:30 PM EDT Follow-Up [facility] ACC Building Vascular Surgery [address] [place] [address] Suit Attendant: Raman Scruggs, THERESE [address] [place] [address] Health Maintenance Due Date Last Done Comments [...] this topic Medical Devices Implanted Type Area Track Repairer Helper Device Identifier Shelf Expiration Date Model / Serial / Lot System Closure And Repair Suture-Mediate d Perclose Prostyle - [id number] Implanted:Qty: 1 on 08/09/2021 by Denton Palacios MD at [facility] Implant Left: Leg [employer] 01/02/2023 26202-01 / / System Closure And Repair Suture-Mediate d Perclose Prostyle - S0 - [id number] Implanted:Qty: 1 on 09/13/2021 by Denton Palacios MD at [facility] Implant Left: Leg [employer] [id number] 07/03/2023 46658-72 / 0 / [id number] System Closure And Repair Suture-Mediate d Perclose Prostyle - S0 - [id number] Implanted:Qty: 1 on 11/13/2023 by Denton Palacios MD at [facility] Implant N/A: Groin [employer] [id number] 09/01/2025 63409-34 / 0 / [id number] Patch Pericardium Bovine .0bsl4uu Photofix - [id number] Implanted:Qty: 1 on 11/21/2023 by Denton Palacios MD at [facility] Implant Left: Arterial Artivion [employer] 06/08/2025 PFP0.8X8 / / [id number] Patch Pericardium Bovine .5wcm4uy Photofix - [id number] Implanted:Qty: 1 on 11/21/2023 by Denton Palacios MD at [facility] Implant Left: Arterial Artivion Inc[employer] 05/11/2025 PFP0.8X8 / / [id number] Stent System Vascular 7.9u156qy Biomimics 3d - S0 - [id number] Implanted:Qty: 1 on 08/09/2021 by Denton Palacios MD at [facility] Stent Left: Leg [employer] [id number] 10/21/2022 488397 -1 1 / 0 / [id number] Stent System Vascular 6.8w283ja Biomimics 3d - S0 - [id number] Implanted:Qty: 1 on 09/13/2021 by Denton Palacios MD at [facility] Stent Right: Leg [employer] [id number] 02/09/2023 991867 -1 0 / 0 / [id number] Stent Icast Covered [id number] - [id number] - [id number] Implanted:Qty: 1 on 11/13/2023 by Denton Palacios MD at [facility] Stent Left: Arterial Sling Media [facility] [id number] 12/13/2025 45879 / [id number] 0 / Insurance MCR REPLACE PPO Advance [...] 8:48 AM 09/06/2021 4:36 PM Care Teams Hoisting Engineer Pile Driving Relationship Specialty Start Date End Date Jas Casarez [address] [place] [address] PCP - General 07/19/21
--- OUTSIDE RECORDS SUMMARY | 2024-06-25 13:10 | XMS_ITS ---
Author Organization [facility] Address [address] [facility] [place] [address] Care Team Providers Care Recordist Chief Name Role Phone Jas Stone Primary Care Provider Bryanna Ley Unavailable [phone] Tono Skinner Unavailable [phone] Allergies Allergen (clinical drug ingredient) Drug/Non Drug [...] 025 Encounters Encounter Location Date Provider Diagnosis [facility] [place] [address] [place] [address] 04/22/2024 Tonograbiel MorinSusanne Skin ulcer of toe [...] Name:Tono Skinner , 07/25/2024 10:30:00 AM, [address] [place], [address], Progress Notes * TEELino KDOB: [birth year] (69 yo M)Acc No.[id number]:04/22/2024 Progress Notes Patient:?Lino OLIVEIRA Provider:?Tono Skinner DPM :1955???Age:69 Y???Sex:Male Wei e:04/22/2024 Address:[address] [place], [place] [address] Pcp:LADONNA Arreola Subjective: * Chief Complaints: * [...] ?Exercise: yes. ?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: . 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 ???Drug/Alcohol:?AUDIT-C (Standard)?Did you have a drink [...] anaphylaxisyes[Allergies Verified] Objective: * Vitals:?Ht:5ft9in, Wt:273, B AR:40.31, Shoe size:12EEEE, BP:117/70mm Hg, BS:150, Ht-cm: 175.26 [...] Skinner DPM Date:?2024 Generated for Merrick alvarado/Pepe/Onelitting on:?06/25/2024 01:09 PM EDT History and Physical Notes * [...]
--- OUTSIDE RECORDS SUMMARY | 2024-06-25 13:10 | XMS_ITS ---
Author Organization [facility] Address [address] [facility] [place] [address] Care Team Providers Care Framing Inspector Name Role Phone Jas Stone Primary Care Provider Unav Bryanna Chavarria Unavailable [phone] Allergies Allergen (clinical drug ingredient) Drug/Non Drug [...] Ordered Date Performed Result Body Sit e 83549-ZXVTLTW SKIN/TISSUE 03/26/2024 N/A Encounters Encounter Location Date Provider Diagnosis [facility] [place] [address] [place] [address] 03/26/2024 Bryanna Garcia Skin ulcer of toe [...] Treatment Pending Test Test Name Order Date 11803-HKELYWZ SKIN/TISSUE 03/26/2024 Next Appt Details Follow Up: 4 Weeks, Reason: Provider Name:Tono Skinner , 07/25/2024 10:30:00 AM, [address] [place] [address], [phone], Procedure Notes * Category Sub-Category Detail Notes [...] of the wound post debriement is stable (47040) Progress Notes * Lino OLIVEIRA KDOB: [birth year] (69 yo M)Acc No.[id number]:03/26/2024 Progress Notes Patient:?Lino OLIVEIRA Provider:?Bryanna Garcia DPM :1955???Age:69 Y???Sex:Male Wei e:03/26/2024 Address:[address] [place] [address], [facility] Pcp:LADONNA Arreola Subjective: * Chief Complaints: * [...] ?Exercise: yes. ?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: . 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 * Medications:?TakingEliquis C ardizem Acetaminophen-Codeine 300-30 [...] anaphylaxisyes[Allergies Verified] Objective: * Vitals:?Ht:5ft9in, Wt:273, B IL:40.31, Shoe size:12EEE, BP:117/70mm Hg, Ht-cm: 175.26 cm, [...] of the wound post debriement is stable (05751).? * Procedure Codes:?39602 DEBRI DE SKIN/TISSUE, Modifiers: XS * Preventive Medicine:? ??Counseling:?Ulcer:?Given recent successful results to treatment, The patient is to cont the local wound care as directed. Daily medihoney/ DSD and ambulation in surgical shoe only..? * Follow Up:?4 Weeks * Images: * Sign off status: Completed true * Provider:?Bryanna Garcia DPM Date:?0 03/26/2024 Generated for Merrick alvarado/Pepe/eToctavioitting on:?06/25/2024 01:10 PM EDT History and Physical [...]
--- OUTSIDE RECORDS SUMMARY | 2024-06-25 13:10 | XMS_ITS | Patient Health Record ---
Author Organization [facility] Address [address] [facility] [place] [address] Care Team Providers Care Electrician Apprentice Powerhouse Name Role Phone Jas Stone Primary Care Provider Unav Bryanna Chavarria Unavailable [phone] Barrington Cramer Unavailable [phone] Tono Skinner Unavailable [phone] Allergies Allergen (clinical drug ingredient) Drug/Non Drug [...] (HH) 6.1 HEMOGLOBIN A1C (GLYCOHEMOGLO BIN) Reviewed date:03/26/2024 09:47:57 AM Interpretation: Performing Lab: Notes/Report: HEMOGLOBIN A1C % (HH) 5.4 HEMOGLOBIN A1C (GLYCOHEMOGLO BIN) Reviewed date:03/27/2024 02:26:20 PM Interpretation: Performing Lab: Notes/Report: HEMOGLOBIN A1C % (HH) 5.4 TOTAL HEMOGLOBIN (HGBA1C) 5.4 HEMOGLOBIN A1C (GLYCOHEMOGLO BIN) Reviewed date:04/22/2024 10:35:22 AM Interpretation: Performing Lab: Notes/Report: HEMOGLOBIN A1C % (HH) 5.4 Reason For Referral No Information Medications [...] Polyneuropathy due to type 2 diabetes mellitus (550536661) Type 2 diabetes mellitus with diabetic polyneuropathy (E11.42) Active confirmed Problem Acquired hammer toe of left foot (546563815542078 3) Hammertoe of left foot (M20.42) Active confirmed Problem Ischemic foot ulcer (922243923) Skin ulcer of toe of left foot with fat layer exposed (L97.522) Active confirmed Acute problem, Stable (1=3) Response to treatment - Improvement Vital Signs Blood pressure diastolic 70 mm Hg 04/22/2024 Height 5ft9in in 04/22/2024 Blood pressure systolic 117 mm Hg 04/22/2024 Weight 273 lbs 04/22/2024 BMI 40.31 kg/m2 04/22/2024 Procedures Procedure Date Ordered Date Performed Result Body Sit e 34591-WYQNXRU SKIN/TISSUE 10/24/2023 N/A 76496-FYJOJQI SKIN/TISSUE 11/02/2023 N/A 89085-XLGQHYI SKIN/TISSUE 02/04/2024 N/A 01497-KWURQJD SKIN/TISSUE 02/11/2024 N/A 76440 - Tenotomy, open flexor 02/11/2024 N/A 27923-KGJOEZH SKIN/TISSUE 02/20/2024 N/A 19993-LRQFUZW SKIN/TISSUE 03/10/2024 N/A 76258-PMJCIVQ SKIN/TISSUE 03/17/2024 N/A 00118-YSQMKGD SKIN/TISSUE 03/26/2024 N/A Encounters Encounter Location Date Provider Diagnosis [facility] [address] 10/24/2023 Barrington Cramer Skin disease L98.9 ; 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 ; Cellulitis of left lower limb L03.116 ; Dry gangrene I96 and Type 2 diabetes mellitus with diabetic polyneuropathy E11.[address] [address] 11/02/2023 Tono Susanne Skin ulcer of toe of left foot with fat layer exposed L97.522 ; Cellulitis of toe of left foot L03.032 and Type 2 diabetes mellitus with diabetic polyneuropathy E11.[address] [address] 11/07/2023 Barrington Cramer Skin disease L98.9 ; 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 ; Cellulitis of left lower limb L03.116 ; Dry gangrene I96 and Type 2 diabetes mellitus with diabetic polyneuropathy E11.[address] [address] 02/04/2024 Bryanna Garcia Skin ulcer of toe of left foot with fat layer exposed L97.522 ; Hammertoe of left foot M20.42 ; Type 2 diabetes mellitus with diabetic polyneuropathy E11.42 ; History of amputation Z89.9 and Peripheral vascular disease of extremity I73.[address] [address] 02/11/2024 Bryanna Garcia Hammer toe of left foot M20.42 ; Skin ulcer of toe of left foot with fat layer exposed L97.522 ; Type 2 diabetes mellitus with diabetic polyneuropathy E11.42 ; History of amputation Z89.9 and Peripheral vascular disease of extremity I73.[address] [address] 02/20/2024 Bryanna Garcia Hammer toe of left foot M20.42 ; Skin ulcer of toe of left foot with fat layer exposed L97.522 ; Type 2 diabetes mellitus with diabetic polyneuropathy E11.42 ; History of amputation Z89.9 ; Peripheral vascular disease of extremity I73.9 and Subacute osteomyelitis of left foot M86.[address] [address] 03/10/2024 Bryanna Garcia Skin ulcer of toe of left foot with fat layer exposed L97.522 ; Type 2 diabetes mellitus with diabetic polyneuropathy E11.42 ; History of amputation Z89.9 ; Peripheral vascular disease of extremity I73.9 and Subacute osteomyelitis of left foot M86.[address] [address] 03/17/2024 Bryanna Garcia Skin ulcer of toe of left foot with fat layer exposed L97.522 ; Type 2 diabetes mellitus with diabetic polyneuropathy E11.42 ; History of amputation Z89.9 ; Peripheral vascular disease of extremity I73.9 and Subacute osteomyelitis of left foot M86.[address] [address] 03/26/2024 Bryanna Garcia Skin ulcer of toe of left foot with fat layer exposed L97.522 ; Type 2 diabetes mellitus with diabetic polyneuropathy E11.42 ; History of amputation Z89.9 ; Peripheral vascular disease of extremity I73.9 and Subacute osteomyelitis of left foot M86.[address] [address] 04/22/2024 Tono Susanne Skin ulcer of toe of left foot with fat layer exposed L97.522 ; Type 2 diabetes mellitus with diabetic polyneuropathy E11.42 ; History of amputation Z89.9 and Peripheral vascular disease of extremity I73.[address] [address] 10/24/[address] [address] 10/24/[address] [address] 11/02/2023 Tono Skinner [address] [address] 11/07/[address] [address] 11/13/[address] [address] 02/04/2024 Bryanna Garcia [address] [address] 02/21/2024 Bryanna Garcia Assessments Encounter Date Diagnosis [...] X ray : Foot, right 3V 12/13/2021 64095-RYPILOT SKIN/TISSUE 02/04/2024 04840-WMIPPRF SKIN/TISSUE 10/24/2023 29809-FSSOVTL SKIN/TISSUE 11/02/2023 96375-NGMVAWH SKIN/TISSUE 02/11/2024 66311-MUAFOHS SKIN/TISSUE 02/20/2024 19900-BLWLKVY SKIN/TISSUE 03/10/2024 63281-VJRUYON SKIN/TISSUE 03/17/2024 44651-PSQYKIU SKIN/TISSUE 03/26/2024 X ray : Ankle, right 3V 12/13/2021 29372 - Tenotomy, open flexor 02/11/2024 Next Appt Details Provider Name:Tono Skinner , 07/25/2024 10:30:00 AM, [address] [place] [address], [phone], Insurance Providers Payer Name Payer Address Payer Phone Subscriber Number Group Number Insured Name Patient Relationship to Insured Coverage Start Date Coverage End Date [facility] 65 Medicare Preferred [address] [place] [address] [id number] Lino Nayak Self - patient is the [...] angiogram spinal stenosis surgery 2019 bilateral TKR 3949-1944 Stent Hospitalization History Reason Date(Month/Year) Capsasin treatment x30 minutes/4x year 1 st dosw 12/04/2021 Stent Right leg 09/13/2021 Stent Left leg 08/09/2021 Ultrasound Bilateral legs, angiogram Lef t leg 06/30/2021 Injection, [facility] 07/06/2021 MRI Left Foot 03/10/2021 Xray left Foot 03/04/2021
== END 2024-06-25 12:06 | disposition home or self-care (01) ==
LOC: HO.HMCC 10:57
PROVIDERS: PCP Nurse Practitioner Family; Visit Provider Nurse Practitioner Family
DX: Z00.00 Encounter for general adult medical examination without abnormal findings (principal); E11.42 Type 2 diabetes mellitus with diabetic polyneuropathy; Z23 Encounter for immunization

== ENCOUNTER → 2024-06-25 10:56 | Outpatient (BNVA) | payer MEDICARE, SELFPAY | PROVIDERS: PCP Nurse Practitioner Family; Visit Provider Nurse Practitioner Family | DX: Z00.00 Encounter for general adult medical examination without abnormal findings (principal); E11.42 Type 2 diabetes mellitus with diabetic polyneuropathy; M35.3 Polymyalgia rheumatica; Z23 Encounter for immunization | CPT/HCPCS: 90471; 90677; 99397 ==

== ENCOUNTER 2024-08-01 07:33 | Outpatient (REF) | payer MEDICARE, SELFPAY ==
--- OUTSIDE RECORDS SUMMARY | 2024-08-01 07:35 | XMS_ITS | Clinical Summary ---
Author Organization [facility] Address [address] [place] [address] Care Team Providers Care Data Capture Clerk Name Role Phone NaomymarianaJas villegas Moy Primary [...] Date Diagnosed Date Resolved Date Atherosclerosis of [place] ar teries of extremities with gangrene, left [...] half, previously drank 9 drinks per week [facility] Utilities Answer Date Recorded In the past 12 months has th e [address], gas, oil, or water [employer] threatened to shut off services in your [...] Care Team (Late st Contact Info) Description 09/08/2024 8:00 AM EDT Appointment [facility] Vascular Lab [address] [place] [address] 09/08/2024 8:45 AM EDT Appointment [facility]ascular Lab [address] [place] [address] 09/08/2024 10:15 AM EDT Appointment [facility] Vascular Lab [address] [place] [address] 09/08/2024 11:30 AM EDT Follow-Up [facility] ACC Building Vascular Surgery [address] [place] [address] Rug Cleaner: Rosanna Lau, THERESE [address] [place] [address] Health Maintenance Due Date Last Done Comments [...] PPSV23) 12/23/2019 12/22/2018 COVID-19 Vaccine (4 - 2024-25 season) 2023 03/10/2021, 10/27/2020, 10/06/2020 Alcohol/Substance Use Screening 03/05/2024 Depression Screening and Follow-Up 03/05/2024 Health Care Proxy Review 03/05/2024 Social Drivers of Health Annual Screening 03/05/2024 Influenza Vaccine (Season Ended) 2024 01/19/2022, 12/22/2018, 12/12/2017, Additional history exists Hepatitis B Vaccines Aged Out No long er eligible based on patient's age to complete this topic Medical Devices Implanted Type Area Utility Worker Production Device Identifier Shelf Expiration Date Model / Serial / Lot System Closure And Repair Suture-Mediate d Perclose Prostyle - [id number] Implanted:Qty: 1 on 08/09/2021 by Denton Palacios MD at [facility] Implant Left: Leg [employer] 01/02/2023 89524-69 / / System Closure And Repair Suture-Mediate d Perclose Prostyle - S0 - [id number] Implanted:Qty: 1 on 09/13/2021 by Denton Palacios MD at [facility] Implant Left: Leg [employer] [id number] 07/03/2023 36717-96 / 0 / [id number] System Closure And Repair Suture-Mediate d Perclose Prostyle - S0 - [id number] Implanted:Qty: 1 on 11/13/2023 by Denton Palacios MD at [facility] Implant N/A: Groin [employer] [id number] 09/01/2025 25274-83 / 0 / [id number] Patch Pericardium Bovine .8zfo7wx Photofix - [id number] Implanted:Qty: 1 on 11/21/2023 by Denton Palacios MD at [facility] Implant Left: Arterial [employer] 06/08/2025 PFP0.8X8 / / [id number] Patch Pericardium Bovine .6cxh9um Photofix - [id number] Implanted:Qty: 1 on 11/21/2023 by Denton Palacios MD at [facility] Implant Left: Arterial [employer] 05/11/2025 PFP0.8X8 / / [id number] Stent System Vascular 7.9q750hc BiomAquacue 3d - S0 - [id number] Implanted:Qty: 1 on 08/09/2021 by Denton Palacios MD at [facility] Stent Left: Leg [facility] MEDICAL [id number] 10/21/2022 602782 -1 1 / 0 / [id number] Stent System Vascular 6.3b441rr Biomimics 3d - S0 - [id number] Implanted:Qty: 1 on 09/13/2021 by Denton Palacios MD at [facility] Stent Right: Leg [facility] MEDICAL [id number] 02/09/2023 233948 -1 0 / 0 / [id number] Stent Icast Covered [id number] - [id number] - [id number] Implanted:Qty: 1 on 11/13/2023 by Denton Palacios MD at [facility] Stent Left: Arterial Modern Message [facility] [id number] 12/13/2025 01490 / [id number] / Insurance [facility] MCR REPLACE PPO Advance Directives * Full [...] 8:48 AM 09/06/2021 4:36 PM Care Teams Data Capture Clerk Relationship Specialty Start Date End Date Jas Casarez [address] [place] [address] PCP - General 07/19/21
[2024-08-01 10:36] LABS: MANUAL DIFF FLAG NO
[2024-08-01 11:21] LABS: Basophils Percent Auto 0.3 % (0-2); Eosinophils Absolute Auto 0.4 X10*3/uL (0.0-0.4); Eosinophils Percent Auto 5.1 % (0-4); Hematocrit 45.7 % (42.0-52.0); Hemoglobin 15.7 g/dl (14.0-18.0); Imm Gran Abs Auto 0.03 X10*3/uL (0.00-0.03); Imm Gran Pct Auto 0.4 % (0.0-0.4); Lymphocytes Absolute Auto 1.6 X10*3/uL (1.2-4.9); Lymphocytes Percent Auto 20.7 % (20-40); Mean Corpuscular HGB Conc 34.4 g/dl (31.0-36.0); Mean Corpuscular Hemoglobin 31.5 pg (27.0-33.0); Mean Corpuscular Volume 91.8 fL (80.0-98.0); Mean Platelet Volume 10.7 fL (9.4-12.4); Monocytes Absolute Auto 0.6 X10*3/uL (0.1-1.2); Monocytes Percent Auto 7.6 % (2-11); Neutrophils Absolute Auto 5.1 x10*3/uL (2.0-8.3); Neutrophils Percent Auto 65.9 % (45-73); Platelet Count 170 X10*3/uL (160-400); Red Blood Count 4.98 X10*6/uL (4.60-5.80); Red Cell Distribution Width 13.5 % (11.0-16.0); White Blood Count 7.7 X10*3/uL (4.8-10.8)
[2024-08-01 11:26] LABS: Estimated Average Glucose 117 mg/dL; Hemoglobin A1c % 5.7 % (<6.0)
[2024-08-01 11:46] LABS: Alanine Aminotransferase 21 U/L (0-40); Albumin Level 4.3 g/dL (3.5-5.0); Alkaline Phosphatase 55 U/L (39-117); Anion Gap 12 (12-20); Aspartate Amino Transferase 18 U/L (5-37); Bilirubin Total 1.1 mg/dL (0.0-1.0); Blood Urea Nitrogen 16 mg/dL (9-16); Calcium 9.8 mg/dL (8.4-10.2); Carbon Dioxide 25 mmol/L (22-29); Chloride 108 mmol/L (96-108); Cholesterol 172 mg/dL (<200); Estimated Glomerular Filt Rate > 60; Glucose Fasting 118 mg/dL (60-99); HDL Cholesterol 50 mg/dL (>40); LDL Cholesterol Calculated 97 mg/dL (<100); Potassium 4.1 mmol/L (3.3-5.1); Sodium 141 mmol/L (135-145); Total Protein 6.8 g/dL (6.5-8.0); Triglycerides 126 mg/dL (<150)
[2024-08-01 12:03] LABS: TSH reflex Free T4 0.87 uIU/mL (0.32-4.0)
== END 2024-08-01 07:34 | disposition home or self-care (01) ==
LOC: HO.10HDL 07:33
PROVIDERS: Visit Provider Nurse Practitioner Family
DX: Z00.00 Encounter for general adult medical examination without abnormal findings (principal); E11.42 Type 2 diabetes mellitus with diabetic polyneuropathy
CPT/HCPCS: 36415; 80053; 80061; 83036; 84443; 85025

== ENCOUNTER 2024-08-04 10:44 | Outpatient (AMB) | payer MEDICARE, SELFPAY ==
--- NOTE | 2024-08-04 10:50 | MHC.OFFVIS ---
Vital Signs 08/04/24 10:56 Height 5 ft 9 in Weight 262 lb BMI 38.7 Respiration 16 Pulse 65 Pulse Source Pulse Oximeter Pulse Oximetry (%) 95 Oxygen Delivery Method Room Air Intake Visit Reasons: Left Shoulder Inj./ pill count Hand Spray Operator Required: No Blasting Helper: Blasting Helper Present Accompanied by: Antonio Suárez Allergies NSAIDS (Non-Steroidal Anti-Inflamma Allergy (Severe, Verified 08/04/24 10:55) Anaphylaxis methadone Allergy (Intermediate, Verified 08/04/24 10:55) Vomiting Medication List - Last Reconciled 08/04/24 by Faviola Guzmán LPN acetaminophen-codeine 300-30 mg 1 tab PO BID PRN 30 days apixaban (Eliquis) 5 mg PO BID 90 days aspirin 81 mg PO DAILY bethanechol chloride mg PO blood sugar diagnostic (FreeStyle Test strips) Test blood sugar once a day cholecalciferol (vitamin D3) 50 mcg PO DAILY 90 days CPAP Machine/Device (CPAP) use daily NS [Diabetic shoes with 3 pair of custom orthotics wear daily] diclofenac sodium 1% 4 grams topical QID PRN 30 days diltiazem HCl ER 120 mg PO BID 90 days epinephrine (EpiPen) 0.3 mg (0.3 mL) IM Q10M PRN ketoconazole 2% 1 appl topical 2XW lidocaine-prilocaine 2.5-2.5 % 1 appl topical ONCE metformin ER 500 mg PO DAILY 90 days oxybutynin chloride ER 10 mg PO DAILY oxybutynin chloride ER 10 mg PO DAILY 90 days pravastatin 40 mg PO DAILY prednisone 10 mg PO DAILY ropinirole mg PO ropinirole 0.5 mg PO BEDTIME semaglutide 2 mg (0.75 mL) subcut QWEEK 30 days tadalafil 20 mg PO DAILY PRN tamsulosin 0.4 mg PO DAILY 90 days venlafaxine ER 150 mg PO DAILY 90 days HPI HPI Left Shoulder Inj./ pill count: Details: History of Present Illness The patient is a 69-year-old male presenting with right shoulder pain. He notes the pain has worsened over the last two weeks. The pain, described as a knocking sensation, arose following recent physical labor. His previous management of neuropathy includes adjustments to his spinal cord stimulator, though relief has been limited to his lower extremities. Magnesium cream provides brief relief to his feet for his neuropathy. His functional ability has improved since prior adjustments to his pain management regimen, allowing him extended mobility and capacity for routine activities. Pain Description - Onset and Timing: Worsened approximately two weeks ago - Quality and Character: Knocking sensation - Primary Location: Right shoulder - Exacerbating Factors: Increased physical labor and activity - Relieving Factors: Pain management regimen adjustments - Impact on Activities: Difficulty in prolonged standing, improved ability to perform household tasks with current pain management Physical Exam - Musculoskeletal- Tenderness of right shoulder - Neurological- Limited range of shoulder movement Results Pain Management - Affect: Persistent shoulder pain affects daily physical function - Analgesia: Use of magnesium cream provides temporary relief; pain management adjustments have been made - Adverse Effects: None reported - Activities of Daily Living: Improvement in functional abilities, including 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 A 21-gauge echo stim needle was inserted under ultrasound guidance in-plane to the subacromial bursa. Injected with 40 mg of Kenalog mixed with 4 mL of Ropivacaine 0.25%. Procedure was visualized via ultrasound and images saved to the patient record. Tolerated well without complications. [facility] Medical History Amputation of left great toe Cellulitis Dry gangrene Spinal cord stimulator status Polymyalgia rheumatica PAD (peripheral artery disease) Ascending aorta dilatation Sleep apnea Type 2 diabetes mellitus with peripheral neuropathy Diabetes mellitus due to underlying condition with diabetic neuropathy, without long-term current use of insulin Arterial insufficiency Iatrogenic Dennys's disease Morbid obesity Atherosclerotic cardiovascular disease Diabetic neuropathy associated with type 2 diabetes mellitus [facility] methotrexate user Seronegative rheumatoid arthritis Obesity (BMI 30-39.9) Vitamin D deficiency Diabetes type 2, controlled Osteopenia Adrenal 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 Painful total knee replacement, right Surgical History Status post amputation History of endarterectomy History of esophagogastroduodenoscopy (EGD) H/O colonoscopy Hx of coronary angiogram History of back surgery (~2018) History of knee replacement procedure of right knee History of knee replacement procedure of left knee Hx of cardiac cath Family History Father Angina pectoris Mother Stroke Social History Household Members: Spouse Housing: House Are you a primary care services manager to a significant other at home: No Do you presently have visiting nurse or other home services: No 75 years or older and lives alone: No Alcohol intake: former Year quit: 2023 Patient Tobacco Use Status: Former Tobacco user Years Smoked: 20 years ago e-Cigarette/Vaping Use: Never Used Second Hand Smoke Exposure: No Substance Use Type: Marijuana service: No Current occupational status: retired Cognitive needs: No Hearing needs: No Vision needs: No Physical Exam Vital Signs: Last Vital Signs Pulse 65 08/04/24 10:56 Resp 16 08/04/24 10:56 Pulse Ox 95 08/04/24 10:56 Oxygen Delivery Method Room Air 08/04/24 10:56 BMI result Body Mass Index 38.7 Assessment & Plan Assessment & Plan (1) Right shoulder pain: Code(s): M25.511 - Pain in right shoulder Category: Medical Plan Plan - Subacromial bursal injection administered for right shoulder pain, using anti-inflammatory and anesthetic agents for relief. - Monitor post-procedure for symptom recurrence or exacerbation. - Review and adjust current pain management medications as necessary. - Possible future adjustments in spinal cord stimulator for neuropathy. - Activity modifications discussed to manage pain and ensure safe mobility. Patient was informed and verbally consented to the use of an ambient scribe for clinic note documentation during this visit. Discussion Notes I discussed the planned subacromial bursal injection with the patient, detailing the benefits of anti-inflammatory and anesthetic agents to alleviate shoulder pain. The procedure was conducted under ultrasound guidance to ensure precision. I explained the potential for changes in his spinal cord stimulator settings to further address neuropathy, though immediate focus remains on alleviating shoulder pain. Follow-up in approximately 2-3 months was suggested to reassess pain and consider additional adjustments if needed. Patient expressed understanding and agreement with the management plan. Patient Instructions - Monitor for any changes in shoulder pain post-injection. - Limit strenuous activity involving the shoulder. - Observe post-procedural site for signs of infection or adverse reactions. - Call for follow-up if pain persists or worsens within the next couple of months. - Continue current analgesics and topical treatments unless advised otherwise. Coding Level of Care Code Est Pt Level 3 (66347) Diagnoses Right shoulder pain M25.511
[2024-08-04 10:56] VITALS: PULSE 65; RESP 16; O2SAT 95; BMI 38.7
--- OUTSIDE RECORDS SUMMARY | 2024-08-04 11:50 | XMS_ITS | Clinical Summary ---
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, left [...] half, previously drank 9 drinks per week [facility] Utilities Answer Date Recorded In the past 12 months has th e [place], gas, oil, or water [employer] threatened to shut off services in your [...] Info) Description 09/08/2024 8:00 AM EDT Appointment [facility] ACC Vascular Lab [address] [place] [address] 09/08/2024 8:45 AM EDT Appointment [facility] Vascular Lab [address] [place] [address] 09/08/2024 10:15 AM EDT Appointment [facility] Vascular Lab [address] [place] [address] 09/08/2024 11:30 AM EDT Follow-Up [facility] ACC Building Vascular Surgery [address] [place] [address] Computer Systems Security Administrator: Rosanna Lau, THERESE [address] [place] [address] Health Maintenance Due Date Last Done Comments [...] this topic Medical Devices Implanted Type Area Water Purifier Device Identifier Shelf Expiration Date Model / Serial / Lot System Closure And Repair Suture-Mediate d Perclose Prostyle - [id number] Implanted:Qty: 1 on 08/09/2021 by Denton Palacios MD at [facility] Implant Left: Leg [employer] 01/02/2023 64031-81 / / System Closure And Repair Suture-Mediate d Perclose Prostyle - S0 - [id number] Implanted:Qty: 1 on 09/13/2021 by Denton Palacios MD at [facility] Implant Left: Leg [employer] [id number] 07/03/2023 12546-07 / 0 / [id number] System Closure And Repair Suture-Mediate d Perclose Prostyle - S0 - [id number] Implanted:Qty: 1 on 11/13/2023 by Denton Palacios MD at [facility] Implant N/A: Groin [employer] [id number] 09/01/2025 89661-43 / 0 / [id number] Patch Pericardium Bovine .8nta4kq Photofix - [id number] Implanted:Qty: 1 on 11/21/2023 by Denton Palacios MD at [facility] Implant Left: Arterial [employer] 06/08/2025 PFP0.8X8 / / [id number] Patch Pericardium Bovine .5ija9zt Photofix - [id number] Implanted:Qty: 1 on 11/21/2023 by Denton Palacios MD at [facility] Implant Left: Arterial [employer] 05/11/2025 PFP0.8X8 / / [id number] Stent System Vascular 7.2g599ln BiomEchoing Green 3d - S0 - [id number] Implanted:Qty: 1 on 08/09/2021 by Denton Palacios MD at [facility] Stent Left: Leg [facility] MEDICAL [id number] 10/21/2022 980142 -1 1 / 0 / [id number] Stent System Vascular 6.2r508er Biomimics 3d - S0 - [id number] Implanted:Qty: 1 on 09/13/2021 by Denton Palacios MD at [facility] Stent Right: Leg [facility] MEDICAL [id number] 02/09/2023 512183 -1 0 / 0 / [id number] Stent Icast Covered [id number] - [id number] - [id number] Implanted:Qty: 1 on 11/13/2023 by Denton Palacios MD at [facility] Stent Left: Arterial [facility] [id number] 12/13/2025 08908 / [id number] / Insurance [facility] MCR REPLACE PPO Advance Directives * Full [...] 8:48 AM 09/06/2021 4:36 PM Care Teams Leather Whitener Relationship Specialty Start Date End Date Jas Casarez [address] [place] [address] PCP - General 07/19/21
== END 2024-08-04 11:20 | disposition home or self-care (01) ==
LOC: HO.PMC 10:45
PROVIDERS: PCP Nurse Practitioner Family; Visit Provider Internal Medicine
DX: M25.511 Pain in right shoulder (principal)
CPT/HCPCS: 20611; 99213

== ENCOUNTER 2024-08-04 10:50 | Outpatient (REF) | payer MEDICARE, SELFPAY ==
[2024-08-04 12:56] LABS: Appearance Urine Clear; Color Urine Yellow; Glucose Urine UA Negative (Negative); Leukocyte Esterase Urine Small (1+) (Negative); Nitrite Urine Negative (Negative); UMIC TRIGGER UACC YES; Urine Blood Negative (Negative); Urine Ketones Negative (Negative); Urine Protein Negative (Neg-Trace)
[2024-08-04 13:13] LABS: Bacteria Urine None Seen (None Seen); Calcium Oxalate Crystals Urine Present; Hyaline Casts Urine 0-2 /LPF (0-2); RBC Urine 0-2 /HPF (0-2); Squamous Epithelial Cell Urine 0-2 /HPF (0-2); UACC Culture Trigger YES; WBC Urine 0-5 /HPF (0-5)
== END 2024-08-04 10:51 | disposition home or self-care (01) ==
LOC: HO.10HDLNP 10:50
PROVIDERS: Visit Provider Nurse Practitioner Family
DX: M25.511 Pain in right shoulder (principal); Z51.81 Encounter for therapeutic drug level monitoring; Z79.891 Long term (current) use of opiate analgesic
CPT/HCPCS: 20611; 81001; 87086; 99212; J2795; J3301

== ENCOUNTER 2024-08-11 11:13 | Outpatient (REF) | payer MEDICARE, SELFPAY ==
--- OUTSIDE RECORDS SUMMARY | 2024-08-11 12:50 | XMS_ITS | Clinical Summary ---
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, left [...] previously drank 9 drinks per week [facility] Utilities Answer Date Recorded In the past 12 months has th e [employer], gas, oil, or water [employer] threatened to shut off services in your [...] Info) Description 09/08/2024 8:00 AM EDT Appointment [facility] [address] [place] [address] 09/08/2024 8:45 AM EDT Appointment [facility] [address] [place] [address] 09/08/2024 10:15 AM EDT Appointment [facility] [address] [place] [address] 09/08/2024 11:30 AM EDT Follow-Up [facility] Vascular Surgery [address] [place] [address] Fish Egg Packer: Rosanna Lau, THERESE [address] [place] [address] Health Maintenance Due Date Last Done Comments [...] this topic Medical Devices Implanted Type Area Lan Specialist Device Identifier Shelf Expiration Date Model / Serial / Lot System Closure And Repair Suture-Mediate d Perclose Prostyle - [id number] Implanted:Qty: 1 on 08/09/2021 by Denton Palacios MD at [facility] Implant Left: Leg [employer] 01/02/2023 [id number] / / System Closure And Repair Suture-Mediate d Perclose Prostyle - S0 - [id number] Implanted:Qty: 1 on 09/13/2021 by Denton Palacios MD at [facility] Implant Left: Leg [employer] [id number] 07/03/2023 [id number] / 0 / [id number] System Closure And Repair Suture-Mediate d Perclose Prostyle - S0 - [id number] Implanted:Qty: 1 on 11/13/[address] Denton Palacios MD at [facility] Implant N/A: Groin [employer] [id number] 09/01/2025 [id number] / 0 / [id number] Patch Pericardium Bovine .5ard6qf Phot[employer]ix - [id number] Implanted:Qty: 1 on 11/21/[address] Denton Palacios MD at [facility] Implant Left: Arterial [employer] 06/08/2025 PFP0.8X8 / / [id number] Patch Pericardium Bovine .2ahh6pd Photofix - [id number] Implanted:Qty: 1 on 11/21/[address] Denton Palacios MD at [facility] Implant Left: Arterial [employer] 05/11/2025 PFP0.8X8 / / [id number] Stent System Vascular 7.6p405io BiomKreix 3d - S0 - [id number] Implanted:Qty: 1 on 08/09/2021 by Denton Palacios MD at [facility] Stent Left: Leg [facility] [id number] 10/21/2022 [id number] -[id number] 1 / 0 / [id number] Stent System Vascular 6.0g656xg Biomimics 3d - S0 - [id number] Implanted:Qty: 1 on 09/13/2021 by Denton Palacios MD at [facility] Stent Right: Leg [facility] [id number] 02/09/2023 [id number] -1 0 / 0 / [id number] Stent [employer] Covered [id number] - [id number] - [id number] Implanted:Qty: 1 on 11/13/[address] by Denton Palacios MD at [facility] Stent Left: Arterial [employer] [facility] [id number] 12/13/2025 [id number] / [id number] / Insurance [facility] MCR REPLACE PPO Advance Directives * Full [...] 8:48 AM 09/06/2021 4:36 PM Care Teams Gyroscopic Instrument Mechanic Relationship Specialty Start Date End Date Jas Casarez [address] [place] [address] PCP - General 07/19/21
[2024-08-11 13:11] LABS: MANUAL DIFF FLAG NO
[2024-08-11 13:32] LABS: Basophils Percent Auto 0.4 % (0-2); Eosinophils Percent Auto 0.2 % (0-4); Hematocrit 45.9 % (42.0-52.0); Hemoglobin 15.6 g/dl (14.0-18.0); Imm Gran Abs Auto 0.05 X10*3/uL (0.00-0.03); Imm Gran Pct Auto 0.5 % (0.0-0.4); Lymphocytes Absolute Auto 0.8 X10*3/uL (1.2-4.9); Lymphocytes Percent Auto 8.3 % (20-40); Mean Corpuscular Hemoglobin 31.3 pg (27.0-33.0); Mean Corpuscular Volume 92.2 fL (80.0-98.0); Mean Platelet Volume 10.8 fL (9.4-12.4); Monocytes Absolute Auto 0.6 X10*3/uL (0.1-1.2); Neutrophils Percent Auto 84.6 % (45-73); Platelet Count 169 X10*3/uL (160-400); Red Blood Count 4.98 X10*6/uL (4.60-5.80); Red Cell Distribution Width 13.6 % (11.0-16.0); White Blood Count 9.5 X10*3/uL (4.8-10.8)
[2024-08-11 13:58] LABS: Alanine Aminotransferase 22 U/L (0-40); Albumin Level 4.4 g/dL (3.5-5.0); Alkaline Phosphatase 60 U/L (39-117); Anion Gap 12 (12-20); Aspartate Amino Transferase 17 U/L (5-37); Bilirubin Total 0.9 mg/dL (0.0-1.0); Blood Urea Nitrogen 15 mg/dL (9-16); Calcium 9.3 mg/dL (8.4-10.2); Carbon Dioxide 25 mmol/L (22-29); Chloride 106 mmol/L (96-108); Estimated Glomerular Filt Rate > 60; Glucose Random 135 mg/dL (60-115); Potassium 4.3 mmol/L (3.3-5.1); Sodium 139 mmol/L (135-145); Total Protein 6.8 g/dL (6.5-8.0)
[2024-08-11 14:07] LABS: Erythrocyte Sedimentation Rate 2 MM/HR (0-15)
== END 2024-08-11 11:14 | disposition home or self-care (01) ==
LOC: HO.10HDL 11:13
PROVIDERS: Visit Provider Student in an Organized Health Care Education/Training Program
DX: Z13.89 Encounter for screening for other disorder (principal)
CPT/HCPCS: 36415; 80053; 85025; 85652; 86140

== ENCOUNTER → 2024-08-11 11:24 | Outpatient (REF) | payer MEDICARE, SELFPAY | LOC: HO.CARD 11:24 | PROVIDERS: PCP Nurse Practitioner Family; Visit Provider Internal Medicine | DX: I48.0 Paroxysmal atrial fibrillation (principal); E11.42 Type 2 diabetes mellitus with diabetic polyneuropathy | CPT/HCPCS: 36415; 80053; 85025; 85652; 86140; 93242; 99212 ==

== ENCOUNTER → 2024-08-11 11:27 | Outpatient (BNV) | payer MEDICARE, SELFPAY | PROVIDERS: PCP Nurse Practitioner Family; Visit Provider Internal Medicine | DX: I48.91 Unspecified atrial fibrillation (principal) | CPT/HCPCS: 93244 ==

== ENCOUNTER 2024-08-11 14:12 | Outpatient (AMB) | payer MEDICARE, SELFPAY ==
--- NOTE | 2024-08-11 14:15 | A.OFFPC_ITS ---
Vital Signs 08/11/24 14:18 Height 5 ft 9 in Weight 259 lb BMI 38.2 BP 118/66 Blood Pressure Location Rt brachial Position Sitting Pulse 88 Pulse Source Pulse Oximeter Pulse Oximetry (%) 98 Oxygen Delivery Method Room Air Intake Visit Reasons: 4m follow up Physical Integration Practitioner Required: No Accompanied by: Spouse Allergies NSAIDS (Non-Steroidal Anti-Inflamma Allergy (Severe, Verified 08/11/24 14:22) Anaphylaxis methadone Allergy (Intermediate, Verified 08/11/24 14:22) Vomiting Tobacco use date assessed: 06/25/24 Fall risk assessment: No Falls in past year Last assessed Fall Risk: 08/11/24 Dental Screening Dental Screen Date: 06/25/24 HPI 4m follow up HPI Details Chief Complaint Follow-up for diabetes management History of Present Illness The patient is a 69-year-old male presenting with follow-up for Type 2 Diabetes Mellitus management. Recently, his Hemoglobin A1c was recorded at 5.7%, reflecting improved blood sugar control. He is currently on a GLP-1 agonist treatment regimen at a 2 mg dosage, achieving satisfactory results, including notable weight loss. The patient also experiences diabetic neuropathy in his feet and is receiving care from a sponge press operator. Although he declined today's foot examination, he assures routine self-inspection with the aid of his . He gets eye exams regularly. Social History - Daily self-monitoring of feet with ass istance from - Management of diabetes with GLP-1 agon ist regimen - Weight management is noted as successf ul Health Maintenance - Regular monitoring of Hemoglobin A1c - Routine foot inspections are conducted at home with family participation - Under podiatric care for diabetic neur opathy management - Plans to self-arrange regular eye exam inations Review of Systems - Endocrine: Reports improved diabetes c ontrol - Neurological: Reports neuropathy in bi lateral lower extremities - Musculoskeletal: Denies current examin ation of the lower extremities - Ocular: Declined eye examination; plan s own examination schedule Physical Exam General: Cooperative, healthy appearing, comfortable, no acute distress and well developed, obese Orientation: Patient oriented x3 Limitations: No limitations Head: Normal to inspection Ears: Hearing grossly normal bilaterally Nose: Normal external nose present Face and sinus: Normal facial exam Eyes: Appearance normal, both eyes and all related structures Neck: Normal visual inspection and Yes full ROM Respiratory: Normal respiratory effort and able to speak in complete sentences. Clear to auscultation bilaterally Cardiovascular: Regular rate and rhythm. Normal S1 and S2 GI: Normal to inspection. Soft to palpation and nontender Skin: No rashes or lesions noted Neuro: Patient oriented x3 Extremities: Neuropathy in bilateral extremities, declined foot exam today. Results - Labs: Hemoglobin A1c at 5.7% (end of l ast month) Plan 5.7%, achieved through a 2 mg dosage of GLP-1 agonist. This medication regimen has successfully aided weight management and improved glucose levels. We discussed the management of his diabetic neuropathy in the lower extremities, reinforcing the importance of regular podiatric consultations and daily self- monitoring. The patient remains engaged in his healthcare decisions, declining physical foot examinations today, opting for autonomously scheduled ocular examinations, and involving family for supportive daily care practices.: Discussion Notes I discussed with the patient the success in controlling his Type 2 Diabetes Mellitus, as demonstrated by his improved Hemoglobin A1c. We reviewed the benefits of continuing the GLP-1 agonist, emphasizing its contribution to both diabetes management and weight control. Regarding his diabetic neuropathy, we together emphasized the importance of routine inspections and podiatric consultations. I acknowledged his choice to self-schedule eye exams and respected his decision to decline certain assessments today, encouraging active involvement in health decisions. Follow-up and routine checks remain crucial, and his proactive approaches are commendable for sustained management. Patient Instructions - Continue taking GLP-1 agonist as presc ribed (2 mg) - Keep up with daily foot checks with th e help of family - Arrange your own eye exams and follow through regularly - Monitor blood sugar levels and maintai n a healthy diet - Stay engaged in your diabetes care and report any changes or concerns promptly [facility] Medical History Amputation of left great toe Cellulitis Dry gangrene Spinal cord stimulator status Polymyalgia rheumatica PAD (peripheral artery disease) Ascending aorta dilatation Sleep apnea Type 2 diabetes mellitus with peripheral neuropathy Diabetes mellitus due to underlying condition with diabetic neuropathy, without long-term current use of insulin Arterial insufficiency Iatrogenic Dennys's disease Morbid obesity Atherosclerotic cardiovascular disease Diabetic neuropathy associated with type 2 diabetes mellitus 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 Seronegative rheumatoid arthritis Obesity (BMI 30-39.9) Vitamin D deficiency Diabetes type 2, controlled Osteopenia Adrenal 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 Painful total knee replacement, right Surgical History Status post amputation History of endarterectomy History of esophagogastroduodenoscopy (EGD) H/O colonoscopy Hx of coronary angiogram History of back surgery (~2018) History of knee replacement procedure of right knee History of knee replacement procedure of left knee Hx of cardiac cath Family History Father Angina pectoris Mother Stroke Social History Household Members: Spouse Housing: House Are you a primary managed care director to a significant other at home: No Do you presently have visiting nurse or other home services: No 75 years or older and lives alone: No Alcohol intake: former Year quit: 2023 Patient Tobacco Use Status: Former Tobacco user Years Smoked: 20 years ago e-Cigarette/Vaping Use: Never Used Second Hand Smoke Exposure: No Substance Use Type: Marijuana service: No Current occupational status: retired Cognitive needs: No Hearing needs: No Vision needs: No Questionnaire Thrive Questionnaire Date Thrive assessed: 04/07/24 Within the past 12 months, did the food you bought not last and you didn't have the money to get more?: I choose not to answer this question THRIVE Score: 0 AGUSTINA-7 AMB Questionnaire AGUSTINA-7 Date AGUSTINA - 7 assessed: 04/07/24 Source: Developed by Drs. Sourav Perez, Cyndi Kim, Tino Alvares and colleagues, with an educational melissa from [employer]. Physical exam (Primary Care) Vital Signs: Last Vital Signs Pulse 88 08/11/24 14:18 BP 118/66 08/11/24 14:18 Pulse Ox 98 08/11/24 14:18 Oxygen Delivery Method Room Air 08/11/24 14:18 BMI result Body Mass Index 38.2 Tobacco/Smoking Status: Tobacco use Status Tobacco use date assessed 06/25/24 08/11/24 14:16 Patient Tobacco Use Status Former Tobacco user 08/11/24 14:16 e-Cigarette/Vaping Use Never Used 08/11/24 14:16 Thrive Assessment: Date of Thrive Assessment Date Thrive assessed 04/07/24 08/11/24 14:16 Coding Level of Care Code Est Pt Level 3 (43848) Diagnoses Type 2 diabetes mellitus with peripheral neuropathy E11.42 Assessment & Plan Assessment & Plan (1) Type 2 diabetes mellitus with peripheral neuropathy: Code(s): E11.42 - Type 2 diabetes mellitus with diabetic polyneuropathy Category: Medical Plan .
[2024-08-11 14:18] VITALS: BP 118/66; PULSE 88; O2SAT 98; BMI 38.2
== END 2024-08-11 16:03 | disposition home or self-care (01) ==
LOC: HO.HMCC 14:12
PROVIDERS: PCP Nurse Practitioner Family; Visit Provider Nurse Practitioner Family
DX: E11.42 Type 2 diabetes mellitus with diabetic polyneuropathy (principal)

== ENCOUNTER 2024-08-14 14:39 | Outpatient (AMB) | payer MEDICARE, SELFPAY ==
[2024-08-14 14:42] VITALS: BP 120/72; PULSE 62; O2SAT 97; BMI 38.2
--- NOTE | 2024-08-14 14:42 | MHC.OFFVIS ---
Vital Signs 08/14/24 14:42 Height 5 ft 9 in Weight 258 lb 13.163 oz BMI 38.2 BP 120/72 Blood Pressure Location Lt brachial Position Sitting Pulse 62 Pulse Source Pulse Oximeter Pulse Oximetry (%) 97 Oxygen Delivery Method Room Air Intake Visit Reasons: PMR Intake Note: Patient presents for follow up on PMR. Allergies NSAIDS (Non-Steroidal Anti-Inflamma Allergy (Severe, Verified 08/14/24 14:45) Anaphylaxis methadone Allergy (Intermediate, Verified 08/14/24 14:45) Vomiting Medication List - Last Reconciled 08/17/24 by Megan Castro MD acetaminophen-codeine 300-30 mg 1 tab PO BID PRN 30 days apixaban (Eliquis) 5 mg PO BID 90 days aspirin 81 mg PO DAILY blood sugar diagnostic (FreeStyle Test strips) Test blood sugar once a day cholecalciferol (vitamin D3) 50 mcg PO DAILY 90 days CPAP Machine/Device (CPAP) use daily NS [Diabetic shoes with 3 pair of custom orthotics wear daily] diclofenac sodium 1% 4 grams topical QID PRN 30 days diltiazem HCl ER 120 mg PO BID 90 days epinephrine (EpiPen) 0.3 mg (0.3 mL) IM Q10M PRN ketoconazole 2% 1 appl topical 2XW metformin ER 500 mg PO DAILY 90 days oxybutynin chloride ER 10 mg PO DAILY 90 days pravastatin 40 mg PO DAILY prednisone 10 mg PO DAILY ropinirole 0.5 mg PO BEDTIME semaglutide 2 mg (0.75 mL) subcut QWEEK 30 days tadalafil 20 mg PO DAILY PRN tamsulosin 0.4 mg PO DAILY 90 days venlafaxine ER 150 mg PO DAILY 90 days HPI Comments Details: Patient is a 69-year-old male Paroxysmal AFib on Eliquis, hypertension, diabetes complicated by peripheral artery disease status post amputation of left great toe and neuropathy, iatrogenic [place] disease and adrenal insufficiency, BPH, sleep apnea, recurrent trochanteric bursitis, osteopenia off and PMR vs seronegative rheumatoid arthritis here today for follow-up Interval History: Patient last seen 12/27/[address] Sandhu. At that time he was following up for his PMR on prednisone 10 mg daily. Because past attempts to wean prednisone on immunosuppression was met with return of symptoms Decision at that time was made to continue the current dose of prednisone. Today patient is with his and overall is doing well on the current dose of prednisone. States that there are some days where he requires more prednisone in which he will increase for a few days and then go back to his 10 mg a day dose. Rheumatologic History: Originally his joint symptoms began 2018. He was thought to have PMR. The recalls he was taking at one point 60 mg daily prednisone. That was gradually tapered down but he had trouble going below 15 mg. Eventually however the prednisone was tapered off after he had been put on methotrexate and Humira. Subsequently diagnosis changed to seronegative RA due to peripheral joint symptoms 2020 Humira added 10/[address] of Humira[address] MTX & Kevzara He self-discontinued Kevzara and methotrexate when he had left big toe gangrene 10/2023 Prednisone continued At some point developed adrenal insufficiency and was seeing endocrinology on hydrocortisone. There were attempts to try to slowly wean him off that medication but this was unsuccessful. The pain in the hands is mostly across the PIP joints where he has stiffness. He has some foot pain in the instep regions more with walking but also some tingling and numbness at night. Current Rheumatology Medication(s): Prednisone 10mg daily [facility] Medical History Amputation of left great toe Cellulitis Dry gangrene Spinal cord stimulator status Polymyalgia rheumatica PAD (peripheral artery disease) Ascending aorta dilatation Sleep apnea Type 2 diabetes mellitus with peripheral neuropathy Diabetes mellitus due to underlying condition with diabetic neuropathy, without long-term current use of insulin Arterial insufficiency Iatrogenic Dennys's disease Morbid obesity Atherosclerotic cardiovascular disease Diabetic neuropathy associated with type 2 diabetes mellitus 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 Seronegative rheumatoid arthritis Obesity (BMI 30-39.9) Vitamin D deficiency Diabetes type 2, controlled Osteopenia Adrenal 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 Painful total knee replacement, right Surgical History Status post amputation History of endarterectomy History of esophagogastroduodenoscopy (EGD) H/O colonoscopy Hx of coronary angiogram History of back surgery (~2018) History of knee replacement procedure of right knee History of knee replacement procedure of left knee Hx of cardiac cath Family History Father Angina pectoris Mother Stroke Social History Household Members: Spouse Housing: House Are you a primary career technical education teacher to a significant other at home: No Do you presently have visiting nurse or other home services: No 75 years or older and lives alone: No Alcohol intake: former Year quit: 2023 Patient Tobacco Use Status: Former Tobacco user Years Smoked: 20 years ago e-Cigarette/Vaping Use: Never Used Second Hand Smoke Exposure: No Substance Use Type: Marijuana service: No Current occupational status: retired Cognitive needs: No Hearing needs: No Vision needs: No Review of Systems Const Details: Review of Systems Constitutional: Denies fever, chills, weight loss ENT: Denies vision changes, eye pain or eye redness, dental caries, dry mouth GI: Denies nausea, vomiting, diarrhea, abdominal pain, change in BM Pulm: Denies SOB, LEUNG, hemoptysis, wheezing Cards: Denies chest pain, palpitations Skin: Denies Raynaud's, rash, nail changes, photosensitivity, GAS LINE INSTALLER: Denies headaches, weakness, paresthesias, recurrent falls MSK: as per HPI All other systems reviewed and are unremarkable except noted above Physical Exam Vital Signs: Last Vital Signs Pulse 62 08/14/24 14:42 BP 120/72 08/14/24 14:42 Pulse Ox 97 08/14/24 14:42 Oxygen Delivery Method Room Air 08/14/24 14:42 BMI result Body Mass Index 38.2 Vital signs reviewed Physical Examination CONSTITUITIONAL Patient alert and cooperative. Well appearing and in no apparent painful distress HEENT Conjunctiva and sclera clear. No lymphadenopathy. CHEST/RESPIRATORY SYSTEM Normal respiratory effort and able to speak in complete sentences. Clear to auscultation bilaterally. No crackles, rales, rhonchi, wheezes heard. CARDIAC SYSTEM Regular rate and rhythm. S1 and S2 heard no murmurs. Radial pulses intact bilaterally MSK Hands Right Hand: Able to make a fist. No swelling or tenderness to palpation of these joints. Herbeden's nodes. Left Hand: Able to make a fist. No swelling or tenderness to palpation of these joints. Herbeden's nodes Wrists Right Wrist: Full ROM. 70 degrees of wrist flexion, 80 degrees of wrist extension. No swelling or TTP Left Wrist: Full ROM. 70 degrees of wrist flexion, 80 degrees of wrist extension. No swelling or TTP Elbows Right Elbow: Full ROM. No swelling or TTP. No TTP of the medial and lateral epicondyles Left Elbow: Full ROM. No swelling or TTP. No TTP of the medial and lateral epicondyles Shoulders Right shoulder: Full ROM. No swelling noted. No TTP of the AC joint, subacromial bursa or posterior shoulder Left shoulder: Full ROM. No swelling noted. No TTP of the AC joint, subacromial bursa or posterior shoulder Hip bursa: Mild tenderness to palpation bilaterally Knees Right knee: Full ROM. No swelling noted. No TTP of the knee joint lie or pes anserine bursa Left knee: Full No swelling noted. No TTP of the knee joint lie or pes anserine bursaROM. Ankles Right ankle: Good ankle dorsiflexion and plantar flexion. No swelling. No TTP of the ankle joint Left ankle: Good ankle dorsiflexion and plantar flexion. No swelling. No TTP of the ankle joint Feet Right foot: Negative squeeze test Left foot: Negative squeeze test Tender points? No tenderness to palpation of the bilateral trapezius, supraspinatus, anterior costochondral junctions, bilateral suboccipital muscle insertions SKIN No rashes Results Reviewed Results Reviewed: Laboratory Tests 08/11/24 11:20 WBC 9.5 RBC 4.98 Hgb 15.6 Hct 45.9 Plt Count 169 ESR 2 Sodium 139 Potassium 4.3 Chloride 106 Carbon Dioxide 25 BUN 15 Creatinine 0.80 Calcium 9.3 Total Bilirubin 0.9 AST 17 ALT 22 Alkaline Phosphatase 60 C-Reactive Protein 0.10 DEXA 12/2023 FINDINGS: LEFT FEMUR, NECK: Current: BMD 1.041 g/cm2, Z-score 0.5, T-score -0.2, normal. Prior: BMD 0.973 g/cm2. Baseline: BMD 1.182 g/cm2. LEFT FEMUR, TOTAL: Current: BMD 1.000 g/cm2, Z-score -0.4, T-score -0.7, normal, 7.9% increase from previous, 18.2% decrease from baseline (<5% change is not significant). Prior: BMD 0.927 g/cm2. Baseline: BMD 1.222 g/cm2. AP SPINE L1-L4: Current: BMD 1.231 g/cm2, Z-score -0.1, T-score 0.1, normal, 13.8% increase from previous, 24.6% increase from baseline (<5% change is not significant). Prior: BMD 1.082 g/cm2. Baseline: BMD 0.988 g/cm2. Assessment & Plan Assessment & Plan (1) Seronegative rheumatoid arthritis: Comment: PMR vs seroneg RA Initially diagnosed as RA?onset 2018. prednisone and eventually methotrexate added. 2020 Humira added with ? improvmenet 10/[address] of Humira[address] MTX & Kevzara self DC 10/2023 when he had arterial thrombosis and left big toe gangrene Prednisone continued Code(s): M06.00 - Rheumatoid arthritis without rheumatoid factor, unspecified site Category: Medical Plan: #PMR vs seronegative RA Patient is a 69-year-old male with the inflammatory arthritis here today for follow-up. I had a very long discussion with the patient and his , I am very concerned about his prolonged steroid use especially at 10 mg daily sometimes even higher. He is definitely at risk of all the complications associated with prolonged steroid use including but not limited to his current iatrogenic [place]'s syndrome. Given that the true circumstances surrounding his initial diagnosis are on flare I am not sure whether he truly had PMR versus an inflammatory arthritis. His and review of the chart showed that he was on doses as high as 60 mg in the past and did PMR does not require such high doses. PMR usually responds to minimal steroid such as 15 and 20 mg and doses higher than that are usually not associated with the actual PMR. He may have had the beginnings of an inflammatory arthritis that affected his shoulder is send hips and potentially mistaken for PMR. The knees had because previous attempts to wean patient off steroids were met with return of musculoskeletal symptoms he is obviously wary of any further attempts at taper. in addition to that he also has concomitant adrenal insufficiency secondary to his prolonged steroid use which will make reduction of steroids even more difficult. Because of his complicated history that predates my evaluation I am okay with continuing his current dose of prednisone. I also discussed with him potentially trying other agents more geared at targeting seronegative rheumatoid arthritis versus just PMR as the fact that he has not responded to IL 6 inhibition makes me question even further if he truly has a diagnosis of PMR. While you can have resistant PMR am not sure if this was his initial diagnosis in the 1st place. After discussing with patient and his they have decided to think about the option of trying to come off of the steroids and let me know at the next visit. Plan - Continue prednisone 10mg daily but split it into 5mg in the AM and 5mg in the PM - RTC 4 months - Labs before visit: CBC, CMP, ESR, CRP (2) Osteopenia: Code(s): M85.80 - Other specified disorders of bone density and structure, unspecified site Category: Medical Qualifiers: Osteopenia location: multiple sites Qualified Code(s): M85.89 - Other specified disorders of bone density and structure, multiple sites Plan: #Screening for osteporosis Last DEXA 12/2023 normal (3) penitentiary (current) use of systemic steroids: Code(s): Z79.52 - penitentiary (current) use of systemic steroids Plan: #Long-term Use of Steroids Discussed with patient the risks and benefits of steroid for managing the rheumatic condition Benefits include: - Reduced pain, improved mobility, increased participation in activities, and decreased progression of disease Risks include: - GI upset, potential ultrasound worsening or formation (especially in patients > 65 years old), elevated blood pressure/worsening hypertension, elevated blood sugar/worsening diabetes control, worsening of bone density, elevated lipids/worsening triglycerides, cataract formation, weight gain Recommended using proton pump inhibitors (PPIs) for the duration of steroid use to reduce the risk of gastric ulcers and vitamin-D daily to reduce the risk of osteoporosis Labs checked: A1c, T spot, hepatitis-B and C serologies Pneumocystis jiroveci prophylaxis: Patient with risk factors including steroids greater than 50 mg for more than 30 days, age greater than 60 years, and lung involvement from underlying rheumatic disease requires prophylaxis and will be given so Plan I spent 45 minutes reviewing the record and labs, taking a history, examining the patient, discussing the patient's diagnosis, answering questions and explaining concepts and documenting in the medical record Orders: Orders Comprehensive Met. Panel 3 Months M06.00 - Rheumatoid arthritis without rheumatoid factor, unspecified site C Reactive Protein 3 Months M06.00 - Rheumatoid arthritis without rheumatoid factor, unspecified site Complete Blood Count Auto Diff 3 Months M06.00 - Rheumatoid arthritis without rheumatoid factor, unspecified site T Spot TB 3 Months M06.00 - Rheumatoid arthritis without rheumatoid factor, unspecified site Erythrocyte Sedimentation Rate 3 Months M06.00 - Rheumatoid arthritis without rheumatoid factor, unspecified site Hepatitis A,B,C Profile 3 Months M06.00 - Rheumatoid arthritis without rheumatoid factor, unspecified site Medications: Changed From prednisone 10 mg PO DAILY 56 tabs 0RF M35.3 - Polymyalgia rheumatica To prednisone Take one tablet twice a day. Can increase by 0.5 tablet to 1 tablet daily when needed 10 mg (2 x 5 mg) PO DIRECTED 90 days 200 tabs 1RF M35.3 - Polymyalgia rheumatica Coding Level of Care Code Est Pt Level 5 (72462) Complex EM visit Add On G2211 Diagnoses Seronegative rheumatoid arthritis M06.00 Osteopenia of multiple sites M85.89 Osteopenia location: multiple sites penitentiary (current) use of systemic steroids Z79.52
--- OUTSIDE RECORDS SUMMARY | 2024-08-14 17:13 | XMS_ITS | Clinical Summary ---
Author Organization [facility] Address [address] [place] [address] Care Team Providers Care Ironworker Wire Fence Erector Name Role Phone NaomymarianaJas villegas Moy Primary [...] Date Diagnosed Date Resolved Date Atherosclerosis of [place] of extremities with gangrene, left [...] half, previously drank 9 drinks per week [facility] Utilities Answer Date Recorded In the past 12 months has th e [employer], gas, oil, or water [employer] threatened to shut off services in your [...] Info) Description 09/08/2024 8:00 AM EDT Appointment [facility] [address] [place] [address] 09/08/2024 8:45 AM EDT Appointment [facility] [address] [place] [address] 09/08/2024 10:15 AM EDT Appointment [facility] [address] [place] [address] 09/08/2024 11:30 AM EDT Follow-Up [facility] V[facility] Surgery [address] [place] [address] Drag Seiner: Rosanna Lau, THERESE [address] [place] [address] Health Maintenance Due Date Last Done Comments [...] this topic Medical Devices Implanted Type Area Home Sales Service Professional Device Identifier Shelf Expiration Date Model / Serial / Lot System Closure And Repair Suture-Mediate d Perclose Prostyle - [id number] Implanted:Qty: 1 on 08/09/2021 by Denton Palacios MD at [facility] Implant Left: Leg [employer] 01/02/2023 [id number] / / System Closure And Repair Suture-Mediate d Perclose Prostyle - S0 - [id number] Implanted:Qty: 1 on 09/13/2021 by Denton Palacios MD at [facility] Implant Left: Leg [employer] [id number] 07/03/2023 [id number] / 0 / [id number] System Closure And Repair Suture-Mediate d Perclose Prostyle - S0 - [id number] Implanted:Qty: 1 on 11/13/2023 by Denton Palacios MD at [facility] Implant N/A: Groin [employer] [id number] 09/01/2025 [id number] / 0 / [id number] Patch Pericardium Bovine .[id number] Photofix - [id number] Implanted:Qty: 1 on 11/21/2023 by Denton Palacios MD at [facility] Implant Left: Arterial [employer] 06/08/2025 PFP0.8X8 / / [id number] Patch Pericardium Bovine .4qpz2ob Photofix - [id number] Implanted:Qty: 1 on 11/21/2023 by Denton Palacios MD at [facility] Implant Left: Arterial [employer] 05/11/2025 PFP0.8X8 / / [id number] Stent System Vascular 7.8u317rs BiomY[employer] 3d - S0 - [id number] Implanted:Qty: 1 on 08/09/2021 by Denton Palacios MD at [facility] Stent Left: Leg [facility] [id number] 10/21/2022 [id number] -[id number] 1 / 0 / [id number] Stent System Vascular [id number] Biomimics 3d - S0 - [id number] Implanted:Qty: 1 on 09/13/2021 by Denton Palacios MD at [facility] Stent Right: Leg [facility] MEDICAL [id number] 02/09/2023 [id number] -1 0 / 0 / [id number] Stent Icast Covered [id number] - [id number] - [id number] Implanted:Qty: 1 on 11/13/2023 by Denton Palacios MD at [facility] Stent Left: Arterial [facility] [id number] 12/13/2025 [id number] / [id number] / Insurance [facility] MCR REPLACE PPO Advance Directives * [...] 8:48 AM 09/06/2021 4:36 PM Care Teams Ironworker Wire Fence Erector Relationship Specialty Start Date End Date Jas Casarez [address] [place] [address] PCP - General 07/19/21
== END 2024-08-14 15:58 | disposition home or self-care (01) ==
LOC: HO.RHE 14:40
PROVIDERS: PCP Nurse Practitioner Family; Visit Provider Student in an Organized Health Care Education/Training Program
DX: M06.00 Rheumatoid arthritis without rheumatoid factor, unspecified site (principal); M85.89 Other specified disorders of bone density and structure, multiple sites; Z79.52 Long term (current) use of systemic steroids
CPT/HCPCS: 99215; G2211

== ENCOUNTER → 2024-08-14 14:39 | Outpatient (BNVA) | payer MEDICARE, SELFPAY | PROVIDERS: PCP Nurse Practitioner Family; Visit Provider Student in an Organized Health Care Education/Training Program | DX: I10 Essential (primary) hypertension (principal); M06.00 Rheumatoid arthritis without rheumatoid factor, unspecified site; M85.89 Other specified disorders of bone density and structure, multiple sites; Z79.52 Long term (current) use of systemic steroids; R20.0 Anesthesia of skin | CPT/HCPCS: 99212 ==

== ENCOUNTER 2024-09-04 12:48 | Outpatient (AMB) | payer MEDICARE, SELFPAY ==
--- OUTSIDE RECORDS SUMMARY | 2024-09-04 12:54 | XMS_ITS | Patient Health Record ---
Author Organization [facility] Address [address] [place] [address] Care Team Providers Care Building Stonecutter Name Role Phone GUILLERMO RICHTER Primary Care Provider Cachorro Conway Jr Unavailable [phone] Reason For Referral No Information Medications Medication SIG (Take, Route, Fr equency, Duration) Notes Start Date End Date Status Percocet 5/325mg Act mely Flomax 0.4mg Active Plaquenil 200mg Acti ve Effexor XR 75mg Acti ve predniSONE 5mg Activ e MoviPrep 100 GM as directed before c olonoscopy Orally for 1 dose 04/10/2013 03/05/2024 Active Problems Problem Type SNOMED Code ICD Code Onset Dates Problem Status W/U Status Risk Notes Problem Colon cancer screening (V76.51) Active confirmed Plan Of Treatment Future Test Test Name Order Date COLONOSCOPY 04/10/2013 Insurance Providers Payer Name Payer Address Payer Phone Subscriber Number Group Number Insured Name Patient Relationship to Insured Coverage Start Date Coverage End Date [facility] ([facility]EDS [facility]FER[facility] L) [address] [place] [address] [phone] [id number] STEVEN OLIVEIRA Self - patient is the insured Medical (General) History Medical History History ICD Code elevated Cholesterol colonoscopy 03/13/2003 Denies HI,DM,CVA,Lung disease,renal dise ase polymyalgia rheumatica arthritis Surgical History Surgery Date(Month/Year) left knee replacement 2008 right knee replacement 2007 carpal tunnel release
--- OUTSIDE RECORDS SUMMARY | 2024-09-04 12:54 | XMS_ITS | Patient Health Record ---
[facility] Address [address] [facility] [place] [address] Care Team Providers Care Welding Foreman Name Role Phone Jas Stone Primary Care Provider Unav Bryanna Chavarria Unavailable [phone] Barrington Cramer Unavailable [phone] Tono Skinner Unavailable [phone] Allergies Allergen (clinical drug ingredient) Drug/Non Drug [...] (HH) 5.4 HEMOGLOBIN A1C (GLYCOHEMOGLO BIN) Reviewed date:04/22/2024 10:35:22 AM Interpretation: Performing Lab: Notes/Report: HEMOGLOBIN A1C % (HH) 5.4 HEMOGLOBIN A1C (GLYCOHEMOGLO BIN) Reviewed date:03/27/2024 02:26:20 PM Interpretation: Performing Lab: Notes/Report: HEMOGLOBIN A1C % (HH) 5.4 TOTAL HEMOGLOBIN (HGBA1C) 5.4 Reason For Referral No Information Medications Medication SIG (Take, Route, Frequency, Duration) Notes Start Date End Date Status Custom Orthotics as directed A ctive Magnesium 400 MG as directed Orally Not-Taking Vitamin D Active Extra Depth Diabetic Shoes with 3 Pair Custom heat-molded multi-density innersoles for 1 year Dx: 12/13/2021 Active Prednisone Active Tamsulosin HCl 0.4 MG 1 capsule Orally O nce a day; Duration: 30 day(s) Active EPINEPHrine 0.3 MG/0.3ML as directed Injection Not-Taking Diclofenac Not-Takin g Keflex 500 MG 1 capsule Orally neil ry 12 hrs; Duration: 10 day(s) 10/24/2023 Not-Taking Cephalexin 500 MG 1 capsule Orally neil ry 8 hrs; Duration: 10 days Not-Taking Methotrexate 2.5 MG as directed Orally Not-Taking Metoprolol Succinate ER Not-Taking Acetaminophen-Codeine 300-30 MG 1 tablet as needed Orally every 6 hrs Active Olopatadine HCl 0.1 % 1 drop into affect ed eye Ophthalmic Twice a day Not-Taking Aspirin 81 MG 1 tablet Orally Once a day; Duration: 30 day(s) Active Naloxone HCl 4 MG/0.1ML as directed Nasally Not-Taking Eliquis Active Venlafaxine HCl 75 MG 1 tablet with food Orally Once a day; Duration: 30 day(s) Not-Taking Cardizem Active Ropinirole Hydrochloride Not-Taking Plavix Not-Taking Amoxicillin Not-Taki ng Extra Depth Orthopedic Shoes (1 Pair) with Customized Heat Molded Multidensity Innersoles (3 Pair) as directed Dx: NIDDM/Polyneuropathy (E11.42), Hammertoe Foot Deformity (M20.41,M20.42), Preulcerative Skin Lesion(s) (L85.1 07/25/2024 Active Humira Pen 40 MG/0.4ML as directed Subcutaneous Not-Taking Pravastatin Sodium 40 MG 1 tablet Orally Once a day; Duration: 30 day(s) Active Folic Acid 1 MG 1 tablet Orally Once a day; Duration: 30 day(s) Active Hydrocortisone Not-T aking metFORMIN HCl ER 500 MG 1 tablet with ev ening meal Orally twice a day Active Effexor Active Lidocaine-Prilocaine 2.5-2.5 % as directed Externally Not-T aking EpiPen Active Ketoconazole Not-Dipesh ing Immunizations Vaccine Route Administration Date Status Comme [...] Problem Status W/U Status Risk Notes Problem Other hammer toe(s) (acquired), right foot (M20.41) Active confirmed Problem Acquired hammer toe of left foot ([id number] ) Other hammer toe(s) (acquired), left foot (M20.42) Active confirmed Problem Polyneuropathy due to type 2 diabetes mellitus (272339790) Type 2 diabetes mellitus with diabetic polyneuropathy (E11.42) Active confirmed Vital Signs Blood pressure diastolic 75 mm Hg 07/25/2024 Height 5ft9in in 07/25/2024 Blood pressure systolic 120 mm Hg 07/25/2024 Weight 262 lbs 07/25/2024 BMI 38.69 kg/m2 07/25/2024 Procedures Procedure Date Ordered Date Performed Result Body Sit e 52531-ZBJQNHL SKIN/TISSUE 10/24/2023 N/A 86876-KKLAWKZ SKIN/TISSUE 11/02/2023 N/A 09794-CYMZVQO SKIN/TISSUE 02/04/2024 N/A 99672-ALXRLFK SKIN/TISSUE 02/11/2024 N/A 06621 - Tenotomy, open flexor 02/11/2024 N/A 60244-ATUKPIW SKIN/TISSUE 02/20/2024 N/A 61549-KTDHORO SKIN/TISSUE 03/10/2024 N/A 62280-LGGBONL SKIN/TISSUE 03/17/2024 N/A 96538-DPTLSRB SKIN/TISSUE 03/26/2024 N/A 51009-VCLJGYP NAIL, 1-5 07/25/2024 N/A 43074-ULNH SKIN LESIONS, OVER 4 07/25/2024 N/A M2708-FCCWIQKJ DYSTROPHIC NAILS ANY # 07/25/2024 N/A Encounters Encounter Location Date Provider Diagnosis [facility] [address] [address] 10/24/2023 Barrington Cramer Skin disease L98.9 ; 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 ; Cellulitis of left lower limb L03.116 ; Dry gangrene I96 and Type 2 diabetes mellitus with diabetic polyneuropathy E11.[address] [address] 11/02/2023 Tono Morinunier Skin ulcer of toe of left foot with fat layer exposed L97.522 ; Cellulitis of toe of left foot L03.032 and Type 2 diabetes mellitus with diabetic polyneuropathy E11.[address] [address] 11/07/2023 Barrington Cramer Skin disease L98.9 ; 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 ; Cellulitis of left lower limb L03.116 ; Dry gangrene I96 and Type 2 diabetes mellitus with diabetic polyneuropathy E11.[address] [address] 02/04/2024 Bryanna Garcia Skin ulcer of toe of left foot with fat layer exposed L97.522 ; Hammertoe of left foot M20.42 ; Type 2 diabetes mellitus with diabetic polyneuropathy E11.42 ; History of amputation Z89.9 and Peripheral vascular disease of extremity I73.[address] [address] 02/11/2024 Bryanna Garcia Hammer toe of left foot M20.42 ; Skin ulcer of toe of left foot with fat layer exposed L97.522 ; Type 2 diabetes mellitus with diabetic polyneuropathy E11.42 ; History of amputation Z89.9 and Peripheral vascular disease of extremity I73.[address] [address] 02/20/2024 Bryanna Garcia Hammer toe of left foot M20.42 ; Skin ulcer of toe of left foot with fat layer exposed L97.522 ; Type 2 diabetes mellitus with diabetic polyneuropathy E11.42 ; History of amputation Z89.9 ; Peripheral vascular disease of extremity I73.9 and Subacute osteomyelitis of left foot M86.[address] [address] 03/10/2024 Bryanna Garcia Skin ulcer of toe of left foot with fat layer exposed L97.522 ; Type 2 diabetes mellitus with diabetic polyneuropathy E11.42 ; History of amputation Z89.9 ; Peripheral vascular disease of extremity I73.9 and Subacute osteomyelitis of left foot M86.[address] [address] 03/17/2024 Bryanna Garcia Skin ulcer of toe of left foot with fat layer exposed L97.522 ; Type 2 diabetes mellitus with diabetic polyneuropathy E11.42 ; History of amputation Z89.9 ; Peripheral vascular disease of extremity I73.9 and Subacute osteomyelitis of left foot M86.[address] [address] 03/26/2024 Bryanna Garcia Skin ulcer of toe of left foot with fat layer exposed L97.522 ; Type 2 diabetes mellitus with diabetic polyneuropathy E11.42 ; History of amputation Z89.9 ; Peripheral vascular disease of extremity I73.9 and Subacute osteomyelitis of left foot M86.[address] [address] 04/22/2024 Tono Susanne Skin ulcer of toe of left foot with fat layer exposed L97.522 ; Type 2 diabetes mellitus with diabetic polyneuropathy E11.42 ; History of amputation Z89.9 and Peripheral vascular disease of extremity I73.[address] [address] 07/25/2024 Tono Susanne Type 2 diabetes mellitus with diabetic polyneuropathy E11.42 ; Tinea unguium B35.1 ; Other hammer toe(s) (acquired), right foot M20.41 and Other hammer toe(s) (acquired), left foot M20.[address] [address] 10/24/2023 Barrington Cramer [address] [address] 10/24/2023 [facility] [address] [place] [address] 11/02/2023 Tono Skinner [facility] [address] [place] [address] 11/07/2023 [facility] [address] [place] [address] 11/13/2023 [facility] [address] [place] [address] 02/04/2024 [facility] [address] [place] [address] 02/21/2024 Bryanna Garcia Assessments Encounter Date Diagnosis [...] (ICD-10 - L97.522) Response to treatment Unchanged 07/25/2024 Tinea unguium (ICD-10 - B35.1) 07/25/2024 Type 2 diabetes mellitus with diabetic polyneuropathy (ICD-10 - E11.42) 03/26/2024 History of amputation (ICD-10 - Z89.9) 07/25/2024 Other hammer toe(s) (acquired), right foot (ICD-10 - M20.41) Patient Educated with: DIABETIC FOOT CARE INSTRUCTIONS. pdf (DIABETIC FOOT CARE INSTRUCTIONS. pdf) 04/22/2024 History of amputation (ICD-10 - Z89.9) [...] vascular disease of extremity (ICD-10 - I73.9) 07/25/2024 Other hammer toe(s) (acquired), left foot (ICD-10 - M20.42) 03/26/2024 Peripheral vascular disease of extremity (ICD-10 [...] X ray : Foot, right 3V 12/13/2021 74449-UEEMFZE NAIL, 1-5 07/25/2024 62708-TXPTBNT SKIN/TISSUE 02/11/2024 80539-FYUUKVG SKIN/TISSUE 02/20/2024 00485-CHULYCP SKIN/TISSUE 03/10/2024 34593-XGCILGG SKIN/TISSUE 03/17/2024 48446-FKPWZTU SKIN/TISSUE 03/26/2024 93288-WNOKNBN SKIN/TISSUE 02/04/2024 70727-VFPDXLR SKIN/TISSUE 10/24/2023 43230-OGKCNBW SKIN/TISSUE 11/02/2023 07148-GAYU SKIN LESIONS, OVER 4 07/26/19 K0122-FLKIGPDO DYSTROPHIC NAILS ANY # X ray : Ankle, right 3V 12/13/2021 55842 - Tenotomy, open flexor 02/11/2024 Next Appt Details Provider Name:Bryanna Hand ian, 10/27/2024 03:30:00 PM, [address] [place], [address], Insurance Providers Payer Name Payer Address Payer Phone Subscriber Number Group Number Insured Name Patient Relationship to Insured Coverage Start Date Coverage End Date [employer] 65 Medicare [address] [place] [address] [id number] Lino Nayak Self - patient is the [...] angiogram spinal stenosis surgery 2019 bilateral TKR [phone] Stent Hospitalization History Reason Date(Month/Year) Capsasin treatment x30 minutes/4x year 1 st dosw 12/04/2021 Stent Right leg 09/13/2021 Stent Left leg 08/09/2021 Ultrasound Bilateral legs, angiogram Lef t leg 06/30/2021 Injection, [facility] 07/06/2021 MRI Left Foot 03/10/2021 Xray left Foot 03/04/2021
--- OUTSIDE RECORDS SUMMARY | 2024-09-04 12:54 | XMS_ITS | Clinical Summary ---
Author Organization [facility] Address [address] [place] [address] Care Team Providers Care Workforce Specialist Name Role Phone MohamudJas villegas Moy Primary Care Provider [phone] Allergies Active Allergy Reactions Criticality Noted Date [...] Date Diagnosed Date Resolved Date Atherosclerosis of [place] of extremities with gangrene, left [...] half, previously drank 9 drinks per week [facility] Utilities Answer Date Recorded In the past 12 months has th e [employer] gas, oil, or water [employer] threatened to shut off services in your [...] 68 03/11/2024 1:11 PM EST Temperature 36.7 C (98.1 F) 03/11/2024 1:11 PM EST Respiratory Rate 18 03/11/2024 1:11 PM EST Oxygen Saturation 97% 03/11/2024 1:11 PM EST Inhaled Oxygen Concentration - - Weight 126.6 kg (279 lb) 03/11/2024 1:11 PM EST Height 175.3 cm (5' 9 ) 03/11/2024 1:11 PM EST Body Mass Index 41.2 03/11/2024 1:11 PM EST Plan of Treatment Upcoming Encounters Date Type Department Care Team (Late st Contact Info) Description 09/08/2024 8:45 AM EDT Appointment [facility] [address] [place] [address] 09/08/2024 10:15 AM EDT Appointment [facility] [address] [place] [address] 09/08/2024 11:00 AM EDT Appointment [facility] [address] [place] [address] 09/08/2024 11:30 AM EDT Follow-Up [facility] Building Vascular Surgery [address] [place] [address] Health And Wellness Manager: Rosanna Lau, THERESE [address] [place] [address] Health Maintenance Due Date Last Done Comments [...] Vaccine: 50+ Years (2 of 2 - PCV20 or PCV21) 12/23/2019 12/22/2018 COVID-19 Vaccine ( season) 2023 03/10/2021, 10/27/2020, 10/06/2020 Alcohol/Substance Use Screening 03/05/2024 Depression Screening and Follow-Up 03/05/2024 Health Care Proxy Review 03/05/2024 Social Drivers of Health Annual Screening 03/05/2024 Influenza Vaccine (#1) 2024 , 12/22/2018, 12/12/2017, Additional history exists Hepatitis B Vaccines Aged Out No long er eligible based on patient's age to complete this topic Medical Devices Implanted Type Area Glue Size Machine Operator Device Identifier Shelf Expiration Date Model / Serial / Lot System Closure And Repair Suture-Mediate d Perclose Prostyle - [id number] Implanted:Qty: 1 on 08/09/2021 by Denton Palacios [facility] at [facility] Implant Left: Leg [employer] 01/02/2023 [id number] / / System Closure And Repair Suture-Mediate d Perclose Prostyle - S0 - [id number] Implanted:Qty: 1 on 09/13/2021 by Denton Palacios MD at [facility] Implant Left: Leg [employer] [id number] 07/03/2023 09333-09 / 0 / [id number] System Closure And Repair Suture-Mediate d Perclose Prostyle - S0 - [id number] Implanted:Qty: 1 on 11/13/2023 by Denton Palacios MD at [facility] Implant N/A: Groin [employer] [id number] 09/01/2025 62986-80 / 0 / [id number] Patch Pericardium Bovine .[id number] Photofix - [id number] Implanted:Qty: 1 on 11/21/2023 by Denton Palacios MD at [facility] Implant Left: Arterial [employer] 06/08/2025 PFP0.8X8 / / [id number] Patch Pericardium Bovine .[id number] Photofix - [id number] Implanted:Qty: 1 on 11/21/2023 by Denton Palacios MD at [facility] Implant Left: Arterial [employer] 05/11/2025 PFP0.8X8 / / [id number] Stent System Vascular [id number] Biomimics 3d - S0 - [id number] Implanted:Qty: 1 on 08/09/2021 by Denton Palacios MD at [facility] Stent Left: Leg [employer] [id number] 10/21/2022 058650 -1 1 / 0 / [id number] Stent System Vascular [id number] Biomim[employer] 3d - S0 - [id number] Implanted:Qty: 1 on 09/13/2021 by Denton Palacios MD at [facility] Stent Right: [facility] [id number] 02/09/2023 176523 -1 0 / 0 / [id number] Stent Icast Covered [id number] - [id number] - [id number] Implanted:Qty: 1 on 11/13/2023 by Denton Palacios MD at [facility] Stent Left: Arterial [employer] [facility] [id number] 12/13/2025 [id number] / [id number] / Insurance MCR REPLACE PPO Advance [...] 8:48 AM 09/06/2021 4:36 PM Care Teams Workforce Specialist Relationship Specialty Start Date End Date Jas Casarez [address] [place] [address] PCP - General 07/19/21
--- NOTE | 2024-09-04 13:11 | MHC.OFFVIS ---
Vital Signs 09/04/24 13:12 Height 5 ft 9 in Weight 251 lb 5.231 oz BMI 37.1 BP 120/60 Blood Pressure Location Lt brachial Position Sitting Pulse 52 Pulse Source Monitor Intake Visit Reasons: pt booked sooner amiodarone Sterile Preparation Technician Required: No Accompanied by: Spouse Allergies NSAIDS (Non-Steroidal Anti-Inflamma Allergy (Severe, Verified 08/14/24 14:45) Anaphylaxis methadone Allergy (Intermediate, Verified 08/14/24 14:45) Vomiting Medication List - Last Reconciled 09/04/24 by Ari Orta MD acetaminophen-codeine 300-30 mg 1 tab PO BID PRN 30 days amiodarone 400 mg PO BID amiodarone 200 mg PO ONCE apixaban (Eliquis) 5 mg PO BID 90 days aspirin 81 mg PO DAILY blood sugar diagnostic (FreeStyle Test strips) Test blood sugar once a day cholecalciferol (vitamin D3) 50 mcg PO DAILY 90 days CPAP Machine/Device (CPAP) use daily NS [Diabetic shoes with 3 pair of custom orthotics wear daily] diclofenac sodium 1% 4 grams topical QID PRN 30 days diltiazem HCl ER 120 mg PO BID 90 days epinephrine (EpiPen) 0.3 mg (0.3 mL) IM Q10M PRN ketoconazole 2% 1 appl topical 2XW metformin ER 500 mg PO DAILY 90 days oxybutynin chloride ER 10 mg PO DAILY 90 days pravastatin 40 mg PO DAILY prednisone 10 mg (2 x 5 mg) PO DIRECTED 90 days ropinirole 0.5 mg PO BEDTIME semaglutide 2 mg (0.75 mL) subcut QWEEK 30 days tadalafil 20 mg PO DAILY PRN tamsulosin 0.4 mg PO DAILY 90 days venlafaxine ER 150 mg PO DAILY 90 days HPI Comments Details: Lino is here for follow-up regarding coronary artery disease. He has morbid obesity, polymyalgia rheumatica, rheumatoid arthritis on chronic steroids. In the past, he underwent cardiac workup due to shortness of breath. He had nonobstructive disease in the LAD which is being treated medically. In 2023, he had vascular surgery at [facility]. Per notes, left-sided femoral endarterectomy/great toe amputation. In that setting, found to have atrial fibrillation. More recently, he underwent Holter monitor which showed a high atrial fibrillation burden. Patient himself just as some shortness of breath which he has had in the past but no palpitations. After that, we started him on amiodarone loading. He states that after this, he has been feeling more short of breath. By today's EKG, he has got some sinus bradycardia and that might be the reason. He has got no angina. No palpitations pursued. No presyncope or syncope. [facility] Medical History Amputation of left great toe Cellulitis Dry gangrene Spinal cord stimulator status Polymyalgia rheumatica PAD (peripheral artery disease) Ascending aorta dilatation Sleep apnea Type 2 diabetes mellitus with peripheral neuropathy Diabetes mellitus due to underlying condition with diabetic neuropathy, without long-term current use of insulin Arterial insufficiency Iatrogenic Viking's disease Morbid obesity Atherosclerotic cardiovascular disease Diabetic neuropathy associated with type 2 diabetes mellitus Seronegative rheumatoid arthritis Obesity (BMI 30-39.9) Vitamin D deficiency Diabetes type 2, controlled Osteopenia Adrenal 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 Painful total knee replacement, right Surgical History Status post amputation History of endarterectomy History of esophagogastroduodenoscopy (EGD) H/O colonoscopy Hx of coronary angiogram History of back surgery (~2017) History of knee replacement procedure of right knee History of knee replacement procedure of left knee Hx of cardiac cath Family History Father Angina pectoris Mother Stroke Social History Household Members: Spouse Housing: House Are you a primary rn progressive care unit to a significant other at home: No Do you presently have visiting nurse or other home services: No 75 years or older and lives alone: No Alcohol intake: former Year quit: 2023 Patient Tobacco Use Status: Former Tobacco user Years Smoked: 20 years ago e-Cigarette/Vaping Use: Never Used Second Hand Smoke Exposure: No Substance Use Type: Marijuana service: No Current occupational status: retired Cognitive needs: No Hearing needs: No Vision needs: No Review of Systems Const Denies chills, Denies fatigue, Denies fever(s), Denies frequent falls, Denies weakness, Denies weight gain and Denies weight loss ENT Reports dizziness Card Denies chest pain, Denies leg edema, Reports lightheadedness, Reports palpitations, Reports dyspnea and Reports dyspnea on exertion Resp Denies cough, Reports dyspnea and Reports dyspnea on exertion GI Denies hematochezia Musc Denies abnormal gait, Denies muscle weakness, Denies numbness, Denies radiating pain into limb and Denies tingling Neuro Denies abnormal gait, Reports dizziness, Denies frequent falls, Denies numbness, Denies tingling and Denies weakness Endo Denies fatigue and Reports palpitations Physical Exam Vital Signs: Last Vital Signs Pulse 52 09/04/24 13:12 BP 120/60 09/04/24 13:12 BMI result Body Mass Index 37.1 Const General: comfortable and no acute distress Orientation/consciousness: patient oriented x3 HEENT Other: Unremarkable Head: Yes normal to inspection Neck Neck: Yes normal visual inspection Chest Chest palpation & inspection: normal inspection of the chest Resp Auscultation: clear to auscultation bilaterally Cardio Palpation: normal PMI Heart sounds: S1 normal heart sound present, S2 normal heart sound present, no gallops, no murmurs and no rubs GI Palpation (GI): Soft to palpation Back/Spine/Pelvis Other: unremarkable Skin General skin exam: no rashes or lesions noted Neuro General: patient oriented x3 Extrem General: Yes normal to inspection Psych Mental Status: mental status grossly normal Assessment & Plan Assessment & Plan (1) Atherosclerotic cardiovascular disease: Comment: follows with [facility] Code(s): I25.10 - Atherosclerotic heart disease of [place] coronary artery without angina pectoris Category: Medical Plan: Cardiac catheterization from 2019 showed 50% stenosis in the mid LAD, but IFR itself was not significant. Minor irregularities in the circumflex and right coronary arteries and left main was normal. Unremarkable perfusion imaging from 02/2023. Clinically, no overt symptoms. Mainly risk factor modification. Continue statins. He is only on low dose of Pravastatin as he cannot take high dose Atorvastatin. Acceptable lipids. (2) PAF (paroxysmal atrial fibrillation): Code(s): I48.0 - Paroxysmal atrial fibrillation Category: Medical Plan: In the recent Holter, sinus rhythm with atrial fibrillation. Atrial fibrillation burden was as much as 40%. He does get lot of rapid rates. He did not feel good with the amiodarone loading dose. Hence cut down the dose to 100 mg daily. We will also decrease the diltiazem to once a day. Symptoms could be from sinus bradycardia. We discussed about amiodarone toxicity in the long run. Need a different agent like Multaq or to consider EP referral/ablation. Continue anticoagulation. (3) Morbid obesity: Code(s): E66.01 - Morbid (severe) obesity due to excess calories Category: Medical Plan: Long-term issue and not clear how much can change. (4) Ascending aorta enlargement: Code(s): I77.89 - Other specified disorders of arteries and arterioles Category: Medical Plan: Ascending aortic size 4 cm on echocardiogram. Prior to this, 4.4 cm. We can follow this on echocardiogram. Plan Discussion Notes During the visit, we discussed the management of atrial fibrillation, including the adjustment of Diltiazem dosage to once daily and the continuation of Eliquis to prevent thromboembolic events. We also reviewed the patient's peripheral artery disease. The importance of weight loss was emphasized as a means to potentially improve atrial fibrillation and overall cardiovascular health. A follow-up appointment was scheduled for three months, with a recommendation for a Holter monitor test prior to the visit to assess the current status of the atrial fibrillation. Patient was informed and verbally consented to the use of an ambient scribe for clinic note documentation during this visit. Discussed with significant other. Orders: Orders ECG 3 day holter monitor 2 Months I48.0 - Paroxysmal atrial fibrillation Medications: Changed From amiodarone Start once daily on 09/09/2024. 200 mg PO DAILY 30 tabs 5RF To amiodarone Start once daily on 09/09/2024. 200 mg PO ONCE From diltiazem HCl ER 120 mg PO BID 90 days 180 caps 3RF I48.0 - Paroxysmal atrial fibrillation To diltiazem HCl ER 120 mg PO ONCE 90 caps 3RF 90 days I48.0 - Paroxysmal atrial fibrillation Patient Instructions: - Take diltiazem once daily, with the option to skip doses to allow heart rate to increase slightly. - Continue taking Eliquis twice daily. - Continue efforts to lose weight to improve cardiovascular health. - Schedule and complete a Holter monitor test before the next follow-up appointment in three months. Coding Level of Care Code Est Pt Level 4 (84443) Complex EM visit Add On G2211 Diagnoses Atherosclerotic cardiovascular disease I25.10 PAF (paroxysmal atrial fibrillation) I48.0 Morbid obesity E66.01 Ascending aorta enlargement I77.89
[2024-09-04 13:12] VITALS: BP 120/60; PULSE 52; BMI 37.1
== END 2024-09-04 13:37 | disposition home or self-care (01) ==
LOC: HO.HCS 12:48
PROVIDERS: PCP Nurse Practitioner Family; Visit Provider Internal Medicine
DX: I25.10 Atherosclerotic heart disease of native coronary artery without angina pectoris (principal); I48.0 Paroxysmal atrial fibrillation; E66.01 Morbid (severe) obesity due to excess calories; I77.89 Other specified disorders of arteries and arterioles
CPT/HCPCS: 93010; 99214; G2211

== ENCOUNTER → 2024-09-04 12:48 | Outpatient (BNVA) | payer MEDICARE, SELFPAY | PROVIDERS: PCP Nurse Practitioner Family; Visit Provider Internal Medicine | DX: I25.10 Atherosclerotic heart disease of native coronary artery without angina pectoris (principal); I48.0 Paroxysmal atrial fibrillation; E66.01 Morbid (severe) obesity due to excess calories; I77.89 Other specified disorders of arteries and arterioles | CPT/HCPCS: 93005; 99212 ==

== ENCOUNTER 2024-09-18 10:28 | Emergency (ER) | payer MEDICARE, SELFPAY ==
--- NOTE | 2024-09-18 | ECG_ITS ---
Test Reason : PALPITATION Blood Pressure : */* mmHG Vent. Rate : 73 BPM Atrial Rate : * BPM P-R Int : * ms QRS Dur : 102 ms QT Int : 410 ms P-R-T Axes : * 75 39 degrees QTcB Int : 451 ms Atrial fibrillation Abnormal ECG When compared with ECG of 05-Jan-2024 03:42, No significant change was found Referred By: Generic ED Physician Electronically Signed By: JOHANA MASSEY
--- NOTE | ~2024-09-18 | XR_ITS ---
EXAMINATION: XR CHEST CLINICAL INFORMATION: SOB COMPARISON: January 03, 2024 TECHNIQUE: 2 views of the chest were obtained. FINDINGS: No significant abnormality is noted involving the heart, lungs, mediastinum, bony thorax or soft tissues. There is 2 mm projects along the midline in the mid to lower thoracic spine. No change. Osteophytes and mild disc space narrowing is present in the thoracic spine. XR/XR chest 2V IMPRESSION: No acute disease. Electronically signed by: Bennie Fulton MD 09/18/2024 12:17 PM EDT RP
[2024-09-18 10:33] VITALS: BP 130/70; PULSE 68; RESP 20; TEMP 36.4; O2SAT 95; BMI 36.9
--- NOTE | 2024-09-18 10:48 | ED_ITS ---
HPI - General Adult General Chief complaint: Arrhythmia/Palpitations Stated complaint: rapid heart rate, afib sob Time Seen by Provider: 09/18/24 10:48 Source: patient and family (patient's ) Mode of arrival: ambulatory Limitations: no limitations History of Present Illness ED Provider: Faviola Berman PA-C HPI narrative: 69 year old male with past medical history of paroxysmal atrial fibrillation (diagnosed 01/2024, anticoagulated with Eliquis and rate controlled with Amiodarone and Diltiazem), HTN, PAD, ascending aorta enlargement, DM2, morbid obesity, sleep apnea, low TSH, polymyalgia rheumatica, rheumatoid arthritis, adrenal insufficiency with senior living systemic steroid use, vitamin D deficiency, and osteopenia presents to ER on 09/18 with chief complaint of feeling palpitations intermittently for the past 3 weeks. He has been experiencing associated fatigue and increased shortness of breath, including SOB at rest for the past 3 weeks. He was recently started on amiodarone 3 weeks ago. He has been taking diltiazem 120 g daily since his diagnosis. He follows with cardiology regularly. Related Data Home Medications ?Medication ?Instructions ?Recorded ?Confirmed amiodarone 200 mg tablet 200 mg PO ONCE 09/04/2405/27 Previous Rx's ?Medication ?Instructions ?Recorded epinephrine 0.3 mg/0.3 mL 0.3 mg (0.3 mL) IM Q10M PRN 04/20/21 injection, auto-injector (EpiPen) anaphylaxis #2 ea aspirin 81 mg tablet,delayed 81 mg PO DAILY #90 tabs 1 release CPAP Machine/Device (CPAP) #1 ea 04/11/22 Diabetic shoes with 3 pair of #1 ea 05/24/23 custom orthotics cholecalciferol (vitamin D3) 50 50 mcg PO DAILY 90 day s #90 caps 12/13/23 mcg (2,000 unit) capsule pravastatin 40 mg tablet 40 mg PO DAILY #90 tabs 06/26 blood sugar diagnostic (FreeStyle #100 ea 01/25/24 Test strips) diclofenac sodium 1 % topical gel 4 g topical QID PRN for pain 30 02/04/24 days #100 grams apixaban 5 mg tablet (Eliquis) 5 mg PO BID 90 days #18 0 tabs 02/18/24 tamsulosin 0.4 mg capsule 0.4 mg PO DAILY 90 days #90 caps 03/18/24 tadalafil 20 mg tablet 20 mg PO DAILY PRN sexual ac tivity 04/10/24 #10 tabs acetaminophen 300 mg-codeine 30 mg 1 tab PO BID PRN pa in 30 days #60 06/10/24 tablet tabs metformin 500 mg tablet,extended 500 mg PO DAILY 90 da ys #90 tabs 06/11/24 release 24 hr venlafaxine 150 mg 150 mg PO DAILY 90 days #90 caps 06/11/24 capsule,extended release 24 hr oxybutynin chloride 10 mg 10 mg PO DAILY 90 days #90 t abs 06/30/24 tablet,extended release 24 hr ropinirole 0.5 mg tablet 0.5 mg PO BEDTIME #90 tabs 0 07/14/24 prednisone 5 mg tablet 10 mg (2 x 5 mg) PO DIREC KEDAR 90 08/17/24 days #200 tabs amiodarone 400 mg tablet 400 mg PO BID #28 tabs 08/26 ketoconazole 2 % shampoo 1 appl topical 2XW #120 mL 0 08/28/24 semaglutide 2 mg/dose (8 mg/3 mL) 2 mg (0.75 mL) subcu t QWEEK #3 mL 09/17/24 subcutaneous pen injector (Ozempic) Allergies Allergy/AdvReac Type Severity Reaction Status Date / Time NSAIDS (Non-Steroidal Allergy Severe Anaphylaxis Verified 09/18/24 10:40 Anti-Inflamma methadone Allergy Intermediate Vomiting Verified 09/18/24 10:40 Review of Systems 2 Constitutional: Constitutional: Reports as per HPI, Reports no additional constitutional complaints, Denies chills, Reports fatigue, Denies fever(s) and Denies night sweats Eyes: Eyes: Reports no additional eye complaints, Denies blurry vision, Denies change in vision, Denies diplopia, Denies eye discharge, Denies loss of vision and Denies eye pain ENT: Denies dizziness Cardiovascular: Cardiovascular: Reports no additional cardiovascular complaints, Denies chest pain, Denies lightheadedness, Denies Loss of Consciousness, Reports palpitations and Reports dyspnea Respiratory: Respiratory: Reports no additional respiratory complaints and Reports dyspnea Gastrointestinal: Gastrointestinal: Reports no additional gastrointestinal complaints, Denies abdominal pain, Denies melena, Denies hematochezia, Denies change in bowel habits and Denies change in stool character Genitourinary: Genitourinary: Reports no additional male genitourinary complaints, Denies hematuria, Denies oliguria, Denies difficulty urinating, Denies dysuria, Denies urinary frequency, Denies urinary hesitancy, Denies urinary incontinence and Denies urinary urgency Musculoskeletal: Musculoskeletal: Reports no additional musculoskeletal complaints, Denies numbness and Denies tingling Neurologic: Denies dizziness, Denies loss of vision, Denies numbness and Denies tingling Psychiatric: Psychiatric: Reports no additional psychiatric complaints Endocrine: Endocrine: Reports no additional endocrine complaints, Reports fatigue and Reports palpitations Hematologic/Lymphatic: Hematologic/Lymphatic: Reports no additional hematologic/lymphatic complaints Allergic/Immunologic: Allergic/Immunologic: Reports no additional allergic/immunologic complaints PMF Past Medical History Attestation statement: The following information was validated with the patient. (all information validated with the patient's ) Source: old records reviewed, obtained from family (patient's provided additional history and confirmed the history provided by the patient.) and nursing notes reviewed Medical History Amputation of left great toe Cellulitis Dry gangrene Spinal cord stimulator status Polymyalgia rheumatica PAD (peripheral artery disease) Ascending aorta dilatation Sleep apnea Type 2 diabetes mellitus with peripheral neuropathy Diabetes mellitus due to underlying condition with diabetic neuropathy, without long-term current use of insulin Arterial insufficiency Iatrogenic Dennys's disease Morbid obesity Atherosclerotic cardiovascular disease Diabetic neuropathy associated with type 2 diabetes mellitus Seronegative rheumatoid arthritis Obesity (BMI 30-39.9) Vitamin D deficiency Diabetes type 2, controlled Osteopenia Adrenal 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 Painful total knee replacement, right Surgical History Status post amputation History of endarterectomy History of esophagogastroduodenoscopy (EGD) H/O colonoscopy Hx of coronary angiogram History of back surgery (~2018) History of knee replacement procedure of right knee History of knee replacement procedure of left knee Hx of cardiac cath Family History Family History Father Angina pectoris Mother Stroke Social History Social History Household Members: Spouse Housing: House Are you a primary home care nurse to a significant other at home: No Do you presently have visiting nurse or other home services: No Alcohol intake: former Year quit: 2023 Patient Tobacco Use Status: Former Tobacco user Years Smoked: 20 years ago Smoked in Last 30 Days: No e-Cigarette/Vaping Use: Never Used Second Hand Smoke Exposure: No Substance Use Type: Marijuana Advance Directives: Yes Advance Directives on File: Yes Advance Directives Date on File: 01/07/24 service: No Current occupational status: retired Cognitive needs: No Hearing needs: No Vision needs: No Physical Exam ED Vital Signs: Vital Signs - 24 hr 09/18/24 10:33 09/18/24 13:03 Temperature 97.6 F 97.6 F Pulse Rate 68 68 Respiratory Rate 20 20 Blood Pressure 130/70 130/70 Pulse Oximetry 95 95 Oxygen Delivery Method Room Air Room Air BMI result Body Mass Index 36.9 Const General: cooperative, no acute distress, alert and awake Nutritional Appearance: well nourished Orientation/consciousness: patient oriented x3 HENMT Head: Yes normal to inspection and Yes atraumatic Ears: hearing grossly normal bilaterally and external ears normal General nose exam: Normal external nose present, no nasal discharge noted and no epistaxis Face and sinus: Yes normal facial exam, No abrasion and No laceration Mouth: Normal oral and palatal mucosa present, no drooling and no muffled voice Eyes General: appearance normal, both eyes and all related structures Periorbital: periorbital findings normal Eyelids: Yes eyelids normal Conjunctivae: conjunctivae normal Pupils: Equal, round and reactive pupils present EOM: EOMs intact bilaterally Neck Neck: Yes normal visual inspection, Yes full ROM and Yes no lymphadenopathy Resp Effort & Inspection: normal respiratory effort and able to speak in complete sentences Cardio Rate: regular rate Rhythm: abnormal rhythm irregularly irregular Neuro General: patient oriented x3, moves all extremities and CN's II-XI intact bilaterally Cranial nerves: Yes Equal, round and reactive pupils present Cognition (Neuro): normal cognition Extrem General: Yes normal to inspection, Yes full ROM and Yes capillary refill normal Psych Appearance: grossly normal Mental Status: mental status grossly normal Affect: normal affect Attitude: cooperative Thought process: Normal thought process present Thought content: Normal thought content present Insight: Good insight present (Psych) Medical Decision Making Medical Decision Making MDM Narrative: Patient is a 69 year old assigned male at with a history of paroxysmal atrial fibrillation (diagnosed 01/2024, anticoagulated with Eliquis and rate controlled with Amiodarone and Diltiazem), HTN, PAD, ascending aorta enlargement, DM2, morbid obesity, sleep apnea, low TSH, polymyalgia rheumatica, rheumatoid arthritis, adrenal insufficiency with senior living systemic steroid use, vitamin D deficiency, and osteopenia presenting to the emergency department today with palpitations, concern of a low heart rate, and continued shortness of breath. Patient's physical exam showed rate controlled atrial fibrillation. Patient's blood work was unremarkable. Patient's EKG showed rate controlled atrial fib. Patient's chest x-ray showed no acute process. I spoke with the patient's development professional, Dr. Orta who recommended discontinuing the patient's diltiazem but having him continue the amiodarone. He did not recommend hospital admission. I explained my physical exam findings as well as all test results to the patient and the patient's . I answered all questions asked by the patient and the patient's . Patient did not experience any bradycardia while in the department. Patient expressed that he felt normal . I stressed the importance of the patient taking his medication as directed (either prescribed or as the over the counter packaging recommends). I stressed the importance of the patient following up with his primary care provider and his development professional. I stressed the importance of the patient returning to the emergency department immediately if his symptoms were to worsen or if he were to develop any dizziness, shortness of breath, difficulty breathing, chest pain, blurry vision, loss of vision, nausea, vomiting, abdominal pain, fever, chills, back pain, or any other complaints. Patient and the patient's verbalized agreement and understanding with this treatment plan and discharge. Differential Diagnosis Differential Diagnoses: The differential diagnosis associated with the presentation includes Atrial fib Bradycardia Shortness of breath NSTEMI STEMI Admission/Observation Consideration of admission/observation: Escalation of care including admission/observation considered Patient would have been admitted to the hospital had his work up had any findings where hospital admission was appropriate and his clinical presentation warranted hospital admission. Consult Healthcare Provider Management of the patient was discussed with: Scallop Shucker (spoke with the development professional carbon coater machine operator as noted in the MDM Rationale portion of this note. ) Lab Data [facility] Lab Attestation statement: I reviewed the patient's lab results. My interpretation of these results are in the MDM Rationale portion of this note. 09/18/24 11:11 09/18/24 11:11 Labs: Lab Results 09/18/24 09/18/24 Range/Units 11:01 11:11 WBC 5.9 (4.8-10.8) X10*3/uL RBC 4.35 L (4.60-5.80) X10*6/uL Hgb 13.8 L (14.0-18.0) g/dl Hct 40.1 L (42.0-52.0) % MCV 92.2 (80.0-98.0) fL MCH 31.7 (27.0-33.0) pg MCHC 34.4 (31.0-36.0) g/dl RDW 13.8 (11.0-16.0) % Plt Count 156 L (160-400) X10*3/uL MPV 8.8 L (9.4-12.4) fL Immature Gran % (Auto) 1.4 H (0.0-0.4) % Neut % (Auto) 66.4 (45-73) % Lymph % (Auto) 18.6 L (20-40) % [place] % (Auto) 9.7 (2-11) % Eos % (Auto) 3.6 (0-4) % Baso % (Auto) 0.3 (0-2) % Lymph # (Auto) 1.1 L (1.2-4.9) X10*3/uL [place] # (Auto) 0.6 (0.1-1.2) X10*3/uL Eos # (Auto) 0.2 (0.0-0.4) X10*3/uL Baso # (Auto) 0.0 (0.0-0.2) X10*3/uL Abs Immat Gran (auto) 0.08 H (0.00-0.03) X10*3/uL Absolute Neuts (auto) 3.9 (2.0-8.3) x10*3/uL Absolute Nucleated RBC 0.000 (0.0-0.012) X10*3/uL Nucleated RBC % (auto) 0.0 (0.0-0.2) /100WBC Sodium 140 (135-145) mmol/L Potassium 4.9 (3.3-5.1) mmol/L Chloride 107 (96-108) mmol/L Carbon Dioxide 27 (22-29) mmol/L Anion Gap 11 L (12-20) BUN 12 (9-16) mg/dL Creatinine 0.96 (0.5-1.4) mg/dL Estim Creat Clear Calc 87.6 Estimated GFR > 60 Random Glucose 101 (60-115) mg/dL Calcium 9.2 (8.4-10.2) mg/dL Total Bilirubin 0.8 (0.0-1.0) mg/dL AST 17 (5-37) U/L ALT 24 (0-40) U/L Alkaline Phosphatase 61 (39-117) U/L Troponin I High Sens < 2.7 (<3.5-35.0) ng/L B-Natriuretic Peptide 13 (<100) pg/mL Total Protein 6.3 L (6.5-8.0) g/dL Albumin 3.9 (3.5-5.0) g/dL Influenza Type A (PCR) NEGATIVE (Negative) Influenza Type B (PCR) NEGATIVE (Negative) RSV RNA Qual (PCR) NEGATIVE (Negative) SARS-CoV-2 RNA (RT-PCR) NEGATIVE (Negative) Independent Interpretation I performed an independent interpretation of an: EKG and Plain X-Ray Interpretation: My interpretation is in agreement with the radiologist's impression of this imaging study. L EXAMINATION: XR CHEST CLINICAL INFORMATION: SOB COMPARISON: January 03, 2024 TECHNIQUE: 2 views of the chest were obtained. FINDINGS: No significant abnormality is noted involving the heart, lungs, mediastinum, bony thorax or soft tissues. There is 2 mm projects along the midline in the mid to lower thoracic spine. No change. Osteophytes and mild disc space narrowing is present in the thoracic spine. XR/XR chest 2V IMPRESSION: No acute disease. Electronically signed by: Bennie Fulton MD 09/18/2024 12:17 PM EDT Dictated By: Bennie Fulton MD Signed By: Electronically signed by Bennie Fulton MD 09/18/24 1217 I independently interpreted this EKG and am in agreement with the below findings: Vent. Rate: 73 BPM Atrial Rate: * BPM P-R Int: * ms QRS Dur: 102 ms QT Int: 410 ms P-R-T Axes: * 75 39 degrees QTcB Int: 451 ms Atrial fibrillation Abnormal ECG When compared with ECG of 05-Jan-2024 03:42, No significant change was found DD/ [id number] Radiology Impression Discussion of test interpretation with radiology: I have reviewed the radiologist's reading. Independent Historian Clinical information obtained from an independent historian. History obtained from or confirmed by: Spouse (patient's provided additional history and confirmed the history provided by the patient. ) Critical Care Time Critical Care Time Critical Care Time: Yes Total Critical Care Time: 33 Attestation: I spent 33 minutes of Critical Care Time with this patient. This does not include time spent on separately reported billable procedures. Discharge Plan Discharge Clinical Impression: Bradycardia Patient Disposition: Home, Self-Care Instructions: Bradycardia (ED) Additional Instructions: Your work up today was reassuring that there is no EMERGENT cause for your symptoms. STOP taking your Diltiazem as directed by your development professional. Please follow up with your development professional. While in nature, please NEVER be alone or far from help. Follow up with your primary care provider. Return to the emergency department immediately if your symptoms worsen or if you develop any numbness, tingling, dizziness, shortness of breath, difficulty breathing, chest pain, blurry vision, loss of vision, nausea, vomiting, abdominal pain, fever, chills, back pain, or any other complaints. Please see the information below about our Patient Portal. If you are not yet enrolled in the [facility] Patient Portal, you will receive an enrollment email invitation following your visit to any [facility] care setting. You may also self-enroll in the Patient Portal by visiting our website: [email or web address] The following information is required to access the Patient Portal: - Your [facility] Medical Record Number - Your personal home email address (must match what is in your electronic medical record, Registration staff can assist with this) - Name - Date of Capabilities of the Patient Portal: - Message some providers - View upcoming appointments - Access your health summary, medical history, and visit history - View current conditions and allergies - View procedure and lab results - View your medications, including guidelines, side effects, and precautions - Complete pre-appointment questionnaires requested by your provider - Ready summary reports of your office visits and procedures To access the Patient Portal Mobile [employer], follow these directions: - Search [employer] in the [employer] Store or [employer]Now Store - Download the [employer] - Search for [facility] - Enter your login/password Prescriptions: Discontinued diltiazem HCl 120 mg capsule,extended release 12 hr 120 mg PO ONCE 90 Days Qty: 90 3RF No Action epinephrine [EpiPen] 0.3 mg/0.3 mL auto-injector 0.3 mg IM Q10M PRN (Reason: anaphylaxis) Qty: 2 3RF Rx Instructions: for 2 doses aspirin 81 mg tablet,delayed release (DR/EC) 81 mg PO DAILY Qty: 90 3RF (DME) CPAP Machine/Device Device See Rx Instructions .Route Qty: 1 0RF Rx Instructions: use daily cholecalciferol (vitamin D3) 50 mcg (2,000 unit) capsule 50 mcg PO DAILY 90 Days Qty: 90 1RF pravastatin 40 mg tablet 40 mg PO DAILY Qty: 90 3RF (DME) FreeStyle Test Strip See Rx Instructions .Route Qty: 100 1RF Rx Instructions: Test blood sugar once a day Eliquis 5 mg tablet 5 mg PO BID 90 Days Qty: 180 3RF tadalafil 20 mg tablet 20 mg PO DAILY PRN (Reason: sexual activity) Qty: 10 3RF Rx Instructions: administer approximately 30min before sexual activity; do not use more than 1 dose per 24hrs metformin 500 mg tablet extended release 24 hr 500 mg PO DAILY 90 Days Qty: 90 1RF venlafaxine 150 mg capsule,extended release 24hr 150 mg PO DAILY 90 Days Qty: 90 1RF oxybutynin chloride 10 mg tablet extended release 24hr 10 mg PO DAILY 90 Days Qty: 90 1RF ropinirole 0.5 mg tablet 0.5 mg PO BEDTIME Qty: 90 1RF Rx Instructions: administer 1-3 hours before bedtime amiodarone 400 mg tablet 400 mg PO BID Qty: 28 0RF Rx Instructions: 1 tablet twice daily for 2 weeks. ketoconazole 2 % shampoo 1 appl topical 2XW Qty: 120 1RF Rx Instructions: When patient showers. Ozempic 2 mg/dose (8 mg/3 mL) pen injector 2 mg subcut QWEEK Qty: 3 5RF tamsulosin 0.4 mg capsule 0.4 mg PO DAILY 90 Days Qty: 90 3RF (DME) Diabetic shoes with 3 pair of custom orthotics See Rx Instructions .Route .MEDSUPPLY Qty: 1 0RF Rx Instructions: wear daily diclofenac sodium 1 % gel 4 g topical QID PRN (Reason: for pain) 30 Days Qty: 100 4RF amiodarone 200 mg tablet 200 mg PO ONCE Rx Instructions: Start once daily on 09/09/2024. acetaminophen-codeine 300-30 mg tablet 1 tab PO BID PRN (Reason: pain) 30 Days Qty: 60 1RF Rx Instructions: Partial Fill upon patient request. prednisone 5 mg tablet 10 mg PO DIRECTED 90 Days Qty: 200 1RF Rx Instructions: Take one tablet twice a day. Can increase by 0.5 tablet to 1 tablet daily when needed Referrals: [facility] [Provider Group] Jas Casarez, WINDOW INSTALLER-BC [Primary Care Provider, Internal Medicine] Interventions: ED Discharge Assessment Last Done: 09/18/24 13:03 Discharge Date/Time: 09/18/24 13:21 Print Language: Macedonian
[2024-09-18 11:16] VITALS: PULSE 73
[2024-09-18 11:16] LABS: MANUAL DIFF FLAG NO
[2024-09-18 11:18] LABS: Hematocrit 40.1 % (42.0-52.0); Hemoglobin 13.8 g/dl (14.0-18.0); Imm Gran Abs Auto 0.08 X10*3/uL (0.00-0.03); Imm Gran Pct Auto 1.4 % (0.0-0.4); Lymphocytes Absolute Auto 1.1 X10*3/uL (1.2-4.9); Mean Corpuscular HGB Conc 34.4 g/dl (31.0-36.0); Mean Corpuscular Hemoglobin 31.7 pg (27.0-33.0); Mean Corpuscular Volume 92.2 fL (80.0-98.0); NRBC Abs Auto 0.000 X10*3/uL (0.0-0.012); NRBC Pct Auto 0.0 /100WBC (0.0-0.2); Platelet Count 156 X10*3/uL (160-400); Red Blood Count 4.35 X10*6/uL (4.60-5.80); White Blood Count 5.9 X10*3/uL (4.8-10.8)
[2024-09-18 11:45] LABS: Alanine Aminotransferase 24 U/L (0-40); Albumin Level 3.9 g/dL (3.5-5.0); Alkaline Phosphatase 61 U/L (39-117); Anion Gap 11 (12-20); Aspartate Amino Transferase 17 U/L (5-37); Blood Urea Nitrogen 12 mg/dL (9-16); Calcium 9.2 mg/dL (8.4-10.2); Carbon Dioxide 27 mmol/L (22-29); Chloride 107 mmol/L (96-108); Creatinine Clr Calc Pharmacy 87.6; Estimated Glomerular Filt Rate > 60; Potassium 4.9 mmol/L (3.3-5.1); Sodium 140 mmol/L (135-145); Total Protein 6.3 g/dL (6.5-8.0)
[2024-09-18 11:53] LABS: Resp Syncy Virus RNA Qual PCR NEGATIVE (Negative); SARS COV2 PCR INHOUSE NEGATIVE (Negative)
[2024-09-18 11:55] LABS: Troponin-I High Sensitivity < 2.7 ng/L (<3.5-35.0)
--- NOTE | 2024-09-18 12:07 | MHC.EDTECH ---
Ekg done 72 minutes ago. Per P.A. patient don't need a repeat
--- OUTSIDE RECORDS SUMMARY | 2024-09-18 12:26 | XMS_ITS | Patient Health Record ---
Author Organization [facility] Address [address] [place] [address] Care Team Providers Care Cooky Packer Name Role Phone GUILLERMO RICHTER Primary Care Provider Cachorro Conway Jr Unavailable [phone] Reason For Referral No Information Medications Medication [...] [facility] [address] [place] [address] [phone] [id number] STEVEN OLIVEIRA Self - patient is the insured Medical (General) History Medical History History ICD Code elevated Cholesterol colonoscopy 03/13/2003 Denies ND,DM,CVA,Lung disease,renal dise ase polymyalgia rheumatica arthritis Surgical History Surgery Date(Month/Year) left knee replacement 2008 right knee replacement 2007 carpal tunnel release
--- OUTSIDE RECORDS SUMMARY | 2024-09-18 12:26 | XMS_ITS | Patient Health Record ---
[facility] Address [address] [facility] [place] [address] Care Team Providers Care Public Health Assistant Name Role Phone Jas Stone Primary Care Provider Unav Bryanna Chavarria Unavailable [phone] Barrington Cramre Unavailable [phone] Tono Skinner Unavailable [phone] Allergies Allergen (clinical drug ingredient) Drug/Non Drug [...] Problem Acquired hammer toe of right foot (5440321302547679 ) Other hammer toe(s) (acquired), right foot (M20.41) Active confirmed Problem Acquired hammer toe of left foot (1562319740315083 ) Other hammer toe(s) (acquired), left foot (M20.42) Active confirmed Problem Polyneuropathy due to type 2 diabetes mellitus (592161674) Type 2 diabetes mellitus with diabetic polyneuropathy (E11.42) Active confirmed Vital Signs Blood pressure diastolic 75 mm Hg 07/25/2024 Height 5ft9in in 07/25/2024 Blood pressure systolic 120 mm Hg 07/25/2024 Weight 262 lbs 07/25/2024 BMI 38.69 kg/m2 07/25/2024 Procedures Procedure Date Ordered Date Performed Result Body Sit e 85549-JSHPGLJ SKIN/TISSUE 10/24/2023 N/A 66902-XCDHHFJ SKIN/TISSUE 11/02/2023 N/A 09340-OTKYGXK SKIN/TISSUE 02/04/2024 N/A 18240-KIPCYQM SKIN/TISSUE 02/11/2024 N/A 28738 - Tenotomy, open flexor 02/11/2024 N/A 73068-VZCXZSX SKIN/TISSUE 02/20/2024 N/A 98536-FSNBDDL SKIN/TISSUE 03/10/2024 N/A 34228-AOGWHNI SKIN/TISSUE 03/17/2024 N/A 54604-YROREBE SKIN/TISSUE 03/26/2024 N/A 19612-YZSZGKV NAIL, 1-5 07/25/2024 N/A 38370-ENLQ SKIN LESIONS, OVER 4 07/25/2024 N/A S7348-ZGLUFWUH DYSTROPHIC NAILS ANY # 07/25/2024 N/A Encounters Encounter Location Date Provider Diagnosis [address] [address] 10/24/2023 Barrington Cramer Skin disease L98.9 ; 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 ; Cellulitis of left lower limb L03.116 ; Dry gangrene I96 and Type 2 diabetes mellitus with diabetic polyneuropathy E11.[address] [address] 11/02/2023 Tono Morinunier Skin ulcer of toe of left foot with fat layer exposed L97.522 ; Cellulitis of toe of left foot L03.032 and Type 2 diabetes mellitus with diabetic polyneuropathy E11.[address] [address] 11/07/2023 Barrington Cramer Skin disease L98.9 ; 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 ; Cellulitis of left lower limb L03.116 ; Dry gangrene I96 and Type 2 diabetes mellitus with diabetic polyneuropathy E11.[address] [address] 02/04/2024 Bryanna Garcia Skin ulcer of toe of left foot with fat layer exposed L97.522 ; Hammertoe of left foot M20.42 ; Type 2 diabetes mellitus with diabetic polyneuropathy E11.42 ; History of amputation Z89.9 and Peripheral vascular disease of extremity I73.[address] [address] 02/11/2024 Bryanna Nolascoaker Hammer toe of left foot M20.42 ; Skin ulcer of toe of left foot with fat layer exposed L97.522 ; Type 2 diabetes mellitus with diabetic polyneuropathy E11.42 ; History of amputation Z89.9 and Peripheral vascular disease of extremity I73.[address] [address] 02/20/2024 Bryanna Garcia Hammer toe of left foot M20.42 ; Skin ulcer of toe of left foot with fat layer exposed L97.522 ; Type 2 diabetes mellitus with diabetic polyneuropathy E11.42 ; History of amputation Z89.9 ; Peripheral vascular disease of extremity I73.9 and Subacute osteomyelitis of left foot M86.[address] [address] 03/10/2024 Bryanna Garcia Skin ulcer of toe of left foot with fat layer exposed L97.522 ; Type 2 diabetes mellitus with diabetic polyneuropathy E11.42 ; History of amputation Z89.9 ; Peripheral vascular disease of extremity I73.9 and Subacute osteomyelitis of left foot M86.[address] [address] 03/17/2024 Bryanna Garcia Skin ulcer of toe of left foot with fat layer exposed L97.522 ; Type 2 diabetes mellitus with diabetic polyneuropathy E11.42 ; History of amputation Z89.9 ; Peripheral vascular disease of extremity I73.9 and Subacute osteomyelitis of left foot M86.[address] [address] 03/26/2024 Bryanna Garcia Skin ulcer of toe of left foot with fat layer exposed L97.522 ; Type 2 diabetes mellitus with diabetic polyneuropathy E11.42 ; History of amputation Z89.9 ; Peripheral vascular disease of extremity I73.9 and Subacute osteomyelitis of left foot M86.[address] [address] 04/22/2024 Tono Susanne Skin ulcer of toe of left foot with fat layer exposed L97.522 ; Type 2 diabetes mellitus with diabetic polyneuropathy E11.42 ; History of amputation Z89.9 and Peripheral vascular disease of extremity I73.[address] [address] 07/25/2024 Tono Susanne Type 2 diabetes mellitus with diabetic polyneuropathy E11.42 ; Tinea unguium B35.1 ; Other hammer toe(s) (acquired), right foot M20.41 and Other hammer toe(s) (acquired), left foot M20.[address] [address] 10/24/2023 Barrington Cramer [facility] [place] [address] [place] [address] 10/24/2023 [facility] [address] [address] 11/02/2023 Tono Skinner [facility] [place] [address] [place] [address] 11/07/2023 [facility] [address] [address] 11/13/2023 [facility] [address] [address] 02/04/2024 Bryanna Garcia [facility] [address] 02/21/2024 Bryanna Garcia Assessments Encounter Date Diagnosis [...] X ray : Foot, right 3V 12/13/2021 11319-JRRRXYU NAIL, 1-5 07/25/2024 85252-IGENLJC SKIN/TISSUE 02/11/2024 95153-KEHSHRW SKIN/TISSUE 02/20/2024 03260-YKSCSLB SKIN/TISSUE 03/10/2024 54138-CDJIOQA SKIN/TISSUE 03/17/2024 14240-MSMGPYP SKIN/TISSUE 03/26/2024 11341-XVMAYSQ SKIN/TISSUE 02/04/2024 12156-JPKUBJO SKIN/TISSUE 10/24/2023 78997-TRYZVJE SKIN/TISSUE 11/02/2023 51382-KNJP SKIN LESIONS, OVER 4 07/26/19 G2816-DVXITXBU DYSTROPHIC NAILS ANY # X ray : Ankle, right 3V 12/13/2021 86459 - Tenotomy, open flexor 02/11/2024 Next Appt Details Provider Name:Bryanna Peace sosa, 10/27/2024 03:30:00 PM, [address] [place], [address], Insurance Providers Payer Name Payer Address Payer Phone Subscriber Number Group Number Insured Name Patient Relationship to Insured Coverage Start Date Coverage End Date [facility] 65 Medicare Preferred [address] [place] [address] [id number] Lino Nayak Self - patient is the [...] angiogram spinal stenosis surgery 2019 bilateral TKR [id number] Stent Hospitalization History Reason Date(Month/Year) Capsasin treatment x30 minutes/4x year 1 st dosw 12/04/2021 Stent Right leg 09/13/2021 Stent Left leg 08/09/2021 Ultrasound Bilateral legs, angiogram Lef t leg 06/30/2021 Injection, [facility] 07/06/2021 MRI Left Foot 03/10/2021 Xray left Foot 03/04/2021
--- OUTSIDE RECORDS SUMMARY | 2024-09-18 12:26 | XMS_ITS | Clinical Summary ---
Author Organization [facility] Address [address] [place] [address] Care Team Providers Care Geriatric Case Manager Name Role Phone Jas Casarez Moy Primary Care Provider [phone] Allergies Active Allergy Reactions Criticality Noted Date Comments Methadone Vomiting 08/02/2021 Nsaids (Non-Steroidal Anti-I nflammatory Drug) Unknown 08/02/2021 Medications cholecalcifero l (VITAMIN D3) 2,000 unit capsule Take 2,000 Units by mouth once a day. 2 Active venlafaxine XR (EFFEXOR XR) 150 mg capsule Take 150 mg by mouth once a day. 2 Active aspirin 81 mg EC tablet Take 81 mg by mouth once a day. 2 Active pravastatin (PRAVACHOL) 40 mg tablet Take 40 mg by mouth once a day. 2 Active acetaminophen- codeine (TYLENOL #3) 300-30 mg tablet Take 1 [...] times a day as needed. 2 Active EPINEPHrine (EPIPEN) 0.3 mg/0.3 mL injection syringe Inject 0.3 mg into the outer thigh muscle as directed as needed for anaphylaxis. 2 Active oxybutynin XL (DITROPAN XL) 10 mg tablet Take 10 mg by mouth once a day. 3 Active diclofenac (VOLTAREN) 1% gel Apply topically to the affected area 4 times a day as needed (pain). Active predniSONE (DELTASONE) 10 mg tablet Take 10 mg by mouth once a day. Active naloxone HCl (NARCAN) 4 mg/actuation nasal [...] mg under the skin per week. Active Eliquis 5 mg tablet SMARTSI Tablet(s) By Mouth Twice Daily 4 Active dilTIAZem CD (CARDIZEM CD) 120 mg 24 hr capsule SMARTSI Capsule(s) By Mouth Daily 4 Active amiodarone (PACERONE) 200 mg tablet SMARTSI Tablet(s) By Mouth Daily 5 Active folic acid (FOLVITE) 1 mg tablet Take 3,000 mcg by mouth once a day. 2 025 Discontin ued(Don't Send CancelRx) metoprolol succinate XL (TOPROL XL) 50 mg tablet Take 25 mg by mouth once a day. 2 025 Discontin ued(Don't Send CancelRx) ketoconazole (NIZORAL) 2% shampoo Apply topically to the affected area 2 times a week. 2 025 Discontin ued(Don't Send CancelRx) bethanechol (URECHOLINE) 50 mg tablet Take 50 mg by mouth nightly. 025 Discontin ued(Don't Send CancelRx) clopidogreL (PLAVIX) 75 mg tabletIndicati ons:peripheral stent Take 1 tablet (75 mg total) by mouth once a day Indications: peripheral stent. 30 tablet 2 4 025 Discontin ued(Don't Send CancelRx) doxycycline hyclate (VIBRAMYCIN) 100 mg capsule Take 100 mg by mouth 2 times a day. For 7 days Discontin ued(Don't Send CancelRx) alpha lipoic acid 600 mg capsule Take 600 mg by mouth once a day. Discontin ued(Don't Send CancelRx) sarilumab (Kevzara) 200 mg/1.14 mL pen injector Inject 200 mg under the skin every 14 days. Discontin ued(Don't Send CancelRx) HYDROmorphone (DILAUDID) 2 mg tablet Take 1 mg by mouth every 6 hours as needed for pain. Discontin ued(Don't Send CancelRx) methotrexate (TREXALL) 2.5 mg tablet Take 6 tablets (15 mg total) by mouth once a week. You may restart taking this on 12/05/23 4 Discontin ued(Don't Send CancelRx) docusate sodium (COLACE) 100 mg capsule Take 1 capsule (100 mg total) by mouth 2 times a day for 7 days. 14 capsule 4 025 Discontin ued(Don't Send CancelRx) senna (SENOKOT) 8.6 mg tablet Take 1 tablet (8.6 mg total) by mouth 2 times a day for 7 days. 14 tablet 4 Discontin ued(Don't Send CancelRx) Active Problems Problem Noted Date Diagnosed Date S/P insertion of iliac artery stent 09/08/2024 Diabetes 1.5, managed as type 2 09/08/2024 PMR (polymyalgia rheumatica) 09/08/2024 Polyneuropathy due to type 2 diabetes mellitus 0 09/08/2024 Primary localized osteoarthrosis of ankle and fo ot 09/08/2024 Aftercare following surgery of the circulatory s [...] Date Diagnosed Date Resolved Date Atherosclerosis of [place] ar teries of extremities with gangrene, left leg 11/21/20232 Encounters Date Type Department Care Team Description 09/08/2024 11:30 AM EDT Follow-Up [facility] Vascular Surgery [address] [place] [id number] Leather Cartridge Belt Maker: Rosanna Lau, THERESE S/P insertion of iliac artery stent (Primary Dx); Atherosclerosis of artery of extremity with intermittent claudication (HCC); Diabetes 1.5, managed as type 2 (HCC) 09/08/2024 8:12 AM EDT - 09/08/2024 11:59 PM EDT Hospital Encounter [facility] Vascular Lab [address] [place] [address] Aftercare following surgery of the circulatory system Discharge Disposition: Home or Self Care (01) 09/08/2024 8:12 AM EDT - 09/08/2024 11:59 PM EDT Hospital Encounter [facility] Vascular Lab [address] [place] [id number] Aftercare following surgery of the circulatory system Discharge Disposition: Home or Self Care () 09/08/2024 8:12 AM EDT - 09/08/2024 11:59 PM EDT Hospital Encounter [facility] Vascular Lab [address] [place] [address] Aftercare following surgery of the circulatory system Discharge Disposition: Home or Self Care () from Last 3 Months Immunizations Immunization Administration Dates Next Due Influenza, Trivalent, Adjuvanted, PF (Deferred: Patient Refused - defer outpatient) Family History Medical History Relation Name Comments Heart disease Father angina Stroke Mother Relation Name Status Comments Father Mother Social History Tobacco Use Types Packs/Day Years Used Date Smoking Tobacco: Former Cigarettes 1.5 25 1 97 - 1998 Smokeless Tobacco: Former Snuff, Chew Quit: 07/03/2021 Tobacco Cessation:Counseling Given: Not Answered Alcohol Use Standard Drinks/Week Comments Not Currently 0 (1 standard drink = 0.6 oz pure alcohol) none for last month and a half, previously drank 9 drinks per week [facility] Utilities Answer Date Recorded In the past 12 months has th e electric, gas, oil, or water company [...] Sign Reading Time Taken Comments Blood Pressure 154/77 09/08/2024 10:29 AM EDT Pulse 59 09/08/2024 10:29 AM EDT Temperature 36.6 C (97.9 F) 09/08/2024 10:29 AM EDT Respiratory Rate 17 09/08/2024 10:29 AM EDT Oxygen Saturation 97% 09/08/2024 10:29 AM EDT Inhaled Oxygen Concentration - - Weight 113.4 kg (250 lb) 09/08/2024 10:29 AM EDT Height 175.3 cm (5' 9 ) 03/11/2024 1:11 PM EST Body Mass Index 36.92 03/11/2024 1:11 PM EST Plan of Treatment Upcoming Encounters Date Type Department Care Team (Late st Contact Info) Description 09/08/2025 1:00 PM EDT Appointment [facility] Vascular Lab [address] [place] [address] 09/08/2025 1:45 PM EDT Appointment [facility] Vascular Lab [address] [place] [address] 09/08/2025 2:30 PM EDT Appointment [facility] Vascular Lab [address] [place] [address] 09/08/2025 3:40 PM EDT Follow-Up [facility] Building Vascular Surgery [address] [place] [address] Leather Cartridge Belt Maker: Denton Zuniga MD [address] [place] [address] Health Maintenance Due Date Last Done Comments Cologuard 1953 Colon Cancer Screening 1953 Colonoscopy 1953 FOBT / Fit Test 1953 Hepatitis C Screening 1953 Sigmoidoscopy 1953 Ophthalmology Exam 1963 Urine Microalbumin 1963 Zoster Vaccines (1 of 2) 2003 DTaP,Tdap,and Td Vaccines (1 - Tdap) 11/28/2014 11/27/2014 Abdominal Aortic Aneurysm (AAA) Screening 2018 COVID-19 Vaccine (3 - season) 2023 10/27/2020, 10/06/2020 Alcohol/Substance Use Screening 03/05/2024 Depression Screening and Follow-Up 03/05/2024 Health Care Proxy Review 03/05/2024 Social Drivers of Health Annual Screening 03/05/2024 Hemoglobin A1C 05/21/2024 11/22/2023 Influenza Vaccine (#1) 2024 , 12/22/2018, 12/12/2017, Additional history exists Basic Metabolic Panel 11/22/2024 11/23/2023 , 11/22/2023, 11/21/2023, Additional history exists RSV Vaccine (60+ years old and patients) (1 - 1-dose 75+ series) 2028 Pneumococcal Vaccine: 50+ Years Completed 06/25/2024, 12/22/2018 Hepatitis B Vaccines Aged Out No long er eligible based on patient's age to complete this topic Medical Devices Implanted Type Area Anesthesiologist/Physician Device Identifier Shelf Expiration Date Model / Serial / Lot System Closure And Repair Suture-Mediate d Perclose Prostyle - [id number] Implanted:Qty: 1 on 08/09/2021 by Denton Palacios MD at [facility] [place] Implant Left: Leg [employer] 01/02/2023 [id number] / / System Closure And Repair Suture-Mediate d Perclose Prostyle - S0 - [id number] Implanted:Qty: 1 on 09/13/2021 by Denton Palacios MD at [facility] [place] Implant Left: Leg [employer] [id number] 07/03/2023 93035-48 / 0 / [id number] System Closure And Repair Suture-Mediate d Perclose Prostyle - S0 - [id number] Implanted:Qty: 1 on 11/13/2023 by Denton Palacios MD at [facility] [place] Implant N/A: Groin [employer] [id number] 09/01/2025 65929-10 / 0 / [id number] Patch Pericardium Bovine .[id number] Photofix - [id number] Implanted:Qty: 1 on 11/21/2023 by Denton Palacios MD at [facility] [place] [place] Implant Left: Arterial [employer] 06/08/2025 PFP0.8X8 / / [id number] Patch Pericardium Bovine .[id number] Photofix - [id number] Implanted:Qty: 1 on 11/21/2023 by Denton Palacios MD at [facility] [place] [place] Implant Left: Arterial [employer] 05/11/2025 PFP0.8X8 / / [id number] Stent System Vascular [id number] [employer] 3d - S0 - [id number] Implanted:Qty: 1 on 08/09/2021 by Denton Palacios MD at [facility] [place] [place] Stent Left: Leg [facility] [id number] 10/21/2022 [id number] -[id number] 1 / 0 / [id number] Stent System Vascular [id number] Spoqa 3d - S0 - [id number] Implanted:Qty: 1 on 09/13/2021 by Denton Palacios MD at [facility] [place] [place] Stent Right: Leg [facility] MED[facility] [id number] 02/09/2023 [id number] -1 0 / 0 / [id number] Stent Icast Covered [id number] - [id number] - [id number] Implanted:Qty: 1 on 11/13/2023 by Denton Palacios MD at [facility] [place] [place] Stent Left: Arterial CreaWor [facility] [id number] 12/13/2025 [id number] / [id number] / Procedures * Due to [place] state law, this organization might not be sharing negative HIV tests. Procedure Name Priority Date/Time Associated Diagnosis Comments ILIAC ARTERY DUPLEX, LEFT Routine 09/08/2024 10:17 AM EDT Aftercare following surgery of the circulatory system TOES PRESSURES AND WAVEFORM ANALYSIS Routine 09/08/2024 10:12 AM EDT Aftercare following surgery of the circulatory system LOWER LIMB ARTERIAL DUPLEX, COMPLETE BILATERAL Routine 09/08/2024 9:56 AM EDT Aftercare following surgery of the circulatory system BASIC METABOLIC PANEL Routine 11/23/2023 6:10 AM EDT HEMOGLOBIN A1C Routine 11/22/2023 2:23 AM EDT from Last 3 Months or Most Recently Relevant to Health Maintenance Results * Due to [place] state law, this organization might not be sharing negative HIV tests. * ILIAC ARTERY DUPLEX, LEFT (09/08/2024 10:17 AM EDT) PSV External Iliac Distal Arterial Left 119 cm/s EDV External Iliac Distal Arterial Left 0 cm/s PSV Abdominal Aorta Infra-renal Distal Arterial 48.6 cm/s EDV Abdominal Aorta Infra-renal Distal Arterial 0.426 cm/s PSV External Iliac Proximal Arterial Left 115 cm/s EDV External Iliac Proximal Arterial Left 0 cm/s PSV Common Iliac Proximal Arterial Left 127.00 cm/s EDV Common Iliac Proximal Arterial Left 0.00 cm/s PSV Common Iliac Distal Arterial Left 113.00 cm/s EDV Common Iliac Distal Arterial Left 0.00 cm/s Anatomical Region Laterality Modality Iliac arterial system Ultrasound Narrative 09/10/2024 6:19 PM EDT The left common iliac artery and external iliac artery appeared patent with no evidence of hemodynamically significant stenosis. Unable to visualize left common iliac artery stent shell however, vessel appeared patent. This was a technically limited test due to body habitus and bowel gas. Pt not NPO. 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 L SFA stent (2021), R SFA stent?, L ASIM stent (2023) us Raman Lin NP CV VASCULAR PROCEDURES Final Re sult * Toes Pressures and Waveform Analysis (09/08/2024 10:12 AM EDT) Pressure Brachial Right 150 mmHg Pressure Toe 1 Right 72 mmHg Index Toe 1 Right 0.48 Pressure Brachial Left 138 mmHg Pressure 2 Toe Left 78 mmHg Index Toe 2 Left 0.52 Pressure Brachial all 150.00 mmHg Anatomical Region Laterality Modality Vascular Ultrasound Narrative 09/10/2024 7:15 PM EDT The right toe/brachial index and absolute toe pressure were consistent with peripheral arterial disease when correlated with relevant clinical symptoms. The left toe/brachial index and absolute toe pressure were consistent with peripheral arterial disease when correlated with relevant clinical symptoms (measured in 2nd toe due to 1st toe amputation). When compared to the previous study dated 03/11/2024, the left 2nd toe/brachial index has increased from 0.36 to 0.52. 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 L SFA stent (2021), R SFA stent?, L ASIM stent (2023) us Raman Lin NP CV VASCULAR PROCEDURES Final Re sult * LOWER LIMB ARTERIAL DUPLEX, COMPLETE BILATERAL (09/08/2024 9:56 AM EDT) PSV Popliteal Distal Arterial Left 78.9 cm/s EDV Popliteal Distal Arterial Left 0 cm/s PSV Popliteal Proximal Arterial Left 53.4 cm/s EDV Popliteal Proximal Arterial Left 0 cm/s PSV Superficial Femoral Distal Arterial Left 81.4 cm/s EDV Superficial Femoral Distal Arterial Left 0 cm/s PSV Popliteal Distal Arterial Right 45.7 cm/s EDV Popliteal Distal Arterial Right 0 cm/s PSV Popliteal Proximal Arterial Right 50 cm/s EDV Popliteal Proximal Arterial Right 0 cm/s PSV Superficial Femoral Distal Arterial Right 89.4 cm/s EDV Superficial Femoral Distal Arterial Right 0 cm/s EDV Superficial Femoral Middle Arterial Left 0 cm/s PSV Superficial Femoral Middle Arterial Right 86.4 cm/s EDV Superficial Femoral Middle Arterial Right 0 cm/s PSV Profunda Femoris Proximal Arterial Left 118 cm/s EDV Profunda Femoris Proximal Arterial Left 0 cm/s PSV Profunda Femoris Proximal Arterial Right 184 cm/s EDV Profunda Femoris Proximal Arterial Right 0 cm/s PSV Popliteal Middle Arterial Left 54 cm/s EDV Popliteal Middle Arterial Left 0 cm/s PSV Popliteal Middle Arterial Right 43 cm/s EDV Popliteal Middle Arterial Right 0 cm/s PSV Common Femoral Distal Arterial Left 93.2 cm/s EDV Common Femoral Distal Arterial Left 0 cm/s PSV Common Femoral Distal Arterial Right 163 cm/s EDV Common Femoral Distal Arterial Right 0 cm/s PSV Tib/Per Trunk Arterial Left 85.7 cm/s EDV DIagram Tib/Per Trunk Arterial Left 0 cm/s PSV Tib/Per Trunk Arterial Right 55.8 cm/s EDV Tib/Per Trunk Arterial Right 0 cm/s PSV Superficial Femoral Proximal Arterial Left 124 cm/s EDV Superficial Femoral Proximal Arterial Left 0 cm/s PSV Superficial Femoral Proximal Arterial Right 244 cm/s EDV Superficial Femoral Proximal Arterial Right 0 cm/s PSV Common Femoral Proximal Arterial Left 82 cm/s EDV Common Femoral Proximal Arterial Left 0 cm/s PSV Common Femoral Proximal Arterial Right 121 cm/s EDV Common Femoral Proximal Arterial Right 0 cm/s PSV Superficial Femoral Middle Arterial Left 120.00 cm/s Anatomical Region Laterality Modality Lower Extremities Ultrasound Narrative 09/10/2024 6:21 PM EDT The right lower extremity duplex scan was consistent with <50% stenosis of the proximal superficial femoral artery. The right common femoral artery, proximal profunda femoris artery, mid and distal superficial femoral artery, and popliteal artery were widely patent with no evidence of hemodynamically significant stenosis. Diffuse calcific plaque was seen throughout the arteries. Unable to rule out more significant stenosis. The left common femoral artery, proximal profunda femoris artery, superficial femoral artery, and popliteal artery were widely patent with no evidence of hemodynamically significant stenosis. Diffuse calcific plaque was seen throughout the arteries. Unable to rule out more significant stenosis. The bilateral superficial femoral artery stents were not appreciated due to technical limitations. When compared to the previous study dated 03/11/2024, the <50% stenosis of the right proximal superficial femoral artery is a new finding. This was a technically limited test due to calcification with acoustic shadowing. Unable to rule out more significant stenosis. 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 L SFA stent (2021), R SFA stent?, L ASIM stent (2023) Lower Arterial - Right (Duplex) Right Common Femoral Artery, Proximal: patent Right Common Femoral Artery, Distal: patent Right Profunda Femoral Artery, Proximal: patent Right Superficial Femoral Artery, Proximal: ; 1-49% stenosis Right Superficial Femoral Artery, Mid: patent Right Superficial Femoral Artery, Distal: patent Right Popliteal, Proximal: patent Right Popliteal, Mid: patent Right Popliteal, Distal: patent Right Tibioperoneal Trunk: patent Lower Arterial - Left (Duplex) Left Common Femoral Artery, Proximal: patent Left Common Femoral Artery, Distal: patent Left Profunda Femoral Artery, Proximal: patent Left Superficial Femoral Artery, Proximal: patent Left Superficial Femoral Artery, Mid: patent Left Superficial Femoral Artery, Distal: patent Left Popliteal Artery, Proximal: patent Left Popliteal Artery, Mid: patent Left Popliteal Artery, Distal: patent Left Tibioperoneal Trunk: patent Raman Lin NP CV VASCULAR PROCEDURES Final Re sult * (ABNORMAL) Basic Metabolic Panel (11/23/2023 6:10 AM EDT) NA 138 135 - 145 mmol/L 11/23/2023 6:55 AM EDT [facility] K 3.9 3.5 - 5.3 mmol/L 11/23/2023 6:55 AM EDT [facility] Cl 105 98 - 107 mmol/L 11/23/2023 6:55 AM EDT [facility] CO2 24 24 - 32 mmol/L 11/23/2023 6:55 AM EDT [facility] BUN 10 7 - 23 mg/dL 11/23/2023 6:55 AM EDT [facility] [employer] [employer] [facility] Creatinine 0.70 0.60 - 1.30 mg/dL 11/23/2023 6:55 AM EDT [facility] [employer] Glucose 118(H) 65 - 99 mg/dL 11/23/2023 6:55 AM EDT [facility] [employer] Calcium 8.1(L) 8.6 - 10.5 mg/dL 11/23/2023 6:55 AM EDT [facility] Anion Gap 9 5 - 15 11/23/2023 6:55 AM EDT [employer] eGFR >90 >=60 mL/min/1. 73m2 11/23/2023 6:55 AM EDT [facility] Comment:The estimated glomer ular filtration rate (eGFR) is calculated using a new formula developed by the NKF-ASN task force to eliminate race-based correction factors. The new formula uses serum/plasma creatinine, age, and gender to determine eGFR. A value below 60mls/min might indicate kidney disease and will be flagged. For additional information, see Jennings et al, Am J Kidney Dis. 2021;79(2):268- 288, A Unifying Approach for GFR estimation: Recommendations of the NKF-ASN Task Force on Reassessing the Inclusion of Race in Diagnosing Kidney Disease . Blood Structure of peripheral vein / Unknown Venipuncture / Unknown 11/23/2023 6:10 AM EDT 11/23/2023 6:21 AM EDT us Denton Palacios MD LAB BLOOD ORDERABLES Mahnaz sutton Result [facility] [employer] ([employer]) CLINICAL PATHOLOGY LABORATORY [address] [place] [address], * (ABNORMAL) Hemoglobin A1c (11/22/2023 2:23 AM EDT) Hemoglobin A1C 6.2(H) <5.7 % of total Hgb 11/22/2023 10:11 AM EDT [employer] [employer] [facility] Comment: For someone without known diabetes, a hemoglobin A1c value between 5.7% and 6.4% is consistent with prediabetes and should be confirmed with a follow-up test. For someone with known diabetes, a value <7% indicates that their diabetes is well controlled. A1c targets should be individualized based on duration of diabetes, age, comorbid conditions, and other considerations. This assay result is consistent with an increased risk of diabetes. Currently, no consensus exists regarding use of hemoglobin A1c for diagnosis of diabetes for children. eAG (MG/DL) 131 mg/dL 11/22/2023 10:11 AM EDT [employer] [facility] eAG (MMOL/L) 7.3 mmol/L 11/22/2023 10:11 AM EDT [employer] [employer] [facility] Comment: This test was performed on the Daniella elmer c503 platform. Effective 05/07/23, a change in test platforms from the [employer] to the Daniella elmer c503 may have shifted HbA1c results compared to historical results. Based on laboratory validation testing conducted at [facility], the Daniella platform relative to the [employer] platform had an average increase in HbA1c value of < or = 0.3%. This difference is within accepted variability established by the National Glycohemoglobin Standardization Program. Note that not all individuals will have had a shift in their results and direct comparisons between historical and current results for testing conducted on different platforms is not recommended. Blood Arterial line submitted as specimen / Unknown Arterial Line / Unknown 11/22/2023 2:23 AM EDT 11/22/2023 2:43 AM EDT [facility] 11/22/2023 10:11 AM EDT [employer] Received Date:[id number] us Denton Palacios MD LAB BLOOD ORDERABLES Mahnaz sutton Result [facility] [place] [address] [facility] [address], [place] [address], [place] [phone] [employer] [facility] [address] [facility] [address], [place] [address], [place] [phone] from Last 3 Months or Most Recently Relevant to Health Maintenance Insurance [employer] MCR REPLACE PPO Advance Directives [...] 8:48 AM 09/06/2021 4:36 PM Care Teams Geriatric Case Manager Relationship Specialty Start Date End Date Jas Casarez [address] [place] [address] PCP - General 07/19/21
[2024-09-18 13:03] VITALS: BP 130/70; PULSE 68; RESP 20; TEMP 36.4; O2SAT 95
[2024-09-18 13:35] LABS: B Type Natriuretic Peptide 13 pg/mL (<100)
--- NOTE | 2024-09-18 15:38 | PM.CNCAR ---
History of Present Illness History of Present Illness Date of Service: 09/18/24 Chief complaint: rapid heart rate, afib sob Narrative: Patient was seen at 12:30pm. This is a cardiology consultation regarding bradycardia. Patient's had called the clinic stating that he was not feeling good and she thought the heart rate was in the 40s and that it was too low. Hence we asked her to come to the emergency room. However, after referral here, heart rate has been rather in the normal range in the 50s-60s extra. Patient states that he just does not feel good overall. However, he cannot pinpoint to anything specific. Some shortness of breath type sensation but he seems quite comfortable. No clear anginal-type chest pains. Many comorbidities as listed below. Review of Systems Review of Systems: Yes all other systems are reviewed and are negative Constitutional: Constitutional: Reports as per HPI and Reports no additional constitutional complaints Eyes: Eyes: Reports as per HPI and Denies no additional eye complaints ENT: Denies system reviewed and no additional complaints, except as documented and Reports as per HPI Cardiovascular: Cardiovascular: Reports as per HPI, Reports no additional cardiovascular complaints, Denies acrocyanosis, Denies cool extremities, Denies chest pain, Denies leg edema, Denies lightheadedness, Denies palpitations and Reports dyspnea Respiratory: Respiratory: Reports as per HPI, Denies no additional respiratory complaints and Reports dyspnea Gastrointestinal: Gastrointestinal: Reports as per HPI and Denies no additional gastrointestinal complaints Genitourinary: Genitourinary: Reports no additional male genitourinary complaints and Reports as per HPI Musculoskeletal: Musculoskeletal: Reports no additional musculoskeletal complaints and Reports as per HPI Integumentary/Breasts: Skin/Breast: Reports system reviewed and no additional complaints, except as docu Neurologic: Reports system reviewed and no additional complaints, except as documented and Reports as per HPI Psychiatric: Psychiatric: Reports no additional psychiatric complaints and Reports as per HPI Endocrine: Endocrine: Reports no additional endocrine complaints, Reports as per HPI and Denies palpitations Hematologic/Lymphatic: Hematologic/Lymphatic: Reports no additional hematologic/lymphatic complaints and Reports as per HPI Allergic/Immunologic: Allergic/Immunologic: Reports no additional allergic/immunologic complaints and Reports as per HPI FORMERLY [facility] Past Medical History Medical History Amputation of left great toe Cellulitis Dry gangrene Spinal cord stimulator status Polymyalgia rheumatica PAD (peripheral artery disease) Ascending aorta dilatation Sleep apnea Type 2 diabetes mellitus with peripheral neuropathy Diabetes mellitus due to underlying condition with diabetic neuropathy, without long-term current use of insulin Arterial insufficiency Iatrogenic Lula's disease Morbid obesity Atherosclerotic cardiovascular disease Diabetic neuropathy associated with type 2 diabetes mellitus Seronegative rheumatoid arthritis Obesity (BMI 30-39.9) Vitamin D deficiency Diabetes type 2, controlled Osteopenia Adrenal 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 Painful total knee replacement, right Family History Family History Father Angina pectoris Mother Stroke Surgical History Surgical History Status post amputation History of endarterectomy History of esophagogastroduodenoscopy (EGD) H/O colonoscopy Hx of coronary angiogram History of back surgery (~2017) History of knee replacement procedure of right knee History of knee replacement procedure of left knee Hx of cardiac cath Social History Social History Household Members: Spouse Housing: House Are you a primary child caregiver private home to a significant other at home: No Do you presently have visiting nurse or other home services: No Alcohol intake: former Year quit: 2023 Patient Tobacco Use Status: Former Tobacco user Years Smoked: 20 years ago Smoked in Last 30 Days: No e-Cigarette/Vaping Use: Never Used Second Hand Smoke Exposure: No Substance Use Type: Marijuana Advance Directives: Yes Advance Directives on File: Yes Advance Directives Date on File: 01/07/24 service: No Current occupational status: retired Cognitive needs: No Hearing needs: No Vision needs: No Meds Allergies Allergy/AdvReac Type Severity Reaction Status Date / Time NSAIDS (Non-Steroidal Allergy Severe Anaphylaxis Verified 09/18/24 10:40 Anti-Inflamma methadone Allergy Intermediate Vomiting Verified 09/18/24 10:40 Home Medications ?Medication ?Instructions ?Recorded ?Confirmed ?Last Taken ?Type amiodarone 200 mg tablet 200 mg PO ONCE 09/04/24 09/04/24 Unknown History Physical Exam Vital Signs: Vital Signs: Last Vital Signs Temp 97.6 F 09/18/24 13:03 Pulse 68 09/18/24 13:03 Resp 20 09/18/24 13:03 BP 130/70 09/18/24 13:03 Pulse Ox 95 09/18/24 13:03 O2 Del Method Room Air 09/18/24 13:03 BMI result Body Mass Index 36.9 Const: General: comfortable and no acute distress Orientation/consciousness: patient oriented x3 HEENT: Other: Unremarkable Head: Yes normal to inspection Neck: Neck: Yes normal visual inspection Chest: Chest palpation & inspection: normal inspection of the chest Resp: Auscultation: clear to auscultation bilaterally Cardio: Palpation: normal PMI Heart sounds: S1 normal heart sound present, S2 normal heart sound present, no gallops, no murmurs and no rubs GI: Palpation (GI): Soft to palpation Back/Spine/Pelvis: Other: unremarkable Skin: General skin exam: no rashes or lesions noted Neuro: General: patient oriented x3 Extrem: General: Yes normal to inspection Psych: Mental Status: mental status grossly normal Objective Labs and Meds 09/18/24 11:11 09/18/24 11:11 Lab results: Laboratory Results - last 24 hr 09/18/24 09/18/24 11:01 11:11 WBC 5.9 RBC 4.35 L Hgb 13.8 L Hct 40.1 L MCV 92.2 MCH 31.7 MCHC 34.4 RDW 13.8 Plt Count 156 L MPV 8.8 L Immature Gran % (Auto) 1.4 H Neut % (Auto) 66.4 Lymph % (Auto) 18.6 L [place] % (Auto) 9.7 Eos % (Auto) 3.6 Baso % (Auto) 0.3 Lymph # (Auto) 1.1 L [place] # (Auto) 0.6 Eos # (Auto) 0.2 Baso # (Auto) 0.0 Abs Immat Gran (auto) 0.08 H Absolute Neuts (auto) 3.9 Absolute Nucleated RBC 0.000 Nucleated RBC % (auto) 0.0 Sodium 140 Potassium 4.9 Chloride 107 Carbon Dioxide 27 Anion Gap 11 L BUN 12 Creatinine 0.96 Estim Creat Clear Calc 87.6 Estimated GFR > 60 Random Glucose 101 Calcium 9.2 Total Bilirubin 0.8 AST 17 ALT 24 Alkaline Phosphatase 61 Troponin I High Sens < 2.7 B-Natriuretic Peptide 13 Total Protein 6.3 L Albumin 3.9 Influenza Type A (PCR) NEGATIVE Influenza Type B (PCR) NEGATIVE RSV RNA Qual (PCR) NEGATIVE SARS-CoV-2 RNA (RT-PCR) NEGATIVE ECG Interpretation: EKG shows atrial fibrillation at 73/Min. Imaging Radiologist's impression: Impressions Chest X-Ray 09/18/24 11:12 IMPRESSION: No acute disease. Electronically signed by: Bennie Fulton MD 09/18/2024 12:17 PM EDT RP Assessment and Plan (1) PAF (paroxysmal atrial fibrillation): Status: Acute (2) Bradycardia: Status: Acute (3) Atherosclerotic cardiovascular disease: Status: Acute Plan On telemetry, it seems that there was evidence of atrial activity and hence thought it was sinus rhythm. However, the EKG looks like atrial fibrillation. Hence not clear if he is in and out of atrial fibrillation. On the Holter monitor, he had both sinus rhythm and atrial fibrillation. Atrial fibrillation burden was quite high at 39%. In the echocardiogram, LVEF 55%. Moderate aortic valve calcification. High sensitivity troponin was within range. Cardiac BNP is also normal. Overall, with regard to the question of bradycardia, do not see any evidence of the same. However, feels that the heart rate was indeed on the lower side at home. Hence we can hold off on the diltiazem and just continue the amiodarone. With regard to the atrial fibrillation itself, on telemetry it seems that he was probably in sinus rhythm as there was evidence of P-waves but EKG shows atrial fibrillation and hence he might be going in and out of it. There is a high burden on the Holter itself. The atrial fibrillation itself can make him short of breath. For the time being, continue the amiodarone. Suspect he will need referral to EP for consideration of atrial fibrillation ablation. We will get another Holter monitor and then we will follow-up. Discussed at length with and patient. They do plan to go to [place] for a few days and advised them to take it easy and not exert too much and avoid being alone. Also advised him to call immediately for any questions or other concerns. To seek emergency help as needed. We will arrange Holter monitor and follow up in clinic. Procedures Date of Service Date of Service: 09/18/24
== END 2024-09-18 13:21 | disposition home or self-care (01) ==
PROVIDERS: Physician Assistant Medical; Emergency Provider Emergency Medicine; PCP Nurse Practitioner Family
DX: R00.1 Bradycardia, unspecified (principal); I25.10 Atherosclerotic heart disease of native coronary artery without angina pectoris; I49.9 Cardiac arrhythmia, unspecified; R06.02 Shortness of breath; I48.91 Unspecified atrial fibrillation; Z03.818 Encounter for observation for suspected exposure to other biological agents ruled out; Z79.01 Long term (current) use of anticoagulants; Z79.899 Other long term (current) drug therapy; Z87.891 Personal history of nicotine dependence
CPT/HCPCS: 36415; 71046; 80053; 83880; 84484; 85025; 87637; 93005; 99285; 99291

== ENCOUNTER → 2024-09-18 10:49 | Outpatient (BNV) | payer MEDICARE, SELFPAY | PROVIDERS: PCP Nurse Practitioner Family; Visit Provider Radiology Diagnostic Radiology | DX: R06.02 Shortness of breath (principal) | CPT/HCPCS: 71046 ==

== ENCOUNTER → 2024-09-18 11:32 | Outpatient (BNV) | payer MEDICARE, SELFPAY | PROVIDERS: Emergency Provider Emergency Medicine; PCP Nurse Practitioner Family; Visit Provider Internal Medicine | DX: I48.0 Paroxysmal atrial fibrillation (principal); R00.1 Bradycardia, unspecified; I25.10 Atherosclerotic heart disease of native coronary artery without angina pectoris | CPT/HCPCS: 93010; 99285 ==

== ENCOUNTER → 2024-10-01 09:21 | Outpatient (REF) | payer MEDICARE, SELFPAY ==
--- OUTSIDE RECORDS SUMMARY | 2024-09-30 04:45 | XMS_ITS ---
Author Organization [facility] Address [address] [place] [address] Care Team Providers Care General Sales Manager Name Role Phone Jas Stone Primary Care Provider Unav Bryanna Chavarria Unavailable [phone] Allergies Allergen (clinical drug ingredient) Drug/Non Drug Allergy documented on EMR Reaction Allergy Type Onset Date Status Motrin anaphylaxis Drug Allergy Activ e ibuprofen Ibuprofen anaphylaxis Drug Allergy Activ e methadone Methadone vomiting Drug Allergy Active Non-steroidal anti-inflammatory agent (FN) NSAIDs anaphylaxis Drug Allergy Active REASON FOR VISIT At Risk Footcare, Open sore Medications Medication SIG (Take, Route, Frequency, Duration) Notes Start Date End Date Status Lidocaine-Prilocaine 2.5-2.5 % as directed Externally Not-Taking Hydrocortisone Not-T aking Ketoconazole Not-Dipesh ing Diclofenac Not-Takin g EPINEPHrine 0.3 MG/0.3ML as directed Injection Not-Taking Venlafaxine HCl 75 MG 1 tablet with food Orally Once a day; Duration: 30 day(s) Not-Taking Olopatadine HCl 0.1 % 1 drop into affected eye Ophthalmic Twice a day Not-Taking Ropinirole Hydrochloride Not-Taking Naloxone HCl 4 MG/0.1ML as directed Nasally Not-Taki ng Amoxicillin Not-Taki ng Keflex 500 MG 1 capsule Orally every 12 hrs; Duration: 10 day(s) 10/24/2023 Not-Taking Metoprolol Succinate ER Not-Taking Humira Pen 40 MG/0.4ML as directed Subcutaneous Not-Taking Cephalexin 500 MG 1 capsule Orally every 8 hrs; Duration: 10 days Not-Taking Plavix Not-Taking Extra Depth Diabetic Shoes with 3 Pair Custom heat-molded multi-density innersoles for 1 year Dx: 12/13/2021 Active Extra Depth Orthopedic Shoes (1 Pair) with Customized Heat Molded Multidensity Innersoles (3 Pair) as directed Dx: NIDDM/Polyneuropath y (E11.42), Hammertoe Foot Deformity (M20.41,M20.42), Preulcerative Skin Lesion(s) (L85.1 07/25/2024 Active Custom Orthotics as directed A ctive Methotrexate 2.5 MG as directed Orally Not-Taking Magnesium 400 MG as directed Orally Not-Taking metFORMIN HCl ER 500 MG 1 tablet with evening meal Orally twice a day Active Prednisone 10mg Active Pravastatin Sodium 40 MG 1 tablet Orally Once a day; Duration: 30 day(s) Active Vitamin D Active Tamsulosin HCl 0.4 MG 1 capsule Orally Once a day; Duration: 30 day(s) Active Acetaminophen-Codeine 300-30 MG 1 tablet as needed Orally every 6 hrs Active Aspirin 81 MG 1 tablet Orally Once a day; Duration: 30 day(s) Active EpiPen Active Effexor Active Folic Acid 1 MG 1 tablet Orally Once a day; Duration: 30 day(s) Not-Taking Cardizem Not-Taking Clindamycin HCl 3 capsules 3 times a day for 14 days Active Amiodarone HCl 200 MG 1 tablet Orally Once a day Active Eliquis Active Social History Tobacco Use: Social History Observation Description Date Details (start date - stop date) Never Smoker NA - NA Tobacco use other than smoking: Question Answer Notes Are you an other tobacco user? No Tobacco Control (Standard) Question Answer Notes Tobacco use: Nonsmoker Additional Findings: Tobacco non-user Current no nsmoker AUDIT-C (Standard) Question Answer Notes Did you have a drink containing alcohol in the p ast year? 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 confirmed Response to treatment Nonapplicable Vital Signs Height 5ft 9in in 09/30/2024 Weight 248 lbs 09/30/2024 BMI 36.62 kg/m2 09/30/2024 Blood pressure systolic 120 mm Hg 10/01/19 25 Blood pressure diastolic 75 mm Hg 025 Procedures Procedure Date Ordered Date Performed Result Body Sit e 48958-[id number] SKIN/TISSUE 09/30/2024 N/A Encounters Encounter Location Date Provider Diagnosis [facility] [address] [place] [address] 09/30/2024 Bryanna Garcia Type 2 diabetes mellitus with diabetic polyneuropathy E11.42 ; Tinea unguium B35.1 and Neuropathic ulcer of left foot with fat layer exposed L97.522 Assessments Encounter Date Diagnosis (ICD Code) Assessment Notes Treatment Notes Treatment Clinical Notes Section Notes 09/30/2024 Type 2 diabetes mellitus with diabetic polyneuropathy (ICD-10 - E11.42) 09/30/2024 Tinea unguium (ICD-10 - B35.1) 09/30/2024 Neuropathic ulcer of left foot with fat layer exposed (ICD-10 - L97.522) Response to treatment Nonapplicable Patient Educated with: WOUND CARE INSTRUCTIONS. pdf (WOUND CARE INSTRUCTIONS. pdf) Plan Of Treatment Treatment Notes Assessment Notes Neuropathic ulcer of left fo ot with fat layer exposed Patient Educated with: WOUND CARE INSTRUCTIONS.pdf (WOUND CARE INSTRUCTIONS.pdf) Pending Test Test Name Order Date [id number] SKIN/TISSUE 09/30/2024 Next Appt Details Follow Up: 2 Weeks, Reason: Provider Name:Bryanna sosa, 10/27/2024 03:30:00 PM, [address] [place] [address], [phone], Procedure Notes * Category Sub-Category Detail Notes Debride skin and subQ Open wound NEUROPATHY : Physician of record performed open wound selective debridement of devitalized necrotic/nonviable soft tissue, fibrin, exudate, epidermis, dermis, thru skin and subcutaneous fat tissue, first 20 sq cm or less, using sharp dissection with sterile 15 blade, and/or tissue nippers. ANESTHESIA was not required due to presence of NEUROPATHY. Hemostasis was controlled through direct pressure. Sterile antibiotic dressing applied. Post debridement measurements: 30 mm x 10 mm x 3mm. Character of the wound post debridement is stable (49626) Keratoma Treatment Parring or Cutting o f Benign Hyperkeratotic Lesion(s) (-57) More than 4 Lesions - Due to the at risk nature of the patients medical condition as documented in the exam findings, performance of this keratoderma treatment is medically necessary as its management by an unskilled/untrained nonprofessional would put this patients foot and overall health at risk. Therefore, the benign hyperkeratotic lesions, (5) in total, locations as stated and described in the exam ( SUB MTH (s), 3, Left, SUB MTH (s), 1, Right, SUB MTH (s), 5, Right, Plantar Heel(s), B/L ), were pared, and/or cut utilizing a sterile 15 blade, tissue nippers, and/or power dremel instrumentation by the physician of record - 09753 Debride Nails 1-5 Procedure: Due to the cli nical pathology outlined in the exam findings, performance of this nail treatment is medically necessary as its management by an unskilled/untrained nonprofessional would put this patients foot and overall health at risk. Therefore, debridement to affected nail(s), as described in exam ( T5 ), was performed exclusively by the physician of record to reduce/remove overall nail length, girth, thickness, subungual debris, and necrotic tissue, by manual and/or electrical means through the use of a nail nipper and/or dremel stylegrinder, to a more viable healthy nail plate or bed tissue 5 nails or fewer in number. Silver nitrate was used for any petechial bleeding as necessary. Definitive antifungal treatment options, both pharmaceutical and surgical, have been reviewed and discussed with the patient. The patient solely prefers the use of intermittent/as needed professional debridement services for their nail condition and understands that additional periodic treatments may be required as necessary to maintain effective symptomatic relief - 29134 Nail Reduction Nail Reduction (-27) Trimming o f all dystrophic nails - Due to the at risk nature of the patients medical condition as documented in the exam findings, performance of this nail treatment is medically necessary as its management by an unskilled/untrained nonprofessional would put this patients foot and overall health at risk. Therefore, the dystrophic nails, in locations as stated and described in the exam ( T1, T2, T3, T4, T6, T7, T8, T9 ), were debrided by the phisician of record to reduce/remove overall nail length and girth, by manual and electrical means with use of a nail nipper and/or dremel, to more viable healthy nail plate or bed tissue - G0127 Progress Notes * Lino OLIVEIRA KDOB: [birth year] (69 yo M)Acc No.[id number]:09/30/2024 Progress Note Patient: Lino CONNOR Provider: Campos Garcia DPM :1955 A ge:69 Y S ex:Male Date:09/30/2024 Address:[address] [place] [address], [place], [id number] Pcp:Jas Casarez NP-BC Subjective: * Chief Complaints: * A t Risk FootcareOpen sore * HPI: A t Risk footcare: Pt States Last PCP Visit: D ate 0 07/03/2024 Misc P atient accompanied by, ,ERIC, who is physically present in exam room at time of visit. S kin problems: Treatments: Campos resendiz from ED in [place] where patisophian was fishing this past weekend- significant improvement in erythema. * ROS: G eneral/Constitutional: Nausea d enies. V omiting d enies. H edd Thirst d enies. L oss appetite d enies, denies. C hills d enies, denies. F atigue d enies. F ever d enies, denies. N ight Sweats d enies, denies. U nexplained weight loss d enies. U nexplained weight gain d enies. O phthalmologic: Blurred vision d enies. R ed eye d enies. ? H EENTM: Dentures d enies. D izziness d enies. G lasses/contacts a dmits. R etinopathy d enies. B lurred/double vision d enies, denies.?TMJ d enies, denies. D ischarge/drainage d enies, denies. I mplants d enies. S ore throat d enies. D ental implants d enies. H roly of hearing a dmits.?Difficulty chewing/swallowing/speaking d enies. N ose bleeds d enies. S ore mouth d enies, denies. S wollen glands d enies. R espiratory: On Oxygen d enies, denies. P neumonia/pleurisy d enies. B ronchitis d enies. E mphysema d enies. C oughing d enies. C ough blood d enies. S hortness of breath d enies. W heezing d enies, denies. ? C ardiovascular: Pacemaker d enies, denies. M WATER SANDER d enies. W PW?denies, denies. C HF d enies. H eart attack d enies. S eptal defect d enies. R apid beat d enies. C hest pain d enies. A trial Fib. d enies. M urmur/Palpitations d enies. G astrointestinal: Hemorrhoids d enies. S tomach/Abdominal pain d enies. D ark blood stool d enies. I rritable bowel d enies. C onstipation d enies. D iarrhea d enies. V omiting d enies. H ematology: Swelling d enies. C lots d enies. V aricose Veins d enies. B ruising a dmits, on anticoagulants. B leeding problem a dmits, on anticoagulants. G enitourinary: Blood urine d enies. F requent/Painfu/urination/bladder control d enies. K idney stones d enies. I nfection (UTI) d enies. N ephropathy a dmits. s ex trans dis (STD) d enies. P rostate d enies. M usculoskeletal: Hammertoes a dmits. B unions d enies. S coliosis/kyphosis d enies. B ack Pain d enies. M uscle Cramps/ Resting d enies. M uscle cramps / walking d enies. G eneralized aches and pains a dmits. W eakness d enies. I nteg.: White d enies, denies. S cars d enies. C orns/calluses a dmits. I ngrown nails a dmits. P ainful nails d enies. O pen Sores?denies. R ashes d enies. N eurologic: Difficulty sleeping d enies. B ipolar d enies. B rain disorder d enies, denies. N umbness a dmits. B alance trouble d enies, denies. C onfusion d enies. F ainting/blackouts d enies. H eadache d enies.?Tingling a dmits. T remors d enies. * Medical History: * Surgical History: b ack surgery left knee replacement right knee replacement cardiac catheterization coronary angiogram spinal stenosis surgery 2019bilateral TKR 2007-2008Stent * Hospitalization/Major Diagno stic Procedure: X ray left Foot 03/04/2021MRI Left Foot 03/10/2021Injection, Pain Clinic 07/06/2021Ultrasound Bilateral legs, angiogram Left leg 06/30/2021tent Left leg 08/09/2021tent Right leg 2Capsasin treatment x30 minutes/4x year 1st dosw 12/04/2021infected foot, heart conditions 2024 * Family History: M other: , stroke, diagnosed with Unspecified essential hypertension, Unspecified heart disease, Family history of arthritis. F ather: , diagnosed with Unspecified cerebral artery occlusion with cerebral infarction. * Social History: T obacco Use: T obacco use other than smoking A re you an other tobacco user? N o Tobacco Control (Standard) T obacco use: N onsmoker A dditional Findings: Tobacco non-user C urrent nonsmoker D rugs/Alcohol: D rugs H ave you used drugs other than those for medical reasons in the past 12 months? No. M iscellaneous: C affeine: yes, frequency:, 1-2 cups per day. Children: yes. Exercise: yes. 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: . 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 D rug/Alcohol: A BRUNILDA-C (Standard) D id you have a drink containing alcohol in the past year? N o P oints 0 I nterpretation N egative * Medications: T akingClindamycin HCl , Notes to Pharmacist: 3 capsules 3 times a day for 14 daysAmiodarone HCl 200 MG Tablet 1 tablet Orally Once a day Eliquis Acetaminophen-Codeine 300-30 MG Tablet 1 tablet as needed Orally every 6 hrs Aspirin 81 MG Tablet Chewable 1 tablet Orally Once a day Effexor EpiPen metFORMIN HCl ER 500 MG Tablet Extended Release 24 Hour 1 tablet with evening meal Orally twice a day Pravastatin Sodium 40 MG Tablet 1 tablet Orally Once a day Prednisone , Notes to Pharmacist: 10mgTamsulosin HCl 0.4 MG Capsule 1 capsule Orally Once a day Vitamin D Extra Depth Diabetic Shoes with 3 Pair Custom heat-molded multi-density innersoles for 1 year Dx: Custom Orthotics as directed Extra Depth Orthopedic Shoes (1 Pair) with Customized Heat Molded Multidensity Innersoles (3 Pair) as directed Dx: NIDDM/Polyneuropathy (E11.42), Hammertoe Foot Deformity (M20.41,M20.42), Preulcerative Skin Lesion(s) (L85.1 Taking Clindamycin HCl , Notes to Pharmacist: 3 capsules 3 times a day for 14 daysTaking Amiodarone HCl 200 MG Tablet 1 tablet Orally Once a day Taking Eliquis Taking Acetaminophen-Codeine 300-30 MG Tablet 1 tablet as needed Orally every 6 hrs Taking Aspirin 81 MG Tablet Chewable 1 tablet Orally Once a day Taking Effexor Taking EpiPen Taking metFORMIN HCl ER 500 MG Tablet Extended Release 24 Hour 1 tablet with evening meal Orally twice a day Taking Pravastatin Sodium 40 MG Tablet 1 tablet Orally Once a day Taking Prednisone , Notes to Pharmacist: 10mgTaking Tamsulosin HCl 0.4 MG Capsule 1 capsule Orally Once a day Taking Vitamin D Taking Extra Depth Diabetic Shoes with 3 Pair Custom heat- molded multi-density innersoles for 1 year Dx: Taking Custom Orthotics as directed Taking Extra Depth Orthopedic Shoes (1 Pair) with Customized Heat Molded Multidensity Innersoles (3 Pair) as directed Dx: NIDDM/Polyneuropathy (E11.42), Hammertoe Foot Deformity (M20.41,M20.42), Preulcerative Skin Lesion(s) (L85.1 Not- Taking/PRNCardizem Folic Acid 1 MG Tablet 1 tablet Orally Once a day Magnesium 400 MG Tablet as directed Orally Methotrexate [...] List reviewed and reconciled with the patientNot-Taking/PRN Cardizem Not-Taking/PRN Folic Acid 1 MG Tablet 1 tablet Orally Once a day Not-Taking/PRN Magnesium 400 MG Tablet as directed Orally Not- Taking/PRN Methotrexate 2.5 MG Tablet as directed Orally [...] reviewed and reconciled with the patient * Allergies: M ethadone: vomitingIbuprofen: anaphylaxisMotrin: anaphylaxisNSAIDs: anaphylaxisyes[Allergies Verified] Objective: * Vitals: H t: 5ft 9in, Wt:248, BMI:36.62, Shoe size: 12EEE, BP:120/75mm Hg, BS: 106, Ht-cm: 175.26 cm, Wt-k.49 kg. * P ast Orders: L ab:HEMOGLOBIN A1C (GLYCOHEMOGLOBIN) (Order Date - 07/03/2024) (Collection Date & Time - 07/04/2024 08:51 AM) Value Reference Range HEMOGLOBIN A1C % (HH) 5.4 * Examination: O phthalmology Referral: DIABETES EYE EXAM P rocedure Performed: Kalee Humphrey ate of Exam Performed 0 10/11/2023 D iabetic Retinopathy Screening: Y john R etinal Screening Performed: Y john F indings of Diabetic Eye Exam: n o retinopathy N eurological: SENSORY: N eurological exam demonstrates, reduced light touch sensation, reduced sharp/dull discrimination , reduced vibration sensation, in a stocking fashion, B/L, 5.07 monofilament test performed at plantar aspects of 5 varied sites per foot shows sensation, reduced, B/L. N ails: NAILS are: E longated, overgrown, dystrophic, lytic, greater than 3mm thick, discolored and friable with crumbly malodorous subungual debris ( T5 ), all other nails not described with characteristics as possessing mycosis are elongated, overgrown, and dystrophic ( T1, T2, T3, T4, T6, T7, T8, T9 ) ,Amputation, TA. D ermatologic: SKIN FINDINGS: S kin exam reveals Keratotic lesion(s) located at, SUB MTH (s), 3, Left, SUB MTH (s), 1, Right, SUB MTH (s), 5, Right, Plantar Heel(s), B/L.? ULCER: L OCATION, sub second metatarsal head, L EFT, SIZE, 25 mm X 5mm X 3mm, BASE, fibro-granular, RIM, hyperkeratotic, UNDERMINING, mild, TRACKING, Sub Q with Fat layer exposed, DRAINAGE, serosanguineous, moderate, NECROTIC TISSUE, loosely-adherent, yellow slough, MALODOR, absent, CALOR, absent, ERYTHEMA, absent. O rthopedic: MUSCLE STRENGTH: 5 /5 all groups in a symmetrical fashion, B/L. 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 DIGITAL DEFORMITIES: A mputation TA, Digital contracture, PIPJ, 2-5 B/L, incompl-nonreducible to push- up test, no over, nor underlapping, there is evidence of shoe producing skin irritation. FOOTWEAR EVALUATION: w orn, non-supportive, shoe gear properties exacerbate patient's foot/toe deformity. V ascular: AMPUTATION, NON-TRAUMATIC (A): T A. DP PULSES (B): 0 /4, RIGHT, 1/4, LEFT. PT PULSES (B): 0 /4, B/L. CAPILLARY FILL TIME: d elayed, all digits, B/L. TROPHIC CONDITION-TEXTURE/ELASTICITY/TURGOR/HAIR GROWTH (B):?decreased, fragile, thin, shiny skin, with sparse to absent hair growth, B/L. TEMPERTURE GRADIENT (C): d ecreased, cool to cool, proximal to distal, B/L. PIGMENTATION: m ottled, B/L. EDEMA (C): a bsent, B/L. CLAUDICATION (C): d enies, B/L. REST PAIN: d enies, B/L. Assessment: * Assessment: 1. T inea unguium - B35.1 2 . T ype 2 diabetes mellitus with diabetic polyneuropathy - E11.42 (Primary) 3 . N europathic ulcer of left foot with fat layer exposed - L97.522 N otes :Response to treatment Nonapplicable Plan: * Treatment: * Procedures: D ebride Nails 1-5: Procedure: D ue to the clinical pathology outlined in the exam findings, performance of this nail treatment is medically necessary as its management by an unskilled/untrained nonprofessional would put this patients foot and overall health at risk. Therefore, debridement to affected nail(s), as described in exam ( T5 ), was performed exclusively by the physician of record to reduce/remove overall nail length, girth, thickness, subungual debris, and necrotic tissue, by manual and/or electrical means through the use of a nail nipper and/or dremel stylegrinder, to a more viable healthy nail plate or bed tissue 5 nails or fewer in number. Silver nitrate was used for any petechial bleeding as necessary. Definitive antifungal treatment options, both pharmaceutical and surgical, have been reviewed and discussed with the patient. The patient solely prefers the use of intermittent/as needed professional debridement services for their nail condition and understands that additional periodic treatments may be required as necessary to maintain effective symptomatic relief - 04110. D ebride skin and subQ: Open wound N EUROPATHY: Physician of record performed open wound selective debridement of devitalized necrotic/nonviable soft tissue, fibrin, exudate, epidermis, dermis, thru skin and subcutaneous fat tissue, first 20 sq cm or less, using sharp dissection with sterile 15 blade, and/or tissue nippers. ANESTHESIA was not required due to presence of NEUROPATHY. Hemostasis was controlled through direct pressure. Sterile antibiotic dressing applied. Post debridement measurements: 30 mm x 10 mm x 3mm. Character of the wound post debridement is stable (98771).? K eratoma Treatment: Parring or Cutting of Benign Hyperkeratotic Lesion(s) ( -57) More than 4 Lesions - Due to the at risk nature of the patients medical condition as documented in the exam findings, performance of this keratoderma treatment is medically necessary as its management by an unskilled/untrained nonprofessional would put this patients foot and overall health at risk. Therefore, the benign hyperkeratotic lesions, (5) in total, locations as stated and described in the exam ( S UB MTH (s), 3 , L eft, S UB MTH (s), 1 , R ight, S UB MTH (s), 5 , R ight, P lantar Heel(s), B /L ) , were pared, and/or cut utilizing a sterile 15 blade, tissue nippers, and/or power dremel instrumentation by the physician of record - 59425. N ail Reduction: Nail Reduction ( -27) Trimming of all dystrophic nails - Due to the at risk nature of the patients medical condition as documented in the exam findings, performance of this nail treatment is medically necessary as its management by an unskilled/untrained nonprofessional would put this patients foot and overall health at risk. Therefore, the dystrophic nails, in locations as stated and described in the exam ( T1, T2, T3, T4, T6, T7, T8, T9 ) , were debrided by the phisician of record to reduce/remove overall nail length and girth, by manual and electrical means with use of a nail nipper and/or dremel, to more viable healthy nail plate or bed tissue - G0127. * Procedure Codes: G 0127 TRIMMING DYSTROPHIC NAILS ANY #, Modifiers: XS 60222 DEBRIDE SKIN/TISSUE, Modifiers: XS 60815 DEBRIDE NAIL, 1-5, Modifiers: XS 87748 TRIM SKIN LESIONS, OVER 4, Modifiers: XS * Preventive Medicine: Counseling: U lcer: A detailed plan of care was reviewed with [...] able to do so, maintain proper bodily hydration, abide by weight-bearing restrictions at all times, [...] care consisting of pressure reduction, and proper maintenance of a moist wound environment. The patient is to cleanse the wound with warm soapy water/peroxide/saline, or betadine BID based on product availability. The patient is to apply (Medihoney) Antibiotic to the wound and cover with a DSD as directed. The patient was instructed to change dressings according to orders, or PRN saturation, leaks. The patient was instructed to monitor and report any signs or symptoms of infection or any untoward reactions. Precautions Taken: Offloading/Pressure reduction via rest/ limited activity to essential to daily life only, cane/ crutches/ walker/ knee scooter/ wheelchair, shoe modification, accommodative padding, sharp debridement, and take/apply medication as directed. THE SHORT-TERM GOALS of wound care include, prevent hospitalization, debridement to remove devitalized tissue, minimize risk for soft tissue or bone infection, initiate and promote the wound healing process, and prevent further complication such as loss of limb or life were discussed/reviewed. THE LONG-TERM GOALS of wound care include, complete wound closure if possible, facilitate patient comfort, prevent recurrence, and return the patient to their pre-ulcerative state of activity and lifestyle if possible, Debridement frequency as indicated. * Follow Up: 2 Weeks * Images: * Sign off status: Completed true * Provider: Campos Garcia DPM Date: 0 09/30/2024 Generated for Merrick alvarado/Faxing/eTransmitting on: 0 10/01/2024 09:52 AM EDT History and Physical Notes * HPI (History of Present Illness) Category Sub-Category Detail Notes Category Not es Skin problems Treatments: Clindamycin from ED in [place] where muriel was fishing this past weekend- significant improvement in erythema At Risk footcare Pt States Last PCP Visit: Date: 07/03/2024 [facility] Patient accompanied by, , ERIC, who is physically present in exam room at time of visit Examination Category Sub-Category Detail Notes Category Not es Neurological SENSORY: Neurological exa m demonstrates, reduced light touch sensation, reduced sharp/dull discrimination , reduced vibration sensation, in a stocking fashion, B/L, 5.07 monofilament test performed at plantar aspects of 5 varied sites per foot shows sensation, reduced, B/L Dermatologic SKIN FINDINGS: Skin exam reveal s Keratotic lesion(s) located at, SUB MTH (s), 3, Left, SUB MTH (s), 1, Right, SUB MTH (s), 5, Right, Plantar Heel(s), B/L ULCER: LOCATION, sub second metatarsal head, LEFT, SIZE, 25 mm X 5mm X 3mm, BASE, fibro-granular, RIM, hyperkeratotic, UNDERMINING, mild, TRACKING, Sub Q with Fat layer exposed, DRAINAGE, serosanguineous, moderate, NECROTIC TISSUE, loosely-adherent, yellow slough, MALODOR, absent, CALOR, absent, ERYTHEMA, absent Orthopedic FOOT MORPHOLOGY: (-) Charcot collapse/aniyah truction noted at [facility] FOOTWEAR EVALUATION: worn, non-supportiv e, shoe gear properties exacerbate patient's foot/toe deformity DIGITAL DEFORMITIES: Amputation TA, Digi olivia contracture, PIPJ, 2-5 B/L, incompl- nonreducible to push-up test, no over, nor underlapping, there is evidence of shoe producing skin irritation MUSCLE STRENGTH: 5/5 all groups in a symmetrical fashion, B/L Ophthalmology Referral DIABETES EYE EXAM Procedure Perform ed:: Yes Date of Exam Performed: 10/11/2023 Diabetic Retinopathy Screening:: Yes Retinal Screening Performed:: Yes Findings of Diabetic Eye Exam:: no retin opathy Vascular DP PULSES (B): 0/4, RIGHT, 1/4, LEFT PT PULSES (B): 0/4, B/L CAPILLARY FILL TIME: delayed, all digits , B/L TEMPERTURE GRADIENT (C): decreased, cool to cool, proximal to distal, B/L TROPHIC CONDITION-TEXTURE/ELASTICITY/TURGOR/HAIR GROWTH (B): decreased, fragile, thin, shiny skin, wi th sparse to absent hair growth, B/L EDEMA (C): absent, B/L CLAUDICATION (C): denies, B/L REST PAIN: denies, B/L PIGMENTATION: mottled, B/L AMPUTATION, NON-TRAUMATIC (A): TA Nails NAILS are: Elongated, overg rown, dystrophic, lytic, greater than 3mm thick, discolored and friable with crumbly malodorous subungual debris ( T5 ), all other nails not described with characteristics as possessing mycosis are elongated, overgrown, and dystrophic ( T1, T2, T3, T4, T6, T7, T8, T9 ) , Amputation, TA
--- NOTE | 2024-10-01 09:24 | HM_ITS ---
* Total monitoring time 3 days. * Underlying rhythm is sinus with an average rate of 70/Min. * Atrial fibrillation noted with an overall burden of about 18%. Longest episode 6 hours and 45 minutes. Fastest 130/Min. * Supraventricular ectopy noted with a burden of 2.4%. * Rare ventricular ectopy. One triplet. * No significant pauses or high-grade AV blocks. * Patient marker correlates with sinus rhythm. * Patient diary describes shortness of breath with any exertion most of the time with fatigue. MTDD
--- OUTSIDE RECORDS SUMMARY | 2024-10-01 09:52 | XMS_ITS | Patient Health Record ---
Author Organization [facility] Address [address] [place] [address] Care Team Providers Care Relocation Specialist Name Role Phone GUILLERMO RICHTER Primary Care Provider Cachorro Conway Jr Reason For Referral No Information Medications Medication [...] Insured Coverage Start Date Coverage End Date [facility] (NEEDS REFERRA L) [address] [place] [address] [id number] STEVEN OLIVEIRA Self - patient is the insured Medical (General) History Medical History History ICD Code elevated Cholesterol colonoscopy 03/13/2003 Denies [place],DM,CVA,Lung disease,renal dise ase polymyalgia rheumatica arthritis Surgical History Surgery Date(Month/Year) left knee replacement 2008 right knee replacement 2007 carpal tunnel release
--- OUTSIDE RECORDS SUMMARY | 2024-10-01 09:52 | XMS_ITS | Clinical Summary ---
Author Organization [facility] Address [address] [place] [address] Care Team Providers Care Cartography Supervisor Name Role Phone Jas Casarez Moy Primary Care Provider Allergies Active Allergy [...] Date Diagnosed Date Resolved Date Atherosclerosis of te-mo[place] ar teries of extremities with gangrene, left leg 11/21/20232 Encounters Date Type Department Care Team Description 09/08/2024 11:30 AM EDT Follow-Up [facility] Vascular Surgery [address] [place] [address] Sales Estimator: Rosanna Lau, THERESE S/P insertion of iliac artery stent (Primary Dx); Atherosclerosis of artery of extremity with intermittent claudication (HCC); Diabetes 1.5, managed as type 2 (HCC) 09/08/2024 8:12 AM EDT - 09/08/2024 11:59 PM EDT Hospital Encounter [facility] [address] [place] [address] Aftercare following surgery of the circulatory system Discharge Disposition: Home or Self Care (01) 09/08/2024 8:12 AM EDT - 09/08/2024 11:59 PM EDT Hospital Encounter [facility] [address] [place] [address] Aftercare following surgery of the circulatory system Discharge Disposition: Home or Self Care () 09/08/2024 8:12 AM EDT - 09/08/2024 11:59 PM EDT Hospital Encounter [facility] [address] [place] [address] Aftercare following surgery of the circulatory system [...] Info) Description 09/08/2025 1:00 PM EDT Appointment [facility] [address] [place] [address] 09/08/2025 1:45 PM EDT Appointment [facility] [address] [place] [address] 09/08/2025 2:30 PM EDT Appointment [facility] [address] [place] [address] 09/08/2025 3:40 PM EDT Follow-Up [facility] Vascular Surgery [address] [place] [address] Sales Estimator: Denton Zuniga MD [address] [place] [address] Health Maintenance Due Date Last Done Comments [...] this topic Medical Devices Implanted Type Area Leak Operator Paraffin Plant Device Identifier Shelf Expiration Date Model / Serial / Lot System Closure And Repair Suture-Mediate d Perclose Prostyle - [id number] Implanted:Qty: 1 on 08/09/2021 by Denton Palacios MD at [facility] Implant Left: Leg [employer] 01/02/2023 22686-89 / / System Closure And Repair Suture-Mediate d Perclose Prostyle - S0 - [id number] Implanted:Qty: 1 on 09/13/2021 by Denton Palacios MD at [facility] Implant Left: Leg [employer] [id number] 07/03/2023 85741-29 / 0 / [id number] System Closure And Repair Suture-Mediate d Perclose Prostyle - S0 - [id number] Implanted:Qty: 1 on 11/13/2023 by Denton Palacios MD at [facility] Implant N/A: Groin [employer] [id number] 09/01/2025 [id number] / 0 / [id number] Patch Pericardium Bovine .[id number] Photofix - [id number] Implanted:Qty: 1 on 11/21/2023 by Denton Palacios MD at [facility] Implant Left: Arterial [employer] 06/08/2025 PFP0.8X8 / / [id number] Patch Pericardium Bovine .[id number] Photofix - [id number] Implanted:Qty: 1 on 11/21/2023 by Denton Palacios MD at [facility] Implant Left: Arterial [employer] 05/11/2025 PFP0.8X8 / / [id number] Stent System Vascular [id number] [employer]om[employer] 3d - S0 - [id number] Implanted:Qty: 1 on 08/09/2021 by Denton Palacios MD at [facility] Stent Left: Leg [facility] [id number] 10/21/2022 [id number] -1 1 / 0 / [id number] Stent System Vascular 6.4d100lu CircuLite 3d - S0 - [id number] Implanted:Qty: 1 on 09/13/2021 by Denton Palacios MD at [facility] Stent Right: Leg [facility] [id number] 02/09/2023 [id number] -1 0 / 0 / [id number] Stent Icast Covered [id number] - [id number] - [id number] Implanted:Qty: 1 on 11/13/2023 by Denton Palacios MD at [facility] Stent Left: Arterial Voalte [facility] [id number] 12/13/2025 [id number] / [id number] / Procedures * Due to [place] state law, this organization might not be [...] to Health Maintenance Results * Due to [place] state law, this organization might not be [...] - 145 mmol/L 11/23/2023 6:55 AM EDT [facility] K 3.9 3.5 - 5.3 mmol/L 11/23/2023 6:55 AM EDT [facility] Cl 105 98 - 107 mmol/L 11/23/2023 6:55 AM EDT [facility] CO2 24 24 - 32 mmol/L 11/23/2023 6:55 AM EDT [facility] BUN 10 7 - 23 mg/dL 11/23/2023 6:[address] [facility] Creatinine 0.70 0.60 - 1.30 mg/dL 11/23/2023 6:55 AM EDT [facility] Glucose 118(H) 65 - 99 mg/dL 11/23/2023 6:55 AM EDT [facility] Calcium 8.1(L) 8.6 - 10.5 mg/dL 11/23/2023 6:55 AM EDT [facility] Anion Gap 9 5 - 15 11/23/2023 6:55 AM EDT [facility] eGFR >90 >=60 mL/min/1. 73m2 11/23/2023 6:55 AM EDT [facility] Comment:The estimated glomer ular [...] MD LAB BLOOD ORDERABLES Mahnaz sutton Result [facility] [address] [place] [address], * (ABNORMAL) Hemoglobin A1c (11/22/2023 2:23 AM EDT) Hemoglobin A1C 6.2(H) <5.7 % of total Hgb 11/22/2023 10:11 AM EDT [facility] Comment: For someone without known diabetes, a [...] (MG/DL) 131 mg/dL 11/22/2023 10:11 AM EDT [facility] eAG (MMOL/L) 7.3 mmol/L 11/22/2023 10:11 AM EDT [facility] Comment: This test was performed on the Daniella elmer c503 platform. Effective 05/07/23, a change in test platforms from the [employer] to the Daniella elmer c503 may have shifted HbA1c results compared to historical results. Based on laboratory validation testing conducted at [facility], the Daniella platform relative to the Marino [...] 2:23 AM EDT 11/22/2023 2:43 AM EDT [facility] 11/22/2023 10:11 AM EDT [facility] Received Date:[id number] us Denton Palacios MD LAB BLOOD ORDERABLES Mahnaz sutton Result [facility]WE[facility] [address] [facility] [address], [place] [address], [place] [phone] [facility] [address] [facility] [address], [place] [address], [place] [phone] from Last 3 Months or Most Recently [...] 8:48 AM 09/06/2021 4:36 PM Care Teams Cartography Supervisor Relationship Specialty Start Date End Date Jas Casarez [address] [place] [address] PCP - General 07/19/21
--- OUTSIDE RECORDS SUMMARY | 2024-10-01 09:52 | XMS_ITS | Clinical Summary ---
Author Organization [facility] Address [address] [facility] [address] [place] [address] Phone Care Team Providers Care Detasseler Name Role Phone Pcp, Unknown Primary Care Provider Unavailabl e Social History Tobacco Use Types Packs/Day Years Used Date Smoking Tobacco: Never Assessed Education Answer Date Recorded Are you interested in more education? Not on bill e 06/30/2022 Are you concerned about learning? Not on file 06/30/2022 No 06/30/2022 No 06/30/2022 Digital Access Answer Date Recorded No 07/29/2022 No 07/29/2022 No 07/29/2022 Reliable internet access at home? Not on file 07/29/2022 Device with a working camera? Not on file Sex and Gender Information Value Date Recorded Sex Assigned at Not on file Legal Sex Male 9:58 PM EDT Gender Identity Not on file Sexual Orientation Not on file Plan of Treatment Health Maintenance Due Date Last Done Comments LIPID PANEL 1953 DEPRESSION SCREENING 1965 SMOKING Hx and SMOKELESS TOBACCO SCREENING 1966 HEPATITIS C SCREENING 1971 COLOGUARD 1998 COLONOSCOPY 1998 COLORECTAL CANCER SCREENING 1998 FIT TEST 1998 FOBT 1998 SIGMOIDOSCOPY 1998 VIRTUAL COLONOSCOPY 1998 ZOSTER VACCINES (1 of 2) 2003 PNEUMOCOCCAL VACCINES (50+ years) (2 of 2 - PPSV23) 12/23/2019 12/22/2018 COVID-19 VACCINE (2023-2 5 season) 2023 03/10/2021, 10/27/2020, 10/06/2020 Adult Td,Tdap Booster 11/27/2024 11/27/2014 RSV VACCINE (1 - 1-dose 75+ series) 2028 HEPATITIS A VACCINES Aged Out No long er eligible based on patient's age to complete this topic HIB VACCINES Aged Out No longer eligi ble based on patient's age to complete this topic MENINGOCOCCAL VACCINES (ACWY) Aged Out No longer eligible based on patient's age to complete this topic MENINGOCOCCAL VACCINES (B) Aged Out N o longer eligible based on patient's age to complete this topic Medical Devices Not on file Insurance ARIANE GRISSOM [id number] [facility] ONE CARE MEDICARE REPLACEMENT MEDICARE PART A & B [facility] C[facility] MEDICARE REPLACEMENT MEDICARE PART A & [place] [id number] [facility] MEDICARE REPLACEMENT MEDICARE PART A & [place] [address] [place] [address] [facility] ONE CARE MEDICARE REPLACEMENT MEDICARE PART A & [facility] MEDICARE REPLACEMENT MEDICARE PART A & B [facility] MEDICARE REPLACEMENT MEDICARE PART A & B [facility] ONE CARE MEDICARE REPLACEMENT MEDICARE PART A & [place] [id number] [facility] [place] [id number] MEDICARE PART A & [facility] ONE CARE MEDICARE REPLACEMENT MEDICARE PART A & B [facility] Care Teams Detasseler Relationship Specialty Start Date End Date Pcp, Unknown PCP - General 04/19/21 Additional Source Comments The information contained in this document represents components of the legal health record. It is not the complete legal health record.[facility]
== END ==
LOC: HO.CARD 09:21
PROVIDERS: PCP Nurse Practitioner Family; Visit Provider Internal Medicine
DX: I48.0 Paroxysmal atrial fibrillation (principal); R06.02 Shortness of breath; R53.83 Other fatigue
CPT/HCPCS: 93242

== ENCOUNTER → 2024-10-01 09:24 | Outpatient (BNV) | payer MEDICARE, SELFPAY | PROVIDERS: PCP Nurse Practitioner Family; Visit Provider Internal Medicine | DX: I48.91 Unspecified atrial fibrillation (principal); I49.49 Other premature depolarization; I49.3 Ventricular premature depolarization | CPT/HCPCS: 93244 ==

== ENCOUNTER 2024-10-21 10:03 | Outpatient (AMB) | payer MEDICARE, SELFPAY ==
--- NOTE | 2024-10-21 10:10 | A.OFFVIS_ITS ---
Vital Signs 10/21/24 10:14 Height 5 ft 9 in Weight 250 lb 14.177 oz BMI 37.0 BP 110/72 Blood Pressure Location Lt brachial Position Sitting Pulse 83 Pulse Source Monitor Intake Visit Reasons: fu holter /discuss ablation Rn Medication Required: No Accompanied by: Spouse Allergies NSAIDS (Non-Steroidal Anti-Inflamma Allergy (Severe, Verified 10/06/24 09:01) Anaphylaxis methadone Allergy (Intermediate, Verified 10/06/24 09:01) Vomiting Medication List - Last Reconciled 10/21/24 by Ari Orta MD acetaminophen-codeine 300-30 mg 1 tab PO BID PRN 30 days amiodarone 400 mg PO BID amiodarone 200 mg PO ONCE apixaban (Eliquis) 5 mg PO BID 90 days aspirin 81 mg PO DAILY blood sugar diagnostic (FreeStyle Test strips) Test blood sugar once a day cholecalciferol (vitamin D3) 50 mcg PO DAILY 90 days CPAP Machine/Device (CPAP) use daily NS [Diabetic shoes with 3 pair of custom orthotics wear daily] diclofenac sodium 1% 4 grams topical QID PRN 30 days epinephrine (EpiPen) 0.3 mg (0.3 mL) IM Q10M PRN ketoconazole 2% 1 appl topical 2XW metformin ER 500 mg PO DAILY 90 days oxybutynin chloride ER 10 mg PO DAILY 90 days pravastatin 40 mg PO DAILY prednisone 5 mg PO BID 90 days ropinirole 0.5 mg PO BEDTIME semaglutide (Ozempic) 2 mg (0.75 mL) subcut QWEEK tadalafil 20 mg PO DAILY PRN tamsulosin 0.4 mg PO DAILY 90 days venlafaxine ER 150 mg PO DAILY 90 days HPI Comments Details: Lino returns for follow-up regarding his cardiac issues including atrial fibrillation as well as coronary artery disease. He has morbid obesity, polymyalgia rheumatica, rheumatoid arthritis on chronic steroids. In the past, he underwent cardiac workup due to shortness of breath. He had nonobstructive disease in the LAD which is being treated medically. In 2023, he had vascular surgery at [facility]. Per notes, left-sided femoral endarterectomy/great toe amputation. In that setting, found to have atrial fibrillation. More recently, he underwent Holter monitor which showed a high atrial fibrillation burden. After that, he was put on amiodarone. Atrial fibrillation burden has come down but it is still significant. He has been feeling short of breath with any form of activity. However, suspect more so it is from deconditioning as opposed to atrial fibrillation as he feels short of breath even when he is in sinus rhythm. He does not really feel much of palpitations overall. [facility] Medical History Amputation of left great toe Cellulitis Dry gangrene Spinal cord stimulator status Polymyalgia rheumatica PAD (peripheral artery disease) Ascending aorta dilatation Sleep apnea Type 2 diabetes mellitus with peripheral neuropathy Diabetes mellitus due to underlying condition with diabetic neuropathy, without long-term current use of insulin Arterial insufficiency Iatrogenic Saint Elmo's disease Morbid obesity Atherosclerotic cardiovascular disease Diabetic neuropathy associated with type 2 diabetes mellitus Seronegative rheumatoid arthritis Obesity (BMI 30-39.9) Vitamin D deficiency Diabetes type 2, controlled Osteopenia Adrenal 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 Painful total knee replacement, right Surgical History Status post amputation History of endarterectomy History of esophagogastroduodenoscopy (EGD) H/O colonoscopy Hx of coronary angiogram History of back surgery (~2018) History of knee replacement procedure of right knee History of knee replacement procedure of left knee Hx of cardiac cath Family History Father Angina pectoris Mother Stroke Social History Household Members: Spouse Housing: House Are you a primary rn care transition to a significant other at home: No Do you presently have visiting nurse or other home services: No 75 years or older and lives alone: No Alcohol intake: former Year quit: 2023 Patient Tobacco Use Status: Former Tobacco user Years Smoked: 20 years ago e-Cigarette/Vaping Use: Never Used Second Hand Smoke Exposure: No Substance Use Type: Marijuana Advance Directives Date on File: 01/07/24 service: No Current occupational status: retired Cognitive needs: No Hearing needs: No Vision needs: No Review of Systems Const Denies chills, Denies fatigue, Denies fever(s), Denies frequent falls, Denies weakness, Denies weight gain and Denies weight loss ENT Denies dizziness Card Denies chest pain, Denies leg edema, Denies lightheadedness, Denies palpitations, Reports dyspnea and Reports dyspnea on exertion Resp Denies cough, Reports dyspnea and Reports dyspnea on exertion GI Denies hematochezia Musc Denies abnormal gait, Denies muscle weakness, Denies numbness, Denies radiating pain into limb and Denies tingling Neuro Denies abnormal gait, Denies dizziness, Denies frequent falls, Denies numbness, Denies tingling and Denies weakness Endo Denies fatigue and Denies palpitations Physical Exam Vital Signs: Last Vital Signs Pulse 83 10/21/24 10:14 BP 110/72 10/21/24 10:14 BMI result Body Mass Index 37.0 Const General: comfortable and no acute distress Orientation/consciousness: patient oriented x3 HEENT Other: Unremarkable Head: Yes normal to inspection Neck Neck: Yes normal visual inspection Chest Chest palpation & inspection: normal inspection of the chest Resp Auscultation: clear to auscultation bilaterally Cardio Palpation: normal PMI Heart sounds: S1 normal heart sound present, S2 normal heart sound present, no gallops, no murmurs and no rubs GI Palpation (GI): Soft to palpation Back/Spine/Pelvis Other: unremarkable Skin General skin exam: no rashes or lesions noted Neuro General: patient oriented x3 Extrem General: Yes normal to inspection Psych Mental Status: mental status grossly normal Office Procedures EKG Details: EKG shows atrial fibrillation at a rate of 83/Min. [id number], Complete Assessment & Plan Assessment & Plan (1) PAF (paroxysmal atrial fibrillation): Code(s): I48.0 - Paroxysmal atrial fibrillation Category: Medical Plan: In the most recent Holter, atrial fibrillation burden of 18%. Longest episode was 6 hours and 45 minutes with the fastest rate of 130/Min. Supraventricular ectopy burden 2.4%. Patient diary describing shortness of breath with any exertion most of the time. This was done on amiodarone. In the previous Holter, atrial fibrillation burden was as much as 40% with rapid rates. He was also on diltiazem but we had to decrease the dose and eventually stop it as he was having bradycardia while in sinus which was also causing additional symptoms. Due to long-term issues with Amiodarone, we discussed about EP referral/ablation. He is interested in that and would like to pursue. We will make a referral for the same. In the echocardiogram from 2023, LVEF 55% with normal biatrial size. Continue anticoagulation. (2) Atherosclerotic cardiovascular disease: Comment: [facility] with [facility] Code(s): I25.10 - Atherosclerotic heart disease of [place] coronary artery without angina pectoris Category: Medical Plan: Cardiac catheterization from 2018 showed 50% stenosis in the mid LAD, but IFR itself was not significant. Minor irregularities in the circumflex and right coronary arteries and left main was normal. Unremarkable perfusion imaging from 02/2023. Clinically, no overt symptoms. Mainly risk factor modification. Continue statins. He is only on low dose of Pravastatin as he cannot take high dose Atorvastatin. Acceptable lipids. (3) Morbid obesity: Code(s): E66.01 - Morbid (severe) obesity due to excess calories Category: Medical Plan: Long-term issue and not clear how much can change. (4) Ascending aorta enlargement: Code(s): I77.89 - Other specified disorders of arteries and arterioles Category: Medical Plan: Ascending aortic size 4 cm on echocardiogram. Prior to this, 4.4 cm. We can follow this on echocardiogram. Plan Discussion Notes I discussed with the patient the option of an ablation procedure for managing atrial fibrillation, explaining that it could reduce the frequency of episodes and potentially allow discontinuation of amiodarone. I informed him that he would be referred to a cardiac master steam yacht for further evaluation. We also discussed the importance of increasing physical activity to address deconditioning and the need to continue current medications, including amiodarone, with a plan to recheck thyroid function in three months. Patient was informed and verbally consented to the use of an ambient scribe for clinic note documentation during this visit. Orders: Orders TSH reflex Free T4 3 Months I48.0 - Paroxysmal atrial fibrillation, R94.6 - Abnormal results of thyroid function studies Patient Instructions: - Consider an ablation procedure for atrial fibrillation management. - Increase physical activity, such as walking regularly, to improve conditioning. - Continue taking current medications, including amiodarone. - Schedule a follow-up with a cardiac master steam yacht for further evaluation. - Monitor symptoms and seek medical attention if significant changes occur. Coding Level of Care Code Est Pt Level 4 (79943) Complex EM visit Add On G2211 Diagnoses PAF (paroxysmal atrial fibrillation) I48.0 Atherosclerotic cardiovascular disease I25.10 Morbid obesity E66.01 Ascending aorta enlargement I77.89 CPT Codes EKG - CPT: 07606-Apnunslawcxfkhuzy, Complete ([id number])
[2024-10-21 10:14] VITALS: BP 110/72; PULSE 83; BMI 37.0
--- OUTSIDE RECORDS SUMMARY | 2024-10-21 11:16 | XMS_ITS | Patient Health Record ---
Author Organization [facility] Address [address] [place] [address] Care Team Providers Care Fern Gatherer Name Role Phone GUILLERMO RICHTER Primary Care Provider Cachorro Conway Jr Unavailable Reason For Referral No Information Medications Medication [...] Insured Coverage Start Date Coverage End Date [facility] (NEEDS REFERRA L) [address] [place] [address] [phone] [id number] STEVEN OLIVEIRA Self - patient is the insured Medical (General) History Medical History History ICD Code elevated Cholesterol colonoscopy 03/13/2003 Denies [place],DM,CVA,Lung disease,renal dise ase polymyalgia rheumatica arthritis Surgical History Surgery Date(Month/Year) left knee replacement 2008 right knee replacement 2007 carpal tunnel release
--- OUTSIDE RECORDS SUMMARY | 2024-10-21 11:16 | XMS_ITS | Clinical Summary ---
Author Organization [facility] Address [address] [employer] [employer] [facility] [address] [place] [address] Phone Care Team Providers Care Silo Man Name Role Phone Pcp, Unknown Primary Care [...] Devices Not on file Insurance ARIANE GRISSOM [id number] [facility] ONE CARE MEDICARE REPLACEMENT MEDICARE PART A & B [facility] CARE MEDICARE REPLACEMENT MEDICARE PART A & [place] [id number] [facility] CARE MEDICARE REPLACEMENT MEDICARE PART A & [place] [address] [place] [address] [facility] ONE CARE MEDICARE REPLACEMENT MEDICARE PART A & B [facility] CARE MEDICARE REPLACEMENT MEDICARE PART A & B [facility] MEDICARE REPLACEMENT MEDICARE PART A & B [facility] ONE CARE MEDICARE REPLACEMENT MEDICARE PART A [place] [id number] [facility] ONE [place] [id number] MEDICARE PART A & B [facility] ONE CARE MEDICARE REPLACEMENT MEDICARE PART A & B [facility] Care Teams Silo Man Relationship Specialty Start Date End Date Pcp, Unknown PCP - General 04/19/21 Additional Source Comments The information contained in this document represents components of the legal health record. It is not the complete legal health record.[facility]
--- OUTSIDE RECORDS SUMMARY | 2024-10-21 11:17 | XMS_ITS | Clinical Summary ---
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, left leg 11/21/202311/04 Encounters Date Type Department Care Team Description 09/08/2024 11:30 AM EDT Follow-Up [facility] Building Vascular Surgery [address] [place] [address] [employer] Mix[employer] Superintendent: oRsanna Lau, THERESE S/P insertion of iliac artery stent (Primary Dx); Atherosclerosis of artery of extremity with intermittent claudication (HCC); Diabetes 1.5, managed as type 2 (HCC) 09/08/2024 8:12 AM EDT - 09/08/2024 11:59 PM EDT Hospital Encounter [facility] Vascular Lab [address] [place] [address] Aftercare following surgery of the circulatory system Discharge Disposition: Home or Self Care () 09/08/2024 8:12 AM EDT - 09/08/2024 11:59 PM EDT Hospital Encounter [facility] Lab [address] [place] [address] Aftercare following surgery of the circulatory system Discharge Disposition: Home or Self Care () 09/08/2024 8:12 AM EDT - 09/08/2024 11:59 PM EDT Hospital Encounter [facility] [address] [place] [address] Aftercare following surgery of the circulatory system Discharge Disposition: Home or Self Care (01) from Last 3 Months Immunizations Immunization Administration [...] per week [facility] Utilities Answer Date Recorded In the past [...] Info) Description 09/08/2025 1:00 PM EDT Appointment [facility] [address] [place] [address] 09/08/2025 1:45 PM EDT Appointment [facility] [address] [place] [address] 09/08/2025 2:30 PM EDT Appointment [facility] [address] [place] [address] 09/08/2025 3:40 PM EDT Follow-Up [facility] Building Vascular Surgery [address] [place] [address] [employer] Superintendent: Denton Zuniga MD [address] [place] [address] Health Maintenance Due Date Last Done Comments [...] this topic Medical Devices Implanted Type Area Restaurant Kitchen And Service Manager Device Identifier Shelf Expiration Date Model / Serial / Lot System Closure And Repair Suture-Mediate d Perclose Prostyle - [id number] Implanted:Qty: 1 on 08/09/2021 by Denton Palacios MD at [facility] Implant Left: Leg [employer] 01/02/2023 57071-48 / / System Closure And Repair Suture-Mediate d Perclose Prostyle - S0 - [id number] Implanted:Qty: 1 on 09/13/2021 by Denton Palacios MD at [facility] Implant Left: Leg [employer] [id number] 07/03/2023 64116-23 / 0 / [id number] System Closure And Repair Suture-Mediate d Perclose Prostyle - S0 - [id number] Implanted:Qty: 1 on 11/13/2023 by Denton Palacios MD at [facility] Implant N/A: Groin [employer] [id number] 09/01/2025 33936-28 / 0 / [id number] Patch Pericardium Bovine .0nur8xn Photofix - [id number] Implanted:Qty: 1 on 11/21/2023 by Denton Palacios MD at [facility] Implant Left: Arterial [employer] 06/08/2025 PFP0.8X8 / / [id number] Patch Pericardium Bovine .7uva2nt Photofix - [id number] Implanted:Qty: 1 on 11/21/2023 by Denton Palacios MD at [facility] Implant Left: Arterial [employer] 05/11/2025 PFP0.8X8 / / [id number] Stent System Vascular 7.5p008sg BiomBetfair 3d - S0 - [id number] Implanted:Qty: 1 on 08/09/2021 by Denton Palacios MD at [facility] Stent Left: Leg [facility] [id number] 10/21/2022 [id number] -1 1 / 0 / [id number] Stent System Vascular 6.5j103mt [employer] 3d - S0 - [id number] Implanted:Qty: 1 on 09/13/2021 by Denton Palacios MD at [facility] Stent Right: Leg [facility] [id number] 02/09/2023 [id number] -1 0 / 0 / [id number] Stent Icast Covered [id number] - [id number] - [id number] Implanted:Qty: 1 on 11/13/2023 by Denton Palacios MD at [facility] Stent Left: Arterial Monthlys [facility] [id number] 12/13/2025 09344 / [id number] / Procedures * Due to [place] state law, this organization might not be [...] to Health Maintenance Results * Due to [place] state law, this organization might not be [...] R SFA stent?, L ASIM stent (2023) Raman Lin NP CV VASCULAR PROCEDURES Final [...] - 145 mmol/L 11/23/2023 6:55 AM EDT [facility] K 3.9 3.5 - 5.3 mmol/L 11/23/2023 6:55 AM EDT [facility] Cl 105 98 - 107 mmol/L 11/23/2023 6:55 AM EDT [facility] CO2 24 24 - 32 mmol/L 11/23/2023 6:55 AM EDT [facility] BUN 10 7 - 23 mg/dL 11/23/2023 6:55 AM EDT [facility] Creatinine 0.70 0.60 - 1.30 mg/dL 11/23/2023 6:55 AM EDT [facility] Glucose 118(H) 65 - 99 mg/dL 11/23/2023 6:55 AM EDT [facility] Calcium 8.1(L) 8.6 - 10.5 mg/dL 11/23/2023 6:55 AM EDT [facility] Anion Gap 9 5 - 15 11/23/2023 6:55 AM EDT [facility] eGFR >90 >=60 mL/min/1. 73m2 11/23/2023 6:55 AM EDT [facility] Comment:The estimated glomer ular [...] AM EDT 11/23/2023 6:21 AM EDT us Detnon Palacios MD LAB BLOOD ORDERABLES Mahnaz l Result [facility] [address] [place] [id number], * (ABNORMAL) Hemoglobin A1c (11/22/2023 2:23 AM EDT) Hemoglobin A1C 6.2(H) <5.7 % of total Hgb 11/22/2023 10:11 AM EDT [employer] Comment: For someone without known diabetes, a [...] (MG/DL) 131 mg/dL 11/22/2023 10:11 AM EDT 8aweek [facility] eAG (MMOL/L) 7.3 mmol/L 11/22/2023 10:11 AM EDT [facility] Comment: This test was performed on the Daniella elmer c503 platform. Effective 05/07/23, a change in test platforms from the Marino Market Development Specialist to the Daniella elmer c503 may have shifted HbA1c results compared to historical results. Based on laboratory validation testing conducted at [facility] the Daniella platform relative to the Marino [...] 2:23 AM EDT 11/22/2023 2:[address] [facility] 11/22/2023 10:11 AM EDT [facility] Received Date: Denton Palacios MD LAB BLOOD ORDERABLES Mahnaz sutton Result [facility] [address] [facility] [address], [place] [address], 8aweek [facility] [address] [facility] [address], [place] [address], from Last 3 Months or Most Recently [...] 8:48 AM 09/06/2021 4:36 PM Care Teams Buildings And Grounds Director Relationship Specialty Start Date End Date Jas Casarez [address] [place] [address] PCP - General 07/19/21
--- OUTSIDE RECORDS SUMMARY | 2024-10-21 11:17 | XMS_ITS | Patient Health Record ---
Author Organization [facility] Address [address] [facility] [place] [address] Care Team Providers Care Media Reconciliation Specialist Name Role Phone Jas Stone Primary Care Provider Unav bentleyable Bryanna Garcia Unavailable [phone] Barrington Cramer Unavailable [phone] Tono Skinner Unavailable [phone] Allergies Allergen (clinical drug ingredient) Drug/Non Drug [...] (HH) 5.4 HEMOGLOBIN A1C (GLYCOHEMOGLO BIN) Reviewed date:09/30/2024 08:52:00 AM Interpretation: Performing Lab: Notes/Report: HEMOGLOBIN A1C % (HH) 5.4 Reason For Referral No Information Medications Medication SIG (Take, Route, Frequency, Duration) Notes Start Date End Date Status Acetaminophen-Codeine 300-30 MG 1 tablet as needed Orally every 6 hrs Active Cardizem Not-Taking Venlafaxine HCl 75 MG 1 tablet with food Orally Once a day; Duration: 30 day(s) Not-Taking Aspirin 81 MG 1 tablet Orally Once a day; Duration: 30 day(s) Active Olopatadine HCl 0.1 % 1 drop into affected eye Ophthalmic Twice a day Not-Taking Ropinirole Hydrochloride Not-Taking EpiPen Active Lidocaine-Prilocaine 2.5-2.5 % as directed Externally Not-Taking Effexor Active Naloxone HCl 4 MG/0.1ML as directed Nasally Not-Taki ng metFORMIN HCl ER 500 MG 1 tablet with evening meal Orally twice a day Active Hydrocortisone Not-T aking Folic Acid 1 MG 1 tablet Orally Once a day; Duration: 30 day(s) Not-Taking Ketoconazole Not-Dipesh ing Prednisone 10mg Active Diclofenac Not-Takin g Pravastatin Sodium 40 MG 1 tablet Orally Once a day; Duration: 30 day(s) Active EPINEPHrine 0.3 MG/0.3ML as directed Injection Not-Taking Vitamin D Active Tamsulosin HCl 0.4 MG 1 capsule Orally Once a day; Duration: 30 day(s) Active Extra Depth Diabetic Shoes [...] Magnesium 400 MG as directed Orally Not-Taking Keflex 500 MG 1 capsule Orally every 12 hrs; Duration: 10 day(s) 10/24/2023 Not-Taking Clindamycin HCl 3 capsules 3 times a day for 14 days Active Metoprolol Succinate ER Not-Taking Amiodarone HCl 200 MG 1 tablet Orally Once a day Active Humira Pen 40 MG/0.4ML as directed Subcutaneous Not-Taking Cephalexin 500 MG 1 capsule Orally every 8 hrs; Duration: 10 days Not-Taking Eliquis Active Amoxicillin Not-Taki ng Plavix Not-Taking Immunizations Vaccine Route Administration Date Status [...] Problem Acquired hammer toe of right foot (349764964781375 5) Other hammer toe(s) (acquired), right foot (M20.41) Active confirmed Problem Acquired hammer toe of left foot (177676542551779 3) Other hammer toe(s) (acquired), left foot (M20.42) Active confirmed Problem Polyneuropathy due to type 2 diabetes mellitus (721471527) Type 2 diabetes mellitus with diabetic polyneuropathy (E11.42) Active confirmed Problem 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) Active confirmed Response to treatment Nonapplicable Vital Signs Blood pressure diastolic 75 mm Hg 09/30/2024 Height 5ft 9in in 09/30/2024 Blood pressure systolic 120 mm Hg 09/30/2024 Weight 248 lbs 09/30/2024 BMI 36.62 kg/m2 09/30/2024 Procedures Procedure Date Ordered Date Performed Result Body Sit e 25217-TMKDPNK SKIN/TISSUE 10/24/2023 N/A 82410-XANPVNW SKIN/TISSUE 11/02/2023 N/A 81435-ZLXIDVX SKIN/TISSUE 02/04/2024 N/A 35467-SNXWOKY SKIN/TISSUE 02/11/2024 N/A 10540 - Tenotomy, open flexor 02/11/2024 N/A 41142-ZOVHKOS SKIN/TISSUE 02/20/2024 N/A 49283-LDGEUZM SKIN/TISSUE 03/10/2024 N/A 34926-MPBLFXD SKIN/TISSUE 03/17/2024 N/A 09315-ZIEZUEH SKIN/TISSUE 03/26/2024 N/A 72395-IZBSPVN NAIL, 1-5 07/25/2024 N/A 07622-YQRH SKIN LESIONS, OVER 4 07/25/2024 N/A T0824-EKQRFOZF DYSTROPHIC NAILS ANY # 07/25/2024 N/A 22220-AHRQKWQ SKIN/TISSUE 09/30/2024 N/A Encounters Encounter Location Date Provider Diagnosis [address] [address] 10/24/2023 Barrington Cramer Skin disease L98.9 ; 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 ; Cellulitis of left lower limb L03.116 ; Dry gangrene I96 and Type 2 diabetes mellitus with diabetic polyneuropathy E11.[address] [address] 11/02/2023 Tono Susanne Skin ulcer of toe of left foot with fat layer exposed L97.522 ; Cellulitis of toe of left foot L03.032 and Type 2 diabetes mellitus with diabetic polyneuropathy E11.[address] [address] 11/07/2023 Barrington Cramer Skin disease L98.9 ; 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 ; Cellulitis of left lower limb L03.116 ; Dry gangrene I96 and Type 2 diabetes mellitus with diabetic polyneuropathy E11.[address] [address] 02/04/2024 Bryanna Garcia Skin ulcer of toe of left foot with fat layer exposed L97.522 ; Hammertoe of left foot M20.42 ; Type 2 diabetes mellitus with diabetic polyneuropathy E11.42 ; History of amputation Z89.9 and Peripheral vascular disease of extremity I73.[address] [address] 02/11/2024 Bryanna Garcia Hammer toe of left foot M20.42 ; Skin ulcer of toe of left foot with fat layer exposed L97.522 ; Type 2 diabetes mellitus with diabetic polyneuropathy E11.42 ; History of amputation Z89.9 and Peripheral vascular disease of extremity I73.[address] [address] 02/20/2024 Bryanna Garcia Hammer toe of left foot M20.42 ; Skin ulcer of toe of left foot with fat layer exposed L97.522 ; Type 2 diabetes mellitus with diabetic polyneuropathy E11.42 ; History of amputation Z89.9 ; Peripheral vascular disease of extremity I73.9 and Subacute osteomyelitis of left foot M86.[address] [address] 03/10/2024 Bryanna Garcia Skin ulcer of toe of left foot with fat layer exposed L97.522 ; Type 2 diabetes mellitus with diabetic polyneuropathy E11.42 ; History of amputation Z89.9 ; Peripheral vascular disease of extremity I73.9 and Subacute osteomyelitis of left foot M86.[address] [address] 03/17/2024 Bryanna Garcia Skin ulcer of toe of left foot with fat layer exposed L97.522 ; Type 2 diabetes mellitus with diabetic polyneuropathy E11.42 ; History of amputation Z89.9 ; Peripheral vascular disease of extremity I73.9 and Subacute osteomyelitis of left foot M86.[address] [address] 03/26/2024 Bryanna Garcia Skin ulcer of toe of left foot with fat layer exposed L97.522 ; Type 2 diabetes mellitus with diabetic polyneuropathy E11.42 ; History of amputation Z89.9 ; Peripheral vascular disease of extremity I73.9 and Subacute osteomyelitis of left foot M86.[address] [address] 04/22/2024 Tono Skinner Skin ulcer of toe of left foot with fat layer exposed L97.522 ; Type 2 diabetes mellitus with diabetic polyneuropathy E11.42 ; History of amputation Z89.9 and Peripheral vascular disease of extremity I73.[address] [address] 07/25/2024 Tono Skinner Type 2 diabetes mellitus with diabetic polyneuropathy E11.42 ; Tinea unguium B35.1 ; Other hammer toe(s) (acquired), right foot M20.41 and Other hammer toe(s) (acquired), left foot M20.42 [facility] [address] [address] 09/30/2024 Bryanna Garcia Type 2 diabetes mellitus with diabetic polyneuropathy E11.42 ; Tinea unguium B35.1 and Neuropathic ulcer of left foot with fat layer exposed L97.[address] [address] 10/24/[address] [address] 10/24/[address] [address] 11/02/2023 Tono Skinner [address] [address] 11/07/[address] [address] 11/13/[address] [address] 02/04/2024 Bryanna Garcia [address] [address] 02/21/2024 Bryanna Garcia Assessments Encounter Date Diagnosis [...] 09/30/2024 Tinea unguium (ICD-10 - B35.1) 09/30/2024 Type 2 diabetes mellitus with diabetic polyneuropathy (ICD-10 - E11.42) 09/30/2024 Neuropathic ulcer of left foot with fat layer exposed (ICD-10 - L97.522) Response to treatment Nonapplicable Patient Educated with: WOUND CARE INSTRUCTIONS. pdf (WOUND CARE INSTRUCTIONS. pdf) 03/26/2024 History of amputation (ICD-10 - Z89.9) [...] X ray : Foot, right 3V 12/13/2021 69831-SBLHLUV NAIL, 1-5 07/25/2024 24525-CDRWMWO SKIN/TISSUE 02/11/2024 68623-LULTHAP SKIN/TISSUE 02/20/2024 02764-NFWNKLA SKIN/TISSUE 03/10/2024 30154-YANCBDW SKIN/TISSUE 03/17/2024 64278-YTGDWVD SKIN/TISSUE 03/26/2024 56436-YCNUIRG SKIN/TISSUE 02/04/2024 74655-HVQBFGT SKIN/TISSUE 10/24/2023 03705-BQNUSPU SKIN/TISSUE 11/02/2023 52167-JNDLHXP SKIN/TISSUE 09/30/2024 91500-ZSFG SKIN LESIONS, OVER 4 07/26/19 P5416-AVIPCVRJ DYSTROPHIC NAILS ANY # X ray : Ankle, right 3V 12/13/2021 45692 - Tenotomy, open flexor 02/11/2024 Next Appt Details Provider Name:Bryanna Hand ian, 10/27/2024 03:30:00 PM, [address] [place], [address], Insurance Providers Payer Name Payer Address Payer Phone Subscriber Number Group Number Insured Name Patient Relationship to Insured Coverage Start Date Coverage End Date [facility] 65 Medicare Preferred [address] [place] [address] [phone] [id number] Lino Nayak Self - patient is the [...] angiogram spinal stenosis surgery 2019 bilateral TKR 0408-8623 Stent Hospitalization History Reason Date(Month/Year) infected foot, heart conditions 2024 Capsasin treatment x30 minutes/4x year [address] dosw 12/04/2021 Stent Right leg 09/13/2021 Stent Left leg 08/09/2021 Ultrasound Bilateral legs, angiogram Lef t leg 06/30/2021 Injection, [facility] 07/06/2021 MRI Left Foot 03/10/2021 Xray left Foot 03/04/2021
== END 2024-10-21 10:38 | disposition home or self-care (01) ==
LOC: HO.HCS 10:04
PROVIDERS: PCP Nurse Practitioner Family; Visit Provider Internal Medicine
DX: I48.0 Paroxysmal atrial fibrillation (principal); I25.10 Atherosclerotic heart disease of native coronary artery without angina pectoris; E66.01 Morbid (severe) obesity due to excess calories; I77.89 Other specified disorders of arteries and arterioles
CPT/HCPCS: 93010; 99214; G2211

== ENCOUNTER → 2024-10-21 10:03 | Outpatient (BNVA) | payer MEDICARE, SELFPAY | PROVIDERS: PCP Nurse Practitioner Family; Visit Provider Internal Medicine | DX: I48.0 Paroxysmal atrial fibrillation (principal); I25.10 Atherosclerotic heart disease of native coronary artery without angina pectoris; I77.89 Other specified disorders of arteries and arterioles; E66.01 Morbid (severe) obesity due to excess calories; R94.6 Abnormal results of thyroid function studies | CPT/HCPCS: 93005; 99212 ==

== ENCOUNTER 2024-11-28 09:04 | Outpatient (AMB) | payer MEDICARE, SELFPAY ==
--- OUTSIDE RECORDS SUMMARY | 2024-10-27 11:30 | XMS_ITS ---
Author Organization [facility] Address [address] [facility] [place] [address] Care Team Providers Care Fish Hatchery Worker Name Role Phone Jas Stone Primary Care Provider Unav Bryanna Chavarria Unavailable [phone] Allergies Allergen (clinical drug ingredient) Drug/Non Drug [...] Not-Taking Encounters Encounter Location Date Provider Diagnosis [facility] [place] [address] [place] [address] 10/27/2024 Bryanna Garcia Plan Of Treatment Next Appt Details Provider Name:Bryanna sosa, 01/19/2025 10:00:00 AM, [address] [place], [address], Progress Notes * Lino OLIVEIRA KDOB: [birth year] (69 yo M)Acc No.[id number]:10/27/2024 Progress Note Patient: Lino CONNOR Provider: Campos Garcia DPM :1955 A ge:69 Y S ex:Male Date:10/27/2024 Address:[address] [place] [address], [facility] Pcp:Jas Casarez NP-JERMAIN Subjective: * Chief [...] 0 10/27/2024 Generated for Merrick alvarado/Pepe/Jasmeet on: 11/28/2024 09:44 AM EDT
--- NOTE | 2024-11-28 09:08 | A.OFFVIS_ITS ---
Vital Signs 11/28/24 09:19 Height 5 ft 9 in Weight 256 lb 2 oz BMI 37.8 BP 184/84 H Blood Pressure Location Lt brachial Position Sitting Pulse 60 Pulse Source Pulse Oximeter Pulse Oximetry (%) 98 Oxygen Delivery Method Room Air Intake Visit Reasons: Pill Count Intake Note: Lino comes in today for a pill count to acetaminophen-codeine, patient should have 0 tablets and presents with 21.5 tablets which he last took about 3 weeks ago. Pain today 03/14 Helper Coordinator Required: No Accompanied by: Spouse Allergies NSAIDS (Non-Steroidal Anti-Inflamma Allergy (Severe, Verified 11/28/24 09:09) Anaphylaxis methadone Allergy (Intermediate, Verified 11/28/24 09:09) Vomiting HPI Comments Details: Patient presents today for a pill count. He is supposed to have #0 pills, in his possession has #21.5 pills. This demonstrates a responsible attitude in regards to the medication regimen. Patient reports bilateral foot pain without exacerbation due to diabetic neuropathy, rated as a 1/10. He has been using a Nevro spinal cord stimulator, , which he charges once a week due to a new setting that has reduced the frequency of charging from every other day. The patient reports that the device is functioning well, but adjustments may be needed if there is no effect from the current settings. The patient also manages chronic lower back pain with a Nevro spinal cord stimulator, experiencing continued benefit from its use. The patient has a history of atrial fibrillation and is scheduled for an ablation procedure next month. He is currently taking Eliquis twice daily and amiodarone, which will be discontinued post-ablation per patient. Patient reports atrial fibrillation was discovered during a previous medical evaluation related to a toe procedure, and it is suspected that the condition has been present for several years. He continues weight management with dietary adjustments, daily physical activity and medication regimen, including Ozempic, which he takes at a dose of two units without significant side effects except occasional sulfur burps. Patient denies any fever, chills, abdominal dyspnea, constipation, nausea, sedation, dizziness, bowel/bladder dysfunction or saddle anesthesia. Past Procedures: 05/02/23: Lumbar SCS Implant with Nevro-100% pain relief back/hip, 50% pain relief bilateral feet 02/28/23: Lumbar SCS Trial with Nevro-100% pain relief 12/06/21-12/05/22: Qutenza every 3 months-minimal pain relief [facility] Medical History Amputation of left great toe Cellulitis Dry gangrene Spinal cord stimulator status Polymyalgia rheumatica PAD (peripheral artery disease) Ascending aorta dilatation Sleep apnea Type 2 diabetes mellitus with peripheral neuropathy Diabetes mellitus due to underlying condition with diabetic neuropathy, without long-term current use of insulin Arterial insufficiency Iatrogenic Dennys's disease Morbid obesity Atherosclerotic cardiovascular disease Diabetic neuropathy associated with type 2 diabetes mellitus Seronegative rheumatoid arthritis Obesity (BMI 30-39.9) Vitamin D deficiency Diabetes type 2, controlled Osteopenia Adrenal 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 Painful total knee replacement, right Surgical History Status post amputation History of endarterectomy History of esophagogastroduodenoscopy (EGD) H/O colonoscopy Hx of coronary angiogram History of back surgery (~2017) History of knee replacement procedure of right knee History of knee replacement procedure of left knee Hx of cardiac cath Family History Father Angina pectoris Mother Stroke Social History Household Members: Spouse Housing: House Are you a primary acute care clinical nurse specialist to a significant other at home: No Do you presently have visiting nurse or other home services: No 75 years or older and lives alone: No Alcohol intake: former Year quit: 2023 Patient Tobacco Use Status: Former Tobacco user Years Smoked: 20 years ago e-Cigarette/Vaping Use: Never Used Second Hand Smoke Exposure: No Substance Use Type: Marijuana Advance Directives Date on File: 01/07/24 service: No Current occupational status: retired Cognitive needs: No Hearing needs: No Vision needs: No Review of Systems Const All systems reviewed & are unremarkable except as noted in HPI and below Physical Exam Vital Signs: Last Vital Signs Pulse 60 11/28/24 09:19 BP 184/84 H 11/28/24 09:19 Pulse Ox 98 11/28/24 09:19 Oxygen Delivery Method Room Air 11/28/24 09:19 BMI result Body Mass Index 37.8 General: Appears afebrile. Alert and oriented. Mood and affect appropriate. Follows and participates in conversation appropriately. Respiratory effort is unlabored. No cough. Able to transition from sit to stand unassisted. Ambulates with bilaterally normal heel strike and toe off. Psych Appearance: grossly normal Mental Status: mental status grossly normal Speech and movement: Normal speech and movement present Affect: normal affect Attitude: cooperative Thought process: Normal thought process present Thought content: Normal thought content present, suicidality (none), no hallucin ations and No Depressive thoughts present Insight: Good insight present (Psych) Judgement: Good judgement present (Psych) Assessment & Plan Assessment & Plan (1) Chronic painful diabetic neuropathy: Code(s): E11.40 - Type 2 diabetes mellitus with diabetic neuropathy, unspecified Category: Medical (2) Bilateral foot pain: Code(s): M79.671 - Pain in right foot; M79.672 - Pain in left foot Category: Medical (3) Chronic pain syndrome: Code(s): G89.4 - Chronic pain syndrome Category: Medical (4) Failed back syndrome of lumbar spine: Code(s): M96.1 - Postlaminectomy syndrome, not elsewhere classified Category: Medical (5) Non-healing ulcer of left foot: Code(s): L97.529 - Non-pressure chronic ulcer of other part of left foot with unspecified severity Category: Medical Plan Patient has shown accountability for his medication regimen and the pill count was accurate. There is no evidence of misuse, abuse or diversion at this time. MassPat reviewed. W Will hold off sending refill for Tylenol#3. Patient will notify our office when he has #5-10 tabs. Patient continues to use Nevro SCS device with good pain relief for back pain, but will will reach out to [facility] for program adjustments to optimize pain relief in both feet. All questions and concerns have been answered and patient agreed with the plan. Follow up in 2 months for pill count and sooner as needed. Coding Level of Care Code Est Pt Level 3 (57387) Complex EM visit Add On G2211 Diagnoses Chronic painful diabetic neuropathy E11.40 Bilateral foot pain M79.671; M79.672 Chronic pain syndrome G89.4 Failed back syndrome of lumbar spine M96.1 Non-healing ulcer of left foot L97.529
[2024-11-28 09:19] VITALS: BP 184/84; PULSE 60; O2SAT 98; BMI 37.8
--- OUTSIDE RECORDS SUMMARY | 2024-11-28 09:44 | XMS_ITS | Clinical Summary ---
Author Organization [facility] Address [address] [place] [address] Care Team Providers Care Electric Utility Lineworker Name Role Phone Jas Casarez Moy Primary [...] Date Diagnosed Date Resolved Date Atherosclerosis of [place] of extremities with gangrene, left leg 11/21/202311/04 Encounters Date Type Department Care Team Description 09/08/2024 11:30 AM EDT Follow-Up [facility] Building Vascular Surgery [address] [place] [address] Rail Signal Mechanic: Rosanna Lua, THERESE S/P insertion of iliac artery stent (Primary Dx); Atherosclerosis of artery of extremity with intermittent claudication (HCC); Diabetes 1.5, managed as type 2 (HCC) 09/08/2024 8:12 AM EDT - 09/08/2024 11:59 PM EDT Hospital Encounter [facility] ACC Vascular Lab [address] [place] [address] Aftercare following surgery of the circulatory system Discharge Disposition: Home or Self Care () 09/08/2024 8:12 AM EDT - 09/08/2024 11:59 PM EDT Hospital Encounter [facility] ACC Vascular Lab [address] [place] [address] Aftercare following surgery of the circulatory system Discharge Disposition: Home or Self Care () 09/08/2024 8:12 AM EDT - 09/08/2024 11:59 PM EDT Hospital Encounter [facility] Vascular Lab [address] [place] [address] Aftercare following surgery of the circulatory system Discharge Disposition: Home or Self Care () from Last 3 Months Immunizations Immunization Administration Dates Next Due Influenza, Trivalent, Adjuva nted, PF (FLUAD) 11/23/2023(Deferred: Patient Refused - defer outpatient) Family History Medical History Relation Name Comments Heart disease Father angina Stroke Mother Relation Name Status Comments Father Mother Social History Tobacco Use Types Packs/Day Years Used Date Smoking Tobacco: Former Cigarettes 1.5 25 1 974 1998 Smokeless Tobacco: Former Snuff, Chew Quit: 07/03/2021 Tobacco Cessation:Counseling Given: Not Answered Alcohol Use Standard Drinks/Week Comments Not Currently 0 (1 standard drink = 0.6 oz pure alcohol) none for last month and a half, previously drank 9 drinks per week [facility] Utilities Answer Date Recorded In [...] Info) Description 09/08/2025 1:00 PM EDT Appointment [facility] Vascular [facility] [address] [place] [address] 09/08/2025 1:45 PM EDT Appointment [facility]ascular [facility] [address] [place] [address] 09/08/2025 2:30 PM EDT Appointment [facility]ascular [facility] [address] [place] [address] 09/08/2025 3:40 PM EDT Follow-Up [facility] Building Vascular Surgery [address] [place] [address] Rail Signal Mechanic: Denton Zuniga MD [address] [place] [address] Health Maintenance Due Date Last Done Comments Cologuard 1953 Colon Cancer Screening 1953 Colonoscopy 1953 FOBT / Fit Test 1953 Hepatitis C Screening 1953 Sigmoidoscopy 1953 Ophthalmology Exam 1963 Urine Microalbumin 1963 Zoster Vaccines (1 of 2) 2003 DTaP,Tdap,and Td Vaccines (1 - Tdap) 11/28/2014 11/27/2014 Abdominal Aortic Aneurysm (AAA) Screening 2018 Alcohol/Substance Use Screening 03/05/2024 Depression Screening and Follow-Up 03/05/2024 Health Care Proxy Review 03/05/2024 Social Drivers of Health Annual Screening 03/05/2024 Hemoglobin A1C 05/21/2024 11/22/2023 COVID-19 Vaccine ( season) 2024 10/27/2020, 10/06/2020 Influenza Vaccine (#1) 2024 , 12/22/2018, 12/12/2017, Additional history exists Basic Metabolic Panel 11/22/2024 11/23/2023 , 11/22/2023, 11/21/2023, Additional history exists RSV Vaccine (60+ years old and patients) (1 - 1-dose 75+ series) 2028 Pneumococcal Vaccine: 50+ Years Completed 06/25/2024, 12/22/2018 Hepatitis B Vaccines Aged Out No long er eligible based on patient's age to complete this topic Medical Devices Implanted Type Area Weapons Officer Naval Activity Device Identifier Shelf Expiration Date Model / Serial / Lot System Closure And Repair Suture-Mediate d Perclose Prostyle - [id number] Implanted:Qty: 1 on 08/09/2021 by Denton Palacios MD at [facility] Implant Left: Leg [employer] 01/02/2023 [id number] / / System Closure And Repair Suture-Mediate d Perclose Prostyle - S0 - [id number] Implanted:Qty: 1 on 09/13/2021 by Denton Palacios MD at [facility] Implant Left: Leg [employer] [id number] 07/03/2023 [id number] / 0 / [id number] System Closure And Repair Suture-Mediate d Perclose Prostyle - S0 - [id number] Implanted:Qty: 1 on 11/13/2023 by Denton Palacios MD at [facility] Implant N/A: Groin [employer] [id number] 09/01/2025 [id number] / 0 / [id number] Patch Pericardium Bovine .[id number] Photofix - [id number] Implanted:Qty: 1 on 11/21/2023 by Denton Palacios MD at [facility] Implant Left: Arterial [employer] 06/08/2025 PFP0.8X8 / / [id number] Patch Pericardium Bovine .1ccj6et Photofix - [id number] Implanted:Qty: 1 on 11/21/2023 by Denton Palacios MD at [facility] Implant Left: Arterial [employer] 05/11/2025 PFP0.8X8 / / [id number] Stent System Vascular 7.2j850ne BiomimIQ Elite 3d - S0 - [id number] Implanted:Qty: 1 on 08/09/2021 by Denton Palacios MD at [facility] Stent Left: Leg [employer] [id number] 10/21/2022 618992 -1 1 / 0 / [id number] Stent System Vascular 6.3j118oh BiomWowo 3d - S0 - [id number] Implanted:Qty: 1 on 09/13/2021 by Denton Palacios MD at [facility] Stent Right: Leg [facility] [id number] 02/09/2023 866800 -1 0 / 0 / [id number] Stent Icast Covered [id number] - [id number] - [id number] Implanted:Qty: 1 on 11/13/2023 by Denton Palacios MD at [facility] Stent Left: Arterial pic5 SYSTEMS [facility] [id number] 12/13/2025 36410 / [id number] 0 / Procedures * Due to [place] state law, this organization might not be [...] to Health Maintenance Results * Due to [place] state law, this organization might not be [...] Artery, Distal: patent Left Tibioperoneal Trunk: patent us Raman Lin NP CV VASCULAR PROCEDURES Final Re sult * (ABNORMAL) Basic Metabolic Panel (11/23/2023 6:10 AM EDT) NA 138 135 - 145 mmol/L 11/23/2023 6:55 AM EDT [facility] K 3.9 3.5 - 5.3 mmol/L 11/23/2023 6:55 AM EDT [facility] Cl 105 98 - 107 mmol/L 11/23/2023 6:55 AM EDT [facility] CO2 24 24 - 32 mmol/L 11/23/2023 6:55 AM EDT [facility] BUN 10 7 - 23 mg/dL 11/23/2023 6:55 AM EDT [facility] Creatinine 0.70 0.60 - 1.30 mg/dL 11/23/2023 6:55 AM EDT [facility] Glucose 118(H) 65 - 99 mg/dL 11/23/2023 6:55 AM EDT [facility] Calcium 8.1(L) 8.6 - 10.5 mg/dL 11/23/2023 6:55 AM EDT [facility] Anion Gap 9 5 - 15 11/23/2023 6:55 AM EDT [facility] eGFR >90 >=60 mL/min/1. 73m2 11/23/2023 6:55 AM EDT [facility] Comment:The estimated glomer [...] MD LAB BLOOD ORDERABLES Mahnaz sutton Result [facility] [address] [place] [address], * (ABNORMAL) Hemoglobin A1c (11/22/2023 2:23 AM EDT) Hemoglobin A1C 6.2(H) <5.7 % of total Hgb 11/22/2023 10:11 AM EDT [facility] Comment: For someone without known diabetes, a [...] (MG/DL) 131 mg/dL 11/22/2023 10:11 AM EDT [facility] eAG (MMOL/L) 7.3 mmol/L 11/22/2023 10:11 AM EDT [facility] Comment: This test was performed on the Daniella elmer c503 platform. Effective 05/07/23, a change in test platforms from the Marino Wildlife Control Operator to the Daniella elmer c503 may have shifted HbA1c results compared to historical results. Based on laboratory validation testing conducted at [facility], the Daniella platform relative to the Marino [...] 2:23 AM EDT 11/22/2023 2:43 AM EDT Narrative [facility] - 11/22/2023 10:11 AM EDT [facility] Received Date: Dneton Palacios MD LAB BLOOD ORDERABLES Mahnaz l Result [facility] [address], [place] [address], [place] [phone] [facility] [address] [facility] [address], [place] [address], from Last 3 Months or Most Recently [...] 8:48 AM 09/06/2021 4:36 PM Care Teams Electric Utility Lineworker Relationship Specialty Start Date End Date Jas Casarez [address] [place] [address] PCP - General 07/19/21
--- OUTSIDE RECORDS SUMMARY | 2024-11-28 09:44 | XMS_ITS | Clinical Summary ---
Author Organization [facility] Address [address] [facility] [address] [place] [address] Phone Care Team Providers Care Supervisor Stave Cutting Name Role Phone Pcp, Unknown Primary Care [...] (2 of 2 - PPSV23) 12/23/2019 12/22/2018 INFLUENZA VACCINE (#1) 2024 9, 12/12/2017, 10/04/2016, Additional history exists COVID-19 VACCINE ( season) 2024 03/10/2021, 10/27/2020, 10/06/2020 Adult Td,Tdap Booster 11/27/2024 [...] topic Medical Devices Not on file Insurance MEDICARE PART A & B [facility] CARE MEDICARE REPLACEMENT MEDICARE PART A & B [facility] CARE MEDICARE REPLACEMENT MEDICARE PART A & B Member Subscriber Plan / Payer (Ef fective 2016-Present) Name:Lino Nayak Member ID:[id number] Relation to Subscriber:Self Name:Lnio Nayak Subscriber ID:[id number] Payer ID:[id number] Group ID:Not on file Type:Medicare Address: [employer] [address] [facility] ONE CARE MEDICARE REPLACEMENT MEDICARE PART A & B [facility] MEDICARE REPLACEMENT MEDICARE PART A & B [facility] [place] [id number] [facility] ONE CARE MEDICARE REPLACEMENT MEDICARE PART A & B [facility] CARE MEDICARE REPLACEMENT MEDICARE PART A & B [facility] ONE CARE MEDICARE REPLACEMENT [place] [id number] MEDICARE PART A & B [facility] ONE CARE MEDICARE REPLACEMENT MEDICARE PART A & B [facility] Care Teams Supervisor Stave Cutting Relationship Specialty Start Date End Date Pcp, Unknown PCP - General 04/19/21 Additional Source Comments The information contained in this document represents components of the legal health record. It is not the complete legal health record.[facility]
--- OUTSIDE RECORDS SUMMARY | 2024-11-28 09:44 | XMS_ITS | Patient Health Record ---
Author Organization [facility] Address [address] [place] [address] Care Team Providers Care Wardrobe Manager Name Role Phone GUILLERMO RICHTER Primary Care [...] Status Risk Notes Problem Colon cancer screening (305455936) Colon cancer screening (V76.51) Active confirmed Plan Of Treatment Future Test Test Name Order Date COLONOSCOPY 04/10/2013 Insurance Providers Payer Name Payer Address Payer Phone Subscriber Number Group Number Insured Name Patient Relationship to Insured Coverage Start Date Coverage End Date [facility] ([facility] REFERRA L) [address] [place] [address] [phone] [id number] STEVEN OLIVEIRA Self - patient is the insured Medical (General) History Medical History History ICD Code elevated Cholesterol colonoscopy 03/13/2003 Denies [place],DM,CVA,Lung disease,renal dise ase polymyalgia rheumatica arthritis Surgical History Surgery Date(Month/Year) left knee replacement 2008 right knee replacement 2007 carpal tunnel release
--- OUTSIDE RECORDS SUMMARY | 2024-11-28 09:44 | XMS_ITS | Encounter Summary ---
Author Organization [facility] Address [address] [place] [address] Phone Care Team Providers Care Assessment Counselor Name Role Phone Pcp, Unknown Primary Care Provider Unavailabl e Reason for Referral * Occupational Therapy (Routine) - Closed Specialty Diagnoses / Procedures Referred By Contjohn t Referred To Contact Occupational Therapy Diagnoses Encounter for rehabilitation System, Provider Not In, PhD [id number] [place] [address] Phone: tel: Referral ID Status Reason Start Date Expiration Date Visits Re quested Visits Authorized [id number] Closed 05/16/2017 05/16/2018 1 1 Encounter Details Date Type Department Care Team (Latest Contact Info) Description 05/16/2017 Transcribe Orders [facility] [address] [place] [address] Navjot Vieyra MD [address] [place] [address] Encounter for rehabilitation (Primary Dx) Social History Tobacco Use Types Packs/Day Years Used Date Smoking Tobacco: Never Assessed Sex and Gender Information Value Date Recorded Sex Assigned at Not on file Legal Sex Male 9:58 PM EDT Gender Identity Not on file Sexual Orientation Not on file documented as of this encounter Plan of Treatment Scheduled Referrals Name Type Priority Associated Diagnoses Orde r Schedule Ambulatory referral to [facility] Occupational Therapy Outpatient Referral Routine Encounter for rehabilitation Ordered: 05/16/2017 documented as of this encounter Visit Diagnoses Diagnosis Encounter for rehabilitation- Primary documented in this encounter Care Teams Assessment Counselor Relationship Specialty Start Date End Date Pcp, Unknown PCP - General 04/19/21 documented as of this encounter Additional Source Comments The information contained in this document represents components of the legal health record. It is not the complete legal health record.[facility]
--- OUTSIDE RECORDS SUMMARY | 2024-11-28 09:44 | XMS_ITS | Patient Health Record ---
Author Organization [facility] Address [address] [facility] [place] [address] Care Team Providers Care Icu Tech Name Role Phone Jas Stone Primary Care Provider UnaBryanna Angel Unavailable [phone] Tono Skinner Unavailable [phone] Allergies Allergen (clinical drug ingredient) Drug/Non Drug [...] every 8 hrs; Duration: 10 days Not-Taking Keflex 500 MG 1 capsule Orally every 12 hrs; Duration: 10 day(s) 10/24/2023 Not-Taking Amiodarone HCl 200 MG 1 tablet Orally Once a day Active Plavix Not-Taking Clindamycin HCl 3 capsules 3 times a day for 14 days Active Humira Pen 40 MG/0.4ML as directed Subcutaneous Not-Taking Acetaminophen-Codeine 300-30 MG 1 tablet as needed Orally every 6 hrs Active Venlafaxine HCl 75 MG 1 tablet with food Orally Once a day; Duration: 30 day(s) Not-Taking Eliquis Active Amoxicillin Not-Taki ng Effexor Active Aspirin 81 MG 1 tablet Orally Once a day; Duration: 30 day(s) Active Magnesium 400 MG as directed Orally Not-Taking Folic Acid 1 MG 1 tablet Orally Once a day; Duration: 30 day(s) Not-Taking Metoprolol Succinate ER Not-Taking Methotrexate 2.5 MG as directed Orally Not-Taking Tamsulosin HCl 0.4 MG 1 capsule Orally Once a day; Duration: 30 day(s) Active EPINEPHrine 0.3 MG/0.3ML as directed Injection Not-Taking Prednisone 10mg Active Hydrocortisone Not-T aking Extra Depth Diabetic Shoes with 3 Pair Custom heat-molded multi-density innersoles for 1 year Dx: 12/13/2021 Active Vitamin D Active Diclofenac Not-Takin g Extra Depth Orthopedic Shoes (1 Pair) with Customized Heat Molded Multidensity Innersoles (3 Pair) as directed Dx: NIDDM/Polyneuropath y (E11.42), Hammertoe Foot Deformity (M20.41,M20.42), Preulcerative Skin Lesion(s) (L85.1 07/25/2024 Active Custom Orthotics as directed A ctive Cardizem Not-Taking Ropinirole Hydrochloride Not-Taking EpiPen Active Naloxone HCl 4 MG/0.1ML as directed Nasally Not-Taki ng Olopatadine HCl 0.1 % 1 drop into affected eye Ophthalmic Twice a day Not-Taking Pravastatin Sodium 40 MG 1 tablet Orally Once a day; Duration: 30 day(s) Active Ketoconazole Not-Dipesh ing metFORMIN HCl ER 500 MG 1 tablet with evening meal Orally twice a day Active Lidocaine-Prilocaine 2.5-2.5 % as directed Externally Not-Taking Immunizations Vaccine Route Administration Date Status [...] Problem Acquired hammer toe of right foot (751968528840933 5) Other hammer toe(s) (acquired), right foot (M20.41) Active confirmed Problem Acquired hammer toe of left foot (731663952064685 3) Other hammer toe(s) (acquired), left foot (M20.42) Active confirmed Problem Polyneuropathy due to type 2 diabetes mellitus (397327666) Type 2 diabetes mellitus with diabetic polyneuropathy [...] Ordered Date Performed Result Body Sit e 69794-EQJVZRG SKIN/TISSUE 02/04/2024 N/A 11410-EBXUNAH SKIN/TISSUE 02/11/2024 N/A 41223 - Tenotomy, open flexor 02/11/2024 N/A 85198-SAJCTIG SKIN/TISSUE 02/20/2024 N/A 82322-KWULEYW SKIN/TISSUE 03/10/2024 N/A 88837-SUVMHWV SKIN/TISSUE 03/17/2024 N/A 70289-SSBQLRA SKIN/TISSUE 03/26/2024 N/A 80653-SENRLBD NAIL, 1-5 07/25/2024 N/A 92528-IMPV SKIN LESIONS, OVER 4 07/25/2024 N/A U3027-IJHDRABT DYSTROPHIC NAILS ANY # 07/25/2024 N/A 13153-SIPTTGQ SKIN/TISSUE 09/30/2024 N/A Encounters Encounter Location Date Provider Diagnosis [address] [address] 02/04/2024 Bryanna Garcia Skin ulcer of toe of left foot with fat layer exposed L97.522 ; Hammertoe of left foot M20.42 ; Type 2 diabetes mellitus with diabetic polyneuropathy E11.42 ; History of amputation Z89.9 and Peripheral vascular disease of extremity I73.[address] [address] 02/11/2024 Bryanna Garcia Hammer toe of left foot M20.42 ; Skin ulcer of toe of left foot with fat layer exposed L97.522 ; Type 2 diabetes mellitus with diabetic polyneuropathy E11.42 ; History of amputation Z89.9 and Peripheral vascular disease of extremity I73.[address] [address] 02/20/2024 Bryanna Garcia Hammer toe of left foot M20.42 ; Skin ulcer of toe of left foot with fat layer exposed L97.522 ; Type 2 diabetes mellitus with diabetic polyneuropathy E11.42 ; History of amputation Z89.9 ; Peripheral vascular disease of extremity I73.9 and Subacute osteomyelitis of left foot M86.[address] [address] 03/10/2024 Bryanna Garcia Skin ulcer of toe of left foot with fat layer exposed L97.522 ; Type 2 diabetes mellitus with diabetic polyneuropathy E11.42 ; History of amputation Z89.9 ; Peripheral vascular disease of extremity I73.9 and Subacute osteomyelitis of left foot M86.[address] [address] 03/17/2024 Bryanna Garcia Skin ulcer of toe of left foot with fat layer exposed L97.522 ; Type 2 diabetes mellitus with diabetic polyneuropathy E11.42 ; History of amputation Z89.9 ; Peripheral vascular disease of extremity I73.9 and Subacute osteomyelitis of left foot M86.[address] [address] 03/26/2024 Bryanna Garcia Skin ulcer of toe of left foot with fat layer exposed L97.522 ; Type 2 diabetes mellitus with diabetic polyneuropathy E11.42 ; History of amputation Z89.9 ; Peripheral vascular disease of extremity I73.9 and Subacute osteomyelitis of left foot M86.[address] [address] 04/22/2024 Tono Skinner Skin ulcer of toe of left foot with fat layer exposed L97.522 ; Type 2 diabetes mellitus with diabetic polyneuropathy E11.42 ; History of amputation Z89.9 and Peripheral vascular disease of extremity I73.[address] [address] 07/25/2024 Tono Skinner Type 2 diabetes mellitus with diabetic polyneuropathy E11.42 ; Tinea unguium B35.1 ; Other hammer toe(s) (acquired), right foot M20.41 and Other hammer toe(s) (acquired), left foot M20.42 [facility] [address] [facility] [address] [place] [address] 09/30/2024 Bryanna Garcia Type 2 diabetes mellitus with diabetic polyneuropathy E11.42 ; Tinea unguium B35.1 and Neuropathic ulcer of left foot with fat layer exposed L97.[address] [address] 02/04/2024 Bryanna Garcia [address] [address] 10/24/2024 Bryanna Garcia [address] [address] 02/21/2024 Bryanna Garcia Assessments Encounter Date Diagnosis (ICD Code) Assessment Notes Treatment Notes Treatment Clinical Notes Section Notes 02/04/2024 Hammertoe of left foot (ICD-10 - [...] vascular disease of extremity (ICD-10 - I73.9) 02/20/2024 Subacute osteomyelitis of left foot (ICD-10 - M86.272) 02/04/2024 Other Patient Educated with: WOUND CARE INSTRUCTIONS. pdf (WOUND CARE INSTRUCTIONS. pdf) Plan Of Treatment Pending Test Test Name Order Date X ray : Ankle, left 3V 12/13/2021 CBC 02/20/2024 ESR 02/20/2024 X ray : Foot, left 3V 12/13/2021 X ray : Foot, left 3V 11/02/2023 X ray : Foot, right 3V 12/13/2021 56683-IPXZDGC NAIL, 1-5 07/25/2024 85065-DJFPWKC SKIN/TISSUE 02/11/2024 08623-VXOQHPI SKIN/TISSUE 02/20/2024 06846-LXMIDHR SKIN/TISSUE 03/10/2024 03259-EDUIIAG SKIN/TISSUE 03/17/2024 33913-PYWUUCA SKIN/TISSUE 03/26/2024 21456-RRWJRJR SKIN/TISSUE 02/04/2024 61920-ROADYQK SKIN/TISSUE 10/24/2023 75242-MJFTQYX SKIN/TISSUE 11/02/2023 16674-FCXLUDI SKIN/TISSUE 09/30/2024 25630-ZRGU SKIN LESIONS, OVER 4 07/26/19 25 C7092-DRLBURVQ DYSTROPHIC NAILS ANY # X ray : Ankle, right 3V 12/13/2021 58718 - Tenotomy, open flexor 02/11/2024 Next Appt Details Provider Name:Bryanna Peace sosa, 01/19/2025 10:00:00 AM, [address] [place], [address], Insurance Providers Payer Name Payer Address Payer Phone Subscriber Number Group Number Insured Name Patient Relationship to Insured Coverage Start Date Coverage End Date BlueCare 65 Medicare Preferred [address] [place] [address] [phone] [id number] Lino Nayak Self - patient is the [...] angiogram spinal stenosis surgery 2019 bilateral [id number] [phone] Stent Hospitalization History Reason Date(Month/Year) infected foot, heart conditions 2024 Capsasin treatment x30 minutes/4x year 1 [address] dosw 12/04/2021 Stent Right leg 09/13/2021 Stent Left leg 08/09/2021 Ultrasound Bilateral legs, angiogram Lef t leg 06/30/2021 Injection, [facility] 07/06/2021 MRI Left Foot 03/10/2021 Xray left Foot 03/04/2021
== END 2024-11-28 09:41 | disposition home or self-care (01) ==
LOC: HO.PMC 09:05
PROVIDERS: PCP Nurse Practitioner Family; Visit Provider Nurse Practitioner Family
DX: E11.40 Type 2 diabetes mellitus with diabetic neuropathy, unspecified (principal); M79.671 Pain in right foot; M79.672 Pain in left foot; G89.4 Chronic pain syndrome; M96.1 Postlaminectomy syndrome, not elsewhere classified; L97.529 Non-pressure chronic ulcer of other part of left foot with unspecified severity
CPT/HCPCS: 99213; G2211

== ENCOUNTER 2024-11-28 09:04 | Outpatient (REF) | payer MEDICARE, SELFPAY ==
[2024-11-28 10:08] LABS: MANUAL DIFF FLAG NO
[2024-11-28 10:52] LABS: Hematocrit 41.3 % (42.0-52.0); Hemoglobin 13.7 g/dl (14.0-18.0); Imm Gran Abs Auto 0.04 X10*3/uL (0.00-0.03); Imm Gran Pct Auto 0.6 % (0.0-0.4); Lymphocytes Absolute Auto 0.8 X10*3/uL (1.2-4.9); Mean Corpuscular HGB Conc 33.2 g/dl (31.0-36.0); Mean Corpuscular Hemoglobin 31.5 pg (27.0-33.0); Mean Corpuscular Volume 94.9 fL (80.0-98.0); NRBC Abs Auto 0.000 X10*3/uL (0.0-0.012); NRBC Pct Auto 0.0 /100WBC (0.0-0.2); Platelet Count 175 X10*3/uL (160-400); Red Blood Count 4.35 X10*6/uL (4.60-5.80); White Blood Count 6.5 X10*3/uL (4.8-10.8)
[2024-11-28 11:23] LABS: Alanine Aminotransferase 20 U/L (0-40); Albumin Level 4.1 g/dL (3.5-5.0); Alkaline Phosphatase 59 U/L (39-117); Anion Gap 9 (12-20); Aspartate Amino Transferase 16 U/L (5-37); Blood Urea Nitrogen 13 mg/dL (9-16); Calcium 9.0 mg/dL (8.4-10.2); Carbon Dioxide 27 mmol/L (22-29); Chloride 110 mmol/L (96-108); Estimated Glomerular Filt Rate > 60; Potassium 4.3 mmol/L (3.3-5.1); Sodium 142 mmol/L (135-145); Total Protein 6.2 g/dL (6.5-8.0)
[2024-11-28 11:40] LABS: HBS Num1 0.24 mIU/mL (0-7.99); HBc Num1 0.04 S/CO (0.00-0.79); HBsAGNum1 0.34 S/CO (0.00-0.99); Hepatitis A Antibody IgM 0.13 Index (0-0.79); Hepatitis B Surface Antigen Negative (Negative); ~HepC Num1 0.04 S/CO (0.00-0.79); ~Hepatitis A Antibody IgM Nonreactive (Nonreactive); ~Hepatitis B Surface Antibody NONREACTIVE (Nonreactive); ~Hepatitis C Antibody Nonreactive (Nonreactive)
[2024-12-02 13:13] LABS: TS Negative Control PASSED; TS Panel A 1; TS Panel B 1; TS Positive Control PASSED; TSpotTB Negative (NEGATIVE)
== END 2024-11-28 09:05 | disposition home or self-care (01) ==
LOC: HO.LAB 09:04
PROVIDERS: Student in an Organized Health Care Education/Training Program; Absent Provider Student in an Organized Health Care Education/Training Program; PCP Nurse Practitioner Family; Visit Provider Nurse Practitioner Family
DX: E11.40 Type 2 diabetes mellitus with diabetic neuropathy, unspecified (principal); M06.00 Rheumatoid arthritis without rheumatoid factor, unspecified site; M96.1 Postlaminectomy syndrome, not elsewhere classified; M79.671 Pain in right foot; M79.672 Pain in left foot; G89.4 Chronic pain syndrome; L97.529 Non-pressure chronic ulcer of other part of left foot with unspecified severity
CPT/HCPCS: 36415; 80053; 85025; 85652; 86140; 86481; 86704; 86706; 86709; 86803; 87340; 99212

== ENCOUNTER 2024-12-24 14:00 | Outpatient (AMB) | payer MEDICARE, SELFPAY ==
--- OUTSIDE RECORDS SUMMARY | 2024-10-27 11:30 | XMS_ITS ---
Author Organization [facility] Address [address] [facility] [place] [address] Care Team Providers Care Cash Register Servicer Name Role Phone Jas Stone Primary Care Provider Unav Bryanna Chavarria Unavailable [phone] Allergies Allergen (clinical drug ingredient) Drug/Non Drug [...] Not-Taking Encounters Encounter Location Date Provider Diagnosis [facility] [place] [address] [place] [address] 10/27/2024 Bryanna Garcia Plan Of Treatment Next Appt Details Provider Name:Bryanna sosa, 01/19/2025 10:00:00 AM, [address] [place], [address], Progress Notes * Lino OLIVEIRA KDOB: [birth year] (69 yo M)Acc No.[id number]:10/27/2024 Progress Note Patient: Lino CONNOR Provider: Campos Garcia DPM :1955 A ge:69 Y S ex:Male Date:10/27/2024 Address:[address] [place] [address], [facility] [place] Pcp:Jas Casarez NP-JERMAIN Subjective: * Chief Complaints: [...] 0 10/27/2024 Generated for Merrick alvarado/Pepe/Jasmeet on: 08:06 PM EDT
[2024-12-24 14:04] VITALS: BP 134/60; PULSE 63; BMI 37.7
--- NOTE | 2024-12-24 14:04 | A.OFFVIS_ITS ---
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 Accompanied by: spouse Allergies NSAIDS (Non-Steroidal Anti-Inflamma Allergy (Severe, Verified 12/24/24 14:10) Anaphylaxis methadone Allergy (Intermediate, Verified 12/24/24 14:10) Vomiting Medication List - Last Reconciled 12/24/24 by Ari Orta MD acetaminophen-codeine 300-30 mg 1 tab PO BID PRN 30 days amiodarone 200 mg PO ONCE apixaban (Eliquis) 5 mg PO BID 90 days aspirin 81 mg PO DAILY blood sugar diagnostic (FreeStyle Test strips) Test blood sugar once a day cholecalciferol (vitamin D3) 50 mcg PO DAILY 90 days CPAP Machine/Device (CPAP) use daily NS [Diabetic shoes with 3 pair of custom orthotics wear daily] diclofenac sodium 1% 4 grams topical QID PRN 30 days epinephrine (EpiPen) 0.3 mg (0.3 mL) IM Q10M PRN ketoconazole 2% 1 appl topical 2XW metformin ER 500 mg PO DAILY 90 days oxybutynin chloride ER 10 mg PO DAILY 90 days pravastatin 40 mg PO DAILY prednisone 5 mg PO BID 90 days ropinirole 1 mg PO BEDTIME semaglutide (Ozempic) 2 mg (0.75 mL) subcut QWEEK tamsulosin 0.4 mg PO DAILY 90 days venlafaxine ER 150 mg PO DAILY 90 days HPI Comments Details: Lino returns for follow-up regarding his cardiac issues including atrial fibrillation as well as coronary artery disease. He has morbid obesity, polymyalgia rheumatica, rheumatoid arthritis on chronic steroids. In the past, he underwent cardiac workup due to shortness of breath. He had nonobstructive disease in the LAD which is being treated medically. In 2023, he had vascular surgery at [facility]. Per notes, left-sided femoral endarterectomy/great toe amputation. In that setting, found to have atrial fibrillation. More recently, he underwent Holter monitor which showed a high atrial fibrillation burden. After that, he was put on amiodarone. Atrial fibrillation burden has come down but it is still significant. He was getting short of breath with any form of activity. However, suspect more so it is from deconditioning as opposed to atrial fibrillation as he feels short of breath even when he is in sinus rhythm. Any case, he was referred to EP for further evaluation and he actually un derwent atrial fibrillation ablation last week. After that, he states that he is actually feeling much better. Today, he is in sinus rhythm by EKG. COUNTS INCLUDE 234 BEDS AT THE [facility] Medical History Amputation of left great toe Cellulitis Dry gangrene Spinal cord stimulator status Polymyalgia rheumatica PAD (peripheral artery disease) Ascending aorta dilatation Sleep apnea Type 2 diabetes mellitus with peripheral neuropathy Diabetes mellitus due to underlying condition with diabetic neuropathy, without long-term current use of insulin Arterial insufficiency Iatrogenic Dennys's disease Morbid obesity Atherosclerotic cardiovascular disease Diabetic neuropathy associated with type 2 diabetes mellitus Seronegative rheumatoid arthritis Obesity (BMI 30-39.9) Vitamin D deficiency Diabetes type 2, controlled Osteopenia Adrenal 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 Painful total knee replacement, right Surgical History Status post amputation History of endarterectomy History of esophagogastroduodenoscopy (EGD) H/O colonoscopy Hx of coronary angiogram History of back surgery (~2017) History of knee replacement procedure of right knee History of knee replacement procedure of left knee Hx of cardiac cath Family History Father Angina pectoris Mother Stroke Social History Household Members: Spouse Housing: House Are you a primary manager urgent care to a significant other at home: No Do you presently have visiting nurse or other home services: No 75 years or older and lives alone: No Alcohol intake: former Year quit: 2023 Patient Tobacco Use Status: Former Tobacco user Years Smoked: 20 years ago e-Cigarette/Vaping Use: Never Used Second Hand Smoke Exposure: No Substance Use Type: Marijuana Advance Directives Date on File: 01/07/24 service: No Current occupational status: retired Cognitive needs: No Hearing needs: No Vision needs: No Review of Systems Const Denies daytime sleepiness, Denies difficulty sleeping, Denies snoring, Denies stops breathing during sleep and Denies weakness Card Denies chest pain, Denies rapid heart rate, Denies irregular heart rhythm, Denies claudication, Denies leg edema, Denies lightheadedness, Denies palpitations, Denies dyspnea, Denies dyspnea on exertion, Denies orthopnea, Denies paroxysmal nocturnal dyspnea and Denies slow heart rate Resp Denies cough, Denies dyspnea, Denies dyspnea on exertion and Denies snoring GI Reports no additional complaints, Denies hematochezia, Denies change in stool character and Denies dyspepsia Musc Denies abnormal gait, Denies muscle weakness and Denies numbness Neuro Denies abnormal gait, Denies numbness and Denies weakness Endo Denies palpitations Physical Exam Vital Signs: Last Vital Signs Pulse 63 12/24/24 14:04 BP 134/60 12/24/24 14:04 BMI result Body Mass Index 37.7 Const General: comfortable and no acute distress Orientation/consciousness: patient oriented x3 HEENT Other: Unremarkable Head: Yes normal to inspection Neck Neck: Yes normal visual inspection Chest Chest palpation & inspection: normal inspection of the chest Resp Auscultation: clear to auscultation bilaterally Cardio Palpation: normal PMI Heart sounds: S1 normal heart sound present, S2 normal heart sound present, no gallops, no murmurs and no rubs GI Palpation (GI): Soft to palpation Back/Spine/Pelvis Other: unremarkable Skin General skin exam: no rashes or lesions noted Neuro General: patient oriented x3 Extrem General: Yes normal to inspection Psych Mental Status: mental status grossly normal Office Procedures EKG Details: EKG with sinus rhythm at 63/Min; rightward axis; no ischemic changes; [place]. [address]-[id number], Complete Assessment & Plan Assessment & Plan (1) PAF (paroxysmal atrial fibrillation): Code(s): I48.0 - Paroxysmal atrial fibrillation Category: Medical Plan: Most recent Holter had atrial fibrillation burden of 18% in spite of Amiodarone. Currently, he is status post ablation from last week. He can stay on Amiodarone for 2 months per EP recommendations and then stop it. He was also on Diltiazem in the past but had to stop because of bradycardia while in sinus rhythm which was causing some other symptoms. Continue anticoagulation. In the echocardiogram from 2023, LVEF 55% with normal biatrial size. Continue anticoagulation. (2) Atherosclerotic cardiovascular disease: Code(s): I25.10 - Atherosclerotic heart disease of seminole coronary artery without angina pectoris Category: Medical Plan: Cardiac catheterization from 2019 showed 50% stenosis in the mid LAD, but IFR itself was not significant. Minor irregularities in the circumflex and right coronary arteries and left main was normal. Unremarkable perfusion imaging from 02/2023. Clinically, no overt symptoms. Mainly risk factor modification. Continue statins. He is only on low dose of Pravastatin as he cannot take high dose Atorvastatin. Acceptable lipids. (3) Morbid obesity: Code(s): E66.01 - Morbid (severe) obesity due to excess calories Category: Medical Plan: Long-term issue and has been this way without much changes. (4) Ascending aorta enlargement: Code(s): I77.89 - Other specified disorders of arteries and arterioles Category: Medical Plan: Ascending aortic size 4 cm on echocardiogram. Prior to this, 4.4 cm. We can follow this on echocardiogram. Plan Discussion Notes I discussed with the patient the success of the ablation procedure and the importance of continuing amiodarone for 60 days and Eliquis indefinitely due to stroke risk. We also talked about the need for a follow-up appointment in 5-6 months to evaluate the procedure's effectiveness. I advised the patient to avoid strenuous activities like snow shoveling. Patient was informed and verbally consented to the use of an ambient scribe for clinic note documentation during this visit. Patient Instructions: - Continue taking amiodarone for approximately 2 months after ablation. - Continue taking Eliquis indefinitely. - Avoid strenuous activities like snow shoveling. Coding Level of Care Code Est Pt Level 4 (40098) Complex EM visit Add On G2211 Diagnoses PAF (paroxysmal atrial fibrillation) I48.0 Atherosclerotic cardiovascular disease I25.10 Morbid obesity E66.01 Ascending aorta enlargement I77.89 CPT Codes EKG - CPT: 31742-[id number], Complete ([id number])
--- OUTSIDE RECORDS SUMMARY | 2024-12-24 20:06 | XMS_ITS | Clinical Summary ---
Author Organization [facility] Address [address] [place] [address] Phone Care Team Providers Care Wall Insulation Sprayer Name Role Phone Pcp, Unknown Primary Care [...] file Insurance MEDICARE PART A & B [facility] CARE MEDICARE REPLACEMENT MEDICARE PART A & B [facility] CARE MEDICARE REPLACEMENT MEDICARE PART A & B Member Subscriber Plan / Payer (Ef fective 2016-Present) Name:Lino Nayak Member ID:[id number] Relation to Subscriber:Self Name:Lino Nayak Subscriber ID:[id number] Payer ID:[id number] Group ID:Not on file Type:Medicare Address: fypio [address] [facility] C[facility] MEDICARE REPLACEMENT MEDICARE PART A & B [facility] MEDICARE REPLACEMENT MEDICARE PART A & B [facility] [place] [address] [facility] MEDICARE REPLACEMENT MEDICARE PART A & B [facility] CARE MEDICARE REPLACEMENT MEDICARE PART A & [facility]ARE MEDICARE REPLACEMENT [place] [id number] MEDICARE PART A & B [facility] CARE MEDICARE REPLACEMENT MEDICARE PART A & B [facility] Care Teams Wall Insulation Sprayer Relationship Specialty Start Date End Date Pcp, Unknown PCP - General 04/19/21 Additional Source Comments The information contained in this document represents components of the legal health record. It is not the complete legal health record.[facility]
--- OUTSIDE RECORDS SUMMARY | 2024-12-24 20:06 | XMS_ITS | Encounter Summary ---
Author Organization [facility] Address [address] [place] [address] Phone Care Team Providers Care Verifying Machine Operator Name Role Phone Pcp, Unknown Primary Care Provider Unavailabl e Reason for Referral * Occupational Therapy (Routine) - Closed Specialty Diagnoses / Procedures Referred By Contjohn t Referred To Contact Occupational Therapy Diagnoses Encounter for rehabilitation System, Provider Not In, PhD [id number] [place] [address] Phone: tel: Referral ID Status Reason Start Date Expiration Date Visits Re quested Visits Authorized [id number] Closed 05/16/2017 05/16/2018 1 1 Encounter Details Date Type Department Care Team (Latest Contact Info) Description 05/16/2017 Transcribe Orders [facility] [address] [place] [address] Navjot Vieyra MD [address] [place] [address] Encounter for rehabilitation (Primary Dx) Social History [...] Primary documented in this encounter Care Teams Verifying Machine Operator Relationship Specialty Start Date End Date Pcp, Unknown PCP - General 04/19/21 documented as of this encounter Additional Source Comments The information contained in this document represents components of the legal health record. It is not the complete legal health record.[facility]
--- OUTSIDE RECORDS SUMMARY | 2024-12-24 20:07 | XMS_ITS | Clinical Summary ---
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, left [...] drank 9 drinks per week [facility] Utilities Answer Date Recorded In the past 12 months has e [employer], [employer], oil, or water [employer] threatened to shut off services in your [...] Info) Description 09/08/2025 1:00 PM EDT Appointment [facility] [address] [place] [address] 09/08/2025 1:45 PM EDT Appointment [facility] [address] [place] [address] 09/08/2025 2:30 PM EDT Appointment [facility] [address] [place] [address] 09/08/2025 3:40 PM EDT Follow-Up [facility] Vascular Surgery [address] [place] [address] Compressor Operator: Denton Zuniga MD [address] [place] [address] Health Maintenance Due Date Last Done Comments [...] this topic Medical Devices Implanted Type Area Test Deskman Device Identifier Shelf Expiration Date Model / Serial / Lot System Closure And Repair Suture-Mediate d Perclose Prostyle - [id number] Implanted:Qty: 1 on 08/09/2021 by Denton Palacios MD at [facility] Implant Left: Leg [employer] 01/02/2023 [id number] / / System Closure And Repair Suture-Mediate d Perclose Prostyle - S0 - [id number] Implanted:Qty: 1 on 09/13/2021 by Denton Palacios MD at [facility] Implant Left: Leg [employer] [id number] 07/03/2023 24629-58 / 0 / [id number] System Closure And Repair Suture-Mediate d Perclose Prostyle - S0 - [id number] Implanted:Qty: 1 on 11/13/2023 by Denton Palacios MD at [facility] Implant N/A: Groin [employer] [id number] 09/01/2025 71479-40 / 0 / [id number] Patch Pericardium Bovine .3rlz5pf Photofix - [id number] Implanted:Qty: 1 on 11/21/2023 by Denton Palacios MD at [facility] Implant Left: Arterial [employer] 06/08/2025 PFP0.8X8 / / [id number] Patch Pericardium Bovine .3sgt7bv Photofix - [id number] Implanted:Qty: 1 on 11/21/2023 by Denton Palacios MD at [facility] Implant Left: Arterial [employer] 05/11/2025 PFP0.8X8 / / [id number] Stent System Vascular 7.0b583yc Biomimics 3d - S0 - [id number] Implanted:Qty: 1 on 08/09/2021 by Denton Palacios MD at [facility] Stent Left: Leg [facility] [id number] 10/21/2022 148840 -1 1 / 0 / [id number] Stent System Vascular 6.6t578hg Biomimics 3d - S0 - [id number] Implanted:Qty: 1 on 09/13/2021 by Denton Palacios MD at [facility] Stent Right: Leg [facility] MED[facility] [id number] 02/09/2023 [id number] -1 0 / 0 / [id number] Stent Icast Covered [id number] - [id number] - [id number] Implanted:Qty: 1 on 11/13/2023 by Denton Palacios MD at [facility] Stent Left: Arterial [employer] [facility] [id number] 12/13/2025 [id number] / [id number] / Procedures * Due to [place] state law, this organization might not be sharing negative HIV tests. Procedure Name Priority Date/Time Associated Diagnosis Comments BASIC METABOLIC PANEL Routine 11/23/2023 6:10 AM EDT HEMOGLOBIN A1C Routine 11/22/2023 2:23 AM EDT from Last 3 Months or Most Recently Relevant to Health Maintenance Results * Due to [place] state law, this organization might not be sharing negative HIV tests. * (ABNORMAL) Basic Metabolic Panel (11/23/2023 6:10 AM EDT) NA 138 135 - 145 mmol/L 11/23/2023 6:55 AM EDT [facility] K 3.9 3.5 - 5.3 mmol/L 11/23/2023 6:55 AM EDT [facility] Cl 105 98 - 107 mmol/L 11/23/2023 6:55 AM EDT [facility] CO2 24 24 - 32 mmol/L 11/23/2023 6:55 AM EDT [facility] BUN 10 7 - 23 mg/dL 11/23/2023 6:55 AM EDT [facility] Creatinine 0.70 0.60 - 1.30 mg/dL 11/23/2023 6:55 AM EDT [facility] Glucose 118(H) 65 - 99 mg/dL 11/23/2023 6:55 AM EDT [facility] Calcium 8.1(L) 8.6 - 10.5 mg/dL 11/23/2023 6:55 AM EDT [facility] Anion Gap 9 5 - 15 11/23/2023 6:55 AM EDT [facility] eGFR >90 >=60 mL/min/1. 73m2 11/23/2023 6:55 AM EDT [facility] Comment:The estimated glomer ular filtration rate (eGFR) is calculated using a new formula developed by the NKF-ASN task force to eliminate race-based correction factors. The new formula uses serum/plasma creatinine, age, and gender to determine eGFR. A value below 60mls/min might indicate kidney disease and will be flagged. For additional information, see Dick et al, Am J Kidney Dis. 2021;79(2):268- 288, A Unifying Approach for GFR estimation: Recommendations of the NKF-ASN Task Force on Reassessing the Inclusion of Race in Diagnosing Kidney Disease . Blood Structure of peripheral vein / Unknown Venipuncture / Unknown 11/23/2023 6:10 AM EDT 11/23/2023 6:21 AM EDT us Denton Palacios MD LAB BLOOD ORDERABLES Mahnaz sutton Result [facility] [address] [place] [address], * (ABNORMAL) Hemoglobin A1c (11/22/2023 2:23 AM EDT) Hemoglobin A1C 6.2(H) <5.7 % of total Hgb 11/22/2023 10:11 AM EDT [facility] Comment: For someone without known diabetes, a [...] (MG/DL) 131 mg/dL 11/22/2023 10:11 AM EDT [facility] e[facility] (MMOL/L) 7.3 mmol/L 11/22/2023 10:11 AM EDT [facility] Comment: This test was performed on the Daniella elmer c503 platform. Effective 05/07/23, a change in test platforms from the [employer] Printer Apprentice to the Daniella elmer c503 may have shifted HbA1c results compared to historical results. Based on laboratory validation testing conducted at [facility], the Daniella platform relative to the Marino [...] AM EDT 11/22/2023 2:43 AM EDT Narrative [facility] - 11/22/2023 10:11 AM EDT [facility] Received Date:[id number] Denton Palacios MD LAB BLOOD ORDERABLES Mahnaz l Result [facility] [address] [facility] [address], [place] [address], [facility] [address] [facility] [address], [place] [address], from Last 3 Months or Most Recently Relevant to Health Maintenance Insurance [facility] MCR REPLACE PPO Advance Directives [...] 8:48 AM 09/06/2021 4:36 PM Care Teams Gse Mechanic Relationship Specialty Start Date End Date Jas Casarez [address] [place] [address] PCP - General 07/19/21
--- OUTSIDE RECORDS SUMMARY | 2024-12-24 20:07 | XMS_ITS | Patient Health Record ---
Author Organization [facility] Address [address] [place] [address] Care Team Providers Care Structural Steel Erection Supervisor Name Role Phone GUILLERMO RICHTER Primary Care Provider Cachorro Conway Jr [phone] Reason For Referral No Information Medications Medication SIG (Take, Route, Fr equency, Duration) Notes Start Date End Date Status Percocet 5/325mg Act mely Flomax 0.4mg Active Plaquenil 200mg Acti ve Effexor XR 75mg Acti ve predniSONE 5mg Activ e MoviPrep 100 GM as directed before c olonoscopy Orally; Duration: 1 dose 04/10/2013 03/05/2024 Active Problems Problem Type SNOMED Code ICD Code Onset Dates Problem Status W/U Status Risk Notes Problem Colon cancer screening (761608578) Colon cancer screening (V76.51) Active confirmed Plan Of Treatment Future Test Test Name Order Date COLONOSCOPY 04/10/2013 Insurance Providers Payer Name Payer Address Payer Phone Subscriber Number Group Number Insured Name Patient Relationship to Insured Coverage Start Date Coverage End Date [facility] ([facility]ED[facility] REFERRA L) [address] [place] [address] [phone] [id number] STEVEN OLIVEIRA Self - patient is the insured Medical (General) History Medical History History ICD Code elevated Cholesterol colonoscopy 03/13/2003 Denies PA,DM,CVA,Lung disease,renal dise ase polymyalgia rheumatica arthritis Surgical History Surgery Date(Month/Year) left knee replacement 2008 right knee replacement 2007 carpal tunnel release
--- OUTSIDE RECORDS SUMMARY | 2024-12-24 20:07 | XMS_ITS | Patient Health Record ---
Author Organization [facility] Address [address] [place] [address] Care Team Providers Care [place] Wellness Coordinator Name Role Phone Jas Stone Primary Care Provider UnaBryanna Angel Unavailable [phone] Tono Skinner Unavailable [phone] Allergies Allergen (clinical drug ingredient) Drug/Non Drug Allergy documented on EMR Reaction Allergy Type Onset Date Status Motrin anaphylaxis Drug Allergy Activ e ibuprofen Ibuprofen anaphylaxis Drug Allergy Activ e methadone Methadone vomiting Drug Allergy Active Non-steroidal anti-inflammatory agent (FN) NSAIDs anaphylaxis Drug Allergy Active Results Component Value Reference Range Notes HEMOGLOBIN A1C (GLYCOHEMOGLO BIN) Reviewed date:03/27/2024 02:26:20 [...] Problem Acquired hammer toe of right foot (120190924541635 5) Other hammer toe(s) (acquired), right foot (M20.41) Active confirmed Problem Acquired hammer toe of left foot (895315274180885 3) Other hammer toe(s) (acquired), left foot (M20.42) Active confirmed Problem Polyneuropathy due to type 2 diabetes mellitus (829032896) Type 2 diabetes mellitus with diabetic polyneuropathy [...] Ordered Date Performed Result Body Sit e 59401-KYUELUG SKIN/TISSUE 02/04/2024 N/A 27449-IRTHFHX SKIN/TISSUE 02/11/2024 N/A 07239 - Tenotomy, open flexor 02/11/2024 N/A 87746-NIFKSXE SKIN/TISSUE 02/20/2024 N/A 46963-ZVUSPBQ SKIN/TISSUE 03/10/2024 N/A 52114-FUFNCMF SKIN/TISSUE 03/17/2024 N/A 21425-EHEOAEY SKIN/TISSUE 03/26/2024 N/A 14387-FTYGYIW NAIL, 1-5 07/25/2024 N/A 24806-TYSE SKIN LESIONS, OVER 4 07/25/2024 N/A F7844-LPUZPBSD DYSTROPHIC NAILS ANY # 07/25/2024 N/A 68155-KQOKJUG SKIN/TISSUE 09/30/2024 N/A Encounters Encounter Location Date Provider Diagnosis [facility] [address] 02/04/2024 Bryanna Garcia Skin ulcer of toe of left foot with fat layer exposed L97.522 ; Hammertoe of left foot M20.42 ; Type 2 diabetes mellitus with diabetic polyneuropathy E11.42 ; History of amputation Z89.9 and Peripheral vascular disease of extremity I73.[address] [address] 02/11/2024 Bryanna Nolascoaker Hammer toe of left foot M20.42 ; Skin ulcer of toe of left foot with fat layer exposed L97.522 ; Type 2 diabetes mellitus with diabetic polyneuropathy E11.42 ; History of amputation Z89.9 and Peripheral vascular disease of extremity I73.[address] [address] 02/20/2024 Bryanna Garcia Hammer toe of left foot M20.42 ; Skin ulcer of toe of left foot with fat layer exposed L97.522 ; Type 2 diabetes mellitus with diabetic polyneuropathy E11.42 ; History of amputation Z89.9 ; Peripheral vascular disease of extremity I73.9 and Subacute osteomyelitis of left foot M86.[address] [address] 03/10/2024 Bryanna Garcia Skin ulcer of toe of left foot with fat layer exposed L97.522 ; Type 2 diabetes mellitus with diabetic polyneuropathy E11.42 ; History of amputation Z89.9 ; Peripheral vascular disease of extremity I73.9 and Subacute osteomyelitis of left foot M86.[address] [address] 03/17/2024 Bryanna Garcia Skin ulcer of toe of left foot with fat layer exposed L97.522 ; Type 2 diabetes mellitus with diabetic polyneuropathy E11.42 ; History of amputation Z89.9 ; Peripheral vascular disease of extremity I73.9 and Subacute osteomyelitis of left foot M86.[address] [address] 03/26/2024 Bryanna Garcia Skin ulcer of toe of left foot with fat layer exposed L97.522 ; Type 2 diabetes mellitus with diabetic polyneuropathy E11.42 ; History of amputation Z89.9 ; Peripheral vascular disease of extremity I73.9 and Subacute osteomyelitis of left foot M86.[address] [address] 04/22/2024 Tono Skinner Skin ulcer of toe of left foot with fat layer exposed L97.522 ; Type 2 diabetes mellitus with diabetic polyneuropathy E11.42 ; History of amputation Z89.9 and Peripheral vascular disease of extremity I73.[address] [address] 07/25/2024 Tono Skinner Type 2 diabetes mellitus with diabetic polyneuropathy E11.42 ; Tinea unguium B35.1 ; Other hammer toe(s) (acquired), right foot M20.41 and Other hammer toe(s) (acquired), left foot M20.42 [facility] [address] [address] 09/30/2024 Bryanna Garcia Type 2 diabetes mellitus with diabetic polyneuropathy E11.42 ; Tinea unguium B35.1 and Neuropathic ulcer of left foot with fat layer exposed L97.[address] [address] 02/04/2024 Bryanna Garcia [address] [address] 10/24/2024 Bryanna Garcia [address] [address] 02/21/2024 Bryanna Garcia Assessments Encounter Date Diagnosis [...] X ray : Foot, right 3V 12/13/2021 43999-TQAMBZC NAIL, 1-5 07/25/2024 40549-JNUVFBW SKIN/TISSUE 02/11/2024 95168-WNCJAPF SKIN/TISSUE 02/20/2024 09566-MQQJJVE SKIN/TISSUE 03/10/2024 35452-YMFKLMR SKIN/TISSUE 03/17/2024 80606-GQMYPXB SKIN/TISSUE 03/26/2024 86352-GDSFCVZ SKIN/TISSUE 02/04/2024 33859-LGMYQXB SKIN/TISSUE 10/24/2023 34702-VRRLXRD SKIN/TISSUE 11/02/2023 16975-IMGUPCP SKIN/TISSUE 09/30/2024 02581-OQMZ SKIN LESIONS, OVER 4 07/26/19 25 O1252-TUCSDZWM DYSTROPHIC NAILS ANY # X ray : Ankle, right 3V 12/13/2021 82174 - Tenotomy, open flexor 02/11/2024 Next Appt Details Provider Name:Bryanna Hand ian, 01/19/2025 10:00:00 AM, [address] [place] [address], [phone], Insurance Providers Payer Name Payer Address Payer Phone Subscriber Number Group Number Insured Name Patient Relationship to Insured Coverage Start Date Coverage End Date [employer] 65 Medicare Preferred [address] [place] [address] [id number] Lino Nayak Self - patient is the [...] angiogram spinal stenosis surgery 2019 bilateral TKR [id number] Stent Hospitalization History Reason Date(Month/Year) infected foot, heart conditions 2024 Capsasin treatment x30 minutes/4x year [address] dosw 12/04/2021 Stent Right leg 09/13/2021 Stent Left leg 08/09/2021 Ultrasound Bilateral legs, angiogram Lef t leg 06/30/2021 Injection, [facility] 07/06/2021 MRI Left Foot 03/10/2021 Xray left Foot 03/04/2021
== END 2024-12-24 14:44 | disposition home or self-care (01) ==
LOC: HO.HCS 14:01
PROVIDERS: PCP Nurse Practitioner Family; Visit Provider Internal Medicine
DX: I48.0 Paroxysmal atrial fibrillation (principal); I25.10 Atherosclerotic heart disease of native coronary artery without angina pectoris; E66.01 Morbid (severe) obesity due to excess calories; I77.89 Other specified disorders of arteries and arterioles
CPT/HCPCS: 93010; 99214; G2211

== ENCOUNTER → 2024-12-24 14:00 | Outpatient (BNVA) | payer MEDICARE, SELFPAY | PROVIDERS: PCP Nurse Practitioner Family; Visit Provider Internal Medicine | DX: I48.0 Paroxysmal atrial fibrillation (principal); I25.10 Atherosclerotic heart disease of native coronary artery without angina pectoris; E66.01 Morbid (severe) obesity due to excess calories; I77.89 Other specified disorders of arteries and arterioles | CPT/HCPCS: 93005; 99212 ==

== ENCOUNTER 2025-01-02 07:53 | Outpatient (AMB) | payer MEDICARE, SELFPAY ==
--- OUTSIDE RECORDS SUMMARY | 2024-10-27 11:30 | XMS_ITS ---
Author Organization [facility] Address [address] [facility] [place] [address] Care Team Providers Care Electrician Sound Name Role Phone Jas Stone Primary Care Provider Unav Bryanna Chavarria Unavailable [phone] Allergies Allergen (clinical drug ingredient) Drug/Non Drug [...] Not-Taking Encounters Encounter Location Date Provider Diagnosis [facility] [place] [address] [place] [address] 10/27/2024 Bryanna Garcia Plan Of Treatment Next Appt Details Provider Name:Bryanna sosa, 01/19/2025 10:00:00 AM, [address] [place], [phone], Progress Notes * Lino OLIVEIRA KDOB: [birth year] (69 yo M)Acc No.[id number]:10/27/2024 Progress Note Patient: Lino CONNOR Provider: Campos Garcia DPM :1955 A ge:69 Y S ex:Male Date:10/27/2024 Address:[address] [place] [address], [facility] Pcp:Jas Casarez NP-JERMAIN Subjective: * Chief Complaints: * * Medical [...] 0 10/27/2024 Generated for Merrick alvarado/Pepe/Jasmeet on: 07:55 AM EDT
--- OUTSIDE RECORDS SUMMARY | 2024-12-29 06:30 | XMS_ITS ---
Author Organization [facility] Address [address] [place] [address] Care Team Providers Care Accountant Tax Name Role Phone Jas Stone Primary Care Provider Unav Bryanna Chavarria Unavailable [phone] Allergies Allergen (clinical drug ingredient) Drug/Non Drug Allergy documented on EMR Reaction Allergy Type Onset Date Status Motrin anaphylaxis Drug Allergy Activ e ibuprofen Ibuprofen anaphylaxis Drug Allergy Activ e methadone Methadone vomiting Drug Allergy Active Non-steroidal anti-inflammatory agent (FN) NSAIDs anaphylaxis Drug Allergy Active REASON FOR VISIT Open sore, Skin problem(s) Medications Medication SIG (Take, Route, Frequency, Duration) Notes Start Date End Date Status Magnesium 400 MG as directed Orally Not-Taking Folic Acid 1 MG 1 tablet Orally Once a day; Duration: 30 day(s) Not-Taking Cardizem Not-Taking Extra Depth Orthopedic Shoes (1 Pair) with Customized Heat Molded Multidensity Innersoles (3 Pair) as directed Dx: NIDDM/Polyneuropath y (E11.42), Hammertoe Foot Deformity (M20.41,M20.42), Preulcerative Skin Lesion(s) (L85.1 07/25/2024 Active Doxycycline Hyclate 100 MG 1 capsule Orally Once a day; Duration: 10 day(s) 12/29/2024 Active Extra Depth Diabetic Shoes with 3 Pair Custom heat-molded multi-density innersoles for 1 year Dx: 12/13/2021 Active Vitamin D Active Tamsulosin HCl 0.4 MG 1 capsule Orally Once a day; Duration: 30 day(s) Active Prednisone 10mg Active Custom Orthotics as directed A ctive Pravastatin Sodium 40 MG 1 tablet Orally Once a day; Duration: 30 day(s) Active metFORMIN HCl ER 500 MG 1 tablet with evening meal Orally twice a day Active EpiPen Active Effexor Active Aspirin 81 MG 1 tablet Orally Once a day; Duration: 30 day(s) Active Amiodarone HCl 200 MG 1 tablet Orally Once a day Active Clindamycin HCl 3 capsules 3 times a day for 14 days Not-Taking Diclofenac Not-Takin g Acetaminophen-Codeine 300-30 MG 1 tablet as needed Orally every 6 hrs Active Eliquis Active EPINEPHrine 0.3 MG/0.3ML as directed Injection Not-Taking Hydrocortisone Not-T aking Ketoconazole Not-Dipesh ing Lidocaine-Prilocaine 2.5-2.5 % as directed Externally Not-Taking Naloxone HCl 4 MG/0.1ML as directed Nasally Not-Taki ng Plavix Not-Taking Olopatadine HCl 0.1 % 1 drop into affected eye Ophthalmic Twice a day Not-Taking Ropinirole Hydrochloride Not-Taking Venlafaxine HCl 75 MG 1 tablet with food Orally Once a day; Duration: 30 day(s) Not-Taking Amoxicillin Not-Taki ng Humira Pen 40 MG/0.4ML as directed Subcutaneous Not-Taking Cephalexin 500 MG 1 capsule Orally every 8 hrs; Duration: 10 days Not-Taking Keflex 500 MG 1 capsule Orally every 12 hrs; Duration: 10 day(s) 10/24/2023 Not-Taking Metoprolol Succinate ER Not-Taking Methotrexate 2.5 MG as directed Orally Not-Taking Immunizations Vaccine Route Administration Date Status Comme nts Influenza Unknown 12/29/2024 Refused Social History Tobacco Use: Social History [...] Interpretation Negative Vital Signs Height 5ft9in in 12/29/2024 Weight 248 lbs 12/29/2024 BMI 36.62 kg/m2 12/29/2024 Blood pressure systolic 120 mm Hg 12/30/19 25 Blood pressure diastolic 77 mm Hg 025 Procedures Procedure Date Ordered Date Performed Result Body Sit e 52751-XQGPKBA SKIN/TISSUE 12/29/2024 N/A Encounters Encounter Location Date Provider Diagnosis [facility] [address] [address] 12/29/2024 Bryanna Garcia Neuropathic ulcer of left foot with fat layer exposed L97.522 and Cellulitis of foot, left L03.116 Assessments Encounter Date Diagnosis (ICD Code) Assessment Notes Treatment Notes Treatment Clinical Notes Section Notes 12/29/2024 Neuropathic ulcer of left foot with fat layer exposed (ICD-10 - L97.522) Response to treatment Patient Educated with: WOUND CARE INSTRUCTIONS.p df (WOUND CARE INSTRUCTIONS.p df) 12/29/2024 Cellulitis of foot, left (ICD-10 - L03.116) Plan Of Treatment Medication Medication Name Sig Start Date Stop Date Notes Doxycycline Hyclate 100 MG 1 capsule Ora lly Once a day; Duration: 10 day(s) 12/29/2024 Treatment Notes Assessment Notes Neuropathic ulcer of left fo ot with fat layer exposed Patient Educated with: WOUND CARE INSTRUCTIONS.pdf (WOUND CARE INSTRUCTIONS.pdf) Pending Test Test Name Order Date 12454-ZAMOMGU SKIN/TISSUE 12/29/2024 Next Appt Details Follow Up: 4 Weeks, Reason: Provider Name:Bryanna sosa, 01/19/2025 10:00:00 AM, [address] [place] [address], [phone], Procedure Notes * Category Sub-Category Detail Notes [...] applied. Post debridement measurements: 30 mm x 20 mm x 3mm. Character of the wound post debridement is stable (35919) Progress Notes * Lino OLIVEIRA KDOB: [birth year] (69 yo M)Acc No.[id number]:12/29/2024 Progress Note Patient: Lino CONNOR Provider: Campos Garcia DPM :1955 A ge:69 Y S ex:Male Date:12/29/2024 Address:[address] [place] [address], [place] [phone] Pcp:Jas Casarez SCISSORS SHARPENER-BC Subjective: * Chief Complaints: * O pen soreSkin problem(s) * HPI: S kin problems: Nature: r edness , swelling , tender. Location: L eft. Duration: r edness recent over last two days, open lesion has been there for months. Onset/Cause: f ishing trip. Course: w orse. Treatments: t opical antibiotics. * ROS: G eneral/Constitutional: Nausea d enies. [...] C ardiovascular: Pacemaker d enies, denies. M PLEXIGLAS FORMER d enies. W PW?denies, denies. C HF [...] angiogram spinal stenosis surgery 2019bilateral TKR 2007-2008Stent heart ablation 12/27 * Hospitalization/Major Diagno stic Procedure: X ray left Foot 03/04/2021MRI Left Foot 03/10/2021Injection, Pain Clinic 07/06/2021Ultrasound Bilateral legs, angiogram Left leg 06/30/2021tent Left leg 08/09/2021tent Right leg 09/13/2021apsasin treatment x30 minutes/4x year 1st dosw 12/04/2021infected [...] dditional Findings: Tobacco non-user C urrent nonsmoker M iscellaneous: C affeine: yes, frequency:, 1-2 cups per day. Children: yes. Exercise: yes. 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: . 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 D rug/Alcohol: A BRUNILDA-C (Standard) D id you have a drink containing alcohol in the past year? N o P oints 0 I nterpretation N egative * Medications: T akingAmiodarone HCl 200 MG Tablet 1 tablet Orally [...] Deformity (M20.41,M20.42), Preulcerative Skin Lesion(s) (L85.1 Taking Amiodarone HCl 200 MG Tablet 1 [...] Foot Deformity (M20.41,M20.42), Preulcerative Skin Lesion(s) (L85.1 Not-Taking/PRNClindamycin HCl , Notes to Pharmacist: 3 capsules 3 times a day for 14 daysCardizem Folic Acid 1 MG Tablet 1 tablet [...] List reviewed and reconciled with the patientNot-Taking/PRN Clindamycin HCl , Notes to Pharmacist: 3 capsules 3 times a day for 14 daysNot-Taking/PRN Cardizem Not-Taking/PRN Folic Acid 1 MG Tablet 1 tablet Orally Once a day Not-Taking/PRN Magnesium 400 MG Tablet as directed Orally Not-Taking/PRN Methotrexate 2.5 MG Tablet as directed Orally Not-Taking/PRN Metoprolol Succinate ER Not-Taking/PRN Keflex 500 MG Capsule 1 capsule Orally every 12 hrs Not-Taking/PRN Cephalexin 500 MG Capsule 1 capsule [...] anaphylaxisyes[Allergies Verified] Objective: * Vitals: H t: 5ft9in, Wt:248, BMI:36.62, Shoe size: 12EEE, BP:120/77mm Hg, BS: 115, Ht-cm: 175.26 cm, Wt-k.49 kg. * P ast Orders: L ab:HEMOGLOBIN A1C (GLYCOHEMOGLOBIN) (Order Date - 07/03/2024) (Collection Date & Time - 07/04/2024 08:51 AM) Value Reference Range HEMOGLOBIN A1C % (HH) 5.4 * Examination: O phthalmology Referral: DIABETES EYE EXAM P rocedure Performed: Y es D ate of Exam Performed 0 10/03/2024 F indings of Diabetic Eye Exam: n o retinopathy D ermatologic: SKIN FINDINGS: S kin shows sign(s) of, localized cellulitis without lymphangitis extending proximally to the level of, Proximal IPJ L eft. ULCER: L OCATION, sub second metatarsal head, LEFT, SIZE, 25 mm X 5mm X 3mm, BASE, fibro-granular, RIM, hyperkeratotic, UNDERMINING, mild, TRACKING, Sub Q with Fat layer exposed, DRAINAGE, serosanguineous, moderate, NECROTIC TISSUE, loosely-adherent, yellow slough, MALODOR, absent, CALOR, absent, ERYTHEMA, present, no streaking or lymphangitis. ? G eneral Examination: GENERAL APPEARANCE: D enies fever, chills, malaise, lymphadenopathy. Assessment: * Assessment: 1. N europathic ulcer of left foot with fat layer exposed - L97.522 N otes :Response to treatment 2 . C ellulitis of foot, left - L03.116 (Primary) S pecify :Acute problem, Complicated w/ Multiple Tx Options(4), Dx New problem, Prognosis Uncertain (4), Rx Management (4) Plan: * Treatment: 2. N europathic ulcer of left foot with fat layer exposed P rocedure: 08754-POBHCQV SKIN/TISSUE Notes: Patient Educated with: WOUND CARE INSTRUCTIONS.pdf (WOUND CARE INSTRUCTIONS.pdf) * Procedures: D ebride skin and subQ: Open wound [...] applied. Post debridement measurements: 30 mm x 20 mm x 3mm. Character of the wound post debridement is stable (76987).? * Immunizations: Influenza (Not administered - Refused: Patient decision) * Procedure Codes: 1 1042 DEBRIDE SKIN/TISSUE, Modifiers: XS * Preventive Medicine: Counseling: D iscussion: - 14: Office or other outpatient visit for the evaluation and management of an established patient, which required a medically appropriate history and/or examination and MODERATE level of DECISION MAKING for: 1 OR MORE CHRONIC PROBLEM(S) THATS WORSENING, 2 STABLE CHRONIC PROBLEMS, A NEWLY DIAGNOSED PROBLEM WITH UNCERTAIN PROGNOSIS, AN ACUTE COMPLICATED INJURY WITH MULTIPLE TREATMENT OPTIONS, OR AN ACUTE PROBLEM WITH ACCOMPANYING SYSTEMIC SYMPTOMS, THAT POSE(S) A MODERATE RISK OF MORBIDITY. THIS CONDITION MAY ALSO INCLUDE RX DRUG MANAGEMENT, OR A DECISON FOR MINOR SURGERY. The visit on the day of the [...] have encouraged the patient to call the office. C ellulitis/Lymphangitis T he patient was counseled on the diagnosis, etiology, treatment options, and importance for adherence to recommendations regarding the treatment for Cellulitis. Abx were Rxed to address the cellulitis. The advantages and disadvantages of an antibiotic medication, along with its side effects, were discussed with the patient to their comprehended satisfaction. Patient questions re: use, dosage, and possible pharmacutical interactions were reviewed and the answers clearly understood. If the condition should worsen while taking the antibiotics as directed, it was recommeded that the patient call the office immediately or seek emergency medical care. The patient verbally confirmed a full understanding of the above information. U lcer: A detailed plan of care [...] product availability. The patient is to apply (____) Antibiotic to the wound and cover with a DSD as directed. The patient was instructed to change dressings according to orders, or PRN saturation, leaks. The patient was instructed to monitor and report any signs or symptoms of infection or any untoward reactions. Precautions Taken: Offloading/Pressure reduction via rest/ limited activity to essential to daily life only, cane/ crutches/ walker/ knee scooter/ wheelchair for assisted ambulation, shoe modification, accommodative padding, sharp debridement, and [...] lifestyle if possible, Debridement frequency as indicated. Screening/Special Tests: F all Risk Screening: N o falls in the past year F ALLS: Screening for Future Fall Risk Have you had any falls with injury in the past year? N o * Follow Up: 4 Weeks * Images: * Sign off status: Completed true * Provider: Campos Garcia DPM Date: Generated for Merrick alvarado/Pepe/Jasmeet on: 07:56 AM EDT History and Physical Notes * HPI (History of Present Illness) Category Sub-Category Detail Notes Category Not es Skin problems Nature: redness , swelling , tender Location: Left Duration: redness recent over last two days, open lesion has been there for months Onset/Cause: fishing trip Course: worse Treatments: topical antibiotics Examination Category Sub-Category Detail Notes Category Not es Dermatologic SKIN FINDINGS: Skin shows sign( s) of, localized cellulitis without lymphangitis extending proximally to the level of, Proximal IPJ Left ULCER: LOCATION, sub second metatarsal head, LEFT, SIZE, 25 mm X 5mm X 3mm, BASE, fibro-granular, RIM, hyperkeratotic, UNDERMINING, mild, TRACKING, Sub Q with Fat layer exposed, DRAINAGE, serosanguineous, moderate, NECROTIC TISSUE, loosely-adherent, yellow slough, MALODOR, absent, CALOR, absent, ERYTHEMA, present, no streaking or lymphangitis General Examination GENERAL APPEARANCE: Denies f ever, chills, malaise, lymphadenopathy Ophthalmology Referral DIABETES EYE EXAM Procedure Perform ed:: Yes Date of Exam Performed: 10/03/2024 Findings of Diabetic Eye Exam:: no retin opathy
--- OUTSIDE RECORDS SUMMARY | 2025-01-02 07:55 | XMS_ITS | Encounter Summary ---
Author Organization [facility] Address [address] [place] [address] Phone Care Team Providers Care Acetone Button Paster Name Role Phone Pcp, Unknown Primary Care Provider Unavailabl e Reason for Referral * Occupational Therapy (Routine) - Closed Specialty Diagnoses / Procedures Referred By Contjohn t Referred To Contact Occupational Therapy Diagnoses Encounter for rehabilitation System, Provider Not In, PhD [id number] [place] [address] Phone: tel: Referral ID Status Reason Start Date Expiration Date Visits Re quested Visits Authorized [id number] Closed 05/16/2017 05/16/2018 1 1 Encounter Details Date Type Department Care Team (Latest Contact Info) Description 05/16/2017 Transcribe Orders [facility] [address] [place] [address] Navjot Vieyra MD [address] [place] [address] Encounter for rehabilitation (Primary Dx) Social History [...] Primary documented in this encounter Care Teams Acetone Button Paster Relationship Specialty Start Date End Date Pcp, Unknown PCP - General 04/19/21 documented as of this encounter Additional Source Comments The information contained in this document represents components of the legal health record. It is not the complete legal health record.[facility]
--- OUTSIDE RECORDS SUMMARY | 2025-01-02 07:55 | XMS_ITS | Clinical Summary ---
Author Organization [facility] Address [address] [employer] [facility] [address] [place] [address] Phone Care Team Providers Care Legal Coordinator Name Role Phone Pcp, Unknown Primary Care [...] file Insurance MEDICARE PART A & B [facility] CARE MEDICARE REPLACEMENT MEDICARE PART A & B [facility] CARE MEDICARE REPLACEMENT MEDICARE PART A & B Member Subscriber Plan / Payer (Ef fective 2016-Present) Name:Lino Nayak Member ID:[id number] Relation to Subscriber:Self Name:Lino Nayak Subscriber ID:[id number] Payer ID:[id number] Group ID:Not on file Type:Medicare Address: [employer] [address] [facility] ONE CARE MEDICARE REPLACEMENT MEDICARE PART A & B [facility] MEDICARE REPLACEMENT MEDICARE PART A & B [facility] [place] [address] [facility] ONE CARE MEDICARE REPLACEMENT MEDICARE PART A & B [facility] CARE MEDICARE REPLACEMENT MEDICARE PART A & B [facility] ONE CARE MEDICARE REPLACEMENT [place] [id number] MEDICARE PART A & B [facility] ONE CARE MEDICARE REPLACEMENT MEDICARE PART A & B [facility] Care Teams Legal Coordinator Relationship Specialty Start Date End Date Pcp, Unknown PCP - General 04/19/21 Additional Source Comments The information contained in this document represents components of the legal health record. It is not the complete legal health record.[facility]
--- OUTSIDE RECORDS SUMMARY | 2025-01-02 07:55 | XMS_ITS | Patient Health Record ---
Author Organization [facility] Address [address] [place] [address] Care Team Providers Care Group Home Counselor Name Role Phone GUILLERMO RICHTER Primary Care [...] Status Risk Notes Problem Colon cancer screening (933517524) Colon cancer screening (V76.51) Active confirmed Plan Of Treatment Future Test Test Name Order Date COLONOSCOPY 04/10/2013 Insurance Providers Payer Name Payer Address Payer Phone Subscriber Number Group Number Insured Name Patient Relationship to Insured Coverage Start Date Coverage End Date [facility] [[email or web address] (NEEDS REFERRA L) [address] [place] [address] [phone] [id number] STEVEN OLIVEIRA Self - patient is the insured Medical (General) History Medical History History ICD Code elevated Cholesterol colonoscopy 03/13/2003 Denies LA,DM,CVA,Lung disease,renal dise ase polymyalgia rheumatica arthritis Surgical History Surgery Date(Month/Year) left knee replacement 2008 right knee replacement 2007 carpal tunnel release
--- NOTE | 2025-01-02 07:56 | A.OFFVIS_ITS ---
Vital Signs 01/02/25 08:02 Height 5 ft 9 in Weight 252 lb 6.868 oz BMI 37.3 BP 142/80 H Blood Pressure Location Lt brachial Position Sitting Pulse 71 Pulse Source Pulse Oximeter Pulse Oximetry (%) 96 Oxygen Delivery Method Room Air Intake Visit Reasons: PMR Intake Note: Patient presents for PMR follow up/ Allergies NSAIDS (Non-Steroidal Anti-Inflamma Allergy (Severe, Verified 01/02/25 08:02) Anaphylaxis methadone Allergy (Intermediate, Verified 01/02/25 08:02) Vomiting Medication List - Last Reconciled 01/02/25 by Megan Castro MD acetaminophen-codeine 300-30 mg 1 tab PO BID PRN 30 days amiodarone 200 mg PO ONCE apixaban (Eliquis) 5 mg PO BID 90 days aspirin 81 mg PO DAILY blood sugar diagnostic (FreeStyle Test strips) Test blood sugar once a day cholecalciferol (vitamin D3) 50 mcg PO DAILY 90 days CPAP Machine/Device (CPAP) use daily NS [Diabetic shoes with 3 pair of custom orthotics wear daily] diclofenac sodium 1% 4 grams topical QID PRN 30 days epinephrine (EpiPen) 0.3 mg (0.3 mL) IM Q10M PRN ketoconazole 2% 1 appl topical 2XW metformin ER 500 mg PO DAILY 90 days oxybutynin chloride ER 10 mg PO DAILY 90 days pravastatin 40 mg PO DAILY prednisone 5 mg PO BID 90 days ropinirole 1 mg PO BEDTIME semaglutide (Ozempic) 2 mg (0.75 mL) subcut QWEEK tamsulosin 0.4 mg PO DAILY 90 days venlafaxine ER 150 mg PO DAILY 90 days HPI Comments Details: Patient is a 69-year-old male Paroxysmal AFib on Eliquis, hypertension, diabetes complicated by peripheral artery disease status post amputation of left great toe and neuropathy, iatrogenic Dennys disease and adrenal insufficiency, BPH, sleep apnea, recurrent trochanteric bursitis, osteopenia off and PMR vs se ronegative rheumatoid arthritis here today for follow-up Interval History: Patient last seen 08/14/24 with me - On Prednisone 10mg daily - Patient is with his and overall is doing well on the current dose of prednisone. States that there are some days where he requires more prednisone in which he will increase for a few days and then go back to his 10 mg a day do se. 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 Saw podiatry and they debrided an ulcer and started him on doxycycline Rheumatologic History: Originally his joint symptoms began 2018. He was thought to have PMR. The recalls he was taking at one point 60 mg daily prednisone. That was gradually tapered down but he had trouble going below 15 mg. Eventually however the prednisone was tapered off after he had been put on methotrexate and Humira. Subsequently diagnosis changed to seronegative RA due to peripheral joint symptoms 2020 Humira added 10/[address] of Humira[address] MTX & Kevzara * He self-discontinued Kevzara and methotrexate when he had left big toe gangrene 10/2023 Prednisone continued At some point developed adrenal insufficiency and was seeing endocrinology on hydrocortisone. There were attempts to try to slowly wean him off that medication but this was unsuccessful. The pain in the hands is mostly across t he PIP joints where he has stiffness. He has some foot pain in the instep regions more with walking but also some tingling and numbness at night. Current Rheumatology Medication(s): Prednisone 10mg daily [facility] Medical History Amputation of left great toe Cellulitis Dry gangrene Spinal cord stimulator status Polymyalgia rheumatica PAD (peripheral artery disease) Ascending aorta dilatation Sleep apnea Type 2 diabetes mellitus with peripheral neuropathy Diabetes mellitus due to underlying condition with diabetic neuropathy, without long-term current use of insulin Arterial insufficiency Iatrogenic Dennys's disease Morbid obesity Atherosclerotic cardiovascular disease Diabetic neuropathy associated with type 2 diabetes mellitus Seronegative rheumatoid arthritis Obesity (BMI 30-39.9) Vitamin D deficiency Diabetes type 2, controlled Osteopenia Adrenal 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 Painful total knee replacement, right Surgical History Status post amputation History of endarterectomy History of esophagogastroduodenoscopy (EGD) H/O colonoscopy Hx of coronary angiogram History of back surgery (~2018) History of knee replacement procedure of right knee History of knee replacement procedure of left knee Hx of cardiac cath Family History Father Angina pectoris Mother Stroke Social History Household Members: Spouse Housing: House Are you a primary rn critical care to a significant other at home: No Do you presently have visiting nurse or other home services: No 75 years or older and lives alone: No Alcohol intake: former Year quit: 2023 Patient Tobacco Use Status: Former Tobacco user Years Smoked: 20 years ago e-Cigarette/Vaping Use: Never Used Second Hand Smoke Exposure: No Substance Use Type: Marijuana Advance Directives Date on File: 01/07/24 service: No Current occupational status: retired Cognitive needs: No Hearing needs: No Vision needs: No Review of Systems Narrative Review of Systems Constitutional: Denies fever, weight loss ENT: Denies vision changes, eye pain or eye redness, dental caries, dry mouth GI: Denies nausea, vomiting, diarrhea, abdominal pain, change in BM Pulm: Denies SOB, LEUNG, hemoptysis, wheezing Cards: Denies chest pain, palpitations Skin: Denies Raynaud's, rash, nail changes, photosensitivity, RADIOLOGIC TECHNOLOGIST CHIEF: Denies headaches, weakness, paresthesias, recurrent falls MSK: as per HPI All other systems reviewed and are unremarkable except noted above Physical Exam Exam Exam: Vital signs reviewed Physical Examination CONSTITUITIONAL Patient alert and cooperative. Well appearing and in no apparent painful distress MSK Hands * Right Hand: Able to make a fist. No swelling or tenderness to palpation of the MCPs, PIPs or DIPs. * Left Hand: Able to make a fist. No swelling or tenderness to palpation of the MCPs, PIPs or DIPs. * Herbedens nodes noted bilaterally Wrists * Right Wrist: Full ROM to flexion and extension. No swelling or TTP * Left Wrist: Full ROM to flexion and extension. No swelling or TTP Elbows * Right Elbow: Full ROM. No swelling or TTP. No TTP of the medial epicondyle. No TTP of the lateral epicondyle * Left Elbow: Full ROM. No swelling or TTP. No TTP of the medial epicondyle. No TTP of the lateral epicondyle Shoulders * Right shoulder: Full ROM. No swelling noted. No TTP of the AC joint. No TTP of the subacromial bursa. No TTP of the posterior shoulder * Left shoulder: Full ROM. No swelling noted. No TTP of the AC joint. No TTP of the subacromial bursa. No TTP of the posterior shoulder Knees * Right knee: No swelling noted. No TTP of the knee joint line. No TTP of pes anserine bursa * Left knee: No swelling noted. No TTP of the knee joint line. No TTP of pes anserine bursa. * Crepitations felt bilaterally Ankles * Right ankle: Good ankle dorsiflexion and plantar flexion. No swelling. No TTP of the ankle joint * Left ankle: Good ankle dorsiflexion and plantar flexion. No swelling. No TTP of the ankle joint Feet * Right foot: Negative squeeze test * Left foot: 3 cm ulcer noted to plantar aspect of the 3rd MTP. This is associated with oozing. No obvious purulent drainage noted. The dorsum of the foot is warm and erythematous and tender to touch. Left great toe amputat ed Tender points? * No tenderness to palpation of the bilateral trapezius, supraspinatus, anterior costochondral junctions, bilateral suboccipital muscle insertions Vital Signs: Last Vital Signs Pulse 71 01/02/25 08:02 BP 142/80 H 01/02/25 08:02 Pulse Ox 96 01/02/25 08:02 Oxygen Delivery Method Room Air 01/02/25 08:02 BMI result Body Mass Index 37.3 Results Reviewed Results Reviewed: Laboratory Tests 11/28/24 10:06 WBC 6.5 RBC 4.35 L Hgb 13.7 L Hct 41.3 L Plt Count 175 ESR 5 Sodium 142 Potassium 4.3 Chloride 110 H Carbon Dioxide 27 BUN 13 Creatinine 0.81 AST 16 ALT 20 C-Reactive Protein 0.34 Assessment & Plan Assessment & Plan (1) Ulcer of left foot due to type 2 diabetes mellitus: Code(s): E11.621 - Type 2 diabetes mellitus with foot ulcer; L97.529 - Non-pressure chronic ulcer of other part of left foot with unspecified severity Plan: #Ulcer of left foot Patient is a 69-year-old male with diabetes now with worsening ulcer to the base of the 3rd MTP with associated erythema and drainage. Although his diabetes is controlled given that he is on prednisolone 10 mg as well as his diabetes he is at risk for infection and even osteomyelitis. We will add clindamycin to his regimen and get an urgent MRI to rule out osteomyelitis and/or an infectious collection Plan - Clindamycin 600mg bid x 14 days - Urgent MRI left foot with and without contrast - Labs today: CBC, CMP, ESR, CRP - Patient and advised that if patient were to start developing fevers or to deteriorate clinically at home over the weekend she is to take him to the emergency department (2) Seronegative rheumatoid arthritis: Comment: PMR vs seroneg RA Initially diagnosed as RA?onset 2018. prednisone and eventually methotrexate added. 2020 Humira added with ? improvmenet 10/[address] of Humira[address] MTX & Kevzara self DC 10/2023 when he had arterial thrombosis and left big toe gangrene Prednisone continued Code(s): M06.00 - Rheumatoid arthritis without rheumatoid factor, unspecified site Category: Medical Plan: #PMR vs seronegative RA Patient is a 69-year-old male with PMR vs inflammatory arthritis here today for follow-up. Joints are stable today however the concerning thing is this new ulcer on his left foot. 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 Plan: #Long-term Use of Steroids Discussed with patient the risks and benefits of steroid for managing the rheumatic condition Benefits include: - Reduced pain, improved mobility, increased participation in activities, and decreased progression of disease Risks include: - GI upset, potential ultrasound worsening or formation (especially in patients > 65 years old), elevated blood pressure/worsening hypertension, elevated blood sugar/worsening diabetes control, worsening of bone density, elevated lipids/worsening triglycerides, cataract formation, weight gain Recommended using proton pump inhibitors (PPIs) for the duration of steroid use to reduce the risk of gastric ulcers and vitamin-D daily to reduce the risk of osteoporosis Labs checked: A1c, T spot, hepatitis-B and C serologies Pneumocystis jiroveci prophylaxis: Patient with risk factors including steroids greater than 50 mg for more than 30 days, age greater than 60 years, and lung involvement from underlying rheumatic disease requires prophylaxis and will be given so Plan I spent 45 minutes reviewing the record and labs, taking a history, examining the patient, discussing treatment plan, peer to peer for MRI and documenting in the medical record Orders: Orders MR foot LT wo/w con Today L08.9 - Local infection of the skin and subcutaneous tissue, unspecified Complete Blood Count Auto Diff Today L08.9 - Local infection of the skin and subcutaneous tissue, unspecified Erythrocyte Sedimentation Rate Today L08.9 - Local infection of the skin and subcutaneous tissue, unspecified Comprehensive Met. Panel 4 Months Z79.899 - Other termite exterminator (current) drug therapy C Reactive Protein 4 Months Z79.899 - Other termite exterminator (current) drug therapy Comprehensive Met. Panel Today L08.9 - Local infection of the skin and subcutaneous tissue, unspecified C Reactive Protein Today L08.9 - Local infection of the skin and subcutaneous tissue, unspecified Complete Blood Count Auto Diff 4 Months Z79.899 - Other termite exterminator (current) drug therapy Erythrocyte Sedimentation Rate 4 Months Z79.899 - Other termite exterminator (current) drug therapy Medications: New clindamycin HCl (Cleocin HCl) 600 mg (2 x 300 mg) PO TID 84 caps 0RF 14 days E11.621 - Type 2 diabetes mellitus with foot ulcer, E11.69 - Type 2 diabetes mellitus with other specified complication, L97.509 - Non-pressure chronic ulcer of other part of unspecified foot with unspecified severity, M86.9 - Osteomyelitis, unspecified Coding Level of Care Code Est Pt Level 5 (57956) Complex EM visit Add On G2211 Diagnoses Ulcer of left foot due to type 2 diabetes mellitus E11.621; L97.529 Seronegative rheumatoid arthritis M06.00 Osteopenia of multiple sites M85.89 Osteopenia location: multiple sites terminal 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
--- OUTSIDE RECORDS SUMMARY | 2025-01-02 07:56 | XMS_ITS | Clinical Summary ---
Author Organization [facility] Address [address] [place] [address] Care Team Providers Care Senior Java Ui Developer Name Role Phone Jas Casarez Moy Primary [...] Date Diagnosed Date Resolved Date Atherosclerosis of the [place] of extremities with [...] half, previously drank 9 drinks per week [facility] Utilities Answer Date Recorded In the past 12 months has e [employer], [email or web address], oil, or water [employer] threatened to shut off services in your [...] Info) Description 09/08/2025 1:00 PM EDT Appointment [facility] [address] [place] [address] 09/08/2025 1:45 PM EDT Appointment [facility] [address] [place] [address] 93316 09/08/2025 2:30 PM EDT Appointment [facility] [address] [place] [address] 9[address]34 09/08/2025 3:40 PM EDT Follow-Up [facility] Building Vascular Surgery [address] [place] [address]9350 Woodworking Machine Operator: Denton Zuniga MD [address] [place] [address] Health Maintenance Due Date Last Done Comments [...] this topic Medical Devices Implanted Type Area Abrasive Grader Device Identifier Shelf Expiration Date Model / Serial / Lot System Closure And Repair Suture-Mediate d Perclose Prostyle - [id number] Implanted:Qty: 1 on 08/09/2021 by Denton Palacios MD at [facility] Implant Left: Leg [employer] 01/02/2023 33430-23 / / System Closure And Repair Suture-Mediate d Perclose Prostyle - S0 - [id number] Implanted:Qty: 1 on 09/13/2021 by Denton Palacios MD at [facility] Implant Left: Leg [employer] [id number] 07/03/2023 15495-23 / 0 / [id number] System Closure And Repair Suture-Mediate d Perclose Prostyle - S0 - [id number] Implanted:Qty: 1 on 11/13/2023 by Denton Palacios MD at [facility] Implant N/A: Groin [employer] [id number] 09/01/2025 85058-42 / 0 / [id number] Patch Pericardium Bovine .9dlj1ge Photofix - [id number] Implanted:Qty: 1 on 11/21/2023 by Denton Palacios MD at [facility] Implant Left: Arterial [employer] 06/08/2025 PFP0.8X8 / / [id number] Patch Pericardium Bovine .2cwx3ho Photofix - [id number] Implanted:Qty: 1 on 11/21/2023 by Denton Palacios MD at [facility] Implant Left: Arterial [employer] 05/11/2025 PFP0.8X8 / / [id number] Stent System Vascular 7.3a313wf Biomimics 3d - S0 - [id number] Implanted:Qty: 1 on 08/09/2021 by Denton Palacios MD at [facility] Stent Left: Leg [facility] [id number] 10/21/2022 [id number] -1 1 / 0 / [id number] Stent System Vascular 6.1y554iu Biomimics 3d - S0 - [id number] Implanted:Qty: 1 on 09/13/2021 by Denton Palacios MD at [facility] Stent Right: Leg [facility] [id number] 02/09/2023 [id number] -1 0 / 0 / [id number] Stent Icast Covered [id number] - [id number] - [id number] Implanted:Qty: 1 on 11/13/2023 by Denton Palacios MD at [facility] Stent Left: Arterial c3 creations [facility] [id number] 12/13/2025 [id number] / [id number] 0 / Procedures * Due to [place] state law, this organization might not be sharing negative HIV tests. Procedure Name Priority Date/Time Associated Diagnosis Comments BASIC METABOLIC PANEL Routine 11/23/2023 6:10 AM EDT HEMOGLOBIN A1C Routine 11/22/2023 2:23 AM EDT from Last 3 Months or Most Recently Relevant to Health Maintenance Results * Due to [place] state law, this organization might not be sharing negative HIV tests. * (ABNORMAL) Basic Metabolic Panel (11/23/2023 6:10 AM EDT) NA 138 135 - 145 mmol/L 11/23/2023 6:55 AM EDT [facility] K 3.9 3.5 - 5.3 mmol/L 11/23/2023 6:55 AM EDT [facility] Cl 105 98 - 107 mmol/L 11/23/2023 6:55 AM EDT [facility] CO2 24 24 - 32 mmol/L 11/23/2023 6:55 AM EDT [facility] BUN 10 7 - 23 mg/dL 11/23/2023 6:55 AM EDT [email or web address] Creatinine 0.70 0.60 - 1.30 mg/dL 11/23/2023 6:55 AM EDT [facility] Glucose 118(H) 65 - 99 mg/dL 11/23/2023 6:55 AM EDT [facility] Calcium 8.1(L) 8.6 - 10.5 mg/dL 11/23/2023 6:55 AM EDT [facility] Anion Gap 9 5 - 15 11/23/2023 6:55 AM EDT [facility] eGFR >90 >=60 mL/min/1. 73m2 11/23/2023 6:55 AM EDT [facility] Comment:The estimated glomer ular [...] MD LAB BLOOD ORDERABLES Mahnaz sutton Result [facility] [address] [place] [address], * (ABNORMAL) Hemoglobin A1c (11/22/2023 2:23 AM EDT) Hemoglobin A1C 6.2(H) <5.7 % of total Hgb 11/22/2023 10:11 AM EDT [facility] Comment: For someone without known diabetes, [...] (MG/DL) 131 mg/dL 11/22/2023 10:11 AM EDT [employer] eAG (MMOL/L) 7.3 mmol/L 11/22/2023 10:11 AM EDT [facility] Comment: This test was performed on the Daniella elmer c503 platform. Effective 05/07/23, a change in test platforms from the Marino History Teacher to the Daniella elmer c503 may have shifted HbA1c results compared to historical results. Based on laboratory validation testing conducted at [facility], the Daniella platform relative to the Marino [...] EDT 11/22/2023 2:43 AM EDT Narrative [facility] - 11/22/2023 10:11 AM EDT [facility] Received Date:[id number] Denton Palacios MD LAB BLOOD ORDERABLES Mahnaz l Result [facility] [address] [facility] [facility] [address], [place] [address], [employer] [facility] [address], [place] [address], from Last 3 Months or Most Recently Relevant to Health Maintenance Insurance [facility] MCR REPLACE PPO Advance Directives * [...] 8:48 AM 09/06/2021 4:36 PM Care Teams Senior Java Ui Developer Relationship Specialty Start Date End Date Jas Casarez [address] [place] [address] PCP - General 07/19/21
--- OUTSIDE RECORDS SUMMARY | 2025-01-02 07:56 | XMS_ITS | Patient Health Record ---
Author Organization [facility] Address [address] [facility] [place] [address] Care Team Providers Care Pipe Line Inspector Name Role Phone Jas Stone Primary Care Provider UnaBryanna Angel Unavailable [phone] Tono Skinner Unavailable [phone] Allergies Allergen (clinical drug ingredient) Drug/Non Drug [...] Duration) Notes Start Date End Date Status Extra Depth Diabetic Shoes with 3 Pair Custom heat-molded multi-density innersoles for 1 year Dx: 12/13/2021 Active Vitamin D Active Diclofenac Not-Takin g Tamsulosin HCl 0.4 MG 1 capsule Orally Once a day; Duration: 30 day(s) Active EPINEPHrine 0.3 MG/0.3ML as directed Injection Not-Taking Prednisone 10mg Active Hydrocortisone Not-T aking Ketoconazole Not-Dipesh ing Lidocaine-Prilocaine 2.5-2.5 % as directed Externally Not-Taking Methotrexate 2.5 MG as directed Orally [...] a day; Duration: 10 day(s) 12/29/2024 Active Custom Orthotics as directed A ctive Amiodarone HCl 200 MG 1 tablet Orally Once a day Active Plavix Not-Taking Clindamycin HCl 3 capsules 3 times a day for 14 days Not-Taking Humira Pen 40 MG/0.4ML as directed Subcutaneous Not-Taking Cephalexin 500 MG 1 capsule Orally every 8 hrs; Duration: 10 days Not-Taking Keflex 500 MG 1 capsule Orally every 12 hrs; Duration: 10 day(s) 10/24/2023 Not-Taking Metoprolol Succinate ER Not-Taking Pravastatin Sodium 40 MG 1 tablet Orally Once a day; Duration: 30 day(s) Active metFORMIN HCl ER 500 MG 1 tablet with evening meal Orally twice a day Active EpiPen Active Naloxone HCl 4 MG/0.1ML as directed Nasally Not-Taki ng Effexor Active Olopatadine HCl 0.1 % 1 drop into affected eye Ophthalmic Twice a day Not-Taking Aspirin 81 MG 1 tablet Orally Once a day; Duration: 30 day(s) Active Ropinirole Hydrochloride Not-Taking Acetaminophen-Codeine 300-30 MG 1 tablet as needed Orally every 6 hrs Active Venlafaxine HCl 75 MG 1 tablet with food Orally Once a day; Duration: 30 day(s) Not-Taking Eliquis Active Amoxicillin Not-Taki ng Immunizations Vaccine Route Administration Date Status Comme nts Influenza Unknown 11/02/2023 Refused Influenza Unknown 12/29/2024 Refused Social History Tobacco [...] Problem Acquired hammer toe of right foot (807640627288524 5) Other hammer toe(s) (acquired), right foot (M20.41) Active confirmed Problem Acquired hammer toe of left foot (588376347429162 3) Other hammer toe(s) (acquired), left foot (M20.42) Active confirmed Problem Polyneuropathy due to type 2 diabetes mellitus (854063277) Type 2 diabetes mellitus with diabetic polyneuropathy (E11.42) Active confirmed Problem 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) Active confirmed Response to treatment Vital Signs Blood pressure diastolic 77 mm Hg 12/29/2024 Height 5ft9in in 12/29/2024 Blood pressure systolic 120 mm Hg 12/29/2024 Weight 248 lbs 12/29/2024 BMI 36.62 kg/m2 12/29/2024 Procedures Procedure Date Ordered Date Performed Result Body Sit e 15937-YOYFJMV SKIN/TISSUE 02/04/2024 N/A 53858-SFUVMOV SKIN/TISSUE 02/11/2024 N/A 21437 - Tenotomy, open flexor 02/11/2024 N/A 53638-QMNNAWV SKIN/TISSUE 02/20/2024 N/A 29816-CGNQVMC SKIN/TISSUE 03/10/2024 N/A 77619-GTPPOEL SKIN/TISSUE 03/17/2024 N/A 84692-NIHFVFY SKIN/TISSUE 03/26/2024 N/A 19618-CBKUTYL NAIL, 1-5 07/25/2024 N/A 24626-JLVC SKIN LESIONS, OVER 4 07/25/2024 N/A D4002-IZUEZYDK DYSTROPHIC NAILS ANY # 07/25/2024 N/A 92009-KIIDBDB SKIN/TISSUE 09/30/2024 N/A 60747-TYNOLSX SKIN/TISSUE 12/29/2024 N/A Encounters Encounter Location Date Provider Diagnosis [address] [address] 02/04/2024 Bryanna Garcia Skin ulcer of toe of left foot with fat layer exposed L97.522 ; Hammertoe of left foot M20.42 ; Type 2 diabetes mellitus with diabetic polyneuropathy E11.42 ; History of amputation Z89.9 and Peripheral vascular disease of extremity I73.[address] [address] 02/11/2024 Bryanna Garcia Hammer toe of left foot M20.42 ; Skin ulcer of toe of left foot with fat layer exposed L97.522 ; Type 2 diabetes mellitus with diabetic polyneuropathy E11.42 ; History of amputation Z89.9 and Peripheral vascular disease of extremity I73.[address] [address] 02/20/2024 Bryanna Garcia Hammer toe of left foot M20.42 ; Skin ulcer of toe of left foot with fat layer exposed L97.522 ; Type 2 diabetes mellitus with diabetic polyneuropathy E11.42 ; History of amputation Z89.9 ; Peripheral vascular disease of extremity I73.9 and Subacute osteomyelitis of left foot M86.[address] [address] 03/10/2024 Bryanna Garcia Skin ulcer of toe of left foot with fat layer exposed L97.522 ; Type 2 diabetes mellitus with diabetic polyneuropathy E11.42 ; History of amputation Z89.9 ; Peripheral vascular disease of extremity I73.9 and Subacute osteomyelitis of left foot M86.[address] [address] 03/17/2024 Bryanna Garcia Skin ulcer of toe of left foot with fat layer exposed L97.522 ; Type 2 diabetes mellitus with diabetic polyneuropathy E11.42 ; History of amputation Z89.9 ; Peripheral vascular disease of extremity I73.9 and Subacute osteomyelitis of left foot M86.[address] [address] 03/26/2024 Bryanna Garcia Skin ulcer of toe of left foot with fat layer exposed L97.522 ; Type 2 diabetes mellitus with diabetic polyneuropathy E11.42 ; History of amputation Z89.9 ; Peripheral vascular disease of extremity I73.9 and Subacute osteomyelitis of left foot M86.[address] [address] 04/22/2024 Tono Susanne Skin ulcer of toe of left foot with fat layer exposed L97.522 ; Type 2 diabetes mellitus with diabetic polyneuropathy E11.42 ; History of amputation Z89.9 and Peripheral vascular disease of extremity I73.[address] [address] 07/25/2024 Tono Susanne Type 2 diabetes mellitus with diabetic polyneuropathy E11.42 ; Tinea unguium B35.1 ; Other hammer toe(s) (acquired), right foot M20.41 and Other hammer toe(s) (acquired), left foot M20.42 [facility] [address] [address] 09/30/2024 Bryanna Garcia Type 2 diabetes mellitus with diabetic polyneuropathy E11.42 ; Tinea unguium B35.1 and Neuropathic ulcer of left foot with fat layer exposed L97.[address] [address] 12/29/2024 Bryanna Garcia Neuropathic ulcer of left foot with fat layer exposed L97.522 and Cellulitis of foot, left L03.[address] [address] 02/04/2024 Bryanna Garcia [address] [address] 10/24/2024 Bryanna Garcia [address] [address] 12/29/2024 Bryanna Garcia [address] [address] 02/21/2024 Bryanna Garcia Assessments Encounter Date Diagnosis [...] mellitus with diabetic polyneuropathy (ICD-10 - E11.42) 12/29/2024 Neuropathic ulcer of left foot with fat layer exposed (ICD-10 - L97.522) Response to treatment Patient Educated with: WOUND CARE INSTRUCTIONS. pdf (WOUND CARE INSTRUCTIONS. pdf) 09/30/2024 Neuropathic ulcer of left foot with fat layer exposed (ICD-10 - L97.522) Response to treatment Nonapplicable Patient Educated with: WOUND CARE INSTRUCTIONS. pdf (WOUND CARE INSTRUCTIONS. pdf) 12/29/2024 Cellulitis of foot, left (ICD-10 - L03.116) 03/26/2024 History of amputation (ICD-10 - Z89.9) [...] X ray : Foot, right 3V 12/13/2021 91744-WNWXWRK NAIL, 1-5 07/25/2024 30999-DFRNCUZ SKIN/TISSUE 02/11/2024 37275-GNYZWOJ SKIN/TISSUE 02/20/2024 53303-QNSSUPR SKIN/TISSUE 03/10/2024 33226-ZDFQALF SKIN/TISSUE 03/17/2024 05700-ZBQYUSG SKIN/TISSUE 03/26/2024 79047-REYNVHP SKIN/TISSUE 02/04/2024 21349-PBXLSWK SKIN/TISSUE 10/24/2023 18430-VFBYIKL SKIN/TISSUE 11/02/2023 42181-GOGUWUY SKIN/TISSUE 09/30/2024 74736-YYAVWUC SKIN/TISSUE 12/29/2024 17332-SQAU SKIN LESIONS, OVER 4 07/26/19 25 W2642-JTFOGMWT DYSTROPHIC NAILS ANY # X ray : Ankle, right 3V 12/13/2021 11183 - Tenotomy, open flexor 02/11/2024 Next Appt Details Provider Name:Bryanna sosa, 01/19/2025 10:00:00 AM, [address] [facility], [place], [address], Insurance Providers Payer Name Payer Address Payer Phone Subscriber Number Group Number Insured Name Patient Relationship to Insured Coverage Start Date Coverage End Date [facility] 65 Medicare Preferred [address] [place] [address] [phone] [id number] Lino Nayak Self - patient is the [...] angiogram spinal stenosis surgery 2019 bilateral TKR [id number] Stent heart ablation 12/27 Hospitalization History Reason Date(Month/Year) Xray left Foot 03/04/2021 infected foot, heart conditions 2024 Capsasin treatment x30 minutes/4x year [address] dosw 12/04/2021 Stent Right leg 09/13/2021 Stent Left leg 08/09/2021 Ultrasound Bilateral legs, angiogram Lef t leg 06/30/2021 Injection, [facility] 07/06/2021 MRI Left Foot 03/10/2021
[2025-01-02 08:02] VITALS: BP 142/80; PULSE 71; O2SAT 96; BMI 37.3
== END 2025-01-02 08:44 | disposition home or self-care (01) ==
LOC: HO.RHES 07:54
PROVIDERS: PCP Nurse Practitioner Family; Visit Provider Student in an Organized Health Care Education/Training Program
DX: M06.09 Rheumatoid arthritis without rheumatoid factor, multiple sites (principal); E11.621 Type 2 diabetes mellitus with foot ulcer; L97.529 Non-pressure chronic ulcer of other part of left foot with unspecified severity; M85.89 Other specified disorders of bone density and structure, multiple sites; Z79.52 Long term (current) use of systemic steroids
CPT/HCPCS: 99215; G2211

== ENCOUNTER 2025-01-02 07:53 | Outpatient (REF) | payer MEDICARE, SELFPAY ==
[2025-01-02 13:19] LABS: MANUAL DIFF FLAG NO
[2025-01-02 13:27] LABS: Hematocrit 42.9 % (42.0-52.0); Hemoglobin 13.8 g/dl (14.0-18.0); Imm Gran Abs Auto 0.06 X10*3/uL (0.00-0.03); Imm Gran Pct Auto 0.7 % (0.0-0.4); Lymphocytes Absolute Auto 0.6 X10*3/uL (1.2-4.9); Mean Corpuscular HGB Conc 32.2 g/dl (31.0-36.0); Mean Corpuscular Hemoglobin 31.0 pg (27.0-33.0); Mean Corpuscular Volume 96.4 fL (80.0-98.0); NRBC Abs Auto 0.000 X10*3/uL (0.0-0.012); NRBC Pct Auto 0.0 /100WBC (0.0-0.2); Platelet Count 146 X10*3/uL (160-400); Red Blood Count 4.45 X10*6/uL (4.60-5.80); White Blood Count 8.5 X10*3/uL (4.8-10.8)
[2025-01-02 13:41] LABS: Alanine Aminotransferase 20 U/L (0-40); Albumin Level 4.3 g/dL (3.5-5.0); Alkaline Phosphatase 60 U/L (39-117); Anion Gap 13 (12-20); Aspartate Amino Transferase 21 U/L (5-37); Blood Urea Nitrogen 14 mg/dL (9-16); Calcium 9.3 mg/dL (8.4-10.2); Carbon Dioxide 28 mmol/L (22-29); Chloride 102 mmol/L (96-108); Estimated Glomerular Filt Rate > 60; Potassium 4.7 mmol/L (3.3-5.1); Sodium 138 mmol/L (135-145); Total Protein 7.0 g/dL (6.5-8.0)
== END 2025-01-02 07:54 | disposition home or self-care (01) ==
LOC: HO.HKASLDS 07:53
PROVIDERS: PCP Nurse Practitioner Family; Visit Provider Student in an Organized Health Care Education/Training Program
DX: E11.621 Type 2 diabetes mellitus with foot ulcer (principal); L97.529 Non-pressure chronic ulcer of other part of left foot with unspecified severity; M06.00 Rheumatoid arthritis without rheumatoid factor, unspecified site; M85.89 Other specified disorders of bone density and structure, multiple sites; L08.9 Local infection of the skin and subcutaneous tissue, unspecified; Z79.52 Long term (current) use of systemic steroids; Z79.899 Other long term (current) drug therapy; Z79.84 Long term (current) use of oral hypoglycemic drugs
CPT/HCPCS: 36415; 80053; 85025; 85652; 86140; 99212

== ENCOUNTER 2025-01-26 10:00 | Outpatient (AMB) | payer MEDICARE, SELFPAY ==
--- NOTE | 2025-01-26 10:03 | MHC.OFFVIS ---
Vital Signs 01/26/25 10:12 Height 5 ft 9 in Weight 252 lb 4 oz BMI 37.2 BP 168/77 H Blood Pressure Location Lt brachial Position Sitting Pulse 59 Pulse Source Pulse Oximeter Pulse Oximetry (%) 98 Oxygen Delivery Method Room Air Intake Visit Reasons: Pill Count Intake Note: Lino comes in today for a pill count to tylenol# 3, patient should have 0 tablets and presents with 8.5 tablets which he last took a few weeks ago . 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 He is supposed to have #0 pills, in his possession has #8.5 pills. This demonstrates a responsible attitude in regards to the medication regimen. Patient reports bilateral foot pain without exacerbation due to diabetic neuropathy, rated as a 2/10. For chronic back pain, the patient continues to use a spinal cord stimulator without any recent changes in its effectiveness, noting it does not provide relief down to the feet. The patient reports ongoing right shoulder pain, identified as right subacromial bursitis and arthritis. The patient experiences a clicking, popping, and occasional knocking sensation with movement, particularly when reaching overhead or performing physical labor. The last injection for this was on August 04 and was performed with ultrasound guidance. The patient is not currently taking any medication for the shoulder pain and has stopped using diclofenac. He requests to repeat right shoulder therapeutic injection today. Patient also reports chronic left foot pain with swelling and prior left toe amputation and podiatry procedures for callus debridement. He has been taking antibiotics and is completing his 2nd course of antibiotic this week with persistent pain and mild reduction in swelling. Reports decrease in redness and warm sensation since taking antibiotics. He continues weight management with dietary adjustments, daily physical activity and medication regimen, including Ozempic. Patient denies any fever, chills, abdominal dyspnea, constipation, nausea, sedation, dizziness, bowel/bladder dysfunction or saddle anesthesia. - Location: Right shoulder. - Quality: Reports clicking, popping, and knocking sensations. - Exacerbating Factors: Pain is worse with overhead arm movements. - Functional Limitations: The pain is associated with limited range of motion, including overhead reach and rotation. - Analgesia: The patient uses a spinal cord stimulator for back pain and Tylenol #3 for breakthrough pain. - For right shoulder pain, the patient does not take any medication. - Activities of Daily Living: Right shoulder pain limits overhead reach, as well as internal and external rotation. - Aberrant Drug Related Behaviors: A pill count was performed and found to be correct. Past Procedures: 05/02/23: Lumbar SCS Implant with Nevro-100% pain relief back/hip, 50% pain relief bilateral feet 02/28/23: Lumbar SCS Trial with Nevro-100% pain relief 12/06/21-12/05/22: Qutenza every 3 months-minimal pain relief [facility] Medical History Amputation of left great toe Cellulitis Dry gangrene Spinal cord stimulator status Polymyalgia rheumatica PAD (peripheral artery disease) Ascending aorta dilatation Sleep apnea Type 2 diabetes mellitus with peripheral neuropathy Diabetes mellitus due to underlying condition with diabetic neuropathy, without long-term current use of insulin Arterial insufficiency Iatrogenic Dennys's disease Morbid obesity Atherosclerotic cardiovascular disease Diabetic neuropathy associated with type 2 diabetes mellitus Seronegative rheumatoid arthritis Obesity (BMI 30-39.9) Vitamin D deficiency Diabetes type 2, controlled Osteopenia Adrenal 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 Painful total knee replacement, right Surgical History Status post amputation History of endarterectomy History of esophagogastroduodenoscopy (EGD) H/O colonoscopy Hx of coronary angiogram History of back surgery (~2017) History of knee replacement procedure of right knee History of knee replacement procedure of left knee Hx of cardiac cath Family History Father Angina pectoris Mother Stroke Social History Household Members: Spouse Housing: House Are you a primary nursing care attendant to a significant other at home: No Do you presently have visiting nurse or other home services: No 75 years or older and lives alone: No Alcohol intake: former Year quit: 2023 Patient Tobacco Use Status: Former Tobacco user Years Smoked: 20 years ago e-Cigarette/Vaping Use: Never Used Second Hand Smoke Exposure: No Substance Use Type: Marijuana Advance Directives Date on File: 01/07/24 service: No Current occupational status: retired Cognitive needs: No Hearing needs: No Vision needs: No Review of Systems Const All systems reviewed & are unremarkable except as noted in HPI and below Physical Exam Vital Signs: Last Vital Signs Pulse 59 01/26/25 10:12 BP 168/77 H 01/26/25 10:12 Pulse Ox 98 01/26/25 10:12 Oxygen Delivery Method Room Air 01/26/25 10:12 BMI result Body Mass Index 37.2 General: Appears afebrile. Alert and oriented. Mood and affect appropriate. Follows and participates in conversation appropriately. Respiratory effort is unlabored. No cough. Able to transition from sit to stand unassisted. Ambulates with bilaterally normal heel strike and toe off. Extrem Other: Dressing with padding pressing to left midfoot plantar surface with present calluses, pedal and gross left foot edema noted, no erythema. General: Yes capillary refill normal, Yes no pedal edema, No clubbing, No cyanosis and Yes pedal edema (+1 left ) Right upper extremity: shoulder/upper arm Details: normal to inspection, tenderness (Limited ROM with I/E rotations due to pain) Location: of the A-C joint and over the subacromial bursa and crepitus; no ecchymosis and no unusual warmth Psych Appearance: grossly normal Mental Status: mental status grossly normal Speech and movement: Normal speech and movement present Affect: normal affect Attitude: cooperative Thought process: Normal thought process present Thought content: Normal thought content present, suicidality (none), no hallucinations and No Depressive thoughts present Insight: Good insight present (Psych) Judgement: Good judgement present (Psych) Office Procedures AMB Joint Injection/Aspiration Joint Injection/Aspiration Details: Right Subacromial Bursal Injection by Dr. Mead: Informed consent obtained, right side confirmed and prepped with Chloroprep. A 25-gauge needle was inserted under ultrasound guidance [id number] to the subacromial bursa. Injected with 30 mg of Kenalog mixed with 4 mL of Ropivacaine 0.25%. Procedure was visualized via ultrasound and images saved to the patient record. Tolerated well without complications. Primary Site: Right Shoulder Prep: site was prepped using sterile technique and injection warnings given Injected: 40 mg of (30 mg), Kenalog, with 4 mL of (Ropivacaine 0.25%) and in the subcromial space Procedure: The patient tolerated the procedure well Coding 82998 - Acromioclavicular with ultrasound guidance Procedure code (CPT) selection complete Results Reviewed Results Reviewed: NE electromyogram (EMG); NE nerve conduction velocity 01/19/22 Right tibial and peroneal motor studies were performed. Right superficial peroneal and sural sensory studies were performed. Tibial H-reflex was obtained and paraspinal muscles were tested with a needle. IMPRESSION: Moderately severe axonal sensory motor peripheral neuropathy. Assessment & Plan Assessment & Plan (1) Non-healing ulcer of left foot: Code(s): L97.529 - Non-pressure chronic ulcer of other part of left foot with unspecified severity Category: Medical (2) Right shoulder pain: Code(s): M25.511 - Pain in right shoulder Category: Medical (3) Chronic painful diabetic neuropathy: Code(s): E11.40 - Type 2 diabetes mellitus with diabetic neuropathy, unspecified Category: Medical (4) Chronic pain syndrome: Code(s): G89.4 - Chronic pain syndrome Category: Medical (5) Failed back syndrome of lumbar spine: Code(s): M96.1 - Postlaminectomy syndrome, not elsewhere classified Category: Medical Plan Patient has shown accountability for his medication regimen and the pill count was accurate. There is no evidence of misuse, abuse or diversion at this time. MassPat reviewed. Refill sent for Tylenol#3 1 tablet BID prn today. Patient has Narcan at home. [facility] with good pain relief for back pain, but will will reach out to [facility] for program adjustments to optimize pain relief in both feet. Follow up with PCP and Podiatry regarding left foot pain and if no improvement in swelling or pain after completing antibiotics per Podiatry. Lab work in place for persistent left foot pain with resistance to current management per patient's and family. Monitor for any changes in right shoulder pain post-injection, administered today by . - Limit strenuous activity involving the shoulder. - Observe post-procedural site for signs of infection or adverse reactions. - Call for follow-up if pain persists or worsens within the next couple of months. - Continue current analgesics and topical treatments unless advised otherwise. All questions and concerns have been answered and patient agreed with the plan. Follow up in 2 months for pill count and sooner as needed. Orders: Orders Complete Blood Count Auto Diff 01/26/25 L97.529 - Non-pressure chronic ulcer of other part of left foot with unspecified severity Blood Culture X2 01/26/25 L97.529 - Non-pressure chronic ulcer of other part of left foot with unspecified severity AMB Joint Injection/Aspiration 01/26/25 M25.511 - Pain in right shoulder Coding Level of Care Code Est Pt Level 4 (37766) Diagnoses Non-healing ulcer of left foot L97.529 Right shoulder pain M25.511 Chronic painful diabetic neuropathy E11.40 Chronic pain syndrome G89.4 Failed back syndrome of lumbar spine M96.1 CPT Codes Coding - Joint 6: 88331 - Acromioclavicular with ultrasound guidance ([id number])
[2025-01-26 10:12] VITALS: BP 168/77; PULSE 59; O2SAT 98; BMI 37.2
--- OUTSIDE RECORDS SUMMARY | 2025-01-26 12:02 | XMS_ITS | Clinical Summary ---
Author Organization [facility] Address [address] [facility] [address] [place] [address] Phone Care Team Providers Care Instructor Physical Name Role Phone Pcp, Unknown Primary Care [...] VACCINES (50+ years) (2 of 2 - PCV20 or PCV21) 12/23/2019 12/22/2018 INFLUENZA VACCINE (#1) 2024 , 12/12/2017, 10/04/2016, Additional history exists COVID-19 VACCINE [...] topic Medical Devices Not on file Insurance [place] [address] ONE CARE MEDICARE REPLACEMENT MEDICARE PART A & B [facility] MEDICARE REPLACEMENT MEDICARE PART A & B [facility] MEDICARE REPLACEMENT MEDICARE PART A & B [facility] ONE CARE MEDICARE REPLACEMENT MEDICARE PART A & B [facility] ONE CARE MEDICARE REPLACEMENT MEDICARE PART A & B [facility] ONE CARE MEDICARE REPLACEMENT MEDICARE PART A & B Member Subscriber Plan / Payer (Ef fective 2016-Present) Name:Lino Nayak Member ID:[id number] Relation to Subscriber:Self Name:MaliniLino Subscriber ID:[id number] Payer ID:[id number] Group ID:Not on file Type:Medicare Address: [facility] [employer] [facility] [address] [place] [phone] [facility] MEDICARE REPLACEMENT MEDICARE PART A & B [facility] ONE CARE MEDICARE REPLACEMENT MEDICARE PART A & B [facility] ONE CARE MEDICARE REPLACEMENT MEDICARE PART A & B [facility] Care Teams Instructor Physical Relationship Specialty Start Date End Date Pcp, Unknown PCP - General 04/19/21 Additional Source Comments The information contained in this document represents components of the legal health record. It is not the complete legal health record.[facility]
--- OUTSIDE RECORDS SUMMARY | 2025-01-26 12:02 | XMS_ITS | Encounter Summary ---
Author Organization [facility] Address [address] [place] [address] Phone Care Team Providers Care Commercial Roofer Name Role Phone Pcp, Unknown Primary Care Provider Unavailabl e Reason for Referral * Occupational Therapy (Routine) - Closed Specialty Diagnoses / Procedures Referred By Contjohn t Referred To Contact Occupational Therapy Diagnoses Encounter for rehabilitation System, Provider Not In, PhD [id number] [place] [address] Phone: tel: Referral ID Status Reason Start Date Expiration Date Visits Re quested Visits Authorized [id number] Closed 05/16/2017 05/16/2018 1 1 Encounter Details Date Type Department Care Team (Latest Contact Info) Description 05/16/2017 Transcribe Orders [facility] [address] [place] [address] Navjot Vieyra MD [address] [place] [phone] Encounter for rehabilitation (Primary Dx) Social History [...] Primary documented in this encounter Care Teams Commercial Roofer Relationship Specialty Start Date End Date Pcp, Unknown PCP - General 04/19/21 documented as of this encounter Additional Source Comments The information contained in this document represents components of the legal health record. It is not the complete legal health record.[facility]
--- OUTSIDE RECORDS SUMMARY | 2025-01-26 12:02 | XMS_ITS | Clinical Summary ---
Author Organization [facility] Address [address] [place] [address] Care Team Providers Care Patient Biller Name Role Phone Jas Casarez Moy Primary Care Provider [phone] Allergies Active Allergy Reactions Criticality Noted Date [...] Date Diagnosed Date Resolved Date Atherosclerosis of [place] of extremities with gangrene, left [...] half, previously drank 9 drinks per week [facility] Utilities Answer Date Recorded In the past 12 months has e [employer], [employer], oil, or water [employer] threatened to shut off services in your [...] Info) Description 09/08/2025 1:00 PM EDT Appointment [facility] [address] [place] [phone] 09/08/2025 1:45 PM EDT Appointment [facility] [address] [place] [address] 09/08/2025 2:30 PM EDT Appointment [facility] [address] [place] [address] 09/08/2025 3:40 PM EDT Follow-Up [facility] Building Vascular Surgery [address] [place] [phone] Electrical Appliance Repairer: Denton Zuniga MD [address] [place] [phone] Health Maintenance Due Date Last Done Comments Cologuard 1953 Colon Cancer Screening 1955 Colonoscopy 1953 FOBT / Fit Test 1953 Hepatitis C Screening 1953 Sigmoidoscopy 1953 Ophthalmology Exam 1963 Urine Microalbumin 1963 Zoster Vaccines (1 of 2) 2003 DTaP,Tdap,and Td Vaccines (1 - Tdap) 11/28/2014 11/27/2014 Alcohol/Substance Use Screening 03/05/2024 Depression Screening and Follow-Up 03/05/2024 Fall Risk Screening 03/05/2024 Health Care Proxy Review 03/05/2024 Social Drivers of Health Annual Screening 03/05/2024 Hemoglobin A1C 05/21/2024 11/22/2023 Influenza Vaccine (#1) 2024 , 12/22/2018, 12/12/2017, Additional history exists COVID-19 Vaccine ( season) 2024 10/27/2020, 10/06/2020 Basic Metabolic Panel 11/22/2024 11/23/2023 , 11/22/2023, 11/21/2023, Additional history exists RSV Vaccine (60+ years old and patients) (1 - 1-dose 75+ series) 2028 Pneumococcal Vaccine: 50+ Years Completed 06/25/2024, 12/22/2018 Hepatitis B Vaccines Aged Out No long er eligible based on patient's age to complete this topic Medical Devices Implanted Type Area Agent Spa Desk Device Identifier Shelf Expiration Date Model / Serial / Lot System Closure And Repair Suture-Mediate d Perclose Prostyle - [id number] Implanted:Qty: 1 on 08/09/2021 by Denton Palacios MD at [facility] Implant Left: Leg [employer] 01/02/2023 [id number] / / System Closure And Repair Suture-Mediate d Perclose Prostyle - S0 - [id number] Implanted:Qty: 1 on 09/13/2021 by Denton Palacios MD at [facility] Implant Left: Leg [employer] [id number] 07/03/2023 [id number] / 0 / [id number] System Closure And Repair Suture-Mediate d Perclose Prostyle - S0 - [id number] Implanted:Qty: 1 on 11/13/2023 by Denton Palacios MD at [facility] Implant N/A: Groin [employer] [id number] 09/01/2025 [id number] / 0 / [id number] Patch Pericardium Bovine .5cxk5bl Photofix - [id number] Implanted:Qty: 1 on 11/21/2023 by Denton Palacios MD at [facility] Implant Left: Arterial [employer] 06/08/2025 PFP0.8X8 / / [id number] Patch Pericardium Bovine .8lgm5tz Photofix - [id number] Implanted:Qty: 1 on 11/21/2023 by Denton Palacios MD at [facility] Implant Left: Arterial [employer] 05/11/2025 PFP0.8X8 / / [id number] Stent System Vascular [id number] Biomimics 3d - S0 - [id number] Implanted:Qty: 1 on 08/09/2021 by Denton Palacios MD at [facility] Stent Left: Leg [facility] [id number] 10/21/2022 [id number] -1 1 / 0 / [id number] Stent System Vascular [id number] BiomimHypemarks 3d - S0 - [id number] Implanted:Qty: 1 on 09/13/2021 by Denton Palacios MD at [facility] Stent Right: Leg [facility] [id number] 02/09/2023 [id number] -1 0 / 0 / [id number] Stent Icast Covered [id number] - [id number] - [id number] Implanted:Qty: 1 on 11/13/2023 by Denton Palacios MD at [facility] Stent Left: Arterial [employer] [facility] [id number] 12/13/2025 [id number] / [id number] 0 / Procedures * Due to [place] state law, this organization might not be sharing negative HIV tests. Procedure Name Priority Date/Time Associated Diagnosis Comments BASIC METABOLIC PANEL Routine 11/23/2023 6:10 AM EDT HEMOGLOBIN A1C Routine 11/22/2023 2:23 AM EDT from Last 3 Months or Most Recently Relevant to Health Maintenance Results * Due to [place] state law, this organization might not be sharing negative HIV tests. * (ABNORMAL) Basic Metabolic Panel (11/23/2023 6:10 AM EDT) NA 138 135 - 145 mmol/L 11/23/2023 6:55 AM EDT [facility] K 3.9 3.5 - 5.3 mmol/L 11/23/2023 6:55 AM EDT [facility] Cl 105 98 - 107 mmol/L 11/23/2023 6:55 AM EDT [facility] CO2 24 24 - 32 mmol/L 11/23/2023 6:55 AM EDT [facility] BUN 10 7 - 23 mg/dL 11/23/2023 6:55 AM EDT [facility] Creatinine 0.70 0.60 - 1.30 mg/dL 11/23/2023 6:55 AM EDT [facility] Glucose 118(H) 65 - 99 mg/dL 11/23/2023 6:55 AM EDT [facility] Calcium 8.1(L) 8.6 - 10.5 mg/dL 11/23/2023 6:55 AM EDT [facility] Anion Gap 9 5 - 15 11/23/2023 6:55 AM EDT [facility] eGFR >90 >=60 mL/min/1. 73m2 11/23/2023 6:55 AM EDT [facility] Comment:The estimated glomer ular [...] MD LAB BLOOD ORDERABLES Mahnaz sutton Result [facility] [address] [place] [address], * (ABNORMAL) Hemoglobin A1c (11/22/2023 2:23 AM EDT) Hemoglobin A1C 6.2(H) <5.7 % of total Hgb 11/22/2023 10:11 AM EDT [facility] Comment: For someone without known diabetes, a [...] (MG/DL) 131 mg/dL 11/22/2023 10:11 AM EDT [facility] eAG (MMOL/L) 7.3 mmol/L 11/22/2023 10:11 AM EDT [facility] Comment: This test was performed on the Lumiy elmer c503 platform. Effective 05/07/23, a change in test platforms from the [employer] Discharge Planner to the Daniella elmer c503 may have shifted HbA1c results compared to historical results. Based on laboratory validation testing conducted at [facility], the Daniella platform relative to the Marino [...] EDT 11/22/2023 2:43 AM EDT Narrative [facility] - 11/22/2023 10:11 AM EDT [facility] Received Date:[id number] us Denton Palacios MD LAB BLOOD ORDERABLES Mahnaz sutton Result [facility] [address] [facility] [address], [place] [address], [facility] [address] [facility] [address], [place] [address], from Last 3 Months or Most Recently Relevant to Health Maintenance Insurance [facility] MCR REPLACE PPO Advance Directives * Full [...] 8:48 AM 09/06/2021 4:36 PM Care Teams Patient Biller Relationship Specialty Start Date End Date Jas Casarez [address] [place] [address] PCP - General 07/19/21
== END 2025-01-26 10:38 | disposition home or self-care (01) ==
LOC: HO.PMC 10:01
PROVIDERS: PCP Nurse Practitioner Family; Visit Provider Nurse Practitioner Family
DX: L97.529 Non-pressure chronic ulcer of other part of left foot with unspecified severity (principal); M25.511 Pain in right shoulder; E11.40 Type 2 diabetes mellitus with diabetic neuropathy, unspecified; G89.4 Chronic pain syndrome; M96.1 Postlaminectomy syndrome, not elsewhere classified
CPT/HCPCS: 20606; 99214

== ENCOUNTER → 2025-01-26 10:00 | Outpatient (BNVA) | payer MEDICARE, SELFPAY | PROVIDERS: PCP Nurse Practitioner Family; Visit Provider Nurse Practitioner Family | DX: M25.511 Pain in right shoulder (principal); G89.4 Chronic pain syndrome; M96.1 Postlaminectomy syndrome, not elsewhere classified; E11.40 Type 2 diabetes mellitus with diabetic neuropathy, unspecified; E11.621 Type 2 diabetes mellitus with foot ulcer; L97.529 Non-pressure chronic ulcer of other part of left foot with unspecified severity; Z51.81 Encounter for therapeutic drug level monitoring; Z79.891 Long term (current) use of opiate analgesic; Z79.4 Long term (current) use of insulin | CPT/HCPCS: 20606; 20611; 99212; J2795; J3301 ==

== ENCOUNTER 2025-02-02 10:23 | Outpatient (AMB) | payer MEDICARE, SELFPAY ==
[2025-02-02 10:35] VITALS: BP 132/66; PULSE 65; O2SAT 97; BMI 37.4
--- NOTE | 2025-02-02 10:35 | A.OFFPC_ITS ---
Vital Signs 02/02/25 10:35 Height 5 ft 9 in Weight 253 lb BMI 37.4 BP 132/66 Blood Pressure Location Lt brachial Position Sitting Pulse 65 Pulse Source Pulse Oximeter Pulse Oximetry (%) 97 Intake Visit Reasons: pre-op Intake Note: pt is here for pre op clearance for excision, a1c done in office today. Allergies NSAIDS (Non-Steroidal Anti-Inflamma Allergy (Severe, Verified 02/02/25 11:19) Anaphylaxis methadone Allergy (Intermediate, Verified 02/02/25 11:19) Vomiting Medication List - Last Reconciled 02/02/25 by Jas Casarez, [facility] acetaminophen-codeine 300-30 mg 1 tab PO BID PRN 30 days amiodarone 200 mg PO ONCE apixaban (Eliquis) 5 mg PO BID 90 days aspirin 81 mg PO DAILY blood sugar diagnostic (FreeStyle Test strips) Test blood sugar once a day cholecalciferol (vitamin D3) 50 mcg PO DAILY 90 days clindamycin HCl (Cleocin HCl) 600 mg (2 x 300 mg) PO TID 14 days CPAP Machine/Device (CPAP) use daily NS [Diabetic shoes with 3 pair of custom orthotics wear daily] diclofenac sodium 1% 4 grams topical QID PRN 30 days epinephrine (EpiPen) 0.3 mg (0.3 mL) IM Q10M PRN ketoconazole 2% 1 appl topical 2XW metformin ER 500 mg PO DAILY 90 days oxybutynin chloride ER 10 mg PO DAILY 90 days pravastatin 40 mg PO DAILY prednisone 5 mg PO BID 90 days ropinirole 1 mg PO BEDTIME semaglutide (Ozempic) 2 mg (0.75 mL) subcut QWEEK tamsulosin 0.4 mg PO DAILY 90 days venlafaxine ER 150 mg PO DAILY 90 days Tobacco use date assessed: 06/25/24 Fall risk assessment: No Falls in past year Last assessed Fall Risk: 02/02/25 Dental Screening Dental Screen Date: 06/25/24 HPI pre-op HPI Details History of Present Illness The patient is a 69 year old individual presenting for a preoperative follow-up visit for a left foot debridement. The patient has a history of a left first toe amputation and subsequently developed an ulceration inferior to the amputation site that has not healed. This ulcer demonstrates some healing but develops a recurrent infection whenever antibiotics are discontinued, and there is intermittent blood and serosanguineous drainage from the wound. The patient is currently taking doxycycline twice a day and is on the last day of a course of cephalexin. The patient is scheduled for debridement of this region and possible repair of second or third hammertoes in the next couple of weeks. In other history, the patient is losing weight with the use of a GLP-1 agonist and is feeling well. The patient has regular follow-up with a maintenance carpenter. Health Maintenance - The patient sees a maintenance carpenter on a r egular basis for monitoring. Social History Review of Systems - Constitutional: Denies symptoms of inf ection. - Cardiovascular: Denies chest pain. - Respiratory: Denies shortness of breat h. - Integumentary: Reports intermittent bl ood and serosanguineous drainage from the left foot wound. Physical Exam General: Cooperative, healthy appearing, comfortable, no acute distress and well developed, obese Orientation: Patient oriented x3 Limitations: No limitations Head: Normal to inspection Ears: Hearing grossly normal bilaterally Nose: Normal external nose present Face and sinus: Normal facial exam Eyes: Appearance normal, both eyes and all related structures Neck: Normal visual inspection and Yes full ROM Respiratory: Normal respiratory effort and able to speak in complete sentences. Clear to auscultation bilaterally Cardiovascular: Sinus bradycardia present. Normal S1 and S2 GI: Normal to inspection. Soft to palpation and nontender : testicles without masses/lesions and no hernias appreciated Skin: No rashes or lesions noted Neuro: Patient oriented x3 Extremities: Normal to inspection. left foot bandage is CD+I Results - EKG: Sinus bradycardia noted on today' s EKG. Plan Patient was informed and verbally consented to the use of an ambient scribe for clinic note documentation during this visit. 1. Non-Healing Ulcer Of The Left Foot The patient presents for preoperative clearance for a non-healing ulcer on the left foot, located inferior to a prior first toe amputation. The infection recurs when antibiotics are discontinued. The plan is for surgical debridement in the coming weeks. Currently, the patient is on doxycycline and is completing a course of cephalexin. Preoperative labs will be obtained. 2. Sinus Bradycardia An EKG performed today revealed sinus bradycardia. The patient is asymptomatic, reporting feeling great, and denies chest pain or shortness of breath. The patient is under the regular care of a maintenance carpenter. 3. Obesity The patient is obese but is successfully losing weight with the use of a GLP-1 agonist and reports feeling great. The current management appears effective. Discussion Notes I have reviewed the plan for the upcoming left foot debridement surgery, which is necessary due to a non-healing ulcer with recurrent infections. We discussed that the patient will undergo preoperative labs and an EKG, which today showed sinus bradycardia. I noted that the patient is asymptomatic and follows regularly with a maintenance carpenter. We also acknowledged the patient's successful weight loss on the current GLP-1 agonist therapy. Patient Instructions - You are scheduled for a surgery to [place] out the wound on your left foot in the next couple of weeks. - Continue taking your doxycycline antib iotic as prescribed. - Today is the last day you need to take the Cefalexin antibiotic. - Please get the blood work we ordered f or your pre-surgery check-up. - Continue with your current medication that is helping you lose weight, as it is working well. - Keep your regular appointments with [facility] heart doctor. [facility] Medical History Amputation of left great toe Cellulitis Dry gangrene Spinal cord stimulator status Polymyalgia rheumatica PAD (peripheral artery disease) Ascending aorta dilatation Sleep apnea Type 2 diabetes mellitus with peripheral neuropathy Diabetes mellitus due to underlying condition with diabetic neuropathy, without long-term current use of insulin Arterial insufficiency Iatrogenic [place]'s disease Morbid obesity Atherosclerotic cardiovascular disease Diabetic neuropathy associated with type 2 diabetes mellitus Seronegative rheumatoid arthritis Obesity (BMI 30-39.9) Vitamin D deficiency Diabetes type 2, controlled Osteopenia Adrenal 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 Painful total knee replacement, right Surgical History Status post amputation History of endarterectomy History of esophagogastroduodenoscopy (EGD) H/O colonoscopy Hx of coronary angiogram History of back surgery (~2018) History of knee replacement procedure of right knee History of knee replacement procedure of left knee Hx of cardiac cath Family History Father Angina pectoris Mother Stroke Social History Household Members: Spouse Housing: House Are you a primary healthcare marketer to a significant other at home: No Do you presently have visiting nurse or other home services: No 75 years or older and lives alone: No Alcohol intake: former Year quit: 2023 Patient Tobacco Use Status: Former Tobacco user Years Smoked: 20 years ago e-Cigarette/Vaping Use: Never Used Second Hand Smoke Exposure: No Substance Use Type: Marijuana Advance Directives Date on File: 01/07/24 service: No Current occupational status: retired Cognitive needs: No Hearing needs: No Vision needs: No Questionnaire Thrive Questionnaire Date Thrive assessed: 04/07/24 Within the past 12 months, did the food you bought not last and you didn't have the money to get more?: I choose not to answer this question THRIVE Score: 0 AGUSTINA-7 AMB Questionnaire AGUSTINA-7 Date AGUSTINA - 7 assessed: 04/07/24 Source: Developed by Drs. Sourav Perez, Cyndi Kim, Tino Alvares and colleagues, with an educational melissa from [employer]. Physical exam (Primary Care) Vital Signs: Last Vital Signs Pulse 65 02/02/25 10:35 BP 132/66 02/02/25 10:35 Pulse Ox 97 02/02/25 10:35 BMI result Body Mass Index 37.4 Tobacco/Smoking Status: Tobacco use Status Tobacco use date assessed 06/25/24 02/02/25 10:36 Patient Tobacco Use Status Former Tobacco user 02/02/25 10:36 e-Cigarette/Vaping Use Never Used 02/02/25 10:36 Thrive Assessment: Date of Thrive Assessment Date Thrive assessed 04/07/24 02/02/25 10:36 Results AMB Hemoglobin A1c AMB Hemoglobin A1c 5.5 % Last Edit by Lalo Bray CMA on 02/02/25 10: 50 Results Reviewed Results Reviewed: Laboratory Last Values Hgb A1c (Clinic) 5.5 % (4.0-6.0) 02/02/25 10:45 Coding Level of Care Code Est Pt Prev Care >65y(18347) Diagnoses Pre-op evaluation Z01.818 Assessment & Plan Assessment & Plan (1) Pre-op evaluation: Code(s): Z01.818 - Encounter for other preprocedural examination Category: Medical Plan . Orders: Orders Prothrombin Time INR Today Z01.818 - Encounter for other preprocedural examination AMB EKG-In Office Today Z01.818 - Encounter for other preprocedural examination AMB Hemoglobin A1c Today Z13.9 - Encounter for screening, unspecified Complete Blood Count Auto Diff Today Z01818 - Encounter for other preprocedural examination Comprehensive Met. Panel Today Z01818 - Encounter for other preprocedural examination TSH reflex Free T4 Today Z01818 - Encounter for other preprocedural examination Partial Thromboplastin Time Today Z01.818 - Encounter for other preprocedural examination Medications: Refilled epinephrine (EpiPen) for 2 doses 0.3 mg (0.3 mL) IM Q10M PRN 2 ea 3RF anaphylaxis
--- OUTSIDE RECORDS SUMMARY | 2025-02-02 13:03 | XMS_ITS | Clinical Summary ---
Author Organization [facility] Address [address] [place] [address] Care Team Providers Care Pocketbook Maker Name Role Phone Jas Casarez Moy Primary [...] Date Diagnosed Date Resolved Date Atherosclerosis of [place] tribe ar teries of extremities with gangrene, left [...] half, previously drank 9 drinks per week [facility] Utilities Answer Date Recorded In the past 12 months has e [employer], [employer], oil, or water [employer] threatened to shut off services in your [...] Info) Description 09/08/2025 1:00 PM EDT Appointment [facility] Vascular Lab [address] [place] [address] 09/08/2025 1:45 PM EDT Appointment [facility] [address] [place] [address] 09/08/2025 2:30 PM EDT Appointment [facility] [address] [place] [address] 09/08/2025 3:40 PM EDT Follow-Up [facility] ACC Building Vascular Surgery [address] [place] [address] Samples And Repairs Preparer: Denton Zuniga MD [address] [place] [address] Health Maintenance Due Date Last Done Comments [...] this topic Medical Devices Implanted Type Area Ict Support Technicians Device Identifier Shelf Expiration Date Model / Serial / Lot System Closure And Repair Suture-Mediate d Perclose Prostyle - [id number] Implanted:Qty: 1 on 08/09/2021 by Denton Palacios MD at [facility] Implant Left: Leg [employer] 01/02/2023 38427-03 / / System Closure And Repair Suture-Mediate d Perclose Prostyle - S0 - [id number] Implanted:Qty: 1 on 09/13/2021 by Denton Palacios MD at [facility] Implant Left: Leg [employer] [id number] 07/03/2023 [id number] / 0 / [id number] System Closure And Repair Suture-Mediate d Perclose Prostyle - S0 - [id number] Implanted:Qty: 1 on 11/13/2023 by Denton Palacios MD at [facility] Implant N/A: Groin [employer] [id number] 09/01/2025 55035-36 / 0 / [id number] Patch Pericardium Bovine .8qje7ve Photofix - [id number] Implanted:Qty: 1 on 11/21/2023 by Denton Palacios MD at [facility] Implant Left: Arterial [employer] 06/08/2025 PFP0.8X8 / / [id number] Patch Pericardium Bovine .1yxd2cp Photofix - [id number] Implanted:Qty: 1 on 11/21/2023 by Denton Palacios MD at [facility] Implant Left: Arterial [employer] 05/11/2025 PFP0.8X8 / / [id number] Stent System Vascular [id number] Biomimics 3d - S0 - [id number] Implanted:Qty: 1 on 08/09/2021 by Denton Palacios MD at [facility] Stent Left: Leg [facility] [id number] 10/21/2022 [id number] -1 1 / 0 / [id number] Stent System Vascular 6.2q482rv BiomimTapResearch 3d - S0 - [id number] Implanted:Qty: 1 on 09/13/2021 by Denton Palacios MD at [facility] Stent Right: Leg [facility] [id number] 02/09/2023 [id number] -1 0 / 0 / [id number] Stent Icast Covered [id number] m - [id number] - [id number] Implanted:Qty: 1 on 11/13/2023 by Denton Palacios MD at [facility] Stent Left: Arterial Runa [facility] [id number] 12/13/2025 40527 / [id number] 0 / Procedures * Due to [place] state law, this organization might not be sharing negative HIV tests. Procedure Name Priority Date/Time Associated Diagnosis Comments BASIC METABOLIC PANEL Routine 11/23/2023 6:10 AM EDT HEMOGLOBIN A1C Routine 11/22/2023 2:23 AM EDT from Last 3 Months or Most Recently Relevant to Health Maintenance Results * Due to [place] state law, this organization might not be sharing negative HIV tests. * (ABNORMAL) Basic Metabolic Panel (11/23/2023 6:10 AM EDT) NA 138 135 - 145 mmol/L 11/23/2023 6:55 AM EDT [facility] K 3.9 3.5 - 5.3 mmol/L 11/23/2023 6:55 AM EDT [facility] Cl 105 98 - 107 mmol/L 11/23/2023 6:55 AM EDT [facility] CO2 24 24 - 32 mmol/L 11/23/2023 6:55 AM EDT [facility] BUN 10 7 - 23 mg/dL 11/23/2023 6:55 AM EDT [facility] Creatinine 0.70 0.60 - 1.30 mg/dL 11/23/2023 6:55 AM EDT [facility] Glucose 118(H) 65 - 99 mg/dL 11/23/2023 6:55 AM EDT [facility] Calcium 8.1(L) 8.6 - 10.5 mg/dL 11/23/2023 6:55 AM EDT [facility] Anion Gap 9 5 - 15 11/23/2023 6:55 AM EDT [facility] eGFR >90 >=60 mL/min/1. 73m2 11/23/2023 6:55 AM EDT [facility] Comment:The estimated glomer ular [...] MD LAB BLOOD ORDERABLES Mahnaz sutton Result [facility] [address] [place] [address], * (ABNORMAL) Hemoglobin A1c (11/22/2023 2:23 AM EDT) Hemoglobin A1C 6.2(H) <5.7 % of total Hgb 11/22/2023 10:11 AM EDT [facility] Comment: For someone without known diabetes, a [...] (MG/DL) 131 mg/dL 11/22/2023 10:11 AM EDT [facility] eAG (MMOL/L) 7.3 mmol/L 11/22/2023 10:11 AM EDT [facility] Comment: This test was performed on the atCollab elmer c503 platform. Effective 05/07/23, a change in test platforms from the Marino Operations Staff Specialist Security to the Daniella elmer c503 may have shifted HbA1c results compared to historical results. Based on laboratory validation testing conducted at [facility], the Daniella platform relative to the Marino [...] EDT 11/22/2023 2:43 AM EDT Narrative [facility] - 11/22/2023 10:11 AM EDT [facility] Received Date:[id number] us Denton Palacios MD LAB BLOOD ORDERABLES Mahnaz sutton Result [facility] [address] [facility] 3rd Floor, [place] [address], [facility] [address] [facility] 3rd Floor, [place] [address], from Last 3 Months or Most Recently Relevant to Health Maintenance Insurance [facility] MCR REPLACE PPO Advance Directives * Full [...] 8:48 AM 09/06/2021 4:36 PM Care Teams Pocketbook Maker Relationship Specialty Start Date End Date Jas Casarez [address] [place] [address] PCP - General 07/19/21
--- OUTSIDE RECORDS SUMMARY | 2025-02-02 13:03 | XMS_ITS | Encounter Summary ---
Author Organization [facility] Address [address] [place] [address] Phone Care Team Providers Care Professor Of Architecture Name Role Phone Pcp, Unknown Primary Care Provider Unavailabl e Reason for Referral * Occupational Therapy (Routine) - Closed Specialty Diagnoses / Procedures Referred By Contjohn t Referred To Contact Occupational Therapy Diagnoses Encounter for rehabilitation System, Provider Not In, PhD [id number] [place] [address] Phone: tel: Referral ID Status Reason Start Date Expiration Date Visits Re quested Visits Authorized [id number] Closed 05/16/2017 05/16/2018 1 1 Encounter Details Date Type Department Care Team (Latest Contact Info) Description 05/16/2017 Transcribe Orders [facility] [address] [place] [address] Navjot Vieyra MD [address] [place] [address] Encounter for rehabilitation (Primary Dx) Social History [...] Primary documented in this encounter Care Teams Professor Of Architecture Relationship Specialty Start Date End Date Pcp, Unknown PCP - General 04/19/21 documented as of this encounter Additional Source Comments The information contained in this document represents components of the legal health record. It is not the complete legal health record.[facility]
--- OUTSIDE RECORDS SUMMARY | 2025-02-02 13:03 | XMS_ITS | Clinical Summary ---
Author Organization [facility] Address [address] [facility] [address] [place] [address] Phone Care Team Providers Care Remote Ruby On Rails Developer Name Role Phone Pcp, Unknown Primary Care [...] topic Medical Devices Not on file [place] [address] [place] [address] ONE CARE MEDICARE REPLACEMENT MEDICARE PART A & B [facility] CARE MEDICARE REPLACEMENT MEDICARE PART A & B [facility] MEDICARE REPLACEMENT MEDICARE PART A & B [facility] ONE CARE MEDICARE REPLACEMENT MEDICARE PART A & B [facility] ONE CARE MEDICARE REPLACEMENT MEDICARE PART A & B [facility] ONE CARE MEDICARE REPLACEMENT MEDICARE PART A & B Member Subscriber Plan / Payer (Ef fective 2016-Present) Name:Lino Nayak Member ID:[id number] Relation to Subscriber:Self Name:MaliniLino Subscriber ID:[id number] Payer ID:[id number] Group ID:Not on file Type:Medicare Address: [facility] A Fourth Act [facility] [employer] [facility] [address] [place] [phone] [facility] CARE MEDICARE REPLACEMENT MEDICARE PART A & B [facility] ONE CARE MEDICARE REPLACEMENT MEDICARE PART A & B [facility] ONE CARE MEDICARE REPLACEMENT MEDICARE PART A & B [facility] Care Teams Remote Ruby On Rails Developer Relationship Specialty Start Date End Date Pcp, Unknown PCP - General 04/19/21 Additional Source Comments The information contained in this document represents components of the legal health record. It is not the complete legal health record.[facility]
== END 2025-02-02 12:17 | disposition home or self-care (01) ==
LOC: HO.HMCC 10:23
PROVIDERS: PCP Nurse Practitioner Family; Visit Provider Nurse Practitioner Family
DX: Z01.818 Encounter for other preprocedural examination (principal); Z13.9 Encounter for screening, unspecified

== ENCOUNTER 2025-02-02 10:23 | Outpatient (REF) | payer MEDICARE, SELFPAY ==
[2025-02-02 13:23] LABS: MANUAL DIFF FLAG NO
[2025-02-02 13:36] LABS: Hematocrit 42.7 % (42.0-52.0); Hemoglobin 14.2 g/dl (14.0-18.0); Imm Gran Abs Auto 0.04 X10*3/uL (0.00-0.03); Imm Gran Pct Auto 0.6 % (0.0-0.4); Lymphocytes Absolute Auto 0.6 X10*3/uL (1.2-4.9); Mean Corpuscular HGB Conc 33.3 g/dl (31.0-36.0); Mean Corpuscular Hemoglobin 30.5 pg (27.0-33.0); Mean Corpuscular Volume 91.8 fL (80.0-98.0); NRBC Abs Auto 0.000 X10*3/uL (0.0-0.012); NRBC Pct Auto 0.0 /100WBC (0.0-0.2); Platelet Count 188 X10*3/uL (160-400); Red Blood Count 4.65 X10*6/uL (4.60-5.80); White Blood Count 6.6 X10*3/uL (4.8-10.8)
[2025-02-02 13:42] LABS: INTERNATIONAL NORM RATIO 1.3 (0.9-1.1); Prothrombin Time 16.2 SEC (11.2-13.5)
[2025-02-02 13:45] LABS: Partial Thromboplastin Time 31.2 SEC (26.7-34.1)
[2025-02-02 14:27] LABS: Alanine Aminotransferase 40 U/L (0-40); Albumin Level 4.5 g/dL (3.5-5.0); Alkaline Phosphatase 67 U/L (39-117); Anion Gap 11 (12-20); Aspartate Amino Transferase 27 U/L (5-37); Blood Urea Nitrogen 15 mg/dL (9-16); Calcium 9.6 mg/dL (8.4-10.2); Carbon Dioxide 25 mmol/L (22-29); Chloride 106 mmol/L (96-108); Estimated Glomerular Filt Rate > 60; Potassium 4.3 mmol/L (3.3-5.1); Sodium 138 mmol/L (135-145); Total Protein 7.0 g/dL (6.5-8.0)
[2025-02-02 15:26] LABS: Free T4 (Free Thyroxine) 1.18 ng/dL (0.71-1.85)
== END 2025-02-02 10:24 | disposition home or self-care (01) ==
LOC: HO.HMGCLDS 10:23
PROVIDERS: PCP Nurse Practitioner Family; Visit Provider Nurse Practitioner Family
DX: Z01.818 Encounter for other preprocedural examination (principal); R00.1 Bradycardia, unspecified; Z13.1 Encounter for screening for diabetes mellitus; Z79.01 Long term (current) use of anticoagulants
CPT/HCPCS: 36415; 80053; 83036; 84439; 84443; 85025; 85610; 85730; 99212

== ENCOUNTER 2025-02-17 14:11 | Outpatient (AMB) | payer MEDICARE, SELFPAY ==
--- OUTSIDE RECORDS SUMMARY | 2024-10-27 10:30 | XMS_ITS ---
Author Organization [facility] Address [address] [facility] [place] [address] Care Team Providers Care Agency Development Manager Name Role Phone Jas Stone Primary Care Provider Unav Bryanna Chavarria Unavailable [phone] Allergies Allergen (clinical drug ingredient) Drug/Non Drug Allergy documented on EMR Reaction Allergy Type Onset Date Status Motrin anaphylaxis Drug Allergy Activ e ibuprofen Ibuprofen anaphylaxis Drug Allergy Activ e methadone Methadone vomiting Drug Allergy Active Non-steroidal anti-inflammatory agent (FN) NSAIDs anaphylaxis Drug Allergy Active Medications Medication SIG (Take, Route, Frequency, Duration) Notes Start Date End Date Status Cephalexin 500 MG 1 capsule Orally every 8 hrs; Duration: 10 days Not-Taking Plavix Not-Taking Humira Pen 40 MG/0.4ML as directed Subcutaneous Not-Taking Venlafaxine HCl 75 MG 1 tablet with food Orally Once a day; Duration: 30 day(s) Not-Taking Amoxicillin Not-Taki ng Magnesium 400 MG as directed Orally Not-Taking Folic Acid 1 MG 1 tablet Orally Once a day; Duration: 30 day(s) Not-Taking Metoprolol Succinate ER Not-Taking Methotrexate 2.5 MG as directed Orally Not-Taking Keflex 500 MG 1 capsule Orally every 12 hrs; Duration: 10 day(s) 10/24/2023 Not-Taking Extra Depth Diabetic Shoes with 3 Pair Custom heat-molded multi-density innersoles for 1 year Dx: 12/13/2021 Active Vitamin D Active Extra Depth Orthopedic Shoes (1 Pair) with Customized Heat Molded Multidensity Innersoles (3 Pair) as directed Dx: NIDDM/Polyneuropath y (E11.42), Hammertoe Foot Deformity (M20.41,M20.42), Preulcerative Skin Lesion(s) (L85.1 07/25/2024 Active Custom Orthotics as directed A ctive Cardizem Not-Taking EpiPen Active Pravastatin Sodium 40 MG 1 tablet Orally Once a day; Duration: 30 day(s) Active metFORMIN HCl ER 500 MG 1 tablet with evening meal Orally twice a day Active Tamsulosin HCl 0.4 MG 1 capsule Orally Once a day; Duration: 30 day(s) Active Prednisone 10mg Active Amiodarone HCl 200 MG 1 tablet Orally Once a day Active Acetaminophen-Codeine 300-30 MG 1 tablet as needed Orally every 6 hrs Active Eliquis Active Effexor Active Aspirin 81 MG 1 tablet Orally Once a day; Duration: 30 day(s) Active Ketoconazole Not-Dipesh ing EPINEPHrine 0.3 MG/0.3ML as directed Injection Not-Taking Hydrocortisone Not-T aking Clindamycin HCl 3 capsules 3 times a day for 14 days Active Diclofenac Not-Takin g Ropinirole Hydrochloride Not-Taking Naloxone HCl 4 MG/0.1ML as directed Nasally Not-Taki ng Olopatadine HCl 0.1 % 1 drop into affected eye Ophthalmic Twice a day Not-Taking Lidocaine-Prilocaine 2.5-2.5 % as directed Externally Not-Taking Encounters Encounter Location Date Provider Diagnosis [facility] [address] [address] 10/27/2024 Bryanna Garcia Plan Of Treatment Next Appt Details Provider Name:Bryanna sosa, 02/23/2025 01:45:00 PM, [address] [place] [address], [phone], Provider Name:Bryanna sosa, 03/09/2025 04:00:00 PM, [address] [place] [address], [phone], Progress Notes * Lino OLIVEIRA KDOB: [birth year] (69 yo M)Acc No.[id number]:10/27/2024 Progress Note Patient: Lino CONNOR Provider: Campos Garcia DPM :1955 A ge:69 Y S ex:Male Date:10/27/2024 Address:[address] [place] [address], [id number] Pcp:Jas Casarez, LEAD SETTER- Subjective: * Chief Complaints: * * Medical History: 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 * Medications: T aking Clindamycin HCl , Notes to Pharmacist: 3 capsules 3 times a day for 14 days, Taking Amiodarone HCl 200 MG Tablet 1 tablet Orally Once a day , Taking Eliquis , Taking Acetaminophen-Codeine 300-30 MG Tablet 1 tablet as needed Orally every 6 hrs , Taking Aspirin 81 MG Tablet Chewable 1 tablet Orally Once a day , Taking Effexor , Taking EpiPen , Taking metFORMIN HCl ER 500 MG Tablet Extended Release 24 Hour 1 tablet with evening meal Orally twice a day , Taking Pravastatin Sodium 40 MG Tablet 1 tablet Orally Once a day , Taking Prednisone , Notes to Pharmacist: 10mg, Taking Tamsulosin HCl 0.4 MG Capsule 1 capsule Orally Once a day , Taking Vitamin D , Taking Extra Depth Diabetic Shoes with 3 Pair Custom heat-molded multi-density innersoles for 1 year Dx: , Taking Custom Orthotics as directed , Taking Extra Depth Orthopedic Shoes (1 Pair) with Customized Heat Molded Multidensity Innersoles (3 Pair) as directed Dx: NIDDM/Polyneuropathy (E11.42), Hammertoe Foot Deformity (M20.41,M20.42), Preulcerative Skin Lesion(s) (L85.1 , Not-Taking/PRN Cardizem , Not-Taking/PRN Folic Acid 1 MG Tablet 1 tablet Orally Once a day , Not-Taking/PRN Magnesium 400 MG Tablet as directed Orally , Not-Taking/PRN Methotrexate 2.5 MG Tablet as directed Orally , Not-Taking/PRN Metoprolol Succinate ER , Not-Taking/PRN Keflex 500 MG Capsule 1 capsule Orally every 12 hrs , Not-Taking/PRN Cephalexin 500 MG Capsule 1 capsule Orally every 8 hrs , Not-Taking/PRN Humira Pen 40 MG/0.4ML Pen-injector Kit as directed Subcutaneous , Not-Taking/PRN Plavix , Not-Taking/PRN Amoxicillin , Not-Taking/PRN Venlafaxine HCl 75 MG Tablet 1 tablet with food Orally Once a day , Not-Taking/PRN Ropinirole Hydrochloride , Not-Taking/PRN Olopatadine HCl 0.1 % Solution 1 drop into affected eye Ophthalmic Twice a day , Not-Taking/PRN Naloxone HCl 4 MG/0.1ML Liquid as directed Nasally , Not-Taking/PRN Lidocaine-Prilocaine 2.5-2.5 % Cream as directed Externally , Not-Taking/PRN Ketoconazole , Not- Taking/PRN Hydrocortisone , Not-Taking/PRN EPINEPHrine 0.3 MG/0.3ML Solution Prefilled Syringe as directed Injection , Not-Taking/PRN Diclofenac * Allergies: M ethadone: vomiting, Ibuprofen: anaphylaxis, Motrin: anaphylaxis, NSAIDs: anaphylaxis. Objective: * Vitals: Assessment: Plan: * Treatment: * Images: * The named appointment provid er may or may not be the originator of this progress note, and it is not deemed complete until electronically signed by the appointment provider. Sign off status: Pending * Provider: Campos Garcia DPM Date: 0 10/27/2024 Generated for Merrick alvarado/Pepe/Jasmeet on: 04/20/2024 06:25 PM EST
--- OUTSIDE RECORDS SUMMARY | 2025-02-04 08:30 | XMS_ITS ---
Author Organization [facility] Address [address] [place] [address] Care Team Providers Care Environmental Communications Specialist Name Role Phone Jas Stone Primary Care Provider Unav ailBryanna Guzman Unavailable [phone] Encounters Encounter Location Date Provider Diagnosis [address] [address] 02/04/2025 Bryanna Garcia Plan Of Treatment Next Appt Details Provider Name:Bryanna sosa, 02/23/2025 01:45:00 PM, [address] [place] [address], [phone], Provider Name:Bryanna sosa, 03/09/2025 04:00:00 PM, [address] [place] [address], [phone], Progress Notes * Lino OLIVEIRA KDOB: [birth year] (69 yo M)Acc No.[id number]:02/04/2025 Progress Note Patient: Jose Armando IRVINLino HOROWITZ Provider: Campos Garcia DPM :1955 A ge:69 Y S ex:Male Date:02/04/2025 Address:[address] [place] [address] nava [id number] Pcp:LADONNA Arreola Subjective: * Chief Complaints: * * Medical History: Objective: * Vitals: Assessment: Plan: * Treatment: * Images: * The named appointment provid er may or may not be the originator of this progress note, and it is not deemed complete until electronically signed by the appointment provider. Sign off status: Pending * Provider: Campos Garcia DPM Date: 04/07/2024 Generated for Merrick alvarado/Pepe/Jasmeet on: 04/20/2024 06:24 PM EST
--- OUTSIDE RECORDS SUMMARY | 2025-02-11 02:30 | XMS_ITS ---
Author Organization [facility] Address [address] [place] [address] Care Team Providers Care Herbicide Service Sales Representative Name Role Phone Jas Stone Primary Care Provider Unav ailable Bryanna Garcia Unavailable [phone] Encounters Encounter Location Date Provider Diagnosis [facility] ([facility]) [address] [place] [phone] 02/11/2025 Bryanna Garcia Subacute osteomyelit is of left foot M86.272 Assessments Encounter Date Diagnosis (ICD Code) Assessment Notes Treatment Notes Treatment Clinical Notes Section Notes 02/11/2025 Subacute osteomyelitis of left foot (ICD-10 - M86.272) Plan Of Treatment Next Appt Details Provider Name:Bryanna sosa, 02/23/2025 01:45:00 PM, [address] [place] [address], [phone], Provider Name:Bryanna sosa, 03/09/2025 04:00:00 PM, [address] [place] [address], [phone], Progress Notes * Lino OLIVEIRA KDOB: [birth year] (69 yo M)Acc No.[id number]:02/11/2025 Patient: Lino CONNOR Provider: Campos Garcia DPM :1955 A ge:69 Y S ex:Male Date:02/11/2025 Address:[address] [place] [address], Shaka vick [id number] Pcp:Jas Casarez NP-JERMAIN * Images: * The named appointment provid er may or may not be the originator of this progress note, and it is not deemed complete until electronically signed by the appointment provider. Sign off status: Pending * Provider: Campos Garcia DPM Date: 04/14/2024 Generated for Merrick alvarado/Pepe/Jasmeet on: 04/20/2024 06:24 PM EST
--- OUTSIDE RECORDS SUMMARY | 2025-02-12 06:00 | XMS_ITS ---
Author [facility] Address [address] [facility] [place] [address] Care Team Providers Care Travel Med Surg Rn Name Role Phone Jas Stone Primary Care Provider Unav Bryanna Chavarria Unavailable [phone] Allergies Allergen (clinical drug ingredient) Drug/Non Drug Allergy documented on EMR Reaction Allergy Type Onset Date Status Motrin anaphylaxis Drug Allergy Activ e ibuprofen Ibuprofen anaphylaxis Drug Allergy Activ e methadone Methadone vomiting Drug Allergy Active Non-steroidal anti-inflammatory agent (FN) NSAIDs anaphylaxis Drug Allergy Active REASON FOR VISIT Pcp-02/26, Post-op Medications Medication SIG (Take, Route, Frequency, Duration) Notes Start Date End Date Status EPINEPHrine 0.3 MG/0.3ML as directed Injection Not-Taking Diclofenac Not-Takin g Lidocaine-Prilocaine 2.5-2.5 % as directed Externally Not-Taking Ketoconazole Not-Diepsh ing Hydrocortisone Not-T aking Amoxicillin Not-Taki ng Venlafaxine HCl 75 MG 1 tablet with food Orally Once a day; Duration: 30 day(s) Not-Taking Ropinirole Hydrochloride Not-Taking Olopatadine HCl 0.1 % 1 drop into affected eye Ophthalmic Twice a day Not-Taking Naloxone HCl 4 MG/0.1ML as directed Nasally Not-Taki ng Humira Pen 40 MG/0.4ML as directed Subcutaneous Not-Taking Plavix Not-Taking Metoprolol Succinate ER Not-Taking Keflex 500 MG 1 capsule Orally every 12 hrs; Duration: 10 day(s) 10/24/2023 Not-Taking Cephalexin 500 MG 1 capsule Orally every 8 hrs; Duration: 10 days Not-Taking Clindamycin HCl 3 capsules 3 times a day for 14 days Not-Taking Cardizem Not-Taking Folic Acid 1 MG 1 tablet Orally Once a day; Duration: 30 day(s) Not-Taking Magnesium 400 MG as directed Orally Not-Taking Methotrexate 2.5 MG as directed Orally Not-Taking Doxycycline Hyclate 100 MG 1 capsule Orally Once a day; Duration: 20 days 01/19/2025 Active Ciprofloxacin HCl 500 MG 1 tablet Orally every 12 hrs; Duration: 7 days 01/26/2025 Active oxyCODONE HCl 5 MG 1 tablet as needed Orally every 6 hrs Partial Fill upon Patient Request 02/11/2025 Active Extra Depth Orthopedic Shoes (1 Pair) with Customized Heat Molded Multidensity Innersoles (3 Pair) as directed Dx: NIDDM/Polyneuropath y (E11.42), Hammertoe Foot Deformity (M20.41,M20.42), Preulcerative Skin Lesion(s) (L85.1 07/25/2024 Active Doxycycline Hyclate 100 MG 1 capsule Orally Once a day; Duration: 10 day(s) 12/29/2024 Active Prednisone 10mg Active Tamsulosin HCl 0.4 MG 1 capsule Orally Once a day; Duration: 30 day(s) Active Vitamin D Active Extra Depth Diabetic Shoes with 3 Pair Custom heat-molded multi-density innersoles for 1 year Dx: 12/13/2021 Active Custom Orthotics as directed A ctive Effexor Active EpiPen Active metFORMIN HCl ER 500 MG 1 tablet with evening meal Orally twice a day Active Pravastatin Sodium 40 MG 1 tablet Orally Once a day; Duration: 30 day(s) Active Aspirin 81 MG 1 tablet Orally Once a day; Duration: 30 day(s) Active Amiodarone HCl 200 MG 1 tablet Orally Once a day Active Eliquis Active Acetaminophen-Codeine 300-30 MG 1 tablet as needed Orally every 6 hrs Active Social History Tobacco Use: Social History [...] Interpretation Negative Vital Signs Height 5ft9in in 02/12/2025 Weight 248 lbs 02/12/2025 BMI 36.62 kg/m2 02/12/2025 Blood pressure systolic 127 mm Hg 02/13/20 25 Blood pressure diastolic 65 mm Hg 025 Encounters Encounter Location Date Provider Diagnosis [facility] [address] [address] 02/12/2025 Bryanna Garcia Subacute osteomyelitis of left foot M86.272 and Neuropathic ulcer of left foot with fat layer exposed L97.522 Assessments Encounter Date Diagnosis (ICD Code) Assessment Notes Treatment Notes Treatment Clinical Notes Section Notes 02/12/2025 Subacute osteomyelitis of left foot (ICD-10 - M86.272) 02/12/2025 Neuropathic ulcer of left foot with fat layer exposed (ICD-10 - L97.522) Response to treatment Plan Of Treatment Next Appt Details Follow Up: 1 Week, Reason: Provider Name:Bryanna Peace sosa, 02/23/2025 01:45:00 PM, [address] [place] [address], [phone], Provider Name:Bryanna Peace sosa, 03/09/2025 04:00:00 PM, [address] [place] [address], [phone], Procedure Notes * Category Sub-Category Detail Notes Dressing Change: Type: dry sterile sacha ssing , a light compressive dressing Progress Notes * Lino OLIVEIRA KDOB: [birth year] (69 yo M)Acc No.[id number]:02/12/2025 Progress Notes Patient: Lino CONNOR Provider: Campos Garcia DPM :1955 A ge:69 Y S ex:Male Date:02/12/2025 Address:[address] [place] [address], [phone] Pcp:LADONNA Arreola Subjective: * Chief Complaints: * P cp-02/26Post-op * HPI: P ost-op: The patient presents for post-op of w eil osteotomy, left third metatarsal, second metatarsal head resection. Date of Surgery : 04/14/2024 Current symptoms include P t denies fever, chills, nausea, calf pain, SOB, or increased anxiety, Pt states pain under control. Patient presents. * ROS: G eneral/Constitutional: Nausea d enies. [...] C ardiovascular: Pacemaker d enies, denies. 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 W PW?denies, denies. C HF [...] Exercise: yes. 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: . 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 D rug/Alcohol: A BRUNILDA-C (Standard) D [...] Foot Deformity (M20.41,M20.42), Preulcerative Skin Lesion(s) (L85.1 Doxycycline Hyclate 100 MG Capsule 1 capsule Orally Once a day Doxycycline Hyclate 100 MG Capsule 1 capsule Orally Once a day Ciprofloxacin HCl 500 MG Tablet 1 tablet Orally every 12 hrs oxyCODONE HCl 5 MG Tablet 1 tablet as needed Orally every 6 hrs , Notes to Pharmacist: Partial Fill upon Patient RequestTaking Amiodarone HCl 200 MG Tablet 1 tablet [...] Deformity (M20.41,M20.42), Preulcerative Skin Lesion(s) (L85.1 Taking Doxycycline Hyclate 100 MG Capsule 1 capsule Orally Once a day Taking Doxycycline Hyclate 100 MG Capsule 1 capsule Orally Once a day Taking Ciprofloxacin HCl 500 MG Tablet 1 tablet Orally every 12 hrs Taking oxyCODONE HCl 5 MG Tablet 1 tablet as needed Orally every 6 hrs , Notes to Pharmacist: Partial Fill upon Patient RequestNot-Taking/PRNClindamycin HCl , Notes to Pharmacist: 3 capsules [...] t: 5ft9in, Wt:248, BMI:36.62, Shoe size: 12EEE, BP:127/65mm Hg, BS: 104, Ht-cm: 175.26 cm, Wt-k.49 kg. * P ast Orders: L ab:HEMOGLOBIN A1C (GLYCOHEMOGLOBIN) (Order Date - 01/19/2025) (Collection Date & Time - 01/19/2025) Value Reference Range HEMOGLOBIN A1C % (HH) 5.4 * Examination: O phthalmology Referral: DIABETES EYE EXAM P rocedure Performed: Y es D ate of Exam Performed 0 10/03/2024 F indings of Diabetic Eye Exam: n o retinopathy D ressing: APPEARANCE C lean, dry, and intact, with dry to moist blood present, no malodor. D ermatologic: SURGICAL/WOUND/DRESSING: S kin and Sutures intact, Incision edges are well aligned and adhered, CFT intact , No signs or symptoms consistent with infection , (+), Pain on palpation/ecchymosis/edema, (-), erythema/hematoma/dehiscence/cellulitis. ? O rthopedic: BUNION: a lignment of toe is rectus in all plains, ROM is guarded due to discomfort. DIGITAL DEFORMITIES: a lignment of toe is rectus in all plains. X -Rays - IMAGING REPORT: Clinical Indication(s): E valuate for post op healing after surgery. Views: T aken by trainedPodiatric Mixing Place Supervisor (SF ), 3 views of Foot, AP, LAT, LO,LEFT. Findings: n ormal bone density consistent for patients age and sex, increase in soft tissue contour and density at the symptomatic site, radiolucent soft tissue gas absent. Fracture: N egative fractures identified. ? Assessment: * Assessment: 1. S ubacute osteomyelitis of left foot - M86.272 (Primary) 2 . N europathic ulcer of left foot with fat layer exposed - L97.522 N otes :Response to treatment Plan: * Treatment: * Procedures: D ressing Change:: Type: d ry sterile dressing , a light compressive dressing.? * Procedure Codes: * Preventive Medicine: Counseling: P ost-op: I reviewed with the patient the usual surgical post-op course. The patient is to call with any questions/complications, and will follow-up as scheduled. * Follow Up: 1 Week * Images: * Sign off status: Completed true * Provider: Campos Garcia DPM Date: 04/15/2024 Generated for Merrick alvarado/Pepe/Onelitting on: 04/20/2024 06:25 PM EST History and Physical Notes * HPI (History of Present Illness) Category Sub-Category Detail Notes Category Not es Post-op The patient presents for post-op of ethan osteotomy, left third metatarsal, second metatarsal head resection Patient presents Current symptoms include Pt denies fever , chills, nausea, calf pain, SOB, or increased anxiety, Pt states pain under control Date of Surgery :: 02/11/2025 Examination Category Sub-Category Detail Notes Category Not es Dermatologic SURGICAL/WOUND/DRESSING: Skin an d Sutures intact, Incision edges are well aligned and adhered, CFT intact , No signs or symptoms consistent with infection , (+), Pain on palpation/ecchymosis/edema, (-), erythema/hematoma/dehiscence/nerissa lulitis Orthopedic BUNION: alignment of toe is rectus in all plains, ROM is guarded due to discomfort DIGITAL DEFORMITIES: alignment of toe is rectus in all plains Ophthalmology Referral DIABETES EYE EXAM Procedure Perform ed:: Yes Date of Exam Performed: 10/03/2024 Findings of Diabetic Eye Exam:: no retin opathy X-Rays - IMAGING REPORT Findings: normal b one density consistent for patients age and sex, increase in soft tissue contour and density at the symptomatic site, radiolucent soft tissue gas absent Fracture: Negative fractures i dentified Views: Taken by trained Pod iatric Mixing Place Supervisor ( SF ) , 3 views of Foot, AP, LAT, LO, LEFT Clinical Indication(s): Evaluate for pos t op healing after surgery Dressing APPEARANCE Clean, dry, and intact, with dry to moist blood present, no malodor
--- OUTSIDE RECORDS SUMMARY | 2025-02-16 08:45 | XMS_ITS ---
Author Organization [facility] ([facility] Address [address] [place] [address] Care Team Providers Care Cow Tester Name Role Phone Jas Stone Primary Care Provider UnaBryanna Angel Unavailable [phone] Allergies Allergen (clinical drug ingredient) Drug/Non Drug [...] 2.5-2.5 % as directed Externally Not-Taking Ketoconazole Not-Dipesh ing Hydrocortisone Not-T aking EPINEPHrine 0.3 MG/0.3ML as directed Injection Not-Taking Diclofenac Not-Takin g Olopatadine HCl 0.1 % 1 drop into affected eye Ophthalmic Twice a day Not-Taking Naloxone HCl 4 MG/0.1ML as directed Nasally Not-Taki ng Amoxicillin Not-Taki ng Venlafaxine HCl 75 MG 1 tablet with food Orally Once a day; Duration: 30 day(s) Not-Taking Ropinirole Hydrochloride Not-Taking Plavix Not-Taking Metoprolol Succinate ER Not-Taking Keflex 500 MG 1 capsule Orally every 12 hrs; Duration: 10 day(s) 10/24/2023 Not-Taking Cephalexin 500 MG 1 capsule Orally every 8 hrs; Duration: 10 days Not-Taking Humira Pen 40 MG/0.4ML as directed Subcutaneous Not-Taking Folic Acid 1 MG 1 tablet Orally Once a day; Duration: 30 day(s) Not-Taking Magnesium 400 MG as directed Orally Not-Taking Methotrexate 2.5 MG as directed Orally Not-Taking Clindamycin HCl 3 capsules 3 times a day for 14 days Not-Taking Cardizem Not-Taking Ciprofloxacin HCl 500 MG 1 tablet Orally [...] a day; Duration: 10 day(s) 12/29/2024 Active Doxycycline Hyclate 100 MG 1 capsule Orally Once a day; Duration: 20 days 01/19/2025 Active Tamsulosin HCl 0.4 MG 1 capsule Orally Once a day; Duration: 30 day(s) Active Vitamin D Active Extra Depth Diabetic Shoes with 3 Pair Custom heat-molded multi-density innersoles for 1 year Dx: 12/13/2021 Active Custom Orthotics as directed A ctive Prednisone 10mg Active EpiPen Active metFORMIN HCl ER 500 MG 1 tablet with evening meal Orally twice a day Active Pravastatin Sodium 40 MG 1 tablet Orally Once a day; Duration: 30 day(s) Active Aspirin 81 MG 1 tablet Orally Once a day; Duration: 30 day(s) Active Effexor Active Acetaminophen-Codeine 300-30 MG 1 tablet as needed Orally every 6 hrs Active Amiodarone HCl 200 MG 1 tablet [...] Interpretation Negative Vital Signs Height 5ft9in in 02/16/2025 Weight 247 lbs 02/16/2025 BMI 36.47 kg/m2 02/16/2025 Blood pressure systolic 123 mm Hg 02/17/20 25 Blood pressure diastolic 67 mm Hg 025 Encounters Encounter Location Date Provider Diagnosis [facility] [address] [address] 02/16/2025 Bryanna Garcia Subacute osteomyelitis of left foot M86.272 and Neuropathic ulcer of left foot with fat layer exposed L97.522 Assessments Encounter Date Diagnosis (ICD Code) Assessment Notes Treatment Notes Treatment Clinical Notes Section Notes 02/16/2025 Subacute osteomyelitis of left foot (ICD-10 - M86.272) 02/16/2025 Neuropathic ulcer of left foot with fat layer exposed (ICD-10 - L97.522) Response to treatment Plan Of Treatment Next Appt Details Follow Up: 1 Week, Reason: Provider Name:Bryanna Peace sosa, 02/23/2025 01:45:00 PM, [address] [place] [address], [phone], Provider Name:Bryanna Peace sosa, 03/09/2025 04:00:00 PM, [address] [place] [address], [phone], Procedure Notes * Category Sub-Category Detail Notes Dressing Change: Type: dry sterile sacha ssing , a light compressive dressing Progress Notes * Lino OLIVEIRA KDOB: [birth year] (69 yo M)Acc No.[id number]:02/16/2025 Progress Notes Patient: Lino CONNOR Provider: Campos Garcia DPM :1955 A ge:69 Y S ex:Male Date:02/16/2025 Address:[address] [place] [address], [phone] Pcp:LADONNA Arreola Subjective: * Chief Complaints: * [...] C ardiovascular: Pacemaker d enies, denies. 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 W PW?denies, denies. C HF [...] Exercise: yes. 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: . 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 D rug/Alcohol: A BRUNILDA-C (Standard) D [...] Verified] Objective: * Vitals: H t: 5ft9in, Wt:247, BMI:36.47, Shoe size: 12EEE, BP:123/67mm Hg, BS: 105, Ht-cm: 175.26 cm, Wt-k.04 kg. * P ast Orders: L ab:HEMOGLOBIN [...] after surgery. Views: T aken by trainedPodiatric Leaf Coverer (SF ), 3 views of Foot, AP, [...] true * Provider: Campos Garcia DPM Date: 04/19/2024 Generated for Merrick alvarado/Pepe/Onelitting on: 04/20/2024 06:25 [...] dentified Views: Taken by trained Pod iatric Leaf Coverer ( SF ) , 3 views of Foot, AP, LAT, LO, LEFT Clinical Indication(s): Evaluate for pos t op healing after surgery Dressing APPEARANCE Clean, dry, and intact, with dry to moist blood present, no malodor
[2025-02-17 14:42] VITALS: BP 118/76; PULSE 90; O2SAT 97; BMI 37.1
--- NOTE | 2025-02-17 14:42 | A.OFFPC_ITS ---
Vital Signs 02/17/25 14:42 Height 5 ft 9 in Weight 251 lb BMI 37.1 BP 118/76 Blood Pressure Location Rt brachial Position Sitting Pulse 90 Pulse Source Pulse Oximeter Pulse Oximetry (%) 97 Oxygen Delivery Method Room Air Intake Visit Reasons: 6m follow up Products Mechanical Design Engineer Required: No Accompanied by: Spouse Allergies NSAIDS (Non-Steroidal Anti-Inflamma Allergy (Severe, Verified 02/17/25 14:44) Anaphylaxis methadone Allergy (Intermediate, Verified 02/17/25 14:44) Vomiting Tobacco use date assessed: 06/25/24 Fall risk assessment: No Falls in past year Last assessed Fall Risk: 02/17/25 Dental Screening Dental Screen Date: 02/17/25 Did you have a dental visit in the last 12 months?: Yes Did you have a dental problem in the last 6 months where you did not have access to dental care?: No Was dental information given to patient?: Patient has dentist HPI 6m follow up HPI Details Chief Complaint The patient presents for follow-up of his chronic conditions. History of Present Illness The patient is a 69 year old male presenting for a follow-up visit, primarily for diabetes management. He recently underwent a left foot amputation and had an ulceration. The patient follows up regularly with a sales promotion director for his foot care. His recent labs showed an A1c of 5.5, which is well-controlled. His liver enzymes were normal. There were elevated neutrophils, noted in the context of a recent infection. The patient has a history of obesity. He also follows with cardiology and urology on a regular basis. Social History Health Maintenance - The patient requires a referral to one of his cardiologists. - He follows regularly with podiatry, ca rdiology, and urology. Review of Systems - Cardiovascular: Denies chest pain. - Respiratory: Denies shortness of breat h. - Physical Exam General: Cooperative, healthy appearing, comfortable, no acute distress and well developed. Patient is obese. Orientation: Patient oriented x3 Limitations: No limitations Head: Normal to inspection Ears: Hearing grossly normal bilaterally Nose: Normal external nose present Face and sinus: Normal facial exam Neck: Normal visual inspection and Yes full ROM Respiratory: Normal respiratory effort and able to speak in complete sentences. Clear to auscultation bilaterally Cardiovascular: Regular rate and rhythm. Normal S1 and S2 GI: Normal to inspection. Soft to palpation and nontender Skin: No rashes or lesions noted Neuro: Patient oriented x3 Extremities: Normal to inspection. Left foot with a boot on due to recent procedure and ulceration. Results - Labs: - A1c: 5.5 - Liver enzymes: Perfect. - Neutrophils: Elevated, attributed to a recent infection. - Microalbumin: Already added. Plan Patient was informed and verbally consented to the use of an ambient scribe for clinic note documentation during this visit. 1. Diabetes Mellitus The patient's recent A1c was an impressive 5.5. Future labs will be ordered for his next visit, and microalbumin has already been added. 2. Follow-Up The patient needs a referral to his lead blender. He will have more labs ordered for his next visit. Discussion Notes I discussed the patient's recent lab results, noting his A1c was excellent at 5.5 and his liver enzymes were perfect. The elevated neutrophils were attributed to his recent infection. I will order more labs for his next follow-up and confirmed that a microalbumin test has already been added. We also noted the need for a referral to his lead blender. Regarding his left foot, I adhered to the surgeon's instruction not to touch it. Patient Instructions - We will provide you with a referral to see your heart doctor (lead blender). - Continue to follow up with your foot d octor (sales promotion director) and kidney doctor (urologist) as you have been. - We will order new lab tests for your n ext visit. [facility] Medical History Amputation of left great toe Cellulitis Dry gangrene Spinal cord stimulator status Polymyalgia rheumatica PAD (peripheral artery disease) Ascending aorta dilatation Sleep apnea Type 2 diabetes mellitus with peripheral neuropathy Diabetes mellitus due to underlying condition with diabetic neuropathy, without long-term current use of insulin Arterial insufficiency Iatrogenic Forrest's disease Morbid obesity Atherosclerotic cardiovascular disease Diabetic neuropathy associated with type 2 diabetes mellitus Seronegative rheumatoid arthritis Obesity (BMI 30-39.9) Vitamin D deficiency Diabetes type 2, controlled Osteopenia Adrenal 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 Painful total knee replacement, right Surgical History Status post amputation History of endarterectomy History of esophagogastroduodenoscopy (EGD) H/O colonoscopy Hx of coronary angiogram History of back surgery (~2018) History of knee replacement procedure of right knee History of knee replacement procedure of left knee Hx of cardiac cath Family History Father Angina pectoris Mother Stroke Social History Household Members: Spouse Housing: House Are you a primary childbirth and infant care teacher to a significant other at home: No Do you presently have visiting nurse or other home services: No 75 years or older and lives alone: No Alcohol intake: former Year quit: 2023 Patient Tobacco Use Status: Former Tobacco user Years Smoked: 20 years ago e-Cigarette/Vaping Use: Never Used Second Hand Smoke Exposure: No Substance Use Type: Marijuana Advance Directives Date on File: 01/07/24 service: No Current occupational status: retired Cognitive needs: No Hearing needs: No Vision needs: No Questionnaire Thrive Questionnaire Date Thrive assessed: 04/07/24 Within the past 12 months, did the food you bought not last and you didn't have the money to get more?: I choose not to answer this question THRIVE Score: 0 AGUSTINA-7 AMB Questionnaire AGUSTINA-7 Date AGUSTINA - 7 assessed: 04/07/24 Source: Developed by Drs. Sourav Perez, Cyndi Kim, Tino Alvares and colleagues, with an educational melissa from [employer]. Physical exam (Primary Care) Vital Signs: Last Vital Signs Pulse 90 02/17/25 14:42 BP 118/76 02/17/25 14:42 Pulse Ox 97 02/17/25 14:42 Oxygen Delivery Method Room Air 02/17/25 14:42 BMI result Body Mass Index 37.1 Tobacco/Smoking Status: Tobacco use Status Tobacco use date assessed 06/25/24 02/17/25 14:44 Patient Tobacco Use Status Former Tobacco user 02/17/25 14:44 e-Cigarette/Vaping Use Never Used 02/17/25 14:44 Thrive Assessment: Date of Thrive Assessment Date Thrive assessed 04/07/24 02/17/25 14:44 Coding Level of Care Code Est Pt Level 3 (13172) Diagnoses Non-healing ulcer of left foot L97.529 PAF (paroxysmal atrial fibrillation) I48.0 Type 2 diabetes mellitus with peripheral neuropathy E11.42 Assessment & Plan Assessment & Plan (1) Non-healing ulcer of left foot: Code(s): L97.529 - Non-pressure chronic ulcer of other part of left foot with unspecified severity Category: Medical (2) PAF (paroxysmal atrial fibrillation): Code(s): I48.0 - Paroxysmal atrial fibrillation Category: Medical (3) Type 2 diabetes mellitus with peripheral neuropathy: Code(s): E11.42 - Type 2 diabetes mellitus with diabetic polyneuropathy Category: Medical Plan . Orders: Orders Lipid Panel Today E11.42 - Type 2 diabetes mellitus with diabetic polyneuropathy Comprehensive Murray. Panel Fast Today E11.42 - Type 2 diabetes mellitus with diabetic polyneuropathy Referrals Cardiology Referral I48.0 - Paroxysmal atrial fibrillation Podiatry Referral L97.529 - Non-pressure chronic ulcer of other part of left foot with unspecified severity
--- OUTSIDE RECORDS SUMMARY | 2025-02-17 18:25 | XMS_ITS | Patient Health Record ---
Author Organization [facility] Address [address] [place] [address] Care Team Providers Care Normalizer Name Role Phone GUILLERMO RICHTER Primary Care Provider Cachorro Conway Jr Reason For Referral No Information Medications Medication SIG (Take, Route, Frequency, Duration) Notes Start Date End Date Status Percocet 5/325mg Act mely Flomax 0.4mg Active Plaquenil 200mg Acti ve Effexor XR 75mg Acti ve predniSONE 5mg Activ e MoviPrep 100 GM Solution Reconstituted as directed before colonoscopy Orally; Duration: 1 dose 04/10/2013 Active Social History Social History Additional Details Category Social Info Options Details Miscellaneous: 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: 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 Problem Type SNOMED Code ICD Code Onset Dates Problem Status W/U Status Risk Notes Problem Colon cancer screening (118690384) Colon cancer screening (V76.51) Active confirmed Plan Of Treatment Future Test Test Name Order Date COLONOSCOPY 04/10/2013 Insurance Providers Payer Name Payer Address Payer Phone Subscriber Number Group Number Insured Name Patient Relationship to Insured Coverage Start Date Coverage End Date LIZ (NEEDS REFERRA L) [address] [place] [address] [phone] [id number] STEVEN OLIVEIRA Self - patient is the insured Medical (General) History Medical History History ICD Code elevated Cholesterol colonoscopy 03/13/2003 Denies UT,DM,CVA,Lung disease,renal dise ase polymyalgia rheumatica arthritis Surgical History Surgery Date(Month/Year) left knee replacement 2008 right knee replacement 2007 carpal tunnel release
--- OUTSIDE RECORDS SUMMARY | 2025-02-17 18:25 | XMS_ITS | Encounter Summary ---
Author Organization [facility] Address [address] [place] [address] Phone Care Team Providers Care Cloud Administrator Name Role Phone Pcp, Unknown Primary Care Provider Unavailabl e Reason for Referral * Occupational Therapy (Routine) - Closed Specialty Diagnoses / Procedures Referred By Contjohn t Referred To Contact Occupational Therapy Diagnoses Encounter for rehabilitation System, Provider Not In, PhD [id number] [place] [address] Phone: tel: Referral ID Status Reason Start Date Expiration Date Visits Re quested Visits Authorized [id number] Closed 05/16/2017 05/16/2018 1 1 Encounter Details Date Type Department Care Team (Latest Contact Info) Description 05/16/2017 Transcribe Orders [facility] [address] [place] [address] Navjot Vieyra MD [address] [place] [phone] Encounter for rehabilitation (Primary Dx) Social History [...] Primary documented in this encounter Care Teams Cloud Administrator Relationship Specialty Start Date End Date Pcp, Unknown PCP - General 04/19/21 documented as of this encounter Additional Source Comments The information contained in this document represents components of the legal health record. It is not the complete legal health record.[facility]
--- OUTSIDE RECORDS SUMMARY | 2025-02-17 18:25 | XMS_ITS | Clinical Summary ---
Author Organization [facility] Address [address] [facility] [address] [place] [address] Phone Care Team Providers Care Bull Bucker Name Role Phone Pcp, Unknown Primary Care [...] topic Medical Devices Not on file [place] [address] [place] [address] ONE CARE MEDICARE REPLACEMENT MEDICARE PART A & B [facility] CARE MEDICARE REPLACEMENT MEDICARE PART A & B [facility] MEDICARE REPLACEMENT MEDICARE PART A & B [facility] ONE CARE MEDICARE REPLACEMENT MEDICARE PART A & B [facility] ONE CARE MEDICARE REPLACEMENT MEDICARE PART A & B [facility] ONE CARE MEDICARE REPLACEMENT MEDICARE PART A & B [facility] CARE MEDICARE REPLACEMENT MEDICARE PART A & B [facility] ONE CARE MEDICARE REPLACEMENT MEDICARE PART A & B [facility] ONE CARE MEDICARE REPLACEMENT MEDICARE PART A & B [facility] Care Teams Bull Bucker Relationship Specialty Start Date End Date Pcp, Unknown PCP - General 04/19/21 Additional Source Comments The information contained in this document represents components of the legal health record. It is not the complete legal health record.[facility]
--- OUTSIDE RECORDS SUMMARY | 2025-02-17 18:25 | XMS_ITS | Clinical Summary ---
Author Organization [facility] Address [address] [place] [address] Care Team Providers Care Clinical Transformation Specialist Name Role Phone Jas Casarez Moy Primary [...] half, previously drank 9 drinks per week [facility] Utilities Answer Date Recorded In the past 12 months has e [email or web address], [employer], oil, or water [employer] threatened to shut off services in your [...] Info) Description 09/08/2025 1:00 PM EDT Appointment [facility] [address] [place] [address] 09/08/2025 1:45 PM EDT Appointment [facility] [address] [place] [address] 09/08/2025 2:30 PM EDT Appointment [facility] [address] [place] [address] 09/08/2025 3:40 PM EDT Follow-Up [facility] Building Vascular Surgery [address] [place] [address] Junior Bookkeeper: Denton Zuniga MD [address] [place] [address] Health Maintenance Due Date Last Done Comments [...] this topic Medical Devices Implanted Type Area Mold Maker Apprentice Device Identifier Shelf Expiration Date Model / Serial / Lot System Closure And Repair Suture-Mediate d Perclose Prostyle - [id number] Implanted:Qty: 1 on 08/09/2021 by Denton Palacios MD at [facility] Implant Left: Leg [employer] 01/02/2023 [id number] / / System Closure And Repair Suture-Mediate d Perclose Prostyle - S0 - [id number] Implanted:Qty: 1 on 09/13/2021 by Denton Palacios MD at [facility] Implant Left: Leg [employer] [id number] 07/03/2023 [id number] / 0 / [id number] System Closure And Repair Suture-Mediate d Perclose Prostyle - S0 - [id number] Implanted:Qty: 1 on 11/13/2023 by Denton Palacios MD at [facility] Implant N/A: Groin [employer] [id number] 09/01/2025 93868-41 / 0 / [id number] Patch Pericardium Bovine .6nbw4oc Photofix - [id number] Implanted:Qty: 1 on 11/21/2023 by Denton Palacios MD at [facility] Implant Left: Arterial [employer] 06/08/2025 PFP0.8X8 / / [id number] Patch Pericardium Bovine .7pap8me Photofix - [id number] Implanted:Qty: 1 on 11/21/2023 by Denton Palacios MD at [facility] Implant Left: Arterial [employer] 05/11/2025 PFP0.8X8 / / [id number] Stent System Vascular [id number] Biomimics 3d - S0 - [id number] Implanted:Qty: 1 on 08/09/2021 by Denton Palacios MD at [facility] Stent Left: Leg [facility] [id number] 10/21/2022 [id number] -1 1 / 0 / [id number] Stent System Vascular 6.0d615gi BiomimCogniTens 3d - S0 - [id number] Implanted:Qty: 1 on 09/13/2021 by Denton Palacios MD at [facility] Stent Right: Leg [facility] [id number] 02/09/2023 063842 -1 0 / 0 / [id number] Stent Icast Covered [id number] m - [id number] - [id number] Implanted:Qty: 1 on 11/13/2023 by Denton Palacios MD at [facility] Stent Left: Arterial Mo-DV [facility] [id number] 12/13/2025 [id number] / [id number] / Procedures * Due to [place] state law, this organization might not be sharing negative HIV tests. Procedure Name Priority Date/Time Associated Diagnosis Comments BASIC METABOLIC PANEL Routine 11/23/2023 6:10 AM EDT HEMOGLOBIN A1C Routine 11/22/2023 2:23 AM EDT from Last 3 Months or Most Recently Relevant to Health Maintenance Results * Due to [place] state law, this organization might not be sharing negative HIV tests. * (ABNORMAL) Basic Metabolic Panel (11/23/2023 6:10 AM EDT) NA 138 135 - 145 mmol/L 11/23/2023 6:55 AM EDT [facility] K 3.9 3.5 - 5.3 mmol/L 11/23/2023 6:55 AM EDT [facility] Cl 105 98 - 107 mmol/L 11/23/2023 6:55 AM EDT [facility] CO2 24 24 - 32 mmol/L 11/23/2023 6:55 AM EDT [facility] BUN 10 7 - 23 mg/dL 11/23/2023 6:55 AM EDT [facility] Creatinine 0.70 0.60 - 1.30 mg/dL 11/23/2023 6:55 AM EDT [facility] Glucose 118(H) 65 - 99 mg/dL 11/23/2023 6:55 AM EDT [facility] Calcium 8.1(L) 8.6 - 10.5 mg/dL 11/23/2023 6:55 AM EDT [facility] Anion Gap 9 5 - 15 11/23/2023 6:55 AM EDT [facility] eGFR >90 >=60 mL/min/1. 73m2 11/23/2023 6:55 AM EDT [facility] Comment:The estimated glomer ular [...] MD LAB BLOOD ORDERABLES Mahnaz sutton Result [facility] [address] [place] [address], * (ABNORMAL) Hemoglobin A1c (11/22/2023 2:23 AM EDT) Hemoglobin A1C 6.2(H) <5.7 % of total Hgb 11/22/2023 10:11 AM EDT [facility] Comment: For someone without known diabetes, a [...] (MG/DL) 131 mg/dL 11/22/2023 10:11 AM EDT [facility] eAG (MMOL/L) 7.3 mmol/L 11/22/2023 10:11 AM EDT [facility] Comment: This test was performed on the [employer] elmer c503 platform. Effective 05/07/23, a change in test platforms from the Marino Shot Grinder Operator to the Daniella elmer c503 may have shifted HbA1c results compared to historical results. Based on laboratory validation testing conducted at [facility], the Daniella platform relative to the Marino [...] EDT 11/22/2023 2:43 AM EDT Narrative [facility] - 11/22/2023 10:11 AM EDT [facility] Received Date:[id number] us Denton Palacios MD LAB BLOOD ORDERABLES Mahnaz sutton Result [facility] [address] [facility] [address], [place] [address], [employer] [facility] [address] [facility] [address], [place] [address], from Last 3 Months or Most Recently Relevant to Health Maintenance Insurance [facility] MCR REPLACE PPO Advance Directives * [...] 8:48 AM 09/06/2021 4:36 PM Care Teams Clinical Transformation Specialist Relationship Specialty Start Date End Date Jas Casarez [address] [place] [address] PCP - General 07/19/21
--- OUTSIDE RECORDS SUMMARY | 2025-02-17 18:26 | XMS_ITS | Patient Health Record ---
Author Organization [facility] Address [address] [facility] [place] [address] Care Team Providers Care Adjunct Spanish Instructor Name Role Phone Jas Stone Primary Care Provider UnaBryanna Angel Unavailable [phone] Tono Skinner Unavailable [phone] Allergies Allergen (clinical drug ingredient) Drug/Non Drug Allergy documented on EMR Reaction Allergy Type Onset Date Status Motrin anaphylaxis Drug Allergy Activ e ibuprofen Ibuprofen anaphylaxis Drug Allergy Activ e methadone Methadone vomiting Drug Allergy Active Non-steroidal anti-inflammatory agent (FN) NSAIDs anaphylaxis Drug Allergy Active Results Component Value Reference Range Notes HEMOGLOBIN A1C (GLYCOHEMOGLO BIN) Reviewed date:09/30/2024 08:52:00 AM Interpretation: Performing Lab: Notes/Report: HEMOGLOBIN A1C % (HH) 5.4 HEMOGLOBIN A1C (GLYCOHEMOGLO BIN) Reviewed date:01/19/2025 01:43:26 PM Interpretation: Performing Lab: Notes/Report: HEMOGLOBIN A1C % (HH) 5.4 Reason For Referral No Information Medications Medication SIG (Take, Route, Frequency, Duration) Notes Start Date End Date Status Lidocaine-Prilocaine 2.5-2.5 % as directed Externally Not-Taking Acetaminophen-Codeine 300-30 MG 1 tablet as needed Orally every 6 hrs Active Folic Acid 1 MG 1 tablet Orally Once a day; Duration: 30 day(s) Not-Taking Magnesium 400 MG as directed Orally Not-Taking Amiodarone HCl 200 MG 1 tablet Orally Once a day Active Methotrexate 2.5 MG as directed Orally Not-Taking Eliquis Active Ciprofloxacin HCl 500 MG 1 tablet Orally every 12 hrs; Duration: 7 days 01/26/2025 Active oxyCODONE HCl 5 MG 1 tablet as needed Orally every 6 hrs Partial Fill upon Patient Request 02/11/2025 Active Clindamycin HCl 3 capsules 3 times a day for 14 days Not-Taking Cardizem Not-Taking Ketoconazole Not-Dipesh ing Extra Depth Orthopedic Shoes (1 Pair) with Customized Heat Molded Multidensity Innersoles (3 Pair) as directed Dx: NIDDM/Polyneuropath y (E11.42), Hammertoe Foot Deformity (M20.41,M20.42), Preulcerative Skin Lesion(s) (L85.1 07/25/2024 Active Hydrocortisone Not-T aking Doxycycline Hyclate 100 MG 1 capsule Orally Once a day; Duration: 10 day(s) 12/29/2024 Active EPINEPHrine 0.3 MG/0.3ML as directed Injection Not-Taking Doxycycline Hyclate 100 MG 1 capsule Orally Once a day; Duration: 20 days 01/19/2025 Active Diclofenac Not-Takin g Tamsulosin HCl 0.4 MG 1 capsule Orally Once a day; Duration: 30 day(s) Active Olopatadine HCl 0.1 % 1 drop into affected eye Ophthalmic Twice a day Not-Taking Vitamin D Active Naloxone HCl 4 MG/0.1ML as directed Nasally Not-Taki ng Extra Depth Diabetic Shoes with 3 Pair Custom heat-molded multi-density innersoles for 1 year Dx: 12/13/2021 Active Custom Orthotics as directed A ctive EpiPen Active Plavix Not-Taking metFORMIN HCl ER 500 MG 1 tablet with evening meal Orally twice a day Active Amoxicillin Not-Taki ng Pravastatin Sodium 40 MG 1 tablet Orally Once a day; Duration: 30 day(s) Active Venlafaxine HCl 75 MG 1 tablet with food Orally Once a day; Duration: 30 day(s) Not-Taking Prednisone 10mg Active Ropinirole Hydrochloride Not-Taking Metoprolol Succinate ER Not-Taking Keflex 500 MG 1 capsule Orally every 12 hrs; Duration: 10 day(s) 10/24/2023 Not-Taking Aspirin 81 MG 1 tablet Orally Once a day; Duration: 30 day(s) Active Cephalexin 500 MG 1 capsule Orally every 8 hrs; Duration: 10 days Not-Taking Effexor Active Humira Pen 40 MG/0.4ML as directed Subcutaneous Not-Taking Immunizations Vaccine Route Administration Date Status [...] Problem Acquired hammer toe of right foot (428535414861429 5) Other hammer toe(s) (acquired), right foot (M20.41) Active confirmed Problem Acquired hammer toe of left foot (332451892666108 3) Other hammer toe(s) (acquired), left foot (M20.42) Active confirmed Problem Polyneuropathy due to type 2 diabetes mellitus (163909702) Type 2 diabetes mellitus with diabetic polyneuropathy (E11.42) Active confirmed Problem Subacute osteomyelitis of left foot (813862405648976 07) Subacute osteomyelitis of left foot (M86.272) Active confirmed Problem 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) Active confirmed Response to treatment Problem History of amputation (Z89.9) Active confirmed Problem Peripheral vascular disease (884576558) Peripheral vascular disease of extremity (I73.9) Active confirmed Vital Signs Blood pressure diastolic 67 mm Hg 02/16/2025 Height 5ft9in in 02/16/2025 Blood pressure systolic 123 mm Hg 02/16/2025 Weight 247 lbs 02/16/2025 BMI 36.47 kg/m2 02/16/2025 Procedures Procedure Date Ordered Date Performed Result Body Sit e 70072-TDDOPFQ SKIN/TISSUE 02/20/2024 N/A 83081-UQEZWMY SKIN/TISSUE 03/10/2024 N/A 28856-PJWKFSS SKIN/TISSUE 03/17/2024 N/A 26066-GBBTWJG SKIN/TISSUE 03/26/2024 N/A 28160-WSDQDXI NAIL, 1-5 07/25/2024 N/A 53924-SIOC SKIN LESIONS, OVER 4 07/25/2024 N/A O6724-MYVMVUNF DYSTROPHIC NAILS ANY # 07/25/2024 N/A 49511-QFXWHQJ SKIN/TISSUE 09/30/2024 N/A 17300-QWSTLQK SKIN/TISSUE 12/29/2024 N/A 75429-TFUGFBG SKIN/TISSUE 01/08/2025 N/A 35077-MNLNLDR SKIN/TISSUE 01/19/2025 N/A 21548-MYESVKX SKIN/TISSUE 01/26/2025 N/A Encounters Encounter Location Date Provider Diagnosis Surgery [facility] ([place]) [address] [place] [address] 02/11/2025 Bryanna Garcia Subacute osteomyelitis of left foot M86.[address] [address] 02/20/2024 Bryanna Garcia Hammer toe of left foot M20.42 ; Skin ulcer of toe of left foot with fat layer exposed L97.522 ; Type 2 diabetes mellitus with diabetic polyneuropathy E11.42 ; History of amputation Z89.9 ; Peripheral vascular disease of extremity I73.9 and Subacute osteomyelitis of left foot M86.[address] [address] 03/10/2024 Bryanna Garcia Skin ulcer of toe of left foot with fat layer exposed L97.522 ; Type 2 diabetes mellitus with diabetic polyneuropathy E11.42 ; History of amputation Z89.9 ; Peripheral vascular disease of extremity I73.9 and Subacute osteomyelitis of left foot M86.[address] [address] 03/17/2024 Bryanna Garcia Skin ulcer of toe of left foot with fat layer exposed L97.522 ; Type 2 diabetes mellitus with diabetic polyneuropathy E11.42 ; History of amputation Z89.9 ; Peripheral vascular disease of extremity I73.9 and Subacute osteomyelitis of left foot M86.[address] [address] 03/26/2024 Bryanna Garcia Skin ulcer of toe of left foot with fat layer exposed L97.522 ; Type 2 diabetes mellitus with diabetic polyneuropathy E11.42 ; History of amputation Z89.9 ; Peripheral vascular disease of extremity I73.9 and Subacute osteomyelitis of left foot M86.[address] [address] 04/22/2024 Tono Skinner Skin ulcer of toe of left foot with fat layer exposed L97.522 ; Type 2 diabetes mellitus with diabetic polyneuropathy E11.42 ; History of amputation Z89.9 and Peripheral vascular disease of extremity I73.[address] [address] 07/25/2024 Tono Susanne Type 2 diabetes mellitus with diabetic polyneuropathy E11.42 ; Tinea unguium B35.1 ; Other hammer toe(s) (acquired), right foot M20.41 and Other hammer toe(s) (acquired), left foot M20.42 [facility] [address] [address] 09/30/2024 Bryanna Garcia Type 2 diabetes mellitus with diabetic polyneuropathy E11.42 ; Tinea unguium B35.1 and Neuropathic ulcer of left foot with fat layer exposed L97.[address] [address] 12/29/2024 Bryanna Garcia Neuropathic ulcer of left foot with fat layer exposed L97.522 and Cellulitis of foot, left L03.[address] [address] 01/08/2025 Bryanna Garcia Neuropathic ulcer of left foot with fat layer exposed L97.[address] [address] 01/19/2025 Bryanna Garcia Neuropathic ulcer of left foot with fat layer exposed L97.522 and Cellulitis of foot, left L03.[address] [address] 01/26/2025 Bryanna Garcia Neuropathic ulcer of left foot with fat layer exposed L97.522 ; Subacute osteomyelitis of left foot M86.272 ; Metatarsalgia, left foot M77.42 ; History of amputation Z89.9 and Peripheral vascular disease of extremity I73.[address] [facility] [address] 02/12/2025 Bryanna Garcia Subacute osteomyelitis of left foot M86.272 and Neuropathic ulcer of left foot with fat layer exposed L97.[address] [address] 02/16/2025 Bryanna Garcia Subacute osteomyelitis of left foot M86.272 and Neuropathic ulcer of left foot with fat layer exposed L97.[address] [facility] [address] 01/19/2025 Bryanna Garcia Neuropathic ulcer of left foot with fat layer exposed L97.[address] [address] 10/24/20[address] [facility] [address] [facility] [address] 12/29/2024 Bryanna Garcia [facility] [address] 01/06/[address] [facility] [address] 01/08/[address] [facility] [address] 01/26/2025 Bryanna Garcia [facility] [address] 02/11/2025 Bryanna Garcia [facility] [address] 02/21/2024 Bryanna Garcia Assessments Encounter Date Diagnosis (ICD Code) Assessment Notes Treatment Notes Treatment Clinical Notes Section Notes 02/11/2025 Subacute osteomyelitis of left foot (ICD-10 - M86.272) 02/12/2025 Subacute osteomyelitis of left foot (ICD-10 - M86.272) 02/16/2025 Subacute osteomyelitis of left foot (ICD-10 - M86.272) 01/26/2025 Subacute osteomyelitis of left foot (ICD-10 - M86.272) 01/26/2025 Neuropathic ulcer of left foot with fat [...] CARE INSTRUCTIONS. pdf (WOUND CARE INSTRUCTIONS. pdf) 01/08/2025 Neuropathic ulcer of left foot with fat layer exposed (ICD-10 - L97.522) Response to treatment Patient Educated with: WOUND CARE INSTRUCTIONS. pdf (WOUND CARE INSTRUCTIONS. pdf) 01/19/2025 Cellulitis of foot, left (ICD-10 - L03.116) 01/19/2025 Neuropathic ulcer of left foot with fat layer exposed (ICD-10 - L97.522) Response to treatment Response to treatment - Unchanged Patient Educated with: WOUND CARE INSTRUCTIONS. pdf (WOUND CARE INSTRUCTIONS. pdf) 01/19/2025 Neuropathic ulcer of left foot with fat layer exposed (ICD-10 - L97.522) Response to treatment 01/26/2025 Metatarsalgia, left foot (ICD-10 - M77.42) 09/30/2024 Neuropathic ulcer of left foot with [...] INSTRUCTIONS. pdf (WOUND CARE INSTRUCTIONS. pdf) 02/20/2024 Type 2 diabetes mellitus with diabetic polyneuropathy (ICD-10 - E11.42) 02/16/2025 Neuropathic ulcer of left foot with fat layer exposed (ICD-10 - L97.522) Response to treatment 02/12/2025 Neuropathic ulcer of left foot with fat layer exposed (ICD-10 - L97.522) Response to treatment 01/26/2025 History of amputation (ICD-10 - Z89.9) 02/20/2024 [...] osteomyelitis of left foot (ICD-10 - M86.272) 01/26/2025 Peripheral vascular disease of extremity (ICD-10 - I73.9) 02/20/2024 Subacute osteomyelitis of left foot (ICD-10 - M86.272) Plan Of Treatment Pending Test Test Name Order Date X ray : Ankle, left 3V 12/13/2021 CBC 02/20/2024 ESR 02/20/2024 X ray : Foot, left 3V 12/13/2021 X ray : Foot, left 3V 11/02/2023 X ray : Foot, right 3V 12/13/2021 20003-ABYYUCU NAIL, 1-5 07/25/2024 77519-WEGHSIW SKIN/TISSUE 02/11/2024 79641-DXDNSLN SKIN/TISSUE 02/20/2024 77738-XMGVDGR SKIN/TISSUE 03/10/2024 55271-RGMBAGP SKIN/TISSUE 03/17/2024 19298-DSBWLHY SKIN/TISSUE 03/26/2024 40516-JIXCGGB SKIN/TISSUE 02/04/2024 81934-NJAVTHN SKIN/TISSUE 10/24/2023 78428-WMFDWZC SKIN/TISSUE 11/02/2023 13996-HRZVNKM SKIN/TISSUE 09/30/2024 95232-FBOYGXD SKIN/TISSUE 12/29/2024 44045-BODWGBT SKIN/TISSUE 01/08/2025 54620-LPLORQU SKIN/TISSUE 01/19/2025 43194-FMLCQAY SKIN/TISSUE 01/26/2025 69872-FTLI SKIN LESIONS, OVER 4 05/23/20 25 X4083-JRMSJDOY DYSTROPHIC NAILS ANY # X ray : Ankle, right 3V 12/13/2021 39062 - Tenotomy, open flexor 02/11/2024 Next Appt Details Provider Name:Bryanna sosa, 02/23/2025 01:45:00 PM, [address] [place] [address], [phone], Provider Name:Bryanna sosa, 03/09/2025 04:00:00 PM, [address] [place] [address], [phone], Insurance Providers Payer Name Payer Address Payer Phone Subscriber Number Group Number Insured Name Patient Relationship to Insured Coverage Start Date Coverage End Date [employer] 65 Medicare Preferred [address] [place] [address] [phone] [id number] Lino Nayak Self - patient is the [...] angiogram spinal stenosis surgery 2019 bilateral TKR [id number] Stent heart ablation 12/27 Hospitalization History Reason Date(Month/Year) infected foot, heart conditions 2024 Capsasin treatment x30 minutes/4x year 1 st dosw 12/04/2021 Stent Right leg 09/13/2021 Stent Left leg 08/09/2021 Ultrasound Bilateral legs, angiogram Lef t leg 06/30/2021 Injection, [facility] 07/06/2021 MRI Left Foot 03/10/2021 Xray left Foot 03/04/2021
== END 2025-02-17 16:01 | disposition home or self-care (01) ==
PROVIDERS: PCP Nurse Practitioner Family; Visit Provider Nurse Practitioner Family
DX: L97.529 Non-pressure chronic ulcer of other part of left foot with unspecified severity (principal); I48.0 Paroxysmal atrial fibrillation; E11.42 Type 2 diabetes mellitus with diabetic polyneuropathy

== ENCOUNTER → 2025-02-17 14:11 | Outpatient (BNVA) | payer MEDICARE, SELFPAY | PROVIDERS: PCP Nurse Practitioner Family; Visit Provider Nurse Practitioner Family | DX: E11.42 Type 2 diabetes mellitus with diabetic polyneuropathy (principal); I48.0 Paroxysmal atrial fibrillation; L97.529 Non-pressure chronic ulcer of other part of left foot with unspecified severity | CPT/HCPCS: 99212 ==